=== PATIENT | male | born 1955 | race Hispanic/Latino ===

== ENCOUNTER 2017-01-26 18:57 | Observation (INO) | payer OTHER ==
[2017-01-26 18:57] VITALS: BMI 29.8
[2017-01-26] MEDS ORDERED: Sodium Chloride 0.9% 1,000 ML IV ONE (19:19)
--- NOTE | 2017-01-26 19:22 | C.PDOC ---
History Of Present Illness 61 year old patient, with a history of chest pain, coronary stent, hypertension , pancreatitis, CAD, CHF, diverticulitis, diabetes, and emphysema, presents to the ED complaining of chest pain that began today. Patient states he has been drinking alcohol for the past week. He also complains of epigastric pain and hard black stool. Patient is an alcohol abuser. Patient currently denies fever, chills, shortness of breath, palpitations, nausea, vomiting, numbness, weakness , headache, or light headedness. Time Seen by Provider: 01/26/17 19:34 Chief Complaint (Nursing): Chest Pain History Per: Patient History/Exam Limitations: no limitations Onset/Duration Of Symptoms: Hrs (today) Current Symptoms Are (Timing): Still Present Context: Other Severity: Moderate Pain Scale Rating Of: 4 Quality: "Pain" Exacerbating Factors: None Alleviating Factors: None Recent travel outside of the [place]: No Additional History Per: Prior Records Past Medical History Reviewed: Historical Data, Nursing Documentation, Vital Signs Vital Signs: Last Vital Signs Temp 98.5 F 01/26/17 18:59 Pulse 89 01/26/17 18:59 Resp 20 01/26/17 18:59 BP 150/71 01/26/17 18:59 Pulse Ox 99 01/26/17 19:41 - Medical History PMH: Anemia, Anxiety, Arthritis, Asthma, Benign Prostatic Hyperplasia, Bipolar Disorder, Bronchitis, CAD, CHF, COPD, Depression, Diabetes, Diverticulitis, Emphysema, Hepatitis (PATIENT STATED HE HAS HEPATITIS BUT COULD NOT RECALL WHICH ONE), HTN, Hypercholesterolemia, Migraine, Pancreatitis, Pneumonia, Seizures, Sleep Apnea Surgical History: CABG ((quadruple bypass)), Coronary Stent - [facility] Procedures ALCOHOL DETOXIFICATION (03/12/15) CORONAR ARTERIOGR-2 CATH (07/24/15) CORONARY ARTERY STENT INSERTION [id number] (07/24/15) DETOXIFICATION SERVICES FOR SUBSTANCE ABUSE TREATMENT (12/06/16) ESOPHAGOGASTRODUODENOSCOPY [EGD] W/CLOSED BIOPSY (05/21/13) GROUP PSYCHOTHERAPY (11/19/16) INDIVID PSYCHOTHERAP NEC (11/04/14) INDIVIDUAL PSYCHOTHERAPY, BEHAVIORAL (01/17/16) INDIVIDUAL PSYCHOTHERAPY, COGNITIVE-BEHAVIORAL (11/19/16) INDIVIDUAL PSYCHOTHERAPY, SUPPORTIVE (10/02/16) INSERTION OF ONE VASCULAR STENT (07/24/15) IRRIGATION OF EAR (05/23/15) LEFT HEART CARDIAC CATH (07/19/15) LT HEART ANGIOCARDIOGRAM (07/19/15) OTHER GROUP THERAPY (11/04/14) PACKED CELL TRANSFUSION (05/21/13) PERCUTANEOUS TRANSLUMINAL CORONARY ANGIOPLASTY [PTCA] (07/24/15) PROCEDURE ON SINGLE VESSEL (07/24/15) PSYCHIAT DRUG THERAP NEC (11/04/14) RT HEART ANGIOCARDIOGRAM (07/22/15) RT HEART CARDIAC CATH (07/22/15) VACCINATION NEC (09/28/14) Family History: States: Unknown Family Hx - Social History Hx Tobacco Use: Yes Hx Alcohol Use: Yes Hx Substance Use: Yes - Immunization History Hx Tetanus Toxoid Vaccination: Yes Hx Influenza Vaccination: Yes Hx Pneumococcal Vaccination: Yes Review Of Systems Except As Marked, All Systems Reviewed And Found Negative. Constitutional: Negative for: Fever, Chills Cardiovascular: Positive for: Chest Pain. Negative for: Palpitations, Light Headedness Respiratory: Negative for: Shortness of Breath Gastrointestinal: Positive for: Abdominal Pain. Negative for: Nausea, Vomiting Neurological: Negative for: Weakness, Numbness, Headache Physical Exam - Physical Exam Appears: Non-toxic, No Acute Distress, Other (EtOH on breath) Skin: Warm, Dry Head: Atraumatic, Normacephalic Oral Mucosa: Moist Neck: Normal ROM, Supple Chest: Symmetrical Cardiovascular: Rhythm Regular, No Murmur Respiratory: Normal Breath Sounds, No Rales, No Rhonchi, No Wheezing Gastrointestinal/Abdominal: Soft, Tenderness (epigastric), No Guarding, No Rebound, Other (mild non-specific abdominal pain) Rectal: Other (brown stool) Back: Normal Inspection, No CVA Tenderness Extremity: Normal ROM Neurological/Psych: Oriented x3, Normal Speech, Normal Cognition, Normal Motor, Normal Sensation ED Course And Treatment - Laboratory Results Result Diagrams: 01/26/17 19:29 01/26/17 19:29 ECG: Interpreted By Me, Viewed By Me ECG Rhythm: Sinus Rhythm, R BBB, Nonspecific Changes ECG Interpretation: No Acute Changes, No Changes From Prior (12/06/16), Abnormal Interpretation Of ECG: NSR, IRBBB, non-spc ST_T changes, non-significant change from old tracings of 12/06/2016 Rate From EC (bpm) O2 Sat by Pulse Oximetry: 99 (RA) Pulse Ox Interpretation: Normal Progress Note: Plan: -Labs. -EKG. -Chest x-ray. -Pepcid, IV fluids. -- Reassess and disposition Disposition Doctor Will See Patient In The: Hospital Counseled Patient/Family Regarding: Diagnosis - Disposition Referrals: Dennys Vasquez MD [Staff Provider] - Disposition: HOSPITALIZED Disposition Time: 20:57 Condition: STABLE - POA Core Measure Indicators: Chest Pain - Clinical Impression Clinical Impression: CAD (coronary artery disease) of artery bypass graft, Pancreatitis, Alcohol abuse with intoxication - Scribe Statement The provider has reviewed the documentation as recorded by the Scribe Mindy Dudley Provider Attestation: All medical record entries made by the Scribe were at my direction and personally dictated by me. I have reviewed the chart and agree that the record accurately reflects my personal performance of the history, physical exam, medical decision making, and the department course for this patient. I have also personally directed, reviewed, and agree with the discharge instructions and disposition.
[2017-01-26] MEDS ORDERED: Sodium Chloride 0.9% 1,000 ML ONE (19:31)
[2017-01-26 19:34] LABS: BASO # 0.1 K/uL (0.0-0.2); BASO % 1.3 % (0.0-2.0); EOS # 0.1 K/uL (0.0-0.7); EOS % 2.1 % (0.0-4.0); HEMATOCRIT 40.1 % (35.0-51.0); LYMPH # 2.4 K/uL (1.0-4.3); MEAN CELL VOLUME 75.4 fL (80.0-94.0); MEAN CORPUSCULAR HEMOGLOBIN 23.8 pg (27.0-31.0); MEAN CORPUSCULAR HGB CONC 31.6 g/dL (33.0-37.0); MEAN PLATELET VOLUME 7.9 fL (7.2-11.7); MONO # 0.8 K/uL (0.0-0.8); MONO % 11.1 % (0.0-10.0); NRBC % 0.1 % (0.0-2.0); RED CELL DISTRIBUTION WIDTH 23.5 % (11.5-14.5); WHITE BLOOD COUNT 6.9 K/uL (4.8-10.8)
[2017-01-26 19:43] LABS: CHLORIDE 102 mmol/L (98-107); POTASSIUM 3.3 mmol/L (3.6-5.2); SODIUM 143 mmol/L (132-148)
[2017-01-26 19:45] LABS: ALB/GLOB RATIO 1.1 (1.0-2.1); ALKALINE PHOSPHATASE 79 U/L (38-126); AST/SGOT 51 U/L (17-59); BILIRUBIN,TOTAL 0.2 mg/dL (0.2-1.3); CARBON DIOXIDE 23 mmol/L (22-30); GFR AFRICAN-AMERICAN > 60; TOTAL PROTEIN 7.4 g/dL (6.3-8.3)
[2017-01-26 19:46] LABS: ALCOHOL SERUM 265 mg/dl (0-10); ALT/SGPT 45 U/L (21-72); BLOOD UREA NITROGEN 10 mg/dL (9-20); CALCIUM 8.4 mg/dl (8.6-10.4); GLUCOSE,RANDOM 108 mg/dL (75-110)
[2017-01-26 19:47] LABS: PARTIAL THROMBOPLASTIN TIME 39 SECONDS (21-34)
[2017-01-26] MEDS: Metoprolol Succinate 25 mg XL Tab PO SCH (22:01)
[2017-01-26] MEDS ORDERED: Potassium Chloride 20 mEq/15 ml LIQ UD PO STA (22:21)
--- NOTE | 2017-01-27 08:42 | RAD ---
HISTORY: chest pain COMPARISON: No prior. TECHNIQUE: Chest PA and lateral FINDINGS: LUNGS: Mild patchy increased markings at the left lung base. Mild right hilar prominence. Nodular density at the left upper lung zone likely represents confluence of shadows with ribs and vessels. PLEURA: No significant pleural effusion identified. No pneumothorax apparent. CARDIOVASCULAR: Status post median sternotomy and CABG. OSSEOUS STRUCTURES: Degenerative changes in the spine. VISUALIZED UPPER ABDOMEN: Normal. OTHER FINDINGS: None. IMPRESSION: Mild patchy increased markings at the left lung base. Mild right hilar prominence. Nodular density at the left upper lung zone likely represents confluence of shadows with ribs and vessels.
[2017-01-27] MEDS: Pantoprazole 40 mg EC Tab PO SCH (09:03)
[2017-01-27] MEDS: Metoprolol Succinate 25 mg XL Tab PO SCH (09:03)
[2017-01-27] MEDS: Folic Acid 1 MG, Thiamine 100 MG, Multivitamin (MVI) 10 ML in Dextrose 5% In Water 1,00... IV SCH (12:01)
[2017-01-27 12:55] LABS: HEMATOCRIT 37.2 % (35.0-51.0); MEAN CELL VOLUME 76.6 fL (80.0-94.0); MEAN CORPUSCULAR HEMOGLOBIN 23.5 pg (27.0-31.0); MEAN CORPUSCULAR HGB CONC 30.7 g/dL (33.0-37.0); RED CELL DISTRIBUTION WIDTH 23.9 % (11.5-14.5)
[2017-01-27 12:57] LABS: CHLORIDE 101 mmol/L (98-107); SODIUM 139 mmol/L (132-148)
[2017-01-27 12:58] LABS: POTASSIUM 3.9 mmol/L (3.6-5.2)
[2017-01-27 13:00] LABS: GFR AFRICAN-AMERICAN > 60
[2017-01-27 13:01] LABS: BLOOD UREA NITROGEN 9 mg/dL (9-20); CALCIUM 8.4 mg/dl (8.6-10.4); CARBON DIOXIDE 23 mmol/L (22-30); GLUCOSE,RANDOM 101 mg/dL (75-110)
[2017-01-27] MEDS: Azithromycin 500 MG in Sodium Chloride 0.9% 250 ML IVPB SCH (20:00)
--- NOTE | 2017-01-27 23:36 | CP.PCM.HP ---
History of Present Illness - History of Present Illness History of Present Illness: Stormyif complain: chest pain x few hours HPI: 61 year old patient, with a history of chest pain, coronary stent, hypertension, pancreatitis, CAD, CHF, diverticulitis, diabetes, and emphysema, presents to the ED complaining of chest pain that began today. Patient states he has been drinking alcohol for the past week. He also complains of epigastric pain and hard black stool. Patient is an alcohol abuser. Patient currently denies fever, chills, shortness of breath, palpitations, nausea, vomiting, numbness, weakness, headache, or light headedness. Present on Admission - Present on Admission Any Indicators Present on Admission: No Review of Systems - Review of Systems Systems not reviewed;Unavailable: Acuity of Condition - Constitutional Constitutional: Fatigue, Lethargy, Malaise - EENT Eyes: absent: As Per HPI, Blind Spots, Blurred Vision, Change in Vision, Decreased Night Vision, Diplopia, Discharge, Dry Eye, Exophthalmos, Floaters, Irritation, Itchy Eyes, Loss of Peripheral Vision, Pain, Photophobia, Requires Corrective Lenses, Sees Flashes, Spots in Vision, Tunnel Vision, Other Visual Disturbances, Loss of Vision, Other Ears: absent: As Per HPI, Decreased Hearing, Ear Discharge, Ear Pain, Tinnitus, Abnormal Hearing, Disequilibrium, Dizziness, Other Nose/Mouth/Throat: absent: As Per HPI, Epistaxis, Nasal Congestion, Nasal Discharge, Nasal Obstruction, Nasal Trauma, Nose Pain, Post Nasal Drip, Sinus Pain, Sinus Pressure, Bleeding Gums, Change in Voice, Dental Pain, Dry Mouth, Dysphagia, Halitosis, Hoarsness, Lip Swelling, Mouth Lesions, Mouth Pain, Odynophagia, Sore Throat, Throat Swelling, Tongue Swelling, Facial Pain, Neck Pain, Neck Mass, Other - Cardiovascular Cardiovascular: Chest Pain, Dyspnea, Rapid Heart Rate. absent: As Per HPI, Acrocyanosis, Chest Pain at Rest, Chest Pain with Activity, Claudication, Diaphoresis, Dyspnea on Exertion, Edema, Irregular Heart Rhythm, Pain Radiating to Arm/Neck/Jaw, Leg Edema, Leg Ulcers, Lightheadedness, Orthopnea, Palpitations , Paroxysmal Nocturnal Dyspnea, Pedal Edema, Radiating Pain, Slow Heart Rate, Syncope, Other - Respiratory Respiratory: Dyspnea, Dyspnea on Exertion. absent: As Per HPI, Cough, Hemoptysis, Wheezing, Snoring, Stridor, Pain on Inspiration, Chest Congestion, Excessive Mucous Production, Change in Mucous Color, Pain with Coughing, Other - Gastrointestinal Gastrointestinal: absent: As Per HPI, Abdominal Pain, Belching, Bloating, Change in Bowel Habits, Change in Stool Character, Coffee Ground Emesis, Constipation, Cramping, Diarrhea, Dyspepsia, Dysphagia, Early Satiety, Excessive Flatus, Fecal Incontinence, Heartburn, Hematemesis, Hematochezia, Loose Stools, Melena, Nausea, Odynophagia, Temesmus, Vomiting, Other Past Patient History - Infectious Disease Hx of Infectious Diseases: None - Past Medical History & Family History Past Medical History?: Yes - Past Social History Smoking Status: Current Some Days Smoker - CARDIAC Hx Congestive Heart Failure: Yes Hx Hypercholesterolemia: Yes Hx Hypertension: Yes - PULMONARY Hx Asthma: Yes Hx Bronchitis: Yes Hx Chronic Obstructive Pulmonary Disease (COPD): Yes Hx Emphysema: Yes Hx Pneumonia: Yes Hx Sleep Apnea: Yes - NEUROLOGICAL Hx Migraine: Yes Hx Seizures: Yes - HEENT Hx HEENT Problems: No - RENAL Hx Chronic Kidney Disease: No - ENDOCRINE/METABOLIC Hx Endocrine Disorders: No - HEMATOLOGICAL/ONCOLOGICAL Hx Anemia: Yes - INTEGUMENTARY Hx Dermatological Problems: No - MUSCULOSKELETAL/RHEUMATOLOGICAL Hx Arthritis: Yes Hx Falls: Yes - GASTROINTESTINAL Hx Diverticulitis: Yes Hx Pancreatitis: Yes - GENITOURINARY/GYNECOLOGICAL Hx Genitourinary Disorders: Yes - PSYCHIATRIC Hx Anxiety: Yes Hx Bipolar Disorder: Yes Hx Depression: Yes Hx Substance Use: Yes - SURGICAL HISTORY Hx Coronary Artery Bypass Graft: Yes ((quadruple bypass)) Hx Coronary Stent: Yes - ANESTHESIA Hx Anesthesia: Yes Hx Anesthesia Reactions: No Hx Malignant Hyperthermia: No Meds Home Medications: Home Medication List Medication Instructions Recorded Confirmed Type Aspirin [Ecotrin] 81 mg PO DAILY #30 tabec 01/31/17 02/19/17 Rx Citalopram [celEXA] 40 mg PO DAILY #30 tab 01/31/17 Rx Gabapentin [Neurontin] 300 mg PO BID #60 cap 01/31/17 02/19/17 Rx Multivitamin [Daily Value] 1 each PO DAILY #30 tablet 01/31/17 02/19/17 Rx Pantoprazole [Protonix EC Tab] 40 mg PO DAILY #30 ect 01/31/17 02/19/17 Rx Pravastatin Sodium [Pravachol] 40 mg PO HS #30 tab 01/31/17 02/19/17 Rx Tamsulosin [Flomax] 0.4 mg PO HS #30 cap 01/31/17 02/19/17 Rx Topiramate [Topamax] 100 mg PO BID #60 tab 01/31/17 02/19/17 Rx Allergies/Adverse Reactions: Allergies Allergy/AdvReac Type Severity Reaction Status Date / Time No Known Allergies Allergy Verified 11/19/16 00:36 Physical Exam - Constitutional Appears: No Acute Distress - Eye Exam Eye Exam: EOMI, Normal appearance, PERRL Pupil Exam: NORMAL ACCOMODATION, PERRL - Respiratory Exam Respiratory Exam: Chest Wall Tenderness, Clear to Auscultation Bilateral, NORMAL BREATHING PATTERN - Cardiovascular Exam Cardiovascular Exam: REGULAR RHYTHM - GI/Abdominal Exam GI & Abdominal Exam: Normal Bowel Sounds, Tenderness. absent: Bruit, Diminished Bowel Sounds, Distended, Firm, Guarding, Hernia, Hyperactive Bowel Sounds, Hypoactive Bowel Sounds, Mass, Organomegaly, Pulsatile Mass, Rebound, Rigid, Soft - Rectal Exam Rectal Exam: Deferred Results - Vital Signs Recent Vital Signs: Last Vital Signs Temp 98.6 F 01/27/17 19:06 Pulse 88 01/27/17 19:06 Resp 20 01/27/17 19:06 BP 167/86 H 01/27/17 19:06 Pulse Ox 96 01/27/17 19:06 - Labs Result Diagrams: 01/29/17 07:22 01/30/17 06:40 Labs: Laboratory Results - last 24 hr 01/27/17 21:42 POC Glucose (mg/dL) 116 H Assessment & Plan (1) Pancreatitis Status: Acute Priority: High (2) Alcohol abuse Status: Acute (3) CAD (coronary artery disease) of artery bypass graft Status: Chronic Priority: High (4) ACS (acute coronary syndrome) Status: Ruled-out
[2017-01-28] MEDS: Metoprolol Succinate 25 mg XL Tab PO SCH ×2 (09:36→10:03)
[2017-01-28] MEDS: Pantoprazole 40 mg EC Tab PO SCH ×2 (09:36→10:01)
[2017-01-28] MEDS: Enoxaparin 40 mg Syringe SC SCH ×2 (09:37→10:01)
[2017-01-28] MEDS: Azithromycin 500 MG in Sodium Chloride 0.9% 250 ML IVPB SCH ×2 (09:39→10:21)
[2017-01-28] MEDS ORDERED: Sodium Chloride 0.9% 500 ML IV ONE (09:54)
--- NOTE | 2017-01-28 10:03 | CP.PCM.PN ---
<Wesley Bahen H - Last Filed: 01/28/17 10:17> Subjective - Date & Time of Evaluation Date of Evaluation: 01/28/17 Time of Evaluation: 09:50 - Subjective Subjective: PGY2 House Doctor Note - Rapid Response Note: Rapid called at 9:48 for hypotension. Patient says he sat up in bed and swung his legs to the side to start to get up. He felt very lightheaded. His BP was 85/51. Patient says this has happened to him before. He reports a history of CAD and CHF. Patient reports chronic mild chest pain. Patient reports difficulty breathing. Head of bed was increased to 45 degrees. He felt better. BP was 87/58 at this point. 500mL bolus to be given. 500ml to be given at 50cc/hr. Will check on patient's BP later. Orthostatics ordered for once patient is stable. Objective - Vital Signs/Intake and Output Vital Signs (last 24 hours): Temp Pulse Resp BP Pulse Ox 98.3 F 84 20 109/52 L 98 01/28/17 08:08 01/28/17 08:08 01/28/17 08:08 01/28/17 08:08 01/28/17 08:08 Intake and Output: 01/28/17 01/28/17 06:59 18:59 Intake Total 700 Output Total 1300 Balance -600 - Medications Medications: Current Medications Aspirin (Ecotrin) 81 mg PO DAILY [facility] Last Admin: 01/27/17 09:03 Dose: 81 mg Citalopram Hydrobromide (Celexa) 40 mg PO DAILY [facility] Last Admin: 01/27/17 09:05 Dose: 40 mg Doxazosin Mesylate (Cardura) 4 mg PO HS [facility] Last Admin: 01/27/17 21:06 Dose: 4 mg Enoxaparin Sodium (Lovenox) 40 mg SC DAILY [facility] Gabapentin (Neurontin) 300 mg PO BID [facility] Last Admin: 01/28/17 09:41 Dose: 300 mg Folic Acid 1 mg/ Thiamine HCl 100 mg/ Multivitamins/Vitamin C 10 ml/ Dextrose 1 ,011.2 mls @ 100 mls/hr IV 1200 [facility] Last Admin: 01/27/17 12:01 Dose: 100 mls/hr Azithromycin 500 mg/ Sodium (Chloride) 250 mls @ 250 mls/hr IVPB DAILY [facility] Last Admin: 01/28/17 09:39 Dose: 250 mls/hr Sodium Chloride (Sodium Chloride 0.9%) 500 mls @ 500 mls/hr IV .Q1H ONE Stop: 01/28/17 10:53 Sodium Chloride 500 ml/ IV (SUPPLIES) 500 mls @ 3,900.9 mls/hr IV ONCE ONE PRN Reason: 50 ML/KG/HR Stop: 01/28/17 09:55 Influenza Virus Vaccine (Afluria) 45 mcg IM .ONCE ONE Stop: 01/29/17 14:01 Lorazepam (Ativan) 1 mg IVP Q4H PRN PRN Reason: Seizure activity Last Admin: 01/27/17 15:43 Dose: 1 mg Losartan Potassium (Cozaar) 50 mg PO DAILY [facility] Last Admin: 01/27/17 19:04 Dose: 50 mg Metoprolol Succinate (Toprol Xl) 25 mg PO DAILY [facility] Last Admin: 01/27/17 09:03 Dose: 25 mg Nicotine (Nicoderm Cq) 1 patch TD DAILY [facility] Last Admin: 01/28/17 09:36 Dose: 1 patch Pantoprazole Sodium (Protonix Ec Tab) 40 mg PO DAILY [facility] Last Admin: 01/27/17 09:03 Dose: 40 mg Pneumococcal Polyvalent Vaccine (Pneumovax 23 Vaccine) 0.5 ml IM .ONCE ONE Stop: 01/29/17 14:01 Rosuvastatin Calcium (Crestor) 5 mg PO HS [facility] Last Admin: 01/27/17 21:06 Dose: 5 mg Topiramate (Topamax) 100 mg PO BID [facility] Last Admin: 01/27/17 19:04 Dose: 100 mg - Labs Labs: PT 11.5 SECONDS (9.7-12.2) 01/26/17 19:29 INR 1.0 01/26/17 19:29 APTT 39 SECONDS (21-34) H 01/26/17 19:29 <Janes Hopson - Last Filed: 02/26/17 15:13> Objective - Vital Signs/Intake and Output Vital Signs (last 24 hours): Temp Pulse Resp BP Pulse Ox 98.6 F 77 20 130/82 97 01/31/17 15:00 01/31/17 15:00 01/31/17 15:00 01/31/17 15:00 01/31/17 15:00 - Labs Labs: 01/29/17 07:22 01/30/17 06:40 PT 11.5 SECONDS (9.7-12.2) 01/26/17 19:29 INR 1.0 01/26/17 19:29 APTT 39 SECONDS (21-34) H 01/26/17 19:29 Attending/Attestation - Attestation I have personally seen and examined this patient.: Yes I have fully participated in the care of the patient.: Yes I have reviewed all pertinent clinical information, including history, physical exam and plan: Yes Notes (Text): Patient seen and examined with the resident. Agree with the residents evaluation, assessment and plan during rapid response.
[2017-01-28] MEDS: Folic Acid 1 MG, Thiamine 100 MG, Multivitamin (MVI) 10 ML in Dextrose 5% In Water 1,00... IV SCH (12:06)
--- NOTE | 2017-01-28 23:48 | CP.PCM.PN ---
Subjective - Date & Time of Evaluation Date of Evaluation: 01/28/17 Time of Evaluation: 12:59 - Subjective Subjective: Pt seen & evaluated, had rapid response today, dropped B.P on standing, is weak and dizzy Objective - Vital Signs/Intake and Output Vital Signs (last 24 hours): Temp Pulse Resp BP Pulse Ox 98.8 F 82 20 129/71 96 01/28/17 20:18 01/28/17 20:18 01/28/17 20:18 01/28/17 20:18 01/28/17 20:18 Intake and Output: 01/28/17 01/29/17 18:59 06:59 Output Total 450 Balance -450 - Medications Medications: Current Medications Aspirin (Ecotrin) 81 mg PO DAILY [facility] Last Admin: 01/28/17 10:03 Dose: 81 mg Citalopram Hydrobromide (Celexa) 40 mg PO DAILY [facility] Last Admin: 01/28/17 10:03 Dose: 40 mg Doxazosin Mesylate (Cardura) 4 mg PO HS [facility] Last Admin: 01/28/17 21:47 Dose: Not Given Enoxaparin Sodium (Lovenox) 40 mg SC DAILY [facility] Last Admin: 01/28/17 10:01 Dose: 40 mg Gabapentin (Neurontin) 300 mg PO BID [facility] Last Admin: 01/28/17 18:03 Dose: 300 mg Folic Acid 1 mg/ Thiamine HCl 100 mg/ Multivitamins/Vitamin C 10 ml/ Dextrose 1 ,011.2 mls @ 100 mls/hr IV 1200 [facility] Last Admin: 01/28/17 12:06 Dose: 100 mls/hr Azithromycin 500 mg/ Sodium (Chloride) 250 mls @ 250 mls/hr IVPB DAILY [facility] Last Admin: 01/28/17 10:21 Dose: 250 mls/hr Lorazepam (Ativan) 1 mg IVP Q4H PRN PRN Reason: Seizure activity Last Admin: 01/28/17 14:00 Dose: 1 mg Losartan Potassium (Cozaar) 50 mg PO DAILY [facility] Last Admin: 01/28/17 10:00 Dose: Not Given Metoprolol Succinate (Toprol Xl) 25 mg PO DAILY [facility] Last Admin: 01/28/17 10:03 Dose: Not Given Nicotine (Nicoderm Cq) 1 patch TD DAILY [facility] Last Admin: 03/15/17 09:36 Dose: 1 patch Pantoprazole Sodium (Protonix Ec Tab) 40 mg PO DAILY [facility] Last Admin: 01/28/17 10:01 Dose: 40 mg Rosuvastatin Calcium (Crestor) 5 mg PO HS [facility] Last Admin: 01/28/17 22:01 Dose: 5 mg Topiramate (Topamax) 100 mg PO BID [facility] Last Admin: 01/28/17 18:03 Dose: 100 mg - Labs Labs: PT 11.5 SECONDS (9.7-12.2) 01/26/17 19:29 INR 1.0 01/26/17 19:29 APTT 39 SECONDS (21-34) H 01/26/17 19:29 - Constitutional Appears: No Acute Distress - Head Exam Head Exam: ATRAUMATIC, NORMAL INSPECTION, NORMOCEPHALIC - Eye Exam Eye Exam: EOMI, Normal appearance, PERRL Pupil Exam: NORMAL ACCOMODATION, PERRL - Respiratory Exam Respiratory Exam: Clear to Ausculation Bilateral, NORMAL BREATHING PATTERN - Cardiovascular Exam Cardiovascular Exam: REGULAR RHYTHM, +S1, +S2. absent: Murmur Assessment and Plan (1) Pancreatitis Status: Acute (2) Alcohol abuse Status: Acute (3) CAD (coronary artery disease) of artery bypass graft Status: Chronic (4) ACS (acute coronary syndrome) Status: Ruled-out (5) Postural hypotension Assessment & Plan: give IV fluids Status: Acute
[2017-01-29 07:31] LABS: BASO % 0.8 % (0.0-2.0); EOS # 0.2 K/uL (0.0-0.7); EOS % 2.8 % (0.0-4.0); HEMATOCRIT 35.7 % (35.0-51.0); LYMPH # 1.3 K/uL (1.0-4.3); LYMPH % 23.1 % (20.0-40.0); MEAN CELL VOLUME 77.2 fL (80.0-94.0); MEAN CORPUSCULAR HGB CONC 32.4 g/dL (33.0-37.0); MEAN PLATELET VOLUME 8.4 fL (7.2-11.7); MONO # 0.6 K/uL (0.0-0.8); MONO % 10.9 % (0.0-10.0); NRBC % 0.1 % (0.0-2.0); RED CELL DISTRIBUTION WIDTH 22.7 % (11.5-14.5); WHITE BLOOD COUNT 5.8 K/uL (4.8-10.8)
[2017-01-29 07:51] LABS: CHLORIDE 105 mmol/L (98-107); POTASSIUM 3.2 mmol/L (3.6-5.2); SODIUM 140 mmol/L (132-148)
[2017-01-29 07:53] LABS: GFR AFRICAN-AMERICAN > 60
[2017-01-29 07:54] LABS: BLOOD UREA NITROGEN 10 mg/dL (9-20); CALCIUM 8.1 mg/dl (8.6-10.4); CARBON DIOXIDE 22 mmol/L (22-30); GLUCOSE,RANDOM 100 mg/dL (75-110)
[2017-01-29 07:55] LABS: MAGNESIUM 1.8 mg/dL (1.6-2.3)
[2017-01-29] MEDS ORDERED: Potassium Chloride 20 mEq ER Tab PO ONE ×2 (09:00→14:00)
[2017-01-29] MEDS: Pantoprazole 40 mg EC Tab PO SCH (09:51)
[2017-01-29] MEDS: Metoprolol Succinate 25 mg XL Tab PO SCH (09:53)
[2017-01-29] MEDS: Enoxaparin 40 mg Syringe SC SCH (09:53)
[2017-01-29] MEDS: Folic Acid 1 MG, Thiamine 100 MG, Multivitamin (MVI) 10 ML in Dextrose 5% In Water 1,00... IV SCH (12:09)
[2017-01-29] MEDS: Azithromycin 500 MG in Sodium Chloride 0.9% 250 ML IVPB SCH (12:31)
[2017-01-29] MEDS ORDERED: Pneumococcal 23-Valent Vaccine IM ONE (14:00)
[2017-01-29] MEDS ORDERED: Influenza Virus Vaccine 45 mcg/0.5 ml Syr IM ONE (14:00)
--- NOTE | 2017-01-29 14:25 | CON ---
DATE: 01/29/2017 REASON FOR CONSULTATION: Chest pain, dizziness, and postural hypotension. HISTORY OF PRESENT ILLNESS: The patient is a 61-year-old male who has a history of coronary artery d isease, status post coronary bypass surgery 6 years ago at [facility] and status post percutaneous coronary intervention to the posterior descending artery via saphenous vein graft in . The patient is an ETOH abuser and heavy smoker. He has multiple admissions for alcohol intox ication as well as exacerbation of chronic obstructive lung disease. He presented this time because of chest discomfort and melenotic stool. The patient did experience dizziness upon standing and post ural hypotension was documented The patient denies any recent fall or syncope. The patient denies a ny recent seizure activity. MEDICATIONS: Ativan 1 mg intravenously q. 4 hours p.r.n. for seizure activity, Zithromax 500 mg intr avenously daily, Cardura 4 mg once a day, Celexa 40 mg once a day, Cozaar 50 mg once a day, Crestor 5 mg once a day, aspirin 81 mg once a day, IV thiamine and folic acid, multivitamin infusion, K-Dur 20 mEq daily, Lovenox 40 mg subcutaneous once a day, Neurontin 300 mg twice a day, nicotine patch, Topa max 100 mg twice a day, Toprol-XL 25 mg once a day. PHYSICAL EXAMINATION: GENERAL: The patient is a middle-aged male who does not appear to be in acute distress. VITAL SIGNS: Blood pressure 137/76, heart rate 72, temperature 98.4, respirations 20. HEENT: Normocephalic. NECK: No JVD. CHEST: Bilateral rhonchi. HEART: S1, S2 regular. EXTREMITIES: No edema. LABORATORY DATA: SMA-7 is within normal limits except for potassium of 3.2. Calcium is below normal at 8.1. Magnesium is within normal limits at 1.8, PTT 39. INR is 1.0. D-dimer is within normal phillips its. Hemoglobin and hematocrit 11.5 and 77.2, white count and platelet count are within normal limit s. Alcohol level on admission was 265. Chest x-ray revealed COPD, prominent bronchovascular marking s. EKG could not be found in the [employer] database. Two sets of troponins were negative. Lipase 380 . ASSESSMENT: 1. Chest pain, myocardial infarction is ruled out. 2. Consider pancreatitis. 3. Hypokalemia. 4. Chronic heart disease, status post coronary artery bypass surgery as well as coronary stenting to the PDA. 5. Alcohol intoxication on admission. RECOMMENDATIONS: Continue current potassium replacement 20 mEq orally daily. Continue intravenous t hiamine, multivitamin, folic acid and vitamin C infusion. Continue Crestor at 5 mg once a day, Cozaa r at 50 mg once a day, Cardura 4 mg once a day, Toprol-XL 25 mg daily. I will obtain 12-lead EKG. T he patient was encouraged oral hydration. I will request a CT scan without contrast. Maxwell Moreno MD cc: [id number] TT: 01/29/2017 14:24:18 Confirmation # [id number] Dictation # [id number] sierra
--- NOTE | 2017-01-29 15:26 | CT ---
PROCEDURE: CT HEAD WITHOUT CONTRAST. HISTORY: dizzyness COMPARISON: 11/01/2015 TECHNIQUE: Axial computed tomography images were obtained through the head/brain without intravenous contrast. Radiation dose: Total exam DLP = 1111 mGy-cm. FINDINGS: HEMORRHAGE: No intracranial hemorrhage. BRAIN: No mass effect or edema. No atrophy or chronic microvascular ischemic changes. VENTRICLES: Unremarkable. No hydrocephalus. CALVARIUM: Unremarkable. PARANASAL SINUSES: Unremarkable as visualized. No significant inflammatory changes. MASTOID AIR CELLS: Unremarkable as visualized. No inflammatory changes. OTHER FINDINGS: None. IMPRESSION: No acute finding
[2017-01-30 06:56] LABS: CHLORIDE 102 mmol/L (98-107); POTASSIUM 3.6 mmol/L (3.6-5.2); SODIUM 136 mmol/L (132-148)
[2017-01-30 06:59] LABS: BLOOD UREA NITROGEN 12 mg/dL (9-20); CARBON DIOXIDE 25 mmol/L (22-30); GFR AFRICAN-AMERICAN > 60
[2017-01-30 07:00] LABS: CALCIUM 8.5 mg/dl (8.6-10.4); GLUCOSE,RANDOM 94 mg/dL (75-110)
[2017-01-30] MEDS: Pantoprazole 40 mg EC Tab PO SCH (10:08)
[2017-01-30] MEDS: Enoxaparin 40 mg Syringe SC SCH (10:09)
[2017-01-30] MEDS: Azithromycin 500 MG in Sodium Chloride 0.9% 250 ML IVPB SCH (10:11)
[2017-01-30] MEDS: Metoprolol Succinate 25 mg XL Tab PO SCH (10:11)
[2017-01-30] MEDS ORDERED: Metoprolol Succinate 25 mg XL Tab PO SCH (12:32)
[2017-01-30] MEDS ORDERED: Sodium Chloride 0.9% 500 ML IV SCH (12:45)
[2017-01-30] MEDS: Folic Acid 1 MG, Thiamine 100 MG, Multivitamin (MVI) 10 ML in Dextrose 5% In Water 1,00... IV SCH (12:57)
--- NOTE | 2017-01-30 18:01 | PN ---
DATE: 01/30/2017 The patient is still experiencing postural dizziness. There is documented postural hypotension. He denies any chest pain. The patient did experience diarrhea prior to his admission. PHYSICAL EXAMINATION: VITAL SIGNS: Blood pressure 129/78, heart rate 68, temperature 97.8, respiration 20. HEENT: Normocephalic. NECK: No JVD. CHEST: Bilateral rhonchi. HEART: S1, S2 regular. EXTREMITIES: Trace leg edema. LABORATORIES: Today's SMA-7 is within normal limits. Calcium is below normal at 8.5. Head CT scan done yesterday revealed no acute findings. ASSESSMENT: 1. Status post alcohol intoxication. 2. Coronary artery disease status post coronary artery bypass surgery as well as coronary stenting t o the posterior descending artery via saphenous vein graft. 3. Chronic obstructive lung disease. 4. Dehydration and postural hypotension. RECOMMENDATIONS: Continue current Crestor at 5 mg once a day, aspirin 81 mg once a day, subcutaneous Lovenox at 40 mg once a day. Hold Toprol-XL for now. I will review the echocardiographic study per formed today. Maxwell Moreno MD cc: [id number] TT: 01/30/2017 18:00:59 Confirmation # [id number] Dictation # [id number] [email or web address]
--- NOTE | 2017-01-31 00:17 | CP.PCM.PN ---
Subjective - Date & Time of Evaluation Date of Evaluation: 01/30/17 Time of Evaluation: 13:02 - Subjective Subjective: Pt seen & evalauted, is hypotensive, i d/c his B.P medication, francis Desai monitor pt Objective - Vital Signs/Intake and Output Vital Signs (last 24 hours): Temp Pulse Resp BP Pulse Ox 99.0 F 70 20 117/68 98 01/30/17 16:00 01/30/17 19:38 01/30/17 16:00 01/30/17 16:00 01/30/17 19:38 - Medications Medications: Current Medications Aspirin (Ecotrin) 81 mg PO DAILY [facility] Last Admin: 01/30/17 10:08 Dose: 81 mg Citalopram Hydrobromide (Celexa) 40 mg PO DAILY [facility] Last Admin: 01/30/17 10:08 Dose: 40 mg Enoxaparin Sodium (Lovenox) 40 mg SC DAILY [facility] Last Admin: 01/30/17 10:09 Dose: 40 mg Gabapentin (Neurontin) 300 mg PO BID [facility] Last Admin: 01/30/17 17:53 Dose: 300 mg Azithromycin 500 mg/ Sodium (Chloride) 250 mls @ 250 mls/hr IVPB DAILY [facility] Last Admin: 01/30/17 10:11 Dose: 250 mls/hr Lorazepam (Ativan) 1 mg IVP Q4H PRN PRN Reason: Seizure activity Last Admin: 01/29/17 01:18 Dose: 1 mg Nicotine (Nicoderm Cq) 1 patch TD DAILY [facility] Last Admin: 01/30/17 10:09 Dose: 1 patch Pantoprazole Sodium (Protonix Ec Tab) 40 mg PO DAILY [facility] Last Admin: 01/30/17 10:08 Dose: 40 mg Rosuvastatin Calcium (Crestor) 5 mg PO HS [facility] Last Admin: 01/30/17 21:51 Dose: 5 mg Topiramate (Topamax) 100 mg PO BID [facility] Last Admin: 01/30/17 17:53 Dose: 100 mg - Labs Labs: 01/29/17 07:22 01/30/17 06:40 PT 11.5 SECONDS (9.7-12.2) 01/26/17 19:29 INR 1.0 01/26/17 19:29 APTT 39 SECONDS (21-34) H 01/26/17 19:29 - Constitutional Appears: Well - Head Exam Head Exam: ATRAUMATIC, NORMAL INSPECTION, NORMOCEPHALIC - Respiratory Exam Respiratory Exam: Clear to Ausculation Bilateral, NORMAL BREATHING PATTERN - Cardiovascular Exam Cardiovascular Exam: REGULAR RHYTHM, +S1, +S2. absent: Murmur - GI/Abdominal Exam GI & Abdominal Exam: Soft, Normal Bowel Sounds. absent: Tenderness Assessment and Plan (1) Pancreatitis Status: Acute (2) Alcohol abuse Status: Acute (3) CAD (coronary artery disease) of artery bypass graft Status: Chronic (4) ACS (acute coronary syndrome) Status: Ruled-out (5) Postural hypotension Status: Acute
--- NOTE | 2017-01-31 00:19 | CP.PCM.PN ---
Subjective - Date & Time of Evaluation Date of Evaluation: 01/29/17 Time of Evaluation: 13:02 - Subjective Subjective: Patient seen and evalauted at bedside, remains hypotensive, reports chronic mild chest pain. Patient reports difficulty breathing. Head of bed was increased to 45 degrees. He felt better. BP was 87/58 at this point. 500mL bolus to be given. 500ml to be given at 50cc/hr. Will check on patient's BP later. Orthostatics ordered for once patient is stable. Objective - Vital Signs/Intake and Output Vital Signs (last 24 hours): Temp Pulse Resp BP Pulse Ox 99.0 F 70 20 117/68 98 01/30/17 16:00 01/30/17 19:38 01/30/17 16:00 01/30/17 16:00 01/30/17 19:38 - Medications Medications: Current Medications Aspirin (Ecotrin) 81 mg PO DAILY [facility] Last Admin: 01/30/17 10:08 Dose: 81 mg Citalopram Hydrobromide (Celexa) 40 mg PO DAILY [facility] Last Admin: 01/30/17 10:08 Dose: 40 mg Enoxaparin Sodium (Lovenox) 40 mg SC DAILY [facility] Last Admin: 01/30/17 10:09 Dose: 40 mg Gabapentin (Neurontin) 300 mg PO BID [facility] Last Admin: 01/30/17 17:53 Dose: 300 mg Azithromycin 500 mg/ Sodium (Chloride) 250 mls @ 250 mls/hr IVPB DAILY [facility] Last Admin: 01/30/17 10:11 Dose: 250 mls/hr Lorazepam (Ativan) 1 mg IVP Q4H PRN PRN Reason: Seizure activity Last Admin: 01/29/17 01:18 Dose: 1 mg Nicotine (Nicoderm Cq) 1 patch TD DAILY [facility] Last Admin: 01/30/17 10:09 Dose: 1 patch Pantoprazole Sodium (Protonix Ec Tab) 40 mg PO DAILY [facility] Last Admin: 01/30/17 10:08 Dose: 40 mg Rosuvastatin Calcium (Crestor) 5 mg PO HS [facility] Last Admin: 01/30/17 21:51 Dose: 5 mg Topiramate (Topamax) 100 mg PO BID [facility] Last Admin: 01/30/17 17:53 Dose: 100 mg - Labs Labs: 01/29/17 07:22 01/30/17 06:40 PT 11.5 SECONDS (9.7-12.2) 01/26/17 19:29 INR 1.0 01/26/17 19:29 APTT 39 SECONDS (21-34) H 01/26/17 19:29 - Constitutional Appears: No Acute Distress - Head Exam Head Exam: ATRAUMATIC, NORMAL INSPECTION, NORMOCEPHALIC - Eye Exam Eye Exam: EOMI, Normal appearance, PERRL Pupil Exam: NORMAL ACCOMODATION, PERRL - Respiratory Exam Respiratory Exam: Clear to Ausculation Bilateral, NORMAL BREATHING PATTERN - Cardiovascular Exam Cardiovascular Exam: Bradycardia, +S1, +S2. absent: Murmur Assessment and Plan (1) Pancreatitis Status: Acute (2) Alcohol abuse Status: Acute (3) CAD (coronary artery disease) of artery bypass graft Status: Chronic (4) ACS (acute coronary syndrome) Status: Ruled-out (5) Postural hypotension Assessment & Plan: monitor B.P D/C B.P meds Status: Acute
[2017-01-31] MEDS: Enoxaparin 40 mg Syringe SC SCH (10:07)
[2017-01-31] MEDS: Pantoprazole 40 mg EC Tab PO SCH (10:07)
[2017-01-31] MEDS: Azithromycin 500 MG in Sodium Chloride 0.9% 250 ML IVPB SCH (10:12)
--- NOTE | 2017-01-31 15:38 | CP.PCM.PN ---
Subjective - Date & Time of Evaluation Date of Evaluation: 01/31/17 Time of Evaluation: 10:25 - Subjective Subjective: Pt seen and examined today , dizziness improved , denies any chest pain, sob, head ache, blurred vision oob ambulates the hallway with cane , no c/o dizziness reported , bp remains stable after ambulation 120/72 Objective - Vital Signs/Intake and Output Vital Signs (last 24 hours): Temp Pulse Resp BP Pulse Ox 97.6 F 71 20 139/76 100 01/31/17 07:58 01/31/17 07:58 01/31/17 07:58 01/31/17 07:58 01/31/17 07:58 Intake and Output: 01/31/17 01/31/17 06:59 18:59 Output Total 800 Balance -800 - Medications Medications: Current Medications Aspirin (Ecotrin) 81 mg PO DAILY [facility] Last Admin: 01/31/17 10:07 Dose: 81 mg Citalopram Hydrobromide (Celexa) 40 mg PO DAILY [facility] Last Admin: 01/31/17 10:06 Dose: 40 mg Enoxaparin Sodium (Lovenox) 40 mg SC DAILY [facility] Last Admin: 01/31/17 10:07 Dose: 40 mg Gabapentin (Neurontin) 300 mg PO BID [facility] Last Admin: 01/31/17 10:06 Dose: 300 mg Azithromycin 500 mg/ Sodium (Chloride) 250 mls @ 250 mls/hr IVPB DAILY [facility] Last Admin: 01/31/17 10:12 Dose: 250 mls/hr Lorazepam (Ativan) 1 mg IVP Q4H PRN PRN Reason: Seizure activity Last Admin: 01/29/17 01:18 Dose: 1 mg Nicotine (Nicoderm Cq) 1 patch TD DAILY [facility] Last Admin: 01/31/17 10:07 Dose: 1 patch Pantoprazole Sodium (Protonix Ec Tab) 40 mg PO DAILY [facility] Last Admin: 01/31/17 10:07 Dose: 40 mg Rosuvastatin Calcium (Crestor) 5 mg PO HS [facility] Last Admin: 01/30/17 21:51 Dose: 5 mg Topiramate (Topamax) 100 mg PO BID [facility] Last Admin: 01/31/17 10:06 Dose: 100 mg - Labs Labs: 01/29/17 07:22 01/30/17 06:40 PT 11.5 SECONDS (9.7-12.2) 01/26/17 19:29 INR 1.0 01/26/17 19:29 APTT 39 SECONDS (21-34) H 01/26/17 19:29 Assessment and Plan - Assessment and Plan (Free Text) Assessment: A/P 61 yr old male admitted fro alcohol withdrawal postural hypotension ,x1 day , medication induced hypotension improved after d/c medication seen by Dr. Vasquez, stable for discharge home today and f/u with his office in 1 week discharge plan discussed with patient , who understands and agrees with plan Pt instructed to returns to ED if symptoms get worse or any concerning symptoms develops , who understands and agrees with plan All rx e prescribed to patient pharmacy, Pt instructed to pick medication from pharmacy
[2017-01-31 16:03] VITALS: BP 130/82; PULSE 77; TEMP 98.6; O2SAT 97
[2017-01-31 16:19] VITALS: RESP 20
--- NOTE | 2017-01-31 16:54 | CARD ---
APPROVED REPORT EXAM: Two-dimensional and M-mode echocardiogram with Doppler and color Doppler. Other Information Quality : GoodRhythm : NSR INDICATION Dyspnea CAD Chest Pain COPD smoker RISK FACTORS Hypertension Hyperlipidemia Diabetes 2D DIMENSIONS LVOT Diameter1.5 (1.8-2.4cm) M-Mode DIMENSIONS RVDd2.29 (2.1-3.2cm)Left Atrium (MM)4.35 (2.5-4.0cm) IVSd1.07 (0.7-1.1cm)Aortic Root3.25 (2.2-3.7cm) LVDd4.46 (4.0-5.6cm)Aortic Cusp Exc.1.03 (1.5-2.0cm) PWd1.14 (0.7-1.1cm)FS (%) 31 % LVDs3.06 (2.0-3.8cm)LVEF (%)59 (>50%) Aortic Valve AoV Peak Otqbfkid849.3cm/sAoV VTI47.9cmAO Peak GR.23mmHg LVOT Peak Akrkqmyv034.5cm/sLVOT VTI24.54cmAO Mean GR.13mmHg ENEDINA (VMAX)0.62bs3IDB (VTI)0.92cm2 Mitral Valve MV E Ofbtaiki69.9cm/sMV A Zwvgpsig354.9cm/sE/A ratio0.9 TDI E/Lateral E'0.0E/Medial E'0.0 Tricuspid Valve TR Peak Xsttxfui260hl/sTR Peak Gr.8yrCuJMJU10ugHe LEFT VENTRICLE The left ventricle is normal size. There is mild concentric left ventricular hypertrophy. The left ventricular function is normal. The left ventricular ejection fraction is within the normal range. No regional wall motion abnormalities noted. Transmitral Doppler flow pattern is Grade I-abnormal relaxation pattern. No left ventricle thrombus noted on this study. There is no ventricular septal defect visualized. There is no left ventricular aneurysm. There is no mass noted in the left ventricle. RIGHT VENTRICLE The right ventricle is normal size. There is normal right ventricular wall thickness. The right ventricular systolic function is normal. ATRIA The left atrium is mildly dilated. Chiari network is noted in the right atrium. The interatrial septum is intact with no evidence for an atrial septal defect. AORTIC VALVE The aortic valve is moderately calcified. No aortic regurgitation is present. There is mild to moderate valvular aortic stenosis. ENEDINA CALCULATED AT 1.1 HOWEVER THE LVOT IS UNDERMEASURED THUS LIKELY UNDERESTIMATED ENEDINA THE MEAN AV GRADIENT IS 24 MMHG. C/W MILD There is no aortic valvular vegetation. MITRAL VALVE Mitral annular calcification is moderate. The mitral valve leaflets are thickened and calcified. There is no evidence of mitral valve prolapse. There is no mitral valve stenosis. There is no mitral valve regurgitation noted. TRICUSPID VALVE The tricuspid valve is normal in structure and function. There is trace tricuspid regurgitation. There is no tricuspid valve prolapse or vegetation. There is no tricuspid valve stenosis. PULMONIC VALVE The pulmonary valve is normal in structure and function. There is trace to mild pulmonic valvular regurgitation. There is no pulmonic valvular stenosis. GREAT VESSELS The aortic root is normal in size. The ascending aorta is normal in size. The pulmonary artery is normal. The IVC is normal in size and collapses >50% with inspiration. PERICARDIAL EFFUSION The pericardium appears normal. There is no pleural effusion. <Conclusion> There is mild concentric left ventricular hypertrophy. Transmitral Doppler flow pattern is Grade I-abnormal relaxation pattern. The aortic valve is moderately calcified. There is mild to moderate valvular aortic stenosis. ENEDINA CALCULATED AT 1.1 HOWEVER THE LVOT IS UNDERMEASURED THUS LIKELY UNDERESTIMATED ENEDINA THE MEAN AV GRADIENT IS 24 MMHG. C/W MILD Mitral annular calcification is moderate. The mitral valve leaflets are thickened and calcified. There is trace tricuspid regurgitation. There is trace to mild pulmonic valvular regurgitation. The left ventricular ejection fraction is within the normal range.
--- NOTE | 2017-01-31 17:53 | PN ---
DATE: 01/31/2017 The patient denies chest pain or dizziness. He is ambulating. VITAL SIGNS: Blood pressure 130/82, heart rate 77, temperature 98.6, respirations 20. HENT: Normocephalic. NECK: No JVD. CHEST: Clear. HEART: S1, S2 regular. EXTREMITIES: No edema. LABORATORIES: Today's blood sugar are 96 and 84. ASSESSMENT: 1. Status post ethyl alcohol intoxication. 2. Improved postural hypertension and dehydration. 3. Coronary artery disease, status post coronary artery bypass surgery as well as coronary stenting. RECOMMENDATIONS: Case was discussed at length with the primary physician, Dr. Dennys Vasquez, and [facility] Any RAMOS. The patient can be discharged on Crestor, aspirin, Neurontin, Protonix, and Topamax. Cardura was discontinued. Maxwell Moreno MD cc: [id number] TT: 01/31/2017 17:53:09 Confirmation # [id number] Dictation # [id number]
--- NOTE | 2017-01-31 23:31 | CP.PCM.DIS ---
Provider - Provider Date of Admission: 01/27/17 17:39 Attending physician: Dennys Vasquez MD Time Spent in preparation of Discharge (in minutes): 30 Diagnosis - Discharge Diagnosis (1) Pancreatitis Status: Acute Priority: High (2) Alcohol abuse Status: Acute (3) CAD (coronary artery disease) of artery bypass graft Status: Chronic Priority: High (4) ACS (acute coronary syndrome) Status: Ruled-out (5) Postural hypotension Status: Acute Hospital Course - Lab Results Lab Results: Most Recent Lab Values WBC 5.8 K/uL (4.8-10.8) 01/29/17 07:22 RBC 4.62 Mil/uL (4.40-5.90) 01/29/17 07:22 Hgb 11.5 g/dL (12.0-18.0) L 01/29/17 07:22 Hct 35.7 % (35.0-51.0) 01/29/17 07:22 MCV 77.2 fL (80.0-94.0) L 01/29/17 07:22 MCH 25.0 pg (27.0-31.0) L 01/29/17 07:22 MCHC 32.4 g/dL (33.0-37.0) L 01/29/17 07:22 RDW 22.7 % (11.5-14.5) H 01/29/17 07:22 Plt Count 147 K/uL (130-400) 01/29/17 07:22 MPV 8.4 fL (7.2-11.7) 01/29/17 07:22 Neut % (Auto) 62.4 % (50.0-75.0) 01/29/17 07:22 Lymph % (Auto) 23.1 % (20.0-40.0) 01/29/17 07:22 [place] % (Auto) 10.9 % (0.0-10.0) H 01/29/17 07:22 Eos % (Auto) 2.8 % (0.0-4.0) 01/29/17 07:22 Baso % (Auto) 0.8 % (0.0-2.0) 01/29/17 07:22 Neut # 3.6 K/uL (1.8-7.0) 01/29/17 07:22 Lymph # 1.3 K/uL (1.0-4.3) 01/29/17 07:22 [place] # 0.6 K/uL (0.0-0.8) 01/29/17 07:22 Eos # 0.2 K/uL (0.0-0.7) 01/29/17 07:22 Baso # 0.0 K/uL (0.0-0.2) 01/29/17 07:22 PT 11.5 SECONDS (9.7-12.2) 01/26/17 19:29 INR 1.0 01/26/17 19:29 APTT 39 SECONDS (21-34) H 01/26/17 19:29 D-Dimer, Quantitative < 200 ng/mlDDU (0-243) 01/26/17 19:29 Sodium 136 mmol/L (132-148) 01/30/17 06:40 Potassium 3.6 mmol/L (3.6-5.2) 01/30/17 06:40 Chloride 102 mmol/L (98-107) 01/30/17 06:40 Carbon Dioxide 25 mmol/L (22-30) 01/30/17 06:40 Anion Gap 14 (10-20) 01/30/17 06:40 BUN 12 mg/dL (9-20) 01/30/17 06:40 Creatinine 0.9 MG/DL (0.8-1.5) 01/30/17 06:40 Est GFR ( Amer) > 60 01/30/17 06:40 Est GFR (Non-Af Amer) > 60 01/30/17 06:40 POC Glucose (mg/dL) 84 mg/dL (65-110) 01/31/17 11:49 Random Glucose 94 mg/dL (75-110) 01/30/17 06:40 Calcium 8.5 mg/dl (8.6-10.4) L 01/30/17 06:40 Magnesium 1.8 mg/dL (1.6-2.3) 01/29/17 07:22 Total Bilirubin 0.2 mg/dL (0.2-1.3) 01/26/17 19:29 AST 51 U/L (17-59) 01/26/17 19:29 ALT 45 U/L (21-72) 01/26/17 19:29 Alkaline Phosphatase 79 U/L (38-126) 01/26/17 19:29 Total Creatine Kinase 164 U/L (55-170) 01/27/17 11:00 CK-MB (Mass) 6.69 ng/mL (0.0-3.38) H 01/27/17 11:00 Troponin I 0.0180 ng/mL (0.00-0.120) 01/26/17 19:29 Troponin I, Quant < 0.0120 ng/mL (0.00-0.120) 01/27/17 11:00 Total Protein 7.4 g/dL (6.3-8.3) 01/26/17 19:29 Albumin 4.0 g/dL (3.5-5.0) 01/26/17 19:29 Globulin 3.5 gm/dL (2.2-3.9) 01/26/17 19:29 Albumin/Globulin Ratio 1.1 (1.0-2.1) 01/26/17 19:29 Lipase 380 U/L (23-300) H 01/26/17 19:29 Stool Occult Blood Negative (NEGATIVE) 01/26/17 19:31 Alcohol, Quantitative 265 mg/dl (0-10) H 01/26/17 19:29 Blood Type O POSITIVE 01/26/17 19:29 Antibody Screen Negative 01/26/17 19:29 - Hospital Course Hospital Course: Pt seen and examined today , dizziness improved , denies any chest pain, sob, head ache, blurred vision oob ambulates the hallway with cane , no c/o dizziness reported , bp remains stable after ambulation 120/72 chest psin resolved, b.p is stable dc her b.p medss pt is anxious but enies any complains is for d/c to home Discharge Exam - Head Exam Head Exam: ATRAUMATIC, NORMAL INSPECTION, NORMOCEPHALIC - Eye Exam Eye Exam: EOMI, Normal appearance, PERRL Pupil Exam: NORMAL ACCOMODATION, PERRL - ENT Exam ENT Exam: Normal Oropharynx - Respiratory Exam Respiratory Exam: Clear to PA & Lateral, NORMAL BREATHING PATTERN - Cardiovascular Exam Cardiovascular Exam: REGULAR RHYTHM, +S1, +S2 - GI/Abdominal Exam GI & Abdominal Exam: Normal Bowel Sounds Discharge Plan - Discharge Medications Prescriptions: Multivitamin [Daily Value] 1 each PO DAILY #30 tablet Aspirin [Ecotrin] 81 mg PO DAILY #30 tabec Tamsulosin [Flomax] 0.4 mg PO HS #30 cap Gabapentin [Neurontin] 300 mg PO BID #60 cap Pravastatin Sodium [Pravachol] 40 mg PO HS #30 tab Pantoprazole [Protonix EC Tab] 40 mg PO DAILY #30 ect Topiramate [Topamax] 100 mg PO BID #60 tab Citalopram [celEXA] 40 mg PO DAILY #30 tab - Follow Up Plan Condition: STABLE Disposition: HOME/ ROUTINE Instructions: Coronary Artery Disease (DC), How to Stop Smoking (DC), Pancreatitis (DC), Heart Healthy Diet (DC), Abuse of Alcohol (DC), Hypertension (DC) Additional Instructions: f/u with Dr. Vasquez office in 1 week continue medication as per Med. Rec. take Metoprolol only for BP Referrals: Dennys Vasquez MD [Staff Provider] -
--- NOTE | 2017-02-07 15:09 | CARD ---
APPROVED REPORT EKG Measurement Heart [id number] <Conclusion> Normal sinus rhythm Possible Left atrial enlargement Incomplete right bundle branch block Left ventricular hypertrophy Nonspecific T wave abnormality Abnormal ECG
--- NOTE | 2017-03-07 14:42 | CARD ---
APPROVED REPORT EKG Measurement Heart [id number] <Conclusion> Normal sinus rhythm Possible Left atrial enlargement Incomplete right bundle branch block Possible Inferior infarct, age undetermined Cannot rule out Anteroseptal infarct, age undetermined Abnormal ECG
== END 2017-01-31 17:20 | disposition home or self-care (01) ==
LOC: C.ER 18:57 → C.9E 20:59 → C.6T 21:37 → INTOOBSV 01-27 17:39 → OBSVTOIN 01-27 17:39
PROVIDERS: ADMIT Internal Medicine; ATTEND Internal Medicine
DX: K85.20 Alcohol induced acute pancreatitis without necrosis or infection (principal); I50.9 Heart failure, unspecified; K73.9 Chronic hepatitis, unspecified; I11.0 Hypertensive heart disease with heart failure; J43.9 Emphysema, unspecified; K86.0 Alcohol-induced chronic pancreatitis; F10.129 Alcohol abuse with intoxication, unspecified; R07.89 Other chest pain; I25.10 Atherosclerotic heart disease of native coronary artery without angina pectoris; Z95.1 Presence of aortocoronary bypass graft; Z95.5 Presence of coronary angioplasty implant and graft; E87.6 Hypokalemia; I95.1 Orthostatic hypotension; J45.909 Unspecified asthma, uncomplicated; E78.00 Pure hypercholesterolemia, unspecified; G43.909 Migraine, unspecified, not intractable, without status migrainosus; N40.0 Benign prostatic hyperplasia without lower urinary tract symptoms; M19.90 Unspecified osteoarthritis, unspecified site; D64.9 Anemia, unspecified
CPT/HCPCS: 36415; 70450; 71020; 80048; 80053; 82948; 83690; 83735; 84484; 85025; 85027; 85378; 85610; 85730; 86850; 86900; 93005; 93306; 96361; 96374; 97116; 97162; 97530; 99285; G0328; G0378; G0480; G8978; G8979; J0456; J1650; J2060; J3411; J7040; J7050; J7070

== ENCOUNTER 2017-02-19 20:03 | Observation (INO) | payer OTHER ==
[2017-02-19 20:04] VITALS: BMI 29.8
--- NOTE | 2017-02-19 20:16 | C.PDOC ---
History Of Present Illness Patient presents to the ED complaining of overdosing on pain medication. Patient reports he took some prescription pills prior to arrival for pain. He doesn't know what the medication is or how many he took. Patient admits to drinking alcohol today. Patient denies shortness of breath, chest pain, nausea, vomiting, abdominal pain, dizziness, headache, suicidal or homicidal ideation. Time Seen by Provider: 02/19/17 20:15 History Per: Patient History/Exam Limitations: intoxication Onset/Duration Of Symptoms: Hrs (prior to arrival) Current Symptoms Are (Timing): Still Present Suicide/Self Injury Attempted (Context): Ingestion (some pain pills) Modifying Factor(s): Alcohol, Other Severity: Moderate Pain Scale Rating Of: 4 Associated Symptoms: Depression Involuntary Hold By: None Recent travel outside of the [place]: No Additional History Per: EMS Past Medical History Reviewed: Historical Data, Nursing Documentation, Vital Signs Vital Signs: Last Vital Signs Temp 98 F 02/19/17 23:18 Pulse 66 02/19/17 23:54 Resp 16 02/19/17 23:54 BP 107/54 L 02/19/17 23:54 Pulse Ox 97 02/20/17 02:05 - Medical History PMH: Anemia, Anxiety, Arthritis, Asthma, Benign Prostatic Hyperplasia, Bipolar Disorder, Bronchitis, CAD, CHF, COPD, Depression, Diabetes, Diverticulitis, Emphysema, Hepatitis (PATIENT STATED HE HAS HEPATITIS BUT COULD NOT RECALL WHICH ONE), HTN, Hypercholesterolemia, Migraine, Pancreatitis, Pneumonia, Seizures, Sleep Apnea Surgical History: CABG ((quadruple bypass)), Coronary Stent - [facility] Procedures ALCOHOL DETOXIFICATION (03/12/15) CORONAR ARTERIOGR-2 CATH (07/24/15) CORONARY ARTERY STENT INSERTION [id number] (07/24/15) DETOXIFICATION SERVICES FOR SUBSTANCE ABUSE TREATMENT (12/06/16) ESOPHAGOGASTRODUODENOSCOPY [EGD] W/CLOSED BIOPSY (05/21/13) GROUP PSYCHOTHERAPY (11/19/16) INDIVID PSYCHOTHERAP NEC (11/04/14) INDIVIDUAL PSYCHOTHERAPY, BEHAVIORAL (01/17/16) INDIVIDUAL PSYCHOTHERAPY, COGNITIVE-BEHAVIORAL (11/19/16) INDIVIDUAL PSYCHOTHERAPY, SUPPORTIVE (10/02/16) INSERTION OF ONE VASCULAR STENT (07/24/15) IRRIGATION OF EAR (05/23/15) LEFT HEART CARDIAC CATH (07/19/15) LT HEART ANGIOCARDIOGRAM (07/19/15) OTHER GROUP THERAPY (11/04/14) PACKED CELL TRANSFUSION (05/21/13) PERCUTANEOUS TRANSLUMINAL CORONARY ANGIOPLASTY [PTCA] (07/24/15) PROCEDURE ON SINGLE VESSEL (07/24/15) PSYCHIAT DRUG THERAP NEC (11/04/14) RT HEART ANGIOCARDIOGRAM (07/22/15) RT HEART CARDIAC CATH (07/22/15) VACCINATION NEC (09/28/14) Family History: States: Unknown Family Hx - Social History Hx Tobacco Use: Yes Hx Alcohol Use: Yes Hx Substance Use: Yes - Immunization History Hx Tetanus Toxoid Vaccination: Yes Hx Influenza Vaccination: Yes Hx Pneumococcal Vaccination: Yes Review Of Systems Cardiovascular: Negative for: Chest Pain Respiratory: Negative for: Shortness of Breath Gastrointestinal: Negative for: Nausea, Vomiting, Abdominal Pain Neurological: Negative for: Headache, Dizziness Psych: Negative for: Suicidal ideation Physical Exam - Physical Exam Appears: Non-toxic, No Acute Distress, Other (EtOH on breath; depressed affect) Skin: Warm, Dry Head: Atraumatic, Normacephalic Eye(s): bilateral: EOMI Oral Mucosa: Moist Neck: Supple Chest: Symmetrical Cardiovascular: Rhythm Regular Respiratory: No Rales, No Rhonchi, No Wheezing Gastrointestinal/Abdominal: Soft, No Tenderness, No Guarding, No Rebound Back: No CVA Tenderness Extremity: Bilateral: Atraumatic Neurological/Psych: Oriented x3 (alert) ED Course And Treatment - Laboratory Results Result Diagrams: 02/19/17 20:49 02/19/17 20:49 ECG: Interpreted By Me, Viewed By Me ECG Rhythm: Sinus Rhythm (66), R BBB, Nonspecific Changes O2 Sat by Pulse Oximetry: 97 (RA) Pulse Ox Interpretation: Normal - Radiology CXR: Interpreted by Me, Viewed By Me CXR Interpretation: Yes: Other (unchnaged from 01/26/17, mild r hilar prominence) . No: Infiltrates, Fracture, Pnemothorax Progress Note: Plan: EKG, Labs, Chest x-ray, IV fluids. patient was cleared for discharge by dr gasca Reevaluation Time: 05:14 Reassessment Condition: Improved Disposition Counseled Patient/Family Regarding: Studies Performed, Diagnosis, Need For Followup - Disposition Disposition: HOME/ ROUTINE Disposition Time: 20:15 Condition: FAIR - Clinical Impression Clinical Impression: Alcohol abuse with intoxication - Scribe Statement The provider has reviewed the documentation as recorded by the Scribe Mindy Dudley Provider Attestation: All medical record entries made by the Scribe were at my direction and personally dictated by me. I have reviewed the chart and agree that the record accurately reflects my personal performance of the history, physical exam, medical decision making, and the department course for this patient. I have also personally directed, reviewed, and agree with the discharge instructions and disposition.
[2017-02-19] MEDS ORDERED: Sodium Chloride 0.9% 1,000 ML IV ONE (20:29)
[2017-02-19] MEDS ORDERED: Sodium Chloride 0.9% 1,000 ML ONE (20:33)
[2017-02-19 20:56] LABS: BASO # 0.1 K/uL (0.0-0.2); BASO % 1.2 % (0.0-2.0); EOS # 0.2 K/uL (0.0-0.7); EOS % 2.4 % (0.0-4.0); LYMPH # 2.8 K/uL (1.0-4.3); LYMPH % 28.6 % (20.0-40.0); MEAN CELL VOLUME 79.5 fL (80.0-94.0); MEAN CORPUSCULAR HEMOGLOBIN 25.6 pg (27.0-31.0); MEAN CORPUSCULAR HGB CONC 32.2 g/dL (33.0-37.0); MEAN PLATELET VOLUME 8.3 fL (7.2-11.7); MONO # 0.9 K/uL (0.0-0.8); RED CELL DISTRIBUTION WIDTH 19.8 % (11.5-14.5); WHITE BLOOD COUNT 9.8 K/uL (4.8-10.8)
[2017-02-19 21:05] LABS: CHLORIDE 99 mmol/L (98-107); POTASSIUM 4.2 mmol/L (3.6-5.2); SODIUM 137 mmol/L (132-148)
[2017-02-19 21:07] LABS: ALB/GLOB RATIO 1.1 (1.0-2.1); ALKALINE PHOSPHATASE 49 U/L (38-126); AST/SGOT 46 U/L (17-59); BILIRUBIN,TOTAL 0.4 mg/dL (0.2-1.3); BLOOD UREA NITROGEN 11 mg/dL (9-20); CARBON DIOXIDE 18 mmol/L (22-30); GFR AFRICAN-AMERICAN > 60; TOTAL PROTEIN 7.4 g/dL (6.3-8.3)
[2017-02-19 21:08] LABS: ALCOHOL SERUM 193 mg/dl (0-10); ALT/SGPT 29 U/L (21-72); CALCIUM 8.3 mg/dl (8.6-10.4); GLUCOSE,RANDOM 92 mg/dL (75-110)
[2017-02-19 22:11] LABS: URINE BILIRUBIN NEGATIVE (NEGATIVE); URINE BLOOD NEGATIVE (NEGATIVE); URINE COLOR Yellow (YELLOW); URINE GLUCOSE (UA) NORMAL (Normal); URINE KETONE NEGATIVE (NEGATIVE); URINE LEUKOCYTE ESTERASE NEG Leu/uL (Negative); URINE PROTEIN NEGATIVE (NEGATIVE); URINE UROBILINOGEN NORMAL mg/dL (0.2-1.0); WBC URINE < 1 /hpf (0-5)
[2017-02-19 23:54] VITALS: RESP 16
[2017-02-20 05:24] VITALS: BP 118/57; PULSE 64; TEMP 98.6; O2SAT 99
--- NOTE | 2017-02-20 11:26 | RAD ---
PROCEDURE: CHEST RADIOGRAPH, 1 VIEW HISTORY: Detox/Psy COMPARISON: 01/26/2017 FINDINGS: LUNGS: Clear. PLEURA: No pneumothorax or pleural fluid seen. CARDIOVASCULAR: Status post CABG. No congestive change. OSSEOUS STRUCTURES: No significant abnormalities. VISUALIZED UPPER ABDOMEN: Normal. OTHER FINDINGS: None. IMPRESSION: No active disease.
--- NOTE | 2017-02-23 12:23 | CARD ---
APPROVED REPORT EKG Measurement Heart [id number] <Conclusion> Normal sinus rhythm Possible Left atrial enlargement Incomplete right bundle branch block Nonspecific T wave abnormality Abnormal ECG
== END 2017-02-20 05:14 | disposition home or self-care (01) ==
LOC: C.ER 20:03 → C.9OBSV 02-20 02:03
PROVIDERS: ADMIT Emergency Medicine; ATTEND Emergency Medicine
DX: F10.229 Alcohol dependence with intoxication, unspecified (principal); Y90.6 Blood alcohol level of 120-199 mg/100 ml; N40.0 Benign prostatic hyperplasia without lower urinary tract symptoms; J45.909 Unspecified asthma, uncomplicated; I50.9 Heart failure, unspecified; I11.0 Hypertensive heart disease with heart failure; I25.10 Atherosclerotic heart disease of native coronary artery without angina pectoris; F31.9 Bipolar disorder, unspecified; E78.00 Pure hypercholesterolemia, unspecified; E11.9 Type 2 diabetes mellitus without complications; M19.90 Unspecified osteoarthritis, unspecified site; F32.9 Major depressive disorder, single episode, unspecified; F41.9 Anxiety disorder, unspecified; D64.9 Anemia, unspecified; Z95.5 Presence of coronary angioplasty implant and graft; Z95.1 Presence of aortocoronary bypass graft; G47.30 Sleep apnea, unspecified; Z87.891 Personal history of nicotine dependence; T50.902A Poisoning by unspecified drugs, medicaments and biological substances, intentional self-harm, initial encounter
CPT/HCPCS: 71010; 80053; 81001; 82948; 85025; 96360; 99285; G0378; G0480; J7040

== ENCOUNTER 2017-03-27 21:43 | Observation (INO) | payer OTHER ==
[2017-03-27 21:44] VITALS: BMI 29.8
--- NOTE | 2017-03-27 23:29 | C.PDOC ---
History Of Present Illness Patient presents to the ER with acute ETOH intoxication. Patient admits to consuming ETOH today. Denies any physical complaints. Time Seen by Provider: 03/27/17 23:28 Chief Complaint (Nursing): Substance Abuse History Per: Patient History/Exam Limitations: no limitations Onset/Duration Of Symptoms: Hrs Current Symptoms Are (Timing): Still Present Suicide/Self Injury Attempted (Context): None Modifying Factor(s): Alcohol Severity: None Pain Scale Rating Of: 0 Associated Symptoms: denies: Depression, Suicidal Thoughts, Suicidal Plan Involuntary Hold By: None Recent travel outside of the [place]: No Past Medical History Reviewed: Historical Data, Nursing Documentation, Vital Signs Vital Signs: Last Vital Signs Temp 97.8 F 03/28/17 05:28 Pulse 78 03/28/17 05:28 Resp 18 03/28/17 05:28 BP 137/68 03/28/17 05:28 Pulse Ox 97 03/28/17 05:28 - Medical History PMH: Anemia, Anxiety, Arthritis, Asthma, Benign Prostatic Hyperplasia, Bipolar Disorder, Bronchitis, CAD, CHF, COPD, Depression, Diabetes, Diverticulitis, Emphysema, Hepatitis (PATIENT STATED HE HAS HEPATITIS BUT COULD NOT RECALL WHICH ONE), HTN, Hypercholesterolemia, Migraine, Pancreatitis, Pneumonia, Seizures, Sleep Apnea Surgical History: CABG ((quadruple bypass)), Coronary Stent - [facility] Procedures ALCOHOL DETOXIFICATION (03/12/15) CORONAR ARTERIOGR-2 CATH (07/24/15) CORONARY ARTERY STENT INSERTION [id number] (07/24/15) DETOXIFICATION SERVICES FOR SUBSTANCE ABUSE TREATMENT (12/06/16) ESOPHAGOGASTRODUODENOSCOPY [EGD] W/CLOSED BIOPSY (05/21/13) GROUP PSYCHOTHERAPY (11/19/16) INDIVID PSYCHOTHERAP NEC (11/04/14) INDIVIDUAL PSYCHOTHERAPY, BEHAVIORAL (01/17/16) INDIVIDUAL PSYCHOTHERAPY, COGNITIVE-BEHAVIORAL (11/19/16) INDIVIDUAL PSYCHOTHERAPY, SUPPORTIVE (10/02/16) INSERTION OF ONE VASCULAR STENT (07/24/15) IRRIGATION OF EAR (05/23/15) LEFT HEART CARDIAC CATH (07/19/15) LT HEART ANGIOCARDIOGRAM (07/19/15) OTHER GROUP THERAPY (11/04/14) PACKED CELL TRANSFUSION (05/21/13) PERCUTANEOUS TRANSLUMINAL CORONARY ANGIOPLASTY [PTCA] (07/24/15) PROCEDURE ON SINGLE VESSEL (07/24/15) PSYCHIAT DRUG THERAP NEC (11/04/14) RT HEART ANGIOCARDIOGRAM (07/22/15) RT HEART CARDIAC CATH (07/22/15) VACCINATION NEC (09/28/14) Family History: States: No Known Family Hx - Social History Hx Tobacco Use: Yes Hx Alcohol Use: Yes Hx Substance Use: Yes - Immunization History Hx Tetanus Toxoid Vaccination: Yes Hx Influenza Vaccination: Yes Hx Pneumococcal Vaccination: Yes Review Of Systems Constitutional: Negative for: Fever, Chills Gastrointestinal: Negative for: Nausea, Vomiting, Diarrhea Neurological: Positive for: Other (ETOH intoxication) Physical Exam - Physical Exam Appears: Non-toxic, Other (ETOH on breath) Skin: Warm, Dry Oral Mucosa: Moist Chest: Symmetrical, No Tenderness Cardiovascular: Rhythm Regular, No Murmur Respiratory: No Rales, No Rhonchi, No Wheezing Gastrointestinal/Abdominal: Soft, No Tenderness Neurological/Psych: Oriented x3 ED Course And Treatment O2 Sat by Pulse Oximetry: 96 (Room air) Pulse Ox Interpretation: Normal ED OBSERVATION Discharge: Yes Date of observation admission: 03/27/17 Time of observation admission: 23:34 - Observation admission statement Patient is being placed in observation because:: acute alcohol intoxication - Goals of Observation Goals of observation are:: sobriety - Progress Note Progress Note: 03/27/17 23:35 vitals stable 03/28/17 01:37 no complaints 03/28/17 03:37 vitals stable Disposition Counseled Patient/Family Regarding: Studies Performed, Diagnosis, Need For Followup - Disposition Disposition: HOME/ ROUTINE Disposition Time: 23:34 Condition: FAIR - Clinical Impression Clinical Impression: Alcohol abuse, Alcohol intoxication - Scribe Statement The provider has reviewed the documentation as recorded by the Scribmiquel Garay All medical record entries made by the Scribe were at my direction and personally dictated by me. I have reviewed the chart and agree that the record accurately reflects my personal performance of the history, physical exam, medical decision making, and the department course for this patient. I have also personally directed, reviewed, and agree with the discharge instructions and disposition. Decision To Admit - . Patient Diagnosis: Alcohol abuse, Alcohol intoxication
[2017-03-28 05:29] VITALS: BP 137/68; PULSE 78; RESP 18; TEMP 97.8
[2017-03-28 05:46] VITALS: O2SAT 96
== END 2017-03-28 05:46 | disposition home or self-care (01) ==
LOC: C.ER 21:43 → C.9OBSV 23:33
PROVIDERS: ADMIT Emergency Medicine; ATTEND Emergency Medicine
DX: F10.129 Alcohol abuse with intoxication, unspecified (principal); D64.9 Anemia, unspecified; F41.8 Other specified anxiety disorders; I25.10 Atherosclerotic heart disease of native coronary artery without angina pectoris; N40.0 Benign prostatic hyperplasia without lower urinary tract symptoms; K75.9 Inflammatory liver disease, unspecified
CPT/HCPCS: 82948; 99284; G0378

== ENCOUNTER 2017-04-21 17:26 | Emergency (ER) | payer OTHER ==
[2017-04-21 17:27] VITALS: BMI 29.8
[2017-04-21] MEDS ORDERED: Albuterol-Ipratrop 3 mg / 0.5 (3 ml) UD IH STA (18:55)
[2017-04-21 19:08] LABS: BASO # 0.1 K/uL (0.0-0.2); BASO % 1.6 % (0.0-2.0); EOS # 0.2 K/uL (0.0-0.7); EOS % 2.1 % (0.0-4.0); LYMPH # 1.9 K/uL (1.0-4.3); LYMPH % 23.8 % (20.0-40.0); MEAN CELL VOLUME 75.6 fL (80.0-94.0); MEAN CORPUSCULAR HGB CONC 30.5 g/dL (33.0-37.0); MEAN PLATELET VOLUME 8.8 fL (7.2-11.7); MONO # 0.8 K/uL (0.0-0.8); MONO % 10.3 % (0.0-10.0); RED CELL DISTRIBUTION WIDTH 17.6 % (11.5-14.5); WHITE BLOOD COUNT 7.8 K/uL (4.8-10.8)
[2017-04-21 19:16] LABS: CHLORIDE 104 mmol/L (98-107); POTASSIUM 3.4 mmol/L (3.6-5.2); SODIUM 145 mmol/L (132-148)
[2017-04-21 19:18] LABS: ALB/GLOB RATIO 1.2 (1.0-2.1); AST/SGOT 36 U/L (17-59); BILIRUBIN,TOTAL 0.4 mg/dL (0.2-1.3); CARBON DIOXIDE 29 mmol/L (22-30); GFR AFRICAN-AMERICAN > 60
[2017-04-21 19:19] LABS: ALKALINE PHOSPHATASE 70 U/L (38-126); ALT/SGPT 24 U/L (21-72); BLOOD UREA NITROGEN 7 mg/dL (9-20); CALCIUM 8.2 mg/dl (8.6-10.4); GLUCOSE,RANDOM 112 mg/dL (75-110)
[2017-04-21 19:20] LABS: ALCOHOL SERUM 244 mg/dl (0-10)
[2017-04-21] MEDS ORDERED: Albuterol-Ipratrop 3 mg / 0.5 (3 ml) UD ONE (19:26)
[2017-04-21 20:06] LABS: RBC URINE 1 /hpf (0-3); URINE BACTERIA RARE (<OCC); URINE BILIRUBIN NEGATIVE (NEGATIVE); URINE BLOOD NEGATIVE (NEGATIVE); URINE COLOR Yellow (YELLOW); URINE GLUCOSE (UA) NORMAL (Normal); URINE KETONE NEGATIVE (NEGATIVE); URINE LEUKOCYTE ESTERASE NEG Leu/uL (Negative); URINE PROTEIN 1+ mg/dL (NEGATIVE); WBC URINE 1 /hpf (0-5)
[2017-04-21 20:45] VITALS: BP 127/58; PULSE 79; RESP 20; TEMP 98.5; O2SAT 100
--- NOTE | 2017-04-21 21:13 | C.PDOC ---
Time Seen by Provider: 04/21/17 18:24 Chief Complaint (Nursing): Chest Pain History Per: Patient, EMS History/Exam Limitations: intoxication Onset/Duration Of Symptoms: Days (1), Intermittent Episodes Current Symptoms Are (Timing): Still Present Severity: Moderate Quality: "Pain" Associated Symptoms: Dyspnea Modifying Factors: Other Indicated Below Additional History Per: Prior Records Past Medical History Reviewed: Historical Data, Nursing Documentation, Vital Signs Vital Signs: Last Vital Signs Temp 98.5 F 04/21/17 20:44 Pulse 79 04/21/17 20:44 Resp 20 04/21/17 20:44 BP 127/58 L 04/21/17 20:44 Pulse Ox 100 04/21/17 20:44 - Medical History PMH: Anemia (iron deficiency), Anxiety, Arthritis, Asthma, Benign Prostatic Hyperplasia, Bipolar Disorder, Bronchitis, CAD, CHF, COPD, Depression, Diabetes , Diverticulitis, Emphysema, Hepatitis (PATIENT STATED HE HAS HEPATITIS BUT COULD NOT RECALL WHICH ONE), HTN, Hypercholesterolemia, Hyperlipidemia, Hypothyroidism, Migraine, Pancreatitis, Pneumonia, Seizures, Sleep Apnea Surgical History: CABG ((quadruple bypass) 2010), Coronary Stent - [facility] Procedures ALCOHOL DETOXIFICATION (03/12/15) CORONAR ARTERIOGR-2 CATH (07/24/15) CORONARY ARTERY STENT INSERTION [id number] (07/24/15) DETOXIFICATION SERVICES FOR SUBSTANCE ABUSE TREATMENT (12/06/16) ESOPHAGOGASTRODUODENOSCOPY [EGD] W/CLOSED BIOPSY (05/21/13) GROUP PSYCHOTHERAPY (11/19/16) INDIVID PSYCHOTHERAP NEC (11/04/14) INDIVIDUAL PSYCHOTHERAPY, BEHAVIORAL (01/17/16) INDIVIDUAL PSYCHOTHERAPY, COGNITIVE-BEHAVIORAL (11/19/16) INDIVIDUAL PSYCHOTHERAPY, SUPPORTIVE (10/02/16) INSERTION OF ONE VASCULAR STENT (07/24/15) IRRIGATION OF EAR (05/23/15) LEFT HEART CARDIAC CATH (07/19/15) LT HEART ANGIOCARDIOGRAM (07/19/15) OTHER GROUP THERAPY (11/04/14) PACKED CELL TRANSFUSION (05/21/13) PERCUTANEOUS TRANSLUMINAL CORONARY ANGIOPLASTY [PTCA] (07/24/15) PROCEDURE ON SINGLE VESSEL (07/24/15) PSYCHIAT DRUG THERAP NEC (11/04/14) RT HEART ANGIOCARDIOGRAM (07/22/15) RT HEART CARDIAC CATH (07/22/15) VACCINATION NEC (09/28/14) Family History: States: Unknown Family Hx - Social History Hx Tobacco Use: Yes Hx Alcohol Use: Yes Hx Substance Use: No - Immunization History Hx Tetanus Toxoid Vaccination: Yes Hx Influenza Vaccination: Yes Hx Pneumococcal Vaccination: Yes Review Of Systems Constitutional: Negative for: Fever Cardiovascular: Positive for: Chest Pain Respiratory: Positive for: Shortness of Breath. Negative for: Hemoptysis Gastrointestinal: Negative for: Vomiting Musculoskeletal: Negative for: Neck Pain, Back Pain Skin: Negative for: Rash Neurological: Negative for: Weakness Physical Exam - Physical Exam Appears: No Acute Distress, Chronically Ill, Other (AOB, intoxicated) Skin: Warm, Dry Head: Atraumatic Eye(s): bilateral: PERRL Neck: Normal ROM, Supple Cardiovascular: Rhythm Regular Respiratory: Normal Breath Sounds, No Accessory Muscle Use Gastrointestinal/Abdominal: Soft Extremity: Normal ROM, No Calf Tenderness Neurological/Psych: Oriented x3, Normal Motor, Normal Sensation ED Course And Treatment - Laboratory Results Result Diagrams: 04/21/17 19:03 04/21/17 19:03 Lab Interpretation: No Changes Compared To Prior Results ECG: Interpreted By Me, Viewed By Me ECG Rhythm: Sinus Rhythm, Nonspecific Changes Rate From EC O2 Sat by Pulse Oximetry: 100 Pulse Ox Interpretation: Normal - Radiology CXR: Interpreted by Me, Viewed By Me CXR Interpretation: Yes: No Acute Disease Progress - Interventions Interventions:: Observation, Oxygen - Medications Administered Oral: Aspirin Inhaled nebulized: Anticholinergic, Beta-2 agonist Intravenous: Other (PPI) - Data Reviewed Data Reviewed: Lab, Diagnostic imaging, EKG, Old records - Patient Status Patient status: Partially improved - Continuity of Care Discussed patient case with:: Patient, ED Nurse, PMD Disposition Discussed With : Dennys Vasquez Comment: He accepted pt on his service. Doctor Will See Patient In The: Hospital Counseled Patient/Family Regarding: Studies Performed, Diagnosis, Smoking Cessation - Disposition Disposition: HOSPITALIZED Disposition Time: 21:14 Condition: FAIR - Clinical Impression Clinical Impression: Alcohol abuse, Chest pain
--- NOTE | 2017-04-22 08:26 | RAD ---
PROCEDURE: CHEST RADIOGRAPH, 1 VIEW HISTORY: chest pain COMPARISON: 02/19/2017 FINDINGS: LUNGS: Mild to moderate venous congestion with left basilar airspace opacity and small left pleural effusion. Right hilar prominence. PLEURA: As above. CARDIOVASCULAR: Cardiomegaly. Status post median sternotomy and CABG. OSSEOUS STRUCTURES: Degenerative changes in the spine and shoulders. VISUALIZED UPPER ABDOMEN: Normal. OTHER FINDINGS: None. IMPRESSION: Mild to moderate venous congestion with left basilar airspace opacity and small left pleural effusion. Right hilar prominence. Cardiomegaly. Status post median sternotomy and CABG.
--- NOTE | 2017-04-23 12:19 | CARD ---
APPROVED REPORT EKG Measurement Heart [id number] <Conclusion> Normal sinus rhythm T wave abnormality, consider inferolateral ischemia Abnormal ECG
== END 2017-04-21 21:29 | disposition short-term general hospital (02) ==
LOC: C.ER 17:26 → UNDOADMOB 21:15 → C.9E 21:15 → C.ER 21:29
DX: F10.120 Alcohol abuse with intoxication, uncomplicated (principal); Y90.8 Blood alcohol level of 240 mg/100 ml or more; R07.9 Chest pain, unspecified
CPT/HCPCS: 71010; 80053; 81001; 83690; 83880; 84484; 85025; 85610; 85730; 93005; 94640; 96374; 99285; C9113; G0480

== ENCOUNTER 2017-04-28 11:28 | Inpatient (IN) | payer OTHER, MEDICAID ==
[2017-04-28 11:29] VITALS: BMI 29.8
[2017-04-28] MEDS ORDERED: Sodium Chloride 0.9% 1,000 ML IV ONE (12:28)
[2017-04-28] MEDS ORDERED: Sodium Chloride 0.9% 1,000 ML ONE (12:37)
--- NOTE | 2017-04-28 12:41 | C.PDOC ---
History Of Present Illness 61 y/o male presents to ED with complaint of mid-sternal chest pain "for a while ", over last couple weeks. Patient reports past history of CABG (2010 as per prior records) and notes he has not been taking his regular medications. Patient admits to etoh abuse over last few weeks, noting last drink was yesterday. He reports currently feeling withdrawal symptoms of shaking and agitation. Denies vomiting but reports he has been dry heaving. Otherwise, denies fevers, chills, shortness of breath, new weakness or numbness, or other associated symptoms. Time Seen by Provider: 04/28/17 12:17 Chief Complaint (Nursing): Chest Pain History Per: Patient History/Exam Limitations: no limitations Onset/Duration Of Symptoms: Days Current Symptoms Are (Timing): Still Present Severity: Moderate Pain Scale Rating Of: 6 Quality: "Pain" Associated Symptoms: denies: Dyspnea, Syncope Exacerbating Factors: None Alleviating Factors: None Recent travel outside of the [place]: No Past Medical History Reviewed: Historical Data, Nursing Documentation, Vital Signs Vital Signs: Last Vital Signs Temp 98.9 F 04/28/17 16:10 Pulse 78 04/28/17 16:10 Resp 20 04/28/17 16:10 BP 140/55 L 04/28/17 16:10 Pulse Ox 98 04/28/17 16:10 - Medical History PMH: Anemia (iron deficiency), Anxiety, Arthritis, Asthma, Benign Prostatic Hyperplasia, Bipolar Disorder, Bronchitis, CAD, CHF, COPD, Depression, Diabetes , Diverticulitis, Emphysema, Hepatitis (PATIENT STATED HE HAS HEPATITIS BUT COULD NOT RECALL WHICH ONE), HTN, Hypercholesterolemia, Hyperlipidemia, Hypothyroidism, Migraine, Pancreatitis, Pneumonia, Seizures, Sleep Apnea Surgical History: CABG ((quadruple bypass) 2010), Coronary Stent - [facility] Procedures ALCOHOL DETOXIFICATION (03/12/15) CORONAR ARTERIOGR-2 CATH (07/24/15) CORONARY ARTERY STENT INSERTION [id number] (07/24/15) DETOXIFICATION SERVICES FOR SUBSTANCE ABUSE TREATMENT (12/06/16) ESOPHAGOGASTRODUODENOSCOPY [EGD] W/CLOSED BIOPSY (05/21/13) GROUP PSYCHOTHERAPY (11/19/16) INDIVID PSYCHOTHERAP NEC (11/04/14) INDIVIDUAL PSYCHOTHERAPY, BEHAVIORAL (01/17/16) INDIVIDUAL PSYCHOTHERAPY, COGNITIVE-BEHAVIORAL (11/19/16) INDIVIDUAL PSYCHOTHERAPY, SUPPORTIVE (10/02/16) INSERTION OF ONE VASCULAR STENT (07/24/15) IRRIGATION OF EAR (05/23/15) LEFT HEART CARDIAC CATH (07/19/15) LT HEART ANGIOCARDIOGRAM (07/19/15) OTHER GROUP THERAPY (11/04/14) PACKED CELL TRANSFUSION (05/21/13) PERCUTANEOUS TRANSLUMINAL CORONARY ANGIOPLASTY [PTCA] (07/24/15) PROCEDURE ON SINGLE VESSEL (07/24/15) PSYCHIAT DRUG THERAP NEC (11/04/14) RT HEART ANGIOCARDIOGRAM (07/22/15) RT HEART CARDIAC CATH (07/22/15) VACCINATION NEC (09/28/14) Family History: States: Unknown Family Hx - Social History Hx Tobacco Use: Yes Hx Alcohol Use: Yes Hx Substance Use: No - Immunization History Hx Tetanus Toxoid Vaccination: Yes Hx Influenza Vaccination: Yes Hx Pneumococcal Vaccination: Yes Review Of Systems Except As Marked, All Systems Reviewed And Found Negative. Constitutional: Negative for: Fever, Chills Cardiovascular: Positive for: Chest Pain. Negative for: Palpitations Respiratory: Negative for: Cough, Shortness of Breath, Wheezing Gastrointestinal: Negative for: Vomiting, Abdominal Pain Skin: Negative for: Rash Neurological: Negative for: Headache, Dizziness Physical Exam - Physical Exam Appears: Non-toxic, No Acute Distress, Other (tremulous) Skin: Normal Color, Warm, Dry Head: Atraumatic, Normacephalic Eye(s): bilateral: Normal Inspection, PERRL, EOMI Oral Mucosa: Moist Neck: Normal ROM, Supple Chest: Symmetrical Cardiovascular: Rhythm Regular, No Friction Rub, No Murmur Respiratory: Normal Breath Sounds, No Rales, No Rhonchi, No Wheezing Gastrointestinal/Abdominal: Soft, No Tenderness, No Guarding, No Rebound Back: Normal Inspection Extremity: Normal ROM, Capillary Refill Neurological/Psych: Oriented x3, Normal Speech, Normal Cognition ED Course And Treatment - Laboratory Results Result Diagrams: 04/28/17 12:45 04/28/17 12:45 ECG: Interpreted By Me ECG Rhythm: Sinus Rhythm ECG Interpretation: No Changes From Prior (compared with 04/23/17) Rate From EC (bpm) O2 Sat by Pulse Oximetry: 100 (RA) Pulse Ox Interpretation: Normal - Other Rad Chest X-Ray X-Ray: Viewed By Me, Read By Radiologist Interpretation: IMPRESSION: Cardiomegaly. Mild subsegmental basilar atelectasis. Progress Note: Treated with Ativan and IVFs. Cardiac workup ordered. Medical Decision Making Medical Decision Making: ativan given for withdrawals. PAtient reports that he still feel slightly shaky on re-eval so librium given. The case was discussed with Dr. Vasquez who agrees to admit the patient to telemetry. Disposition - Disposition Disposition: HOSPITALIZED Disposition Time: 13:00 Condition: GOOD - Clinical Impression Clinical Impression: Chest discomfort, Alcohol withdrawal - PA / BACK OFFICE MEDICAL ASSISTANT / Resident Statement MD/DO has reviewed & agrees with the documentation as recorded. - Scribe Statement The provider has reviewed the documentation as recorded by the Scribe Antonino Muller All medical record entries made by the Dora were at my direction and personally dictated by me. I have reviewed the chart and agree that the record accurately reflects my personal performance of the history, physical exam, medical decision making, and the department course for this patient. I have also personally directed, reviewed, and agree with the discharge instructions and disposition.
[2017-04-28 12:52] LABS: BASO # 0.1 K/uL (0.0-0.2); EOS % 0.1 % (0.0-4.0)
[2017-04-28 13:02] LABS: INR 1.1
[2017-04-28 13:06] LABS: BASO % 1.3 % (0.0-2.0); HEMATOCRIT 32.1 % (35.0-51.0); LYMPH # 0.7 K/uL (1.0-4.3); LYMPH % 7.2 % (20.0-40.0); MEAN CORPUSCULAR HEMOGLOBIN 22.4 pg (27.0-31.0); MEAN CORPUSCULAR HGB CONC 30.3 g/dL (33.0-37.0); MEAN PLATELET VOLUME 8.3 fL (7.2-11.7); MONO # 0.9 K/uL (0.0-0.8); MONO % 9.4 % (0.0-10.0); PLATELET COUNT 159 K/uL (130-400); RED CELL DISTRIBUTION WIDTH 17.6 % (11.5-14.5); WHITE BLOOD COUNT 9.4 K/uL (4.8-10.8)
--- NOTE | 2017-04-28 13:07 | RAD ---
HISTORY: abd pain COMPARISON: Chest x-ray performed 04/21/17 TECHNIQUE: Chest, one view. FINDINGS: Examination limited by habitus. LUNGS: Mild subsegmental basilar atelectasis. Please note that chest x-ray has limited sensitivity for the detection of pulmonary masses. PLEURA: No significant pleural effusion identified. No definite pneumothorax . CARDIOVASCULAR: Cardiomegaly. Median sternotomy wires with evidence of CABG. OSSEOUS STRUCTURES: Degenerative changes. VISUALIZED UPPER ABDOMEN: Unremarkable. OTHER FINDINGS: None. IMPRESSION: Cardiomegaly. Mild subsegmental basilar atelectasis.
[2017-04-28 13:09] LABS: CHLORIDE 97 mmol/L (98-107); SODIUM 136 mmol/L (132-148)
[2017-04-28 13:10] LABS: POTASSIUM 3.3 mmol/L (3.6-5.2)
[2017-04-28 13:11] LABS: GFR AFRICAN-AMERICAN > 60
[2017-04-28 13:12] LABS: ALB/GLOB RATIO 1.2 (1.0-2.1); ALKALINE PHOSPHATASE 78 U/L (38-126); ALT/SGPT 43 U/L (21-72); AST/SGOT 53 U/L (17-59); BLOOD UREA NITROGEN 6 mg/dL (9-20); CALCIUM 8.7 mg/dl (8.6-10.4); CARBON DIOXIDE 24 mmol/L (22-30); GLUCOSE,RANDOM 89 mg/dL (75-110); TOTAL PROTEIN 7.7 g/dL (6.3-8.3)
[2017-04-28 13:20] LABS: NEUTROPHIL 85 % (50-75); REACTIVE LYMPHOCYTES 1 % (0-0); TOTAL CELLS COUNTED 100
--- NOTE | 2017-04-28 15:29 | CP.PCM.HP ---
History of Present Illness - History of Present Illness History of Present Illness: Cheif complain: chest pain, shaking 61 y/o male who has CAD, chronic alcohoilc, depression h/o several previous hospitalizations presents to ED with complaint of mid-sternal chest pain "for a while", over last couple weeks. Patient reports past history of CABG (2010 as per prior records) and notes he has not been taking his regular medications. Patient admits to etoh abuse over last few weeks, noting last drink was yesterday. He reports currently feeling withdrawal symptoms of shaking and agitation. Denies vomiting but reports he has been dry heaving. he feels parasthesias all over the body, he is anxious and depressed .Otherwise, denies fevers, chills, shortness of breath, new weakness or numbness, or other associated symptoms. Present on Admission - Present on Admission Any Indicators Present on Admission: Yes Review of Systems - Review of Systems Systems not reviewed;Unavailable: Acuity of Condition, Intoxicated - Constitutional Constitutional: Fatigue, Lethargy, Malaise - EENT Eyes: absent: As Per HPI, Blind Spots, Blurred Vision, Change in Vision, Decreased Night Vision, Diplopia, Discharge, Dry Eye, Exophthalmos, Floaters, Irritation, Itchy Eyes, Loss of Peripheral Vision, Pain, Photophobia, Requires Corrective Lenses, Sees Flashes, Spots in Vision, Tunnel Vision, Other Visual Disturbances, Loss of Vision, Other Nose/Mouth/Throat: absent: As Per HPI, Epistaxis, Nasal Congestion, Nasal Discharge, Nasal Obstruction, Nasal Trauma, Nose Pain, Post Nasal Drip, Sinus Pain, Sinus Pressure, Bleeding Gums, Change in Voice, Dental Pain, Dry Mouth, Dysphagia, Halitosis, Hoarsness, Lip Swelling, Mouth Lesions, Mouth Pain, Odynophagia, Sore Throat, Throat Swelling, Tongue Swelling, Facial Pain, Neck Pain, Neck Mass, Other - Cardiovascular Cardiovascular: Chest Pain, Dyspnea - Gastrointestinal Gastrointestinal: Abdominal Pain, Dyspepsia - Musculoskeletal Musculoskeletal: Muscle Weakness, Numbness, Tingling - Integumentary Integumentary: Dry Skin - Neurological Neurological: Dizziness, Weakness - Psychiatric Psychiatric: Anxiety Additional comments: shaking and tremor all over Past Patient History - Infectious Disease Hx of Infectious Diseases: None - Past Medical History & Family History Past Medical History?: Yes - Past Social History Smoking Status: Heavy Smoker > 10 Cigarettes Daily - CARDIAC Hx Congestive Heart Failure: Yes Hx Hypercholesterolemia: Yes Hx Hypertension: Yes - PULMONARY Hx Asthma: Yes Hx Bronchitis: Yes Hx Chronic Obstructive Pulmonary Disease (COPD): Yes Hx Emphysema: Yes Hx Pneumonia: Yes Hx Sleep Apnea: Yes - NEUROLOGICAL Hx Migraine: Yes Hx Seizures: Yes - HEENT Hx HEENT Problems: No - RENAL Hx Chronic Kidney Disease: No - ENDOCRINE/METABOLIC Hx Hypothyroidism: Yes - HEMATOLOGICAL/ONCOLOGICAL Hx Anemia: Yes (iron deficiency) - INTEGUMENTARY Hx Dermatological Problems: No - MUSCULOSKELETAL/RHEUMATOLOGICAL Hx Arthritis: Yes - GASTROINTESTINAL Hx Diverticulitis: Yes Hx Pancreatitis: Yes - GENITOURINARY/GYNECOLOGICAL Hx Sexually Transmitted Disorders: No - PSYCHIATRIC Hx Anxiety: Yes Hx Bipolar Disorder: Yes Hx Depression: Yes Hx Substance Use: No - SURGICAL HISTORY Hx Coronary Artery Bypass Graft: Yes ((quadruple bypass) 2010) Hx Coronary Stent: Yes - ANESTHESIA Hx Anesthesia: Yes Hx Anesthesia Reactions: No Hx Malignant Hyperthermia: No Meds Allergies/Adverse Reactions: Allergies Allergy/AdvReac Type Severity Reaction Status Date / Time No Known Allergies Allergy Verified 04/28/17 11:42 Physical Exam - Constitutional Appears: Toxic - Head Exam Head Exam: ATRAUMATIC, NORMAL INSPECTION, NORMOCEPHALIC - Eye Exam Eye Exam: EOMI, Normal appearance, PERRL Pupil Exam: NORMAL ACCOMODATION, PERRL - ENT Exam ENT Exam: Mucous Membranes Moist - Respiratory Exam Respiratory Exam: Clear to Auscultation Bilateral - Cardiovascular Exam Cardiovascular Exam: REGULAR RHYTHM - GI/Abdominal Exam GI & Abdominal Exam: Normal Bowel Sounds, Soft, Tenderness Additional comments: epigastric - Neurological Exam Neurological exam: Alert, Oriented x3 - Psychiatric Exam Psychiatric exam: Anxious, Depressed - Skin Skin Exam: Dry, Intact, Normal Color, Warm Results - Vital Signs Recent Vital Signs: Last Vital Signs Temp 99.3 F 04/28/17 14:45 Pulse 84 04/28/17 14:45 Resp 18 04/28/17 14:45 BP 178/79 H 04/28/17 14:45 Pulse Ox 98 04/28/17 14:45 - Labs Result Diagrams: 04/28/17 12:45 04/28/17 12:45 Assessment & Plan (1) Alcohol withdrawal Status: Acute (2) Chest discomfort Status: Acute (3) Abdominal pain Status: Acute
[2017-04-28] MEDS ORDERED: Dexamethasone 4 mg/1 ml ONE (17:20)
[2017-04-28] MEDS ORDERED: Lidocaine 5% Patch TD ONE (17:20)
[2017-04-28] MEDS ORDERED: Metoprolol Succinate 50 mg XL Tab PO SCH (19:39)
[2017-04-28] MEDS ORDERED: Multivitamin (MVI) 10 ML, Thiamine 100 MG, Folic Acid 1 MG in Sodium Chloride 0.9% 1,00... IV ONE (19:57)
--- NOTE | 2017-04-28 20:07 | CP.PCM.CON ---
History of Present Illness - History of Present Illness History of Present Illness: 61 year old with DM, HTN, Mixed hyperlipidemia, complicated with CAD post CABG 2010, stent at [facility] 2014 on PDA, noncompliant, no meds, + etoh, smoking admitted with CP, no ekg changes, DT prevention, r/o KS, observe closely, had negative enzymes so far Review of Systems - Review of Systems Systems not reviewed;Unavailable: Altered Mental Status - Constitutional Constitutional: Anorexia, Weakness - EENT Eyes: absent: Discharge Ears: absent: Ear Discharge, Dizziness Nose/Mouth/Throat: absent: Epistaxis - Cardiovascular Cardiovascular: Chest Pain. absent: Acrocyanosis, Diaphoresis, Leg Edema, Palpitations, Syncope - Respiratory Respiratory: absent: Cough, Dyspnea, Hemoptysis - Gastrointestinal Gastrointestinal: absent: Abdominal Pain, Diarrhea, Vomiting - Genitourinary Genitourinary: absent: Change in Urinary Stream Past Patient History - Infectious Disease Hx of Infectious Diseases: None - Past Medical History & Family History Past Medical History?: Yes - Past Social History Smoking Status: Heavy Smoker > 10 Cigarettes Daily - CARDIAC Hx Congestive Heart Failure: Yes Hx Hypercholesterolemia: Yes Hx Hypertension: Yes - PULMONARY Hx Asthma: Yes Hx Bronchitis: Yes Hx Chronic Obstructive Pulmonary Disease (COPD): Yes Hx Emphysema: Yes Hx Pneumonia: Yes Hx Sleep Apnea: Yes - NEUROLOGICAL Hx Migraine: Yes Hx Seizures: Yes - HEENT Hx HEENT Problems: No - RENAL Hx Chronic Kidney Disease: No - ENDOCRINE/METABOLIC Hx Hypothyroidism: Yes - HEMATOLOGICAL/ONCOLOGICAL Hx Anemia: Yes (iron deficiency) - INTEGUMENTARY Hx Dermatological Problems: No - MUSCULOSKELETAL/RHEUMATOLOGICAL Hx Arthritis: Yes - GASTROINTESTINAL Hx Diverticulitis: Yes Hx Pancreatitis: Yes - GENITOURINARY/GYNECOLOGICAL Hx Sexually Transmitted Disorders: No - PSYCHIATRIC Hx Anxiety: Yes Hx Bipolar Disorder: Yes Hx Depression: Yes Hx Substance Use: No - SURGICAL HISTORY Hx Coronary Artery Bypass Graft: Yes ((quadruple bypass) 2010) Hx Coronary Stent: Yes - ANESTHESIA Hx Anesthesia: Yes Hx Anesthesia Reactions: No Hx Malignant Hyperthermia: No Meds Allergies/Adverse Reactions: Allergies Allergy/AdvReac Type Severity Reaction Status Date / Time No Known Allergies Allergy Verified 04/28/17 11:42 - Medications Medications: Current Medications Aspirin (Aspirin Chewable) 81 mg PO DAILY [facility] Enoxaparin Sodium (Lovenox) 40 mg SC DAILY [facility] Multivitamins/Vitamin C 10 ml/Thiamine HCl 100 mg/ Folic Acid 1 mg/ Sodium Chloride 1,011.2 mls @ 80 mls/hr IV .[id number] ONE Stop: 04/29/17 08:35 Metoprolol Succinate (Toprol Xl) 50 mg PO DAILY EM[facility] Rosuvastatin Calcium (Crestor) 10 mg PO HS EMILIE Physical Exam - Constitutional Appears: Non-toxic - Head Exam Head Exam: ATRAUMATIC - Eye Exam Eye Exam: EOMI - ENT Exam ENT Exam: Mucous Membranes Moist - Neck Exam Neck exam: Negative for: Lymphadenopathy, Thyromegaly - Respiratory Exam Respiratory Exam: Clear to Auscultation Bilateral. absent: Rales - Cardiovascular Exam Cardiovascular Exam: REGULAR RHYTHM, Systolic Murmur - GI/Abdominal Exam GI & Abdominal Exam: Normal Bowel Sounds. absent: Organomegaly - Rectal Exam Rectal Exam: Deferred - Extremities Exam Extremities exam: Positive for: normal capillary refill. Negative for: calf tenderness - Neurological Exam Neurological exam: Alert, Oriented x3 - Psychiatric Exam Psychiatric exam: Normal Mood - Skin Skin Exam: Dry Results - Vital Signs Recent Vital Signs: Last Vital Signs Temp 98.9 F 04/28/17 16:10 Pulse 78 04/28/17 16:10 Resp 20 04/28/17 16:10 BP 140/55 L 04/28/17 16:10 Pulse Ox 100 04/28/17 18:51 - Labs Result Diagrams: 04/28/17 12:45 04/28/17 12:45 Labs: Laboratory Results - last 24 hr 04/28/17 16:29 POC Glucose (mg/dL) 75 Assessment & Plan (1) Chest discomfort Status: Acute Comment: Rule out KS, unlikely PE or dissection clinically (2) CAD (coronary artery disease) of artery bypass graft Status: Chronic Priority: High (3) Diabetes Status: Chronic (4) Hypertension Status: Chronic
[2017-04-28] MEDS: Enoxaparin 40 mg Syringe SC SCH (21:03)
[2017-04-28] MEDS: Multivitamin (MVI) 10 ML, Thiamine 100 MG, Folic Acid 1 MG in Sodium Chloride 0.9% 1,00... IV SCH (21:19)
[2017-04-29] MEDS: Enoxaparin 40 mg Syringe SC SCH (09:28)
[2017-04-29] MEDS: Pantoprazole 40 mg EC Tab PO SCH (09:28)
[2017-04-29] MEDS: Ferric Sodium Gluconat Complex 62.5 mg/5 ml Vial IVPB SCH (09:29)
[2017-04-29] MEDS: Metoprolol Succinate 25 mg XL Tab PO SCH (09:31)
--- NOTE | 2017-04-29 12:58 | CP.PCM.PN ---
Subjective - Date & Time of Evaluation Date of Evaluation: 04/29/17 Time of Evaluation: 13:00 - Subjective Subjective: No further chest pain, observe for delirium tremens. No CT, with history of coronary artery disease needs an echo and stress test as outpatient. Objective - Vital Signs/Intake and Output Vital Signs (last 24 hours): Temp Pulse Resp BP Pulse Ox 98.3 F 74 18 172/93 H 99 04/29/17 07:20 04/29/17 07:20 04/29/17 07:20 04/29/17 07:20 04/29/17 07:20 Intake and Output: 04/29/17 04/29/17 06:59 18:59 Intake Total 880 Balance 880 - Medications Medications: Current Medications Aspirin (Aspirin Chewable) 81 mg PO DAILY [facility] Last Admin: 04/29/17 09:28 Dose: 81 mg Citalopram Hydrobromide (Celexa) 20 mg PO DAILY [facility] Last Admin: 04/29/17 09:29 Dose: 20 mg Enoxaparin Sodium (Lovenox) 40 mg SC DAILY [facility] Last Admin: 04/29/17 09:28 Dose: 40 mg Ferric Sodium Gluconate Complex (Ferrlecit) 125 mg IVPB DAILY [facility] Stop: 05/07/17 10:01 Last Admin: 04/29/17 09:29 Dose: 125 mg Gabapentin (Neurontin) 300 mg PO BID [facility] Last Admin: 04/29/17 09:29 Dose: 300 mg Multivitamins/Vitamin C 10 ml/Thiamine HCl 100 mg/ Folic Acid 1 mg/ Sodium Chloride 1,011.2 mls @ 80 mls/hr IV DAILY@2030 [facility] Last Admin: 04/28/17 21:19 Dose: 80 mls/hr Metoprolol Succinate (Toprol Xl) 25 mg PO DAILY [facility] Last Admin: 04/29/17 09:31 Dose: 25 mg Pantoprazole Sodium (Protonix Ec Tab) 40 mg PO DAILY [facility] Last Admin: 04/29/17 09:28 Dose: 40 mg Rosuvastatin Calcium (Crestor) 5 mg PO DAILY [facility] Last Admin: 04/29/17 09:29 Dose: 5 mg Tamsulosin HCl (Flomax) 0.4 mg PO DAILY [facility] Last Admin: 04/29/17 09:29 Dose: 0.4 mg Topiramate (Topamax) 100 mg PO BID [facility] Last Admin: 04/29/17 09:29 Dose: 100 mg Trazodone HCl (Desyrel) 50 mg PO DAILY [facility] Last Admin: 04/29/17 09:29 Dose: 50 mg - Labs Labs: PT 12.3 SECONDS (9.7-12.2) H 04/28/17 12:45 INR 1.1 04/28/17 12:45 APTT 37 SECONDS (21-34) H 04/28/17 12:45 - Constitutional Appears: Non-toxic - Head Exam Head Exam: ATRAUMATIC Additional comments: sleepy - Eye Exam Eye Exam: EOMI - ENT Exam ENT Exam: Mucous Membranes Moist - Neck Exam Neck Exam: absent: Lymphadenopathy, Thyromegaly - Respiratory Exam Respiratory Exam: Clear to Ausculation Bilateral. absent: Rales - Cardiovascular Exam Cardiovascular Exam: REGULAR RHYTHM, Murmur - GI/Abdominal Exam GI & Abdominal Exam: Normal Bowel Sounds. absent: Organomegaly - Rectal Exam Rectal Exam: Deferred - Extremities Exam Extremities Exam: Normal Capillary Refill. absent: Calf Tenderness - Neurological Exam Neurological Exam: Alert, Oriented x3 - Psychiatric Exam Psychiatric exam: Normal Mood - Skin Skin Exam: Dry Assessment and Plan (1) Chest discomfort Status: Acute (2) CAD (coronary artery disease) of artery bypass graft Status: Chronic (3) Diabetes Status: Chronic (4) Hypertension Status: Chronic
--- NOTE | 2017-04-29 18:41 | CON ---
DATE: 04/29/2017 CHIEF COMPLAINT AND REASON FOR CONSULTATION: The patient referred by Dr. Vasquez as patient has history of alcohol dependence and depression. HISTORY OF PRESENT ILLNESS: This is the case of a 61-year-old male who is well known to me from previous consult with history of chronic depression as well as alcohol dependence. The patient has been admitted numerous times in the past. The patient was admitted here complaining of midsternal chest pain. The patient has history of CABG in the past, but did admit that he has been feeling depressed and has been drinking regularly for the last few weeks. The patient states he drinks 1-2 bottles of vodka. The patient's blood alcohol level was not done in the ER, but states that he has been feeling sick and also he is interested to go for detox. The patient reports he has been stressed out over his family. He said he was supposed to come here earlier, but was brought to [facility] and he lost $210. The patient continues to be distressed with his chronic stress issues, family problems, unable to maintain sobriety. Today, patient is still awaiting medical clearance as patient was complaining of chest pain. The patient was seen by Dr. Muller. PAST PSYCHIATRIC HISTORY: History of multiple psych admissions at [facility]. He was recently admitted because of suicidal ideation where he threatened to jump off a bridge. The patient has been on psych medication. He was taking Celexa, trazodone. He has been detoxed numerous times in the past. MEDICAL HISTORY: As stated, history of depression, anxiety, asthma, BPH, history of CAD, CHF, diabetes, hypertension, hypercholesterolemia, thyroid problems, pancreatitis, seizures, history of stent placement in the past. DRUG AND ALCOHOL HISTORY: The patient is a smoker. He also is a chronic alcohol drinker. He drinks, according to him, 1-2 bottles of vodka daily. He has been admitted numerous times in the past. ALLERGIES: No known allergies. PSYCHOSOCIAL HISTORY: The patient is currently disabled. He is currently living with his family. LIST OF CURRENT MEDICATIONS: Includes Celexa 20 mg daily, aspirin, Crestor, Desyrel 50 mg daily, Flomax, Lovenox, thiamine. The patient is on Neurontin, Protonix, Topamax, Toprol. VITAL SIGNS: Temperature is 98.3, pulse rate is 74, blood pressure is 172/92, respirations 18, oxygen sat is 99%. REVIEW OF SYSTEMS: GENERAL: The patient is alert, verbal, feeling depressed, in his room eating. He said that he is getting anxious. The patient states he wants to go to the detox unit. He also claims he is depressed. When asked about suicidal ideation , he said he has transient suicidal thoughts. SKIN: No pruritus, no diaphoresis. HEENT: No headache, no dizziness. NECK: Supple. RESPIRATORY: No dyspnea. CARDIOVASCULAR: No chest pain, no palpitation. GASTROINTESTINAL: None. The patient was seen eating. no abdominal pain, no nausea, no vomiting. EXTREMITIES: Has mild tremors. The patient is moving extremities. NEUROLOGIC: Alert and oriented x 3. GENITOURINARY: No urinary problems. MENTAL STATUS EXAMINATION: Elderly male who looks stated age, about 5 feet 6 inches and weighs 180 pounds. The patient is chronically depressed, anxious, somatic. Affect is reactive. Speech spontaneous. Thought process coherent. Thought content: No active suicidal or homicidal ideation, but claims he is depressed and gets fleeting thoughts of suicidal ideation. The patient states he wants to go to [facility] for detox as well as for treatment of depression. Attention and memory seem to be fair. Insight and judgment limited. Impulse control is fair at this time. IMPRESSION: History of alcohol dependence as well as history of chronic depression. PLAN AND RECOMMENDATION: The patient seen, meds reviewed. Continue present management. The patient may benefit from being transferred to [facility] for detox and treatment of depression. The patient was seen by Dr. Muller and patient is awaiting medical clearance cardiac jones. Once patient is cleared cardiac jones, patient can be transferred to [facility] for treatment of depression as well as possible detox. Continue treatment plan as outlined. Thank you very much for the consult. Scott Acosta MD cc: [phone] TT: 04/29/2017 18:41:04 Confirmation # [id number] Dictation # [id number] MEDRANO
[2017-04-29] MEDS ORDERED: Enoxaparin 40 mg Syringe SC SCH (19:34)
[2017-04-29] MEDS: Multivitamin (MVI) 10 ML, Thiamine 100 MG, Folic Acid 1 MG in Sodium Chloride 0.9% 1,00... IV SCH (21:16)
--- NOTE | 2017-04-29 23:37 | CP.PCM.PN ---
Subjective - Date & Time of Evaluation Date of Evaluation: 04/29/17 Time of Evaluation: 09:55 - Subjective Subjective: Pt seen and evaluated, he is still anxious, shaking, No further chest pain, observe for delirium tremens. No [facility], with history of coronary artery disease needs an echo and stress test as outpatient.pt is for detox Objective - Vital Signs/Intake and Output Vital Signs (last 24 hours): Temp Pulse Resp BP Pulse Ox 98.2 F 68 20 129/68 98 04/29/17 15:48 04/29/17 15:48 04/29/17 15:48 04/29/17 15:48 04/29/17 15:48 Intake and Output: 04/29/17 04/30/17 18:59 06:59 Intake Total 1240 Balance 1240 - Medications Medications: Current Medications Aspirin (Aspirin Chewable) 81 mg PO DAILY [facility] Last Admin: 04/29/17 09:28 Dose: 81 mg Chlordiazepoxide (Librium) 25 mg PO Q4H PRN PRN Reason: Anxiety Last Admin: 04/29/17 19:25 Dose: 25 mg Citalopram Hydrobromide (Celexa) 20 mg PO DAILY [facility] Last Admin: 04/29/17 09:29 Dose: 20 mg Enoxaparin Sodium (Lovenox) 40 mg SC DAILY [facility] Last Admin: 04/29/17 09:28 Dose: 40 mg Ferric Sodium Gluconate Complex (Ferrlecit) 125 mg IVPB DAILY [facility] Stop: 05/07/17 10:01 Last Admin: 04/29/17 09:29 Dose: 125 mg Gabapentin (Neurontin) 300 mg PO BID [facility] Last Admin: 04/29/17 18:55 Dose: 300 mg Multivitamins/Vitamin C 10 ml/Thiamine HCl 100 mg/ Folic Acid 1 mg/ Sodium Chloride 1,011.2 mls @ 80 mls/hr IV DAILY@2030 [facility] Last Admin: 04/29/17 21:16 Dose: 80 mls/hr Metoprolol Succinate (Toprol Xl) 25 mg PO DAILY [facility] Last Admin: 04/29/17 09:31 Dose: 25 mg Pantoprazole Sodium (Protonix Ec Tab) 40 mg PO DAILY [facility] Last Admin: 04/29/17 09:28 Dose: 40 mg Rosuvastatin Calcium (Crestor) 5 mg PO DAILY [facility] Last Admin: 04/29/17 09:29 Dose: 5 mg Tamsulosin HCl (Flomax) 0.4 mg PO DAILY [facility] Last Admin: 04/29/17 09:29 Dose: 0.4 mg Topiramate (Topamax) 100 mg PO BID [facility] Last Admin: 04/29/17 18:55 Dose: 100 mg Trazodone HCl (Desyrel) 50 mg PO DAILY [facility] Last Admin: 04/29/17 09:29 Dose: 50 mg - Labs Labs: PT 12.3 SECONDS (9.7-12.2) H 04/28/17 12:45 INR 1.1 04/28/17 12:45 APTT 37 SECONDS (21-34) H 04/28/17 12:45 - Constitutional Appears: Toxic, No Acute Distress - Head Exam Head Exam: ATRAUMATIC, NORMAL INSPECTION, NORMOCEPHALIC - Eye Exam Eye Exam: Conjunctival injection - Respiratory Exam Respiratory Exam: Clear to Ausculation Bilateral, NORMAL BREATHING PATTERN - Cardiovascular Exam Cardiovascular Exam: Tachycardia, +S1, +S2 - GI/Abdominal Exam GI & Abdominal Exam: Soft, Normal Bowel Sounds. absent: Tenderness Assessment and Plan (1) Alcohol withdrawal Assessment & Plan: detox on Status: Acute (2) Chest discomfort Status: Acute (3) Abdominal pain Status: Acute
[2017-04-30] MEDS: Ferric Sodium Gluconat Complex 62.5 mg/5 ml Vial IVPB SCH (10:04)
[2017-04-30] MEDS: Enoxaparin 40 mg Syringe SC SCH (10:04)
[2017-04-30] MEDS: Pantoprazole 40 mg EC Tab PO SCH (10:04)
[2017-04-30] MEDS: Metoprolol Succinate 25 mg XL Tab PO SCH (10:05)
--- NOTE | 2017-04-30 10:22 | PN ---
DATE: 04/30/2017 SUBJECTIVE: The patient is seen in his room. He is resting, has very mild tremors, but still contin ues to complain of depression, has very mild chest pain. The patient is still willing to go to [address] [place] [address] for treatment of depression and anxiety. He is only taking Librium 25 q. 4 p.r.n., not exhibiting significant signs or symptoms of withdrawal when seen. MEDICATIONS: The patient is currently taking the following meds. The patient is on Celexa 20 mg yakov ly, as well as on Topamax 100 mg b.i.d. and trazodone 50 mg at bedtime. VITAL SIGNS: Temperature is 98.4. Pulse is 80, blood pressure 134/67, respirations 20, oxygen sats 96%. REVIEW OF SYSTEMS: GENERAL: The patient is alert, verbal, conversing well when seen in his bed, resting. He said he dumont s very mild chest pain. SKIN: No pruritus. HEENT: No headache or dizziness. NECK: Supple. RESPIRATORY: No dyspnea, no chest pain. CARDIOVASCULAR: No palpitation. GASTROINTESTINAL: The patient is eating. EXTREMITIES: Very mild tremors. NEUROLOGIC: Alert, oriented x 3. GENITOURINARY: No dysuria. MENTAL STATUS EXAMINATION: Elderly male who looks stated age, chronically depressed. Affect is reac tive. Speech is spontaneous. Thought process is coherent. Thought content: The patient states he wants to go up to [facility] for treatment of depression and anxiety, alcohol dependence. No paranoia. No suicidal or homicidal ideation. Attention and memory seem to be fair. Insight and judgment limit ed. Impulse control is fair at this time. IMPRESSION: History of recurrent depression, anxiety, alcohol dependence. PLAN AND RECOMMENDATIONS: The patient is seen, meds reviewed. The patient is awaiting evaluation of Dr. Lazo who is the attending on [facility] prior to acceptance for treatment of depression and anxiety to [facility]. Continue present psych meds. The patient also, according to the nurse, is medically carine ared at this time. He was admitted here for chest pain, but seems to be medically stable at this isai e cardiac jones. Scott Acosta MD cc: [phone] TT: 04/30/2017 10:21:25 Confirmation # [id number] Dictation # [id number] jn
[2017-04-30 11:43] LABS: BASO # 0.1 K/uL (0.0-0.2); BASO % 1.2 % (0.0-2.0); EOS # 0.1 K/uL (0.0-0.7); HEMATOCRIT 30.3 % (35.0-51.0); LYMPH # 0.9 K/uL (1.0-4.3); LYMPH % 14.4 % (20.0-40.0); MEAN CELL VOLUME 74.8 fL (80.0-94.0); MEAN CORPUSCULAR HEMOGLOBIN 22.7 pg (27.0-31.0); MEAN CORPUSCULAR HGB CONC 30.3 g/dL (33.0-37.0); MEAN PLATELET VOLUME 8.9 fL (7.2-11.7); MONO # 0.8 K/uL (0.0-0.8); NRBC % 0.1 % (0.0-2.0); WHITE BLOOD COUNT 6.6 K/uL (4.8-10.8)
[2017-04-30 12:03] LABS: CHLORIDE 104 mmol/L (98-107); SODIUM 136 mmol/L (132-148)
[2017-04-30 12:05] LABS: GFR AFRICAN-AMERICAN > 60
[2017-04-30 12:06] LABS: BLOOD UREA NITROGEN 7 mg/dL (9-20); CALCIUM 8.4 mg/dl (8.6-10.4); CARBON DIOXIDE 23 mmol/L (22-30); GLUCOSE,RANDOM 123 mg/dL (75-110)
--- NOTE | 2017-04-30 12:13 | PCM.PSYCH ---
Initial Psychiatric Evaluation - Initial Psychiatric Evaluation Type of Admission: Voluntary Legal Status: Capacity Chief Complaint (in patient's own words): "I feel okay." History of Present Illness and Precipitating Events: Patient was seen and evaluated, chart reviewed and discussed with the nurse. The patient is a 61yo male who was admitted for chest pain but complains of depression, suicidal ideation, and alcohol withdrawal. The patient states that he is and lives alone in an apartment in [place]. He states that he has 6 children: 39yo, 29yo, 27yo, 27yo, 17yo, 16yo. He states that he is disabled and receives disability checks. He says that he has been depressed for at least 10 years and that he has been hospitalized for psych twice in [place] and here but doesn't remember when. He states that he has been to detox twice in [place] and here but doesn't remember when. He complains of anxiety but denies H/I, S/I, or hallucinations. He says that he drinks 1 quart of rum a day and smokes a pack of cigarettes for the past 46 years. He states that his longest sobriety was 3 months. He is experiencing withdrawal symptoms of shaking and diarrhea and states he was given Ativan 2 days ago which helped his symptoms. He states that he hasn't been sleeping well. He denies having any allergies and has a past medical history of HTN and diabetes. The patient appears to have a depressed mood but appropriate affect. He is organized in his thoughts and speech and appears to be kempt. PMH: HTN, Asthma/COPD, Hypercholesterolemia, CAD, BPH Current Medications: Active Medications Generic Name Dose Route Start Last Admin Trade Name Yusufq PRN Reason Stop Dose Admin Aspirin 81 mg 04/29/17 10:00 04/30/17 10:04 Aspirin Chewable PO 81 mg DAILY [facility]IE Administration Chlordiazepoxide 25 mg 04/29/17 18:59 04/29/17 19:25 Librium PO 25 mg Q4H PRN Administration Anxiety Citalopram Hydrobromide 20 mg 04/29/17 10:00 04/30/17 10:04 Celexa PO 20 mg DAILY [facility] Administration Enoxaparin Sodium 40 mg 04/28/17 19:45 04/30/17 10:04 Lovenox SC 40 mg DAILY [facility] Administration Ferric Sodium Gluconate Complex 125 mg 04/29/17 10:00 04/30/17 10:04 Ferrlecit IVPB 05/07/17 10:01 125 mg DAILY [facility] Administration Gabapentin 300 mg 04/29/17 10:00 04/30/17 10:04 Neurontin PO 300 mg BID ME[facility] Administration Multivitamins/Vitamin C 10 ml/ 1,011.2 mls @ 80 mls/hr 04/28/17 20:30 21:16 Thiamine HCl 100 mg/ Folic IV 80 mls/hr Acid 1 mg/ Sodium Chloride DAILY@2030 [facility] Administration Metoprolol Succinate 25 mg 04/29/17 10:00 04/30/17 10:05 Toprol Xl PO 25 mg DAILY [facility] Administration Pantoprazole Sodium 40 mg 04/29/17 10:00 04/30/17 10:04 Protonix Ec Tab PO 40 mg DAILY [facility] Administration Rosuvastatin Calcium 5 mg 04/29/17 10:00 04/30/17 10:04 Crestor PO 5 mg DAILY [facility] Administration Tamsulosin HCl 0.4 mg 04/29/17 10:00 04/30/17 10:03 Flomax PO 0.4 mg DAILY [facility] Administration Topiramate 100 mg 04/29/17 10:00 04/30/17 10:03 Topamax PO 100 mg BID EM[facility]IE Administration Trazodone HCl 50 mg 04/29/17 10:00 04/30/17 10:04 Desyrel PO 50 mg DAILY [facility] Administration Past Psychiatric History - Past Psychiatric History Previous Treatment History: Inpatient Pertinent Medical Hx (Current Medical&Sleep Prob, Allergies): Allergies Allergy/AdvReac Type Severity Reaction Status Date / Time No Known Allergies Allergy Verified 04/28/17 11:42 Aspirin [Aspirin Chewable] 81 mg PO DAILY 04/28/17 Cilostazol [Pletal] 100 mg PO BID 04/28/17 Citalopram [celeXA] 20 mg PO DAILY 04/28/17 Gabapentin 300 mg PO BID 04/28/17 Metoprolol Succinate [Toprol XL] 25 mg PO DAILY 04/28/17 Pantoprazole Sodium [Protonix] 40 mg PO DAILY 04/28/17 Pravastatin Sodium 40 mg PO DAILY 04/28/17 Tamsulosin [Flomax] 0.4 mg PO DAILY 04/28/17 Topiramate [Topamax] 100 mg PO BID 04/28/17 traZODone [trazODONE HYDROCHLORIDE] 50 mg PO DAILY 04/28/17 Review of Systems - Review of Systems All systems: reviewed and no additional remarkable complaints except - Psychiatric Psychiatric: Anxiety, Depression, Hopelessness, Suicidal Ideation. absent: Hallucinations, Homicidal Ideation Mental Status Examination - Personal Presentation Personal Presentation: Looks stated age - Affect Affect: Constricted - Motor Activity Motor Activity: Calm - Reliability in Providing Information Reliability in Providing Information: Other (Poor memory) - Speech Speech: Organized - Mood Mood: Depressed - Formal Thought Process Formal Thought Process: No Impairment - Obsessions/Compulsions Obsessions: No Compulsions: No - Cognitive Functions Orientation: Person, Place, Situation, Time Sensorium: Alert Attention/Concentration: Attentive Abstract Thinking: [place] Estimate of Intelligence: Below average Judgement: Imparied, as evidence by: Poor judgement, Imparied, as evidence by: Lack of insight into illness Memory: Recent impaired, as evidence by: Inability to recall events of the day, Remote impaired as evidenced by: Inability to recall sig life events - Risk Risk: Suicidal, Diminished functioning - Strength & Assets Inventory Strength & Assets Inventory: Cooperative - Limitations Limitations: Living alone DSM 5 DX - DSM 5 DSM 5 Diagnosis: Major depressive disorder recurrent severe without psychotic features Alcohol use disorder severe Alcohol Withdrawal - Recommended/Plan of Treatment Treatment Recommendations and Plan of Treatment: Major depressive disorder recurrent severe without psychotic features CBT Psychoeducation Supportive therapy, group therapy, individual therapy Celexa 20 mg by mouth daily Neurontin 300 mg by mouth 3 times a day Trazodone 50 mg by mouth daily at bedtime Topamax 100 mg by mouth twice a day Alcohol use disorder severe CBT Psychoeducation Supportive therapy, individual therapy Use ND for abstinence Alcohol withdrawal uncomplicated CBT Psychoeducation Supportive therapy, individual therapy Librium when necessary - Smoking Cessation Smoking Cessation Initiated: No
[2017-04-30] MEDS ORDERED: Potassium Chloride 20 mEq ER Tab PO STA (13:43)
--- NOTE | 2017-04-30 15:23 | CP.PCM.PN ---
Subjective - Date & Time of Evaluation Date of Evaluation: 04/30/17 Time of Evaluation: 12:00 - Subjective Subjective: Was seen by psychiatry, major depression and suicidal ideations, on supportive care, uncomplicated delirium tremens, no MS and no further chest pain. For stress test as outpatient when stable. Objective - Vital Signs/Intake and Output Vital Signs (last 24 hours): Temp Pulse Resp BP Pulse Ox 98.4 F 80 20 134/67 96 04/30/17 07:00 04/30/17 07:00 04/30/17 07:00 04/30/17 07:00 04/30/17 07:00 Intake and Output: 04/30/17 04/30/17 06:59 18:59 Intake Total 1140 1100 Output Total 1550 Balance -410 1100 - Medications Medications: Current Medications Aspirin (Aspirin Chewable) 81 mg PO DAILY [facility] Last Admin: 04/30/17 10:04 Dose: 81 mg Chlordiazepoxide (Librium) 25 mg PO Q4H PRN PRN Reason: Anxiety Last Admin: 04/29/17 19:25 Dose: 25 mg Citalopram Hydrobromide (Celexa) 20 mg PO DAILY [facility] Last Admin: 04/30/17 10:04 Dose: 20 mg Enoxaparin Sodium (Lovenox) 40 mg SC DAILY [facility] Last Admin: 04/30/17 10:04 Dose: 40 mg Ferric Sodium Gluconate Complex (Ferrlecit) 125 mg IVPB DAILY [facility] Stop: 05/07/17 10:01 Last Admin: 04/30/17 10:04 Dose: 125 mg Gabapentin (Neurontin) 300 mg PO BID [facility] Last Admin: 04/30/17 10:04 Dose: 300 mg Multivitamins/Vitamin C 10 ml/Thiamine HCl 100 mg/ Folic Acid 1 mg/ Sodium Chloride 1,011.2 mls @ 80 mls/hr IV DAILY@2030 [facility] Last Admin: 04/29/17 21:16 Dose: 80 mls/hr Metoprolol Succinate (Toprol Xl) 25 mg PO DAILY [facility] Last Admin: 04/30/17 10:05 Dose: 25 mg Pantoprazole Sodium (Protonix Ec Tab) 40 mg PO DAILY [facility] Last Admin: 04/30/17 10:04 Dose: 40 mg Potassium Chloride (K-Dur 20 Meq Er Tab) 20 meq PO ONCE ONE Stop: 05/01/17 18:01 Rosuvastatin Calcium (Crestor) 5 mg PO DAILY [facility] Last Admin: 04/30/17 10:04 Dose: 5 mg Tamsulosin HCl (Flomax) 0.4 mg PO DAILY [facility] Last Admin: 04/30/17 10:03 Dose: 0.4 mg Topiramate (Topamax) 100 mg PO BID [facility] Last Admin: 04/30/17 10:03 Dose: 100 mg Trazodone HCl (Desyrel) 50 mg PO DAILY [facility] Last Admin: 04/30/17 10:04 Dose: 50 mg - Labs Labs: 04/30/17 11:27 04/30/17 11:27 PT 12.3 SECONDS (9.7-12.2) H 04/28/17 12:45 INR 1.1 04/28/17 12:45 APTT 37 SECONDS (21-34) H 04/28/17 12:45 - Constitutional Appears: Non-toxic - Head Exam Head Exam: ATRAUMATIC - Eye Exam Eye Exam: EOMI - ENT Exam ENT Exam: Mucous Membranes Moist - Neck Exam Neck Exam: absent: Lymphadenopathy, Thyromegaly - Respiratory Exam Respiratory Exam: Clear to Ausculation Bilateral. absent: Rales - Cardiovascular Exam Cardiovascular Exam: REGULAR RHYTHM. absent: Murmur - GI/Abdominal Exam GI & Abdominal Exam: Normal Bowel Sounds. absent: Organomegaly - Rectal Exam Rectal Exam: Deferred - Extremities Exam Extremities Exam: Normal Capillary Refill. absent: Calf Tenderness - Neurological Exam Neurological Exam: Alert, Oriented x3 - Psychiatric Exam Psychiatric exam: Depressed - Skin Skin Exam: Dry Assessment and Plan (1) Chest discomfort Status: Acute (2) CAD (coronary artery disease) of artery bypass graft Status: Chronic (3) Diabetes Status: Chronic (4) Hypertension Status: Chronic
--- NOTE | 2017-04-30 16:10 | CP.PCM.PN ---
Subjective - Date & Time of Evaluation Date of Evaluation: 04/30/17 Time of Evaluation: 12:00 - Subjective Subjective: pt seen today, denies any chest pain, sob, dizziness, palptations mild tremors noted no overnight events reported by RN Objective - Vital Signs/Intake and Output Vital Signs (last 24 hours): Temp Pulse Resp BP Pulse Ox 98.4 F 80 20 134/67 96 04/30/17 07:00 04/30/17 07:00 04/30/17 07:00 04/30/17 07:00 04/30/17 07:00 Intake and Output: 04/30/17 04/30/17 06:59 18:59 Intake Total 1140 1100 Output Total 1550 Balance -410 1100 - Medications Medications: Current Medications Aspirin (Aspirin Chewable) 81 mg PO DAILY [facility] Last Admin: 04/30/17 10:04 Dose: 81 mg Chlordiazepoxide (Librium) 25 mg PO Q4H PRN PRN Reason: Anxiety Last Admin: 04/29/17 19:25 Dose: 25 mg Citalopram Hydrobromide (Celexa) 20 mg PO DAILY [facility] Last Admin: 04/30/17 10:04 Dose: 20 mg Enoxaparin Sodium (Lovenox) 40 mg SC DAILY [facility] Last Admin: 04/30/17 10:04 Dose: 40 mg Ferric Sodium Gluconate Complex (Ferrlecit) 125 mg IVPB DAILY [facility] Stop: 05/07/17 10:01 Last Admin: 04/30/17 10:04 Dose: 125 mg Gabapentin (Neurontin) 300 mg PO BID [facility] Last Admin: 04/30/17 10:04 Dose: 300 mg Multivitamins/Vitamin C 10 ml/Thiamine HCl 100 mg/ Folic Acid 1 mg/ Sodium Chloride 1,011.2 mls @ 80 mls/hr IV DAILY@2030 [facility] Last Admin: 04/29/17 21:16 Dose: 80 mls/hr Metoprolol Succinate (Toprol Xl) 25 mg PO DAILY [facility] Last Admin: 04/30/17 10:05 Dose: 25 mg Pantoprazole Sodium (Protonix Ec Tab) 40 mg PO DAILY [facility] Last Admin: 04/30/17 10:04 Dose: 40 mg Potassium Chloride (K-Dur 20 Meq Er Tab) 20 meq PO ONCE ONE Stop: 05/01/17 18:01 Rosuvastatin Calcium (Crestor) 5 mg PO DAILY [facility] Last Admin: 04/30/17 10:04 Dose: 5 mg Tamsulosin HCl (Flomax) 0.4 mg PO DAILY [facility] Last Admin: 04/30/17 10:03 Dose: 0.4 mg Topiramate (Topamax) 100 mg PO BID [facility] Last Admin: 04/30/17 10:03 Dose: 100 mg Trazodone HCl (Desyrel) 50 mg PO DAILY [facility] Last Admin: 04/30/17 10:04 Dose: 50 mg - Labs Labs: 04/30/17 11:27 04/30/17 11:27 PT 12.3 SECONDS (9.7-12.2) H 04/28/17 12:45 INR 1.1 04/28/17 12:45 APTT 37 SECONDS (21-34) H 04/28/17 12:45 - Constitutional Appears: Non-toxic, No Acute Distress - Respiratory Exam Respiratory Exam: Clear to Ausculation Bilateral, NORMAL BREATHING PATTERN - Cardiovascular Exam Cardiovascular Exam: REGULAR RHYTHM - Neurological Exam Neurological Exam: Alert, Awake, Oriented x3 - Psychiatric Exam Psychiatric exam: Depressed Assessment and Plan - Assessment and Plan (Free Text) Assessment: 61 yr old male admitted for chest pain, alcohol withdrawal, depression troponin x [address] Muller, no plan stress test out patient seen by ryanne today recommends to transfer to psych seen by Dr. corona d/w with Dr. Corona pt can be transferred to psych, floor D/W Dr. Vasquez, cleared for transfer to psyche floor Plan discussed with patient
[2017-04-30] MEDS ORDERED: Potassium Chloride 20 mEq ER Tab PO ONE (18:00)
[2017-04-30] MEDS: Multivitamin (MVI) 10 ML, Thiamine 100 MG, Folic Acid 1 MG in Sodium Chloride 0.9% 1,00... IV SCH (21:30)
--- NOTE | 2017-04-30 23:35 | CP.PCM.PN ---
Subjective - Date & Time of Evaluation Date of Evaluation: 04/30/17 Time of Evaluation: 09:45 - Subjective Subjective: pt seen and examined, getting better, shaking improved Objective - Vital Signs/Intake and Output Vital Signs (last 24 hours): Temp Pulse Resp BP Pulse Ox 98.8 F 73 20 104/65 97 04/30/17 15:38 04/30/17 15:38 04/30/17 15:38 04/30/17 15:38 04/30/17 15:38 - Medications Medications: Current Medications Aspirin (Aspirin Chewable) 81 mg PO DAILY [facility] Last Admin: 04/30/17 10:04 Dose: 81 mg Chlordiazepoxide (Librium) 25 mg PO Q4H PRN PRN Reason: Anxiety Last Admin: 04/29/17 19:25 Dose: 25 mg Citalopram Hydrobromide (Celexa) 20 mg PO DAILY [facility] Last Admin: 04/30/17 10:04 Dose: 20 mg Enoxaparin Sodium (Lovenox) 40 mg SC DAILY [facility] Last Admin: 04/30/17 10:04 Dose: 40 mg Ferric Sodium Gluconate Complex (Ferrlecit) 125 mg IVPB DAILY [facility] Stop: 05/07/17 10:01 Last Admin: 04/30/17 10:04 Dose: 125 mg Gabapentin (Neurontin) 300 mg PO BID [facility] Last Admin: 04/30/17 17:20 Dose: 300 mg Multivitamins/Vitamin C 10 ml/Thiamine HCl 100 mg/ Folic Acid 1 mg/ Sodium Chloride 1,011.2 mls @ 80 mls/hr IV DAILY@2030 [facility] Last Admin: 04/30/17 21:30 Dose: Not Given Metoprolol Succinate (Toprol Xl) 25 mg PO DAILY [facility] Last Admin: 04/30/17 10:05 Dose: 25 mg Pantoprazole Sodium (Protonix Ec Tab) 40 mg PO DAILY [facility] Last Admin: 04/30/17 10:04 Dose: 40 mg Rosuvastatin Calcium (Crestor) 5 mg PO DAILY [facility] Last Admin: 04/30/17 10:04 Dose: 5 mg Tamsulosin HCl (Flomax) 0.4 mg PO DAILY [facility] Last Admin: 04/30/17 10:03 Dose: 0.4 mg Topiramate (Topamax) 100 mg PO BID [facility] Last Admin: 06/15/17 17:20 Dose: 100 mg Trazodone HCl (Desyrel) 50 mg PO DAILY [facility] Last Admin: 04/30/17 10:04 Dose: 50 mg - Labs Labs: PT 12.3 SECONDS (9.7-12.2) H 04/28/17 12:45 INR 1.1 04/28/17 12:45 APTT 37 SECONDS (21-34) H 04/28/17 12:45 Assessment and Plan (1) Alcohol withdrawal Status: Acute (2) Chest discomfort Status: Acute (3) Abdominal pain Status: Acute
[2017-05-01 07:25] VITALS: O2SAT 99
--- NOTE | 2017-05-01 09:50 | PCM.PYCHPN ---
Psychiatric Progress Note - Psychiatric Progress Note Patient seen today, length of contact: 15 min Patient Chief Complaint: "I feel depressed." Problems Identified/Issues Discussed: Patient seen and evaluated, chart reviewed and discussed with the nurse. Patient was just transferred from medical floor. As per the staff, patient still appears isolated, depressed and withdrawn. Patient still reports depressed mood and reports at times feelings of hopelessness or helplessness. He reports withdrawal symptoms including shakes, headache, anxiety and sweating. He denies any auditory or visual hallucinations or any psychotic symptoms. He is taking medication and denies any side effects. Supportive therapy and psychoeducation were given. Medication Change: No Medical Record Reviewed: Yes Mental Status Examination - Cognitive Function Orientation: Person, Place, Situation, Time Memory: Intact Attention: WNL Concentration: Poor Association: WNL Fund of Knowledge: Poor - Mood Mood: Depressed, Anxious - Affect Affect: Constricted - Formal Thought Process Formal Thought Process: No Impairment - Suicidal Ideation Suicidal Ideation: No - Homicidal Ideation Homicidal Ideation: No Goal/Treatment Plan - Goal/Treatment Plan Need for Continued Stay: Discharge may exacerbated symptoms, Severe functional impairment Progress Toward Problem(s) and Goals/Treatment Plan: Major depressive disorder recurrent severe without psychotic features CBT Psychoeducation Supportive therapy, group therapy, individual therapy Celexa 20 mg by mouth daily Neurontin 300 mg by mouth 3 times a day Trazodone 50 mg by mouth daily at bedtime Topamax 100 mg by mouth twice a day Alcohol use disorder severe CBT Psychoeducation Supportive therapy, individual therapy Use [place] for abstinence Alcohol withdrawal uncomplicated CBT Psychoeducation Supportive therapy, individual therapy Librium when necessary - Smoking Cessation Smoking Cessation Initiated: No
[2017-05-01] MEDS: Metoprolol Succinate 25 mg XL Tab PO SCH (11:16)
[2017-05-01] MEDS ORDERED: Potassium Chloride 20 mEq ER Tab PO ONE (18:00)
[2017-05-02] MEDS: Metoprolol Succinate 25 mg XL Tab PO SCH (09:27)
[2017-05-02] MEDS: Pantoprazole 40 mg EC Tab PO SCH (09:27)
--- NOTE | 2017-05-02 09:31 | PCM.PYCHPN ---
Psychiatric Progress Note - Psychiatric Progress Note Patient seen today, length of contact: 15 min Patient Chief Complaint: "I need a walker" Problems Identified/Issues Discussed: The pt is seen, chart reviewed, case discussed with staff. The pt is compliant with medications and reports no side-effects. Symptoms are improving but needs more time to stabilize. After care discussed, support and psychoeducation given. Medication Change: No Medical Record Reviewed: Yes Mental Status Examination - Cognitive Function Orientation: Person, Place, Situation, Time Memory: Intact Attention: WNL Concentration: Poor Association: WNL Fund of Knowledge: Poor - Mood Mood: Depressed, Anxious - Affect Affect: Constricted - Speech Speech: Appropriate - Formal Thought Process Formal Thought Process: No Impairment - Suicidal Ideation Suicidal Ideation: No - Homicidal Ideation Homicidal Ideation: No Goal/Treatment Plan - Goal/Treatment Plan Need for Continued Stay: Discharge may exacerbated symptoms, Severe functional impairment Progress Toward Problem(s) and Goals/Treatment Plan: Continue medications Support and psychoeducation daily Attend groups and activities daily After care planning by SW PT consult
[2017-05-03] MEDS: Pantoprazole 40 mg EC Tab PO SCH (09:06)
[2017-05-03] MEDS: Metoprolol Succinate 25 mg XL Tab PO SCH ×2 (09:06→09:07)
--- NOTE | 2017-05-03 23:44 | PCM.PYCHPN ---
Psychiatric Progress Note - Psychiatric Progress Note Patient seen today, length of contact: 16 min Patient Chief Complaint: "I am not well" Problems Identified/Issues Discussed: The pt is seen, chart reviewed, case discussed with staff. Support given, CBT and [place] used briefly No new symptoms reported, improving slowly and needs some more time He c/o his room mate. Looks odd and isolated No SEs from medications, risks discussed. After care discussed Medication Change: No Medical Record Reviewed: Yes Mental Status Examination - Cognitive Function Orientation: Person, Place, Situation, Time Memory: Intact Attention: WNL Concentration: Poor Association: WNL Fund of Knowledge: Poor - Mood Mood: Depressed, Anxious - Affect Affect: Constricted - Speech Speech: Appropriate - Formal Thought Process Formal Thought Process: No Impairment - Suicidal Ideation Suicidal Ideation: No - Homicidal Ideation Homicidal Ideation: No Goal/Treatment Plan - Goal/Treatment Plan Need for Continued Stay: Discharge may exacerbated symptoms, Severe functional impairment Progress Toward Problem(s) and Goals/Treatment Plan: Continue medications Support and psychoeducation daily Attend groups and activities daily After care planning by SW PT consult
[2017-05-04] MEDS: Pantoprazole 40 mg EC Tab PO SCH (09:52)
[2017-05-04] MEDS: Metoprolol Succinate 25 mg XL Tab PO SCH (09:52)
--- NOTE | 2017-05-04 12:24 | PCM.PYCHPN ---
Psychiatric Progress Note - Psychiatric Progress Note Patient seen today, length of contact: 16 min Patient Chief Complaint: "I m feeling depressed." Problems Identified/Issues Discussed: Patient seen and evaluated, chart reviewed and discussed with the nurse. Patient appears little better but still reports depressed mood and reports at times feelings of hopelessness or helplessness. He reports improvement in the withdrawal symptoms. He denies any auditory or visual hallucinations or any psychotic symptoms. He is taking medication and denies any side effects. Supportive therapy and psychoeducation were given. Medication Change: Yes (increase neurontin) Medical Record Reviewed: Yes Mental Status Examination - Cognitive Function Orientation: Person, Place, Situation, Time Memory: Intact Attention: WNL Concentration: Poor Association: WNL Fund of Knowledge: Poor - Mood Mood: Depressed, Anxious - Affect Affect: Constricted - Speech Speech: Appropriate - Formal Thought Process Formal Thought Process: No Impairment - Suicidal Ideation Suicidal Ideation: No - Homicidal Ideation Homicidal Ideation: No Goal/Treatment Plan - Goal/Treatment Plan Need for Continued Stay: Discharge may exacerbated symptoms, Severe functional impairment Progress Toward Problem(s) and Goals/Treatment Plan: Major depressive disorder recurrent severe without psychotic features CBT Psychoeducation Supportive therapy, group therapy, individual therapy Celexa 20 mg by mouth daily Neurontin 300 mg by mouth 3 times a day Trazodone 50 mg by mouth daily at bedtime Topamax 100 mg by mouth twice a day Alcohol use disorder severe CBT Psychoeducation Supportive therapy, individual therapy Use [place] for abstinence Alcohol withdrawal uncomplicated CBT Psychoeducation Supportive therapy, individual therapy Librium when necessary - Smoking Cessation Smoking Cessation Initiated: No
--- NOTE | 2017-05-05 07:59 | CARD ---
APPROVED REPORT EKG Measurement Heart [id number] <Conclusion> Normal sinus rhythm Possible Left atrial enlargement Nonspecific ST and T wave abnormality Prolonged QT Abnormal ECG
[2017-05-05] MEDS: Pantoprazole 40 mg EC Tab PO SCH (09:28)
[2017-05-05] MEDS: Metoprolol Succinate 25 mg XL Tab PO SCH (09:52)
--- NOTE | 2017-05-05 11:22 | PCM.PYCHPN ---
Psychiatric Progress Note - Psychiatric Progress Note Patient seen today, length of contact: 16 min Patient Chief Complaint: "I feel depressed." Problems Identified/Issues Discussed: Patient seen and evaluated, chart reviewed and discussed with the nurse. As per the staff, patient remained isolated and withdrawn. he still appears depressed and reports at times feelings of hopelessness or helplessness. He reports improvement in the withdrawal symptoms. He is taking medication and denies any side effects. He wants to go to inpatient rehabilitation. Spoke with the long term care social worker. Supportive therapy and psychoeducation were given. Medication Change: No Medical Record Reviewed: Yes Mental Status Examination - Cognitive Function Orientation: Person, Place, Situation, Time Memory: Intact Attention: WNL Concentration: Poor Association: WNL Fund of Knowledge: Poor - Mood Mood: Depressed, Anxious - Affect Affect: Constricted - Speech Speech: Appropriate - Formal Thought Process Formal Thought Process: No Impairment - Suicidal Ideation Suicidal Ideation: No - Homicidal Ideation Homicidal Ideation: No Goal/Treatment Plan - Goal/Treatment Plan Need for Continued Stay: Discharge may exacerbated symptoms, Severe functional impairment Progress Toward Problem(s) and Goals/Treatment Plan: Major depressive disorder recurrent severe without psychotic features CBT Psychoeducation Supportive therapy, group therapy, individual therapy Celexa 20 mg by mouth daily Neurontin 300 mg by mouth 3 times a day Trazodone 50 mg by mouth daily at bedtime Topamax 100 mg by mouth twice a day Alcohol use disorder severe CBT Psychoeducation Supportive therapy, individual therapy Use [place] for abstinence Alcohol withdrawal uncomplicated CBT Psychoeducation Supportive therapy, individual therapy Librium when necessary
--- NOTE | 2017-05-06 09:06 | CARD ---
APPROVED REPORT EKG Measurement Heart [id number] <Conclusion> Normal sinus rhythm Cannot rule out Anteroseptal infarct, age undetermined T wave abnormality, consider lateral ischemia Abnormal ECG
--- NOTE | 2017-05-06 09:07 | CARD ---
APPROVED REPORT EKG Measurement Heart [id number] <Conclusion> Normal sinus rhythm Possible Left atrial enlargement T wave abnormality, consider anterolateral ischemia Prolonged QT Abnormal ECG
[2017-05-06] MEDS: Metoprolol Succinate 25 mg XL Tab PO SCH (10:24)
[2017-05-06] MEDS: Pantoprazole 40 mg EC Tab PO SCH (10:25)
--- NOTE | 2017-05-06 14:35 | PCM.PYCHPN ---
Psychiatric Progress Note - Psychiatric Progress Note Patient seen today, length of contact: 16 min Patient Chief Complaint: "I m feeling depressed." Problems Identified/Issues Discussed: Patient seen and evaluated, chart reviewed and discussed with the nurse. Patient was seen by the activity therapist. Patient will start using walker now. He remained remained isolated and withdrawn. However he reports some improvement in his mood and feelings of hopelessness or helplessness. He is taking medication and denies any side effects. He is in the process of stabilization, no acute complaints. He wants to go to inpatient rehabilitation. Supportive therapy and psychoeducation were given. Medication Change: Yes (increase celexa) Medical Record Reviewed: Yes Mental Status Examination - Cognitive Function Orientation: Person, Place, Situation, Time Memory: Intact Attention: WNL Concentration: Poor Association: WNL Fund of Knowledge: Poor - Mood Mood: Depressed, Anxious - Affect Affect: Constricted - Speech Speech: Appropriate - Formal Thought Process Formal Thought Process: No Impairment - Suicidal Ideation Suicidal Ideation: No - Homicidal Ideation Homicidal Ideation: No Goal/Treatment Plan - Goal/Treatment Plan Need for Continued Stay: Discharge may exacerbated symptoms, Severe functional impairment Progress Toward Problem(s) and Goals/Treatment Plan: Major depressive disorder recurrent severe without psychotic features CBT Psychoeducation Supportive therapy, group therapy, individual therapy Celexa 40 mg by mouth daily Neurontin 300 mg by mouth 3 times a day Trazodone 50 mg by mouth daily at bedtime Topamax 100 mg by mouth twice a day Alcohol use disorder severe CBT Psychoeducation Supportive therapy, individual therapy Use [place] for abstinence Alcohol withdrawal uncomplicated CBT Psychoeducation Supportive therapy, individual therapy Librium when necessary - Smoking Cessation Smoking Cessation Initiated: No
[2017-05-06] MEDS ORDERED: Aluminum Hydroxide/Magnesium Hydroxide Susp (30 mL) PO ONE (16:46)
[2017-05-07] MEDS: Metoprolol Succinate 25 mg XL Tab PO SCH (09:35)
[2017-05-07] MEDS: Pantoprazole 40 mg EC Tab PO SCH (09:35)
--- NOTE | 2017-05-07 11:17 | PCM.PYCHPN ---
Psychiatric Progress Note - Psychiatric Progress Note Patient seen today, length of contact: 16 min Patient Chief Complaint: "I m feeling better." Problems Identified/Issues Discussed: Patient seen and evaluated, chart reviewed and discussed with the nurse. Patient reports improvement in his mood, however still reports poor sleep And remained isolated and withdrawn. Patient started using walker. He is in the process of stabilization. He wants to go to inpatient rehabilitation. He is taking medication and denies any side effects. He is rejected from [facility], now psych social worker is trying for [facility] Supportive therapy and psychoeducation were given. Medication Change: Yes (increase trazodone) Medical Record Reviewed: Yes Mental Status Examination - Cognitive Function Orientation: Person, Place, Situation, Time Memory: Intact Attention: WNL Concentration: Poor Association: WNL Fund of Knowledge: Poor - Mood Mood: Depressed, Anxious - Affect Affect: Constricted - Speech Speech: Appropriate - Formal Thought Process Formal Thought Process: No Impairment - Suicidal Ideation Suicidal Ideation: No - Homicidal Ideation Homicidal Ideation: No Goal/Treatment Plan - Goal/Treatment Plan Need for Continued Stay: Discharge may exacerbated symptoms, Severe functional impairment Progress Toward Problem(s) and Goals/Treatment Plan: Major depressive disorder recurrent severe without psychotic features CBT Psychoeducation Supportive therapy, group therapy, individual therapy Celexa 40 mg by mouth daily Neurontin 300 mg by mouth 3 times a day Trazodone 100 mg by mouth daily at bedtime Topamax 100 mg by mouth twice a day Alcohol use disorder severe CBT Psychoeducation Supportive therapy, individual therapy Use [place] for abstinence Alcohol withdrawal uncomplicated CBT Psychoeducation Supportive therapy, individual therapy Librium when necessary - Smoking Cessation Smoking Cessation Initiated: No
[2017-05-07 16:09] VITALS: PULSE 69
[2017-05-08 08:15] VITALS: BP 120/68; RESP 19; TEMP 98.1
[2017-05-08] MEDS: Pantoprazole 40 mg EC Tab PO SCH (09:33)
[2017-05-08] MEDS: Metoprolol Succinate 25 mg XL Tab PO SCH (09:33)
--- NOTE | 2017-05-08 09:48 | PCM.PYCHDC ---
Mental Status Examination - Mental Status Examination Orientation: Person, Place, Situation, Time Memory: Impaired Mood: Anxious Affect: Constricted Speech: Appropriate Attention: WNL Concentration: Poor Association: WNL Fund of Knowledge: WNL Formal Thought Process: No Impairment Suicidal Ideation: No Current Homicidal Ideation?: No Discharge Summary - Discharge Note Reason for Hospitalization: Transferred from medicine for depression, suicidal ideation, alcohol withdrawal Consultations:: List each consultation separately and include: 1. Reason for request. 2. Findings. 3. Follow-up Summary of Hospital Course include:: 1. Description of specific treatment plan utilized for patients during their course of treatmen. 2. Summarize the time- course for resolution of acute symptoms and/or regressed behaviors. 3. Describe issues identified and worked on during hospitalization. 4. Describe medication utilized. 5. Describe medical problems identified and treated. 6. Reassessment of suicide risk Summary of Hospital Course: He is seen today, case discussed, chart reviewed. Covering for Dr. Lazo The pt was admitted and started on treatment with psychotherapy, support, psychoeducation and medications. NV and CBT used. The pt attended groups and activities, as well as milieu therapy. All the risks and benefits of medications are discussed and the patient understood and agreed. After care discussed with the patient. He is referred to [facility] The patient improved with the treatment provided and discharged as planned. - Final Diagnosis (DSM 5) Condition upon Discharge: GOOD DSM 5: Major depressive disorder recurrent severe without psychotic features Alcohol use disorder severe Alcohol Withdrawal Disposition: HOME/ ROUTINE Follow-up Treatment Plan: Continue below medications after discharge. Follow after care plan as discussed above. Use relapse prevention skills. Return to ER or call 911 if suicidal, homicidal or symptoms relapse. Stay away from stress, alcohol and drugs. Use relaxation techniques. See primary doctor once a year and get labs. Prescriptions/Medication Reconciliation: Aspirin [Aspirin Chewable] 81 mg PO DAILY #30 Citalopram [celEXA] 40 mg PO DAILY #30 tab Gabapentin [Neurontin] 300 mg PO TID #90 cap Metoprolol Succinate [Toprol XL] 25 mg PO DAILY #30 tab Pantoprazole [Protonix EC Tab] 40 mg PO DAILY #30 ect Rosuvastatin Calcium [Crestor] 5 mg PO DAILY #30 tab Tamsulosin [Flomax] 0.4 mg PO DAILY #30 cap Topiramate [Topamax] 100 mg PO BID #60 tab traZODone [Desyrel] 100 mg PO HS PRN #30 tab PRN Reason: Insomnia - Smoking Cessation Smoking Cessation Medication prescribed: No - Antipsychotic Medications Pt discharged on 2 or more routine antipsychotic medications: No
== END 2017-05-08 15:00 | disposition home or self-care (01) | DRG 885 ==
LOC: C.ER 11:28 → C.9E 14:00 → C.6T 14:27 → C.5T 04-29 13:07 → C.6T 04-29 13:10 → C.5E 04-30 22:43 → OBSVTOIN 04-30 22:45
PROVIDERS: ADMIT Psychiatry & Neurology Psychiatry; ATTEND Psychiatry & Neurology Psychiatry
DX: F33.2 Major depressive disorder, recurrent severe without psychotic features (principal); F10.231 Alcohol dependence with withdrawal delirium; I11.0 Hypertensive heart disease with heart failure; I50.9 Heart failure, unspecified; E11.9 Type 2 diabetes mellitus without complications; E03.9 Hypothyroidism, unspecified; E78.2 Mixed hyperlipidemia; F17.210 Nicotine dependence, cigarettes, uncomplicated; F41.9 Anxiety disorder, unspecified; G47.30 Sleep apnea, unspecified; I25.10 Atherosclerotic heart disease of native coronary artery without angina pectoris; J44.9 Chronic obstructive pulmonary disease, unspecified; N40.0 Benign prostatic hyperplasia without lower urinary tract symptoms; Z87.01 Personal history of pneumonia (recurrent); Z91.19 Patient's noncompliance with other medical treatment and regimen; Z95.5 Presence of coronary angioplasty implant and graft; G47.00 Insomnia, unspecified

== ENCOUNTER 2017-05-20 11:33 | Emergency (ER) | payer OTHER ==
[2017-05-20 11:33] VITALS: BMI 29.8
--- NOTE | 2017-05-20 13:20 | C.PDOC ---
History Of Present Illness 61-year-old male, presents to the emergency department with complaints of alcohol intoxication. Patient states he is suicidal but has no plan. Patient with Hx of suicide attempt in past with overdose on medication. Denies nausea/ vomiting, fevers, chills, chest pain, shortness of breath or any other associated symptoms. No other complaints at this time. Time Seen by Provider: 05/20/17 12:59 Chief Complaint (Nursing): Psychiatric Evaluation History Per: Patient History/Exam Limitations: no limitations Onset/Duration Of Symptoms: Days Past Medical History Reviewed: Historical Data, Nursing Documentation, Vital Signs Vital Signs: Last Vital Signs Temp 98.8 F 05/20/17 18:38 Pulse 75 05/20/17 18:38 Resp 20 05/20/17 18:38 BP 131/66 05/20/17 18:38 Pulse Ox 97 05/20/17 18:38 - Medical History PMH: Anemia (iron deficiency), Anxiety, Arthritis, Asthma, Benign Prostatic Hyperplasia, Bipolar Disorder, Bronchitis, CAD, CHF, COPD, Depression, Diabetes , Diverticulitis, Emphysema, Hepatitis (PATIENT STATED HE HAS HEPATITIS BUT COULD NOT RECALL WHICH ONE), HTN, Hypercholesterolemia, Hyperlipidemia, Hypothyroidism, Migraine, Pancreatitis, Pneumonia, Seizures, Sleep Apnea Denies: HIV, Chronic Kidney Disease, Sexually Transmitted Disease Surgical History: CABG ((quadruple bypass) 2010), Coronary Stent - [facility] Procedures ALCOHOL DETOXIFICATION (03/12/15) CORONAR ARTERIOGR-2 CATH (07/24/15) CORONARY ARTERY STENT INSERTION [id number] (07/24/15) DETOXIFICATION SERVICES FOR SUBSTANCE ABUSE TREATMENT (12/06/16) ESOPHAGOGASTRODUODENOSCOPY [EGD] W/CLOSED BIOPSY (05/21/13) GROUP PSYCHOTHERAPY (11/19/16) INDIVID PSYCHOTHERAP NEC (11/04/14) INDIVIDUAL PSYCHOTHERAPY, BEHAVIORAL (01/17/16) INDIVIDUAL PSYCHOTHERAPY, COGNITIVE-BEHAVIORAL (11/19/16) INDIVIDUAL PSYCHOTHERAPY, SUPPORTIVE (10/02/16) INSERTION OF ONE VASCULAR STENT (07/24/15) IRRIGATION OF EAR (05/23/15) LEFT HEART CARDIAC CATH (07/19/15) LT HEART ANGIOCARDIOGRAM (07/19/15) OTHER GROUP THERAPY (11/04/14) PACKED CELL TRANSFUSION (05/21/13) PERCUTANEOUS TRANSLUMINAL CORONARY ANGIOPLASTY [PTCA] (07/24/15) PROCEDURE ON SINGLE VESSEL (07/24/15) PSYCHIAT DRUG THERAP NEC (11/04/14) RT HEART ANGIOCARDIOGRAM (07/22/15) RT HEART CARDIAC CATH (07/22/15) VACCINATION NEC (09/28/14) Family History: States: No Known Family Hx - Social History Hx Tobacco Use: Yes Hx Alcohol Use: Yes Hx Substance Use: Yes - Immunization History Hx Tetanus Toxoid Vaccination: Yes Hx Influenza Vaccination: Yes Hx Pneumococcal Vaccination: Yes Review Of Systems Except As Marked, All Systems Reviewed And Found Negative. Constitutional: Negative for: Fever Cardiovascular: Negative for: Chest Pain, Palpitations Respiratory: Negative for: Shortness of Breath Gastrointestinal: Negative for: Nausea, Vomiting Psych: Negative for: Suicidal ideation Physical Exam - Physical Exam Appears: Non-toxic, No Acute Distress Skin: Warm, Dry, No Rash Head: Atraumatic, Normacephalic Eye(s): bilateral: Normal Inspection, PERRL Nose: Normal Oral Mucosa: Moist Lips: Normal Appearing Neck: Normal ROM Respiratory: No Accessory Muscle Use Extremity: Normal ROM Neurological/Psych: Oriented x3, Normal Speech ED Course And Treatment - Laboratory Results Result Diagrams: 05/20/17 13:23 05/20/17 13:23 Lab Interpretation: No Acute Changes O2 Sat by Pulse Oximetry: 97 Pulse Ox Interpretation: Normal Progress Note: Patient was evaluated by crisis and is cleeared for discharge. He has an appointment at an outpatient substance abuse program tomorrow. He is not currently suicidal. Reevaluation Time: 19:31 Reassessment Condition: Improved Disposition Counseled Patient/Family Regarding: Studies Performed, Diagnosis, Need For Followup - Disposition Referrals: Dennys Vasquez MD [Staff Provider] - [facility] [Outside] Disposition: HOME/ ROUTINE Disposition Time: 19:32 Condition: IMPROVED Instructions: Abuse of Alcohol (ED), Depression (ED) - Clinical Impression Clinical Impression: Alcohol abuse, Depression - Scribe Statement The provider has reviewed the documentation as recorded by the Scribe (Iain Santizo) All medical record entries made by the Scribe were at my direction and personally dictated by me. I have reviewed the chart and agree that the record accurately reflects my personal performance of the history, physical exam, medical decision making, and the department course for this patient. I have also personally directed, reviewed, and agree with the discharge instructions and disposition.
[2017-05-20 13:30] LABS: BASO # 0.1 K/uL (0.0-0.2); BASO % 2.2 % (0.0-2.0); EOS # 0.2 K/uL (0.0-0.7); EOS % 3.2 % (0.0-4.0); HEMOGLOBIN 8.4 g/dL (12.0-18.0); LYMPH # 1.7 K/uL (1.0-4.3); LYMPH % 28.5 % (20.0-40.0); MEAN CELL VOLUME 74.3 fL (80.0-94.0); MEAN CORPUSCULAR HEMOGLOBIN 22.2 pg (27.0-31.0); MEAN CORPUSCULAR HGB CONC 29.8 g/dL (33.0-37.0); MEAN PLATELET VOLUME 8.3 fL (7.2-11.7); MONO # 0.7 K/uL (0.0-0.8); MONO % 10.7 % (0.0-10.0); NEUT # 3.4 K/uL (1.8-7.0); NEUT % 55.4 % (50.0-75.0); RBC 3.77 Mil/uL (4.40-5.90); RED CELL DISTRIBUTION WIDTH 18.4 % (11.5-14.5); WHITE BLOOD COUNT 6.1 K/uL (4.8-10.8)
[2017-05-20 13:34] LABS: URINE BILIRUBIN NEGATIVE (NEGATIVE); URINE BLOOD NEGATIVE (NEGATIVE); URINE CLARITY Clear (Clear); URINE COLOR Straw (YELLOW); URINE GLUCOSE (UA) NORMAL (Normal); URINE LEUKOCYTE ESTERASE NEG Leu/uL (Negative); URINE NITRATE NEGATIVE (NEGATIVE); URINE PROTEIN NEGATIVE (NEGATIVE); URINE UROBILINOGEN NORMAL mg/dL (0.2-1.0)
[2017-05-20 13:36] LABS: ALBUMIN 3.8 g/dL (3.5-5.0)
[2017-05-20 13:39] LABS: AST/SGOT 29 U/L (17-59); GFR AFRICAN-AMERICAN > 60; GFR NON-AFRICAN AMERICAN > 60
[2017-05-20 13:40] LABS: ALB/GLOB RATIO 1.2 (1.0-2.1); ALT/SGPT 35 U/L (21-72); BARBITURATES, UR NEGATIVE (NEGATIVE); BENZODIAZEPINES, UR NEGATIVE (NEGATIVE); BLOOD UREA NITROGEN 9 mg/dL (9-20); CALCIUM 8.2 mg/dl (8.6-10.4)
[2017-05-20 13:44] LABS: OPIATES, UR NEGATIVE (NEGATIVE); PHENCYCLIDINE, UR NEGATIVE (NEGATIVE)
[2017-05-20 13:46] LABS: SALICYLATE < 1.0 mg/dL 1
[2017-05-20 13:47] LABS: ACETAMINOPHEN < 10.0 ug/mL (10.0-30.0)
[2017-05-20 19:41] VITALS: BP 152/77; PULSE 81; RESP 18; TEMP 98.7; O2SAT 99
== END 2017-05-20 19:40 | disposition home or self-care (01) ==
LOC: C.ER 11:33
DX: F10.120 Alcohol abuse with intoxication, uncomplicated (principal); Y90.8 Blood alcohol level of 240 mg/100 ml or more; F32.89 Other specified depressive episodes
CPT/HCPCS: 80053; 81001; 82948; 85025; 99285; G0480

== ENCOUNTER 2017-06-01 19:20 | Inpatient (IN) | payer OTHER ==
[2017-06-01 19:41] VITALS: BMI 27.4
[2017-06-01] MEDS ORDERED: Sodium Chloride 0.9% 1,000 ML IV ONE ×3 (19:59→23:34)
--- NOTE | 2017-06-01 20:14 | C.PDOC ---
History Of Present Illness 61 y/o male, whose past medical history includes alcohol abuse, HTN, hyperlipidemia, presents to the emergency department for evaluation of rectal bleeding, and abdominal pain. Notes having 3 episodes of bright red blood per rectum. Pt states he was admitted at another hospital for GI bleed, but is unsure of the work up. Otherwise, denies any nausea, vomiting, hematemesis, lightheadedness, dizziness, or any other complaints at this time. Time Seen by Provider: 06/01/17 19:50 Chief Complaint (Nursing): Abdominal Pain History Per: Patient History/Exam Limitations: no limitations Onset/Duration Of Symptoms: Days Current Symptoms Are (Timing): Still Present Location Of Pain/Discomfort: Diffuse Radiation Of Pain To:: None Quality Of Discomfort: "Pain" Associated Symptoms: denies: Fever, Chills, Nausea, Vomiting, Loss Of Appetite, Back Pain, Chest Pain, Urinary Symptoms Exacerbating Factors: None Alleviating Factors: None Recent travel outside of the [place]: No Additional History Per: Patient Past Medical History Reviewed: Historical Data, Nursing Documentation, Vital Signs Vital Signs: Last Vital Signs Temp 97.9 F 06/01/17 19:43 Pulse 66 06/01/17 19:43 Resp 20 06/01/17 19:43 BP 116/39 L 06/01/17 19:43 Pulse Ox 98 06/01/17 23:09 - Medical History PMH: Anemia (iron deficiency), Anxiety, Arthritis, Asthma, Benign Prostatic Hyperplasia, Bipolar Disorder, Bronchitis, CAD, CHF, COPD, Depression, Diabetes , Diverticulitis, Emphysema, Hepatitis (PATIENT STATED HE HAS HEPATITIS BUT COULD NOT RECALL WHICH ONE), HTN, Hypercholesterolemia, Hyperlipidemia, Hypothyroidism, Migraine, Pancreatitis, Pneumonia, Seizures, Sleep Apnea Denies: HIV, Chronic Kidney Disease, Sexually Transmitted Disease Surgical History: CABG ((quadruple bypass) 2010), Coronary Stent - [facility] Procedures ALCOHOL DETOXIFICATION (03/12/15) CORONAR ARTERIOGR-2 CATH (07/24/15) CORONARY ARTERY STENT INSERTION [id number] (07/24/15) DETOXIFICATION SERVICES FOR SUBSTANCE ABUSE TREATMENT (12/06/16) ESOPHAGOGASTRODUODENOSCOPY [EGD] W/CLOSED BIOPSY (05/21/13) GROUP PSYCHOTHERAPY (11/19/16) INDIVID PSYCHOTHERAP NEC (11/04/14) INDIVIDUAL PSYCHOTHERAPY, BEHAVIORAL (01/17/16) INDIVIDUAL PSYCHOTHERAPY, COGNITIVE-BEHAVIORAL (11/19/16) INDIVIDUAL PSYCHOTHERAPY, SUPPORTIVE (10/02/16) INSERTION OF ONE VASCULAR STENT (07/24/15) IRRIGATION OF EAR (05/23/15) LEFT HEART CARDIAC CATH (07/19/15) LT HEART ANGIOCARDIOGRAM (07/19/15) OTHER GROUP THERAPY (11/04/14) PACKED CELL TRANSFUSION (05/21/13) PERCUTANEOUS TRANSLUMINAL CORONARY ANGIOPLASTY [PTCA] (07/24/15) PROCEDURE ON SINGLE VESSEL (07/24/15) PSYCHIAT DRUG THERAP NEC (11/04/14) RT HEART ANGIOCARDIOGRAM (07/22/15) RT HEART CARDIAC CATH (07/22/15) VACCINATION NEC (09/28/14) Family History: States: Unknown Family Hx - Social History Hx Tobacco Use: Yes Hx Alcohol Use: Yes Hx Substance Use: Yes - Immunization History Hx Tetanus Toxoid Vaccination: Yes Hx Influenza Vaccination: Yes Hx Pneumococcal Vaccination: Yes Review Of Systems Except As Marked, All Systems Reviewed And Found Negative. Constitutional: Negative for: Fever, Chills Cardiovascular: Negative for: Chest Pain, Palpitations Respiratory: Negative for: Shortness of Breath Gastrointestinal: Positive for: Abdominal Pain, Other (rectal bleeding). Negative for: Nausea, Vomiting, Hematemesis Genitourinary: Negative for: Dysuria, Frequency, Hematuria Musculoskeletal: Negative for: Back Pain Skin: Negative for: Rash Physical Exam - Physical Exam Appears: Non-toxic, No Acute Distress Skin: Normal Color, Warm, Dry Head: Atraumatic, Normacephalic Eye(s): bilateral: Normal Inspection Neck: Normal ROM, Supple Chest: Symmetrical Cardiovascular: Rhythm Regular, No Murmur Respiratory: Normal Breath Sounds, No Rales, No Rhonchi, No Wheezing Gastrointestinal/Abdominal: Soft, Tenderness (mild non-focal), No Guarding, No Rebound Rectal: No Hemorrhoids (no bleeding hemorrhoids), Other (brown stool) Extremity: Normal ROM Neurological/Psych: Oriented x3, Normal Speech, Normal Cognition ED Course And Treatment - Laboratory Results Result Diagrams: 06/01/17 20:14 06/01/17 20:14 O2 Sat by Pulse Oximetry: 98 Pulse Ox Interpretation: Normal - CT Scan/US Abdominal CT Other Rad Studies (CT/US): Read By Radiologist, Radiology Report Reviewed CT/US Interpretation: CT Scan. . . ABD PELVIS IV CONTRAST ONLY Exam Date: 06/01/17. . This imaging exam was performed at [facility]. EXAM: CT Abdomen and Pelvis With Intravenous Contrast. . CLINICAL HISTORY: 61 years old, male; Signs and symptoms; Other: Rectal bleed; Additional info: Abd pain gi bleed. . TECHNIQUE: Axial computed tomography images of the abdomen and pelvis with intravenous. contrast. This CT exam was performed using one or more of the following dose. reduction techniques: automated exposure control, adjustment of the mA and/or. kV according to patient size, and/or use of iterative reconstruction technique. Coronal and sagittal reformatted images were created and reviewed. . CONTRAST: 100 mL of visipaque 320 administered intravenously. . COMPARISON: No relevant prior studies available. . FINDINGS: Lower thorax: Mild cardiomegaly. Coronary artery calcifications. Mild. atelectasis/scarring. . ABDOMEN: Liver: Too small to characterize lesion. Gallbladder and bile ducts: No calcified stones. No ductal dilation. Pancreas: No ductal dilation. No mass. Spleen: No splenomegaly. Adrenals: No mass. Kidneys and ureters: Mild stranding about kidneys, nonspecific. Too small. to characterize lesion within LEFT kidney. 2.7 x 2.5 x 2.1cm lesion within. RIGHT kidney, indeterminate by CT criteria. No hydronephrosis. Stomach and bowel: Apparent mild mural thickening of jejunal loops. No. associated inflammatory stranding. Segmental areas of underdistention of. colon. No obstruction. Appendix: Normal caliber. No inflammation. Appendicolith. . PELVIS: Bladder: Unremarkable. Reproductive: Unremarkable as visualized. . ABDOMEN and PELVIS : Intraperitoneal space: No significant fluid collection. No free air. Bones /joints: Mild degenerative changes of spine. No acute fracture. Soft tissues : Unremarkable. Vasculature: Moderate to extensive atherosclerotic disease. No aneurysm. Lymph nodes: No pathologically enlarged lymph nodes. . IMPRESSION: 1. Possible mild enteritis. Clinical correlation is needed. 2. Mild perinephric stranding, nonspecific. Correlate with urinalysis. 3. Kidney lesion, indeterminate. Recommend nonemergent ultrasound or MRI. 4. Incidental/non-acute findings are described above. Progress Note: Blood work, urinalysis, EKG ordered and reviewed. Patient was given IV fluids. Medical Decision Making Medical Decision Making: r/o gi bleed. brown stool guiac pos- labs imaging pending ek g nsr 74 non specific t wave changes, normal intervals. 1100: pt reassessed: guiac pos, h/h baseline discussed with dr vasquez requests admission for gi bleed. Disposition - Disposition Disposition: HOSPITALIZED Disposition Time: 23:08 Condition: STABLE - Clinical Impression Clinical Impression: GI bleed - Scribe Statement The provider has reviewed the documentation as recorded by the Scribe Jose C Dudley All medical record entries made by the Scribe were at my direction and personally dictated by me. I have reviewed the chart and agree that the record accurately reflects my personal performance of the history, physical exam, medical decision making, and the department course for this patient. I have also personally directed, reviewed, and agree with the discharge instructions and disposition. Decision To Admit - Pt Status Changed To: Hospital Disposition Of: Inpatient - Admit Certification Admit to Inpatient:: After my assessment, the patient will require hospitalization for at least two midnights. This is because of the severity of symptoms shown, intensity of services needed, and/or the medical risk in this patient being treated as an outpatient. - InPatient: Physician Admission Certification:: pt with gi bleed - . Bed Request Type: Telemetry Admitting Physician: Dennys Vasquez Patient Diagnosis: GI bleed
[2017-06-01 20:24] LABS: BASO # 0.1 K/uL (0.0-0.2); EOS # 0.2 K/uL (0.0-0.7); MEAN PLATELET VOLUME 8.8 fL (7.2-11.7)
[2017-06-01 20:28] LABS: BASO % 1.8 % (0.0-2.0); EOS % 2.4 % (0.0-4.0); HEMATOCRIT 33.1 % (35.0-51.0); LYMPH % 27.1 % (20.0-40.0); MEAN CORPUSCULAR HEMOGLOBIN 22.7 pg (27.0-31.0); MEAN CORPUSCULAR HGB CONC 29.4 g/dL (33.0-37.0); MONO % 13.5 % (0.0-10.0); NRBC % 0.2 % (0.0-2.0); RED CELL DISTRIBUTION WIDTH 22.4 % (11.5-14.5); WHITE BLOOD COUNT 7.3 K/uL (4.8-10.8)
[2017-06-01 20:29] LABS: MEAN CELL VOLUME 77.4 fL (80.0-94.0)
[2017-06-01 20:30] LABS: CHLORIDE 99 mmol/L (98-107)
[2017-06-01 20:31] LABS: POTASSIUM 2.9 mmol/L (3.6-5.2); SODIUM 140 mmol/L (132-148)
[2017-06-01 20:33] LABS: ALB/GLOB RATIO 1.2 (1.0-2.1); AST/SGOT 23 U/L (17-59); BILIRUBIN,TOTAL 0.5 mg/dL (0.2-1.3); BLOOD UREA NITROGEN 10 mg/dL (9-20); CARBON DIOXIDE 19 mmol/L (22-30); GFR AFRICAN-AMERICAN > 60; TOTAL PROTEIN 7.6 g/dL (6.3-8.3)
[2017-06-01 20:34] LABS: ALKALINE PHOSPHATASE 67 U/L (38-126); ALT/SGPT 23 U/L (21-72); CALCIUM 8.5 mg/dl (8.6-10.4); GLUCOSE,RANDOM 96 mg/dL (75-110)
[2017-06-01] MEDS ORDERED: Potassium Chloride 20 mEq ER Tab PO STA (20:35)
[2017-06-01] MEDS ORDERED: Potassium Chloride 20 mEq ER Tab PO ONE (21:02)
[2017-06-01] MEDS ORDERED: Iodixanol 320 MG/ML 100 ML BOTTLE IV ONE (21:14)
[2017-06-01 22:11] LABS: RBC URINE < 1 /hpf (0-3); URINE BILIRUBIN NEGATIVE (NEGATIVE); URINE BLOOD NEGATIVE (NEGATIVE); URINE COLOR Yellow (YELLOW); URINE GLUCOSE (UA) NORMAL (Normal); URINE KETONE NEGATIVE (NEGATIVE); URINE LEUKOCYTE ESTERASE NEG Leu/uL (Negative); URINE PROTEIN NEGATIVE (NEGATIVE); URINE UROBILINOGEN NORMAL mg/dL (0.2-1.0); WBC URINE < 1 /hpf (0-5)
--- NOTE | 2017-06-01 23:04 | CT ---
EXAM: CT Abdomen and Pelvis With Intravenous Contrast CLINICAL HISTORY: 61 years old, male; Signs and symptoms; Other: Rectal bleed; Additional info: Abd pain gi bleed TECHNIQUE: Axial computed tomography images of the abdomen and pelvis with intravenous contrast. This CT exam was performed using one or more of the following dose reduction techniques: automated exposure control, adjustment of the mA and/or kV according to patient size, and/or use of iterative reconstruction technique. Coronal and sagittal reformatted images were created and reviewed. CONTRAST: 100 mL of visipaque 320 administered intravenously. COMPARISON: No relevant prior studies available. FINDINGS: Lower thorax: Mild cardiomegaly. Coronary artery calcifications. Mild atelectasis/scarring. ABDOMEN: Liver: Too small to characterize lesion. Gallbladder and bile ducts: No calcified stones. No ductal dilation. Pancreas: No ductal dilation. No mass. Spleen: No splenomegaly. Adrenals: No mass. Kidneys and ureters: Mild stranding about kidneys, nonspecific. Too small to characterize lesion within LEFT kidney. 2.7 x 2.5 x 2.1cm lesion within RIGHT kidney, indeterminate by CT criteria. No hydronephrosis. Stomach and bowel: Apparent mild mural thickening of jejunal loops. No associated inflammatory stranding. Segmental areas of underdistention of colon. No obstruction. Appendix: Normal caliber. No inflammation. Appendicolith. PELVIS: Bladder: Unremarkable. Reproductive: Unremarkable as visualized. ABDOMEN and PELVIS: Intraperitoneal space: No significant fluid collection. No free air. Bones/joints: Mild degenerative changes of spine. No acute fracture. Soft tissues: Unremarkable. Vasculature: Moderate to extensive atherosclerotic disease. No aneurysm. Lymph nodes: No pathologically enlarged lymph nodes. IMPRESSION: 1. Possible mild enteritis. Clinical correlation is needed. 2. Mild perinephric stranding, nonspecific. Correlate with urinalysis. 3. Kidney lesion, indeterminate. Recommend nonemergent ultrasound or MRI. 4. Incidental/non-acute findings are described above.
--- NOTE | 2017-06-02 00:12 | CP.PCM.HP ---
History of Present Illness - History of Present Illness History of Present Illness: 61 y/o male, whose past medical history includes alcohol abuse, HTN, hyperlipidemia, presents to the emergency department for evaluation of rectal bleeding, and abdominal pain. Notes having 3 episodes of bright red blood per rectum. Pt states he was admitted at another hospital for GI bleed, but is unsure of the work up. Otherwise, denies any nausea, vomiting, hematemesis, lightheadedness, dizziness, or any other complaints at this time. Present on Admission - Present on Admission Any Indicators Present on Admission: Yes Past Patient History - Infectious Disease Hx of Infectious Diseases: None - Past Medical History & Family History Past Medical History?: Yes - Past Social History Smoking Status: Heavy Smoker > 10 Cigarettes Daily - CARDIAC Hx Congestive Heart Failure: Yes Hx Hypercholesterolemia: Yes Hx Hypertension: Yes - PULMONARY Hx Asthma: Yes Hx Bronchitis: Yes Hx Chronic Obstructive Pulmonary Disease (COPD): Yes Hx Emphysema: Yes Hx Pneumonia: Yes Hx Sleep Apnea: Yes - NEUROLOGICAL Hx Migraine: Yes Hx Seizures: Yes - HEENT Hx HEENT Problems: No - RENAL Hx Chronic Kidney Disease: No - ENDOCRINE/METABOLIC Hx Hypothyroidism: Yes - HEMATOLOGICAL/ONCOLOGICAL Hx Anemia: Yes (iron deficiency) Hx Human Immunodeficiency Virus (HIV): No - INTEGUMENTARY Hx Dermatological Problems: No - MUSCULOSKELETAL/RHEUMATOLOGICAL Hx Arthritis: Yes - GASTROINTESTINAL Hx Diverticulitis: Yes Hx Pancreatitis: Yes - GENITOURINARY/GYNECOLOGICAL Hx Sexually Transmitted Disorders: No - PSYCHIATRIC Hx Anxiety: Yes Hx Bipolar Disorder: Yes Hx Depression: Yes Hx Substance Use: Yes - SURGICAL HISTORY Hx Coronary Artery Bypass Graft: Yes ((quadruple bypass) 2010) Hx Coronary Stent: Yes - ANESTHESIA Hx Anesthesia: Yes Hx Anesthesia Reactions: No Hx Malignant Hyperthermia: No Meds Allergies/Adverse Reactions: Allergies Allergy/AdvReac Type Severity Reaction Status Date / Time No Known Allergies Allergy Verified 05/20/17 11:45 Results - Vital Signs Recent Vital Signs: Last Vital Signs Temp 97.9 F 06/01/17 19:43 Pulse 72 06/02/17 00:05 Resp 18 06/02/17 00:05 BP 118/60 06/02/17 00:05 Pulse Ox 98 06/02/17 00:05 - Labs Result Diagrams: 06/01/17 20:14 06/01/17 20:14
[2017-06-02 06:31] LABS: HEMATOCRIT 28.5 % (35.0-51.0); MEAN CELL VOLUME 76.2 fL (80.0-94.0); MEAN CORPUSCULAR HEMOGLOBIN 22.5 pg (27.0-31.0); MEAN CORPUSCULAR HGB CONC 29.5 g/dL (33.0-37.0); MEAN PLATELET VOLUME 8.9 fL (7.2-11.7); RED CELL DISTRIBUTION WIDTH 22.1 % (11.5-14.5)
[2017-06-02] MEDS: Folic Acid 1 MG, Thiamine 100 MG, Multivitamin (MVI) 10 ML in Dextrose 5% In Water 1,00... IV SCH ×3 (08:03→23:37)
[2017-06-02] MEDS: Dextrose 5%/0.45% NS 1,000 ML IV SCH ×2 (09:30→19:30)
--- NOTE | 2017-06-02 10:31 | US ---
PROCEDURE: Ultrasound of the Kidneys HISTORY: r/o lesion / questionable on CT COMPARISON: CT abdomen and pelvis with contrast performed 06/01/17 TECHNIQUE: Sonogram of the kidneys. FINDINGS: RIGHT KIDNEY: Measures: 10.3 x 5.9 x 6.2 cm. 2.9 x 2.1 x 3.1 cm septated/complex right upper pole renal lesion without evidence of vascularity consistent with cyst. No hydronephrosis or obstructing calculus identified. LEFT KIDNEY: Measures: 11.9 x 6.0 x 6.5 cm. No hydronephrosis or obstructing calculus identified. OTHER FINDINGS: Limited visualization of the under distended urinary bladder appears grossly unremarkable. IMPRESSION: 2.9 x 2.1 x 3.1 cm septated/complex right upper pole renal cyst.
[2017-06-02] MEDS: Metoprolol Succinate 25 mg XL Tab PO SCH (11:28)
[2017-06-02] MEDS: Ferric Sodium Gluconat Complex 62.5 mg/5 ml Vial IVPB SCH (11:30)
[2017-06-02 12:02] LABS: BASO # 0.1 K/uL (0.0-0.2); BASO % 2.1 % (0.0-2.0); EOS # 0.1 K/uL (0.0-0.7); EOS % 2.4 % (0.0-4.0); HEMATOCRIT 31.5 % (35.0-51.0); LYMPH % 28.1 % (20.0-40.0); MEAN CELL VOLUME 76.3 fL (80.0-94.0); MEAN CORPUSCULAR HEMOGLOBIN 22.5 pg (27.0-31.0); MEAN CORPUSCULAR HGB CONC 29.5 g/dL (33.0-37.0); MEAN PLATELET VOLUME 9.2 fL (7.2-11.7); MONO # 0.6 K/uL (0.0-0.8); MONO % 17.5 % (0.0-10.0); NRBC % 0.1 % (0.0-2.0); RED CELL DISTRIBUTION WIDTH 22.6 % (11.5-14.5); WHITE BLOOD COUNT 3.6 K/uL (4.8-10.8)
[2017-06-02 12:13] LABS: CHLORIDE 106 mmol/L (98-107); POTASSIUM 3.7 mmol/L (3.6-5.2); SODIUM 141 mmol/L (132-148)
[2017-06-02 12:15] LABS: BILIRUBIN,TOTAL 0.4 mg/dL (0.2-1.3); GFR AFRICAN-AMERICAN > 60
[2017-06-02 12:16] LABS: ALB/GLOB RATIO 1.1 (1.0-2.1); ALKALINE PHOSPHATASE 68 U/L (38-126); ALT/SGPT 27 U/L (21-72); AST/SGOT 26 U/L (17-59); BLOOD UREA NITROGEN 7 mg/dL (9-20); CALCIUM 8.3 mg/dl (8.6-10.4); CARBON DIOXIDE 24 mmol/L (22-30); GLUCOSE,RANDOM 90 mg/dL (75-110); TOTAL PROTEIN 6.9 g/dL (6.3-8.3)
--- NOTE | 2017-06-02 13:07 | CARD ---
APPROVED REPORT EKG Measurement Heart [id number] <Conclusion> Sinus rhythm with 1st degree AV block Rightward axis Nonspecific T wave abnormality Prolonged QT Abnormal ECG
--- NOTE | 2017-06-02 22:46 | CP.PCM.PN ---
Subjective - Date & Time of Evaluation Date of Evaluation: 06/02/17 Time of Evaluation: 09:10 - Subjective Subjective: Pt seen and examined, is weak and lethargic, undergoing GI bleed and has drop in Hb, is for blood transfusion, GI eval requested Objective - Vital Signs/Intake and Output Vital Signs (last 24 hours): Temp Pulse Resp BP Pulse Ox 98.2 F 68 20 163/79 H 100 06/02/17 16:00 06/02/17 18:00 06/02/17 16:00 06/02/17 16:00 06/02/17 16:00 - Medications Medications: Current Medications Chlordiazepoxide (Librium) 25 mg PO Q8 PRN PRN Reason: Anxiety Last Admin: 06/02/17 11:53 Dose: 25 mg Citalopram Hydrobromide (Celexa) 40 mg PO DAILY [facility] Last Admin: 06/02/17 11:29 Dose: 40 mg Famotidine (Pepcid) 20 mg IVP Q12 [facility] Last Admin: 06/02/17 21:46 Dose: 20 mg Ferric Sodium Gluconate Complex (Ferrlecit) 125 mg IVPB DAILY [facility] Stop: 06/10/17 10:01 Last Admin: 06/02/17 11:30 Dose: 125 mg Gabapentin (Neurontin) 300 mg PO TID [facility] Last Admin: 06/02/17 17:24 Dose: 300 mg Dextrose/Sodium Chloride (Dextrose 5%/0.45% Ns 1000 Ml) 1,000 mls @ 100 mls/hr IV .Q10H [facility] Last Admin: 06/02/17 19:30 Dose: Not Given Folic Acid 1 mg/ Thiamine HCl 100 mg/ Multivitamins/Vitamin C 10 ml/ Dextrose 1 ,011.2 mls @ 100 mls/hr IV Q24H [facility] Last Admin: 06/02/17 08:04 Dose: 100 mls/hr Metoprolol Succinate (Toprol Xl) 25 mg PO DAILY [facility] Last Admin: 06/02/17 11:28 Dose: 25 mg Rosuvastatin Calcium (Crestor) 5 mg PO HS [facility] Last Admin: 06/02/17 21:45 Dose: 5 mg Sucralfate (Carafate Tab) 1 gm PO QID [facility] Last Admin: 06/02/17 21:45 Dose: 1 gm Tamsulosin HCl (Flomax) 0.4 mg PO DAILY [facility] Last Admin: 06/02/17 11:28 Dose: 0.4 mg Topiramate (Topamax) 100 mg PO BID [facility] Last Admin: 06/02/17 17:24 Dose: 100 mg Trazodone HCl (Desyrel) 100 mg PO HS PRN PRN Reason: Insomnia - Labs Labs: 06/02/17 11:55 06/02/17 11:55 PT 11.5 SECONDS (9.7-12.2) 06/01/17 20:14 INR 1.0 06/01/17 20:14 APTT 41 SECONDS (21-34) H 06/01/17 20:14 - Constitutional Appears: No Acute Distress - Eye Exam Eye Exam: EOMI, Normal appearance, PERRL Pupil Exam: NORMAL ACCOMODATION, PERRL - Cardiovascular Exam Cardiovascular Exam: +S1, +S2 - GI/Abdominal Exam GI & Abdominal Exam: Soft, Normal Bowel Sounds. absent: Tenderness - Rectal Exam Rectal Exam: Deferred Assessment and Plan (1) GI bleed Status: Acute (2) Abdominal pain Status: Acute
[2017-06-03 08:02] LABS: BASO # 0.1 K/uL (0.0-0.2); BASO % 2.5 % (0.0-2.0); CHLORIDE 104 mmol/L (98-107); EOS # 0.2 K/uL (0.0-0.7); EOS % 3.8 % (0.0-4.0); HEMATOCRIT 30.9 % (35.0-51.0); LYMPH % 21.3 % (20.0-40.0); MEAN CELL VOLUME 76.1 fL (80.0-94.0); MEAN CORPUSCULAR HEMOGLOBIN 22.9 pg (27.0-31.0); MEAN CORPUSCULAR HGB CONC 30.1 g/dL (33.0-37.0); MEAN PLATELET VOLUME 8.8 fL (7.2-11.7); MONO # 0.9 K/uL (0.0-0.8); NRBC % 0.1 % (0.0-2.0); POTASSIUM 3.6 mmol/L (3.6-5.2); RED CELL DISTRIBUTION WIDTH 22.5 % (11.5-14.5); SODIUM 140 mmol/L (132-148); WHITE BLOOD COUNT 4.7 K/uL (4.8-10.8)
[2017-06-03 08:04] LABS: GFR AFRICAN-AMERICAN > 60
[2017-06-03 08:05] LABS: ALB/GLOB RATIO 1.1 (1.0-2.1); ALKALINE PHOSPHATASE 56 U/L (38-126); ALT/SGPT 26 U/L (21-72); AST/SGOT 22 U/L (17-59); BILIRUBIN,TOTAL 0.4 mg/dL (0.2-1.3); BLOOD UREA NITROGEN 6 mg/dL (9-20); CALCIUM 8.3 mg/dl (8.6-10.4); CARBON DIOXIDE 25 mmol/L (22-30); GLUCOSE,RANDOM 99 mg/dL (75-110); TOTAL PROTEIN 6.2 g/dL (6.3-8.3)
[2017-06-03] MEDS: Dextrose 5%/0.45% NS 1,000 ML IV SCH (10:03)
[2017-06-03] MEDS: Ferric Sodium Gluconat Complex 62.5 mg/5 ml Vial IVPB SCH (10:07)
[2017-06-03] MEDS: Metoprolol Succinate 25 mg XL Tab PO SCH (10:08)
[2017-06-03] MEDS ORDERED: Propofol 10 mg/ml Inj (20 ML) ONE (12:34)
[2017-06-03] MEDS ORDERED: Midazolam 2 MG/2 ML VIAL ONE (12:45)
[2017-06-03] MEDS ORDERED: Lidocaine Hydrochloride 5 ML INJ ONE (12:47)
[2017-06-03] MEDS ORDERED: Peg-Electrolyte Oral Soln 4L (Golytely) PO ONE (13:45)
--- NOTE | 2017-06-03 14:12 | CP.PCM.PN ---
Subjective - Date & Time of Evaluation Date of Evaluation: 06/03/17 Time of Evaluation: 20:00 - Subjective Subjective: Pt seen and examined, decresae bleeding, he is s/p endoscopy for colonscopy, pt is feeling better Objective - Vital Signs/Intake and Output Vital Signs (last 24 hours): Temp Pulse Resp BP Pulse Ox 97 F L 57 L 16 131/60 99 06/03/17 13:35 06/03/17 13:35 06/03/17 13:35 06/03/17 13:35 06/03/17 13:35 Intake and Output: 06/03/17 06/03/17 06:59 18:59 Intake Total 800 200 Output Total 700 Balance 100 200 - Medications Medications: Current Medications Bisacodyl (Dulcolax) 10 mg PO ONCE ONE Stop: 06/03/17 17:01 Chlordiazepoxide (Librium) 25 mg PO Q8 PRN PRN Reason: Anxiety Last Admin: 06/02/17 11:53 Dose: 25 mg Citalopram Hydrobromide (Celexa) 40 mg PO DAILY [facility] Last Admin: 06/03/17 10:08 Dose: 40 mg Famotidine (Pepcid) 20 mg IVP Q12 [facility] Last Admin: 06/03/17 10:13 Dose: 20 mg Ferric Sodium Gluconate Complex (Ferrlecit) 125 mg IVPB DAILY [facility] Stop: 06/10/17 10:01 Last Admin: 06/03/17 10:07 Dose: 125 mg Gabapentin (Neurontin) 300 mg PO TID [facility] Last Admin: 06/03/17 13:51 Dose: 300 mg Dextrose/Sodium Chloride (Dextrose 5%/0.45% Ns 1000 Ml) 1,000 mls @ 100 mls/hr IV .Q10H [facility] Last Admin: 06/03/17 10:03 Dose: 100 mls/hr Folic Acid 1 mg/ Thiamine HCl 100 mg/ Multivitamins/Vitamin C 10 ml/ Dextrose 1 ,011.2 mls @ 100 mls/hr IV Q24H [facility] Last Admin: 06/02/17 23:37 Dose: Not Given Metoprolol Succinate (Toprol Xl) 25 mg PO DAILY [facility] Last Admin: 06/03/17 10:08 Dose: 25 mg Rosuvastatin Calcium (Crestor) 5 mg PO HS [facility] Last Admin: 06/02/17 21:45 Dose: 5 mg Sucralfate (Carafate Tab) 1 gm PO QID [facility] Last Admin: 06/03/17 13:51 Dose: 1 gm Sucralfate (Carafate Oral Susp) 1 gm PO ACBD [facility] Tamsulosin HCl (Flomax) 0.4 mg PO DAILY [facility] Last Admin: 06/03/17 10:07 Dose: 0.4 mg Topiramate (Topamax) 100 mg PO BID [facility] Last Admin: 06/03/17 10:09 Dose: 100 mg Trazodone HCl (Desyrel) 100 mg PO HS PRN PRN Reason: Insomnia - Labs Labs: 06/03/17 07:39 06/03/17 07:39 PT 11.5 SECONDS (9.7-12.2) 06/01/17 20:14 INR 1.0 06/01/17 20:14 APTT 41 SECONDS (21-34) H 06/01/17 20:14 - Constitutional Appears: No Acute Distress - Head Exam Head Exam: ATRAUMATIC, NORMAL INSPECTION, NORMOCEPHALIC - Eye Exam Eye Exam: EOMI, Normal appearance, PERRL Pupil Exam: NORMAL ACCOMODATION, PERRL - Cardiovascular Exam Cardiovascular Exam: REGULAR RHYTHM, +S1, +S2 - GI/Abdominal Exam GI & Abdominal Exam: Soft, Normal Bowel Sounds. absent: Tenderness - Neurological Exam Neurological Exam: Alert, Awake, CN II-XII Intact, Normal Gait, Oriented x3 - Psychiatric Exam Psychiatric exam: Normal Affect, Normal Mood Assessment and Plan (1) GI bleed Status: Acute (2) Alcohol abuse Status: Acute
[2017-06-03] MEDS ORDERED: Sucralfate 1 gm/10 ml Oral Susp UD PO SCH (16:30)
[2017-06-03] MEDS ORDERED: Bisacodyl 5mg EC Tab PO ONE (17:00)
[2017-06-03] MEDS: Folic Acid 1 MG, Thiamine 100 MG, Multivitamin (MVI) 10 ML in Dextrose 5% In Water 1,00... IV SCH ×3 (17:35→22:35)
[2017-06-03 18:31] LABS: CARCINOEMBRYONIC ANTIGEN 1.2 ng/mL (0-3.0)
[2017-06-03 18:35] LABS: CA 19-9 3.3 U/mL (0-37)
[2017-06-04] MEDS ORDERED: Propofol 10 mg/ml Inj (20 ML) ONE ×2 (09:56)
[2017-06-04] MEDS ORDERED: Midazolam 2 MG/2 ML VIAL ONE (09:58)
[2017-06-04] MEDS: Ferric Sodium Gluconat Complex 62.5 mg/5 ml Vial IVPB SCH (11:21)
[2017-06-04] MEDS: Metoprolol Succinate 25 mg XL Tab PO SCH (11:22)
[2017-06-04 11:26] VITALS: RESP 20
--- NOTE | 2017-06-04 11:35 | CON ---
DATE: 06/02/[address] Dennys Vasquez: I was called for GI consultation by the admitting medical team. The patient is seen and fully examined for GI consultation on 06/02/2017, as requested by the medical staff, the entire chart is reviewed including, but not limited to the most recent lab and radiologist's results, current and previous medication list, current and previous medical events, correction to medication list as well as all the available current and previous medical records. Case discussed with the staff at length. HISTORY OF PRESENT ILLNESS: This 61-year-old male with a known history of heavy alcohol intake, was admitted to the hospital through the emergency room with recurrent episodes of abdominal pain, rectal bleeding, nausea and vomiting on and off. No reported chest pain, palpitations or reported significant shortness of breath. No chills or fever. PAST MEDICAL HISTORY: Including mainly, but not limited to, 1. Alcoholism. 2. Hypertension. 3. Peptic ulcer disease. 4. Hyperlipidemia. 5. Anxiety syndrome. 6. Bronchial asthma. 7. Reported history of diabetes mellitus with reported coronary artery disease and congestive heart failure before, as per patient and records. 8. Also it was reported that the patient might have hypothyroidism with pneumonia before. FAMILY HISTORY: Unknown. SOCIAL HISTORY: Positive for alcohol, cigarette smoking as well as substance abuse before. After being admitted to the hospital, the patient was found to have low hemoglobin of 9.71 with low hematocrit 33.1, with low potassium of 2.9 and low CO2 content of 19 with excessive increase of blood glucose level in the blood. Abdomen and pelvic CAT scan showed possible mild enteritis *------* seen. PHYSICAL EXAMINATION: GENERAL: A 61-year-old male, who appears to be fully awake, alert and oriented. VITAL SIGNS: Afebrile with pulse of 72, respiratory rate 20 to 22, blood pressure 108/42. HEENT: Showed very dry mucous membranes, slightly icteric sclerae. LYMPH NODES: No lymphadenopathy. LUNGS: Few scattered crepitation with mild decrease of air entry bilaterally. HEART: Positive S1 and S2. ABDOMEN: Soft with generalized tenderness and mild distention. No mass or organomegaly. No rebound tenderness or guarding. RECTAL: Positive tone, trace of fresh and old blood, black tarry stool, guaiac positive. EXTREMITIES: No significant edema, clubbing or cyanosis. NEUROLOGIC: No reported significant new neurological deficits, sensory or motor. IMPRESSION: 1. Alcoholism. 2. To rule out alcoholic pancreatitis. 3. Exacerbation of peptic ulcer disease. 4. Gastrointestinal bleeding upper versus lower, to rule out possible bleeding, gastric ulcer versus bleeding esophageal varices versus lower gastrointestinal blood loss. 4. Rule out occult gastrointestinal malignancy. 5. Anemia secondary to above. 6. Multiple past medical history including, but not limited to alcohol abuse, bronchial asthma, hypertension, hyperlipidemia, reported diabetes mellitus, as well as reported hypothyroidism with coronary artery disease and congestive heart failure before as well as diverticulosis with episodes of diverticulitis. PLAN: 1. I agree with your plan. 2. Blood transfusion as needed to keep hemoglobin around 10 g%. 3. Cancer markers. 4. Upper endoscopy to rule out upper GI tract source of blood loss, if negative for bleeding, then colonoscopy is to be scheduled after adequate preparation. 5. Abdominal ultrasound. 6. Serum lipase and amylase level. Thank you for letting me participate in your patient's case management. Further evaluation and recommendations to follow. Becca Sanchez MD
[2017-06-04 15:21] VITALS: BP 100/60; TEMP 98.3; O2SAT 98
--- NOTE | 2017-06-04 16:02 | CP.PCM.PN ---
Subjective - Date & Time of Evaluation Date of Evaluation: 06/04/17 Time of Evaluation: 16:02 - Subjective Subjective: PT SEEN BY DR. VASQUES TODAY AND CLEARED FOR D/C HOME. HAD COLONOSCOPY DONE AND CLEARED BY DR. BUENROSTRO FOR D/C. TO CONTINUE PEPCID AND CARAFATE; BOTH SENT E- RX TO PHARMACY. PT TO STOP ASA, NSAIDS, AND BETA TOMMIE; UPON DISCUSSING THIS HE "SMIRKED" AND LOOKED THOUGH HE LOST INTEREST IN CONVERSATION---TO ME THERE IS A CONCERN TO WHETHER OR NOT HE WILL BE COMPLIANT AND FOLLOW THESE INSTRUCTIONS. TO F/U WITH DR. VASQUES AND DR. BUENROSTRO. NO FURTHER ORDERS. Objective - Vital Signs/Intake and Output Vital Signs (last 24 hours): Temp Pulse Resp BP Pulse Ox 98.3 F 57 L 20 100/60 98 06/04/17 15:17 06/04/17 15:17 06/04/17 15:17 06/04/17 15:17 06/04/17 15:17 Intake and Output: 06/04/17 06/04/17 06:59 18:59 Intake Total 850 Balance 850 - Medications Medications: Current Medications Chlordiazepoxide (Librium) 25 mg PO Q8 PRN PRN Reason: Anxiety Last Admin: 06/02/17 11:53 Dose: 25 mg Citalopram Hydrobromide (Celexa) 40 mg PO DAILY [facility] Last Admin: 06/04/17 11:22 Dose: 40 mg Famotidine (Pepcid) 20 mg IVP Q12 [facility] Last Admin: 06/04/17 11:24 Dose: 20 mg Ferric Sodium Gluconate Complex (Ferrlecit) 125 mg IVPB DAILY [facility] Stop: 06/10/17 10:01 Last Admin: 06/04/17 11:21 Dose: 125 mg Gabapentin (Neurontin) 300 mg PO TID [facility] Last Admin: 06/04/17 11:22 Dose: 300 mg Folic Acid 1 mg/ Thiamine HCl 100 mg/ Multivitamins/Vitamin C 10 ml/ Dextrose 1 ,011.2 mls @ 100 mls/hr IV Q24H [facility] Last Admin: 06/03/17 22:35 Dose: 100 mls/hr Rosuvastatin Calcium (Crestor) 5 mg PO HS [facility] Last Admin: 06/03/17 22:35 Dose: 5 mg Sucralfate (Carafate Tab) 1 gm PO QID [facility] Last Admin: 06/04/17 11:24 Dose: 1 gm Tamsulosin HCl (Flomax) 0.4 mg PO DAILY [facility] Last Admin: 06/04/17 11:22 Dose: 0.4 mg Topiramate (Topamax) 100 mg PO BID [facility] Last Admin: 06/04/17 11:25 Dose: 100 mg Trazodone HCl (Desyrel) 100 mg PO HS PRN PRN Reason: Insomnia - Labs Labs: 06/03/17 07:39 06/03/17 07:39 PT 11.5 SECONDS (9.7-12.2) 06/01/17 20:14 INR 1.0 06/01/17 20:14 APTT 41 SECONDS (21-34) H 06/01/17 20:14
[2017-06-04 17:41] VITALS: PULSE 58
--- NOTE | 2017-06-04 21:19 | CP.PCM.DIS ---
Provider - Provider Date of Admission: 06/01/17 23:06 Attending physician: Dennys Vasquez MD Time Spent in preparation of Discharge (in minutes): 45 Diagnosis - Discharge Diagnosis (1) GI bleed Status: Acute (2) Alcohol abuse Status: Acute Hospital Course - Lab Results Lab Results: Most Recent Lab Values WBC 4.7 K/uL (4.8-10.8) L 06/03/17 07:39 RBC 4.06 Mil/uL (4.40-5.90) L 06/03/17 07:39 Hgb 9.3 g/dL (12.0-18.0) L 06/03/17 07:39 Hct 30.9 % (35.0-51.0) L 06/03/17 07:39 MCV 76.1 fL (80.0-94.0) L 06/03/17 07:39 MCH 22.9 pg (27.0-31.0) L 06/03/17 07:39 MCHC 30.1 g/dL (33.0-37.0) L 06/03/17 07:39 RDW 22.5 % (11.5-14.5) H 06/03/17 07:39 Plt Count 137 K/uL (130-400) 06/03/17 07:39 MPV 8.8 fL (7.2-11.7) 06/03/17 07:39 Neut % (Auto) 53.4 % (50.0-75.0) 06/03/17 07:39 Lymph % (Auto) 21.3 % (20.0-40.0) 06/03/17 07:39 Cobb % (Auto) 19.0 % (0.0-10.0) H 06/03/17 07:39 Eos % (Auto) 3.8 % (0.0-4.0) 06/03/17 07:39 Baso % (Auto) 2.5 % (0.0-2.0) H 06/03/17 07:39 Neut # 2.5 K/uL (1.8-7.0) 06/03/17 07:39 Lymph # 1.0 K/uL (1.0-4.3) 06/03/17 07:39 Cobb # 0.9 K/uL (0.0-0.8) H 06/03/17 07:39 Eos # 0.2 K/uL (0.0-0.7) 06/03/17 07:39 Baso # 0.1 K/uL (0.0-0.2) 06/03/17 07:39 PT 11.5 SECONDS (9.7-12.2) 06/01/17 20:14 INR 1.0 06/01/17 20:14 APTT 41 SECONDS (21-34) H 06/01/17 20:14 Sodium 140 mmol/L (132-148) 06/03/17 07:39 Potassium 3.6 mmol/L (3.6-5.2) 06/03/17 07:39 Chloride 104 mmol/L (98-107) 06/03/17 07:39 Carbon Dioxide 25 mmol/L (22-30) 06/03/17 07:39 Anion Gap 15 (10-20) 06/03/17 07:39 BUN 6 mg/dL (9-20) L 06/03/17 07:39 Creatinine 0.9 MG/DL (0.8-1.5) 06/03/17 07:39 Est GFR ( Amer) > 60 06/03/17 07:39 Est GFR (Non-Af Amer) > 60 06/03/17 07:39 POC Glucose (mg/dL) 121 mg/dL (65-110) H 06/04/17 16:31 Random Glucose 99 mg/dL (75-110) 06/03/17 07:39 Calcium 8.3 mg/dl (8.6-10.4) L 06/03/17 07:39 Total Bilirubin 0.4 mg/dL (0.2-1.3) 06/03/17 07:39 AST 22 U/L (17-59) 06/03/17 07:39 ALT 26 U/L (21-72) 06/03/17 07:39 Alkaline Phosphatase 56 U/L (38-126) 06/03/17 07:39 Troponin I < 0.0120 ng/mL (0.00-0.120) 06/01/17 20:14 Total Protein 6.2 g/dL (6.3-8.3) L 06/03/17 07:39 Albumin 3.3 g/dL (3.5-5.0) L 06/03/17 07:39 Globulin 3.0 gm/dL (2.2-3.9) 06/03/17 07:39 Albumin/Globulin Ratio 1.1 (1.0-2.1) 06/03/17 07:39 Lipase 223 U/L (23-300) 06/01/17 20:14 Alpha Fetoprotein 1.7 ng/mL (0.0-7.5) 06/03/17 17:38 Carcinoembryonic Ag 1.2 ng/mL (0-3.0) 06/03/17 17:38 CA 19-9 Antigen 3.3 U/mL (0-37) 06/03/17 17:38 Urine Color Yellow (YELLOW) 06/01/17 21:53 Urine Clarity Clear (Clear) 06/01/17 21:53 Urine pH 6.0 (5.0-8.0) 06/01/17 21:53 Ur Specific [place] 1.004 (1.003-1.030) 06/01/17 21:53 Urine Protein Negative mg/dL (NEGATIVE) 06/01/17 21:53 Urine Glucose (UA) Normal mg/dL (Normal) 06/01/17 21:53 Urine Ketones Negative mg/dL (NEGATIVE) 06/01/17 21:53 Urine Blood Negative (NEGATIVE) 06/01/17 21:53 Urine Nitrate Negative (NEGATIVE) 06/01/17 21:53 Urine Bilirubin Negative (NEGATIVE) 06/01/17 21:53 Urine Urobilinogen Normal mg/dL (0.2-1.0) 06/01/17 21:53 Ur Leukocyte Esterase Neg Ellie/uL (Negative) 06/01/17 21:53 Urine WBC (Auto) < 1 /hpf (0-5) 06/01/17 21:53 Urine RBC (Auto) < 1 /hpf (0-3) 06/01/17 21:53 Stool Occult Blood Positive (NEGATIVE) H 06/01/17 20:02 Alcohol, Quantitative 224 mg/dl (0-10) H 06/01/17 21:07 Blood Type O POSITIVE 06/02/17 11:55 Antibody Screen Negative 06/02/17 11:55 Crossmatch See Detail 06/02/17 11:55 - Hospital Course Hospital Course: Pt seen and examined today, s/p EGD, colononscopy, findings were noted gastritis , collitis pt is stable given protonix, carafate. Bardycardia was due to Beta blockers whichh were Discontinued Pt is stable for discharge home Discharge Exam - Head Exam Head Exam: ATRAUMATIC, NORMAL INSPECTION, NORMOCEPHALIC - Eye Exam Eye Exam: EOMI, Normal appearance, PERRL Pupil Exam: NORMAL ACCOMODATION, PERRL - ENT Exam ENT Exam: Mucous Membranes Moist - Respiratory Exam Respiratory Exam: Clear to PA & Lateral, NORMAL BREATHING PATTERN - Cardiovascular Exam Cardiovascular Exam: REGULAR RHYTHM, +S1, +S2 - GI/Abdominal Exam GI & Abdominal Exam: Normal Bowel Sounds - Neurological Exam Neurological exam: Alert, CN II-XII Intact, Normal Gait, Oriented x3, Reflexes Normal - Psychiatric Exam Psychiatric exam: Normal Affect, Normal Mood Discharge Plan - Discharge Medications Prescriptions: Sucralfate [Carafate Tab] 1 gm PO QID #120 tab Famotidine [Pepcid] 20 mg PO Q12 #60 tab - Follow Up Plan Condition: STABLE Disposition: HOME/ ROUTINE Instructions: Gastrointestinal Bleeding (DC), Diabetes Mellitus Type 2 in Adults (DC), Meal Planning with the Plate Method (DC), Pneumonia (DC), Alcohol Dependence (GEN) Additional Instructions: FOLLOW UP WITH DR. VASQUEZ IN THE OFFICE WITHIN 1-2 WEEKS---CALL TO MAKE AN APPOINTMENT. FOLLOW UP WITH DR. BO IN THE OFFICE WITHIN 2-3 WEEKS---CALL TO MAKE AN APPOINTMENT. CONTINUE MEDICATIONS PER YOUR DOCTOR AND PER YOUR DISCHARGE PAPERS. YOUR TWO NEW PRESCRIPTIONS HAVE BEEN SENT TO YOUR PHARMACY ALREADY. PER DR. VASQUEZ: STOP TAKING ASPIRIN, NAPROXEN/NAPROSYN, ADVIL/MOTRIN/IBUPROFEN , AND METOPROLOL (TOPROL XL). FOR FURTHER QUESTIONS, CONTACT DR. VASQUEZ'S OFFICE. Referrals: Becca Bo [Staff Provider] - Dennys Vasquez MD [Staff Provider] -
--- NOTE | 2017-07-01 18:09 | CARD ---
APPROVED REPORT EKG Measurement Heart [id number] <Conclusion> Normal sinus rhythm Possible Inferior infarct, age undetermined Cannot rule out Anterior infarct, age undetermined Abnormal ECG
== END 2017-06-04 18:40 | disposition home or self-care (01) | DRG 379 ==
LOC: C.ER 19:20 → C.9E 23:06 → C.6T 23:45 → C.5T 06-04 09:13
PROVIDERS: ADMIT Internal Medicine; ATTEND Internal Medicine
PROC: 0DB68ZX Excision of Stomach, Via Natural or Artificial Opening Endoscopic, Diagnostic (ICD-10-PCS; principal; 2017-06-03 12:30)
PROC: 0DBM8ZX Excision of Descending Colon, Via Natural or Artificial Opening Endoscopic, Diagnostic (ICD-10-PCS; 2017-06-04)
DX: K92.2 Gastrointestinal hemorrhage, unspecified (principal); K29.00 Acute gastritis without bleeding; K52.9 Noninfective gastroenteritis and colitis, unspecified; K21.0 Gastro-esophageal reflux disease with esophagitis; K57.30 Diverticulosis of large intestine without perforation or abscess without bleeding; K64.8 Other hemorrhoids; D50.0 Iron deficiency anemia secondary to blood loss (chronic); I11.0 Hypertensive heart disease with heart failure; I50.9 Heart failure, unspecified; K27.9 Peptic ulcer, site unspecified, unspecified as acute or chronic, without hemorrhage or perforation; E11.9 Type 2 diabetes mellitus without complications; J44.9 Chronic obstructive pulmonary disease, unspecified; E03.9 Hypothyroidism, unspecified; I25.10 Atherosclerotic heart disease of native coronary artery without angina pectoris; E78.5 Hyperlipidemia, unspecified; F10.20 Alcohol dependence, uncomplicated; N40.0 Benign prostatic hyperplasia without lower urinary tract symptoms; F31.9 Bipolar disorder, unspecified; G47.30 Sleep apnea, unspecified; E78.00 Pure hypercholesterolemia, unspecified; F17.210 Nicotine dependence, cigarettes, uncomplicated; Z95.1 Presence of aortocoronary bypass graft; Z87.11 Personal history of peptic ulcer disease; Z95.5 Presence of coronary angioplasty implant and graft

== ENCOUNTER 2017-06-25 15:00 | Observation (INO) | payer OTHER ==
[2017-06-25 15:01] VITALS: BMI 29.8
--- NOTE | 2017-06-25 15:16 | C.PDOC ---
History Of Present Illness Patient is a 61 y/o M with hx of DM, HTN, CAD s/p quadruple bypass, COPD on home O2, and gastritis presenting with burning epigastric pain and chest pain. Patient reports that he has had multiple episodes of vomiting today. He reports that [facility] was at [employer] [facility] trying to get something for his vomiting and epigastric pain (similar to when he developed L sided chest pain and called 911. Patient reports multiple episodes of NB/NB vomitus. Reports passing hardened stool and passing flatus. Recent egd on 06/04/17 shows esophagitis and gastriits. colonoscopy shows hemorrhoids and diverticulosis. PMD: Behzad Vasquez Time Seen by Provider: 06/25/17 15:03 Chief Complaint (Nursing): GI Problem Past Medical History Vital Signs: Last Vital Signs Temp 98.3 F 06/25/17 15:12 Pulse 86 06/25/17 15:12 Resp 18 06/25/17 15:12 BP 153/66 H 06/25/17 15:12 Pulse Ox 98 06/25/17 17:12 - Medical History PMH: Anemia (iron deficiency), Anxiety, Arthritis, Asthma, Benign Prostatic Hyperplasia, Bipolar Disorder, Bronchitis, CAD, CHF, COPD, Depression, Diabetes , Diverticulitis, Emphysema, Hepatitis (PATIENT STATED HE HAS HEPATITIS BUT COULD NOT RECALL WHICH ONE), HTN, Hypercholesterolemia, Hyperlipidemia, Hypothyroidism, Migraine, Pancreatitis, Pneumonia, Seizures, Sleep Apnea Denies: HIV, Chronic Kidney Disease, Sexually Transmitted Disease Surgical History: CABG ((quadruple bypass) 2010), Coronary Stent - [facility] Procedures ALCOHOL DETOXIFICATION (03/12/15) CORONAR ARTERIOGR-2 CATH (07/24/15) CORONARY ARTERY STENT INSERTION [id number] (07/24/15) DETOXIFICATION SERVICES FOR SUBSTANCE ABUSE TREATMENT (12/06/16) ESOPHAGOGASTRODUODENOSCOPY [EGD] W/CLOSED BIOPSY (05/21/13) EXCISION OF DESCENDING COLON, ENDO, DIAGN (06/01/17) EXCISION OF STOMACH, ENDO, DIAGN (06/01/17) GROUP PSYCHOTHERAPY (11/19/16) INDIVID PSYCHOTHERAP NEC (11/04/14) INDIVIDUAL PSYCHOTHERAPY, BEHAVIORAL (01/17/16) INDIVIDUAL PSYCHOTHERAPY, COGNITIVE-BEHAVIORAL (11/19/16) INDIVIDUAL PSYCHOTHERAPY, SUPPORTIVE (10/02/16) INSERTION OF ONE VASCULAR STENT (07/24/15) IRRIGATION OF EAR (05/23/15) LEFT HEART CARDIAC CATH (07/19/15) LT HEART ANGIOCARDIOGRAM (07/19/15) OTHER GROUP THERAPY (11/04/14) PACKED CELL TRANSFUSION (05/21/13) PERCUTANEOUS TRANSLUMINAL CORONARY ANGIOPLASTY [PTCA] (07/24/15) PROCEDURE ON SINGLE VESSEL (07/24/15) PSYCHIAT DRUG THERAP NEC (11/04/14) RT HEART ANGIOCARDIOGRAM (07/22/15) RT HEART CARDIAC CATH (07/22/15) VACCINATION NEC (09/28/14) Family History: States: Unknown Family Hx - Social History Hx Tobacco Use: Yes Hx Alcohol Use: Yes Hx Substance Use: Yes - Immunization History Hx Tetanus Toxoid Vaccination: Yes Hx Influenza Vaccination: Yes Hx Pneumococcal Vaccination: Yes Review Of Systems Constitutional: Negative for: Fever, Chills Cardiovascular: Positive for: Chest Pain. Negative for: Palpitations, Orthopnea , Edema, Light Headedness Respiratory: Positive for: Shortness of Breath (baseline, on home o2), Wheezing. Negative for: Cough Gastrointestinal: Positive for: Nausea, Vomiting, Abdominal Pain (epigastric). Negative for: Diarrhea, Constipation Genitourinary: Negative for: Dysuria Neurological: Negative for: Weakness, Numbness Physical Exam - Physical Exam Appears: Well, Non-toxic, No Acute Distress Skin: Normal Color, Warm, Dry Head: Atraumatic, Normacephalic Eye(s): bilateral: Normal Inspection, PERRL, EOMI Neck: Supple Chest: Symmetrical, No Deformity, No Tenderness, No Subcutaneous Emphysema Cardiovascular: Rhythm Regular, Other (midline scar) Respiratory: Wheezing Gastrointestinal/Abdominal: Soft, No Tenderness Back: Normal Inspection, No CVA Tenderness Extremity: Normal ROM, No Pedal Edema Neurological/Psych: Oriented x3 ED Course And Treatment - Laboratory Results Result Diagrams: 06/25/17 15:39 06/25/17 16:15 O2 Sat by Pulse Oximetry: 98 (ra) Pulse Ox Interpretation: Normal - Other Rad Chest X-Ray: Interpreted by Me, Viewed By Me, Read By Radiologist Interpretation: FINDINGS: Examination limited by habitus and hypoinflation. LUNGS: Mild pulmonary venous congestion. Right hilar prominence. Please note that chest x-ray has limited sensitivity for the detection of pulmonary masses. PLEURA: No significant pleural effusion identified. No definite pneumothorax . CARDIOVASCULAR: Median sternotomy wires with evidence of CABG. Cardiomegaly. OSSEOUS STRUCTURES: Degenerative changes of the spine. VISUALIZED UPPER ABDOMEN: Unremarkable. OTHER FINDINGS: None. IMPRESSION: Mild pulmonary venous congestion. Right hilar prominence. Cardiomegaly. Status post median sternotomy wires and CABG. Medical Decision Making Medical Decision Making: Patient given zofran, pepcid and IVF for epigastric pain. Refusing aspirin for cardiac protection EKG shows NSR at 81bpm with t wavce inversions in lateral leads, unchanged from prior ekg on 04/21/17 5:06PM CMP grossly normal. Trop x 1 negative. Abdomen is soft NT/ND. Pain is similar to prior gastritis and patient had recent CT and EGD. He has known cardiac disease. Spoke to Dr. Vasquez and will transfer to tele observation. Disposition - Disposition Disposition: HOSPITALIZED Disposition Time: 17:10 Condition: FAIR - Clinical Impression Clinical Impression: Gastritis, Chest pain
[2017-06-25] MEDS ORDERED: Sodium Chloride 0.9% 500 ML IV ONE (15:18)
[2017-06-25] MEDS ORDERED: Sodium Chloride 0.9% 1,000 ML ONE (15:39)
[2017-06-25 15:47] LABS: BASO # 0.1 K/uL (0.0-0.2); BASO % 0.9 % (0.0-2.0); EOS # 0.1 K/uL (0.0-0.7); EOS % 2.1 % (0.0-4.0); HEMATOCRIT 36.1 % (35.0-51.0); LYMPH # 1.4 K/uL (1.0-4.3); MEAN CELL VOLUME 76.4 fL (80.0-94.0); MEAN CORPUSCULAR HEMOGLOBIN 23.9 pg (27.0-31.0); MEAN CORPUSCULAR HGB CONC 31.2 g/dL (33.0-37.0); MEAN PLATELET VOLUME 8.2 fL (7.2-11.7); MONO # 0.5 K/uL (0.0-0.8); MONO % 8.4 % (0.0-10.0); NRBC % 0.1 % (0.0-2.0); RED CELL DISTRIBUTION WIDTH 22.9 % (11.5-14.5)
--- NOTE | 2017-06-25 16:00 | RAD ---
HISTORY: chest pain COMPARISON: Chest x-ray performed 04/28/17 TECHNIQUE: Chest, one view. FINDINGS: Examination limited by habitus and hypoinflation. LUNGS: Mild pulmonary venous congestion. Right hilar prominence. Please note that chest x-ray has limited sensitivity for the detection of pulmonary masses. PLEURA: No significant pleural effusion identified. No definite pneumothorax . CARDIOVASCULAR: Median sternotomy wires with evidence of CABG. Cardiomegaly. OSSEOUS STRUCTURES: Degenerative changes of the spine. VISUALIZED UPPER ABDOMEN: Unremarkable. OTHER FINDINGS: None. IMPRESSION: Mild pulmonary venous congestion. Right hilar prominence. Cardiomegaly. Status post median sternotomy wires and CABG.
[2017-06-25 16:34] LABS: ALB/GLOB RATIO 1.1 (1.0-2.1); ALKALINE PHOSPHATASE 75 U/L (38-126); ALT/SGPT 33 U/L (21-72); AST/SGOT 33 U/L (17-59); BILIRUBIN,TOTAL 0.3 mg/dL (0.2-1.3); BLOOD UREA NITROGEN 9 mg/dL (9-20); CALCIUM 8.1 mg/dl (8.6-10.4); CARBON DIOXIDE 23 mmol/L (22-30); CHLORIDE 105 mmol/L (98-107); GFR AFRICAN-AMERICAN > 60; GLUCOSE,RANDOM 109 mg/dL (75-110); SODIUM 145 mmol/L (132-148); TOTAL PROTEIN 6.8 g/dL (6.3-8.3)
[2017-06-25] MEDS ORDERED: Potassium Chloride 20 mEq ER Tab PO STA (17:05)
[2017-06-25] MEDS ORDERED: Potassium Chloride 20 mEq/15 ml LIQ UD ONE (17:13)
[2017-06-25] MEDS ORDERED: Nitroglycerin 2% Ointment Foilpak UD TOP STA (20:06)
[2017-06-25] MEDS ORDERED: Nitroglycerin 2% Ointment Foilpak UD TOP ONE (20:10)
[2017-06-25] MEDS: Albuterol-Ipratrop 3 mg / 0.5 (3 ml) UD INH SCH (22:31)
[2017-06-25] MEDS: Nitroglycerin 2% Ointment Foilpak UD TOP SCH (23:51)
[2017-06-26] MEDS: Albuterol-Ipratrop 3 mg / 0.5 (3 ml) UD INH SCH ×4 (01:01→19:17)
--- NOTE | 2017-06-26 02:02 | CP.PCM.HP ---
History of Present Illness - History of Present Illness History of Present Illness: 61 Y/O S/P CABG GASTRRITIS, HTN ALCOHOLISM CAME WITH EPIGASTRIC AND LOWER CHEST PAIN, NO COUGH NO FEVER Present on Admission - Present on Admission Any Indicators Present on Admission: No History of DVT/PE: No History of Uncontrolled Diabetes: No Urinary Catheter: No Decubitus Ulcer Present: No Review of Systems - Review of Systems Systems not reviewed;Unavailable: Unstable Vital Signs, Intoxicated, Uncooperative, Psychotic - Constitutional Constitutional: Anorexia, Chills - EENT Eyes: Dry Eye - Cardiovascular Cardiovascular: Chest Pain at Rest, Leg Edema, Palpitations, Rapid Heart Rate - Respiratory Respiratory: Cough - Musculoskeletal Musculoskeletal: Abnormal Gait, Arthralgias - Integumentary Integumentary: Dry Skin - Neurological Neurological: Abnormal Movements, Tremor, Weakness - Psychiatric Psychiatric: Abnormal Sleep Pattern, Anhedonia, Anxiety, Behavioral Changes, Change in Appetite, Difficulty Concentrating Past Patient History - Infectious Disease Hx of Infectious Diseases: None - Past Medical History & Family History Past Medical History?: Yes - Past Social History Smoking Status: Heavy Smoker > 10 Cigarettes Daily - CARDIAC Hx Congestive Heart Failure: Yes Hx Hypercholesterolemia: Yes Hx Hypertension: Yes - PULMONARY Hx Asthma: Yes Hx Bronchitis: Yes Hx Chronic Obstructive Pulmonary Disease (COPD): Yes Hx Emphysema: Yes Hx Pneumonia: Yes Hx Sleep Apnea: Yes - NEUROLOGICAL Hx Migraine: Yes Hx Seizures: Yes - HEENT Hx HEENT Problems: No - RENAL Hx Chronic Kidney Disease: No - ENDOCRINE/METABOLIC Hx Hypothyroidism: Yes - HEMATOLOGICAL/ONCOLOGICAL Hx Anemia: Yes (iron deficiency) Hx Human Immunodeficiency Virus (HIV): No - INTEGUMENTARY Hx Dermatological Problems: No - MUSCULOSKELETAL/RHEUMATOLOGICAL Hx Arthritis: Yes Hx Falls: Yes - GASTROINTESTINAL Hx Diverticulitis: Yes Hx Pancreatitis: Yes - GENITOURINARY/GYNECOLOGICAL Hx Sexually Transmitted Disorders: No - PSYCHIATRIC Hx Anxiety: Yes Hx Bipolar Disorder: Yes Hx Depression: Yes Hx Substance Use: Yes - SURGICAL HISTORY Hx Coronary Artery Bypass Graft: Yes ((quadruple bypass) 2010) Hx Coronary Stent: Yes - ANESTHESIA Hx Anesthesia: Yes Hx Anesthesia Reactions: No Hx Malignant Hyperthermia: No Meds Allergies/Adverse Reactions: Allergies Allergy/AdvReac Type Severity Reaction Status Date / Time No Known Allergies Allergy Verified 06/25/17 15:16 Physical Exam - Constitutional Appears: In Acute Distress, Agitated, Confused, Chronically Ill - Head Exam Head Exam: ATRAUMATIC, NORMAL INSPECTION, NORMOCEPHALIC - ENT Exam ENT Exam: Mucous Membranes Moist, Normal Exam, Normal Oropharynx, TM's Normal Bilaterally - Neck Exam Neck exam: Positive for: Normal Inspection - Respiratory Exam Respiratory Exam: Clear to Auscultation Bilateral, Rhonchi, NORMAL BREATHING PATTERN - Cardiovascular Exam Cardiovascular Exam: Tachycardia, REGULAR RHYTHM, +S1, +S2 - GI/Abdominal Exam GI & Abdominal Exam: Normal Bowel Sounds - Extremities Exam Extremities exam: Positive for: normal capillary refill, pedal pulses present - Back Exam Back exam: NORMAL INSPECTION - Psychiatric Exam Psychiatric exam: Anxious, Depressed, Flat Affect - Skin Skin Exam: Dry, Intact Results - Vital Signs Recent Vital Signs: Last Vital Signs Temp 98.2 F 06/26/17 01:10 Pulse 82 06/26/17 01:10 Resp 20 06/26/17 01:10 BP 170/82 H 06/26/17 01:10 Pulse Ox 96 06/26/17 01:10 - Labs Result Diagrams: 06/25/17 15:39 06/25/17 16:15 Labs: Laboratory Results - last 24 hr 06/25/17 21:35 POC Glucose (mg/dL) 77 Assessment & Plan (1) Chest pain Status: Acute Priority: High (2) Abdominal pain Status: Acute Priority: Medium (3) Alcohol abuse Status: Acute Priority: High (4) Hypertension Status: Chronic Priority: Low
[2017-06-26] MEDS: Nitroglycerin 2% Ointment Foilpak UD TOP SCH (06:00)
[2017-06-26 08:18] LABS: BASO # 0.1 K/uL (0.0-0.2); BASO % 1.6 % (0.0-2.0); EOS # 0.1 K/uL (0.0-0.7); EOS % 1.3 % (0.0-4.0); HEMATOCRIT 35.4 % (35.0-51.0); LYMPH % 15.8 % (20.0-40.0); MEAN CELL VOLUME 76.4 fL (80.0-94.0); MEAN CORPUSCULAR HEMOGLOBIN 23.6 pg (27.0-31.0); MEAN CORPUSCULAR HGB CONC 30.8 g/dL (33.0-37.0); MEAN PLATELET VOLUME 8.5 fL (7.2-11.7); MONO # 0.6 K/uL (0.0-0.8); MONO % 9.1 % (0.0-10.0); RED CELL DISTRIBUTION WIDTH 22.2 % (11.5-14.5); WHITE BLOOD COUNT 6.2 K/uL (4.8-10.8)
[2017-06-26 08:26] LABS: CHLORIDE 102 mmol/L (98-107); POTASSIUM 3.4 mmol/L (3.6-5.2); SODIUM 139 mmol/L (132-148)
[2017-06-26 08:28] LABS: BILIRUBIN,TOTAL 0.8 mg/dL (0.2-1.3); GFR AFRICAN-AMERICAN > 60
[2017-06-26 08:29] LABS: ALB/GLOB RATIO 1.1 (1.0-2.1); ALKALINE PHOSPHATASE 64 U/L (38-126); ALT/SGPT 36 U/L (21-72); AST/SGOT 32 U/L (17-59); BLOOD UREA NITROGEN 5 mg/dL (9-20); CALCIUM 8.4 mg/dl (8.6-10.4); CARBON DIOXIDE 28 mmol/L (22-30); GLUCOSE,RANDOM 95 mg/dL (75-110); TOTAL PROTEIN 6.7 g/dL (6.3-8.3)
[2017-06-26] MEDS: Enoxaparin 40 mg Syringe SC SCH (09:10)
[2017-06-26] MEDS ORDERED: Potassium Chloride 20 mEq ER Tab PO ONE (13:05)
[2017-06-27] MEDS: Albuterol-Ipratrop 3 mg / 0.5 (3 ml) UD INH SCH ×3 (01:26→13:19)
--- NOTE | 2017-06-27 01:40 | CP.PCM.PN ---
Subjective - Date & Time of Evaluation Date of Evaluation: 06/26/17 Time of Evaluation: 20:37 - Subjective Subjective: FEELS BETTER, NO CHEST PAIN, [DYSPEPSIA, NO FEVER Objective - Vital Signs/Intake and Output Vital Signs (last 24 hours): Temp Pulse Resp BP Pulse Ox 98.2 F 76 20 172/78 H 95 06/26/17 23:30 06/26/17 23:30 06/26/17 23:30 06/26/17 23:30 06/26/17 23:30 Intake and Output: 06/26/17 06/27/17 18:59 06:59 Intake Total 480 480 Balance 480 480 - Medications Medications: Current Medications Albuterol/Ipratropium (Duoneb 3 Mg/0.5 Mg (3 Ml) Ud) 3 ml INH RQ6 [facility] Last Admin: 06/27/17 01:26 Dose: Not Given Citalopram Hydrobromide (Celexa) 40 mg PO DAILY [facility] Last Admin: 06/26/17 09:10 Dose: 40 mg Enoxaparin Sodium (Lovenox) 40 mg SC DAILY [facility] Last Admin: 06/26/17 09:10 Dose: 40 mg Famotidine (Pepcid) 20 mg PO Q12 [facility] Last Admin: 06/26/17 21:22 Dose: 20 mg Gabapentin (Neurontin) 300 mg PO TID [facility] Last Admin: 06/26/17 17:37 Dose: 300 mg Losartan Potassium (Cozaar) 100 mg PO DAILY [facility] Last Admin: 06/26/17 09:10 Dose: 100 mg Ondansetron HCl (Zofran Inj) 4 mg IVP Q6H PRN PRN Reason: Nausea/Vomiting Last Admin: 06/25/17 22:39 Dose: 4 mg Rosuvastatin Calcium (Crestor) 5 mg PO DAILY [facility] Last Admin: 06/26/17 09:10 Dose: 5 mg Sucralfate (Carafate Tab) 1 gm PO QID [facility] Last Admin: 06/26/17 21:22 Dose: 1 gm Tamsulosin HCl (Flomax) 0.4 mg PO DAILY [facility] Last Admin: 06/26/17 09:10 Dose: 0.4 mg Topiramate (Topamax) 100 mg PO BID [facility] Last Admin: 06/26/17 17:37 Dose: 100 mg Trazodone HCl (Desyrel) 100 mg PO HS PRN PRN Reason: Insomnia - Labs Labs: 06/26/17 08:04 06/26/17 08:04 PT 11.6 SECONDS (9.7-12.2) 06/25/17 15:39 INR 1.0 06/25/17 15:39 APTT 40 SECONDS (21-34) H 06/25/17 15:39 - Constitutional Appears: Non-toxic, No Acute Distress - Head Exam Head Exam: ATRAUMATIC, NORMAL INSPECTION, NORMOCEPHALIC - Eye Exam Eye Exam: EOMI, Normal appearance, PERRL Pupil Exam: NORMAL ACCOMODATION - ENT Exam ENT Exam: Mucous Membranes Moist, Normal Exam, Normal Oropharynx, TM's Normal Bilaterally - Neck Exam Neck Exam: Normal Inspection - Respiratory Exam Respiratory Exam: Clear to Ausculation Bilateral, NORMAL BREATHING PATTERN - Cardiovascular Exam Cardiovascular Exam: REGULAR RHYTHM, +S1, +S2 - GI/Abdominal Exam GI & Abdominal Exam: Soft, Normal Bowel Sounds - Rectal Exam Rectal Exam: NORMAL INSPECTION - Extremities Exam Extremities Exam: Normal Capillary Refill - Back Exam Back Exam: NORMAL INSPECTION - Neurological Exam Neurological Exam: Alert, Awake, CN II-XII Intact, Normal Gait, Oriented x3 Neuro motor strength exam: Left Upper Extremity: 5, Right Upper Extremity: 5, Left Lower Extremity: 5, Right Lower Extremity: 5 - Psychiatric Exam Psychiatric exam: Normal Affect, Normal Mood - Skin Skin Exam: Intact Assessment and Plan (1) Chest pain Assessment & Plan: RULED OUT AMI Status: Acute (2) Abdominal pain Assessment & Plan: ALCOHOL GASTRITIS Status: Acute (3) Alcohol abuse Status: Acute (4) Hypertension Status: Chronic
[2017-06-27] MEDS: Enoxaparin 40 mg Syringe SC SCH (09:51)
[2017-06-27 16:07] VITALS: BP 151/76; PULSE 64; RESP 18; TEMP 98.6; O2SAT 95
--- NOTE | 2017-06-27 23:20 | CP.PCM.DIS ---
Provider - Provider Date of Admission: 06/25/17 17:09 Attending physician: Dennys Vasquez MD Time Spent in preparation of Discharge (in minutes): 30 Diagnosis - Discharge Diagnosis (1) Chest pain Status: Acute Priority: High (2) Abdominal pain Status: Acute Priority: Medium (3) Alcohol abuse Status: Acute Priority: High (4) Hypertension Status: Chronic Priority: Low Hospital Course - Lab Results Lab Results: Most Recent Lab Values WBC 6.2 K/uL (4.8-10.8) 06/26/17 08:04 RBC 4.63 Mil/uL (4.40-5.90) 06/26/17 08:04 Hgb 10.9 g/dL (12.0-18.0) L 06/26/17 08:04 Hct 35.4 % (35.0-51.0) 06/26/17 08:04 MCV 76.4 fL (80.0-94.0) L 06/26/17 08:04 MCH 23.6 pg (27.0-31.0) L 06/26/17 08:04 MCHC 30.8 g/dL (33.0-37.0) L 06/26/17 08:04 RDW 22.2 % (11.5-14.5) H 06/26/17 08:04 Plt Count 191 K/uL (130-400) 06/26/17 08:04 MPV 8.5 fL (7.2-11.7) 06/26/17 08:04 Neut % (Auto) 72.2 % (50.0-75.0) 06/26/17 08:04 Lymph % (Auto) 15.8 % (20.0-40.0) L 06/26/17 08:04 Harmon % (Auto) 9.1 % (0.0-10.0) 06/26/17 08:04 Eos % (Auto) 1.3 % (0.0-4.0) 06/26/17 08:04 Baso % (Auto) 1.6 % (0.0-2.0) 06/26/17 08:04 Neut # 4.5 K/uL (1.8-7.0) 06/26/17 08:04 Lymph # 1.0 K/uL (1.0-4.3) 06/26/17 08:04 Harmon # 0.6 K/uL (0.0-0.8) 06/26/17 08:04 Eos # 0.1 K/uL (0.0-0.7) 06/26/17 08:04 Baso # 0.1 K/uL (0.0-0.2) 06/26/17 08:04 PT 11.6 SECONDS (9.7-12.2) 06/25/17 15:39 INR 1.0 06/25/17 15:39 APTT 40 SECONDS (21-34) H 06/25/17 15:39 Sodium 139 mmol/L (132-148) 06/26/17 08:04 Potassium 3.4 mmol/L (3.6-5.2) L 06/26/17 08:04 Chloride 102 mmol/L (98-107) 06/26/17 08:04 Carbon Dioxide 28 mmol/L (22-30) 06/26/17 08:04 Anion Gap 12 (10-20) 06/26/17 08:04 BUN 5 mg/dL (9-20) L 06/26/17 08:04 Creatinine 0.7 MG/DL (0.8-1.5) L 06/26/17 08:04 Est GFR ( Amer) > 60 06/26/17 08:04 Est GFR (Non-Af Amer) > 60 06/26/17 08:04 POC Glucose (mg/dL) 139 mg/dL (65-110) H 06/27/17 11:55 Random Glucose 95 mg/dL (75-110) 06/26/17 08:04 Calcium 8.4 mg/dl (8.6-10.4) L 06/26/17 08:04 Total Bilirubin 0.8 mg/dL (0.2-1.3) 06/26/17 08:04 AST 32 U/L (17-59) 06/26/17 08:04 ALT 36 U/L (21-72) 06/26/17 08:04 Alkaline Phosphatase 64 U/L (38-126) 06/26/17 08:04 Total Creatine Kinase 91 U/L (55-170) 06/27/17 00:15 CK-MB (Mass) 3.06 ng/mL (0.0-3.38) 06/27/17 00:15 Troponin I 0.0120 ng/mL (0.00-0.120) 06/25/17 16:15 Troponin I, Quant 0.0170 ng/mL (0.00-0.120) 06/27/17 00:15 Total Protein 6.7 g/dL (6.3-8.3) 06/26/17 08:04 Albumin 3.6 g/dL (3.5-5.0) 06/26/17 08:04 Globulin 3.1 gm/dL (2.2-3.9) 06/26/17 08:04 Albumin/Globulin Ratio 1.1 (1.0-2.1) 06/26/17 08:04 Lipase 176 U/L (23-300) 06/25/17 16:15 - Hospital Course Hospital Course: ADMITTED WITH ETOH INTOXICATION AND DT'S WITH CHEST AND EPIGASTRIC PAIN, NO SOB Discharge Exam - Head Exam Head Exam: ATRAUMATIC, NORMAL INSPECTION, NORMOCEPHALIC - Eye Exam Eye Exam: EOMI, Normal appearance, PERRL Pupil Exam: NORMAL ACCOMODATION - ENT Exam ENT Exam: Mucous Membranes Moist, Normal Exam, Normal Oropharynx, TM's Normal Bilaterally - Neck Exam Neck exam: Normal Inspection - Respiratory Exam Respiratory Exam: NORMAL BREATHING PATTERN - Cardiovascular Exam Cardiovascular Exam: REGULAR RHYTHM, +S1, +S2 - GI/Abdominal Exam GI & Abdominal Exam: Normal Bowel Sounds, Unremarkable - Rectal Exam Rectal Exam: NORMAL INSPECTION - Neurological Exam Neurological exam: Alert, CN II-XII Intact, Normal Gait, Oriented x3, Reflexes Normal - Psychiatric Exam Psychiatric exam: Normal Affect, Normal Mood - Skin Skin Exam: Intact Discharge Plan - Follow Up Plan Condition: FAIR Disposition: HOME/ ROUTINE Instructions: Gastritis (DC), Heart Healthy Diet (DC), COPD (Chronic Obstructive Pulmonary Disease) (DC), Acute Abdominal Pain (DC) Additional Instructions: Please make an appointment to see Dr. Vasquez in 1 week. Referrals: Dennys Vasquez MD [Staff Provider] -
--- NOTE | 2017-07-07 20:11 | CARD ---
APPROVED REPORT EKG Measurement Heart [id number] <Conclusion> Normal sinus rhythm Inferior infarct, age undetermined T wave abnormality, consider lateral ischemia Abnormal ECG
== END 2017-06-27 16:49 | disposition home or self-care (01) ==
LOC: C.ER 15:00 → C.9E 17:09 → C.5T 19:13
PROVIDERS: ADMIT Internal Medicine; ATTEND Internal Medicine
DX: K29.70 Gastritis, unspecified, without bleeding (principal); R07.89 Other chest pain; G47.30 Sleep apnea, unspecified; J44.9 Chronic obstructive pulmonary disease, unspecified; F17.210 Nicotine dependence, cigarettes, uncomplicated; E78.5 Hyperlipidemia, unspecified; Z99.81 Dependence on supplemental oxygen; Z95.5 Presence of coronary angioplasty implant and graft; I25.10 Atherosclerotic heart disease of native coronary artery without angina pectoris; E03.9 Hypothyroidism, unspecified
CPT/HCPCS: 36415; 71010; 80053; 82550; 82553; 82948; 83690; 84484; 85025; 85610; 85730; 94640; 96374; 99284; G0378; J1650; J2405; J7040

== ENCOUNTER 2017-10-30 15:48 | Emergency (ER) | payer OTHER, MEDICAID ==
[2017-10-30 15:51] VITALS: BMI 29.8
--- NOTE | 2017-10-30 16:35 | C.PDOC ---
History Of Present Illness Patient is a 61 y/o M brought in by EMS for public intoxication. Patient reports that he has been drinking today. Denies trauma. Has no somatic complaints. Time Seen by Provider: 10/30/17 15:54 Chief Complaint (Nursing): Substance Abuse Past Medical History Vital Signs: Last Vital Signs Temp 98.4 F 10/30/17 18:37 Pulse 86 10/30/17 18:37 Resp 18 10/30/17 18:37 BP 134/74 10/30/17 18:37 Pulse Ox 99 10/30/17 18:37 - Medical History PMH: Anemia (iron deficiency), Anxiety, Arthritis, Asthma, Benign Prostatic Hyperplasia, Bipolar Disorder, Bronchitis, CAD, CHF, COPD, Depression, Diabetes , Diverticulitis, Emphysema, Hepatitis (PATIENT STATED HE HAS HEPATITIS BUT COULD NOT RECALL WHICH ONE), HTN, Hypercholesterolemia, Hyperlipidemia, Hypothyroidism, Migraine, Pancreatitis, Pneumonia, Seizures, Sleep Apnea Denies: HIV, Chronic Kidney Disease, Sexually Transmitted Disease Surgical History: CABG ((quadruple bypass) 2010), Coronary Stent - [facility] Procedures ALCOHOL DETOXIFICATION (03/12/15) CORONAR ARTERIOGR-2 CATH (07/24/15) CORONARY ARTERY STENT INSERTION [id number] (07/24/15) DETOXIFICATION SERVICES FOR SUBSTANCE ABUSE TREATMENT (12/06/16) ESOPHAGOGASTRODUODENOSCOPY [EGD] W/CLOSED BIOPSY (05/21/13) EXCISION OF DESCENDING COLON, ENDO, DIAGN (06/01/17) EXCISION OF STOMACH, ENDO, DIAGN (06/01/17) GROUP PSYCHOTHERAPY (11/19/16) INDIVID PSYCHOTHERAP NEC (11/04/14) INDIVIDUAL PSYCHOTHERAPY, BEHAVIORAL (01/17/16) INDIVIDUAL PSYCHOTHERAPY, COGNITIVE-BEHAVIORAL (11/19/16) INDIVIDUAL PSYCHOTHERAPY, SUPPORTIVE (10/02/16) INSERTION OF ONE VASCULAR STENT (07/24/15) IRRIGATION OF EAR (05/23/15) LEFT HEART CARDIAC CATH (07/19/15) LT HEART ANGIOCARDIOGRAM (07/19/15) OTHER GROUP THERAPY (11/04/14) PACKED CELL TRANSFUSION (05/21/13) PERCUTANEOUS TRANSLUMINAL CORONARY ANGIOPLASTY [PTCA] (07/24/15) PROCEDURE ON SINGLE VESSEL (07/24/15) PSYCHIAT DRUG THERAP NEC (11/04/14) RT HEART ANGIOCARDIOGRAM (07/22/15) RT HEART CARDIAC CATH (07/22/15) VACCINATION NEC (09/28/14) Family History: States: Unknown Family Hx - Social History Hx Tobacco Use: Yes Hx Alcohol Use: Yes Hx Substance Use: Yes - Immunization History Hx Tetanus Toxoid Vaccination: Yes Hx Influenza Vaccination: Yes Hx Pneumococcal Vaccination: Yes Review Of Systems Constitutional: Negative for: Fever, Chills Cardiovascular: Negative for: Chest Pain Respiratory: Negative for: Cough, Shortness of Breath, SOB with Excertion, Wheezing Gastrointestinal: Negative for: Nausea, Vomiting, Abdominal Pain, Diarrhea, Constipation Musculoskeletal: Negative for: Neck Pain Neurological: Negative for: Headache Psych: Negative for: Depression, Suicidal ideation Physical Exam - Physical Exam Appears: Well, Non-toxic, No Acute Distress, Other (smells of alcohol) Skin: Normal Color, Warm, Dry Head: Atraumatic, Normacephalic Eye(s): bilateral: Normal Inspection, PERRL, EOMI Cardiovascular: Rhythm Regular Respiratory: Normal Breath Sounds Gastrointestinal/Abdominal: Soft, No Tenderness Back: Normal Inspection Extremity: Normal ROM (x4) Neurological/Psych: Oriented x3, Normal Cranial Nerves Medical Decision Making Medical Decision Making: [id number]. Will monitor for sobriety Patient is now AAox3 and ambulating around the ED without issue. He is requesting dc. Disposition - Disposition Disposition: HOME/ ROUTINE Disposition Time: 18:36 Condition: GOOD Additional Instructions: Decrease your alcohol use. Follow-up with PMD within 2 days Forms: [facility] ([place]ian) - Clinical Impression Clinical Impression: Alcohol abuse
[2017-10-30 18:48] VITALS: BP 134/74; PULSE 86; RESP 18; TEMP 98.4; O2SAT 99
== END 2017-10-30 18:38 | disposition home or self-care (01) ==
LOC: C.ER 15:48
DX: F10.10 Alcohol abuse, uncomplicated (principal); Y90.9 Presence of alcohol in blood, level not specified

== ENCOUNTER 2017-11-08 20:45 | Inpatient (IN) | payer MEDICARE, MEDICAID ==
[2017-11-08 20:46] VITALS: BMI 29.8
--- NOTE | 2017-11-08 21:16 | C.PDOC ---
History Of Present Illness Sherif Lombardi is a 61 year old male, with a past medical history of HTN, asthma and diabetes, who was brought to the emergency department by EMS for alcohol intoxication. Per EMS, patient was found on the street inebriated. Patient states he has been drinking a lot. He denies any fever, chills, nausea or vomit. No further medical complaints. PMD: Dennys Vasquez Time Seen by Provider: 11/08/17 21:09 Chief Complaint (Nursing): Psychiatric Evaluation History Per: Patient, EMS History/Exam Limitations: no limitations Onset/Duration Of Symptoms: Days (X1) Current Symptoms Are (Timing): Still Present Suicide/Self Injury Attempted (Context): None Modifying Factor(s): Alcohol Severity: Mild Pain Scale Rating Of: 0 Involuntary Hold By: None Recent travel outside of the [place]: No Additional History Per: Patient Past Medical History Reviewed: Historical Data, Nursing Documentation, Vital Signs Vital Signs: Last Vital Signs Temp 97.9 F 11/08/17 21:01 Pulse 83 11/09/17 01:04 Resp 16 11/09/17 01:04 BP 85/54 L 11/09/17 01:04 Pulse Ox 95 11/09/17 01:04 - Medical History PMH: Anemia (iron deficiency), Anxiety, Arthritis, Asthma, Benign Prostatic Hyperplasia, Bipolar Disorder, Bronchitis, CAD, COPD, Depression, Diabetes, Diverticulitis, Emphysema, Hepatitis (PATIENT STATED HE HAS HEPATITIS BUT COULD NOT RECALL WHICH ONE), HTN, Hypercholesterolemia, Hyperlipidemia, Hypothyroidism , Migraine, Pancreatitis, Pneumonia, Seizures, Sleep Apnea Denies: CHF, HIV, Chronic Kidney Disease, Sexually Transmitted Disease Surgical History: CABG ((quadruple bypass) 2010), Coronary Stent - [facility] Procedures ALCOHOL DETOXIFICATION (03/12/15) CORONAR ARTERIOGR-2 CATH (07/24/15) CORONARY ARTERY STENT INSERTION [id number] (07/24/15) DETOXIFICATION SERVICES FOR SUBSTANCE ABUSE TREATMENT (12/06/16) ESOPHAGOGASTRODUODENOSCOPY [EGD] W/CLOSED BIOPSY (05/21/13) EXCISION OF DESCENDING COLON, ENDO, DIAGN (06/01/17) EXCISION OF STOMACH, ENDO, DIAGN (06/01/17) GROUP PSYCHOTHERAPY (11/19/16) INDIVID PSYCHOTHERAP NEC (11/04/14) INDIVIDUAL PSYCHOTHERAPY, BEHAVIORAL (01/17/16) INDIVIDUAL PSYCHOTHERAPY, COGNITIVE-BEHAVIORAL (11/19/16) INDIVIDUAL PSYCHOTHERAPY, SUPPORTIVE (10/02/16) INSERTION OF ONE VASCULAR STENT (07/24/15) IRRIGATION OF EAR (05/23/15) LEFT HEART CARDIAC CATH (07/19/15) LT HEART ANGIOCARDIOGRAM (07/19/15) OTHER GROUP THERAPY (11/04/14) PACKED CELL TRANSFUSION (05/21/13) PERCUTANEOUS TRANSLUMINAL CORONARY ANGIOPLASTY [PTCA] (07/24/15) PROCEDURE ON SINGLE VESSEL (07/24/15) PSYCHIAT DRUG THERAP NEC (11/04/14) RT HEART ANGIOCARDIOGRAM (07/22/15) RT HEART CARDIAC CATH (07/22/15) VACCINATION NEC (09/28/14) Family History: States: Unknown Family Hx - Social History Hx Tobacco Use: Yes Hx Alcohol Use: Yes Hx Substance Use: No (DENIES) - Immunization History Hx Tetanus Toxoid Vaccination: Yes Hx Influenza Vaccination: Yes Hx Pneumococcal Vaccination: Yes Review Of Systems Constitutional: Negative for: Fever, Chills ENT: Negative for: Throat Pain Cardiovascular: Negative for: Chest Pain Respiratory: Negative for: Shortness of Breath Gastrointestinal: Negative for: Nausea, Vomiting Musculoskeletal: Negative for: Back Pain Skin: Negative for: Rash Neurological: Negative for: Weakness Psych: Positive for: Depression, Other (ETOH intoxicated) Physical Exam - Physical Exam Appears: No Acute Distress Skin: Warm, Dry Head: Normacephalic Eye(s): bilateral: Normal Inspection Oral Mucosa: Moist Neck: Normal ROM, Supple Chest: Symmetrical Cardiovascular: Rhythm Regular Respiratory: No Rales, No Rhonchi, No Wheezing Gastrointestinal/Abdominal: Soft, No Tenderness, No Distention Back: Normal Inspection Extremity: Normal ROM, No Deformity Extremity: Bilateral: Atraumatic Pulses: Left Dorsalis Pedis: Normal, Right Dorsalis Pedis: Normal Neurological/Psych: Oriented x3 (awake and alert), Normal Speech, Normal Cognition Gait: Steady ED Course And Treatment - Laboratory Results Result Diagrams: 11/08/17 21:24 11/08/17 21:24 ECG: Interpreted By Me, Viewed By Me ECG Rhythm: Sinus Rhythm (76), Nonspecific Changes O2 Sat by Pulse Oximetry: 100 (RA) Pulse Ox Interpretation: Normal Progress Note: Initial Impression: ETOH abuse. Initial Plan: --Acetaminophen. --Alcohol serum. --Comp metabolic Panel. --Drug screen, urine. -- Salicylate. --CBC w/ differential. --Lactated Ringers 1,000 ml IV 1,000 mls/ hr. --1:1 Obs. --AES crisis evaluation. --Urinalysis. will need to recheck potassium level Disposition Discussed With : Anton Avlia Comment: accepted the pt on his service and took over the care at 1:49 AM Doctor Will See Patient In The: Hospital Counseled Patient/Family Regarding: Studies Performed, Diagnosis - Disposition Referrals: Dennys Vasquez MD [Primary Care Provider] - Disposition: HOSPITALIZED Disposition Time: 21:16 Condition: FAIR Forms: [facility] (Kyrgyz) - Clinical Impression Clinical Impression: Alcohol abuse, Alcohol intoxication, Depression - Scribe Statement Rene Olivares Provider Attestation: All medical record entries made by the Scribe were at my direction and personally dictated by me. I have reviewed the chart and agree that the record accurately reflects my personal performance of the history, physical exam, medical decision making, and the department course for this patient. I have also personally directed, reviewed, and agree with the discharge instructions and disposition. Decision To Admit - Pt Status Changed To: Hospital Disposition Of: Inpatient - Admit Certification Admit to Inpatient:: After my assessment, the patient will require hospitalization for at least two midnights. This is because of the severity of symptoms shown, intensity of services needed, and/or the medical risk in this patient being treated as an outpatient. - InPatient: Physician Admission Certification: I certify that this patient requires 2 or more midnights of care for the following reason:: After my assessment, the patient will require hospitalization for at least two midnights. This is because of the severity of symptoms shown, intensity of services needed, and/or the medical risk in this patient being treated as an outpatient. - . Bed Request Type: Psychiatry Admitting Physician: Anton Avila Patient Diagnosis: Alcohol abuse, Alcohol intoxication, Depression
[2017-11-08] MEDS ORDERED: Lactated Ringer's 1,000 ML IV ONE (21:17)
--- NOTE | 2017-11-08 21:19 | C.PDOC ---
History Of Present Illness Sherif Lombardi is a 61 year old male, with no past medical history, who was brought to the emergency department complaining by EMS for alcohol intoxication. Per EMS, patient was found intoxicated on the street. Patient states he has been drinking a lot. He denies any other medical complaints. PMD: Dennys Vasquez Time Seen by Provider: 11/08/17 21:09 Chief Complaint (Nursing): Psychiatric Evaluation History Per: Patient History/Exam Limitations: no limitations Onset/Duration Of Symptoms: Days (x1) Current Symptoms Are (Timing): Still Present Suicide/Self Injury Attempted (Context): None Severity: Mild Pain Scale Rating Of: 0 Past Medical History Vital Signs: Last Vital Signs Temp 97.9 F 11/08/17 21:01 Pulse 82 11/08/17 21:01 Resp 18 11/08/17 21:01 BP 99/53 L 11/08/17 21:01 Pulse Ox 100 11/08/17 21:01 - Medical History PMH: Anemia (iron deficiency), Anxiety, Arthritis, Asthma, Benign Prostatic Hyperplasia, Bipolar Disorder, Bronchitis, CAD, COPD, Depression, Diabetes, Diverticulitis, Emphysema, Hepatitis (PATIENT STATED HE HAS HEPATITIS BUT COULD NOT RECALL WHICH ONE), HTN, Hypercholesterolemia, Hyperlipidemia, Hypothyroidism , Migraine, Pancreatitis, Pneumonia, Seizures, Sleep Apnea Denies: CHF, HIV, Chronic Kidney Disease, Sexually Transmitted Disease Surgical History: CABG ((quadruple bypass) 2010), Coronary Stent - [facility] Procedures ALCOHOL DETOXIFICATION (03/12/15) CORONAR ARTERIOGR-2 CATH (07/24/15) CORONARY ARTERY STENT INSERTION [id number] (07/24/15) DETOXIFICATION SERVICES FOR SUBSTANCE ABUSE TREATMENT (12/06/16) ESOPHAGOGASTRODUODENOSCOPY [EGD] W/CLOSED BIOPSY (05/21/13) EXCISION OF DESCENDING COLON, ENDO, DIAGN (06/01/17) EXCISION OF STOMACH, ENDO, DIAGN (06/01/17) GROUP PSYCHOTHERAPY (11/19/16) INDIVID PSYCHOTHERAP NEC (11/04/14) INDIVIDUAL PSYCHOTHERAPY, BEHAVIORAL (01/17/16) INDIVIDUAL PSYCHOTHERAPY, COGNITIVE-BEHAVIORAL (11/19/16) INDIVIDUAL PSYCHOTHERAPY, SUPPORTIVE (10/02/16) INSERTION OF ONE VASCULAR STENT (07/24/15) IRRIGATION OF EAR (05/23/15) LEFT HEART CARDIAC CATH (07/19/15) LT HEART ANGIOCARDIOGRAM (07/19/15) OTHER GROUP THERAPY (11/04/14) PACKED CELL TRANSFUSION (05/21/13) PERCUTANEOUS TRANSLUMINAL CORONARY ANGIOPLASTY [PTCA] (07/24/15) PROCEDURE ON SINGLE VESSEL (07/24/15) PSYCHIAT DRUG THERAP NEC (11/04/14) RT HEART ANGIOCARDIOGRAM (07/22/15) RT HEART CARDIAC CATH (07/22/15) VACCINATION NEC (09/28/14) Family History: States: Unknown Family Hx - Social History Hx Tobacco Use: Yes Hx Alcohol Use: Yes Hx Substance Use: No (DENIES) - Immunization History Hx Tetanus Toxoid Vaccination: Yes Hx Influenza Vaccination: Yes Hx Pneumococcal Vaccination: Yes ED Course And Treatment O2 Sat by Pulse Oximetry: 100 Disposition - Disposition Referrals: Dennys Vasquez MD [Primary Care Provider] -
[2017-11-08] MEDS ORDERED: Sodium Chloride 0.9% 1,000 ML IV ONE (21:20)
[2017-11-08] MEDS ORDERED: Sodium Chloride 0.9% 1,000 ML ONE (21:24)
[2017-11-08 21:29] LABS: BASO # 0.1 K/uL (0.0-0.2); BASO % 0.9 % (0.0-2.0); EOS # 0.2 K/uL (0.0-0.7); EOS % 2.9 % (0.0-4.0); HEMOGLOBIN 10.8 g/dL (12.0-18.0); LYMPH % 25.1 % (20.0-40.0); MEAN CELL VOLUME 81.7 fL (80.0-94.0); MEAN CORPUSCULAR HEMOGLOBIN 25.9 pg (27.0-31.0); MEAN CORPUSCULAR HGB CONC 31.7 g/dL (33.0-37.0); MEAN PLATELET VOLUME 8.5 fL (7.2-11.7); MONO # 1.4 K/uL (0.0-0.8); MONO % 17.4 % (0.0-10.0); NEUT # 4.2 K/uL (1.8-7.0); NEUT % 53.7 % (50.0-75.0); RBC 4.17 Mil/uL (4.40-5.90); RED CELL DISTRIBUTION WIDTH 18.4 % (11.5-14.5); WHITE BLOOD COUNT 7.8 K/uL (4.8-10.8)
[2017-11-08 21:49] LABS: ACETAMINOPHEN < 10.0 ug/mL (10.0-30.0); ALBUMIN 3.8 g/dL (3.5-5.0); ALT/SGPT 26 U/L (21-72); AST/SGOT 29 U/L (17-59); BLOOD UREA NITROGEN 10 mg/dL (9-20); CALCIUM 8.5 mg/dl (8.6-10.4); GFR AFRICAN-AMERICAN > 60; GFR NON-AFRICAN AMERICAN 52; SALICYLATE < 1.0 mg/dL 1
[2017-11-09 00:23] LABS: SQUAMOUS EPITHIAL < 1 /hpf (0-5); URINE BILIRUBIN NEGATIVE (NEGATIVE); URINE BLOOD NEGATIVE (NEGATIVE); URINE CLARITY Clear (Clear); URINE COLOR Yellow (YELLOW); URINE GLUCOSE (UA) NORMAL (Normal); URINE LEUKOCYTE ESTERASE NEG Leu/uL (Negative); URINE NITRATE NEGATIVE (NEGATIVE); URINE PROTEIN 1+ mg/dL (NEGATIVE); URINE UROBILINOGEN NORMAL mg/dL (0.2-1.0)
[2017-11-09 00:35] LABS: BARBITURATES, UR NEGATIVE (NEGATIVE); OPIATES, UR NEGATIVE (NEGATIVE); PHENCYCLIDINE, UR NEGATIVE (NEGATIVE)
[2017-11-09 00:40] LABS: BENZODIAZEPINES, UR POSITIVE (NEGATIVE)
[2017-11-09] MEDS ORDERED: Potassium Chloride 20 mEq ER Tab PO STA (01:08)
[2017-11-09] MEDS ORDERED: Potassium Chloride 20 mEq ER Tab PO ONE (01:22)
--- NOTE | 2017-11-09 04:40 | PCM.BM ---
<Blaire Garvey - Last Filed: 11/09/17 04:39> Treatment Plan Problems - Problems identified on initial assessmt Suicidal Ideation Date Initiated: 11/09/17 Time Initiated: 04:30 Assessment reference: NA Status: Active Depression Date Initiated: 11/09/17 Time Initiated: 04:30 Assessment reference: NA Status: Active Alcohol Abuse Date Initiated: 11/09/17 Time Initiated: 04:30 Assessment reference: NA Status: Active Treatment assets and liabiliti Patient Assests: cooperative, ADL independent, negotiates basic needs, cognitively intact Patient Liabilities: physical pain, poor support system, substance abuse, medical problems - Milieu Protocol Maintain good personal hygiene: daily Encourage regular showers, daily Remind patient to perform daily oral care, daily Assist patient to perform ADL's Conduct patient checks and document Observation sheet: Q15 minutes Maintain personal safety: every shift Educate patient to report safety concerns to staff, every shift Monitor environment for contraband/sharps Medication safety: Monitor for expected outcome, potential side effects: every shift, Assess barriers to learning: every shift, Assess readiness for medication education: every shift <Amna Jansen - Last Filed: 11/11/17 10:52> Family Contact Family involvement: Famliy/SO not involved - Goals for Treatment Patient goals for treatment: "I need an outpatient program." Discharge/Continuing Care - Education Needs Education Needs: Patient Medication, Patient Coping Skills, Patient Placement options, Patient Community resources - Discharge Discharge Criteria: Tolerates medication w/o severe side effects, Free of Suicidal thoughts, No longer exhibiting s/s of withdrawal, Reduction of target symptoms Discharge to:: Home - Treatment Team Participation Discussed with Family/SO: No Was Patient/Family/SO present at Treatment Team Meeting: Yes <Venkata Lazo - Last Filed: 11/11/17 10:54> - Diagnosis (1) Depression Status: Acute Interventions: 11/11/17 10:53 * Assess/adjust medications daily and /or as needed * See patient on an individual basis 7x/week to assess symptoms of depression * Monitor for side effects & effectiveness of medications * (2) Alcohol abuse Status: Acute Interventions: 11/11/17 10:54 * Assess 7x/week regarding severity of withdrawal * Educate regarding risks, benefits, side effects and alternatives of medications * Use Motivational Interviewing for abstinence * Use CBT for relapse prevention * Medication management for withdrawal symptoms * Encourage medication assisted treatment *
[2017-11-09 05:40] VITALS: O2SAT 97
[2017-11-09] MEDS: Pantoprazole 20 mg EC Tab PO SCH (09:28)
[2017-11-09] MEDS: Multiple Vitamins Tab PO SCH (09:28)
[2017-11-09] MEDS: Metoprolol Succinate 25 mg XL Tab PO SCH (09:28)
[2017-11-09 11:46] LABS: MAGNESIUM 1.7 mg/dL (1.6-2.3)
[2017-11-09 11:58] LABS: ALB/GLOB RATIO 1.1 (1.0-2.1); ALBUMIN 3.6 g/dL (3.5-5.0); ALT/SGPT 25 U/L (21-72); AST/SGOT 22 U/L (17-59); BLOOD UREA NITROGEN 14 mg/dL (9-20); CALCIUM 7.9 mg/dl (8.6-10.4); GFR AFRICAN-AMERICAN > 60; GFR NON-AFRICAN AMERICAN > 60
--- NOTE | 2017-11-09 14:42 | PCM.PSYCH ---
Initial Psychiatric Evaluation - Initial Psychiatric Evaluation Type of Admission: Voluntary Legal Status: Capacity Chief Complaint (in patient's own words): "I have a depression and alcohol use problem" History of Present Illness and Precipitating Events: Patient was seen and evaluated, chart reviewed and discussed with the nurse. The patient is a 61yo male who was admitted for chest pain but complains of depression, suicidal ideation, and alcohol withdrawal. he is not compliant with his treatment and follow-up plan after discharge from the hospital. The patient states that he is and lives alone in an apartment in [place]. he stated yesterday he was feeling very depressed and started drinking rum. He stated that he wants to end his life because his family members are not in his life and he had had relational issues with the children's. He stated he took a handful off Topamax and gabapentin better on to end his life. He stated that he did not have any particular itself for the suicide attempt. He stated that he is feeling worthless hopeless hopeless and suicidal ideations. Currently he denied any suicidal intent or plan. He reported he had a difficulty in sleep at the nighttime. His self-esteem is low and had guilty thoughts about his behavior. He states that he has 6 children: 39yo, 29yo, 27yo, 27yo, 17yo, 16yo. He states that he is disabled and receives disability checks. He says that he has been depressed for at least 10 years and that he has been hospitalized for psych twice in [place] and [facility] but doesn't remember when. He states that he has been to detox twice in [place] and [facility] but doesn't remember when. he stated that his last admission at the [facility] was in April 2017. He reported he smokes smokes a pack of cigarettes for the past 46 years. He states that his longest sobriety was 3 months. he reported that the medication is helping him and I'll call withdrawal symptoms. CAGE questionnaire was positive. He denies having any allergies and has a past medical history of HTN and diabetes. The patient appears to have a depressed mood but appropriate affect. He is organized in his thoughts and speech and appears to be kempt. PMH: HTN, Asthma/COPD, Hypercholesterolemia, CAD, BPH Current Medications: Active Medications Generic Name Dose Route Start Last Admin Trade Name Freq PRN Reason Stop Dose Admin Aspirin 81 mg 11/09/17 10:00 11/09/17 09:28 Aspirin Chewable PO 81 mg DAILY EMILIE Administration Chlordiazepoxide 25 mg 11/09/17 08:59 Librium PO 11/13/17 09:00 Q4H PRN Alcohol Withdrawal Clonidine HCl 0.1 mg 11/09/17 08:59 Catapres PO Q4H PRN Symptoms of alcohol withdrawl Escitalopram Oxalate 5 mg 11/09/17 10:00 11/09/17 09:28 Lexapro PO 5 mg DAILY EMILIE Administration Folic Acid 1 mg 11/09/17 10:00 11/09/17 09:28 Folic Acid PO 1 mg DAILY EMILIE Administration Gabapentin 100 mg 11/09/17 10:00 11/09/17 13:02 Neurontin PO 100 mg TID EMILIE Administration Hydroxyzine HCl 25 mg 11/09/17 08:07 Atarax PO Q4H PRN Anxiety Ibuprofen 400 mg 11/09/17 08:07 Motrin Tab PO Q4H PRN Pain, Mild (1-3) Metoprolol Succinate 25 mg 11/09/17 10:00 11/09/17 09:28 Toprol Xl PO 25 mg DAILY EMILIE Administration Multivitamins 1 tab 11/09/17 10:00 11/09/17 09:28 Hexavitamin PO 1 tab DAILY EMILIE Administration Pantoprazole Sodium 20 mg 11/09/17 10:00 11/09/17 09:28 Protonix Ec Tab PO 20 mg DAILY EMILIE Administration Rosuvastatin Calcium 5 mg 11/09/17 22:00 Crestor PO HS [facility] Thiamine HCl 100 mg 11/09/17 10:00 11/09/17 09:28 Vitamin B1 Tab PO 100 mg DAILY EMILIE Administration Trazodone HCl 50 mg 11/09/17 22:00 Desyrel PO HS [facility] Past Psychiatric History - Past Psychiatric History Previous Treatment History: Inpatient Prior Professional Help: multiple hospitalization in [facility]: [facility] Duration: multiple days Explanation of prior treatment: noncompliant with the treatment after the discharge from the hospital History of Abuse: denied History of ETOH/Drug Use: please see HPI History of Family Illness: denied Pertinent Medical Hx (Current Medical&Sleep Prob, Allergies): Allergies Allergy/AdvReac Type Severity Reaction Status Date / Time No Known Allergies Allergy Verified 11/08/17 21:05 Gabapentin [Neurontin] 300 mg PO TID #90 cap 05/08/17 Topiramate [Topamax] 100 mg PO BID #60 tab 05/08/17 Aspirin [Lo-Dose Aspirin EC] 81 mg PO DAILY 11/02/17 Losartan [Cozaar] 50 mg PO DAILY 11/02/17 Folic Acid 1 mg PO DAILY #30 tab 11/03/17 Thiamine [Vitamin B1 Tab] 100 mg PO DAILY tab 11/03/17 Review of Systems - Review of Systems All systems: reviewed and no additional remarkable complaints except (please see HPI) Mental Status Examination - Personal Presentation Personal Presentation: Looks stated age, Dressed appropriate to season - Affect Affect: Constricted - Motor Activity Motor Activity: Calm - Reliability in Providing Information Reliability in Providing Information: Good - Speech Speech: Organized - Mood Mood: Depressed, Anxious - Formal Thought Process Formal Thought Process: No Impairment - Hallucinations/Delusions Hallucinations: Other (denied) Delusions: Other (denied) - Obsessions/Compulsions Obsessions: No Compulsions: No - Cognitive Functions Orientation: Person, Place, Situation, Time Sensorium: Alert Attention/Concentration: Attentive Abstract Thinking: [place] Judgement: Intact, as evidence by: Good judgement, Intact, as evidence by: Insight regarding need for hospitalization Memory: Recent intact, as evidence by: Ability to recall events of the day, Remote intact, as evidenced by: Abilit to recall sig. life events - Risk Risk: Other (he had passive suicidal ideation but no intent or plan, he denied homicidal ideation intent and plan, no access to the firearms) - Strength & Assets Inventory Strength & Assets Inventory: Intelligence, Skills, Cooperative - Limitations Limitations: Other (chronic mental illness and alcohol use problems) DSM 5 DX - DSM 5 DSM 5 Diagnosis: Major depressive disorder recurrent severe ALCOHOL USE DISORDER, SEVERE, DEPENDENCE, WITHDRAWL SYMPTOMS - Recommended/Plan of Treatment Treatment Recommendations and Plan of Treatment: Librium detox Gabapentin for augmentation Lexapro for the depression Medication benefits side effects were discussed in detail with the patient. Patient verbalized understanding. And agreed with the treatment plan. As needed meds and vitamins Attend groups and activities [place] for abstinence and CBT for relapse prevention Support and psychoeducation Consider and encourage MAT~ Refer to after care 33 min Prognosis: FAIR WITH COMPLIANCE WITH THE MEDICATION - Smoking Cessation Smoking Cessation Initiated: Yes
--- NOTE | 2017-11-10 | CP.PCM.HP ---
History of Present Illness - History of Present Illness History of Present Illness: 61 y/o with cad,htn depression and alcoholism , and he is depressed, and is admitted with depression Present on Admission - Present on Admission Any Indicators Present on Admission: No History of DVT/PE: No History of Uncontrolled Diabetes: No Urinary Catheter: No Decubitus Ulcer Present: No Review of Systems - Review of Systems Systems not reviewed;Unavailable: Psychotic - Constitutional Constitutional: Headache, Snoring - EENT Nose/Mouth/Throat: Nasal Congestion - Cardiovascular Cardiovascular: Leg Edema. absent: Acrocyanosis, Claudication - Respiratory Respiratory: Dyspnea on Exertion. absent: Dyspnea, Hemoptysis, Excessive Mucous Production, Pain with Coughing - Gastrointestinal Gastrointestinal: Belching, Bloating. absent: Diarrhea, Temesmus - Genitourinary Genitourinary: absent: Dysuria, Urinary Incontinence - Musculoskeletal Musculoskeletal: Back Pain - Integumentary Integumentary: Dry Skin - Neurological Neurological: Tremor - Psychiatric Psychiatric: Abnormal Sleep Pattern, Anhedonia, Anxiety, Behavioral Changes, Change in Appetite, Depression, Difficulty Concentrating, Mood Swings - Endocrine Endocrine: Fatigue - Hematologic/Lymphatic Hematologic: absent: Easy Bruising, Lymphadenopathy Past Patient History - Infectious Disease Hx of Infectious Diseases: None - Past Medical History & Family History Past Medical History?: Yes - Past Social History Smoking Status: Heavy Smoker > 10 Cigarettes Daily - CARDIAC Hx Circulatory Problems: Yes (PVD) Hx Congestive Heart Failure: No Hx Heart Murmur: Yes (x2) Hx Hypercholesterolemia: Yes Hx Hypertension: Yes - PULMONARY Hx Asthma: Yes Hx Bronchitis: Yes Hx Chronic Obstructive Pulmonary Disease (COPD): Yes Hx Emphysema: Yes Hx Pneumonia: Yes Hx Sleep Apnea: Yes Hx Tuberculosis: No - NEUROLOGICAL Hx Migraine: Yes Hx Seizures: Yes (ETOH related) - HEENT Hx HEENT Problems: No - RENAL Hx Chronic Kidney Disease: Yes (States recent diagnosis) - ENDOCRINE/METABOLIC Hx Diabetes Mellitus Type 2: Yes (States, "I have it but I am not on anything.") Hx Hypothyroidism: Yes - HEMATOLOGICAL/ONCOLOGICAL Hx Anemia: Yes (iron deficiency) Hx Blood Transfusions: Yes Hx Blood Transfusion Reaction: No Hx Human Immunodeficiency Virus (HIV): No Other/Comment: States, "I was recently diagnosed with "liver disease." Abdomen protuberant - INTEGUMENTARY Hx Dermatological Problems: No - MUSCULOSKELETAL/RHEUMATOLOGICAL Hx Arthritis: Yes Hx Back Pain: Yes Hx Osteoarthritis: Yes - GASTROINTESTINAL Hx Diverticulitis: Yes Hx Liver Failure: (States recently diagnosed with "liver disease" abdomen is protuberant) Hx Pancreatitis: Yes - GENITOURINARY/GYNECOLOGICAL Hx Prostate Problems: Yes (Frequency) Hx Sexually Transmitted Disorders: No - PSYCHIATRIC Hx Substance Use: Yes - SURGICAL HISTORY Hx Coronary Artery Bypass Graft: Yes ((quadruple bypass) 2010) Hx Coronary Stent: Yes - ANESTHESIA Hx Anesthesia: Yes Hx Anesthesia Reactions: No Hx Malignant Hyperthermia: No Meds Allergies/Adverse Reactions: Allergies Allergy/AdvReac Type Severity Reaction Status Date / Time No Known Allergies Allergy Verified 11/08/17 21:05 Physical Exam - Constitutional Appears: Non-toxic, No Acute Distress - Head Exam Head Exam: ATRAUMATIC, NORMAL INSPECTION, NORMOCEPHALIC - Eye Exam Eye Exam: EOMI, Normal appearance, PERRL Pupil Exam: NORMAL ACCOMODATION - ENT Exam ENT Exam: Normal Exam - Neck Exam Neck exam: Positive for: Normal Inspection - Respiratory Exam Respiratory Exam: Clear to Auscultation Bilateral, NORMAL BREATHING PATTERN - Cardiovascular Exam Cardiovascular Exam: REGULAR RHYTHM, +S1, +S2 - GI/Abdominal Exam GI & Abdominal Exam: Normal Bowel Sounds, Soft - Rectal Exam Rectal Exam: NORMAL INSPECTION - Exam Exam: NORMAL INSPECTION Bimanual exam: NORMAL BIMANUAL EXAM - Neurological Exam Neurological exam: Alert, CN II-XII Intact, Normal Gait, Oriented x3, Reflexes Normal - Psychiatric Exam Psychiatric exam: Anxious, Depressed, Flat Affect - Skin Skin Exam: Dry, Intact Results - Vital Signs Recent Vital Signs: Last Vital Signs Temp 98.1 F 11/09/17 05:00 Pulse 80 11/09/17 16:22 Resp 18 11/09/17 05:00 BP 150/80 11/09/17 16:22 Pulse Ox 97 11/09/17 05:00 - Labs Result Diagrams: 11/08/17 21:24 11/09/17 11:20 Labs: Laboratory Results - last 24 hr 11/09/17 11/09/17 11/09/17 00:15 00:15 11:20 Sodium 135 Potassium 4.3 Chloride 107 Carbon Dioxide 23 Anion Gap 10 BUN 14 Creatinine 1.1 Est GFR ( Amer) > 60 Est GFR (Non-Af Amer) > 60 Random Glucose 104 Calcium 7.9 L Magnesium Total Bilirubin 0.2 AST 22 ALT 25 Alkaline Phosphatase 52 Total Protein 6.8 Albumin 3.6 Globulin 3.2 Albumin/Globulin Ratio 1.1 Triglycerides Cholesterol LDL Cholesterol Direct HDL Cholesterol 25-OH Vitamin D Total TSH 3rd Generation Urine Color Yellow Urine Clarity Clear Urine pH 5.0 Ur Specific [place] 1.004 Urine Protein 1+ H Urine Glucose (UA) Normal Urine Ketones Negative Urine Blood Negative Urine Nitrate Negative Urine Bilirubin Negative Urine Urobilinogen Normal Ur Leukocyte Esterase Neg Urine WBC (Auto) 3 Urine RBC (Auto) 1 Ur Squamous Epith Cells < 1 Hyaline Casts 3-5 H Urine Opiates Screen Negative Urine Methadone Screen Negative Ur Barbiturates Screen Negative Ur Phencyclidine Scrn Negative Ur Amphetamines Screen Negative U Benzodiazepines Scrn Positive H U Oth Cocaine Metabols Negative U Cannabinoids Screen Negative 11/09/17 11/09/17 11:20 11:20 Sodium Potassium Chloride Carbon Dioxide Anion Gap BUN Creatinine Est GFR ( Amer) Est GFR (Non-Af Amer) Random Glucose Calcium Magnesium 1.7 Total Bilirubin AST ALT Alkaline Phosphatase Total Protein Albumin Globulin Albumin/Globulin Ratio Triglycerides 76 D Cholesterol 155 LDL Cholesterol Direct 115 HDL Cholesterol 35 25-OH Vitamin D Total 23.5 L TSH 3rd Generation 1.58 Urine Color Urine Clarity Urine pH Ur Specific [place] Urine Protein Urine Glucose (UA) Urine Ketones Urine Blood Urine Nitrate Urine Bilirubin Urine Urobilinogen Ur Leukocyte Esterase Urine WBC (Auto) Urine RBC (Auto) Ur Squamous Epith Cells Hyaline Casts Urine Opiates Screen Urine Methadone Screen Ur Barbiturates Screen Ur Phencyclidine Scrn Ur Amphetamines Screen U Benzodiazepines Scrn U Oth Cocaine Metabols U Cannabinoids Screen Assessment & Plan (1) Alcohol abuse Status: Chronic Priority: High (2) Depression Status: Acute Priority: High (3) Intractable back pain Status: Chronic (4) Hypertension Status: Chronic Priority: Low
[2017-11-10] MEDS: Metoprolol Succinate 25 mg XL Tab PO SCH (10:20)
[2017-11-10] MEDS: Multiple Vitamins Tab PO SCH (10:20)
[2017-11-10] MEDS: Pantoprazole 20 mg EC Tab PO SCH (10:20)
--- NOTE | 2017-11-10 14:57 | PCM.PYCHPN ---
Psychiatric Progress Note - Psychiatric Progress Note Patient seen today, length of contact: 15 minutes Patient Chief Complaint: I'm feeling little better. Problems Identified/Issues Discussed: Patient seen, chart reviewed, case discussed with the staff. Issues related to illness and treatment were discussed with the patient. Reported compliant with treatment with no adverse affects. Reported feeling better, still depressed and suicidal without any plan. Feels safe in the hospital. Patient was awake alert oriented 3. Medical Problems: HTN, Asthma/COPD, Hypercholesterolemia, CAD, BPH Diagnostic Results: Reviewed DSM 5 Symptoms Update: Some improvement in treatment Medication Change: No Medical Record Reviewed: Yes Mental Status Examination - Cognitive Function Orientation: Person, Place, Situation, Time Memory: Intact Attention: WNL Concentration: WNL Association: [facility] Fund of Knowledge: [facility] Decription of patient's judgement and insights: Fair - Mood Mood: Depressed - Affect Affect: Depressed - Speech Speech: Appropriate - Formal Thought Process Formal Thought Process: No Impairment - Suicidal Ideation Suicidal Ideation: Yes Plan: No plan, feels safe in the hospital. - Homicidal Ideation Homicidal Ideation: No Goal/Treatment Plan - Goal/Treatment Plan Need for Continued Stay: Remain at risks for inpatient hospitalization, Discharge may exacerbated symptoms, Severe functional impairment Progress Toward Problem(s) and Goals/Treatment Plan: Patient education. Supportive therapy. CBT for relapse prevention Motivational intervention for abstinence Continue rest of the treatment as before Estimated Date of D/C: 11/20/18 - Smoking Cessation Smoking Cessation Initiated: No
--- NOTE | 2017-11-10 23:06 | CP.PCM.PN ---
Subjective - Date & Time of Evaluation Date of Evaluation: 11/10/17 Time of Evaluation: 20:00 - Subjective Subjective: Pt seen and examined, is depressed and anxious Objective - Vital Signs/Intake and Output Vital Signs (last 24 hours): Temp Pulse Resp BP Pulse Ox 98.1 F 73 18 150/71 97 11/09/17 05:00 11/10/17 15:54 11/09/17 05:00 11/10/17 15:54 11/09/17 05:00 - Medications Medications: Current Medications Aspirin (Aspirin Chewable) 81 mg PO DAILY [facility] Last Admin: 11/10/17 10:20 Dose: 81 mg Chlordiazepoxide (Librium) 25 mg PO Q4H PRN PRN Reason: Alcohol Withdrawal Stop: 11/13/17 09:00 Clonidine HCl (Catapres) 0.1 mg PO Q4H PRN PRN Reason: Symptoms of alcohol withdrawl Escitalopram Oxalate (Lexapro) 5 mg PO DAILY [facility] Last Admin: 11/10/17 10:21 Dose: 5 mg Folic Acid (Folic Acid) 1 mg PO DAILY [facility] Last Admin: 11/10/17 10:20 Dose: 1 mg Gabapentin (Neurontin) 100 mg PO TID [facility] Last Admin: 11/10/17 17:26 Dose: 100 mg Hydroxyzine HCl (Atarax) 25 mg PO Q4H PRN PRN Reason: Anxiety Last Admin: 11/09/17 22:01 Dose: 25 mg Ibuprofen (Motrin Tab) 400 mg PO Q4H PRN PRN Reason: Pain, Mild (1-3) Metoprolol Succinate (Toprol Xl) 25 mg PO DAILY [facility] Last Admin: 11/10/17 10:20 Dose: 25 mg Multivitamins (Hexavitamin) 1 tab PO DAILY [facility] Last Admin: 11/10/17 10:20 Dose: 1 tab Pantoprazole Sodium (Protonix Ec Tab) 20 mg PO DAILY [facility] Last Admin: 11/10/17 10:20 Dose: 20 mg Rosuvastatin Calcium (Crestor) 5 mg PO HS [facility] Last Admin: 11/10/17 21:07 Dose: 5 mg Thiamine HCl (Vitamin B1 Tab) 100 mg PO DAILY [facility] Last Admin: 11/10/17 10:23 Dose: 100 mg Trazodone HCl (Desyrel) 50 mg PO HS [facility] Last Admin: 11/10/17 21:07 Dose: 50 mg - Labs Labs: 11/08/17 21:24 11/09/17 11:20 - Constitutional Appears: No Acute Distress - Head Exam Head Exam: ATRAUMATIC, NORMAL INSPECTION, NORMOCEPHALIC - Eye Exam Eye Exam: EOMI, Normal appearance, PERRL Pupil Exam: NORMAL ACCOMODATION, PERRL - Respiratory Exam Respiratory Exam: Clear to Ausculation Bilateral, NORMAL BREATHING PATTERN - Cardiovascular Exam Cardiovascular Exam: REGULAR RHYTHM, +S1, +S2. absent: Murmur - GI/Abdominal Exam GI & Abdominal Exam: Soft, Normal Bowel Sounds. absent: Tenderness Assessment and Plan (1) Alcohol abuse Status: Chronic (2) Depression Status: Acute (3) Intractable back pain Status: Chronic (4) Hypertension Status: Chronic
--- NOTE | 2017-11-11 09:19 | CARD ---
APPROVED REPORT EKG Measurement Heart [id number] <Conclusion> Normal sinus rhythm Possible Left atrial enlargement Septal infarct, age undetermined Abnormal ECG
[2017-11-11] MEDS: Pantoprazole 20 mg EC Tab PO SCH (09:50)
[2017-11-11] MEDS: Metoprolol Succinate 25 mg XL Tab PO SCH (09:50)
[2017-11-11] MEDS: Multiple Vitamins Tab PO SCH (09:50)
--- NOTE | 2017-11-11 10:43 | PCM.PYCHPN ---
Psychiatric Progress Note - Psychiatric Progress Note Patient seen today, length of contact: 15 minutes Patient Chief Complaint: i am feeling depressed. Problems Identified/Issues Discussed: Patient seen and evaluated, chart reviewed and discussed with the nurse. He reports depressed mood and feelings of hopelessness and helplessness. He still reports suicidal ideation without any plan. Patient remained isolated, confined and withdrawn. Patient is compliant with medications and denies any side effects. Symptoms are improving but need more time to stabilize. Support and psychoeducation given. Medication Change: No Medical Record Reviewed: Yes Mental Status Examination - Cognitive Function Orientation: Person, Place, Situation, Time Memory: Intact Attention: WNL Concentration: Poor Association: WNL Fund of Knowledge: Poor - Mood Mood: Depressed, Anxious - Affect Affect: Depressed - Speech Speech: Appropriate, Soft - Formal Thought Process Formal Thought Process: No Impairment - Suicidal Ideation Suicidal Ideation: No - Homicidal Ideation Homicidal Ideation: No Goal/Treatment Plan - Goal/Treatment Plan Need for Continued Stay: Remain at risks for inpatient hospitalization, Discharge may exacerbated symptoms, Severe functional impairment Progress Toward Problem(s) and Goals/Treatment Plan: Bipolar disorder mixed severe Alcohol use severe Alcohol withdrawal Librium detox Gabapentin for augmentation Lexapro for the depression Start Topamax Medication benefits side effects were discussed in detail with the patient. Patient verbalized understanding. And agreed with the treatment plan. As needed meds and vitamins Attend groups and activities [place] for abstinence and CBT for relapse prevention Support and psychoeducation Consider and encourage MAT~ Refer to after care Estimated Date of D/C: 11/20/18
--- NOTE | 2017-11-11 23:20 | CP.PCM.PN ---
Subjective - Date & Time of Evaluation Date of Evaluation: 11/11/17 Time of Evaluation: 19:00 - Subjective Subjective: Pt seen and examined, afebrile, no clinincal changes, is feeling better Objective - Vital Signs/Intake and Output Vital Signs (last 24 hours): Temp Pulse Resp BP Pulse Ox 97.9 F 62 19 147/70 97 11/11/17 06:32 11/11/17 15:54 11/11/17 06:32 11/11/17 15:54 11/09/17 05:00 - Medications Medications: Current Medications Aspirin (Aspirin Chewable) 81 mg PO DAILY [facility] Last Admin: 11/11/17 10:09 Dose: 81 mg Chlordiazepoxide (Librium) 25 mg PO Q4H PRN PRN Reason: Alcohol Withdrawal Stop: 11/13/17 09:00 Clonidine HCl (Catapres) 0.1 mg PO Q4H PRN PRN Reason: Symptoms of alcohol withdrawl Escitalopram Oxalate (Lexapro) 5 mg PO DAILY [facility] Last Admin: 11/11/17 09:50 Dose: 5 mg Folic Acid (Folic Acid) 1 mg PO DAILY [facility] Last Admin: 11/11/17 09:50 Dose: 1 mg Gabapentin (Neurontin) 100 mg PO TID [facility] Last Admin: 11/11/17 17:08 Dose: 100 mg Hydroxyzine HCl (Atarax) 25 mg PO Q4H PRN PRN Reason: Anxiety Last Admin: 11/09/17 22:01 Dose: 25 mg Ibuprofen (Motrin Tab) 400 mg PO Q4H PRN PRN Reason: Pain, Mild (1-3) Metoprolol Succinate (Toprol Xl) 25 mg PO DAILY [facility] Last Admin: 11/11/17 09:50 Dose: 25 mg Multivitamins (Hexavitamin) 1 tab PO DAILY [facility] Last Admin: 11/11/17 09:50 Dose: 1 tab Pantoprazole Sodium (Protonix Ec Tab) 20 mg PO DAILY [facility] Last Admin: 11/11/17 09:50 Dose: 20 mg Rosuvastatin Calcium (Crestor) 5 mg PO HS [facility] Last Admin: 11/11/17 21:10 Dose: 5 mg Thiamine HCl (Vitamin B1 Tab) 100 mg PO DAILY [facility] Last Admin: 11/11/17 09:51 Dose: 100 mg Trazodone HCl (Desyrel) 50 mg PO HS [facility] Last Admin: 11/11/17 21:10 Dose: 50 mg - Labs Labs: 11/08/17 21:24 11/09/17 11:20 - Constitutional Appears: Well - Head Exam Head Exam: ATRAUMATIC, NORMAL INSPECTION, NORMOCEPHALIC - Eye Exam Eye Exam: EOMI, Normal appearance, PERRL Pupil Exam: NORMAL ACCOMODATION, PERRL - Respiratory Exam Respiratory Exam: Clear to Ausculation Bilateral, NORMAL BREATHING PATTERN - Cardiovascular Exam Cardiovascular Exam: REGULAR RHYTHM, +S1, +S2. absent: Murmur - GI/Abdominal Exam GI & Abdominal Exam: Soft, Normal Bowel Sounds. absent: Tenderness Assessment and Plan (1) Alcohol abuse Status: Chronic (2) Depression Status: Acute (3) Intractable back pain Status: Chronic (4) Hypertension Status: Chronic
[2017-11-12] MEDS: Multiple Vitamins Tab PO SCH (09:05)
[2017-11-12] MEDS: Pantoprazole 20 mg EC Tab PO SCH (09:09)
[2017-11-12] MEDS: Metoprolol Succinate 25 mg XL Tab PO SCH (09:09)
--- NOTE | 2017-11-12 09:46 | PCM.PYCHPN ---
Psychiatric Progress Note - Psychiatric Progress Note Patient seen today, length of contact: 15 minutes Patient Chief Complaint: I am feeling irritable Problems Identified/Issues Discussed: Patient seen and evaluated, chart reviewed and discussed with the nurse. Patient reports racing of thoughts and flight of ideas. He remained isolated, confined and withdrawn. Patient reports irritability and agitation. He also reports depressed mood and poor sleep. Patient is compliant with medications and denies any side effects. Symptoms are improving but need more time to stabilize. Support and psychoeducation given. Medication Change: Yes (increase lexapro, increase trazodone) Medical Record Reviewed: Yes Mental Status Examination - Cognitive Function Orientation: Person, Place, Situation, Time Memory: Intact Attention: WNL Concentration: WNL Association: WNL Fund of Knowledge: WNL - Mood Mood: Depressed - Affect Affect: Depressed - Speech Speech: Appropriate - Formal Thought Process Formal Thought Process: No Impairment - Suicidal Ideation Suicidal Ideation: Yes - Homicidal Ideation Homicidal Ideation: No Goal/Treatment Plan - Goal/Treatment Plan Need for Continued Stay: Remain at risks for inpatient hospitalization, Discharge may exacerbated symptoms, Severe functional impairment Progress Toward Problem(s) and Goals/Treatment Plan: Bipolar disorder mixed severe Alcohol use severe Alcohol withdrawal Librium detox Gabapentin for augmentation Lexapro for the depression Start Topamax Medication benefits side effects were discussed in detail with the patient. Patient verbalized understanding. And agreed with the treatment plan. As needed meds and vitamins Attend groups and activities [place] for abstinence and CBT for relapse prevention Support and psychoeducation Consider and encourage MAT~ Refer to after care Estimated Date of D/C: 11/20/18
--- NOTE | 2017-11-12 19:35 | CP.PCM.PN ---
Subjective - Date & Time of Evaluation Date of Evaluation: 11/12/17 Time of Evaluation: 18:00 - Subjective Subjective: Pt seen and evaluated at bedside, Objective - Vital Signs/Intake and Output Vital Signs (last 24 hours): Temp Pulse Resp BP Pulse Ox 98.3 F 65 20 116/61 97 11/12/17 06:19 11/12/17 15:47 11/12/17 06:19 11/12/17 15:47 11/09/17 05:00 - Medications Medications: Current Medications Aspirin (Aspirin Chewable) 81 mg PO DAILY [facility] Last Admin: 11/12/17 09:09 Dose: 81 mg Chlordiazepoxide (Librium) 25 mg PO Q4H PRN PRN Reason: Alcohol Withdrawal Stop: 11/13/17 09:00 Clonidine HCl (Catapres) 0.1 mg PO Q4H PRN PRN Reason: Symptoms of alcohol withdrawl Escitalopram Oxalate (Lexapro) 10 mg PO DAILY [facility] Folic Acid (Folic Acid) 1 mg PO DAILY [facility] Last Admin: 11/12/17 09:05 Dose: 1 mg Gabapentin (Neurontin) 300 mg PO TID [facility] Last Admin: 11/12/17 17:18 Dose: 300 mg Hydroxyzine HCl (Atarax) 25 mg PO Q4H PRN PRN Reason: Anxiety Last Admin: 11/09/17 22:01 Dose: 25 mg Ibuprofen (Motrin Tab) 400 mg PO Q4H PRN PRN Reason: Pain, Mild (1-3) Metoprolol Succinate (Toprol Xl) 25 mg PO DAILY [facility] Last Admin: 11/12/17 09:09 Dose: 25 mg Multivitamins (Hexavitamin) 1 tab PO DAILY [facility] Last Admin: 11/12/17 09:05 Dose: 1 tab Pantoprazole Sodium (Protonix Ec Tab) 20 mg PO DAILY [facility] Last Admin: 11/12/17 09:09 Dose: 20 mg Rosuvastatin Calcium (Crestor) 5 mg PO HS [facility] Last Admin: 11/11/17 21:10 Dose: 5 mg Thiamine HCl (Vitamin B1 Tab) 100 mg PO DAILY [facility] Last Admin: 11/12/17 09:05 Dose: 100 mg Trazodone HCl (Desyrel) 100 mg PO HS [facility] - Labs Labs: 11/08/17 21:24 11/09/17 11:20 Assessment and Plan (1) Alcohol abuse Status: Chronic (2) Depression Status: Acute (3) Intractable back pain Status: Chronic (4) Hypertension Status: Chronic
[2017-11-13] MEDS: Metoprolol Succinate 25 mg XL Tab PO SCH (09:09)
[2017-11-13] MEDS: Multiple Vitamins Tab PO SCH (09:09)
[2017-11-13] MEDS: Pantoprazole 20 mg EC Tab PO SCH (09:09)
--- NOTE | 2017-11-13 12:51 | PCM.PYCHPN ---
Psychiatric Progress Note - Psychiatric Progress Note Patient seen today, length of contact: 15 minutes Patient Chief Complaint: I am feeling very irritable.' Problems Identified/Issues Discussed: Patient seen and evaluated, chart reviewed and discussed with the nurse. Patient remained irritable and agitated. He still reports racing of thoughts and flight of ideas. He remained isolated, confined and withdrawn. Patient reports withdrawal symptoms including headaches, anxiety and sweating. He reports depressed mood and remained isolated and withdrawn. Patient is compliant with medications and denies any side effects. Symptoms are improving but need more time to stabilize. Support and psychoeducation given. Medication Change: Yes (Start Topamax) Medical Record Reviewed: Yes Mental Status Examination - Cognitive Function Orientation: Person, Place, Situation, Time Memory: Intact Attention: WNL Concentration: Poor Association: WNL Fund of Knowledge: Poor - Mood Mood: Depressed, Anxious - Affect Affect: Constricted, Depressed - Speech Speech: Appropriate - Formal Thought Process Formal Thought Process: Circumstantial - Suicidal Ideation Suicidal Ideation: No - Homicidal Ideation Homicidal Ideation: No Goal/Treatment Plan - Goal/Treatment Plan Need for Continued Stay: Remain at risks for inpatient hospitalization, Discharge may exacerbated symptoms, Severe functional impairment Progress Toward Problem(s) and Goals/Treatment Plan: Bipolar disorder mixed severe Alcohol use severe Alcohol withdrawal Librium detox Gabapentin for augmentation Lexapro for the depression Start Topamax Medication benefits side effects were discussed in detail with the patient. Patient verbalized understanding. And agreed with the treatment plan. As needed meds and vitamins Attend groups and activities [place] for abstinence and CBT for relapse prevention Support and psychoeducation Consider and encourage MAT~ Refer to after care Estimated Date of D/C: 11/20/18 - Smoking Cessation Smoking Cessation Initiated: No
--- NOTE | 2017-11-13 23:05 | CP.PCM.PN ---
Subjective - Date & Time of Evaluation Date of Evaluation: 11/13/17 Time of Evaluation: 20:10 - Subjective Subjective: Pt seen & evaluated at bedside, afebrile, no new clinincal changes remains on medical management Objective - Vital Signs/Intake and Output Vital Signs (last 24 hours): Temp Pulse Resp BP Pulse Ox 98.3 F 65 20 133/68 97 11/13/17 06:28 11/13/17 16:17 11/13/17 06:28 11/13/17 16:17 11/09/17 05:00 - Medications Medications: Current Medications Aspirin (Aspirin Chewable) 81 mg PO DAILY [facility] Last Admin: 11/13/17 09:09 Dose: 81 mg Clonidine HCl (Catapres) 0.1 mg PO Q4H PRN PRN Reason: Symptoms of alcohol withdrawl Escitalopram Oxalate (Lexapro) 10 mg PO DAILY [facility] Last Admin: 11/13/17 09:36 Dose: 10 mg Folic Acid (Folic Acid) 1 mg PO DAILY [facility] Last Admin: 11/13/17 09:09 Dose: 1 mg Gabapentin (Neurontin) 300 mg PO TID [facility] Last Admin: 11/13/17 17:18 Dose: 300 mg Hydroxyzine HCl (Atarax) 25 mg PO Q4H PRN PRN Reason: Anxiety Last Admin: 11/09/17 22:01 Dose: 25 mg Ibuprofen (Motrin Tab) 400 mg PO Q4H PRN PRN Reason: Pain, Mild (1-3) Losartan Potassium (Cozaar) 50 mg PO DAILY [facility] Metoprolol Succinate (Toprol Xl) 25 mg PO DAILY [facility] Last Admin: 11/13/17 09:09 Dose: 25 mg Multivitamins (Hexavitamin) 1 tab PO DAILY [facility] Last Admin: 11/13/17 09:09 Dose: 1 tab Pantoprazole Sodium (Protonix Ec Tab) 20 mg PO DAILY [facility] Last Admin: 11/13/17 09:09 Dose: 20 mg Rosuvastatin Calcium (Crestor) 5 mg PO HS [facility] Last Admin: 11/13/17 21:10 Dose: 5 mg Thiamine HCl (Vitamin B1 Tab) 100 mg PO DAILY [facility] Last Admin: 11/13/17 09:09 Dose: 100 mg Topiramate (Topamax) 25 mg PO BID [facility] Trazodone HCl (Desyrel) 100 mg PO HS [facility] Last Admin: 12/29/17 21:10 Dose: 100 mg - Labs Labs: 11/08/17 21:24 11/09/17 11:20 - Constitutional Appears: No Acute Distress - Head Exam Head Exam: ATRAUMATIC, NORMAL INSPECTION, NORMOCEPHALIC - Eye Exam Eye Exam: EOMI, Normal appearance, PERRL Pupil Exam: NORMAL ACCOMODATION, PERRL - Respiratory Exam Respiratory Exam: Clear to Ausculation Bilateral, NORMAL BREATHING PATTERN - Cardiovascular Exam Cardiovascular Exam: REGULAR RHYTHM, +S1, +S2. absent: Murmur - GI/Abdominal Exam GI & Abdominal Exam: Soft, Normal Bowel Sounds. absent: Tenderness - Neurological Exam Neurological Exam: Alert, Awake, CN II-XII Intact, Normal Gait, Oriented x3 - Psychiatric Exam Psychiatric exam: Normal Affect, Normal Mood Assessment and Plan (1) Alcohol abuse Status: Chronic (2) Depression Status: Acute (3) Intractable back pain Status: Chronic (4) Hypertension Status: Chronic
[2017-11-14] MEDS: Multiple Vitamins Tab PO SCH (09:46)
[2017-11-14] MEDS: Pantoprazole 20 mg EC Tab PO SCH (09:47)
[2017-11-14] MEDS: Metoprolol Succinate 25 mg XL Tab PO SCH (09:52)
--- NOTE | 2017-11-14 14:01 | CP.PCM.PN ---
Subjective - Date & Time of Evaluation Date of Evaluation: 11/14/17 Time of Evaluation: 14:30 - Subjective Subjective: Pt seen and evaluated at bedside Objective - Vital Signs/Intake and Output Vital Signs (last 24 hours): Temp Pulse Resp BP Pulse Ox 98.4 F 62 20 103/62 97 11/14/17 06:48 11/14/17 06:48 11/14/17 06:48 11/14/17 06:48 11/09/17 05:00 - Medications Medications: Current Medications Aspirin (Aspirin Chewable) 81 mg PO DAILY [facility] Last Admin: 11/14/17 09:45 Dose: 81 mg Clonidine HCl (Catapres) 0.1 mg PO Q4H PRN PRN Reason: Symptoms of alcohol withdrawl Escitalopram Oxalate (Lexapro) 10 mg PO DAILY [facility] Last Admin: 11/14/17 09:47 Dose: 10 mg Folic Acid (Folic Acid) 1 mg PO DAILY [facility] Last Admin: 11/14/17 09:46 Dose: 1 mg Gabapentin (Neurontin) 300 mg PO TID [facility] Last Admin: 11/14/17 09:45 Dose: 300 mg Hydroxyzine HCl (Atarax) 25 mg PO Q4H PRN PRN Reason: Anxiety Last Admin: 11/09/17 22:01 Dose: 25 mg Ibuprofen (Motrin Tab) 400 mg PO Q4H PRN PRN Reason: Pain, Mild (1-3) Losartan Potassium (Cozaar) 50 mg PO DAILY [facility] Last Admin: 11/14/17 09:52 Dose: 50 mg Metoprolol Succinate (Toprol Xl) 25 mg PO DAILY [facility] Last Admin: 11/14/17 09:52 Dose: 25 mg Multivitamins (Hexavitamin) 1 tab PO DAILY [facility] Last Admin: 11/14/17 09:46 Dose: 1 tab Pantoprazole Sodium (Protonix Ec Tab) 20 mg PO DAILY [facility] Last Admin: 11/14/17 09:47 Dose: 20 mg Rosuvastatin Calcium (Crestor) 5 mg PO HS [facility] Last Admin: 11/13/17 21:10 Dose: 5 mg Thiamine HCl (Vitamin B1 Tab) 100 mg PO DAILY [facility] Last Admin: 11/14/17 09:46 Dose: 100 mg Topiramate (Topamax) 25 mg PO BID [facility] Last Admin: 11/14/17 09:50 Dose: 25 mg Trazodone HCl (Desyrel) 100 mg PO HS [facility] Last Admin: 11/13/17 21:10 Dose: 100 mg - Labs Labs: 11/08/17 21:24 11/09/17 11:20 Assessment and Plan (1) Alcohol abuse Status: Chronic (2) Depression Status: Acute (3) Intractable back pain Status: Chronic (4) Hypertension Status: Chronic
[2017-11-15] MEDS: Multiple Vitamins Tab PO SCH (10:00)
[2017-11-15] MEDS: Pantoprazole 20 mg EC Tab PO SCH (10:00)
[2017-11-15] MEDS: Metoprolol Succinate 25 mg XL Tab PO SCH (10:01)
--- NOTE | 2017-11-15 21:43 | CP.PCM.PN ---
Subjective - Date & Time of Evaluation Date of Evaluation: 11/15/17 Time of Evaluation: 10:25 - Subjective Subjective: Pt seen and evalauted, B.P is stable, cut down Coozaar dose Objective - Vital Signs/Intake and Output Vital Signs (last 24 hours): Temp Pulse Resp BP Pulse Ox 98.3 F 61 20 127/65 97 11/15/17 06:47 11/15/17 16:36 11/15/17 06:47 11/15/17 16:36 11/09/17 05:00 - Medications Medications: Current Medications Aspirin (Aspirin Chewable) 81 mg PO DAILY [facility] Last Admin: 11/15/17 10:01 Dose: 81 mg Clonidine HCl (Catapres) 0.1 mg PO Q4H PRN PRN Reason: Symptoms of alcohol withdrawl Escitalopram Oxalate (Lexapro) 10 mg PO DAILY [facility] Last Admin: 11/15/17 10:00 Dose: 10 mg Folic Acid (Folic Acid) 1 mg PO DAILY [facility] Last Admin: 11/15/17 10:00 Dose: 1 mg Gabapentin (Neurontin) 400 mg PO TID [facility] Last Admin: 11/15/17 17:55 Dose: 400 mg Hydroxyzine HCl (Atarax) 25 mg PO Q4H PRN PRN Reason: Anxiety Last Admin: 11/15/17 17:56 Dose: 25 mg Ibuprofen (Motrin Tab) 400 mg PO Q4H PRN PRN Reason: Pain, Mild (1-3) Losartan Potassium (Cozaar) 25 mg PO DAILY [facility] Last Admin: 11/15/17 10:05 Dose: 25 mg Metoprolol Succinate (Toprol Xl) 25 mg PO DAILY [facility] Last Admin: 11/15/17 10:01 Dose: 25 mg Multivitamins (Hexavitamin) 1 tab PO DAILY [facility] Last Admin: 11/15/17 10:00 Dose: 1 tab Pantoprazole Sodium (Protonix Ec Tab) 20 mg PO DAILY [facility] Last Admin: 11/15/17 10:00 Dose: 20 mg Rosuvastatin Calcium (Crestor) 5 mg PO HS [facility] Last Admin: 11/14/17 21:28 Dose: 5 mg Thiamine HCl (Vitamin B1 Tab) 100 mg PO DAILY [facility] Last Admin: 11/15/17 10:00 Dose: 100 mg Topiramate (Topamax) 25 mg PO BID [facility] Last Admin: 11/15/17 17:55 Dose: 25 mg Trazodone HCl (Desyrel) 100 mg PO HS [facility] Last Admin: 11/14/17 21:28 Dose: 100 mg - Labs Labs: 11/08/17 21:24 11/09/17 11:20 - Constitutional Appears: No Acute Distress - Head Exam Head Exam: ATRAUMATIC, NORMAL INSPECTION, NORMOCEPHALIC - Eye Exam Eye Exam: EOMI, Normal appearance, PERRL Pupil Exam: NORMAL ACCOMODATION, PERRL - ENT Exam ENT Exam: Mucous Membranes Moist, Normal Exam - Neck Exam Neck Exam: Full ROM, Normal Inspection. absent: Lymphadenopathy - Respiratory Exam Respiratory Exam: Clear to Ausculation Bilateral - Cardiovascular Exam Cardiovascular Exam: REGULAR RHYTHM, +S1, +S2 - GI/Abdominal Exam GI & Abdominal Exam: Soft, Normal Bowel Sounds. absent: Tenderness - Rectal Exam Rectal Exam: Deferred Assessment and Plan (1) Alcohol abuse Status: Chronic (2) Depression Status: Acute (3) Intractable back pain Status: Chronic (4) Hypertension Status: Chronic
[2017-11-16 08:47] LABS: HEMOGLOBIN 12.3 g/dL (12.0-18.0); MEAN CELL VOLUME 81.7 fL (80.0-94.0); MEAN CORPUSCULAR HEMOGLOBIN 26.2 pg (27.0-31.0); MEAN CORPUSCULAR HGB CONC 32.1 g/dL (33.0-37.0); MEAN PLATELET VOLUME 8.6 fL (7.2-11.7); RBC 4.7 Mil/uL (4.40-5.90); RED CELL DISTRIBUTION WIDTH 17.9 % (11.5-14.5)
[2017-11-16 09:05] LABS: BLOOD UREA NITROGEN 17 mg/dL (9-20); CALCIUM 8.3 mg/dl (8.6-10.4); GFR AFRICAN-AMERICAN > 60; GFR NON-AFRICAN AMERICAN > 60
[2017-11-16] MEDS: Metoprolol Succinate 25 mg XL Tab PO SCH (10:01)
[2017-11-16] MEDS: Pantoprazole 20 mg EC Tab PO SCH (10:01)
[2017-11-16] MEDS: Multiple Vitamins Tab PO SCH (10:01)
--- NOTE | 2017-11-16 20:08 | PCM.PYCHPN ---
Psychiatric Progress Note - Psychiatric Progress Note Patient seen today, length of contact: 15 minutes Patient Chief Complaint: I am feeling very irritable.' Problems Identified/Issues Discussed: Patient seen and evaluated, chart reviewed and discussed with the nurse. Patient reports some improvement in his mood. However, he reports of stomach flu and reports multiple episodes of vomiting and diarrhea. He reports irritability and agitation. He remained isolated, confined and withdrawn. Patient is compliant with medications and denies any side effects. Symptoms are improving but need more time to stabilize. Support and psychoeducation given. Medication Change: Yes (start emodium and zofran) Medical Record Reviewed: Yes Mental Status Examination - Cognitive Function Orientation: Person, Place, Situation, Time Memory: Intact Attention: WNL Concentration: Poor Association: WNL Fund of Knowledge: Poor - Mood Mood: Depressed, Anxious - Affect Affect: Constricted, Depressed - Speech Speech: Appropriate - Formal Thought Process Formal Thought Process: Circumstantial - Suicidal Ideation Suicidal Ideation: No - Homicidal Ideation Homicidal Ideation: No Goal/Treatment Plan - Goal/Treatment Plan Need for Continued Stay: Remain at risks for inpatient hospitalization, Discharge may exacerbated symptoms, Severe functional impairment Progress Toward Problem(s) and Goals/Treatment Plan: Bipolar disorder mixed severe Alcohol use severe Alcohol withdrawal Librium detox Gabapentin for augmentation Lexapro for the depression Start Topamax Medication benefits side effects were discussed in detail with the patient. Patient verbalized understanding. And agreed with the treatment plan. As needed meds and vitamins Attend groups and activities [place] for abstinence and CBT for relapse prevention Support and psychoeducation Consider and encourage MAT~ Refer to after care Estimated Date of D/C: 11/20/18 - Smoking Cessation Smoking Cessation Initiated: No
--- NOTE | 2017-11-16 21:50 | CP.PCM.PN ---
Subjective - Date & Time of Evaluation Date of Evaluation: 11/16/17 Time of Evaluation: 18:45 - Subjective Subjective: Patient remained irritable and agitated. He still reports racing of thoughts and flight of ideas. He remained isolated, confined and withdrawn. Patient reports withdrawal symptoms including headaches, anxiety and sweating. He reports depressed mood and remained isolated and withdrawn. Objective - Vital Signs/Intake and Output Vital Signs (last 24 hours): Temp Pulse Resp BP Pulse Ox 98.0 F 65 20 149/71 97 11/16/17 10:24 11/16/17 17:02 11/16/17 10:24 11/16/17 17:02 11/09/17 05:00 - Medications Medications: Current Medications Aspirin (Aspirin Chewable) 81 mg PO DAILY [facility] Last Admin: 11/16/17 10:01 Dose: 81 mg Clonidine HCl (Catapres) 0.1 mg PO Q4H PRN PRN Reason: Symptoms of alcohol withdrawl Escitalopram Oxalate (Lexapro) 10 mg PO DAILY [facility] Last Admin: 11/16/17 10:01 Dose: 10 mg Folic Acid (Folic Acid) 1 mg PO DAILY [facility] Last Admin: 11/16/17 10:01 Dose: 1 mg Gabapentin (Neurontin) 400 mg PO TID [facility] Last Admin: 11/16/17 17:30 Dose: 400 mg Hydroxyzine HCl (Atarax) 25 mg PO Q4H PRN PRN Reason: Anxiety Last Admin: 11/16/17 21:19 Dose: 25 mg Ibuprofen (Motrin Tab) 400 mg PO Q4H PRN PRN Reason: Pain, Mild (1-3) Losartan Potassium (Cozaar) 25 mg PO DAILY [facility] Last Admin: 11/16/17 10:01 Dose: 25 mg Metoprolol Succinate (Toprol Xl) 25 mg PO DAILY [facility] Last Admin: 11/16/17 10:01 Dose: 25 mg Multivitamins (Hexavitamin) 1 tab PO DAILY [facility] Last Admin: 11/16/17 10:01 Dose: 1 tab Pantoprazole Sodium (Protonix Ec Tab) 20 mg PO DAILY [facility] Last Admin: 11/16/17 10:01 Dose: 20 mg Rosuvastatin Calcium (Crestor) 5 mg PO HS [facility] Last Admin: 11/16/17 21:19 Dose: 5 mg Thiamine HCl (Vitamin B1 Tab) 100 mg PO DAILY [facility] Last Admin: 01/01/18 10:01 Dose: 100 mg Topiramate (Topamax) 25 mg PO BID [facility] Last Admin: 11/16/17 17:30 Dose: 25 mg Trazodone HCl (Desyrel) 100 mg PO HS [facility] Last Admin: 11/16/17 21:19 Dose: 100 mg - Labs Labs: 11/16/17 08:44 11/16/17 08:44 - Constitutional Appears: No Acute Distress - Head Exam Head Exam: ATRAUMATIC, NORMAL INSPECTION, NORMOCEPHALIC - Eye Exam Eye Exam: EOMI, Normal appearance, PERRL Pupil Exam: NORMAL ACCOMODATION, PERRL - Respiratory Exam Respiratory Exam: Clear to Ausculation Bilateral, NORMAL BREATHING PATTERN - Cardiovascular Exam Cardiovascular Exam: REGULAR RHYTHM, +S1, +S2. absent: Murmur - GI/Abdominal Exam GI & Abdominal Exam: Soft, Normal Bowel Sounds. absent: Tenderness - Psychiatric Exam Psychiatric exam: Normal Affect, Normal Mood - Skin Skin Exam: Dry, Intact, Normal Color, Warm Assessment and Plan (1) Alcohol abuse Status: Chronic (2) Depression Status: Acute (3) Intractable back pain Status: Chronic (4) Hypertension Status: Chronic
--- NOTE | 2017-11-17 07:16 | PCM.PYCHPN ---
Psychiatric Progress Note - Psychiatric Progress Note Patient seen today, length of contact: 15 minutes Patient Chief Complaint: I HAVE NO FRIENDS, ALCOHOL IS THE ENEMY Problems Identified/Issues Discussed: [facility] Medical Problems: NOTHING ACUTE Diagnostic Results: REVIEWED DSM 5 Symptoms Update: ANHEDONIA ANERGY AVOLITION Medical Record Reviewed: Yes Mental Status Examination - Cognitive Function Orientation: Person, Place, Situation, Time Attention: WNL Concentration: Poor Association: WNL Fund of Knowledge: Poor - Mood Mood: Depressed, Anxious - Affect Affect: Constricted, Depressed - Speech Speech: Appropriate - Formal Thought Process Formal Thought Process: Circumstantial - Suicidal Ideation Suicidal Ideation: No - Homicidal Ideation Homicidal Ideation: No Goal/Treatment Plan - Goal/Treatment Plan Need for Continued Stay: Discharge may exacerbated symptoms, Severe functional impairment Progress Toward Problem(s) and Goals/Treatment Plan: MAJOR DEPRESSIVE DISORDER LEXAPRO NEURONTIN ALCOHOLUSE DISORDER [place] CBT Estimated Date of D/C: 11/20/18 - Smoking Cessation Smoking Cessation Initiated: Yes
--- NOTE | 2017-11-17 07:23 | PCM.PYCHPN ---
Psychiatric Progress Note - Psychiatric Progress Note Patient seen today, length of contact: 15 minutes Patient Chief Complaint: I PICK IF SOME THING GOES WRONG I WELLNESS RN IF SOME THING GOES RIGHT Problems Identified/Issues Discussed: [facility] MANAGEMENT OF DEPRESSIVE SYMPTOMS Medical Problems: NOTHING ACUTE Diagnostic Results: REVIEWED Medication Change: No (Start Topamax) Medical Record Reviewed: Yes Mental Status Examination - Cognitive Function Orientation: Person, Place, Situation, Time Memory: Intact Attention: WNL Concentration: Poor Association: WNL Fund of Knowledge: WNL - Mood Mood: Depressed - Affect Affect: Constricted, Depressed - Speech Speech: Appropriate - Formal Thought Process Formal Thought Process: No Impairment, Circumstantial - Suicidal Ideation Suicidal Ideation: No - Homicidal Ideation Homicidal Ideation: No Goal/Treatment Plan - Goal/Treatment Plan Need for Continued Stay: Discharge may exacerbated symptoms, Severe functional impairment Progress Toward Problem(s) and Goals/Treatment Plan: MAJOR DEPRESSIVE DISORDER LEXAPRO NEURONTIN ALCOHOL USE DISORDER [place] CBT [facility] PSYCHOTHERAPY Estimated Date of D/C: 11/20/18 - Smoking Cessation Smoking Cessation Initiated: Yes
[2017-11-17] MEDS: Multiple Vitamins Tab PO SCH (10:00)
[2017-11-17] MEDS: Pantoprazole 20 mg EC Tab PO SCH (10:00)
[2017-11-17] MEDS: Metoprolol Succinate 25 mg XL Tab PO SCH (10:01)
--- NOTE | 2017-11-17 14:41 | PCM.PYCHPN ---
Psychiatric Progress Note - Psychiatric Progress Note Patient seen today, length of contact: 15 minutes Patient Chief Complaint: I am vomiting.' Problems Identified/Issues Discussed: Patient seen and evaluated, chart reviewed and discussed with the nurse. Patient reports that he has developed some food poisoning, as he is vomiting and has episodes of diarrhoea since last night. He remained irritable and agitated due to this discomfort. He reports some improvement in the racing of thoughts and flight of ideas. Patient reports some improvement in the withdrawal symptoms. Patient is compliant with medications and denies any side effects. Symptoms are improving but need more time to stabilize. Support and psychoeducation given. Medication Change: Yes (Start emodium and zofran) Medical Record Reviewed: Yes Mental Status Examination - Cognitive Function Orientation: Person, Place, Situation, Time Memory: Intact Attention: WNL Concentration: Poor Association: WNL Fund of Knowledge: WNL - Mood Mood: Depressed - Affect Affect: Constricted, Depressed - Speech Speech: Appropriate - Formal Thought Process Formal Thought Process: No Impairment, Circumstantial - Suicidal Ideation Suicidal Ideation: No - Homicidal Ideation Homicidal Ideation: No Goal/Treatment Plan - Goal/Treatment Plan Need for Continued Stay: Discharge may exacerbated symptoms, Severe functional impairment Progress Toward Problem(s) and Goals/Treatment Plan: Bipolar disorder mixed severe Alcohol use severe Alcohol withdrawal Librium detox Gabapentin for augmentation Lexapro for the depression Start Topamax Medication benefits side effects were discussed in detail with the patient. Patient verbalized understanding. And agreed with the treatment plan. As needed meds and vitamins Attend groups and activities [place] for abstinence and CBT for relapse prevention Support and psychoeducation Consider and encourage MAT~ Refer to after care Emodium prn Zofran prn Estimated Date of D/C: 11/20/18 - Smoking Cessation Smoking Cessation Initiated: No
--- NOTE | 2017-11-17 21:34 | CP.PCM.PN ---
Subjective - Date & Time of Evaluation Date of Evaluation: 11/17/17 Time of Evaluation: 20:00 - Subjective Subjective: Pt seen and examined at bedside, is afebrile, no shortness of breath, feeling better, B.P controlled, seems depressed Objective - Vital Signs/Intake and Output Vital Signs (last 24 hours): Temp Pulse Resp BP Pulse Ox 100.1 F H 98 H 18 96/56 L 97 11/17/17 20:10 11/17/17 16:32 11/17/17 06:18 11/17/17 16:32 11/09/17 05:00 - Medications Medications: Current Medications Acetaminophen (Tylenol 325mg Tab) 650 mg PO Q6 PRN PRN Reason: Temperature >100F Last Admin: 11/17/17 20:10 Dose: 650 mg Aspirin (Aspirin Chewable) 81 mg PO DAILY [facility] Last Admin: 11/17/17 10:00 Dose: Not Given Clonidine HCl (Catapres) 0.1 mg PO Q4H PRN PRN Reason: Symptoms of alcohol withdrawl Escitalopram Oxalate (Lexapro) 10 mg PO DAILY [facility] Last Admin: 11/17/17 10:00 Dose: Not Given Folic Acid (Folic Acid) 1 mg PO DAILY [facility] Last Admin: 11/17/17 10:00 Dose: Not Given Gabapentin (Neurontin) 400 mg PO TID [facility] Last Admin: 11/17/17 17:37 Dose: Not Given Hydroxyzine HCl (Atarax) 25 mg PO Q4H PRN PRN Reason: Anxiety Last Admin: 11/16/17 21:19 Dose: 25 mg Ibuprofen (Motrin Tab) 400 mg PO Q4H PRN PRN Reason: Pain, Mild (1-3) Losartan Potassium (Cozaar) 25 mg PO DAILY [facility] Last Admin: 11/17/17 10:00 Dose: Not Given Metoprolol Succinate (Toprol Xl) 25 mg PO DAILY [facility] Last Admin: 11/17/17 10:01 Dose: Not Given Multivitamins (Hexavitamin) 1 tab PO DAILY [facility] Last Admin: 11/17/17 10:00 Dose: Not Given Ondansetron HCl (Zofran Tab) 4 mg PO Q8H PRN PRN Reason: Nausea/Vomiting Last Admin: 11/17/17 16:28 Dose: 4 mg Ondansetron HCl (Zofran Inj) 4 mg IM Q8H PRN PRN Reason: Nausea/Vomiting Pantoprazole Sodium (Protonix Ec Tab) 20 mg PO DAILY [facility] Last Admin: 11/17/17 10:00 Dose: Not Given Rosuvastatin Calcium (Crestor) 5 mg PO [facility] Last Admin: 11/16/17 21:19 Dose: 5 mg Thiamine HCl (Vitamin B1 Tab) 100 mg PO DAILY [facility] Last Admin: 11/17/17 10:01 Dose: Not Given Topiramate (Topamax) 25 mg PO BID [facility] Last Admin: 11/17/17 17:37 Dose: Not Given Trazodone HCl (Desyrel) 100 mg PO [facility] Last Admin: 11/16/17 21:19 Dose: 100 mg - Labs Labs: 11/16/17 08:44 11/16/17 08:44 - Constitutional Appears: No Acute Distress - Head Exam Head Exam: ATRAUMATIC, NORMAL INSPECTION, NORMOCEPHALIC - Eye Exam Eye Exam: EOMI, Normal appearance, PERRL - Cardiovascular Exam Cardiovascular Exam: REGULAR RHYTHM, +S1, +S2. absent: Murmur - GI/Abdominal Exam GI & Abdominal Exam: Soft, Normal Bowel Sounds. absent: Tenderness - Rectal Exam Rectal Exam: Deferred Assessment and Plan (1) Alcohol abuse Status: Chronic (2) Depression Status: Acute (3) Intractable back pain Status: Chronic (4) Hypertension Status: Chronic
[2017-11-18] MEDS: Pantoprazole 20 mg EC Tab PO SCH (09:56)
[2017-11-18] MEDS: Multiple Vitamins Tab PO SCH (09:56)
[2017-11-18] MEDS: Metoprolol Succinate 25 mg XL Tab PO SCH (09:56)
--- NOTE | 2017-11-18 14:26 | PCM.PYCHPN ---
Psychiatric Progress Note - Psychiatric Progress Note Patient seen today, length of contact: 15 minutes Patient Chief Complaint: I am feeling very irritable.' Problems Identified/Issues Discussed: Patient seen and evaluated, chart reviewed and discussed with the nurse. Patient was seen by the medical doctor because of vomiting and diarrhoea. He remained irritable and agitated due to this discomfort. He reports some improvement in the racing of thoughts and flight of ideas. Patient reports improvement in the withdrawal symptoms. He denies any SI/HI. He is planned to be discharged tomorrow if the weather conditions permit. Patient is compliant with medications and denies any side effects. Symptoms are improving but need more time to stabilize. Support and psychoeducation given. Medication Change: No Medical Record Reviewed: Yes Mental Status Examination - Cognitive Function Orientation: Person, Place, Situation, Time Memory: Intact Attention: WNL Concentration: Poor Association: WNL Fund of Knowledge: WNL - Mood Mood: Depressed - Affect Affect: Constricted, Depressed - Speech Speech: Appropriate - Formal Thought Process Formal Thought Process: No Impairment - Suicidal Ideation Suicidal Ideation: No - Homicidal Ideation Homicidal Ideation: No Goal/Treatment Plan - Goal/Treatment Plan Need for Continued Stay: Discharge may exacerbated symptoms, Severe functional impairment Progress Toward Problem(s) and Goals/Treatment Plan: Librium detox Gabapentin for augmentation Lexapro for the depression Start Topamax Medication benefits side effects were discussed in detail with the patient. Patient verbalized understanding. And agreed with the treatment plan. As needed meds and vitamins Attend groups and activities [place] for abstinence and CBT for relapse prevention Support and psychoeducation Consider and encourage MAT~ Refer to after care Emodikevin rocha Estimated Date of D/C: 11/20/18
--- NOTE | 2017-11-18 23:55 | CP.PCM.PN ---
Subjective - Date & Time of Evaluation Date of Evaluation: 11/18/17 Time of Evaluation: 19:00 - Subjective Subjective: Pt seen and evaluated, pt c/o weakness, nausea, vomiting, loose watery stools which all started yesterday around 11 am Objective - Vital Signs/Intake and Output Vital Signs (last 24 hours): Temp Pulse Resp BP Pulse Ox 98.3 F 64 16 104/65 97 11/18/17 06:23 11/18/17 16:03 11/18/17 06:23 11/18/17 16:03 11/09/17 05:00 - Medications Medications: Current Medications Acetaminophen (Tylenol 325mg Tab) 650 mg PO Q6 PRN PRN Reason: Temperature >100F Last Admin: 11/17/17 20:10 Dose: 650 mg Aspirin (Aspirin Chewable) 81 mg PO DAILY [facility] Last Admin: 11/18/17 09:56 Dose: 81 mg Clonidine HCl (Catapres) 0.1 mg PO Q4H PRN PRN Reason: Symptoms of alcohol withdrawl Escitalopram Oxalate (Lexapro) 10 mg PO DAILY [facility] Last Admin: 11/18/17 09:56 Dose: 10 mg Folic Acid (Folic Acid) 1 mg PO DAILY [facility] Last Admin: 11/18/17 09:56 Dose: 1 mg Gabapentin (Neurontin) 400 mg PO TID [facility] Last Admin: 11/18/17 18:41 Dose: 400 mg Hydroxyzine HCl (Atarax) 25 mg PO Q4H PRN PRN Reason: Anxiety Last Admin: 11/16/17 21:19 Dose: 25 mg Ibuprofen (Motrin Tab) 400 mg PO Q4H PRN PRN Reason: Pain, Mild (1-3) Metoprolol Succinate (Toprol Xl) 25 mg PO DAILY [facility] Last Admin: 11/18/17 09:56 Dose: 25 mg Multivitamins (Hexavitamin) 1 tab PO DAILY [facility] Last Admin: 11/18/17 09:56 Dose: 1 tab Ondansetron HCl (Zofran Tab) 4 mg PO Q8H PRN PRN Reason: Nausea/Vomiting Last Admin: 11/17/17 16:28 Dose: 4 mg Ondansetron HCl (Zofran Inj) 4 mg IM Q8H PRN PRN Reason: Nausea/Vomiting Last Admin: 01/03/18 19:02 Dose: 4 mg Pantoprazole Sodium (Protonix Ec Tab) 20 mg PO DAILY [facility] Last Admin: 11/18/17 09:56 Dose: 20 mg Rosuvastatin Calcium (Crestor) 5 mg PO [facility] Last Admin: 11/18/17 22:35 Dose: 5 mg Thiamine HCl (Vitamin B1 Tab) 100 mg PO DAILY [facility] Last Admin: 11/18/17 09:56 Dose: 100 mg Topiramate (Topamax) 25 mg PO BID [facility] Last Admin: 11/18/17 18:41 Dose: 25 mg Trazodone HCl (Desyrel) 100 mg PO [facility] Last Admin: 11/18/17 22:18 Dose: Not Given - Labs Labs: 11/16/17 08:44 11/16/17 08:44 - Constitutional Appears: No Acute Distress - Head Exam Head Exam: ATRAUMATIC, NORMAL INSPECTION, NORMOCEPHALIC - Eye Exam Eye Exam: EOMI, Normal appearance, PERRL Pupil Exam: NORMAL ACCOMODATION, PERRL - Respiratory Exam Respiratory Exam: Clear to Ausculation Bilateral, NORMAL BREATHING PATTERN - Cardiovascular Exam Cardiovascular Exam: REGULAR RHYTHM, +S1, +S2. absent: Murmur - GI/Abdominal Exam GI & Abdominal Exam: Hyperactive Bowel Sounds Assessment and Plan (1) Alcohol abuse Status: Chronic (2) Depression Status: Acute (3) Intractable back pain Status: Chronic (4) Hypertension Status: Chronic (5) Diarrhea Status: Acute
[2017-11-19] MEDS: Multiple Vitamins Tab PO SCH (10:26)
[2017-11-19] MEDS: Pantoprazole 20 mg EC Tab PO SCH (10:27)
[2017-11-19] MEDS: Metoprolol Succinate 25 mg XL Tab PO SCH (10:27)
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
--- NOTE | 2017-11-19 23:12 | CP.PCM.PN ---
Subjective - Date & Time of Evaluation Date of Evaluation: 11/19/17 Time of Evaluation: 19:00 - Subjective Subjective: Pt seen and examined, has less diarrhea, less abdominal pain Objective - Vital Signs/Intake and Output Vital Signs (last 24 hours): Temp Pulse Resp BP Pulse Ox 98.4 F 97 H 17 123/79 97 11/19/17 06:32 11/19/17 15:42 11/19/17 06:32 11/19/17 15:42 11/09/17 05:00 - Medications Medications: Current Medications Acetaminophen (Tylenol 325mg Tab) 650 mg PO Q6 PRN PRN Reason: Temperature >100F Last Admin: 11/17/17 20:10 Dose: 650 mg Aspirin (Aspirin Chewable) 81 mg PO DAILY [facility] Last Admin: 11/19/17 10:27 Dose: 81 mg Clonidine HCl (Catapres) 0.1 mg PO Q4H PRN PRN Reason: Symptoms of alcohol withdrawl Escitalopram Oxalate (Lexapro) 10 mg PO DAILY [facility] Last Admin: 11/19/17 10:26 Dose: 10 mg Folic Acid (Folic Acid) 1 mg PO DAILY [facility] Last Admin: 11/19/17 10:26 Dose: 1 mg Gabapentin (Neurontin) 400 mg PO TID [facility] Last Admin: 11/19/17 17:27 Dose: 400 mg Hydroxyzine HCl (Atarax) 25 mg PO Q4H PRN PRN Reason: Anxiety Last Admin: 11/16/17 21:19 Dose: 25 mg Ibuprofen (Motrin Tab) 400 mg PO Q4H PRN PRN Reason: Pain, Mild (1-3) Metoprolol Succinate (Toprol Xl) 25 mg PO DAILY [facility] Last Admin: 11/19/17 10:27 Dose: 25 mg Multivitamins (Hexavitamin) 1 tab PO DAILY [facility] Last Admin: 11/19/17 10:26 Dose: 1 tab Ondansetron HCl (Zofran Tab) 4 mg PO Q8H PRN PRN Reason: Nausea/Vomiting Last Admin: 11/17/17 16:28 Dose: 4 mg Ondansetron HCl (Zofran Inj) 4 mg IM Q8H PRN PRN Reason: Nausea/Vomiting Last Admin: 11/18/17 19:02 Dose: 4 mg Pantoprazole Sodium (Protonix Ec Tab) 20 mg PO DAILY [facility] Last Admin: 11/19/17 10:27 Dose: 20 mg Rosuvastatin Calcium (Crestor) 5 mg PO [facility] Last Admin: 11/19/17 21:42 Dose: 5 mg Thiamine HCl (Vitamin B1 Tab) 100 mg PO DAILY [facility] Last Admin: 11/19/17 10:26 Dose: 100 mg Topiramate (Topamax) 25 mg PO BID [facility] Last Admin: 11/19/17 17:27 Dose: 25 mg Trazodone HCl (Desyrel) 100 mg PO [facility] Last Admin: 11/19/17 21:42 Dose: 100 mg - Labs Labs: 11/16/17 08:44 11/16/17 08:44 - Constitutional Appears: No Acute Distress - Head Exam Head Exam: ATRAUMATIC, NORMAL INSPECTION, NORMOCEPHALIC - Eye Exam Eye Exam: EOMI, Normal appearance, PERRL Pupil Exam: NORMAL ACCOMODATION, PERRL - Respiratory Exam Respiratory Exam: Clear to Ausculation Bilateral, NORMAL BREATHING PATTERN - Cardiovascular Exam Cardiovascular Exam: REGULAR RHYTHM, +S1, +S2. absent: Murmur - GI/Abdominal Exam GI & Abdominal Exam: Soft, Normal Bowel Sounds. absent: Tenderness Assessment and Plan (1) Alcohol abuse Status: Chronic (2) Depression Status: Acute (3) Intractable back pain Status: Chronic (4) Hypertension Status: Chronic (5) Diarrhea Status: Acute
[2017-11-20 06:25] VITALS: BP 93/64; PULSE 57; RESP 19; TEMP 97.4
[2017-11-20] MEDS: Pantoprazole 20 mg EC Tab PO SCH (09:40)
[2017-11-20] MEDS: Multiple Vitamins Tab PO SCH (09:40)
[2017-11-20] MEDS: Metoprolol Succinate 25 mg XL Tab PO SCH (09:40)
--- NOTE | 2017-11-20 10:23 | PCM.PYCHDC ---
Mental Status Examination - Mental Status Examination Orientation: Person, Place, Situation, Time Memory: Intact Mood: Neutral Affect: Constricted Speech: Soft Attention: WNL Concentration: WNL Association: WNL Fund of Knowledge: WNL Formal Thought Process: No Impairment Description of patient's judgement and insight: good, fair Psychotic Thoughts and Behaviors: denies any AVH Suicidal Ideation: No Current Homicidal Ideation?: No Discharge Summary - Discharge Note Reason for Hospitalization: The patient is a 61yo male who was admitted for chest pain but complains of depression, suicidal ideation, and alcohol withdrawal. he is not compliant with his treatment and follow-up plan after discharge from the hospital. The patient states that he is and lives alone in an apartment in [place]. he stated yesterday he was feeling very depressed and started drinking rum. He stated that he wants to end his life because his family members are not in his life and he had had relational issues with the children's. He stated he took a handful off Topamax and gabapentin better on to end his life. He stated that he did not have any particular itself for the suicide attempt. He stated that he is feeling worthless hopeless hopeless and suicidal ideations. Currently he denied any suicidal intent or plan. He reported he had a difficulty in sleep at the nighttime. His self-esteem is low and had guilty thoughts about his behavior. He states that he has 6 children: 39yo, 29yo, 27yo, 27yo, 17yo, 16yo. He states that he is disabled and receives disability checks. He says that he has been depressed for at least 10 years and that he has been hospitalized for psych twice in [place] and [facility] but doesn't remember when. He states that he has been to detox twice in [facility] but doesn't remember when. he stated that his last admission at the [facility] was in April 2017. He reported he smokes smokes a pack of cigarettes for the past 46 years. He states that his longest sobriety was 3 months. he reported that the medication is helping him and I'll call withdrawal symptoms. CAGE questionnaire was positive. He denies having any allergies and has a past medical history of HTN and diabetes. The patient appears to have a depressed mood but appropriate affect. He is organized in his thoughts and speech and appears to be kempt. Consultations:: List each consultation separately and include: 1. Reason for request. 2. Findings. 3. Follow-up Summary of Hospital Course include:: 1. Description of specific treatment plan utilized for patients during their course of treatmen. 2. Summarize the time- course for resolution of acute symptoms and/or regressed behaviors. 3. Describe issues identified and worked on during hospitalization. 4. Describe medication utilized. 5. Describe medical problems identified and treated. 6. Reassessment of suicide risk Summary of Hospital Course: During the course of his stay, patient (pt) started progressively improving and he no longer remained irritable, depressed, and suicidal. His mood and anxiety symptoms were improved and he started attending groups and meetings and started socializing. Patient denied any feelings of hopelessness, helplessness, and worthlessness, denied any problem with the sleep or appetite, denied suicidal ideation or homicidal ideation. Pt denied any auditory or visual hallucinations. Some changes were made in his current medications and patient was discharged on following medications. He tolerated these medications very well and denied any side effects. He was discharged to the [facility]. - Diagnosis (1) Depression Status: Acute Priority: High (2) Alcohol abuse Status: Acute - Final Diagnosis (DSM 5) Condition upon Discharge: FAIR DSM 5: Bipolar disorder mixed severe Alcohol use severe Alcohol withdrawal Disposition: HOME/ ROUTINE Follow-up Treatment Plan: Education: Pt was educated and counseled about the risks and benefits of taking and not taking medications. Pt was educated and counseled about the risks of drinking and abusing drugs. Pt was educated and counseled to go to the ER or call 911 if pt develop suicidal ideation or homicidal ideation, worsening of symptoms or severe side effects of the meds. Prescriptions/Medication Reconciliation: Escitalopram [Lexapro] 10 mg PO DAILY #30 tab Gabapentin [Neurontin] 400 mg PO BID #60 cap Topiramate [Topamax] 50 mg PO BID #60 tab traZODone [Desyrel] 100 mg PO HS #30 tab - Smoking Cessation Smoking Cessation Medication prescribed: No - Antipsychotic Medications Pt discharged on 2 or more routine antipsychotic medications: No
--- NOTE | 2017-11-20 23:07 | CP.PCM.DIS ---
Provider - Provider Date of Admission: 11/09/17 01:48 Attending physician: Anton Avila MD Primary care physician: Dennys Vasquez MD Time Spent in preparation of Discharge (in minutes): 23 Diagnosis - Discharge Diagnosis (1) Alcohol abuse Status: Chronic Priority: High (2) Depression Status: Acute Priority: High (3) Intractable back pain Status: Chronic (4) Hypertension Status: Chronic Priority: Low (5) Diarrhea Status: Acute Hospital Course - Lab Results Lab Results: Most Recent Lab Values WBC 8.0 K/uL (4.8-10.8) 11/16/17 08:44 RBC 4.70 Mil/uL (4.40-5.90) 11/16/17 08:44 Hgb 12.3 g/dL (12.0-18.0) 11/16/17 08:44 Hct 38.4 % (35.0-51.0) 11/16/17 08:44 MCV 81.7 fL (80.0-94.0) 11/16/17 08:44 MCH 26.2 pg (27.0-31.0) L 11/16/17 08:44 MCHC 32.1 g/dL (33.0-37.0) L 11/16/17 08:44 RDW 17.9 % (11.5-14.5) H 11/16/17 08:44 Plt Count 319 K/uL (130-400) D 11/16/17 08:44 MPV 8.6 fL (7.2-11.7) 11/16/17 08:44 Neut % (Auto) 53.7 % (50.0-75.0) 11/08/17 21:24 Lymph % (Auto) 25.1 % (20.0-40.0) 11/08/17 21:24 Burnet % (Auto) 17.4 % (0.0-10.0) H 11/08/17 21:24 Eos % (Auto) 2.9 % (0.0-4.0) 11/08/17 21:24 Baso % (Auto) 0.9 % (0.0-2.0) 11/08/17 21:24 Neut # 4.2 K/uL (1.8-7.0) 11/08/17 21:24 Lymph # 2.0 K/uL (1.0-4.3) 11/08/17 21:24 Burnet # 1.4 K/uL (0.0-0.8) H 11/08/17 21:24 Eos # 0.2 K/uL (0.0-0.7) 11/08/17 21:24 Baso # 0.1 K/uL (0.0-0.2) 11/08/17 21:24 Sodium 135 mmol/L (132-148) 11/16/17 08:44 Potassium 4.7 mmol/L (3.6-5.2) 11/16/17 08:44 Chloride 102 mmol/L (98-107) 11/16/17 08:44 Carbon Dioxide 27 mmol/L (22-30) 11/16/17 08:44 Anion Gap 11 (10-20) 11/16/17 08:44 BUN 17 mg/dL (9-20) 11/16/17 08:44 Creatinine 1.0 mg/dL (0.8-1.5) 11/16/17 08:44 Est GFR ( Amer) > 60 11/16/17 08:44 Est GFR (Non-Af Amer) > 60 11/16/17 08:44 Random Glucose 104 mg/dL (75-110) 11/16/17 08:44 Calcium 8.3 mg/dl (8.6-10.4) L 11/16/17 08:44 Magnesium 1.7 mg/dL (1.6-2.3) 11/09/17 11:20 Total Bilirubin 0.2 mg/dL (0.2-1.3) 11/09/17 11:20 AST 22 U/L (17-59) 11/09/17 11:20 ALT 25 U/L (21-72) 11/09/17 11:20 Alkaline Phosphatase 52 U/L (38-126) 11/09/17 11:20 Total Protein 6.8 g/dL (6.3-8.3) 11/09/17 11:20 Albumin 3.6 g/dL (3.5-5.0) 11/09/17 11:20 Globulin 3.2 gm/dL (2.2-3.9) 11/09/17 11:20 Albumin/Globulin Ratio 1.1 (1.0-2.1) 11/09/17 11:20 Triglycerides 76 mg/dL (0-149) D 11/09/17 11:20 Cholesterol 155 mg/dL (0-199) 11/09/17 11:20 LDL Cholesterol Direct 115 mg/dL (0-129) 11/09/17 11:20 HDL Cholesterol 35 mg/dL (30-70) 11/09/17 11:20 25-OH Vitamin D Total 23.5 NG/ML (30.0-100.0) L 11/09/17 11:20 TSH 3rd Generation 1.58 mIU/L (0.46-4.68) 11/09/17 11:20 Urine Color Yellow (YELLOW) 11/09/17 00:15 Urine Clarity Clear (Clear) 11/09/17 00:15 Urine pH 5.0 (5.0-8.0) 11/09/17 00:15 Ur Specific [place] 1.004 (1.003-1.030) 11/09/17 00:15 Urine Protein 1+ mg/dL (NEGATIVE) H 11/09/17 00:15 Urine Glucose (UA) Normal mg/dL (Normal) 11/09/17 00:15 Urine Ketones Negative mg/dL (NEGATIVE) 11/09/17 00:15 Urine Blood Negative (NEGATIVE) 11/09/17 00:15 Urine Nitrate Negative (NEGATIVE) 11/09/17 00:15 Urine Bilirubin Negative (NEGATIVE) 11/09/17 00:15 Urine Urobilinogen Normal mg/dL (0.2-1.0) 11/09/17 00:15 Ur Leukocyte Esterase Neg Ellie/uL (Negative) 11/09/17 00:15 Urine WBC (Auto) 3 /hpf (0-5) 11/09/17 00:15 Urine RBC (Auto) 1 /hpf (0-3) 11/09/17 00:15 Ur Squamous Epith Cells < 1 /hpf (0-5) 11/09/17 00:15 Hyaline Casts 3-5 /lpf (0-2) H 11/09/17 00:15 Salicylates < 1.0 mg/dL 1 11/08/17 21:24 Urine Opiates Screen Negative (NEGATIVE) 11/09/17 00:15 Urine Methadone Screen Negative (NEGATIVE) 11/09/17 00:15 Acetaminophen < 10.0 ug/mL (10.0-30.0) L 11/08/17 21:24 Ur Barbiturates Screen Negative (NEGATIVE) 11/09/17 00:15 Ur Phencyclidine Scrn Negative (NEGATIVE) 11/09/17 00:15 Ur Amphetamines Screen Negative (NEGATIVE) 11/09/17 00:15 U Benzodiazepines Scrn Positive (NEGATIVE) H 11/09/17 00:15 U Oth Cocaine Metabols Negative (NEGATIVE) 11/09/17 00:15 U Cannabinoids Screen Negative (NEGATIVE) 11/09/17 00:15 Alcohol, Quantitative 228 mg/dl (0-10) H 11/08/17 21:24 - Hospital Course Hospital Course: Pt is for discharge today, pt is feeling better, no nausea, vomitting diarrhea, not depressed, rest of exam is normal, discharge pt home Discharge Exam - Head Exam Head Exam: ATRAUMATIC, NORMAL INSPECTION, NORMOCEPHALIC - Eye Exam Eye Exam: EOMI, Normal appearance, PERRL Pupil Exam: NORMAL ACCOMODATION, PERRL - ENT Exam ENT Exam: Mucous Membranes Moist - Respiratory Exam Respiratory Exam: Clear to PA & Lateral, NORMAL BREATHING PATTERN - Cardiovascular Exam Cardiovascular Exam: REGULAR RHYTHM - GI/Abdominal Exam GI & Abdominal Exam: Normal Bowel Sounds Discharge Plan - Discharge Medications Prescriptions: traZODone [Desyrel] 100 mg PO HS #30 tab Escitalopram [Lexapro] 10 mg PO DAILY #30 tab Gabapentin [Neurontin] 400 mg PO BID #60 cap Topiramate [Topamax] 50 mg PO BID #60 tab - Follow Up Plan Condition: FAIR Disposition: HOME/ ROUTINE Referrals: Dennys Vasquez MD [Primary Care Provider] -
== END 2017-11-20 13:47 | disposition home or self-care (01) | DRG 885 ==
LOC: C.ER 20:45 → SUPCPDRO 20:45 → C.5E 11-09 01:48
PROVIDERS: ADMIT Psychiatry & Neurology Psychiatry; ATTEND Psychiatry & Neurology Psychiatry
PROC: HZ2ZZZZ Detoxification Services for Substance Abuse Treatment (ICD-10-PCS; principal; 2017-11-10)
PROC: HZ52ZZZ Individual Psychotherapy for Substance Abuse Treatment, Cognitive-Behavioral (ICD-10-PCS; 2017-11-10)
PROC: HZ59ZZZ Individual Psychotherapy for Substance Abuse Treatment, Supportive (ICD-10-PCS; 2017-11-10)
PROC: HZ56ZZZ Individual Psychotherapy for Substance Abuse Treatment, Psychoeducation (ICD-10-PCS; 2017-11-10)
PROC: HZ57ZZZ Individual Psychotherapy for Substance Abuse Treatment, Motivational Enhancement (ICD-10-PCS; 2017-11-10)
DX: F31.63 Bipolar disorder, current episode mixed, severe, without psychotic features (principal); E11.51 Type 2 diabetes mellitus with diabetic peripheral angiopathy without gangrene; E11.22 Type 2 diabetes mellitus with diabetic chronic kidney disease; J43.9 Emphysema, unspecified; F17.210 Nicotine dependence, cigarettes, uncomplicated; D50.9 Iron deficiency anemia, unspecified; F10.230 Alcohol dependence with withdrawal, uncomplicated; R45.851 Suicidal ideations; E03.9 Hypothyroidism, unspecified; Z91.19 Patient's noncompliance with other medical treatment and regimen; E78.00 Pure hypercholesterolemia, unspecified; F41.9 Anxiety disorder, unspecified; G47.30 Sleep apnea, unspecified; I12.9 Hypertensive chronic kidney disease with stage 1 through stage 4 chronic kidney disease, or unspecified chronic kidney disease; I25.10 Atherosclerotic heart disease of native coronary artery without angina pectoris; N18.9 Chronic kidney disease, unspecified; R07.9 Chest pain, unspecified; N40.0 Benign prostatic hyperplasia without lower urinary tract symptoms; Z87.01 Personal history of pneumonia (recurrent); Z95.1 Presence of aortocoronary bypass graft; Z95.5 Presence of coronary angioplasty implant and graft

== ENCOUNTER 2017-11-28 16:43 | Emergency (ER) | payer MEDICARE, MEDICAID ==
[2017-11-28 16:43] VITALS: BMI 29.8
--- NOTE | 2017-11-28 18:14 | C.PDOC ---
History Of Present Illness <Lc Pnea - Last Filed: 11/28/17 18:11> <Chantal Schaefer - Last Filed: 11/29/17 10:26> <Lilo Gallo - Last Filed: 11/29/17 19:11> 61M c/o feeling depressed and suicidal without plan. he says he has many life stressors contributing to his depression. he drinks daily and also takes "pain pills." the chest pain he reported in triage he did not mention to me until I asked, then stated it has been going on for "months" and is unchanged today. ( Lc Pena) <Lc Pena - Last Filed: 11/28/17 18:11> <Chantal Schaefer - Last Filed: 11/29/17 10:26> <Lilo Gallo - Last Filed: 11/29/17 19:11> Time Seen by Provider: 11/28/17 17:46 Chief Complaint (Nursing): Substance Abuse Past Medical History - Medical History PMH: Anemia (iron deficiency), Anxiety, Arthritis, Asthma, Benign Prostatic Hyperplasia, Bipolar Disorder, Bronchitis, CAD, COPD, Depression, Diabetes, Diverticulitis, Emphysema, Hepatitis (PATIENT STATED HE HAS HEPATITIS BUT COULD NOT RECALL WHICH ONE), HTN, Hypercholesterolemia, Hyperlipidemia, Hypothyroidism , Migraine, Pancreatitis, Pneumonia, Chronic Kidney Disease (States recent diagnosis), Seizures (ETOH related), Sleep Apnea Denies: CHF, HIV, Sexually Transmitted Disease Surgical History: CABG ((quadruple bypass) 2010), Coronary Stent Family History: States: Other Other Family History: nc - Social History Hx Tobacco Use: Yes Hx Alcohol Use: Yes Hx Substance Use: No - Immunization History Hx Tetanus Toxoid Vaccination: Yes Hx Influenza Vaccination: Yes Hx Pneumococcal Vaccination: Yes <Lc Pena - Last Filed: 11/28/17 18:11> Vital Signs: Last Vital Signs Temp 98.8 F 11/29/17 15:07 Pulse 67 11/29/17 15:07 Resp 18 11/29/17 15:07 BP 148/77 11/29/17 15:07 Pulse Ox 98 11/29/17 15:07 - [facility] Procedures ALCOHOL DETOXIFICATION (03/12/15) CORONAR ARTERIOGR-2 CATH (07/24/15) CORONARY ARTERY STENT INSERTION [id number] (07/24/15) DETOXIFICATION SERVICES FOR SUBSTANCE ABUSE TREATMENT (11/09/17) ESOPHAGOGASTRODUODENOSCOPY [EGD] W/CLOSED BIOPSY (05/21/13) EXCISION OF DESCENDING COLON, ENDO, DIAGN (06/01/17) EXCISION OF STOMACH, ENDO, DIAGN (06/01/17) GROUP PSYCHOTHERAPY (11/19/16) INDIV PSYCHOTHERAPY FOR SUBSTANCE ABUSE TREATMENT, SUPPORT (11/09/17) INDIV PSYCHOTHERAPY FOR SUBSTANCE ABUSE, COGNITIV BEHAVIORAL (11/09/17) INDIV PSYCHOTHERAPY FOR SUBSTANCE ABUSE, MOTIVATION ENHANCE (11/09/17) INDIV PSYCHOTHERAPY FOR SUBSTANCE ABUSE, PSYCHOEDUCATION (11/09/17) INDIVID PSYCHOTHERAP NEC (11/04/14) INDIVIDUAL PSYCHOTHERAPY, BEHAVIORAL (01/17/16) INDIVIDUAL PSYCHOTHERAPY, COGNITIVE-BEHAVIORAL (11/19/16) INDIVIDUAL PSYCHOTHERAPY, SUPPORTIVE (10/02/16) INSERTION OF ONE VASCULAR STENT (07/24/15) IRRIGATION OF EAR (05/23/15) LEFT HEART CARDIAC CATH (07/19/15) LT HEART ANGIOCARDIOGRAM (07/19/15) OTHER GROUP THERAPY (11/04/14) PACKED CELL TRANSFUSION (05/21/13) PERCUTANEOUS TRANSLUMINAL CORONARY ANGIOPLASTY [PTCA] (07/24/15) PROCEDURE ON SINGLE VESSEL (07/24/15) PSYCHIAT DRUG THERAP NEC (11/04/14) RT HEART ANGIOCARDIOGRAM (07/22/15) RT HEART CARDIAC CATH (07/22/15) VACCINATION NEC (09/28/14) Review Of Systems Except As Marked, All Systems Reviewed And Found Negative. Constitutional: Negative for: Fever, Chills Cardiovascular: Positive for: Chest Pain (chronic). Negative for: Palpitations , Edema Respiratory: Negative for: Cough, Shortness of Breath Gastrointestinal: Negative for: Vomiting, Abdominal Pain Neurological: Negative for: Weakness, Numbness, Headache Psych: Positive for: Depression, Suicidal ideation <Lc Pena - Last Filed: 11/28/17 18:11> Physical Exam - Physical Exam Appears: Non-toxic, Other (tearful. intoxicated.) Head: Atraumatic Eye(s): bilateral: PERRL Oral Mucosa: Moist Lips: No Swelling Neck: Normal ROM Cardiovascular: Rhythm Regular Respiratory: No Accessory Muscle Use Gastrointestinal/Abdominal: Soft, No Tenderness Extremity: No Swelling Neurological/Psych: Oriented x3, Other (no focal deficits) <Lc Pena - Last Filed: 11/28/17 18:11> ED Course And Treatment O2 Sat by Pulse Oximetry: 96 <Lc Pena - Last Filed: 11/28/17 18:11> - Laboratory Results Result Diagrams: 11/28/17 18:15 11/28/17 18:15 <Chantal Schaefer - Last Filed: 11/29/17 10:26> - Laboratory Results Result Diagrams: 11/28/17 18:15 11/28/17 18:15 <Lilo Gallo - Last Filed: 11/29/17 19:11> Progress <Lc Pena - Last Filed: 11/28/17 18:11> <Chantal Schaefer - Last Filed: 11/29/17 10:26> <Lilo Gallo - Last Filed: 11/29/17 19:11> - Re-Evaluation Re-evaluation Note: 11/29/17 07:00 s/o from dr gallo PENDING PSYCH EVAL FOR SI. MEDICALLY CLEARED BY DR GALLO. 11/29/17 10:28 D/W CRISIS, PT TO BE TRANSFERRED TO [facility] DR WALKER (Chantal Schaefer) Medical Decision Making <Lc Pena - Last Filed: 11/28/17 18:11> <Chantal Schaefer - Last Filed: 11/29/17 10:26> <Lilo Gallo - Last Filed: 11/29/17 19:11> Medical Decision Making: Pt with suicidal ideation.Now that he is clinically sober,he is medically cleared for psych evaluation (Lilo Gallo) Disposition <Lc Pena - Last Filed: 11/28/17 18:11> Counseled Patient/Family Regarding: Diagnosis - Disposition Disposition Time: 10:28 <Chantal Schaefer - Last Filed: 11/29/17 10:26> <Lilo Gallo - Last Filed: 11/29/17 19:11> - Disposition Disposition: Trans to Other Acute Care Hosp Condition: STABLE Forms: [facility] (Bengali) - Clinical Impression Clinical Impression: Depression
[2017-11-28 18:23] LABS: BASO # 0.1 K/uL (0.0-0.2); EOS # 0.1 K/uL (0.0-0.7); EOS % 1.1 % (0.0-4.0); HEMOGLOBIN 11.3 g/dL (12.0-18.0); LYMPH # 2.4 K/uL (1.0-4.3); LYMPH % 20.1 % (20.0-40.0); MEAN CELL VOLUME 77.4 fL (80.0-94.0); MEAN CORPUSCULAR HGB CONC 32.3 g/dL (33.0-37.0); MEAN PLATELET VOLUME 8.1 fL (7.2-11.7); MONO # 0.8 K/uL (0.0-0.8); MONO % 6.9 % (0.0-10.0); NEUT # 8.3 K/uL (1.8-7.0); NEUT % 70.9 % (50.0-75.0); NRBC % 0.1 % (0.0-2.0); RBC 4.54 Mil/uL (4.40-5.90); RED CELL DISTRIBUTION WIDTH 17.6 % (11.5-14.5); WHITE BLOOD COUNT 11.7 K/uL (4.8-10.8)
[2017-11-28 18:56] LABS: ALBUMIN 3.8 g/dL (3.5-5.0); ALT/SGPT 27 U/L (21-72); AST/SGOT 35 U/L (17-59); BLOOD UREA NITROGEN 7 mg/dL (9-20); GFR AFRICAN-AMERICAN > 60; GFR NON-AFRICAN AMERICAN > 60
[2017-11-28 19:13] LABS: ACETAMINOPHEN < 10.0 ug/mL (10.0-30.0); SALICYLATE < 1.0 mg/dL 1
[2017-11-28 20:00] LABS: URINE CLARITY Clear (Clear); URINE COLOR YELLOW (YELLOW)
[2017-11-28 20:01] LABS: URINE BILIRUBIN MODERATE (NEGATIVE); URINE BLOOD NEGATIVE (NEGATIVE); URINE GLUCOSE (UA) NEGATIVE (Normal); URINE NITRATE NEGATIVE (NEGATIVE); URINE PROTEIN > 300 mg/dL (NEGATIVE)
[2017-11-28 20:02] LABS: URINE LEUKOCYTE ESTERASE NEGATIVE Leu/uL (Negative)
[2017-11-28 20:04] LABS: BARBITURATES, UR NEGATIVE (NEGATIVE); BENZODIAZEPINES, UR NEGATIVE (NEGATIVE); OPIATES, UR NEGATIVE (NEGATIVE); PHENCYCLIDINE, UR NEGATIVE (NEGATIVE)
[2017-11-28 20:16] LABS: SQUAMOUS EPITHIAL 5 /hpf (0-5)
[2017-11-29] MEDS ORDERED: Potassium Chloride 20 mEq/15 ml LIQ UD PO STA (06:13)
[2017-11-29] MEDS ORDERED: Potassium Chloride 20 mEq ER Tab PO ONE (06:14)
[2017-11-29] MEDS ORDERED: Potassium Chloride 20 mEq ER Tab PO STA (06:14)
[2017-11-29] MEDS ORDERED: Aluminum Hydroxide/Magnesium Hydroxide Susp (30 mL) PO ONE (07:33)
[2017-11-29] MEDS ORDERED: Aluminum Hydroxide/Magnesium Hydroxide Susp (30 mL) ONE ×2 (07:37→12:00)
[2017-11-29] MEDS ORDERED: Aluminum Hydroxide/Magnesium Hydroxide Susp (30 mL) PO STA (11:36)
[2017-11-29] MEDS ORDERED: DiphenhydrAMINE 12.5 mg/5 ml LIQ UD (5 ml) PO STA (11:36)
[2017-11-29 12:48] VITALS: TEMP 98.8
[2017-11-29 15:08] VITALS: BP 148/77; PULSE 67; RESP 18; O2SAT 98
--- NOTE | 2017-11-30 14:52 | CARD ---
APPROVED REPORT EKG Measurement Heart [id number] <Conclusion> Sinus rhythm with occasional premature ventricular complexes Possible Left atrial enlargement Incomplete right bundle branch block Nonspecific T wave abnormality Abnormal ECG
== END 2017-11-29 15:28 | disposition short-term general hospital (02) ==
LOC: C.ER 16:43
DX: F32.9 Major depressive disorder, single episode, unspecified (principal)
CPT/HCPCS: 80053; 81001; 84484; 85025; 93005; 96374; 99285; G0480; J2405

== ENCOUNTER 2017-12-10 14:09 | Emergency (ER) | payer MEDICARE, MEDICAID ==
[2017-12-10 14:19] VITALS: BMI 29.2
--- NOTE | 2017-12-10 14:23 | C.PDOC ---
History Of Present Illness 62 yr old male with history of alcohol abuse and depression, presents to the ER for suicidal ideation. Patient states he has been drinking all day in attempt to hurt himself. Patient denies auditory or visual hallucinations, HI, chest pain, SOB, nausea, vomiting or headache. Time Seen by Provider: 12/10/17 14:12 Chief Complaint (Nursing): Substance Abuse History Per: Patient History/Exam Limitations: no limitations Onset/Duration Of Symptoms: Days Current Symptoms Are (Timing): Still Present Modifying Factor(s): Alcohol Associated Symptoms: Depression, Suicidal Thoughts Past Medical History Reviewed: Historical Data, Nursing Documentation, Vital Signs Vital Signs: Last Vital Signs Temp 99.3 F 12/10/17 23:20 Pulse 76 12/10/17 23:20 Resp 18 12/10/17 23:20 BP 173/70 H 12/10/17 23:20 Pulse Ox 97 12/10/17 23:20 - Medical History PMH: Anemia (iron deficiency), Anxiety, Arthritis, Asthma, Benign Prostatic Hyperplasia, Bipolar Disorder, Bronchitis, CAD, Cardia Arrhythmia, COPD, Depression, Diabetes, Diverticulitis, Emphysema, Gastritis, Hepatitis (PATIENT STATED HE HAS HEPATITIS BUT COULD NOT RECALL WHICH ONE), HTN, Hypercholesterolemia, Hyperlipidemia, Migraine, Pancreatitis, Pneumonia, Chronic Kidney Disease (States recent diagnosis), Seizures (ETOH related), Sexually Transmitted Disease, Sleep Apnea Surgical History: CABG ((quadruple bypass) 2010), Coronary Stent - [facility] Procedures ALCOHOL DETOXIFICATION (03/12/15) CORONAR ARTERIOGR-2 CATH (07/24/15) CORONARY ARTERY STENT INSERTION [id number] (07/24/15) DETOXIFICATION SERVICES FOR SUBSTANCE ABUSE TREATMENT (11/09/17) ESOPHAGOGASTRODUODENOSCOPY [EGD] W/CLOSED BIOPSY (05/21/13) EXCISION OF DESCENDING COLON, ENDO, DIAGN (06/01/17) EXCISION OF STOMACH, ENDO, DIAGN (06/01/17) GROUP PSYCHOTHERAPY (11/29/17) INDIV PSYCHOTHERAPY FOR SUBSTANCE ABUSE TREATMENT, SUPPORT (11/09/17) INDIV PSYCHOTHERAPY FOR SUBSTANCE ABUSE, COGNITIV BEHAVIORAL (11/09/17) INDIV PSYCHOTHERAPY FOR SUBSTANCE ABUSE, MOTIVATION ENHANCE (11/29/17) INDIV PSYCHOTHERAPY FOR SUBSTANCE ABUSE, PSYCHOEDUCATION (11/29/17) INDIVID PSYCHOTHERAP NEC (11/04/14) INDIVIDUAL PSYCHOTHERAPY, BEHAVIORAL (01/17/16) INDIVIDUAL PSYCHOTHERAPY, COGNITIVE-BEHAVIORAL (11/19/16) INDIVIDUAL PSYCHOTHERAPY, SUPPORTIVE (10/02/16) INSERTION OF ONE VASCULAR STENT (07/24/15) IRRIGATION OF EAR (05/23/15) LEFT HEART CARDIAC CATH (07/19/15) LT HEART ANGIOCARDIOGRAM (07/19/15) OTHER GROUP THERAPY (11/04/14) PACKED CELL TRANSFUSION (05/21/13) PERCUTANEOUS TRANSLUMINAL CORONARY ANGIOPLASTY [PTCA] (07/24/15) PROCEDURE ON SINGLE VESSEL (07/24/15) PSYCHIAT DRUG THERAP NEC (11/04/14) RT HEART ANGIOCARDIOGRAM (07/22/15) RT HEART CARDIAC CATH (07/22/15) VACCINATION NEC (09/28/14) Family History: States: No Known Family Hx - Social History Hx Tobacco Use: Yes Hx Alcohol Use: Yes Hx Substance Use: No - Immunization History Hx Tetanus Toxoid Vaccination: Yes Hx Influenza Vaccination: Yes Hx Pneumococcal Vaccination: Yes Review Of Systems Except As Marked, All Systems Reviewed And Found Negative. Cardiovascular: Negative for: Chest Pain Respiratory: Negative for: Shortness of Breath Gastrointestinal: Negative for: Nausea, Vomiting Neurological: Negative for: Headache Psych: Positive for: Depression, Suicidal ideation Physical Exam - Physical Exam Appears: Non-toxic, No Acute Distress, Unkempt, Other (Etoh on breath) Skin: Warm, Dry, No Rash Head: Atraumatic, Normacephalic Eye(s): bilateral: Normal Inspection, PERRL, EOMI Oral Mucosa: Moist Lips: Normal Appearing Chest: Symmetrical, No Tenderness Cardiovascular: Rhythm Regular, No Murmur Respiratory: Normal Breath Sounds, No Rales, No Rhonchi, No Stridor, No Wheezing Gastrointestinal/Abdominal: Normal Exam, Soft, No Tenderness, No Guarding, No Rebound Extremity: Normal ROM, No Swelling Neurological/Psych: Oriented x3, Normal Speech, Normal Motor Gait: Steady ED Course And Treatment - Laboratory Results Result Diagrams: 12/10/17 15:02 12/10/17 15:02 Medical Decision Making Medical Decision Making: PLAN: * CXR * EKG * Alcohol Serum * Drug Screen * CBC * CMP * Urinalysis EKG shows NSR at 73bpm with LVH. Qtc:464. Denies chest pain or shortness of breath. Cxray negative. Labs show alcohol abuse. Will sign out to Dr. Keisha Chance to reevaluate when sober and follow-up psych recommendations. Disposition - Disposition Disposition Time: 01:00 Condition: UNKNOWN Forms: [facility] (Croatian) - Clinical Impression Clinical Impression: Alcohol dependence - Scribe Statement The provider has reviewed the documentation as recorded by the Hilarioibe Ledy Mixon Provider Attestation: All medical record entries made by the Hilarioibmiquel were at my direction and personally dictated by me. I have reviewed the chart and agree that the record accurately reflects my personal performance of the history, physical exam, medical decision making, and the department course for this patient. I have also personally directed, reviewed, and agree with the discharge instructions and disposition.
[2017-12-10 14:39] VITALS: RESP 18
[2017-12-10 15:08] LABS: BASO # 0.1 K/uL (0.0-0.2); BASO % 1.4 % (0.0-2.0); EOS # 0.1 K/uL (0.0-0.7); EOS % 1.4 % (0.0-4.0); HEMOGLOBIN 11.2 g/dL (12.0-18.0); LYMPH # 1.8 K/uL (1.0-4.3); LYMPH % 27.8 % (20.0-40.0); MEAN CELL VOLUME 77.1 fL (80.0-94.0); MEAN CORPUSCULAR HEMOGLOBIN 25.8 pg (27.0-31.0); MEAN CORPUSCULAR HGB CONC 33.4 g/dL (33.0-37.0); MEAN PLATELET VOLUME 7.6 fL (7.2-11.7); MONO # 0.7 K/uL (0.0-0.8); MONO % 11.1 % (0.0-10.0); NEUT # 3.7 K/uL (1.8-7.0); NEUT % 58.3 % (50.0-75.0); RBC 4.33 Mil/uL (4.40-5.90); RED CELL DISTRIBUTION WIDTH 17.3 % (11.5-14.5); WHITE BLOOD COUNT 6.4 K/uL (4.8-10.8)
[2017-12-10 15:25] LABS: ALT/SGPT 26 U/L (21-72); AST/SGOT 33 U/L (17-59); BLOOD UREA NITROGEN 6 mg/dL (9-20); CALCIUM 8.5 mg/dl (8.6-10.4); GFR AFRICAN-AMERICAN > 60; GFR NON-AFRICAN AMERICAN > 60
[2017-12-10 15:27] LABS: ACETAMINOPHEN < 10.0 ug/mL (10.0-30.0); SALICYLATE < 1.0 mg/dL 1
--- NOTE | 2017-12-10 15:43 | RAD ---
PROCEDURE: CHEST RADIOGRAPH, 1 VIEW HISTORY: Overdosed COMPARISON: 06/25/2017 FINDINGS: LUNGS: Shallow lung volumes The relative prominence to the right infrahilar bronchovascular marking are similar -enlarge prior these are bleed due to crowding and/or stable findings. No interval consolidation noted PLEURA: No pneumothorax or pleural fluid seen. CARDIOVASCULAR: Cardiomegaly. . Coronary artery bypass surgery OSSEOUS STRUCTURES: Midline sternotomy thoracic spondylosis VISUALIZED UPPER ABDOMEN: Normal. OTHER FINDINGS: None. IMPRESSION: No interval pathology noted
[2017-12-10 17:06] LABS: URINE BILIRUBIN NEGATIVE (NEGATIVE); URINE BLOOD NEGATIVE (NEGATIVE); URINE CLARITY Clear (Clear); URINE COLOR Colorless (YELLOW); URINE GLUCOSE (UA) NORMAL (Normal); URINE LEUKOCYTE ESTERASE NEG Leu/uL (Negative); URINE NITRATE NEGATIVE (NEGATIVE); URINE PROTEIN 1+ mg/dL (NEGATIVE); URINE UROBILINOGEN NORMAL mg/dL (0.2-1.0)
[2017-12-10 17:20] LABS: BARBITURATES, UR NEGATIVE (NEGATIVE); BENZODIAZEPINES, UR NEGATIVE (NEGATIVE); OPIATES, UR NEGATIVE (NEGATIVE); PHENCYCLIDINE, UR NEGATIVE (NEGATIVE)
--- NOTE | 2017-12-10 20:49 | CARD ---
APPROVED REPORT EKG Measurement Heart [id number] <Conclusion> Normal sinus rhythm Possible Left atrial enlargement Left ventricular hypertrophy Abnormal ECG
[2017-12-11] MEDS ORDERED: Albuterol 0.083% Inhal Sol (2.5 mg/3 mL) UD ONE (06:20)
[2017-12-11 07:36] VITALS: TEMP 98; O2SAT 98
--- NOTE | 2017-12-11 08:22 | PCM.PSYCH ---
Initial Psychiatric Evaluation - Initial Psychiatric Evaluation Type of Admission: Voluntary Legal Status: Capacity Chief Complaint (in patient's own words): "I am tired" History of Present Illness and Precipitating Events: The pt is seen in ED, chart reviewed and case discussed with multiple staff. He is a 62 y/o WM, living alone, single but has children, unemployed. He is well-known to the headline writer from previous admissions. Consult was requested bc of his psych sxs. He was kept overnight as he was intoxicated and suicidal. Now, he denies feeling suicidal, has no lans and is future oriented. He denied attempting suicide to this headline writer, not sure if he took his meds or overused them, but he is medically cleared and doesn't appear to be OD'ed on any psych meds. He has been drinking for 5-6 days and has no withdrawal sxs. He was recently d/c 'ed from [facility] and they assigned him a ICMS, who he spoke and will meet. He has meds, follow up at [facility] but he agreed to add [facility] in [place] and Adult day care, per headline writer's suggestion. No manic or psychotic sxs No drug use Past psych hx: Multiple admissions Medical hx: Obesity, see chart for more Family psych hx: no answer Past Psychiatric History - Past Psychiatric History Previous Treatment History: Inpatient Pertinent Medical Hx (Current Medical&Sleep Prob, Allergies): Allergies Allergy/AdvReac Type Severity Reaction Status Date / Time No Known Allergies Allergy Verified 12/10/17 14:20 Aspirin [Lo-Dose Aspirin EC] 81 mg PO DAILY 11/02/17 Topiramate [Topamax] 50 mg PO BID #60 tab 11/20/17 Pantoprazole Sodium [Protonix] 40 mg PO DAILY 11/29/17 Escitalopram [Lexapro] 10 mg PO DAILY #30 tab 12/03/17 Folic Acid 1 mg PO DAILY tab 12/03/17 Gabapentin [Neurontin] 100 mg PO TID #90 cap 12/03/17 Losartan [Cozaar] 50 mg PO DAILY #30 tab 12/03/17 Multimineral/Multivitamin [Therapeutic-M Tab] 1 tab PO DAILY tab 12/03/17 Tamsulosin HCl [Flomax] 0.4 mg PO HS #30 cap.er.24h 12/03/17 Thiamine [Vitamin B1 Tab] 100 mg PO DAILY tab 12/03/17 traZODone [Desyrel] 100 mg PO HS #30 tab 12/03/17 Review of Systems - Neurological Neurological: UNREMARKABLE - Psychiatric Psychiatric: Abnormal Sleep Pattern, Anhedonia, Anxiety, Difficulty Concentrating. absent: Depression, Hallucinations, Hopelessness, Suicidal Ideation Mental Status Examination - Personal Presentation Personal Presentation: Looks older than stated age - Affect Affect: Constricted - Motor Activity Motor Activity: Calm - Reliability in Providing Information Reliability in Providing Information: Good - Speech Speech: Organized - Mood Mood: Depressed, Anxious - Formal Thought Process Formal Thought Process: No Impairment - Cognitive Functions Orientation: Person, Place, Situation, Time Sensorium: Alert Attention/Concentration: Attentive Estimate of Intelligence: Average Judgement: Intact, as evidence by: Insight regarding need for hospitalization Memory: Recent impaired, as evidence by: Inability to recall events of the day, Remote impaired as evidenced by: Inability to recall sig life events - Risk Risk: Diminished functioning - Strength & Assets Inventory Strength & Assets Inventory: Cooperative - Limitations Limitations: Living alone DSM 5 DX - DSM 5 DSM 5 Diagnosis: Alcohol use d/o - severe Major depressive d/o - recurrent, last episode severe w/o psychosis r/o alcohol induced depression on top of MDD ALHAJI r/o pers. d/o (dependent?) - Recommended/Plan of Treatment Treatment Recommendations and Plan of Treatment: Cleared for d/c The pt is future-oriented He has an ICMS, referred to [facility] which is a day program ([facility] was out of network, he claimed) and he is also referred to AA, [facility] and Adult Daycare ( if [facility] does not accept him to [facility]) Continue meds Support and psychoed 38 min
[2017-12-11 09:11] VITALS: BP 195/85; PULSE 72
== END 2017-12-11 09:55 | disposition home or self-care (01) ==
LOC: C.ER 14:09
DX: F10.20 Alcohol dependence, uncomplicated (principal); E78.00 Pure hypercholesterolemia, unspecified; I12.9 Hypertensive chronic kidney disease with stage 1 through stage 4 chronic kidney disease, or unspecified chronic kidney disease; N18.9 Chronic kidney disease, unspecified; I25.10 Atherosclerotic heart disease of native coronary artery without angina pectoris; N40.0 Benign prostatic hyperplasia without lower urinary tract symptoms
CPT/HCPCS: 71045; 80053; 81001; 82948; 85025; 93005; 99285; G0480

== ENCOUNTER 2017-12-16 11:46 | Observation (INO) | payer MEDICARE, MEDICAID ==
[2017-12-16 11:46] VITALS: BMI 29.2
[2017-12-16] MEDS ORDERED: Sodium Chloride 0.9% 1,000 ML IV ONE (12:44)
[2017-12-16] MEDS ORDERED: Sodium Chloride 0.9% 1,000 ML ONE (12:59)
--- NOTE | 2017-12-16 13:14 | C.PDOC ---
History Of Present Illness 62-year-old male with PMHx includes Seizures, COPD, CAD (s/p quadruple bypass), presents to the emergency department for evaluation of alcohol withdrawal. Patient's last drink was last night, states he had two pints of rum. Patient currently c/o nausea associated with mild chest pain. He denies fever/chills, chest pain, shortness of breath, headache, loss of consciousness, dysuria, tremors. Time Seen by Provider: 12/16/17 12:33 Chief Complaint (Nursing): Substance Abuse History Per: Patient History/Exam Limitations: no limitations Current Symptoms Are (Timing): Still Present Modifying Factor(s): Alcohol Past Medical History Reviewed: Historical Data, Nursing Documentation, Vital Signs Vital Signs: Last Vital Signs Temp 97.5 F L 12/19/17 07:56 Pulse 72 12/19/17 07:56 Resp 20 12/19/17 07:56 BP 148/77 12/19/17 07:56 Pulse Ox 97 12/19/17 07:56 - Medical History PMH: Anemia (iron deficiency), Anxiety, Arthritis, Asthma, Benign Prostatic Hyperplasia, Bipolar Disorder, Bronchitis, CAD, Cardia Arrhythmia, COPD, Depression, Diabetes, Diverticulitis, Emphysema, Gastritis, Hepatitis (PATIENT STATED HE HAS HEPATITIS BUT COULD NOT RECALL WHICH ONE), HTN, Hypercholesterolemia, Hyperlipidemia, Migraine, Pancreatitis, Pneumonia, Chronic Kidney Disease (States recent diagnosis), Seizures (ETOH related), Sexually Transmitted Disease, Sleep Apnea Surgical History: CABG ((quadruple bypass) 2010), Coronary Stent - [facility] Procedures ALCOHOL DETOXIFICATION (03/12/15) CORONAR ARTERIOGR-2 CATH (07/24/15) CORONARY ARTERY STENT INSERTION [id number] (07/24/15) DETOXIFICATION SERVICES FOR SUBSTANCE ABUSE TREATMENT (12/18/17) ESOPHAGOGASTRODUODENOSCOPY [EGD] W/CLOSED BIOPSY (05/21/13) EXCISION OF DESCENDING COLON, ENDO, DIAGN (06/01/17) EXCISION OF STOMACH, ENDO, DIAGN (06/01/17) GROUP PSYCHOTHERAPY (11/29/17) INDIV PSYCHOTHERAPY FOR SUBSTANCE ABUSE TREATMENT, SUPPORT (11/09/17) INDIV PSYCHOTHERAPY FOR SUBSTANCE ABUSE, COGNITIV BEHAVIORAL (11/09/17) INDIV PSYCHOTHERAPY FOR SUBSTANCE ABUSE, MOTIVATION ENHANCE (11/29/17) INDIV PSYCHOTHERAPY FOR SUBSTANCE ABUSE, PSYCHOEDUCATION (11/29/17) INDIVID PSYCHOTHERAP NEC (11/04/14) INDIVIDUAL PSYCHOTHERAPY, BEHAVIORAL (01/17/16) INDIVIDUAL PSYCHOTHERAPY, COGNITIVE-BEHAVIORAL (11/19/16) INDIVIDUAL PSYCHOTHERAPY, SUPPORTIVE (10/02/16) INSERTION OF ONE VASCULAR STENT (07/24/15) IRRIGATION OF EAR (05/23/15) LEFT HEART CARDIAC CATH (07/19/15) LT HEART ANGIOCARDIOGRAM (07/19/15) OTHER GROUP THERAPY (11/04/14) PACKED CELL TRANSFUSION (05/21/13) PERCUTANEOUS TRANSLUMINAL CORONARY ANGIOPLASTY [PTCA] (07/24/15) PROCEDURE ON SINGLE VESSEL (07/24/15) PSYCHIAT DRUG THERAP NEC (11/04/14) RT HEART ANGIOCARDIOGRAM (07/22/15) RT HEART CARDIAC CATH (07/22/15) VACCINATION NEC (09/28/14) Family History: States: No Known Family Hx - Social History Hx Tobacco Use: Yes Hx Alcohol Use: Yes ("binge drinker") Hx Substance Use: No - Immunization History Hx Tetanus Toxoid Vaccination: Yes Hx Influenza Vaccination: Yes Hx Pneumococcal Vaccination: Yes Review Of Systems Except As Marked, All Systems Reviewed And Found Negative. Constitutional: Negative for: Fever, Chills Cardiovascular: Negative for: Chest Pain Respiratory: Negative for: Shortness of Breath Gastrointestinal: Positive for: Abdominal Pain. Negative for: Nausea, Vomiting , Diarrhea Genitourinary: Negative for: Dysuria, Hematuria Musculoskeletal: Negative for: Back Pain Neurological: Positive for: Seizures Physical Exam - Physical Exam Appears: Well, Non-toxic, No Acute Distress Skin: Warm, Dry, No Rash Head: Normacephalic Eye(s): bilateral: Other (nystagmus, horizontal) Oral Mucosa: Moist Neck: Normal, Normal ROM Chest: Symmetrical Cardiovascular: Rhythm Regular Respiratory: Normal Breath Sounds, No Rales, No Rhonchi, No Wheezing Gastrointestinal/Abdominal: Bowel Sounds, Soft, Tenderness (epigastric, mild TTP ), No Distention, No Guarding, No Rebound, Other ((-) Lam's, (-) McBurney's) Back: No CVA Tenderness Extremity: Normal ROM Neurological/Psych: Oriented x3, Other (no tremors) ED Course And Treatment - Laboratory Results Result Diagrams: 12/18/17 06:23 12/18/17 06:23 ECG: Interpreted By Me, Viewed By Me (NSR 74 bpm, normal axis, T wave inversions I, II< aVL, V5-V6, no acute ST changes) ECG Interpretation: Abnormal O2 Sat by Pulse Oximetry: 100 (RA) Pulse Ox Interpretation: Normal Progress Note: EKG, Bloodwork, and UA ordered and reviewed. Patient given IV NS bolus, IV ativan + PO Libiurm (after developed mild tremors), and PO Cozaar. - Physician Consult Information Physician Contacted: Dennys Vasquez Outcome Of Conversation: Discussed patient with PMD, agrees with admission for alcohol dependence/withdrawal, chest pain. Disposition - Disposition Disposition: HOSPITALIZED Disposition Time: 14:28 Condition: STABLE - Clinical Impression Clinical Impression: Chest pain, Alcohol dependence, Alcohol withdrawal - Scribe Statement The provider has reviewed the documentation as recorded by the Scribe (Iain Santizo) All medical record entries made by the Scribe were at my direction and personally dictated by me. I have reviewed the chart and agree that the record accurately reflects my personal performance of the history, physical exam, medical decision making, and the department course for this patient. I have also personally directed, reviewed, and agree with the discharge instructions and disposition. Decision To Admit - Pt Status Changed To: Hospital Disposition Of: Observation - . Bed Request Type: Telemetry Admitting Physician: Dennys Vasquez Patient Diagnosis: Chest pain, Alcohol abuse, Alcohol withdrawal
[2017-12-16 13:22] LABS: BASO # 0.1 K/uL (0.0-0.2); BASO % 0.6 % (0.0-2.0); EOS # 0.1 K/uL (0.0-0.7); EOS % 0.8 % (0.0-4.0); LYMPH # 1.4 K/uL (1.0-4.3); LYMPH % 15.8 % (20.0-40.0); MEAN CELL VOLUME 76.4 fL (80.0-94.0); MEAN CORPUSCULAR HEMOGLOBIN 24.7 pg (27.0-31.0); MEAN CORPUSCULAR HGB CONC 32.3 g/dL (33.0-37.0); MEAN PLATELET VOLUME 8.2 fL (7.2-11.7); MONO # 0.7 K/uL (0.0-0.8); MONO % 7.9 % (0.0-10.0); NEUT # 6.6 K/uL (1.8-7.0); NEUT % 74.9 % (50.0-75.0); RBC 4.46 Mil/uL (4.40-5.90); RED CELL DISTRIBUTION WIDTH 17.1 % (11.5-14.5); WHITE BLOOD COUNT 8.8 K/uL (4.8-10.8)
[2017-12-16 13:32] LABS: ALBUMIN 3.8 g/dL (3.5-5.0); ALT/SGPT 25 U/L (21-72); AST/SGOT 27 U/L (17-59); BLOOD UREA NITROGEN 10 mg/dL (9-20); CALCIUM 8.7 mg/dl (8.6-10.4); GFR AFRICAN-AMERICAN > 60; GFR NON-AFRICAN AMERICAN > 60
[2017-12-16 13:43] LABS: CK-MB 4.26 ng/mL (0.0-3.38)
[2017-12-16 15:58] LABS: URINE BILIRUBIN NEGATIVE (NEGATIVE); URINE CLARITY Clear (Clear); URINE COLOR YELLOW (YELLOW); URINE GLUCOSE (UA) NEGATIVE (Normal)
[2017-12-16 15:59] LABS: PH,URINE 1.025 (5.0-8.0); URINE BLOOD NEGATIVE (NEGATIVE); URINE LEUKOCYTE ESTERASE NEGATIVE Leu/uL (Negative); URINE NITRATE NEGATIVE (NEGATIVE); URINE PROTEIN NEGATIVE (NEGATIVE); URINE UROBILINOGEN 0.2 mg/dL (0.2-1.0)
[2017-12-16 16:14] LABS: BARBITURATES, UR NEGATIVE (NEGATIVE); OPIATES, UR NEGATIVE (NEGATIVE); PHENCYCLIDINE, UR NEGATIVE (NEGATIVE)
[2017-12-16] MEDS: Folic Acid 1 MG, Thiamine 100 MG, Multivitamin (MVI) 10 ML in Dextrose 5% In Water 1,00... IV SCH (16:30)
[2017-12-16 16:39] LABS: BENZODIAZEPINES, UR POSITIVE (NEGATIVE)
--- NOTE | 2017-12-16 23:55 | CP.PCM.HP ---
History of Present Illness - History of Present Illness History of Present Illness: CC: shaking, nervousness 62-year-old male, PMHx includes chronic depression, chronic heavy alcoholic, Seizures, COPD, CAD (s/p quadruple bypass), presents to the emergency department sent by me for evaluationof alcohol withdrawal. Patients last drink was last night, states he had two pints of rum. Patient notes nausea that is associated with mild chest pain. Denies fever, chills, chest pain, shortness of breath, headache, loss of consciousness, or any other associated symptoms. No other complaints at this time. Present on Admission - Present on Admission Any Indicators Present on Admission: Yes Review of Systems - Review of Systems Systems not reviewed;Unavailable: Acuity of Condition, Intoxicated - Constitutional Constitutional: Anorexia, Fatigue, Lethargy, Malaise - Cardiovascular Cardiovascular: Diaphoresis, Dyspnea - Respiratory Respiratory: Chest Congestion - Gastrointestinal Gastrointestinal: absent: As Per HPI, Abdominal Pain, Belching, Bloating, Change in Bowel Habits, Change in Stool Character, Coffee Ground Emesis, Constipation, Cramping, Diarrhea, Dyspepsia, Dysphagia, Early Satiety, Excessive Flatus, Fecal Incontinence, Heartburn, Hematemesis, Hematochezia, Loose Stools, Melena, Nausea, Odynophagia, Temesmus, Vomiting, Other - Genitourinary Genitourinary: absent: As Per HPI, Change in Urinary Stream, Difficulty Urinating, Dysuria, Flank Pain, Hematuria, Pyuria, Nocturia, Urinary Incontinence, Urinary Frequency, Urinary Hesitance, Urinary Urgency, Voiding Freq/Small Amts, Freq UTI, Hx Renal/Bladder Calculi, Hx /Renal Surgery, Bladder Distension, Other - Musculoskeletal Musculoskeletal: Abnormal Gait, Limited Range of Motion, Muscle Weakness, Myalgias, Stiffness - Integumentary Integumentary: absent: As Per HPI, Acne, Alopecia, Bleeding Lesions, Change in Hair, Change in Nails, Change in Pigmentation, Changing Lesions, Dry Skin, Erythema, Furuncle, Hirsutism, Lesions, New Lesions, Non-Healing Lesions, Photosensitivity, Pruritus, Rash, Skin Pain, Skin Ulcer, Sores, Striae, Swelling , Unusual Bruising, Wounds, Jaundice, Other - Neurological Neurological: Abnormal Gait, Lack of Coordination - Psychiatric Psychiatric: Anxiety, Confusion, Depression - Endocrine Endocrine: absent: As Per HPI, Change in Body Appearance, Change in Libido, Cold Intolorance, Deepening of Voice, Excessive Sweating, Fatigue, Flushing, Heat Intolorance, Increase in Ring/Shoe/Hat Size, Palpitations, Polydipsia, Polyphagia, Polyuria, Other Past Patient History - Infectious Disease Hx of Infectious Diseases: None - Past Medical History & Family History Past Medical History?: Yes - Past Social History Smoking Status: Heavy Smoker > 10 Cigarettes Daily - CARDIAC Hx Cardia Arrhythmia: Yes Hx Hypercholesterolemia: Yes Hx Hypertension: Yes - PULMONARY Hx Asthma: Yes Hx Bronchitis: Yes Hx Chronic Obstructive Pulmonary Disease (COPD): Yes Hx Emphysema: Yes Hx Pneumonia: Yes Hx Sleep Apnea: Yes - NEUROLOGICAL Hx Migraine: Yes Hx Seizures: Yes (ETOH related) - HEENT Hx HEENT Problems: No - RENAL Hx Chronic Kidney Disease: Yes (States recent diagnosis) - ENDOCRINE/METABOLIC Hx Endocrine Disorders: Yes Hx Diabetes Mellitus Type 2: Yes - HEMATOLOGICAL/ONCOLOGICAL Hx Anemia: Yes (iron deficiency) - INTEGUMENTARY Hx Dermatological Problems: No - MUSCULOSKELETAL/RHEUMATOLOGICAL Hx Arthritis: Yes - GASTROINTESTINAL Hx Diverticulitis: Yes Hx Gastritis: Yes Hx Pancreatitis: Yes - GENITOURINARY/GYNECOLOGICAL Hx Sexually Transmitted Disorders: Yes - PSYCHIATRIC Hx Anxiety: Yes Hx Bipolar Disorder: Yes Hx Depression: Yes Hx Substance Use: No - SURGICAL HISTORY Hx Coronary Artery Bypass Graft: Yes ((quadruple bypass) 2010) Hx Coronary Stent: Yes - ANESTHESIA Hx Anesthesia: Yes Hx Anesthesia Reactions: No Hx Malignant Hyperthermia: No Meds Allergies/Adverse Reactions: Allergies Allergy/AdvReac Type Severity Reaction Status Date / Time No Known Allergies Allergy Verified 12/10/17 14:20 Physical Exam - Constitutional Appears: Toxic, No Acute Distress - Head Exam Head Exam: ATRAUMATIC, NORMAL INSPECTION, NORMOCEPHALIC - Eye Exam Eye Exam: EOMI, Normal appearance, PERRL Pupil Exam: NORMAL ACCOMODATION, PERRL - Respiratory Exam Respiratory Exam: Clear to Auscultation Bilateral, NORMAL BREATHING PATTERN - Cardiovascular Exam Cardiovascular Exam: REGULAR RHYTHM - GI/Abdominal Exam GI & Abdominal Exam: Normal Bowel Sounds, Soft. absent: Tenderness - Rectal Exam Rectal Exam: Deferred - Neurological Exam Neurological exam: Alert, CN II-XII Intact, Normal Gait, Oriented x3, Reflexes Normal - Psychiatric Exam Psychiatric exam: Anxious, Depressed - Skin Skin Exam: Dry, Intact, Normal Color, Warm Results - Vital Signs Recent Vital Signs: Last Vital Signs Temp 98.4 F 12/16/17 23:31 Pulse 78 12/16/17 23:31 Resp 17 12/16/17 23:31 BP 170/75 H 12/16/17 23:31 Pulse Ox 98 12/16/17 23:31 - Labs Result Diagrams: 12/16/17 13:15 12/16/17 13:15 Labs: Laboratory Results - last 24 hr 12/16/17 12/16/17 12/16/17 13:15 13:15 15:48 WBC 8.8 RBC 4.46 Hgb 11.0 L Hct 34.1 L MCV 76.4 L MCH 24.7 L MCHC 32.3 L RDW 17.1 H Plt Count 225 MPV 8.2 Neut % (Auto) 74.9 Lymph % (Auto) 15.8 L Rob[place] % (Auto) 7.9 Eos % (Auto) 0.8 Baso % (Auto) 0.6 Neut # (Auto) 6.6 Lymph # (Auto) 1.4 [place] # (Auto) 0.7 Eos # (Auto) 0.1 Baso # (Auto) 0.1 Sodium 135 Potassium 3.8 Chloride 99 Carbon Dioxide 30 Anion Gap 10 BUN 10 Creatinine 0.8 Est GFR ( Amer) > 60 Est GFR (Non-Af Amer) > 60 Random Glucose 101 Calcium 8.7 Total Bilirubin 0.6 AST 27 ALT 25 Alkaline Phosphatase 64 Total Creatine Kinase 106 CK-MB (Mass) 4.26 H Troponin I 0.0200 Total Protein 7.6 Albumin 3.8 Globulin 3.7 Albumin/Globulin Ratio 1.0 Urine Color Yellow Urine Clarity Clear Urine pH 1.025 Ur Specific [place] 1.025 Urine Protein Negative Urine Glucose (UA) Negative Urine Ketones Negative Urine Blood Negative Urine Nitrate Negative Urine Bilirubin Negative Urine Urobilinogen 0.2 Ur Leukocyte Esterase Negative Urine WBC (Auto) < 1 Urine RBC (Auto) 1 Urine Opiates Screen Urine Methadone Screen Ur Barbiturates Screen Ur Phencyclidine Scrn Ur Amphetamines Screen U Benzodiazepines Scrn U Oth Cocaine Metabols U Cannabinoids Screen Alcohol, Quantitative < 10 12/16/17 15:48 WBC RBC Hgb Hct MCV MCH MCHC RDW Plt Count MPV Neut % (Auto) Lymph % (Auto) Rob[place] % (Auto) Eos % (Auto) Baso % (Auto) Neut # (Auto) Lymph # (Auto) [place] # (Auto) Eos # (Auto) Baso # (Auto) Sodium Potassium Chloride Carbon Dioxide Anion Gap BUN Creatinine Est GFR ( Amer) Est GFR (Non-Af Amer) Random Glucose Calcium Total Bilirubin AST ALT Alkaline Phosphatase Total Creatine Kinase CK-MB (Mass) Troponin I Total Protein Albumin Globulin Albumin/Globulin Ratio Urine Color Urine Clarity Urine pH Ur Specific [place] Urine Protein Urine Glucose (UA) Urine Ketones Urine Blood Urine Nitrate Urine Bilirubin Urine Urobilinogen Ur Leukocyte Esterase Urine WBC (Auto) Urine RBC (Auto) Urine Opiates Screen Negative Urine Methadone Screen Negative Ur Barbiturates Screen Negative Ur Phencyclidine Scrn Negative Ur Amphetamines Screen Negative U Benzodiazepines Scrn Positive U Oth Cocaine Metabols Negative U Cannabinoids Screen Negative Alcohol, Quantitative Assessment & Plan (1) Alcohol abuse with alcohol-induced disorder Status: Acute (2) Diarrhea Status: Acute (3) Drug abuse Status: Acute (4) Seizure disorder Status: Acute (5) COPD (chronic obstructive pulmonary disease) Status: Chronic
--- NOTE | 2017-12-17 05:48 | CON ---
DATE: 12/16/2017 CHIEF COMPLAINT AND REASON FOR CONSULTATION: The patient is referred by Dr. Vasquez for co-management of alcohol dependence, alcohol withdrawal, and depression. HISTORY OF PRESENT ILLNESS: This is the case of 62-year-old male who is well known to me for numerous consults in the past. The patient is recovering depression, alcohol dependence as well as seizures. The patient was admitted here after sent by his doctor for the patient being complaining of alcohol withdrawal, although, his blood alcohol level on admission was trending at 24. The patient states that he has been drinking two pints of rum. The patient well known to me. He has also history of multiple psych admissions secondary to depression and suicidal attempts. The patient has multiple suicidal attempts. He was recently admitted to [place] and treated by Dr. Puentes. He took an overdose of gabapentin, and the patient was admitted for few days. He was just recently released and also has had multiple ER visits. He was seen lately by Dr. Avila. The patient is unable to maintain long periods of sobriety and keeps on drinking alcohol with his medication. The patient states that he is feeling depressed. He is not sleeping. He was prescribed on his last admission at [place] trazodone 100 mg at bedtime and also was given Lexapro 10 mg daily and was given also Topamax 50 mg b.i.d and Neurontin 100 mg t.i.d. The patient is unable to maintain long periods of sobriety. PAST PSYCHIATRIC HISTORY: History of depression and alcohol dependence, history of multiple psych admissions, history of multiple drug overdoses. ALLERGIES: NO KNOWN ALLERGIES. PAST MEDICAL HISTORY: The patient has multiple medical problems, history of pancreatitis, history of GERD, history of gastritis, history of CAD. The patient has history of CABG four vessel, history of diabetes, seizure, history of hypertension, history of multiple suicidal attempts. PSYCHOSOCIAL HISTORY: The patient is disabled. Lives with his family. The patient has chronic issues with his family especially his daughter, his as well as the other children. PHYSICAL EXAMINATION: VITAL SIGNS: Temperature is 98.8, pulse rate is 71, blood pressure early was 185/87, respirations 18, and oxygen saturation is 98%. MEDICATIONS: List of current medications the patient taking is Ativan, losartan, trazodone 100 mg at bedtime, aspirin, Flomax, folic acid, Lexapro 10 mg daily, and Librium 25 q. 4 hours p.r.n., Neurontin 100 mg three times a day, Topamax 50 mg daily, thiamine. LABORATORY DATA: Review of his labs, the patient's H and H is 11 and 34.1. His hemoglobin A1c is 5.4, ammonia is 34. The patient's amylase is 68, B12 is 295, folate is greater than 20. Free T4 is 0.93, thyroxine is 6.20. UA is +1 for protein and then toxicology is negative. Blood alcohol level is 324. REVIEW OF SYSTEMS: GENERAL: The patient is alert, verbal, feeling anxious, he said he is feeling shaky, he is asking for some medication. SKIN: No diaphoresis. HEENT: No headache or dizziness. NECK: Supple. RESPIRATORY: No dyspnea. CARDIOVASCULAR: Chest pain. GASTROINTESTINAL: The patient complaining of abdominal abscess. No nausea, no vomiting. EXTREMITIES: Complaining of feeling shaky. MUSCULOSKELETAL: Feels weak. NEUROLOGIC: Alert and oriented x3. GENITOURINARY: No dysuria. MENTAL STATUS EXAMINATION: Elderly male who looks stated age. The patient is alert, oriented x3. His mood is chronically depressed, anxious, dysphoric. Affect is reactive. Speech spontaneous. Thought process coherent. Thought content, no overt psychosis, although the patient has history of multiple suicidal attempts in the past. No paranoia. No suicidal or homicidal ideation. Attention and memory seem to be limited. Insight and judgment limited. Impulse control is fair at this time. IMPRESSION: History of recurrent depression as well as history of alcohol dependence, alcohol withdrawal. PLAN AND RECOMMENDATIONS: The patient is seen, meds reviewed. The patient admitted. We will continue his trazodone 100 mg at bedtime and Lexapro 10 mg daily, as well as the Neurontin 100 mg two times a day, multivitamins, Topamax 50 mg b.i.d. We will give him Librium 50 mg q. 6 for now and Librium 50 mg q. 4 hours p.r.n. as the patient has history of severe withdrawal in the past and then Ativan 2 mg IV q. 4 p.r.n. for severe alcohol withdrawal. Continue other medications as outlined. The patient's medications needs to be monitored, especially the patient has history of multiple suicide attempts. He should not have any medication in his possession. This patient is a SAAD patient and may benefit really if he will need to go to an inpatient alcohol rehabilitation to stabilize his alcohol problem as well as the depression. The patient has been bouncing back and forth in the emergency room, unable to keep the sobriety. I do suggest especially with his history, the patient may benefit from going to an inpatient alcohol rehabilitation if the patient is motivated and once he is medically cleared. We will discuss with the patient as well as with Dr. Vasquez once the patient is more medically stable. For now, we will detox the patient as needed. Thank you for the consult. Scott Acosta MD MTDD
[2017-12-17] MEDS: Enoxaparin 40 mg Syringe SC SCH (11:02)
[2017-12-17] MEDS: Multivitamin With Minerals Tab PO SCH (11:04)
[2017-12-17] MEDS: Pantoprazole 40 mg EC Tab PO SCH (11:04)
[2017-12-17] MEDS: Folic Acid 1 MG, Thiamine 100 MG, Multivitamin (MVI) 10 ML in Dextrose 5% In Water 1,00... IV SCH (11:05)
--- NOTE | 2017-12-17 14:27 | PN ---
DATE: 12/17/2017 SUBJECTIVE: The patient is seen in the emergency room. He is still pending telemetry admission, but he is doing well. The patient is much calmer. No chest pain. He is eating. He has been compliant with meds. He is tremulous. MEDICATIONS: The patient is taking Librium 50 mg q. 6h. as well as Librium 50 mg q. 4h. p.r.n. and then on trazodone 100 mg at bedtime, Ativan 2 mg p.o. q. 4h. p.r.n. He seems to be doing well. REVIEW OF SYSTEMS: GENERAL: He is alert and oriented x3, eating his meals. SKIN: No diaphoresis. HEENT: No headache. No dizziness. NECK: Supple. RESPIRATORY: No dyspnea. CARDIOVASCULAR: No chest pain. GASTROINTESTINAL: Intact. He is now eating well. EXTREMITIES: The patient is moving extremities. NEUROLOGIC: Alert and oriented x3. GENITOURINARY: No urinary problems. PHYSICAL EXAMINATION: VITAL SIGNS: Temperature is 97.6, pulse rate 70, blood pressure 134/65, respirations 18, oxygen saturation is 98%. MENTAL STATUS EXAMINATION: Elderly male, who looks stated age, oriented x3. Mood is clinically depressed. Affect is reactive. Speech is spontaneous. Thought process, coherent. Thought content, the patient is not sure what he is going to do after this admission. No psychosis. No suicidal or homicidal ideation. Attention and memory seems to be fair. Insight and judgment, fair. Impulse control is fair. IMPRESSION: Alcohol dependence and alcohol withdrawal, history of recurrent depression. PLAN AND RECOMMENDATIONS: Patient is seen, meds reviewed. Continue present management. Continue present psych meds as ordered. The patient also is on Lexapro 10 mg daily. Continue treatment plan as outlined. The patient is awaiting admission to the telemetry floor. Scott Acosta MD
--- NOTE | 2017-12-17 22:18 | CARD ---
APPROVED REPORT EKG Measurement Heart [id number] <Conclusion> Normal sinus rhythm Possible Left atrial enlargement Nonspecific ST and T wave abnormality Abnormal ECG
--- NOTE | 2017-12-17 22:47 | CP.PCM.PN ---
Subjective - Date & Time of Evaluation Date of Evaluation: 12/17/17 Time of Evaluation: 18:00 - Subjective Subjective: Pt seen & evaluated Objective - Vital Signs/Intake and Output Vital Signs (last 24 hours): Temp Pulse Resp BP Pulse Ox 98.4 F 64 18 121/75 97 12/17/17 15:31 12/17/17 15:31 12/17/17 15:31 12/17/17 15:31 12/17/17 15:31 Intake and Output: 12/17/17 12/18/17 18:59 06:59 Intake Total 960 Balance 960 - Medications Medications: Current Medications Aspirin (Ecotrin) 81 mg PO DAILY [facility] Last Admin: 12/17/17 11:05 Dose: 81 mg Chlordiazepoxide (Librium) 50 mg PO Q4H PRN PRN Reason: alcohol withdrawal Last Admin: 12/17/17 03:03 Dose: 50 mg Chlordiazepoxide (Librium) 50 mg PO Q6H [facility] Last Admin: 12/17/17 17:21 Dose: 50 mg Enoxaparin Sodium (Lovenox) 40 mg SC DAILY [facility] Last Admin: 12/17/17 11:02 Dose: 40 mg Escitalopram Oxalate (Lexapro) 10 mg PO DAILY [facility] Last Admin: 12/17/17 11:18 Dose: 10 mg Folic Acid (Folic Acid) 1 mg PO DAILY [facility] Last Admin: 12/17/17 11:05 Dose: 1 mg Gabapentin (Neurontin) 100 mg PO TID [facility] Last Admin: 12/17/17 17:21 Dose: 100 mg Folic Acid 1 mg/ Thiamine HCl 100 mg/ Multivitamins/Vitamin C 10 ml/ Dextrose 1 ,011.2 mls @ 80 mls/hr IV DAILY [facility] Last Admin: 12/17/17 11:05 Dose: 80 mls/hr Lorazepam (Ativan) 2 mg IVP Q4H PRN PRN Reason: Anxiety Losartan Potassium (Cozaar) 50 mg PO DAILY [facility] Last Admin: 12/17/17 11:03 Dose: 50 mg Multivitamins/Minerals (Therapeutic-M Tab) 1 tab PO DAILY [facility] Last Admin: 12/17/17 11:04 Dose: 1 tab Pantoprazole Sodium (Protonix Ec Tab) 40 mg PO DAILY [facility] Last Admin: 12/17/17 11:04 Dose: 40 mg Tamsulosin HCl (Flomax) 0.4 mg PO [facility] Last Admin: 12/17/17 21:58 Dose: 0.4 mg Thiamine HCl (Vitamin B1 Tab) 100 mg PO DAILY [facility] Last Admin: 12/17/17 11:02 Dose: 100 mg Topiramate (Topamax) 50 mg PO BID [facility] Last Admin: 12/17/17 17:21 Dose: 50 mg Trazodone HCl (Desyrel) 100 mg PO [facility] Last Admin: 12/17/17 21:58 Dose: 100 mg - Labs Labs: 12/16/17 13:15 12/16/17 13:15 Assessment and Plan (1) Alcohol abuse with alcohol-induced disorder Status: Acute (2) Diarrhea Status: Acute (3) Drug abuse Status: Acute (4) Seizure disorder Status: Acute (5) COPD (chronic obstructive pulmonary disease) Status: Chronic
[2017-12-18 00:43] VITALS: RESP 20
[2017-12-18 06:31] LABS: HEMOGLOBIN 10.5 g/dL (12.0-18.0); MEAN CELL VOLUME 77.5 fL (80.0-94.0); MEAN CORPUSCULAR HEMOGLOBIN 24.3 pg (27.0-31.0); MEAN CORPUSCULAR HGB CONC 31.3 g/dL (33.0-37.0); MEAN PLATELET VOLUME 8.6 fL (7.2-11.7); RBC 4.34 Mil/uL (4.40-5.90); RED CELL DISTRIBUTION WIDTH 16.8 % (11.5-14.5); WHITE BLOOD COUNT 5.8 K/uL (4.8-10.8)
[2017-12-18 06:44] LABS: ALBUMIN 3.3 g/dL (3.5-5.0); ALT/SGPT 21 U/L (21-72); AST/SGOT 22 U/L (17-59); BLOOD UREA NITROGEN 10 mg/dL (9-20); CALCIUM 8.7 mg/dl (8.6-10.4); GFR AFRICAN-AMERICAN > 60; GFR NON-AFRICAN AMERICAN > 60
[2017-12-18] MEDS: Multivitamin With Minerals Tab PO SCH (09:29)
[2017-12-18] MEDS: Pantoprazole 40 mg EC Tab PO SCH (09:29)
[2017-12-18] MEDS: Folic Acid 1 MG, Thiamine 100 MG, Multivitamin (MVI) 10 ML in Dextrose 5% In Water 1,00... IV SCH (09:30)
[2017-12-18] MEDS: Enoxaparin 40 mg Syringe SC SCH (09:30)
[2017-12-18] MEDS ORDERED: Ferric Sodium Gluconat Complex 62.5 mg/5 ml Vial IVPB SCH (14:30)
[2017-12-18] MEDS ORDERED: Ferric Sodium Gluconat Complex 125 MG in Sodium Chloride 0.9% 100 ML IVPB SCH (15:00)
--- NOTE | 2017-12-18 15:14 | CP.PCM.PN ---
Subjective - Date & Time of Evaluation Date of Evaluation: 12/18/17 Time of Evaluation: 11:00 - Subjective Subjective: patient seen today , denies any chest pain, c/o very weak Objective - Vital Signs/Intake and Output Vital Signs (last 24 hours): Temp Pulse Resp BP Pulse Ox 98.4 F 73 20 109/58 L 95 12/18/17 08:00 12/18/17 08:00 12/18/17 08:00 12/18/17 08:00 12/18/17 08:00 Intake and Output: 12/18/17 12/18/17 06:59 18:59 Intake Total 1200 Balance 1200 - Medications Medications: Current Medications Aspirin (Ecotrin) 81 mg PO DAILY [facility] Last Admin: 12/18/17 09:30 Dose: 81 mg Chlordiazepoxide (Librium) 50 mg PO Q4H PRN PRN Reason: alcohol withdrawal Last Admin: 12/17/17 03:03 Dose: 50 mg Chlordiazepoxide (Librium) 50 mg PO Q6H [facility] Last Admin: 12/18/17 10:05 Dose: 50 mg Enoxaparin Sodium (Lovenox) 40 mg SC DAILY [facility] Last Admin: 12/18/17 09:30 Dose: 40 mg Escitalopram Oxalate (Lexapro) 10 mg PO DAILY [facility] Last Admin: 12/18/17 09:30 Dose: 10 mg Folic Acid (Folic Acid) 1 mg PO DAILY [facility] Last Admin: 12/18/17 09:29 Dose: 1 mg Gabapentin (Neurontin) 100 mg PO TID [facility] Last Admin: 12/18/17 14:49 Dose: 100 mg Folic Acid 1 mg/ Thiamine HCl 100 mg/ Multivitamins/Vitamin C 10 ml/ Dextrose 1 ,011.2 mls @ 80 mls/hr IV DAILY [facility] Last Admin: 12/18/17 09:30 Dose: 80 mls/hr Ferric Sodium Gluconate Complex 125 mg/ Sodium Chloride 110 mls @ 110 mls/hr IVPB Q24H [facility] Stop: 12/26/17 15:01 Lorazepam (Ativan) 2 mg IVP Q4H PRN PRN Reason: Anxiety Losartan Potassium (Cozaar) 50 mg PO DAILY [facility] Last Admin: 12/18/17 09:29 Dose: 50 mg Multivitamins/Minerals (Therapeutic-M Tab) 1 tab PO DAILY [facility] Last Admin: 12/18/17 09:29 Dose: 1 tab Pantoprazole Sodium (Protonix Ec Tab) 40 mg PO DAILY [facility] Last Admin: 12/18/17 09:29 Dose: 40 mg Tamsulosin HCl (Flomax) 0.4 mg PO HS [facility] Last Admin: 12/17/17 21:58 Dose: 0.4 mg Thiamine HCl (Vitamin B1 Tab) 100 mg PO DAILY [facility] Last Admin: 12/18/17 09:30 Dose: 100 mg Topiramate (Topamax) 50 mg PO BID [facility] Last Admin: 12/18/17 09:30 Dose: 50 mg Trazodone HCl (Desyrel) 100 mg PO HS [facility] Last Admin: 12/17/17 21:58 Dose: 100 mg - Labs Labs: 12/18/17 06:23 12/18/17 06:23 Assessment and Plan - Assessment and Plan (Free Text) Assessment: A/P 62-year-old male, PMHx includes Seizures, COPD, CAD (s/p quadruple bypass), admitted with alcohol withdrawal Dr. Jaime on consult for alcohol withdrawal and depression seen by Dr. Jaime , D/W Dr. Jaime , patient not stable for discharge , will change observation to inpatient status for further management The above plan discussed with Dr. Vasquez
--- NOTE | 2017-12-18 20:46 | PN ---
SUBJECTIVE: The patient is resting comfortably in his room. Offers no complaints. He said he is feeling better. The patient is undergoing Librium detox. He has been compliant with medications. No reports of chest pain. VITAL SIGNS: Temperature is 98.4, pulse rate is 73, blood pressure is 109/58, respirations 20, and oxygen saturation is 95%. MEDICATIONS: The patient is currently on Librium 50 mg q.6 and Ativan p.r.n., as well as trazodone and Lexapro. The patient seems to be doing better. We will try to lower the dose of his Librium in the morning. REVIEW OF SYSTEMS: GENERAL: He is sleepy but arousable, seen in his room, in no acute respiratory distress. No behavioral problems noted. SKIN: No diaphoresis. HEENT: No headache. No dizziness. NECK: Supple. RESPIRATORY: No dyspnea. CARDIOVASCULAR: No chest pain. GASTROINTESTINAL: No nausea. No vomiting. EXTREMITIES: Tremors improving. MUSCULOSKELETAL: has generalized debility. NEUROLOGIC: Sleepy but arousable, oriented x3. LABORATORY DATA: His last blood sugar was 100. UA is negative. MENTAL STATUS EXAMINATION: Elderly male who looks stated age, sleepy but arousable, oriented x3. Mood is dysphoric. Affect is reactive. Speech is spontaneous. Thought process, coherent. Thought content, no suicidal or homicidal ideation. No psychosis. Attention and memory seem to be fair. Insight and judgment fair. Impulse control is fair at this time. I did discuss with him, the patient may go to [facility] as the patient has history of depression and alcohol dependence, unable to maintain long periods of sobriety or in the community, but the patient is still reluctant at this time. He is also not medically cleared. We will try to follow it up once the patient is almost completed his detox. For now, we will keep with same medication. IMPRESSION: History of recurrent depression, as well as history of alcohol dependence and alcohol withdrawal. PLAN AND RECOMMENDATIONS: The patient is seen, medications reviewed. Continue treatment plan as outlined. Continue present medications. We will try to refer him to [facility] inpatient unit once he is more medically stable. Also, he may need clearance from cardio. Scott Acosta, MD [facility] # [id number] MTDCathy
--- NOTE | 2017-12-18 22:37 | CP.PCM.PN ---
Subjective - Date & Time of Evaluation Date of Evaluation: 12/18/17 Time of Evaluation: 18:00 - Subjective Subjective: Pt is feeling better, he is shaky, nervous, recievd Iv ativan and is feeling better Objective - Vital Signs/Intake and Output Vital Signs (last 24 hours): Temp Pulse Resp BP Pulse Ox 98.0 F 62 20 102/62 100 12/18/17 15:00 12/18/17 16:00 12/18/17 15:00 12/18/17 15:00 12/18/17 15:00 - Medications Medications: Current Medications Aspirin (Ecotrin) 81 mg PO DAILY [facility] Last Admin: 12/18/17 09:30 Dose: 81 mg Chlordiazepoxide (Librium) 50 mg PO Q4H PRN PRN Reason: alcohol withdrawal Last Admin: 12/17/17 03:03 Dose: 50 mg Chlordiazepoxide (Librium) 50 mg PO Q6H [facility] Last Admin: 12/18/17 17:29 Dose: 50 mg Enoxaparin Sodium (Lovenox) 40 mg SC DAILY [facility] Last Admin: 12/18/17 09:30 Dose: 40 mg Escitalopram Oxalate (Lexapro) 10 mg PO DAILY [facility] Last Admin: 12/18/17 09:30 Dose: 10 mg Folic Acid (Folic Acid) 1 mg PO DAILY [facility] Last Admin: 12/18/17 09:29 Dose: 1 mg Gabapentin (Neurontin) 100 mg PO TID [facility] Last Admin: 12/18/17 17:29 Dose: 100 mg Folic Acid 1 mg/ Thiamine HCl 100 mg/ Multivitamins/Vitamin C 10 ml/ Dextrose 1 ,011.2 mls @ 80 mls/hr IV DAILY [facility] Last Admin: 12/18/17 09:30 Dose: 80 mls/hr Ferric Sodium Gluconate Complex 125 mg/ Sodium Chloride 110 mls @ 110 mls/hr IVPB Q24H [facility] Stop: 12/26/17 15:01 Last Admin: 12/18/17 19:33 Dose: 110 mls/hr Lorazepam (Ativan) 2 mg IVP Q4H PRN PRN Reason: Anxiety Losartan Potassium (Cozaar) 50 mg PO DAILY [facility] Last Admin: 12/18/17 09:29 Dose: 50 mg Multivitamins/Minerals (Therapeutic-M Tab) 1 tab PO DAILY [facility] Last Admin: 12/18/17 09:29 Dose: 1 tab Pantoprazole Sodium (Protonix Ec Tab) 40 mg PO DAILY [facility] Last Admin: 12/18/17 09:29 Dose: 40 mg Tamsulosin HCl (Flomax) 0.4 mg PO HS [facility] Last Admin: 12/18/17 21:24 Dose: 0.4 mg Thiamine HCl (Vitamin B1 Tab) 100 mg PO DAILY [facility] Last Admin: 12/18/17 09:30 Dose: 100 mg Topiramate (Topamax) 50 mg PO BID [facility] Last Admin: 12/18/17 17:29 Dose: 50 mg Trazodone HCl (Desyrel) 100 mg PO HS [facility] Last Admin: 12/18/17 21:24 Dose: 100 mg - Labs Labs: 12/18/17 06:23 12/18/17 06:23 - Constitutional Appears: No Acute Distress, Agitated - Head Exam Head Exam: ATRAUMATIC, NORMAL INSPECTION, NORMOCEPHALIC - Eye Exam Eye Exam: EOMI, Normal appearance, PERRL Pupil Exam: NORMAL ACCOMODATION, PERRL - Respiratory Exam Respiratory Exam: Clear to Ausculation Bilateral, NORMAL BREATHING PATTERN - Cardiovascular Exam Cardiovascular Exam: REGULAR RHYTHM, +S1, +S2. absent: Murmur - Neurological Exam Neurological Exam: Abnormal Gait, Alert, Awake - Psychiatric Exam Psychiatric exam: Anxious Assessment and Plan (1) Alcohol abuse with alcohol-induced disorder Status: Acute (2) Diarrhea Status: Acute (3) Drug abuse Status: Acute (4) Seizure disorder Status: Acute (5) COPD (chronic obstructive pulmonary disease) Status: Chronic
--- NOTE | 2017-12-19 04:23 | CON ---
DATE: HISTORY OF PRESENT ILLNESS: The patient is a 62-year-old male, who has history of coronary artery disease, status post coronary artery bypass graft surgery three years ago at [facility]; history of seizure disorder; chronic obstructive lung disease; EtOH abuse; as well as history of depression, who was initially admitted because of tremulousness and alcohol withdrawal. The patient denies any recent fall or syncope. He denies any chest pain or shortness of breath at this time. SOCIAL HISTORY: The patient is a smoker, EtOH abuser. MEDICATIONS: Ativan 2 mg intravenous q.4 hours p.r.n., Cozaar 50 mg once a day, Desyrel 100 mg at bedtime, aspirin 81 mg once a day, Ferrlecit infusion, Flomax 0.4 mg once a day, folic acid 5 mg, multivitamin intravenous infusion, Librium 50 mg p.o. q.4 hours p.r.n., Lexapro 10 mg daily, [place] 50 mg q.6 hours, Lovenox 100 mg subcutaneous once a day, gabapentin 100 mg b.i.d., multivitamin one tablet daily, Topamax 50 mg twice a day, and thiamin 100 mg orally once a day. PHYSICAL EXAMINATION: GENERAL: The patient is a middle-aged male, who does not appear to be in any acute distress. VITAL SIGNS: Blood pressure 102/62, heart rate 63, temperature 98, and respirations 20. HEENT: Normocephalic. CHEST: Bilateral rhonchi. HEART: S1 and S2 regular. ABDOMEN: Soft. EXTREMITIES: No edema. EKG reveals sinus rhythm, heart rate is 74, left atrial enlargement, nonspecific ST-T wave changes. LABORATORY DATA: Urine drug screen is positive for benzodiazepines, but the patient is on benzodiazepines at home. Alcohol level is below 10. Today's SMA-7 is entirely within normal limits. Hemoglobin and hematocrit are 10.5 and 33.6, white count and platelet counts are within normal limits. ASSESSMENT: 1. Coronary artery disease, status post coronary artery bypass surgery, the most recent echocardiography study performed in 10/2017, revealed ejection fraction in the range of 55% to 60% with mild sclerotic aortic valve. 2. Chronic obstructive lung disease. 3. Ethanol abuse. 4. Mild anemia. CONDITIONS: Continue current IV p.r.n. Ativan, continue Cozaar, aspirin, Flomax, Lexapro, Librium, subcutaneous Lovenox, Neurontin, Topamax, and oral thiamine. Maxwell Moreno MD
[2017-12-19 07:57] VITALS: BP 148/77; PULSE 72; TEMP 97.5
[2017-12-19] MEDS: Pantoprazole 40 mg EC Tab PO SCH (10:33)
[2017-12-19] MEDS: Enoxaparin 40 mg Syringe SC SCH (10:33)
[2017-12-19] MEDS: Multivitamin With Minerals Tab PO SCH (10:33)
--- NOTE | 2017-12-19 11:56 | CP.PCM.PN ---
Subjective - Date & Time of Evaluation Date of Evaluation: 12/19/17 Time of Evaluation: 11:55 - Subjective Subjective: PER PRIMARY RN DILIP PT IS REQUESTING D/C HOME TODAY OR HE WILL SIGN AMA. DISCUSSED WITH DR. VASQUES AND OK TO D/C HOME NOW. NO NEW RX. PT TO F/U WITH DR. VASQUES IN THE OFFICE THIS WEEK [facility]. OUTPATIENT MENTAL HEALTH OFFICE INFORMATION PROVIDED TO PT FOR ETOH REHAB. NO FURTHER ORDERS. Objective - Vital Signs/Intake and Output Vital Signs (last 24 hours): Temp Pulse Resp BP Pulse Ox 97.5 F L 72 20 148/77 97 12/19/17 07:56 12/19/17 07:56 12/19/17 07:56 12/19/17 07:56 12/19/17 07:56 Intake and Output: 12/19/17 12/19/17 06:59 18:59 Intake Total 1080 350 Balance 1080 350 - Medications Medications: Current Medications Aspirin (Ecotrin) 81 mg PO DAILY [facility] Last Admin: 12/19/17 10:33 Dose: 81 mg Chlordiazepoxide (Librium) 50 mg PO Q4H PRN PRN Reason: alcohol withdrawal Last Admin: 12/17/17 03:03 Dose: 50 mg Chlordiazepoxide (Librium) 50 mg PO Q6H [facility] Last Admin: 12/19/17 05:15 Dose: 50 mg Enoxaparin Sodium (Lovenox) 40 mg SC DAILY [facility] Last Admin: 12/19/17 10:33 Dose: 40 mg Escitalopram Oxalate (Lexapro) 10 mg PO DAILY [facility] Last Admin: 12/19/17 10:33 Dose: 10 mg Folic Acid (Folic Acid) 1 mg PO DAILY [facility] Last Admin: 12/19/17 10:33 Dose: 1 mg Gabapentin (Neurontin) 100 mg PO TID [facility] Last Admin: 12/19/17 10:33 Dose: 100 mg Folic Acid 1 mg/ Thiamine HCl 100 mg/ Multivitamins/Vitamin C 10 ml/ Dextrose 1 ,011.2 mls @ 80 mls/hr IV DAILY [facility] Last Admin: 12/18/17 09:30 Dose: 80 mls/hr Ferric Sodium Gluconate Complex 125 mg/ Sodium Chloride 110 mls @ 110 mls/hr IVPB Q24H [facility] Stop: 02/10/18 15:01 Last Admin: 12/18/17 19:33 Dose: 110 mls/hr Lorazepam (Ativan) 2 mg IVP Q4H PRN PRN Reason: Anxiety Losartan Potassium (Cozaar) 50 mg PO DAILY [facility] Last Admin: 12/19/17 10:33 Dose: 50 mg Multivitamins/Minerals (Therapeutic-M Tab) 1 tab PO DAILY [facility] Last Admin: 12/19/17 10:33 Dose: 1 tab Pantoprazole Sodium (Protonix Ec Tab) 40 mg PO DAILY [facility] Last Admin: 12/19/17 10:33 Dose: 40 mg Tamsulosin HCl (Flomax) 0.4 mg PO HS [facility] Last Admin: 12/18/17 21:24 Dose: 0.4 mg Thiamine HCl (Vitamin B1 Tab) 100 mg PO DAILY [facility] Last Admin: 12/19/17 10:35 Dose: 100 mg Topiramate (Topamax) 50 mg PO BID [facility] Last Admin: 12/19/17 10:33 Dose: 50 mg Trazodone HCl (Desyrel) 100 mg PO HS [facility] Last Admin: 12/18/17 21:24 Dose: 100 mg - Labs Labs: 12/18/17 06:23 12/18/17 06:23
--- NOTE | 2017-12-20 00:18 | CP.PCM.DIS ---
Provider - Provider Date of Admission: 12/18/17 14:57 Attending physician: Dennys Vasquez MD Time Spent in preparation of Discharge (in minutes): 41 Diagnosis - Discharge Diagnosis (1) Alcohol abuse with alcohol-induced disorder Status: Acute (2) Diarrhea Status: Acute (3) Drug abuse Status: Acute (4) Seizure disorder Status: Acute (5) COPD (chronic obstructive pulmonary disease) Status: Chronic Hospital Course - Lab Results Lab Results: Most Recent Lab Values WBC 5.8 K/uL (4.8-10.8) 12/18/17 06:23 RBC 4.34 Mil/uL (4.40-5.90) L 12/18/17 06:23 Hgb 10.5 g/dL (12.0-18.0) L 12/18/17 06:23 Hct 33.6 % (35.0-51.0) L 12/18/17 06:23 MCV 77.5 fL (80.0-94.0) L 12/18/17 06:23 MCH 24.3 pg (27.0-31.0) L 12/18/17 06:23 MCHC 31.3 g/dL (33.0-37.0) L 12/18/17 06:23 RDW 16.8 % (11.5-14.5) H 12/18/17 06:23 Plt Count 182 K/uL (130-400) 12/18/17 06:23 MPV 8.6 fL (7.2-11.7) 12/18/17 06:23 Neut % (Auto) 74.9 % (50.0-75.0) 12/16/17 13:15 Lymph % (Auto) 15.8 % (20.0-40.0) L 12/16/17 13:15 [place] % (Auto) 7.9 % (0.0-10.0) 12/16/17 13:15 Eos % (Auto) 0.8 % (0.0-4.0) 12/16/17 13:15 Baso % (Auto) 0.6 % (0.0-2.0) 12/16/17 13:15 Neut # (Auto) 6.6 K/uL (1.8-7.0) 12/16/17 13:15 Lymph # (Auto) 1.4 K/uL (1.0-4.3) 12/16/17 13:15 [place] # (Auto) 0.7 K/uL (0.0-0.8) 12/16/17 13:15 Eos # (Auto) 0.1 K/uL (0.0-0.7) 12/16/17 13:15 Baso # (Auto) 0.1 K/uL (0.0-0.2) 12/16/17 13:15 Sodium 138 mmol/L (132-148) 12/18/17 06:23 Potassium 3.6 mmol/L (3.6-5.2) 12/18/17 06:23 Chloride 104 mmol/L (98-107) 12/18/17 06:23 Carbon Dioxide 26 mmol/L (22-30) 12/18/17 06:23 Anion Gap 12 (10-20) 12/18/17 06:23 BUN 10 mg/dL (9-20) 12/18/17 06:23 Creatinine 0.9 mg/dL (0.8-1.5) 12/18/17 06:23 Est GFR ( Amer) > 60 12/18/17 06:23 Est GFR (Non-Af Amer) > 60 12/18/17 06:23 Random Glucose 100 mg/dL (75-110) 12/18/17 06:23 Calcium 8.7 mg/dl (8.6-10.4) 12/18/17 06:23 Total Bilirubin 0.4 mg/dL (0.2-1.3) 12/18/17 06:23 AST 22 U/L (17-59) 12/18/17 06:23 ALT 21 U/L (21-72) 12/18/17 06:23 Alkaline Phosphatase 55 U/L (38-126) 12/18/17 06:23 Total Creatine Kinase 106 U/L (55-170) 12/16/17 13:15 CK-MB (Mass) 4.26 ng/mL (0.0-3.38) H 12/16/17 13:15 Troponin I 0.0200 ng/mL (0.00-0.120) 12/16/17 13:15 Total Protein 6.8 g/dL (6.3-8.3) 12/18/17 06:23 Albumin 3.3 g/dL (3.5-5.0) L 12/18/17 06:23 Globulin 3.5 gm/dL (2.2-3.9) 12/18/17 06:23 Albumin/Globulin Ratio 1.0 (1.0-2.1) 12/18/17 06:23 Urine Color Yellow (YELLOW) 12/16/17 15:48 Urine Clarity Clear (Clear) 12/16/17 15:48 Urine pH 1.025 (5.0-8.0) 12/16/17 15:48 Ur Specific [place] 1.025 (1.003-1.030) 12/16/17 15:48 Urine Protein Negative mg/dL (NEGATIVE) 12/16/17 15:48 Urine Glucose (UA) Negative mg/dL (Normal) 12/16/17 15:48 Urine Ketones Negative mg/dL (NEGATIVE) 12/16/17 15:48 Urine Blood Negative (NEGATIVE) 12/16/17 15:48 Urine Nitrate Negative (NEGATIVE) 12/16/17 15:48 Urine Bilirubin Negative (NEGATIVE) 12/16/17 15:48 Urine Urobilinogen 0.2 mg/dL (0.2-1.0) 12/16/17 15:48 Ur Leukocyte Esterase Negative Ellie/uL (Negative) 12/16/17 15:48 Urine WBC (Auto) < 1 /hpf (0-5) 12/16/17 15:48 Urine RBC (Auto) 1 /hpf (0-3) 12/16/17 15:48 Urine Opiates Screen Negative (NEGATIVE) 12/16/17 15:48 Urine Methadone Screen Negative (NEGATIVE) 12/16/17 15:48 Ur Barbiturates Screen Negative (NEGATIVE) 12/16/17 15:48 Ur Phencyclidine Scrn Negative (NEGATIVE) 12/16/17 15:48 Ur Amphetamines Screen Negative (NEGATIVE) 12/16/17 15:48 U Benzodiazepines Scrn Positive (NEGATIVE) 12/16/17 15:48 U Oth Cocaine Metabols Negative (NEGATIVE) 12/16/17 15:48 U Cannabinoids Screen Negative (NEGATIVE) 12/16/17 15:48 Alcohol, Quantitative < 10 mg/dl (0-10) 12/16/17 13:15 - Hospital Course Hospital Course: \ PT IS REQUESTING D/C HOME TODAY OR HE WILL SIGN AMA. PT IS FEELING BETTER, DTS HAS BEEN RESOLVED SO STABLE TO D/C HOME NOW. NO NEW RX. PT ADVISED TO F/U WITH ME IN THE OFFICE THIS WEEK [facility]. OUTPATIENT MENTAL HEALTH OFFICE INFORMATION PROVIDED TO PT FOR ETOH REHAB. NO FURTHER ORDERS. Discharge Exam - Head Exam Head Exam: ATRAUMATIC, NORMAL INSPECTION, NORMOCEPHALIC - Eye Exam Eye Exam: EOMI, Normal appearance, PERRL Pupil Exam: NORMAL ACCOMODATION, PERRL - ENT Exam ENT Exam: Mucous Membranes Moist - Cardiovascular Exam Cardiovascular Exam: REGULAR RHYTHM, +S2 - GI/Abdominal Exam GI & Abdominal Exam: Normal Bowel Sounds - Rectal Exam Rectal Exam: Deferred Discharge Plan - Follow Up Plan Condition: GOOD Disposition: HOME/ ROUTINE Instructions: Alcohol Intoxication (DC), Abuse of Alcohol (DC), Alcohol Withdrawal (DC) Additional Instructions: -FOLLOW UP WITH DR. VASQUEZ IN THE OFFICE WITHIN 5-7 DAYS---CALL FOR APPT TIME. -FOLLOW UP WITH YOUR [employer] [employer] ATTENDANT OR DR. MORENO IN THE OFFICE WITHIN 7-10 DAYS---CALL FOR APPT TIME. -CONTINUE MEDICATIONS AT HOME USUAL. -PLEASE TRY TO DECREASE YOUR ALCOHOL INTAKE; OUTPATIENT REHAB RECOMMENDED, YOU MAY CONTACT THE OUTPATIENT MENTAL HEALTH AND SUBSTANCE ABUSE OFFICE AT [address] [place] [address]; THEIR PHONE NUMBER IS [phone]. -FOR FURTHER CONCERNS OR QUESTIONS, CONTACT DR. VASQUEZ'S OFFICE. Referrals: Scott Howell MD [Staff Provider] - Maxwell Moreno MD [Staff Provider] - Dennys Vasquez MD [Staff Provider] -
[2017-12-29 12:24] VITALS: O2SAT 100
== END 2017-12-19 14:18 | disposition home or self-care (01) ==
LOC: C.ER 11:46 → C.9E 14:28 → C.6T 12-17 12:36 → OBSVTOIN 12-18 14:57 → INTOOBSV 12-18 14:57
PROVIDERS: ADMIT Internal Medicine; ATTEND Internal Medicine
PROC: HZ2ZZZZ Detoxification Services for Substance Abuse Treatment (ICD-10-PCS; principal; 2017-12-18)
DX: F10.231 Alcohol dependence with withdrawal delirium (principal); E11.22 Type 2 diabetes mellitus with diabetic chronic kidney disease; F33.9 Major depressive disorder, recurrent, unspecified; F17.200 Nicotine dependence, unspecified, uncomplicated; D64.9 Anemia, unspecified; E78.00 Pure hypercholesterolemia, unspecified; G40.909 Epilepsy, unspecified, not intractable, without status epilepticus; G47.30 Sleep apnea, unspecified; I12.9 Hypertensive chronic kidney disease with stage 1 through stage 4 chronic kidney disease, or unspecified chronic kidney disease; I25.10 Atherosclerotic heart disease of native coronary artery without angina pectoris; J43.9 Emphysema, unspecified; K21.9 Gastro-esophageal reflux disease without esophagitis; N18.9 Chronic kidney disease, unspecified; Y90.8 Blood alcohol level of 240 mg/100 ml or more; Z87.01 Personal history of pneumonia (recurrent); Z95.1 Presence of aortocoronary bypass graft; Z95.5 Presence of coronary angioplasty implant and graft; R19.7 Diarrhea, unspecified
CPT/HCPCS: 36415; 80053; 81001; 82550; 82553; 84484; 85025; 85027; 93005; 96361; 96365; 96366; 96372; 96375; 96376; 97116; 97161; 99285; G0378; G0480; G8978; G8979; J1650; J2060; J2916; J3411; J7040; J7070

== ENCOUNTER 2018-01-08 21:38 | Emergency (ER) | payer MEDICARE, MEDICAID ==
[2018-01-08 21:38] VITALS: BMI 29.2
--- NOTE | 2018-01-08 23:16 | C.PDOC ---
History Of Present Illness Patient is a 62 y/o male who presents to the ED with a complaint of acute EtOH intoxication. Patient admits to drinking alcohol tonight. Denies any physical complaints at this time. Time Seen by Provider: 01/08/18 23:15 Chief Complaint (Nursing): Substance Abuse History Per: Patient History/Exam Limitations: no limitations Onset/Duration Of Symptoms: Hrs Current Symptoms Are (Timing): Still Present Modifying Factor(s): Alcohol Recent travel outside of the [place]: No Past Medical History Reviewed: Historical Data, Nursing Documentation, Vital Signs Vital Signs: Last Vital Signs Temp 97.3 F L 01/09/18 05:00 Pulse 60 01/09/18 05:00 Resp 18 01/09/18 05:00 BP 90/60 L 01/09/18 05:00 Pulse Ox 98 01/09/18 05:00 - Medical History PMH: Anemia (iron deficiency), Anxiety, Arthritis, Asthma, Benign Prostatic Hyperplasia, Bipolar Disorder, Bronchitis, CAD, Cardia Arrhythmia, COPD, Depression, Diabetes, Diverticulitis, Emphysema, Gastritis, Hepatitis (PATIENT STATED HE HAS HEPATITIS BUT COULD NOT RECALL WHICH ONE), HTN, Hypercholesterolemia, Hyperlipidemia, Migraine, Pancreatitis, Pneumonia, Chronic Kidney Disease (States recent diagnosis), Seizures (ETOH related), Sexually Transmitted Disease, Sleep Apnea Surgical History: CABG ((quadruple bypass) 2010), Coronary Stent - [facility] ALCOHOL DETOXIFICATION (03/12/15) CORONAR ARTERIOGR-2 CATH (07/24/15) CORONARY ARTERY STENT INSERTION [id number] (07/24/15) DETOXIFICATION SERVICES FOR SUBSTANCE ABUSE TREATMENT (12/18/17) ESOPHAGOGASTRODUODENOSCOPY [EGD] W/CLOSED BIOPSY (05/21/13) EXCISION OF DESCENDING COLON, ENDO, DIAGN (06/01/17) EXCISION OF STOMACH, ENDO, DIAGN (06/01/17) GROUP PSYCHOTHERAPY (11/29/17) INDIV PSYCHOTHERAPY FOR SUBSTANCE ABUSE TREATMENT, SUPPORT (11/09/17) INDIV PSYCHOTHERAPY FOR SUBSTANCE ABUSE, COGNITIV BEHAVIORAL (11/09/17) INDIV PSYCHOTHERAPY FOR SUBSTANCE ABUSE, MOTIVATION ENHANCE (11/29/17) INDIV PSYCHOTHERAPY FOR SUBSTANCE ABUSE, PSYCHOEDUCATION (11/29/17) INDIVID PSYCHOTHERAP NEC (11/04/14) INDIVIDUAL PSYCHOTHERAPY, BEHAVIORAL (01/17/16) INDIVIDUAL PSYCHOTHERAPY, COGNITIVE-BEHAVIORAL (11/19/16) INDIVIDUAL PSYCHOTHERAPY, SUPPORTIVE (10/02/16) INSERTION OF ONE VASCULAR STENT (07/24/15) IRRIGATION OF EAR (05/23/15) LEFT HEART CARDIAC CATH (07/19/15) LT HEART ANGIOCARDIOGRAM (07/19/15) OTHER GROUP THERAPY (11/04/14) PACKED CELL TRANSFUSION (05/21/13) PERCUTANEOUS TRANSLUMINAL CORONARY ANGIOPLASTY [PTCA] (07/24/15) PROCEDURE ON SINGLE VESSEL (07/24/15) PSYCHIAT DRUG THERAP NEC (11/04/14) RT HEART ANGIOCARDIOGRAM (07/22/15) RT HEART CARDIAC CATH (07/22/15) VACCINATION NEC (09/28/14) Family History: States: No Known Family Hx - Social History Hx Tobacco Use: Yes Hx Alcohol Use: Yes ("binge drinker") Hx Substance Use: No - Immunization History Hx Tetanus Toxoid Vaccination: Yes Hx Influenza Vaccination: Yes Hx Pneumococcal Vaccination: Yes Review Of Systems Constitutional: Negative for: Fever, Chills Neurological: Positive for: Other (EtOH intoxication) Physical Exam - Physical Exam Appears: No Acute Distress, Other (EtOH on breath) Skin: Warm, Dry Head: Normacephalic Oral Mucosa: Moist Chest: Symmetrical Cardiovascular: Rhythm Regular, No Murmur Respiratory: No Rales, No Rhonchi, No Wheezing Gastrointestinal/Abdominal: Soft, No Tenderness ED Course And Treatment O2 Sat by Pulse Oximetry: 96 Pulse Ox Interpretation: Normal Progress Note: Patient to be discharged upon reaching sobriety in the AM. Reevaluation Time: 05:32 Reassessment Condition: Improved Disposition Counseled Patient/Family Regarding: Studies Performed, Diagnosis, Need For Followup - Disposition Referrals: Dennys Vasquez MD [Staff Provider] - Disposition: HOME/ ROUTINE Disposition Time: 23:16 Condition: FAIR Instructions: Alcohol Abuse and Alcoholism (DC) Forms: [facility] (Lebanese) - Clinical Impression Clinical Impression: Alcohol intoxication - Scribe Statement The provider has reviewed the documentation as recorded by the Scribe Adenike Lazo All medical record entries made by the Scribe were at my direction and personally dictated by me. I have reviewed the chart and agree that the record accurately reflects my personal performance of the history, physical exam, medical decision making, and the department course for this patient. I have also personally directed, reviewed, and agree with the discharge instructions and disposition.
[2018-01-09 05:14] VITALS: RESP 18
[2018-01-09 07:05] VITALS: BP 101/57; PULSE 67; TEMP 98.8; O2SAT 98
== END 2018-01-09 06:59 | disposition home or self-care (01) ==
LOC: C.ER 21:38
DX: F10.129 Alcohol abuse with intoxication, unspecified (principal); Y90.9 Presence of alcohol in blood, level not specified

== ENCOUNTER 2018-01-19 17:01 | Emergency (ER) | payer MEDICARE, MEDICAID ==
[2018-01-19 17:01] VITALS: BMI 29.2
[2018-01-19 17:22] VITALS: BP 131/81; PULSE 67; RESP 18; TEMP 98; O2SAT 100
--- NOTE | 2018-01-20 20:15 | C.PDOC ---
History Of Present Illness pt sts he was sent to ED for detox and that there is a note in his chart. I left bedside to find note, and when I returned to bedside, pt no longer there, was told by [employer] security consultant that pt walked out. pt was not examined. Time Seen by Provider: 01/19/18 17:34 Chief Complaint (Nursing): Substance Abuse Past Medical History Vital Signs: Last Vital Signs Temp 98 F 01/19/18 17:20 Pulse 67 01/19/18 17:20 Resp 18 01/19/18 17:20 BP 131/81 01/19/18 17:20 Pulse Ox 100 01/20/18 22:41 - Medical History PMH: Anemia (iron deficiency), Anxiety, Arthritis, Asthma, Benign Prostatic Hyperplasia, Bipolar Disorder, Bronchitis, CAD, Cardia Arrhythmia, COPD, Depression, Diabetes, Diverticulitis, Emphysema, Gastritis, Hepatitis (PATIENT STATED HE HAS HEPATITIS BUT COULD NOT RECALL WHICH ONE), HTN, Hypercholesterolemia, Hyperlipidemia, Migraine, Pancreatitis, Pneumonia, Chronic Kidney Disease (States recent diagnosis), Seizures (ETOH related), Sexually Transmitted Disease, Sleep Apnea Surgical History: CABG ((quadruple bypass) 2010), Coronary Stent - [facility] Procedures ALCOHOL DETOXIFICATION (03/12/15) CORONAR ARTERIOGR-2 CATH (07/24/15) CORONARY ARTERY STENT INSERTION [id number] (07/24/15) DETOXIFICATION SERVICES FOR SUBSTANCE ABUSE TREATMENT (12/18/17) ESOPHAGOGASTRODUODENOSCOPY [EGD] W/CLOSED BIOPSY (05/21/13) EXCISION OF DESCENDING COLON, ENDO, DIAGN (06/01/17) EXCISION OF STOMACH, ENDO, DIAGN (06/01/17) GROUP PSYCHOTHERAPY (11/29/17) INDIV PSYCHOTHERAPY FOR SUBSTANCE ABUSE TREATMENT, SUPPORT (11/09/17) INDIV PSYCHOTHERAPY FOR SUBSTANCE ABUSE, COGNITIV BEHAVIORAL (11/09/17) INDIV PSYCHOTHERAPY FOR SUBSTANCE ABUSE, MOTIVATION ENHANCE (11/29/17) INDIV PSYCHOTHERAPY FOR SUBSTANCE ABUSE, PSYCHOEDUCATION (11/29/17) INDIVID PSYCHOTHERAP NEC (11/04/14) INDIVIDUAL PSYCHOTHERAPY, BEHAVIORAL (01/17/16) INDIVIDUAL PSYCHOTHERAPY, COGNITIVE-BEHAVIORAL (11/19/16) INDIVIDUAL PSYCHOTHERAPY, SUPPORTIVE (10/02/16) INSERTION OF ONE VASCULAR STENT (07/24/15) IRRIGATION OF EAR (05/23/15) LEFT HEART CARDIAC CATH (07/19/15) LT HEART ANGIOCARDIOGRAM (07/19/15) OTHER GROUP THERAPY (11/04/14) PACKED CELL TRANSFUSION (05/21/13) PERCUTANEOUS TRANSLUMINAL CORONARY ANGIOPLASTY [PTCA] (07/24/15) PROCEDURE ON SINGLE VESSEL (07/24/15) PSYCHIAT DRUG THERAP NEC (11/04/14) RT HEART ANGIOCARDIOGRAM (07/22/15) RT HEART CARDIAC CATH (07/22/15) VACCINATION NEC (09/28/14) Family History: States: Unknown Family Hx - Social History Hx Tobacco Use: Yes Hx Alcohol Use: Yes ("binge drinker") Hx Substance Use: No - Immunization History Hx Tetanus Toxoid Vaccination: Yes Hx Influenza Vaccination: Yes Hx Pneumococcal Vaccination: Yes ED Course And Treatment O2 Sat by Pulse Oximetry: 100 Medical Decision Making Medical Decision Making: pt not examined, left with steady gate per security Disposition - Disposition Disposition: ELOPEMENT - ER ONLY Disposition Time: 18:15 Condition: STABLE Forms: [facility] (Turkmen) - Clinical Impression Clinical Impression: Alcohol dependence
== END 2018-01-19 18:15 | disposition left against medical advice (07) ==
LOC: C.ER 17:01
DX: F10.20 Alcohol dependence, uncomplicated (principal); E78.00 Pure hypercholesterolemia, unspecified; I25.10 Atherosclerotic heart disease of native coronary artery without angina pectoris; J44.9 Chronic obstructive pulmonary disease, unspecified; Z72.0 Tobacco use

== ENCOUNTER 2018-01-20 13:28 | Inpatient (IN) | payer MEDICARE, MEDICAID ==
[2018-01-20 13:29] VITALS: BMI 29.2
[2018-01-20] MEDS ORDERED: Albuterol-Ipratrop 3 mg / 0.5 (3 ml) UD IH STA (14:09)
[2018-01-20] MEDS ORDERED: Albuterol 0.083% Inhal Sol (2.5 mg/3 mL) UD IH STA (14:09)
[2018-01-20] MEDS ORDERED: Aspirin 325 mg EC Tablets PO STA (14:09)
--- NOTE | 2018-01-20 14:30 | RAD ---
PROCEDURE: CHEST RADIOGRAPH, 1 VIEW HISTORY: chest pain COMPARISON: Chest radiograph dated 12/10/2017 FINDINGS: LUNGS: Clear. PLEURA: No pneumothorax or pleural fluid seen. CARDIOVASCULAR: Prior sternotomy with sternal wires and surgical clips redemonstrated. Atherosclerotic aortic calcifications. Cardiomediastinal silhouette stably enlarged. OSSEOUS STRUCTURES: Unchanged. VISUALIZED UPPER ABDOMEN: Normal. OTHER FINDINGS: None. IMPRESSION: No active disease.
[2018-01-20 14:37] LABS: BASO # 0.1 K/uL (0.0-0.2); BASO % 1.2 % (0.0-2.0); EOS # 0.1 K/uL (0.0-0.7); EOS % 1.3 % (0.0-4.0); HEMOGLOBIN 10.3 g/dL (12.0-18.0); LYMPH # 1.5 K/uL (1.0-4.3); LYMPH % 25.4 % (20.0-40.0); MEAN CORPUSCULAR HEMOGLOBIN 23.2 pg (27.0-31.0); MEAN CORPUSCULAR HGB CONC 31.5 g/dL (33.0-37.0); MEAN PLATELET VOLUME 7.9 fL (7.2-11.7); MONO # 0.7 K/uL (0.0-0.8); MONO % 12.3 % (0.0-10.0); NEUT # 3.6 K/uL (1.8-7.0); NEUT % 59.8 % (50.0-75.0); NRBC % 0.1 % (0.0-2.0); RBC 4.43 Mil/uL (4.40-5.90); RED CELL DISTRIBUTION WIDTH 19.3 % (11.5-14.5); WHITE BLOOD COUNT 6.1 K/uL (4.8-10.8)
[2018-01-20 14:39] LABS: MEAN CELL VOLUME 73.8 fL (80.0-94.0)
[2018-01-20] MEDS ORDERED: Albuterol-Ipratrop 3 mg / 0.5 (3 ml) UD ONE (14:39)
[2018-01-20] MEDS ORDERED: Albuterol 0.083% Inhal Sol (2.5 mg/3 mL) UD ONE (14:40)
[2018-01-20] MEDS ORDERED: Aspirin 325 mg EC Tablets PO ONE (14:40)
--- NOTE | 2018-01-20 14:40 | C.PDOC ---
History Of Present Illness Sherif Lombardi is a 62 year old male, with a past medical history of ETOH abuse, CAD, COPD s/p CABG x4, who was brought to the emergency department via EMS complaining of chest pain and shortness of breath. Patient was sent to the ER yesterday by his PMD but walked out before he was seen. He denies any other medical complaints. He is obviously intoxicated but able to speak and give a full history. PMD: None provided. Time Seen by Provider: 01/20/18 14:02 Chief Complaint (Nursing): Substance Abuse History Per: Patient History/Exam Limitations: no limitations Onset/Duration Of Symptoms: Hrs (today) Past Medical History Reviewed: Historical Data, Nursing Documentation, Vital Signs Vital Signs: Last Vital Signs Temp 97.9 F 01/20/18 13:33 Pulse 71 01/20/18 14:55 Resp 22 01/20/18 14:55 BP 112/52 L 01/20/18 14:55 Pulse Ox 100 01/20/18 14:55 - Medical History PMH: Anemia (iron deficiency), Anxiety, Arthritis, Asthma, Benign Prostatic Hyperplasia, Bipolar Disorder, Bronchitis, CAD, Cardia Arrhythmia, COPD, Depression, Diabetes, Diverticulitis, Emphysema, Gastritis, Hepatitis (PATIENT STATED HE HAS HEPATITIS BUT COULD NOT RECALL WHICH ONE), HTN, Hypercholesterolemia, Hyperlipidemia, Migraine, Pancreatitis, Pneumonia, Chronic Kidney Disease (States recent diagnosis), Seizures (ETOH related), Sexually Transmitted Disease, Sleep Apnea Surgical History: CABG ((quadruple bypass) 2010), Coronary Stent - [facility] Procedures ALCOHOL DETOXIFICATION (03/12/15) CORONAR ARTERIOGR-2 CATH (07/24/15) CORONARY ARTERY STENT INSERTION [id number] (07/24/15) DETOXIFICATION SERVICES FOR SUBSTANCE ABUSE TREATMENT (12/18/17) ESOPHAGOGASTRODUODENOSCOPY [EGD] W/CLOSED BIOPSY (05/21/13) EXCISION OF DESCENDING COLON, ENDO, DIAGN (06/01/17) EXCISION OF STOMACH, ENDO, DIAGN (06/01/17) GROUP PSYCHOTHERAPY (11/29/17) INDIV PSYCHOTHERAPY FOR SUBSTANCE ABUSE TREATMENT, SUPPORT (11/09/17) INDIV PSYCHOTHERAPY FOR SUBSTANCE ABUSE, COGNITIV BEHAVIORAL (11/09/17) INDIV PSYCHOTHERAPY FOR SUBSTANCE ABUSE, MOTIVATION ENHANCE (11/29/17) INDIV PSYCHOTHERAPY FOR SUBSTANCE ABUSE, PSYCHOEDUCATION (11/29/17) INDIVID PSYCHOTHERAP NEC (11/04/14) INDIVIDUAL PSYCHOTHERAPY, BEHAVIORAL (01/17/16) INDIVIDUAL PSYCHOTHERAPY, COGNITIVE-BEHAVIORAL (11/19/16) INDIVIDUAL PSYCHOTHERAPY, SUPPORTIVE (10/02/16) INSERTION OF ONE VASCULAR STENT (07/24/15) IRRIGATION OF EAR (05/23/15) LEFT HEART CARDIAC CATH (07/19/15) LT HEART ANGIOCARDIOGRAM (07/19/15) OTHER GROUP THERAPY (11/04/14) PACKED CELL TRANSFUSION (05/21/13) PERCUTANEOUS TRANSLUMINAL CORONARY ANGIOPLASTY [PTCA] (07/24/15) PROCEDURE ON SINGLE VESSEL (07/24/15) PSYCHIAT DRUG THERAP NEC (11/04/14) RT HEART ANGIOCARDIOGRAM (07/22/15) RT HEART CARDIAC CATH (07/22/15) VACCINATION NEC (09/28/14) Family History: States: Unknown Family Hx - Social History Hx Tobacco Use: Yes Hx Alcohol Use: Yes ("binge drinker") Hx Substance Use: No - Immunization History Hx Tetanus Toxoid Vaccination: Yes Hx Influenza Vaccination: Yes Hx Pneumococcal Vaccination: Yes Review Of Systems Cardiovascular: Positive for: Chest Pain Respiratory: Positive for: Shortness of Breath Physical Exam - Physical Exam Appears: Other (intoxicated with slurred speech.) Skin: Normal Color, Warm, Dry Head: Atraumatic, Normacephalic Eye(s): bilateral: Normal Inspection, PERRL, EOMI Neck: Normal ROM Chest: Symmetrical Cardiovascular: Rhythm Regular, Murmur (audible over the apex.) Respiratory: Wheezing (diffused expiratory and inspiratory) Gastrointestinal/Abdominal: Normal Exam, Soft, No Tenderness Extremity: Normal ROM, No Deformity, No Swelling Neurological/Psych: Other (alert) ED Course And Treatment - Laboratory Results Result Diagrams: 01/20/18 14:32 01/20/18 14:32 Lab Interpretation: No Acute Changes (ETOH 313) ECG: Interpreted By Mo ECG Rhythm: Sinus Rhythm, Nonspecific Changes ECG Interpretation: No Acute Changes O2 Sat by Pulse Oximetry: 97 (RA) Pulse Ox Interpretation: Normal - Radiology CXR: Interpreted by Mo CXR Interpretation: Yes: No Acute Disease, Cardiomegaly Reevaluation Time: 15:48 Reassessment Condition: Improved (No further wheezing. Patient alert and responsive.) - Physician Consult Information Time Consulting Physician Contacted: 15:54 Physician Contacted: Dennys Vasquez Outcome Of Conversation: He knows the patient well. Will admit for exacerbation COPD, chest pain and ETOH abuse. Medical Decision Making Medical Decision Making: Initial Impression: Initial Plan: --EKG --Alcohol serum --CMP --Troponin I --Alubterol 2.5 mg IH --Combivent Respimat 3 ml IH --Ecotrin 325 mg PO --Nitrostat SL tab 0.4 mg SL --Nebulizer treatment --Peak flow pre/post Tx --Reevaluation Disposition - Disposition Disposition: HOSPITALIZED Disposition Time: 15:57 Condition: STABLE - POA Present On Arrival: None - Clinical Impression Clinical Impression: CAD (coronary artery disease), Alcohol abuse with intoxication, Chest pain, COPD exacerbation - Scribe Statement Rene Olivares
[2018-01-20 14:50] LABS: ALBUMIN 3.9 g/dL (3.5-5.0); ALT/SGPT 36 U/L (21-72); AST/SGOT 40 U/L (17-59); BLOOD UREA NITROGEN 7 mg/dL (9-20); CALCIUM 8.2 mg/dl (8.6-10.4); GFR AFRICAN-AMERICAN > 60; GFR NON-AFRICAN AMERICAN > 60
[2018-01-20] MEDS ORDERED: Potassium Chloride 20 mEq/15 ml LIQ UD PO STA (17:38)
[2018-01-20] MEDS ORDERED: Folic Acid 1 MG, Thiamine 100 MG, Multivitamin (MVI) 10 ML in Dextrose 5% In Water 1,00... IV SCH (17:45)
--- NOTE | 2018-01-20 22:51 | CP.PCM.HP ---
History of Present Illness - History of Present Illness History of Present Illness: Chief Complaint : ALCOHOL intoxication Substance Abuse History Of Present Illness Sherif Lombardi is a 62 year old white male, with a past medical history of ETOH abuse, CAD, COPD s/p CABG x4, who was brought to the emergency department via EMS complaining of chest pain and shortness of breath. Patient was sent to the ER yesterday by his PMD but walked out before he was seen. He denies any other medical complaints. He is obviously intoxicated but able to speak and give a full history.his alcohol elevl is high, c/o chest pain left precrdial, pt is shaking Present on Admission - Present on Admission Any Indicators Present on Admission: Yes Review of Systems - Review of Systems Systems not reviewed;Unavailable: Intoxicated - Constitutional Constitutional: Fatigue, Lethargy Past Patient History - Infectious Disease Hx of Infectious Diseases: None - Past Medical History & Family History Past Medical History?: Yes - Past Social History Smoking Status: Heavy Smoker > 10 Cigarettes Daily - CARDIAC Hx Cardia Arrhythmia: Yes Hx Hypercholesterolemia: Yes Hx Hypertension: Yes - PULMONARY Hx Asthma: Yes Hx Bronchitis: Yes Hx Chronic Obstructive Pulmonary Disease (COPD): Yes Hx Emphysema: Yes Hx Pneumonia: Yes Hx Sleep Apnea: Yes - NEUROLOGICAL Hx Migraine: Yes Hx Seizures: Yes (ETOH related) - HEENT Hx HEENT Problems: No - RENAL Hx Chronic Kidney Disease: Yes (States recent diagnosis) - ENDOCRINE/METABOLIC Hx Diabetes Mellitus Type 2: Yes - HEMATOLOGICAL/ONCOLOGICAL Hx Anemia: Yes (iron deficiency) - INTEGUMENTARY Hx Dermatological Problems: No - MUSCULOSKELETAL/RHEUMATOLOGICAL Hx Arthritis: Yes - GASTROINTESTINAL Hx Diverticulitis: Yes Hx Gastritis: Yes Hx Pancreatitis: Yes - GENITOURINARY/GYNECOLOGICAL Hx Sexually Transmitted Disorders: Yes - PSYCHIATRIC Hx Anxiety: Yes Hx Bipolar Disorder: Yes Hx Depression: Yes Hx Substance Use: No - SURGICAL HISTORY Hx Coronary Artery Bypass Graft: Yes ((quadruple bypass) 2010) Hx Coronary Stent: Yes - ANESTHESIA Hx Anesthesia: Yes Hx Anesthesia Reactions: No Hx Malignant Hyperthermia: No Meds Allergies/Adverse Reactions: Allergies Allergy/AdvReac Type Severity Reaction Status Date / Time No Known Allergies Allergy Verified 01/20/18 13:39 Physical Exam - Constitutional Appears: Toxic - Head Exam Head Exam: ATRAUMATIC, NORMAL INSPECTION, NORMOCEPHALIC - Eye Exam Eye Exam: EOMI, Normal appearance, PERRL Pupil Exam: NORMAL ACCOMODATION, PERRL - Cardiovascular Exam Cardiovascular Exam: REGULAR RHYTHM - GI/Abdominal Exam GI & Abdominal Exam: Normal Bowel Sounds, Soft. absent: Tenderness Results - Vital Signs Recent Vital Signs: Last Vital Signs Temp 97.7 F 01/20/18 17:15 Pulse 75 01/20/18 17:15 Resp 20 01/20/18 17:15 BP 150/75 01/20/18 17:15 Pulse Ox 100 01/20/18 17:15 - Labs Result Diagrams: 01/21/18 06:47 01/22/18 06:21 Labs: Laboratory Results - last 24 hr 01/20/18 01/20/18 14:32 14:32 WBC 6.1 RBC 4.43 Hgb 10.3 L Hct 32.7 L MCV 73.8 L D MCH 23.2 L MCHC 31.5 L RDW 19.3 H Plt Count 203 MPV 7.9 Neut % (Auto) 59.8 Lymph % (Auto) 25.4 [place] % (Auto) 12.3 H Eos % (Auto) 1.3 Baso % (Auto) 1.2 Neut # (Auto) 3.6 Lymph # (Auto) 1.5 [place] # (Auto) 0.7 Eos # (Auto) 0.1 Baso # (Auto) 0.1 Sodium 147 Potassium 3.2 L Chloride 105 Carbon Dioxide 24 Anion Gap 21 H BUN 7 L Creatinine 0.8 Est GFR ( Amer) > 60 Est GFR (Non-Af Amer) > 60 Random Glucose 98 Calcium 8.2 L Total Bilirubin 0.5 AST 40 ALT 36 Alkaline Phosphatase 67 Troponin I 0.0230 Total Protein 7.9 Albumin 3.9 Globulin 4.1 H Albumin/Globulin Ratio 1.0 Alcohol, Quantitative 313 H Assessment & Plan (1) Chest pain Status: Acute Priority: High (2) Alcohol abuse with intoxication Status: Chronic Priority: Low (3) Alcohol intoxication Status: Acute (4) Alcohol withdrawal Status: Acute
[2018-01-21 07:00] LABS: HEMOGLOBIN 9.9 g/dL (12.0-18.0); MEAN CELL VOLUME 72.6 fL (80.0-94.0); MEAN CORPUSCULAR HEMOGLOBIN 22.7 pg (27.0-31.0); MEAN CORPUSCULAR HGB CONC 31.2 g/dL (33.0-37.0); MEAN PLATELET VOLUME 8.3 fL (7.2-11.7); RBC 4.36 Mil/uL (4.40-5.90); RED CELL DISTRIBUTION WIDTH 19.2 % (11.5-14.5); WHITE BLOOD COUNT 6.5 K/uL (4.8-10.8)
[2018-01-21 07:27] LABS: ALB/GLOB RATIO 0.9 (1.0-2.1); ALBUMIN 3.7 g/dL (3.5-5.0); ALT/SGPT 28 U/L (21-72); AST/SGOT 41 U/L (17-59); BLOOD UREA NITROGEN 7 mg/dL (9-20); CALCIUM 8.4 mg/dl (8.6-10.4); GFR AFRICAN-AMERICAN > 60; GFR NON-AFRICAN AMERICAN > 60
[2018-01-21] MEDS ORDERED: Potassium Chloride 20 mEq ER Tab PO ONE (10:39)
[2018-01-21] MEDS: Pantoprazole 40 mg EC Tab PO SCH (10:41)
[2018-01-21] MEDS: Multivitamin With Minerals Tab PO SCH (10:41)
[2018-01-21] MEDS: Enoxaparin 40 mg Syringe SC SCH (10:48)
--- NOTE | 2018-01-21 13:09 | PCM.PSYCH ---
Initial Psychiatric Evaluation - Initial Psychiatric Evaluation Type of Admission: Voluntary Legal Status: Capacity Chief Complaint (in patient's own words): I am withdrawing.' History of Present Illness and Precipitating Events: Patient is a 62-year-old male with a long history of drinking and bipolar disorder and medical history of CAD, COPD s/p CABG x4, who was brought to the emergency department via EMS complaining of chest pain and shortness of breath. Psychiatry was consult did due to possible alcohol withdrawal symptoms. Today patient was consulted. Patient reports shakes, tremors, anxiety and sweating. He reports anxiety due to chest pain, however he denies any depressed mood or any feelings of hopelessness or helplessness. He denies any suicidal ideation or homicidal ideation. He denies any auditory or visual hallucinations, or any paranoia. Current Medications: Active Medications Generic Name Dose Route Start Last Admin Trade Name Freq PRN Reason Stop Dose Admin Aspirin 81 mg 01/21/18 10:00 01/21/18 10:41 Ecotrin PO 81 mg DAILY EMILIE Administration Enoxaparin Sodium 40 mg 01/21/18 10:00 01/21/18 10:48 Lovenox SC 40 mg DAILY EMILIE Administration Escitalopram Oxalate 10 mg 01/21/18 10:00 01/21/18 10:41 Lexapro PO 10 mg DAILY EMILIE Administration Folic Acid 1 mg 01/21/18 10:00 01/21/18 10:40 Folic Acid PO 1 mg DAILY EMILIE Administration Gabapentin 100 mg 01/20/18 18:00 01/21/18 10:40 Neurontin PO 100 mg TID EMILIE Administration Losartan Potassium 50 mg 01/21/18 10:00 01/21/18 10:40 Cozaar PO 50 mg DAILY EMILIE Administration Multivitamins/Minerals 1 tab 01/21/18 10:00 01/21/18 10:41 Therapeutic-M Tab PO 1 tab DAILY EMILIE Administration Pantoprazole Sodium 40 mg 01/21/18 10:00 01/21/18 10:41 Protonix Ec Tab PO 40 mg DAILY EMILIE Administration Tamsulosin HCl 0.4 mg 01/20/18 22:00 01/20/18 22:01 Flomax PO 0.4 mg HS EMILIE Administration Thiamine HCl 100 mg 01/21/18 10:00 01/21/18 10:40 Vitamin B1 Tab PO 100 mg DAILY EMILIE Administration Topiramate 50 mg 01/20/18 18:00 01/21/18 10:40 Topamax PO 50 mg BID EMILIE Administration Past Psychiatric History - Past Psychiatric History Previous Treatment History: Inpatient Pertinent Medical Hx (Current Medical&Sleep Prob, Allergies): Allergies Allergy/AdvReac Type Severity Reaction Status Date / Time No Known Allergies Allergy Verified 01/20/18 13:39 Aspirin [Lo-Dose Aspirin EC] 81 mg PO DAILY 11/02/17 Topiramate [Topamax] 50 mg PO BID #60 tab 11/20/17 Pantoprazole Sodium [Protonix] 40 mg PO DAILY 11/29/17 Escitalopram [Lexapro] 10 mg PO DAILY #30 tab 12/03/17 Folic Acid 1 mg PO DAILY tab 12/03/17 Gabapentin [Neurontin] 100 mg PO TID #90 cap 12/03/17 Losartan [Cozaar] 50 mg PO DAILY #30 tab 12/03/17 Multimineral/Multivitamin [Therapeutic-M Tab] 1 tab PO DAILY tab 12/03/17 Tamsulosin HCl [Flomax] 0.4 mg PO HS #30 cap.er.24h 12/03/17 Thiamine [Vitamin B1 Tab] 100 mg PO DAILY tab 12/03/17 traZODone [Desyrel] 100 mg PO HS #30 tab 12/03/17 Review of Systems - Review of Systems All systems: reviewed and no additional remarkable complaints except - Psychiatric Psychiatric: Anxiety, Irritability. absent: Suicidal Ideation Mental Status Examination - Personal Presentation Personal Presentation: Looks stated age - Affect Affect: Constricted, Depressed - Motor Activity Motor Activity: Calm - Reliability in Providing Information Reliability in Providing Information: Fair - Speech Speech: Organized - Mood Mood: Depressed, Anxious - Formal Thought Process Formal Thought Process: No Impairment - Obsessions/Compulsions Obsessions: No Compulsions: No - Cognitive Functions Orientation: Person, Place, Situation, Time Sensorium: Alert Attention/Concentration: Attentive Abstract Thinking: [place] Estimate of Intelligence: Below average Judgement: Imparied, as evidence by: Poor judgement, Imparied, as evidence by: Lack of insight into illness - Risk Risk: Diminished functioning - Limitations Limitations: Living alone DSM 5 DX - DSM 5 DSM 5 Diagnosis: Alcohol use disorder severe Alcohol withdrawal Bipolar disorder depressed moderate - Recommended/Plan of Treatment Treatment Recommendations and Plan of Treatment: Alcohol use disorder severe CBT Psychoeducation Supportive therapy, individual therapy Use IN for abstinence Alcohol withdrawal CBT Psychoeducation Supportive therapy, individual therapy Librium taper when scoring Librium PRN Bipolar disorder depressed moderate CBT Psychoeducation Supportive therapy, group therapy, individual therapy Neurontin 100 mg by mouth 3 times a day Topiramate 50 mg PO BID - Smoking Cessation Smoking Cessation Initiated: No
[2018-01-21] MEDS: Albuterol-Ipratrop 3 mg / 0.5 (3 ml) UD INH SCH ×2 (14:28→20:39)
[2018-01-21] MEDS ORDERED: Potassium Chloride 20 mEq/15 ml LIQ UD PO STA (15:49)
[2018-01-21] MEDS: Metoprolol Succinate 25 mg XL Tab PO SCH (17:30)
[2018-01-21] MEDS: Ferric Sodium Gluconat Complex 62.5 mg/5 ml Vial IVPB SCH (17:31)
[2018-01-21 18:57] LABS: BARBITURATES, UR NEGATIVE (NEGATIVE); OPIATES, UR NEGATIVE (NEGATIVE); PHENCYCLIDINE, UR NEGATIVE (NEGATIVE)
[2018-01-21 19:01] LABS: BENZODIAZEPINES, UR POSITIVE (NEGATIVE)
--- NOTE | 2018-01-21 23:39 | CP.PCM.PN ---
Subjective - Date & Time of Evaluation Date of Evaluation: 01/21/18 Time of Evaluation: 18:00 - Subjective Subjective: PT SEEN AND EXAMINED, SHE IS DEPRESSED, ANXIOUS, NO SHORTNESS OF BREATH, NO FEVER Objective - Vital Signs/Intake and Output Vital Signs (last 24 hours): Temp Pulse Resp BP Pulse Ox 97.9 F 83 22 177/78 H 98 01/21/18 15:00 01/21/18 16:20 01/21/18 15:00 01/21/18 15:00 01/21/18 15:00 - Medications Medications: Current Medications Albuterol/Ipratropium (Duoneb 3 Mg/0.5 Mg (3 Ml) Ud) 3 ml INH RQ6 [facility] Last Admin: 01/21/18 20:39 Dose: 3 ml Aspirin (Ecotrin) 81 mg PO DAILY [facility] Last Admin: 01/21/18 10:41 Dose: 81 mg Chlordiazepoxide (Librium) 25 mg PO Q8 PRN PRN Reason: Anxiety Stop: 01/23/18 17:15 Last Admin: 01/21/18 17:30 Dose: 25 mg Chlordiazepoxide (Librium) 0 mg PO Q6 [facility] PRN Reason: Taper Stop: 01/25/18 23:59 Enoxaparin Sodium (Lovenox) 40 mg SC DAILY [facility] Last Admin: 01/21/18 10:48 Dose: 40 mg Escitalopram Oxalate (Lexapro) 10 mg PO DAILY [facility] Last Admin: 01/21/18 10:41 Dose: 10 mg Ferric Sodium Gluconate Complex (Ferrlecit) 125 mg IVPB DAILY [facility] Stop: 01/29/18 16:01 Last Admin: 01/21/18 17:31 Dose: 125 mg Folic Acid (Folic Acid) 1 mg PO DAILY [facility] Last Admin: 01/21/18 10:40 Dose: 1 mg Gabapentin (Neurontin) 100 mg PO TID [facility] Last Admin: 01/21/18 17:30 Dose: 100 mg Losartan Potassium (Cozaar) 50 mg PO DAILY [facility] Last Admin: 01/21/18 10:40 Dose: 50 mg Metoprolol Succinate (Toprol Xl) 25 mg PO DAILY [facility] Last Admin: 01/21/18 17:30 Dose: 25 mg Multivitamins/Minerals (Therapeutic-M Tab) 1 tab PO DAILY [facility] Last Admin: 01/21/18 10:41 Dose: 1 tab Pantoprazole Sodium (Protonix Ec Tab) 40 mg PO DAILY [facility] Last Admin: 01/21/18 10:41 Dose: 40 mg Tamsulosin HCl (Flomax) 0.4 mg PO HS [facility] Last Admin: 01/21/18 21:48 Dose: 0.4 mg Thiamine HCl (Vitamin B1 Tab) 100 mg PO DAILY [facility] Last Admin: 01/21/18 10:40 Dose: 100 mg Topiramate (Topamax) 50 mg PO BID [facility] Last Admin: 01/21/18 17:30 Dose: 50 mg - Labs Labs: 01/21/18 06:47 01/21/18 06:47 - Constitutional Appears: No Acute Distress - Head Exam Head Exam: ATRAUMATIC, NORMAL INSPECTION, NORMOCEPHALIC - Eye Exam Eye Exam: EOMI, Normal appearance, PERRL Pupil Exam: NORMAL ACCOMODATION, PERRL - Respiratory Exam Respiratory Exam: Clear to Ausculation Bilateral, NORMAL BREATHING PATTERN - Cardiovascular Exam Cardiovascular Exam: REGULAR RHYTHM, +S1, +S2. absent: Murmur - GI/Abdominal Exam GI & Abdominal Exam: Soft, Normal Bowel Sounds. absent: Tenderness Assessment and Plan (1) COPD exacerbation Status: Acute (2) Chest pain Status: Acute (3) Alcohol abuse with intoxication Status: Chronic (4) CAD (coronary artery disease) Status: Chronic
[2018-01-22] MEDS: Albuterol-Ipratrop 3 mg / 0.5 (3 ml) UD INH SCH ×4 (01:21→19:44)
--- NOTE | 2018-01-22 04:05 | CON ---
DATE: 01/21/2018 CARDIOLOGY CONSULTATION REASON FOR CONSULTATION: Shortness of breath. HISTORY OF PRESENT ILLNESS: The patient is 62 years old male, who has history of coronary artery disease, status post coronary artery bypass surgery three years ago at [facility], history of EtOH abuse, and history of smoking. The patient uses nasal O2 at home. He was admitted because of worsening shortness of breath and orthopnea. The patient denies any retrosternal chest pain. SOCIAL HISTORY: The patient is a smoker, and he is an EtOH abuser. MEDICATIONS: Cozaar 50 mg once a day, aspirin 81 mg once a day, Ferrlecit infusion, Flomax 0.4 mg once a day, Lexapro 2 mg once a day, Lovenox 40 mg subcutaneously once a day, Topamax 50 mg twice a day, multivitamin/minerals one tablet once a day, thiamine 100 mg once a day. REVIEW OF SYSTEMS: No nausea or vomiting. No dizziness or syncope. PHYSICAL EXAMINATION: GENERAL: The patient is a middle aged male, who does not appear to be in acute distress. VITAL SIGNS: Blood pressure 180/84, heart rate 86, temperature 98.4, respirations 18. HEENT: Pale conjunctivae. CHEST: Bilateral rhonchi. HEART: S1 and S2 are regular and distant. ABDOMEN: Soft. EXTREMITIES: Trace leg edema. LABORATORY DATA: EKG revealed sinus rhythm at rate of 65, left atrial enlargement, nonspecific ST-T wave changes. Chest x-ray revealed cardiomegaly and permanent bronchovascular markings. The most recent echocardiogram study performed in 10/2017 at [facility] revealed normal left ventricular systolic function, aortic sclerosis. Cardiac catheterization performed in 07/2015, the patient underwent PCI to the right posterior descending artery by a saphenous vein graft with a bare-metal stent. ASSESSMENT: 1. Consider diastolic heart failure. 2. Chronic obstructive lung disease. 3. EtOH abuse. 4. Coronary artery disease, status post coronary artery bypass surgery and bare-metal stenting to the posterior descending artery in 07/2015. 5. Anemia. 6. Alcohol intoxication, the patient's alcohol level on admission was 315. RECOMMENDATIONS: Continue current Cozaar 60 mg once a day, aspirin 81 mg once a day, and Ferrlecit infusion. Continue folic acid, thiamine, subcutaneous Lovenox 40 mg once a day. Obtain serum D-dimer and urine for drug screen. Maxwell Moreno MD
[2018-01-22 06:46] LABS: BLOOD UREA NITROGEN 7 mg/dL (9-20); CALCIUM 8.4 mg/dl (8.6-10.4); GFR AFRICAN-AMERICAN > 60; GFR NON-AFRICAN AMERICAN > 60
[2018-01-22] MEDS: Pantoprazole 40 mg EC Tab PO SCH (10:44)
[2018-01-22] MEDS: Metoprolol Succinate 25 mg XL Tab PO SCH (10:44)
[2018-01-22] MEDS: Enoxaparin 40 mg Syringe SC SCH (10:44)
[2018-01-22] MEDS: Multivitamin With Minerals Tab PO SCH (10:44)
--- NOTE | 2018-01-22 11:00 | CARD ---
APPROVED REPORT EKG Measurement Heart [id number] <Conclusion> Normal sinus rhythm Possible Left atrial enlargement Nonspecific T wave abnormality Abnormal ECG
[2018-01-22] MEDS: Ferric Sodium Gluconat Complex 62.5 mg/5 ml Vial IVPB SCH (11:11)
--- NOTE | 2018-01-22 15:11 | VASCLAB ---
PROCEDURE: Lower Extremity Venous Duplex Exam. HISTORY: Elevated D-dimer PRIORS: None. TECHNIQUE: Bilateral common femoral, femoral, popliteal and posterior tibial, peroneal and great saphenous veins were evaluated. Flow was assessed with color Doppler, compressibility, assessment of phasic flow and augmentation response. Report prepared by Galo Robbins, MARILYN, RVT FINDINGS: RIGHT: 1. Common Femoral Vein: 1.1. Compressibility - Fully compressible: Thrombus - None : Flow - Phasic: Augmentation -Normal: Reflux - None. 2. Femoral Vein: 2.1. Compressibility - Fully compressible: Thrombus - None : Flow - Phasic: Augmentation -Normal: Reflux - None. 3. Popliteal Vein: 3.1. Compressibility - Fully compressible: Thrombus - None : Flow - Phasic: Augmentation -Normal: Reflux - None. 4. Posterior Tibial Vein: 4.1. Compressibility - Fully compressible: Thrombus - None: Flow - Phasic: Augmentation -Normal: Reflux - None. 5. Peroneal Vein: 5.1. Compressibility - Fully compressible: Thrombus - None: Flow - Phasic: Augmentation -Normal: Reflux - None. 6. Great Saphenous Vein: 6.1. Compressibility - : Thrombus - : Flow - : Augmentation - : Reflux - . LEFT: 1. Common Femoral Vein: 1.1. Compressibility - Fully compressible: Thrombus - None: Flow - Phasic: Augmentation -Normal: Reflux - None. 2. Femoral Vein: 2.1. Compressibility - Fully compressible: Thrombus - None: Flow - Phasic: Augmentation -Normal: Reflux - None. 3. Popliteal Vein: 3.1. Compressibility - Fully compressible: Thrombus - None : Flow - Phasic: Augmentation -Normal: Reflux - None. 4. Posterior Tibial Vein: 4.1. Compressibility - Fully compressible: Thrombus - None: Flow - Phasic: Augmentation -Normal: Reflux - None. 5. Peroneal Vein: 5.1. Compressibility - Fully compressible: Thrombus - None: Flow - Phasic: Augmentation -Normal: Reflux - None. 6. Great Saphenous Vein: 6.1. Compressibility - : Thrombus - : Flow - : Augmentation - : Reflux - . OTHER FINDINGS: Bilateral greater saphenous vein has been previously removed. IMPRESSION: Right: No evidence of deep or superficial vein thrombosis of the right lower extremity. Normal valve function noted of the right side. Left: No evidence of deep or superficial vein thrombosis of the left lower extremity. Normal valve function noted of the left side.
[2018-01-22] MEDS: guaiFENesin 100 mg/5 ml Syrup UD PO PRN (15:14)
[2018-01-22] MEDS: Magnesium Sulfate 1 gm in D5W 1 GM/100 ML BAG IVPB SCH ×2 (16:35→17:15)
--- NOTE | 2018-01-22 21:33 | PN ---
DATE: SUBJECTIVE: Today, the patient is experiencing productive cough and shortness of breath. No retrosternal chest pain. PHYSICAL EXAMINATION VITAL SIGNS: Blood pressure 121/59, heart rate 77, temperature 98.9, respirations 20. HEENT: Pale conjunctivae. CHEST: Bibasilar rhonchi. HEART: Heart sounds regular. ABDOMEN: Soft. EXTREMITIES: No edema. LABORATORY DATA: SMA-7: Sodium 139, potassium 3.7, chloride 104, CO2 25, glucose 92, BUN 7, creatinine 0.9. Venous Doppler of the lower extremities, no evidence of DVT. D-dimer was mildly elevated to 256. ASSESSMENT: 1. Exacerbation for chronic obstructive lung disease. 2. Coronary artery disease, status post coronary artery bypass surgery. 3. Anemia. 4. Status post alcohol intoxication. 5. Hypertension. 6. Depression. CONDITION: Continue Cozaar 50 mg once a day, aspirin 81 mg twice a day, Ferrlecit infusion, folic acid 1 mg once a day, Lexapro 10 mg once daily, Librium 25 mg every 8 hours p.r.n. orally, gabapentin 100 mg t.i.d., Protonix 40 mg twice a day, Topamax 25 mg once a day, thiamine 100 mg once a day. Today's magnesium level was 1.4, and the patient is currently receiving IV magnesium replacement. A followup magnesium level in a.m. as well as . Maxwell Moreno MD
--- NOTE | 2018-01-22 23:15 | CP.PCM.PN ---
Subjective - Date & Time of Evaluation Date of Evaluation: 01/22/18 Time of Evaluation: 17:00 - Subjective Subjective: pt seen and examined at bedside, pt is anxious, depressed, coughing and wheezing on nebulizer treatment Objective - Vital Signs/Intake and Output Vital Signs (last 24 hours): Temp Pulse Resp BP Pulse Ox 98.9 F 77 20 121/59 L 96 01/22/18 15:51 01/22/18 15:51 01/22/18 15:51 01/22/18 15:51 01/22/18 15:51 - Medications Medications: Current Medications Albuterol/Ipratropium (Duoneb 3 Mg/0.5 Mg (3 Ml) Ud) 3 ml INH RQ6 [facility] Last Admin: 01/22/18 19:44 Dose: 3 ml Aspirin (Ecotrin) 81 mg PO DAILY [facility] Last Admin: 01/22/18 10:44 Dose: 81 mg Chlordiazepoxide (Librium) 25 mg PO Q8 PRN PRN Reason: Anxiety Stop: 01/23/18 17:15 Last Admin: 01/22/18 02:08 Dose: 25 mg Chlordiazepoxide (Librium) 25 mg PO Q6 [facility] PRN Reason: Taper Stop: 01/25/18 23:59 Last Admin: 01/22/18 18:21 Dose: 25 mg Enoxaparin Sodium (Lovenox) 40 mg SC DAILY [facility] Last Admin: 01/22/18 10:44 Dose: 40 mg Escitalopram Oxalate (Lexapro) 10 mg PO DAILY [facility] Last Admin: 01/22/18 10:46 Dose: 10 mg Ferric Sodium Gluconate Complex (Ferrlecit) 125 mg IVPB DAILY [facility] Stop: 01/29/18 16:01 Last Admin: 01/22/18 11:11 Dose: 125 mg Folic Acid (Folic Acid) 1 mg PO DAILY [facility] Last Admin: 01/22/18 10:44 Dose: 1 mg Gabapentin (Neurontin) 100 mg PO TID [facility] Last Admin: 01/22/18 18:20 Dose: 100 mg Guaifenesin (Robitussin) 100 mg PO Q4H PRN PRN Reason: Cough Last Admin: 01/22/18 15:14 Dose: 100 mg Losartan Potassium (Cozaar) 50 mg PO DAILY [facility] Last Admin: 01/22/18 10:44 Dose: 50 mg Metoprolol Succinate (Toprol Xl) 25 mg PO DAILY [facility] Last Admin: 01/22/18 10:44 Dose: 25 mg Multivitamins/Minerals (Therapeutic-M Tab) 1 tab PO DAILY [facility] Last Admin: 01/22/18 10:44 Dose: 1 tab Pantoprazole Sodium (Protonix Ec Tab) 40 mg PO DAILY [facility] Last Admin: 01/22/18 10:44 Dose: 40 mg Tamsulosin HCl (Flomax) 0.4 mg PO HS [facility] Last Admin: 01/22/18 23:12 Dose: 0.4 mg Thiamine HCl (Vitamin B1 Tab) 100 mg PO DAILY [facility] Last Admin: 01/22/18 10:44 Dose: 100 mg Topiramate (Topamax) 50 mg PO BID [facility] Last Admin: 01/22/18 18:21 Dose: 50 mg - Labs Labs: 01/21/18 06:47 01/22/18 06:21 - Constitutional Appears: No Acute Distress - Head Exam Head Exam: ATRAUMATIC, NORMAL INSPECTION, NORMOCEPHALIC - Respiratory Exam Respiratory Exam: Decreased Breath Sounds, Rales, Rhonchi, NORMAL BREATHING PATTERN - Cardiovascular Exam Cardiovascular Exam: REGULAR RHYTHM, +S1, +S2. absent: Murmur - GI/Abdominal Exam GI & Abdominal Exam: Soft, Normal Bowel Sounds. absent: Tenderness Assessment and Plan (1) Chest pain Status: Acute (2) Alcohol abuse with intoxication Status: Chronic (3) Alcohol intoxication Status: Acute (4) Alcohol withdrawal Status: Acute
[2018-01-23] MEDS: Albuterol-Ipratrop 3 mg / 0.5 (3 ml) UD INH SCH ×3 (02:03→13:38)
[2018-01-23 06:23] LABS: BASO # 0.1 K/uL (0.0-0.2); BASO % 1.5 % (0.0-2.0); EOS # 0.2 K/uL (0.0-0.7); EOS % 3.3 % (0.0-4.0); HEMOGLOBIN 9.7 g/dL (12.0-18.0); LYMPH % 14.1 % (20.0-40.0); MEAN CELL VOLUME 73.6 fL (80.0-94.0); MEAN CORPUSCULAR HEMOGLOBIN 22.5 pg (27.0-31.0); MEAN CORPUSCULAR HGB CONC 30.6 g/dL (33.0-37.0); MEAN PLATELET VOLUME 8.6 fL (7.2-11.7); MONO % 13.4 % (0.0-10.0); NEUT % 67.7 % (50.0-75.0); RBC 4.29 Mil/uL (4.40-5.90); WHITE BLOOD COUNT 7.4 K/uL (4.8-10.8)
[2018-01-23 06:42] LABS: ALBUMIN 3.4 g/dL (3.5-5.0); ALT/SGPT 22 U/L (21-72); AST/SGOT 22 U/L (17-59); BLOOD UREA NITROGEN 8 mg/dL (9-20); CALCIUM 8.5 mg/dl (8.6-10.4); GFR AFRICAN-AMERICAN > 60; GFR NON-AFRICAN AMERICAN > 60
[2018-01-23] MEDS: Multivitamin With Minerals Tab PO SCH (09:06)
[2018-01-23] MEDS: Pantoprazole 40 mg EC Tab PO SCH (09:06)
[2018-01-23] MEDS: guaiFENesin 100 mg/5 ml Syrup UD PO PRN (09:07)
[2018-01-23] MEDS: Metoprolol Succinate 25 mg XL Tab PO SCH (09:07)
[2018-01-23] MEDS: Enoxaparin 40 mg Syringe SC SCH (10:00)
[2018-01-23] MEDS: Ferric Sodium Gluconat Complex 62.5 mg/5 ml Vial IVPB SCH (10:00)
--- NOTE | 2018-01-23 20:51 | PN ---
DATE: SUBJECTIVE: The patient is still experiencing shortness of breath and productive cough. No retrosternal chest pain. PHYSICAL EXAMINATION: VITAL SIGNS: Blood pressure 146/72, heart rate 69, temperature 97.8, respirations 20. HEENT: Pale conjunctivae. CHEST: Bilateral rhonchi. HEART: Heart sounds regular. EXTREMITIES: No edema. LABORATORY DATA: Hemoglobin and hematocrit are 9.7 and 31.6, white count and platelet counts are within normal limits. Today's SMA-7 is within normal limits except for BUN of 8, calcium is below normal at 8.5. ASSESSMENT: 1. Exacerbation of chronic obstructive lung disease. 2. Coronary artery disease, status post coronary artery bypass surgery. 3. EtOH abuse. 4. Hypomagnesemia. 5. Hypertension. RECOMMENDATIONS: Continue current thiamine 100 mg once a day, Toprol-XL at 25 mg once a day, Robitussin 100 mg p.o. q.4 hours p.r.n., Protonix 40 mg p.o. once a day, Neurontin 100 mg t.i.d., Lovenox 40 mg subcutaneously once a day, Librium 25 mg t.i.d., Lexapro 10 mg once a day, folic acid 1 mg once a day, Ferrlecit infusion, Cozaar 50 mg once a day, albuterol inhaler q.6 hours p.r.n., aspirin 81 mg once a day. Start Slow-Mag at 1 tablet p.o. twice a day. Maxwell Moreno MD
[2018-01-23] MEDS: Magnesium Chloride 64 mg ER Tab PO SCH (22:04)
--- NOTE | 2018-01-24 00:11 | PN ---
DATE: SUBJECTIVE: The patient is still anxious. He is withdrawing from alcohol, and he is having some cough and wheezing. PHYSICAL EXAMINATION: VITAL SIGNS: Blood pressure is 113/66, pulse 63, respiratory rate 18, temperature 98.6. LUNGS: Bilateral rhonchi. Decreased air entry. CVS: S1, S2 regular. ABDOMEN: Soft. ASSESSMENT: 1. Delirium tremens. 2. Status post alcohol intoxication/alcoholism. 3. Depression. 4. Anemia of chronic disease. 5. Hypertension. PLAN: Medical management. Monitor the patient. Dennys Vasquez MD
[2018-01-24] MEDS: Albuterol-Ipratrop 3 mg / 0.5 (3 ml) UD INH SCH ×4 (01:09→19:14)
[2018-01-24] MEDS: Multivitamin With Minerals Tab PO SCH (09:57)
[2018-01-24] MEDS: Pantoprazole 40 mg EC Tab PO SCH (09:57)
[2018-01-24] MEDS: Metoprolol Succinate 25 mg XL Tab PO SCH (09:57)
[2018-01-24] MEDS: Magnesium Chloride 64 mg ER Tab PO SCH ×2 (09:58→17:50)
[2018-01-24] MEDS: Enoxaparin 40 mg Syringe SC SCH (09:59)
[2018-01-24] MEDS: Ferric Sodium Gluconat Complex 62.5 mg/5 ml Vial IVPB SCH (10:00)
[2018-01-24] MEDS: guaiFENesin 100 mg/5 ml Syrup UD PO PRN (13:42)
--- NOTE | 2018-01-24 21:46 | PN ---
DATE: 01/24/2018 SUBJECTIVE: The patient denies chest pain. He is comfortable on nasal O2. Minimal productive cough. PHYSICAL EXAMINATION: VITAL SIGNS: Blood pressure 112/66, heart rate 65, temperature 98.4, respirations 20. HEENT: Pale conjunctiva. CHEST: Bilateral rhonchi. HEART: S1 and S2, regular. EXTREMITIES: Show no edema. LABORATORY DATA: Today's blood sugars are 95 and 132 respectively. ASSESSMENT: 1. Exacerbation of chronic obstructive lung disease. 2. Coronary artery disease, status post coronary artery bypass surgery. 3. Status post alcohol intoxication. 4. Hypertension. 5. Diastolic heart failure. RECOMMENDATIONS: Continue Cozaar at 50 mg once a day, albuterol inhaler, aspirin 81 mg once a day, Ferrlecit infusion, Librium 25 mg twice a day p.r.n., Neurontin 100 mg t.i.d., Slow-Mag 64 mg twice a day, Toprol-XL 25 mg twice a day. The patient can be discharged from the cardiac point. Maxwell Moreno MD
--- NOTE | 2018-01-24 22:34 | CP.PCM.PN ---
Subjective - Date & Time of Evaluation Date of Evaluation: 01/24/18 Time of Evaluation: 17:00 - Subjective Subjective: Pt is seen and evaluated during routine follow up rounds today Objective - Vital Signs/Intake and Output Vital Signs (last 24 hours): Temp Pulse Resp BP Pulse Ox 98.5 F 69 20 116/69 99 01/24/18 15:00 01/24/18 15:00 01/24/18 15:00 01/24/18 15:00 01/24/18 15:00 - Medications Medications: Current Medications Albuterol/Ipratropium (Duoneb 3 Mg/0.5 Mg (3 Ml) Ud) 3 ml INH RQ6 [facility] Last Admin: 01/24/18 19:14 Dose: 3 ml Aspirin (Ecotrin) 81 mg PO DAILY [facility] Last Admin: 01/24/18 09:57 Dose: 81 mg Chlordiazepoxide (Librium) 25 mg PO BID [facility] PRN Reason: Taper Stop: 01/25/18 23:59 Last Admin: 01/24/18 17:50 Dose: 25 mg Enoxaparin Sodium (Lovenox) 40 mg SC DAILY [facility] Last Admin: 01/24/18 09:59 Dose: 40 mg Escitalopram Oxalate (Lexapro) 10 mg PO DAILY [facility] Last Admin: 01/24/18 09:58 Dose: 10 mg Ferric Sodium Gluconate Complex (Ferrlecit) 125 mg IVPB DAILY [facility] Stop: 01/29/18 16:01 Last Admin: 01/24/18 10:00 Dose: 125 mg Folic Acid (Folic Acid) 1 mg PO DAILY [facility] Last Admin: 01/24/18 09:58 Dose: 1 mg Gabapentin (Neurontin) 100 mg PO TID [facility] Last Admin: 01/24/18 17:50 Dose: 100 mg Guaifenesin (Robitussin) 100 mg PO Q4H PRN PRN Reason: Cough Last Admin: 01/24/18 13:42 Dose: 100 mg Losartan Potassium (Cozaar) 50 mg PO DAILY [facility] Last Admin: 01/24/18 09:57 Dose: 50 mg Magnesium Chloride (Slow-Mag) 64 mg PO BID [facility] Last Admin: 01/24/18 17:50 Dose: 64 mg Metoprolol Succinate (Toprol Xl) 25 mg PO DAILY [facility] Last Admin: 01/24/18 09:57 Dose: 25 mg Multivitamins/Minerals (Therapeutic-M Tab) 1 tab PO DAILY [facility] Last Admin: 01/24/18 09:57 Dose: 1 tab Pantoprazole Sodium (Protonix Ec Tab) 40 mg PO DAILY [facility] Last Admin: 01/24/18 09:57 Dose: 40 mg Tamsulosin HCl (Flomax) 0.4 mg PO HS [facility] Last Admin: 01/24/18 21:34 Dose: 0.4 mg Thiamine HCl (Vitamin B1 Tab) 100 mg PO DAILY [facility] Last Admin: 01/24/18 09:57 Dose: 100 mg Topiramate (Topamax) 50 mg PO BID [facility] Last Admin: 01/24/18 17:54 Dose: 50 mg - Labs Labs: 01/23/18 06:15 01/23/18 06:15 Assessment and Plan (1) Chest pain Status: Acute (2) Alcohol abuse with intoxication Status: Chronic (3) Alcohol intoxication Status: Acute (4) Alcohol withdrawal Status: Acute
[2018-01-25] MEDS: Albuterol-Ipratrop 3 mg / 0.5 (3 ml) UD INH SCH ×3 (01:14→13:07)
[2018-01-25] MEDS: Metoprolol Succinate 25 mg XL Tab PO SCH (10:08)
[2018-01-25] MEDS: Ferric Sodium Gluconat Complex 62.5 mg/5 ml Vial IVPB SCH (10:08)
[2018-01-25] MEDS: Pantoprazole 40 mg EC Tab PO SCH (10:08)
[2018-01-25] MEDS: Magnesium Chloride 64 mg ER Tab PO SCH ×2 (10:08→17:37)
[2018-01-25] MEDS: Enoxaparin 40 mg Syringe SC SCH (10:08)
[2018-01-25] MEDS: Multivitamin With Minerals Tab PO SCH (10:08)
[2018-01-25 15:45] VITALS: BP 106/68; PULSE 61; RESP 20; TEMP 98.2; O2SAT 100
--- NOTE | 2018-01-25 19:30 | PN ---
DATE: 01/25/2018 SUBJECTIVE: The patient denies chest pain. He is experiencing shortness of breath and mild cough. PHYSICAL EXAMINATION: VITAL SIGNS: Blood pressure 111/66, heart rate 68, temperature 98, respirations 18. HEENT: Pale conjunctiva. CHEST: Bibasilar rhonchi HEART: S1 and S2, regular. ABDOMEN: Soft. EXTREMITIES: No pedal edema. LABORATORY DATA: Today's blood sugar is 117. ASSESSMENT: 1. Exacerbation of chronic obstructive lung disease. 2. Coronary artery disease, status post coronary artery bypass surgery. 3. EtOH abuse. 4. Anemia. RECOMMENDATIONS: Continue current thiamine 100 mg once a day, Toprol-XL 25 mg once a day, Slow-Mag 64 mg twice a day, Robitussin 10 mg p.o. q.4 hours p.r.n., Protonix 40 mg once a day, Neurontin 100 mg t.i.d., Lovenox 40 mg subcutaneously daily, Librium 25 mg daily orally, Lexapro 10 mg once a day, folic acid 1 mg once a day, Flomax 0.4 mg once a day, aspirin 81 mg once a day, and Ferrlecit infusion. Maxwell Moreno MD
--- NOTE | 2018-01-25 22:40 | CP.PCM.DIS ---
Provider - Provider Date of Admission: 01/22/18 16:00 Attending physician: Dennys Vasquez MD Time Spent in preparation of Discharge (in minutes): 52 Diagnosis - Discharge Diagnosis (1) Chest pain Status: Acute Priority: High (2) Alcohol abuse with intoxication Status: Chronic Priority: Medium (3) Alcohol intoxication Status: Acute (4) Alcohol withdrawal Status: Acute Hospital Course - Lab Results Lab Results: Most Recent Lab Values WBC 7.4 K/uL (4.8-10.8) 01/23/18 06:15 RBC 4.29 Mil/uL (4.40-5.90) L 01/23/18 06:15 Hgb 9.7 g/dL (12.0-18.0) L 01/23/18 06:15 Hct 31.6 % (35.0-51.0) L 01/23/18 06:15 MCV 73.6 fL (80.0-94.0) L 01/23/18 06:15 MCH 22.5 pg (27.0-31.0) L 01/23/18 06:15 MCHC 30.6 g/dL (33.0-37.0) L 01/23/18 06:15 RDW 19.0 % (11.5-14.5) H 01/23/18 06:15 Plt Count 197 K/uL (130-400) 01/23/18 06:15 MPV 8.6 fL (7.2-11.7) 01/23/18 06:15 Neut % (Auto) 67.7 % (50.0-75.0) 01/23/18 06:15 Lymph % (Auto) 14.1 % (20.0-40.0) L 01/23/18 06:15 Maverick % (Auto) 13.4 % (0.0-10.0) H 01/23/18 06:15 Eos % (Auto) 3.3 % (0.0-4.0) 01/23/18 06:15 Baso % (Auto) 1.5 % (0.0-2.0) 01/23/18 06:15 Neut # (Auto) 5.0 K/uL (1.8-7.0) 01/23/18 06:15 Lymph # (Auto) 1.0 K/uL (1.0-4.3) 01/23/18 06:15 Maverick # (Auto) 1.0 K/uL (0.0-0.8) H 01/23/18 06:15 Eos # (Auto) 0.2 K/uL (0.0-0.7) 01/23/18 06:15 Baso # (Auto) 0.1 K/uL (0.0-0.2) 01/23/18 06:15 D-Dimer, Quantitative 256 ng/mlDDU (0-243) H 01/21/18 16:44 Sodium 141 mmol/L (132-148) 01/23/18 06:15 Potassium 3.8 mmol/L (3.6-5.2) 01/23/18 06:15 Chloride 105 mmol/L (98-107) 01/23/18 06:15 Carbon Dioxide 23 mmol/L (22-30) 01/23/18 06:15 Anion Gap 17 (10-20) 01/23/18 06:15 BUN 8 mg/dL (9-20) L 01/23/18 06:15 Creatinine 0.9 mg/dL (0.8-1.5) 01/23/18 06:15 Est GFR ( Amer) > 60 01/23/18 06:15 Est GFR (Non-Af Amer) > 60 01/23/18 06:15 POC Glucose (mg/dL) 96 mg/dL (65-110) 01/25/18 16:23 Random Glucose 87 mg/dL (75-110) 01/23/18 06:15 Calcium 8.5 mg/dl (8.6-10.4) L 01/23/18 06:15 Magnesium 1.9 mg/dL (1.6-2.3) 01/23/18 06:15 Total Bilirubin 0.4 mg/dL (0.2-1.3) 01/23/18 06:15 AST 22 U/L (17-59) 01/23/18 06:15 ALT 22 U/L (21-72) 01/23/18 06:15 Alkaline Phosphatase 56 U/L (38-126) 01/23/18 06:15 Troponin I 0.0250 ng/mL (0.00-0.120) 01/21/18 14:43 Total Protein 6.8 g/dL (6.3-8.3) 01/23/18 06:15 Albumin 3.4 g/dL (3.5-5.0) L 01/23/18 06:15 Globulin 3.4 gm/dL (2.2-3.9) 01/23/18 06:15 Albumin/Globulin Ratio 1.0 (1.0-2.1) 01/23/18 06:15 Urine Opiates Screen Negative (NEGATIVE) 01/21/18 16:29 Urine Methadone Screen Negative (NEGATIVE) 01/21/18 16:29 Ur Barbiturates Screen Negative (NEGATIVE) 01/21/18 16:29 Ur Phencyclidine Scrn Negative (NEGATIVE) 01/21/18 16:29 Ur Amphetamines Screen Negative (NEGATIVE) 01/21/18 16:29 U Benzodiazepines Scrn Positive (NEGATIVE) 01/21/18 16:29 U Oth Cocaine Metabols Negative (NEGATIVE) 01/21/18 16:29 U Cannabinoids Screen Negative (NEGATIVE) 01/21/18 16:29 Alcohol, Quantitative 313 mg/dl (0-10) H 01/20/18 14:32 - Hospital Course Hospital Course: Pt is for discharge today, seen and examined is doing well Discharge Exam - Head Exam Head Exam: ATRAUMATIC, NORMAL INSPECTION, NORMOCEPHALIC - Eye Exam Eye Exam: EOMI, Normal appearance, PERRL Pupil Exam: NORMAL ACCOMODATION, PERRL - ENT Exam ENT Exam: Mucous Membranes Moist - Respiratory Exam Respiratory Exam: Clear to PA & Lateral, NORMAL BREATHING PATTERN - Cardiovascular Exam Cardiovascular Exam: REGULAR RHYTHM, +S1, +S2 - GI/Abdominal Exam GI & Abdominal Exam: Normal Bowel Sounds - Rectal Exam Rectal Exam: Deferred - Exam Exam: NORMAL INSPECTION - Extremities Exam Extremities exam: pedal edema - Back Exam Back exam: absent: CVA tenderness (L), CVA tenderness (R), FULL ROM, muscle spasm, NORMAL INSPECTION, paraspinal tenderness, rash noted, tenderness, vertebral tenderness Discharge Plan - Follow Up Plan Condition: STABLE Disposition: HOME/ ROUTINE Instructions: Heart Healthy Diet, Chest Pain (DC), Exacerbation of COPD (DC), Alcohol Abuse and Alcoholism (DC), Effects of Alcohol on Your Health Additional Instructions: continue home medications as per med rec, follow up with Dr. marisa in the office in 1-2 days, return to ER for worsening symptoms. Referrals: Maxwell Moreno MD [Staff Provider] - Venkata Lazo MD [Staff Provider] - Dennys Vasquez MD [Staff Provider] -
--- NOTE | 2018-02-25 15:01 | DS ---
ADMISSION DIAGNOSIS: Chest pain. HISTORY OF PRESENT ILLNESS: This is a 62-year-old white male with history of depression, anxiety, hypertension, history of prior heart problems, status post CABG many years ago, who came in because of chest pain. [place] was ruled out by three sets of negative cardiac enzymes. He was intoxicated, he was treated with DT precautions, seizure precaution, IV fluid, banana bag, Librium as needed as well. DISCHARGE DIAGNOSES: 1. Noncoronary chest pain. 2. Alcohol abuse with intoxication. 3. Dehydration. 4. Hypertension. PLAN: Discharge patient. CONDITION UPON DISCHARGE: Stable. Dennys Vasquez MD
== END 2018-01-25 18:18 | disposition home or self-care (01) | DRG 191 ==
LOC: C.ER 13:28 → C.6T 16:03 → OBSVTOIN 01-22 16:00
PROVIDERS: ADMIT Internal Medicine; ATTEND Internal Medicine
DX: J44.1 Chronic obstructive pulmonary disease with (acute) exacerbation (principal); F10.231 Alcohol dependence with withdrawal delirium; I13.0 Hypertensive heart and chronic kidney disease with heart failure and stage 1 through stage 4 chronic kidney disease, or unspecified chronic kidney disease; I50.30 Unspecified diastolic (congestive) heart failure; E11.22 Type 2 diabetes mellitus with diabetic chronic kidney disease; E83.42 Hypomagnesemia; D63.8 Anemia in other chronic diseases classified elsewhere; E78.00 Pure hypercholesterolemia, unspecified; E78.5 Hyperlipidemia, unspecified; F06.4 Anxiety disorder due to known physiological condition; F17.200 Nicotine dependence, unspecified, uncomplicated; G47.30 Sleep apnea, unspecified; F31.9 Bipolar disorder, unspecified; I25.10 Atherosclerotic heart disease of native coronary artery without angina pectoris; N18.9 Chronic kidney disease, unspecified; K21.9 Gastro-esophageal reflux disease without esophagitis; N40.0 Benign prostatic hyperplasia without lower urinary tract symptoms; E86.0 Dehydration; R79.1 Abnormal coagulation profile; Y90.8 Blood alcohol level of 240 mg/100 ml or more; Z87.01 Personal history of pneumonia (recurrent); Z95.1 Presence of aortocoronary bypass graft; Z95.5 Presence of coronary angioplasty implant and graft; Z99.81 Dependence on supplemental oxygen

== ENCOUNTER 2018-03-29 19:27 | Emergency (ER) | payer MEDICAID, MEDICARE, OTHER ==
[2018-03-29 19:27] VITALS: BMI 29.2
[2018-03-29 19:34] VITALS: BP 133/74; PULSE 66; RESP 18; TEMP 98.6; O2SAT 99
--- NOTE | 2018-03-29 19:51 | C.PDOC ---
History Of Present Illness 62 year old male with PMHx of CAD and alcohol dependance, chronic pain presents to the ED for evaluation of left shoulder pain. Patient states yesterday while drinking his usual rum he fell landing on his left shoulder. Patient currently c /o left shoulder pain patient thinks " my shoulder is dislocated". Patient admits to heavy alcohol consumption last rink was 1 hour [employer]. Patient also is taking opioids for chronic back pain and is also requesting detox. Patient denies LOC, headache, head injury, weakness, numbness. Chief Complaint (Nursing): Upper Extremity Problem/Injury History Per: Patient History/Exam Limitations: no limitations Onset/Duration Of Symptoms: Days Quality: "Pain" Recent travel outside of the [place]: No Additional History Per: Patient Past Medical History Reviewed: Historical Data, Nursing Documentation, Vital Signs Vital Signs: Last Vital Signs Temp 98.6 F 03/29/18 19:31 Pulse 66 03/29/18 19:31 Resp 18 03/29/18 19:31 BP 133/74 03/29/18 19:31 Pulse Ox 99 03/29/18 21:35 - Medical History PMH: Anxiety, Arthritis, Asthma, Benign Prostatic Hyperplasia, Bipolar Disorder , Bronchitis, CAD, Cardia Arrhythmia, COPD, Depression, Diabetes, Emphysema, Gastritis, Hepatitis (PATIENT STATED HE HAS HEPATITIS BUT COULD NOT RECALL WHICH ONE), HTN, Hypercholesterolemia, Hyperlipidemia, Migraine, Pancreatitis, Pneumonia, Seizures (ETOH related), Sleep Apnea Denies: Anemia, Diverticulitis, Fractures, HIV, Hyperthyroidism, Hypothyroidism, Pulmonary Embolism, Chronic Kidney Disease, Sickle Cell Disease , Sexually Transmitted Disease Surgical History: CABG ((quadruple bypass) 2010), Coronary Stent - [facility] ALCOHOL DETOXIFICATION (03/12/15) CORONAR ARTERIOGR-2 CATH (07/24/15) CORONARY ARTERY STENT INSERTION [id number] (07/24/15) DETOXIFICATION SERVICES FOR SUBSTANCE ABUSE TREATMENT (12/18/17) ESOPHAGOGASTRODUODENOSCOPY [EGD] W/CLOSED BIOPSY (05/21/13) EXCISION OF DESCENDING COLON, ENDO, DIAGN (06/01/17) EXCISION OF STOMACH, ENDO, DIAGN (06/01/17) GROUP PSYCHOTHERAPY (02/23/18) INDIV PSYCHOTHERAPY FOR SUBSTANCE ABUSE TREATMENT, SUPPORT (11/09/17) INDIV PSYCHOTHERAPY FOR SUBSTANCE ABUSE, COGNITIV BEHAVIORAL (11/09/17) INDIV PSYCHOTHERAPY FOR SUBSTANCE ABUSE, MOTIVATION ENHANCE (11/29/17) INDIV PSYCHOTHERAPY FOR SUBSTANCE ABUSE, PSYCHOEDUCATION (11/29/17) INDIVID PSYCHOTHERAP NEC (11/04/14) INDIVIDUAL PSYCHOTHERAPY, BEHAVIORAL (02/23/18) INDIVIDUAL PSYCHOTHERAPY, COGNITIVE-BEHAVIORAL (11/19/16) INDIVIDUAL PSYCHOTHERAPY, SUPPORTIVE (10/02/16) INSERTION OF ONE VASCULAR STENT (07/24/15) INTRODUCE OF OTH THERAP SUBST INTO RESP TRACT, VIA OPENING (02/05/18) IRRIGATION OF EAR (05/23/15) LEFT HEART CARDIAC CATH (07/19/15) LT HEART ANGIOCARDIOGRAM (07/19/15) OTHER GROUP THERAPY (11/04/14) PACKED CELL TRANSFUSION (05/21/13) PERCUTANEOUS TRANSLUMINAL CORONARY ANGIOPLASTY [PTCA] (07/24/15) PROCEDURE ON SINGLE VESSEL (07/24/15) PSYCHIAT DRUG THERAP NEC (11/04/14) RT HEART ANGIOCARDIOGRAM (07/22/15) RT HEART CARDIAC CATH (07/22/15) VACCINATION NEC (09/28/14) Family History: States: Unknown Family Hx - Social History Hx Tobacco Use: Yes Hx Alcohol Use: Yes (HAD HALF A PINT TODAY) Hx Substance Use: No - Immunization History Hx Tetanus Toxoid Vaccination: Yes Hx Influenza Vaccination: Yes Hx Pneumococcal Vaccination: Yes Review Of Systems Constitutional: Negative for: Fever, Chills Cardiovascular: Negative for: Palpitations Respiratory: Negative for: Shortness of Breath Gastrointestinal: Negative for: Nausea, Vomiting Musculoskeletal: Positive for: Shoulder Pain Skin: Negative for: Rash Neurological: Negative for: Weakness, Numbness, Headache Physical Exam - Physical Exam Appears: Non-toxic, No Acute Distress, Other (AOB, slurred speech) Skin: Normal Color, Warm, Dry Head: Atraumatic, Normacephalic Eye(s): bilateral: Normal Inspection, PERRL, EOMI Nose: No Discharge Oral Mucosa: Moist Neck: Normal ROM, Supple Chest: Symmetrical Cardiovascular: Rhythm Regular, No Murmur Respiratory: Normal Breath Sounds, No Rales, No Rhonchi, No Wheezing Gastrointestinal/Abdominal: Soft, No Tenderness, No Guarding, No Rebound Extremity: Normal ROM, Tenderness (left humeral head ), Capillary Refill (< 2 seconds), No Swelling Pulses: Left Radial: Normal, Right Radial: Normal Neurological/Psych: Oriented x3, Normal Speech, Normal Cranial Nerves, Normal Motor, Normal Sensation Gait: Steady ED Course And Treatment - Laboratory Results Result Diagrams: 03/29/18 20:08 03/29/18 20:08 Lab Interpretation: Normal O2 Sat by Pulse Oximetry: 99 (ON RA) Pulse Ox Interpretation: Normal - Other Rad Left shouldr X-Ray X-Ray: Interpreted by Me, Viewed By Me Interpretation: No dislocation, no bony abnormalities, normal X-Ray Medical Decision Making Medical Decision Making: Impression: alcohol abuse, opioid dependency s/p fall Plan: * Labs * Shoulder X-Ray Pt informed of his results,informed that no detox beds were available.Shortly thereafter it was noted that the pt had eloped from the ED without receiving discharge instructions Disposition - Disposition Disposition: ELOPEMENT - ER ONLY Disposition Time: 22:28 Condition: FAIR Forms: [facility] (Italian) - Clinical Impression Clinical Impression: Contusion, Alcohol ingestion, Alcohol abuse with alcohol-induced disorder - Scribe Statement The provider has reviewed the documentation as recorded by the Scribe Ap Garcia All medical record entries made by the Scribe were at my direction and personally dictated by me. I have reviewed the chart and agree that the record accurately reflects my personal performance of the history, physical exam, medical decision making, and the department course for this patient. I have also personally directed, reviewed, and agree with the discharge instructions and disposition.
[2018-03-29 20:13] LABS: BASO # 0.1 K/uL (0.0-0.2); BASO % 1.7 % (0.0-2.0); EOS # 0.1 K/uL (0.0-0.7); EOS % 1.9 % (0.0-4.0); HEMOGLOBIN 11.3 g/dL (12.0-18.0); LYMPH # 2.2 K/uL (1.0-4.3); LYMPH % 36.3 % (20.0-40.0); MEAN CELL VOLUME 77.5 fL (80.0-94.0); MEAN CORPUSCULAR HEMOGLOBIN 25.3 pg (27.0-31.0); MEAN CORPUSCULAR HGB CONC 32.6 g/dL (33.0-37.0); MEAN PLATELET VOLUME 7.5 fL (7.2-11.7); MONO # 0.4 K/uL (0.0-0.8); MONO % 6.9 % (0.0-10.0); NEUT # 3.2 K/uL (1.8-7.0); NEUT % 53.2 % (50.0-75.0); NRBC % 0.1 % (0.0-2.0); RBC 4.47 Mil/uL (4.40-5.90); RED CELL DISTRIBUTION WIDTH 18.7 % (11.5-14.5)
[2018-03-29 20:32] LABS: ALBUMIN 3.8 g/dL (3.5-5.0); BLOOD UREA NITROGEN 9 mg/dL (9-20); CALCIUM 8.5 mg/dl (8.6-10.4); GFR AFRICAN-AMERICAN > 60; GFR NON-AFRICAN AMERICAN > 60
[2018-03-29 20:33] LABS: ALT/SGPT 38 U/L (21-72); AST/SGOT 53 U/L (17-59)
[2018-03-29 21:22] LABS: URINE BILIRUBIN NEGATIVE (NEGATIVE); URINE BLOOD 1+ (NEGATIVE); URINE CLARITY Clear (Clear); URINE COLOR Yellow (YELLOW); URINE GLUCOSE (UA) NORMAL (Normal); URINE LEUKOCYTE ESTERASE NEG Leu/uL (Negative); URINE PROTEIN 2+ mg/dL (NEGATIVE); URINE UROBILINOGEN NORMAL mg/dL (0.2-1.0)
[2018-03-29 21:35] LABS: BARBITURATES, UR NEGATIVE (NEGATIVE); BENZODIAZEPINES, UR NEGATIVE (NEGATIVE); OPIATES, UR NEGATIVE (NEGATIVE); PHENCYCLIDINE, UR NEGATIVE (NEGATIVE)
--- NOTE | 2018-03-30 11:43 | RAD ---
PROCEDURE: Radiographs of the Left Shoulder HISTORY: trauma COMPARISON: Left shoulder 07/12/2015. FINDINGS: BONES: No acute fracture or destructive bony lesion identified. JOINTS: Limited degenerative cortical sclerosis and osteophyte development are seen at the acromioclavicular joint, minimally at the glenohumeral joint. No subluxation or dislocation. SOFT TISSUES: Normal. OTHER FINDINGS: Prior post CABG changes again noted in the chest. IMPRESSION: Limited degenerative changes seen the acromioclavicular and glenohumeral joints without fracture or dislocation of the left shoulder once again.
== END 2018-03-29 20:00 | disposition left against medical advice (07) ==
LOC: C.ER 19:27
DX: T14.8XXA Other injury of unspecified body region, initial encounter (principal); W18.30XA Fall on same level, unspecified, initial encounter; Y92.9 Unspecified place or not applicable; F10.19 Alcohol abuse with unspecified alcohol-induced disorder; Y90.8 Blood alcohol level of 240 mg/100 ml or more; E11.9 Type 2 diabetes mellitus without complications; I10 Essential (primary) hypertension; F17.210 Nicotine dependence, cigarettes, uncomplicated; F11.20 Opioid dependence, uncomplicated
CPT/HCPCS: 73030; 80053; 81001; 82948; 85025; 99284; G0480

== ENCOUNTER 2018-04-20 21:38 | Emergency (ER) | payer OTHER ==
[2018-04-20 21:39] VITALS: BMI 29.2
[2018-04-20 21:57] VITALS: BP 98/58; PULSE 75; RESP 18; TEMP 98.7; O2SAT 95
== END 2018-04-20 21:54 | disposition left against medical advice (07) ==
LOC: SUPCPDRO 21:38 → C.ER 21:38
DX: Z02.89 Encounter for other administrative examinations (principal); R10.9 Unspecified abdominal pain

== ENCOUNTER 2018-04-21 16:05 | Inpatient (IN) | payer OTHER ==
[2018-04-21 16:06] VITALS: BMI 29.2
--- NOTE | 2018-04-21 16:48 | C.PDOC ---
History Of Present Illness 62-year-old male with a PMHx of COPD, hypertension, and peripheral vascular disease, sent in by Dr. Dennys Vasquez for complaints of chest pain and alcohol withdrawal. PMHx is significant for CABG and stent placement performed by Dr. Erwin. Patient states he has had chest pain for a long time. He admits to drinking and smoking daily. Patient states that Dr. Erwin sent him to the ED for admission. Otherwise he denies any SOB, palpitations, diaphoresis, nausea, vomiting, dizziness, or other complaints. Time Seen by Provider: 04/21/18 16:27 Chief Complaint (Nursing): Chest Pain History Per: Patient History/Exam Limitations: no limitations Onset/Duration Of Symptoms: Days Current Symptoms Are (Timing): Still Present Past Medical History Reviewed: Historical Data, Nursing Documentation, Vital Signs Vital Signs: Last Vital Signs Temp 98.6 F 04/21/18 16:41 Pulse 77 04/21/18 16:41 Resp 20 04/21/18 16:41 BP 122/70 04/21/18 16:41 Pulse Ox 98 04/21/18 18:21 - Medical History PMH: Anxiety, Arthritis, Asthma, Benign Prostatic Hyperplasia, Bipolar Disorder , Bronchitis, CAD, Cardia Arrhythmia, COPD, Depression, Diabetes, Emphysema, Gastritis, Hepatitis (PATIENT STATED HE HAS HEPATITIS BUT COULD NOT RECALL WHICH ONE), HTN, Hypercholesterolemia, Hyperlipidemia, Migraine, Pancreatitis, Pneumonia, Seizures (ETOH related), Sleep Apnea Denies: Anemia, Diverticulitis, Fractures, HIV, Hyperthyroidism, Hypothyroidism, Pulmonary Embolism, Chronic Kidney Disease, Sickle Cell Disease , Sexually Transmitted Disease Surgical History: CABG ((quadruple bypass) 2010), Coronary Stent - [facility] Procedures ALCOHOL DETOXIFICATION (03/12/15) CORONAR ARTERIOGR-2 CATH (07/24/15) CORONARY ARTERY STENT INSERTION [id number] (07/24/15) DETOXIFICATION SERVICES FOR SUBSTANCE ABUSE TREATMENT (12/18/17) ESOPHAGOGASTRODUODENOSCOPY [EGD] W/CLOSED BIOPSY (05/21/13) EXCISION OF DESCENDING COLON, ENDO, DIAGN (06/01/17) EXCISION OF STOMACH, ENDO, DIAGN (06/01/17) GROUP PSYCHOTHERAPY (02/23/18) INDIV PSYCHOTHERAPY FOR SUBSTANCE ABUSE TREATMENT, SUPPORT (11/09/17) INDIV PSYCHOTHERAPY FOR SUBSTANCE ABUSE, COGNITIV BEHAVIORAL (11/09/17) INDIV PSYCHOTHERAPY FOR SUBSTANCE ABUSE, MOTIVATION ENHANCE (11/29/17) INDIV PSYCHOTHERAPY FOR SUBSTANCE ABUSE, PSYCHOEDUCATION (11/29/17) INDIVID PSYCHOTHERAP NEC (11/04/14) INDIVIDUAL PSYCHOTHERAPY, BEHAVIORAL (02/23/18) INDIVIDUAL PSYCHOTHERAPY, COGNITIVE-BEHAVIORAL (11/19/16) INDIVIDUAL PSYCHOTHERAPY, SUPPORTIVE (10/02/16) INSERTION OF ONE VASCULAR STENT (07/24/15) INTRODUCE OF OTH THERAP SUBST INTO RESP TRACT, VIA OPENING (02/05/18) IRRIGATION OF EAR (05/23/15) LEFT HEART CARDIAC CATH (07/19/15) LT HEART ANGIOCARDIOGRAM (07/19/15) OTHER GROUP THERAPY (11/04/14) PACKED CELL TRANSFUSION (05/21/13) PERCUTANEOUS TRANSLUMINAL CORONARY ANGIOPLASTY [PTCA] (07/24/15) PROCEDURE ON SINGLE VESSEL (07/24/15) PSYCHIAT DRUG THERAP NEC (11/04/14) RT HEART ANGIOCARDIOGRAM (07/22/15) RT HEART CARDIAC CATH (07/22/15) VACCINATION NEC (09/28/14) Family History: States: Unknown Family Hx - Social History Hx Tobacco Use: Yes Hx Alcohol Use: Yes (HAD HALF A PINT TODAY) Hx Substance Use: No - Immunization History Hx Tetanus Toxoid Vaccination: Yes Hx Influenza Vaccination: Yes Hx Pneumococcal Vaccination: Yes Review Of Systems Except As Marked, All Systems Reviewed And Found Negative. Constitutional: Negative for: Fever, Chills Cardiovascular: Positive for: Chest Pain Respiratory: Negative for: Shortness of Breath Gastrointestinal: Negative for: Nausea, Vomiting Neurological: Negative for: Weakness, Numbness, Headache, Dizziness Physical Exam - Physical Exam Appears: Non-toxic, No Acute Distress Skin: Normal Color, Warm, Dry, No Diaphoretic Head: Atraumatic, Normacephalic Eye(s): bilateral: Normal Inspection, PERRL, EOMI Oral Mucosa: Moist Neck: Normal ROM, Supple Chest: Symmetrical, No Deformity, No Tenderness Cardiovascular: Rhythm Regular, No Murmur Respiratory: Normal Breath Sounds, No Accessory Muscle Use, No Rales, No Rhonchi , No Wheezing Gastrointestinal/Abdominal: Soft, No Tenderness, No Distention Extremity: Bilateral: Atraumatic, Normal Color And Temperature, Normal ROM Pulses: Left Radial: Normal, Right Radial: Normal Neurological/Psych: Oriented x3, Normal Speech Gait: Steady ED Course And Treatment - Laboratory Results Result Diagrams: 04/21/18 16:51 04/21/18 16:51 Lab Interpretation: Abnormal ECG: Interpreted By Me ECG Rhythm: Sinus Rhythm, ST/T Changes ECG Interpretation: No Acute Changes, No Changes From Prior Rate From EC O2 Sat by Pulse Oximetry: 98 (RA) Pulse Ox Interpretation: Normal - Radiology CXR: Interpreted by Me CXR Interpretation: Yes: No Acute Disease Reassessment Condition: Unchanged - Physician Consult Information Physician Contacted: Dennys Vasquez Outcome Of Conversation: admit Medical Decision Making Medical Decision Making: Initial Impression: 62 y/o M with intermittent chest pain Initial Plan: cardiac work-up --EKG --Troponin I --Lipase --CK-MB --Alcohol serum --CMP --CBC --Urinalysis --Chest x-ray Disposition Discussed With : Dennys Vasquez Doctor Will See Patient In The: Hospital - Disposition Disposition: HOSPITALIZED Disposition Time: 18:00 Condition: STABLE - POA Present On Arrival: None - Clinical Impression Clinical Impression: Chest pain, Alcohol dependence - PA / YAM CURER / Resident Statement MD/DO has reviewed & agrees with the documentation as recorded. - Scribe Statement The provider has reviewed the documentation as recorded by the Scribe (Heather Ashford) All medical record entries made by the Scribe were at my direction and personally dictated by me. I have reviewed the chart and agree that the record accurately reflects my personal performance of the history, physical exam, medical decision making, and the department course for this patient. I have also personally directed, reviewed, and agree with the discharge instructions and disposition. Decision To Admit - Pt Status Changed To: Hospital Disposition Of: Inpatient - Admit Certification Admit to Inpatient:: After my assessment, the patient will require hospitalization for at least two midnights. This is because of the severity of symptoms shown, intensity of services needed, and/or the medical risk in this patient being treated as an outpatient. - InPatient: Physician Admission Certification: I certify that this patient requires 2 or more midnights of care for the following reason:: Chest Pain. Alcohol Abuse - . Bed Request Type: Telemetry Admitting Physician: Dennys Vasquez Patient Diagnosis: Chest pain, Alcohol dependence
[2018-04-21 16:56] LABS: BASO # 0.1 K/uL (0.0-0.2); BASO % 1.2 % (0.0-2.0); EOS # 0.1 K/uL (0.0-0.7); EOS % 1.2 % (0.0-4.0); HEMOGLOBIN 9.1 g/dL (12.0-18.0); LYMPH # 1.8 K/uL (1.0-4.3); LYMPH % 23.7 % (20.0-40.0); MEAN CELL VOLUME 76.8 fL (80.0-94.0); MEAN CORPUSCULAR HGB CONC 31.3 g/dL (33.0-37.0); MEAN PLATELET VOLUME 7.9 fL (7.2-11.7); MONO # 0.6 K/uL (0.0-0.8); NEUT # 5.1 K/uL (1.8-7.0); NEUT % 65.9 % (50.0-75.0); RBC 3.78 Mil/uL (4.40-5.90); RED CELL DISTRIBUTION WIDTH 16.7 % (11.5-14.5); WHITE BLOOD COUNT 7.8 K/uL (4.8-10.8)
[2018-04-21 17:16] LABS: ALBUMIN 3.4 g/dL (3.5-5.0); ALT/SGPT 24 U/L (21-72); AST/SGOT 49 U/L (17-59); BLOOD UREA NITROGEN 6 mg/dL (9-20); GFR AFRICAN-AMERICAN > 60; GFR NON-AFRICAN AMERICAN > 60; LIPASE 333 U/L (23-300)
[2018-04-21 17:24] LABS: CK-MB 3.78 ng/mL (0.0-3.38)
[2018-04-21 17:31] LABS: URINE BILIRUBIN NEGATIVE (NEGATIVE); URINE BLOOD NEGATIVE (NEGATIVE); URINE CLARITY Clear (Clear); URINE COLOR Straw (YELLOW); URINE GLUCOSE (UA) NORMAL (Normal); URINE LEUKOCYTE ESTERASE NEG Leu/uL (Negative); URINE PROTEIN NEGATIVE (NEGATIVE); URINE UROBILINOGEN NORMAL mg/dL (0.2-1.0)
--- NOTE | 2018-04-22 08:35 | CP.PCM.HP ---
History of Present Illness - History of Present Illness History of Present Illness: History Of Present Illness 62-year-old male with a PMHx of COPD, hypertension, and peripheral vascular disease, sent in by Dr. Dennys Vasquez for complaints of chest pain and alcohol withdrawal. PMHx is significant for CABG and stent placement performed by Dr. Erwin. Patient states he has had chest pain for a long time. He admits to drinking and smoking daily. Patient states that Dr. Erwin sent him to the ED for admission. Otherwise he denies any SOB, palpitations, diaphoresis, nausea, vomiting, dizziness, or other complaints. Present on Admission - Present on Admission Any Indicators Present on Admission: No Past Patient History - Infectious Disease Hx of Infectious Diseases: None - Past Medical History & Family History Past Medical History?: Yes - Past Social History Smoking Status: Heavy Smoker > 10 Cigarettes Daily - CARDIAC Hx Cardiac Disorders: Yes Hx Cardia Arrhythmia: Yes Hx Hypercholesterolemia: Yes Hx Hypertension: Yes - PULMONARY Hx Respiratory Disorders: Yes Hx Asthma: Yes Hx Bronchitis: Yes Hx Chronic Obstructive Pulmonary Disease (COPD): Yes Hx Emphysema: Yes Hx Pneumonia: Yes Hx Pulmonary Embolism: No Hx Sleep Apnea: Yes - NEUROLOGICAL Hx Neurological Disorder: Yes Hx Migraine: Yes Hx Seizures: Yes (ETOH related) - HEENT Hx HEENT Problems: No - RENAL Hx Chronic Kidney Disease: No - ENDOCRINE/METABOLIC Hx Hyperthyroidism: No Hx Hypothyroidism: No - HEMATOLOGICAL/ONCOLOGICAL Hx Anemia: No Hx Human Immunodeficiency Virus (HIV): No Hx Sickle Cell Disease: No - INTEGUMENTARY Hx Dermatological Problems: No - MUSCULOSKELETAL/RHEUMATOLOGICAL Hx Musculoskeletal Disorders: Yes Hx Arthritis: Yes Hx Falls: Yes Hx Fractures: No - GASTROINTESTINAL Hx Gastrointestinal Disorders: Yes Hx Diverticulitis: No Hx Gastritis: Yes Hx Pancreatitis: Yes - GENITOURINARY/GYNECOLOGICAL Hx Genitourinary Disorders: No Hx Sexually Transmitted Disorders: No - PSYCHIATRIC Hx Psychophysiologic Disorder: Yes Hx Anxiety: Yes Hx Bipolar Disorder: Yes Hx Depression: Yes Hx Substance Use: No - SURGICAL HISTORY Hx Surgeries: Yes Hx Coronary Artery Bypass Graft: Yes ((quadruple bypass) 2010) Hx Coronary Stent: Yes - ANESTHESIA Hx Anesthesia: Yes Hx Anesthesia Reactions: No Hx Malignant Hyperthermia: No Has any member of the family had a problem w/ anesthesia?: No Meds Allergies/Adverse Reactions: Allergies Allergy/AdvReac Type Severity Reaction Status Date / Time No Known Allergies Allergy Verified 04/21/18 16:35 Results - Vital Signs Recent Vital Signs: Last Vital Signs Temp 98 F 04/22/18 06:00 Pulse 77 04/22/18 04:00 Resp 17 04/22/18 04:00 BP 156/72 H 04/22/18 03:49 Pulse Ox 100 04/22/18 04:00 - Labs Result Diagrams: 04/25/18 06:10 04/25/18 06:12 Labs: Laboratory Results - last 24 hr 04/21/18 04/21/18 04/21/18 16:51 16:51 17:19 WBC 7.8 RBC 3.78 L Hgb 9.1 L D Hct 29.0 L MCV 76.8 L MCH 24.0 L MCHC 31.3 L RDW 16.7 H Plt Count 338 D MPV 7.9 Neut % (Auto) 65.9 Lymph % (Auto) 23.7 [place] % (Auto) 8.0 Eos % (Auto) 1.2 Baso % (Auto) 1.2 Neut # (Auto) 5.1 Lymph # (Auto) 1.8 Nash # (Auto) 0.6 Eos # (Auto) 0.1 Baso # (Auto) 0.1 Sodium 143 Potassium 3.8 Chloride 106 Carbon Dioxide 26 Anion Gap 16 BUN 6 L Creatinine 0.9 Est GFR ( Amer) > 60 Est GFR (Non-Af Amer) > 60 Random Glucose 88 Calcium 8.0 L Total Bilirubin 0.5 AST 49 ALT 24 Alkaline Phosphatase 72 CK-MB (Mass) 3.78 H Troponin I 0.0180 Total Protein 6.9 Albumin 3.4 L Globulin 3.5 Albumin/Globulin Ratio 1.0 Lipase 333 H Urine Color Straw Urine Clarity Clear Urine pH 7.0 Ur Specific [place] 1.002 L Urine Protein Negative Urine Glucose (UA) Normal Urine Ketones Negative Urine Blood Negative Urine Nitrate Negative Urine Bilirubin Negative Urine Urobilinogen Normal Ur Leukocyte Esterase Neg Alcohol, Quantitative 235 H 04/21/18 23:52 WBC RBC Hgb Hct MCV MCH MCHC RDW Plt Count MPV Neut % (Auto) Lymph % (Auto) Nash % (Auto) Eos % (Auto) Baso % (Auto) Neut # (Auto) Lymph # (Auto) Nash # (Auto) Eos # (Auto) Baso # (Auto) Sodium Potassium Chloride Carbon Dioxide Anion Gap BUN Creatinine Est GFR ( Amer) Est GFR (Non-Af Amer) Random Glucose Calcium Total Bilirubin AST ALT Alkaline Phosphatase CK-MB (Mass) Troponin I 0.0170 Total Protein Albumin Globulin Albumin/Globulin Ratio Lipase Urine Color Urine Clarity Urine pH Ur Specific [place] Urine Protein Urine Glucose (UA) Urine Ketones Urine Blood Urine Nitrate Urine Bilirubin Urine Urobilinogen Ur Leukocyte Esterase Alcohol, Quantitative
[2018-04-22] MEDS: Multivitamin With Minerals Tab PO SCH (12:04)
[2018-04-22] MEDS: Pantoprazole 40 mg EC Tab PO SCH (12:04)
[2018-04-22] MEDS: Enoxaparin 40 mg Syringe SC SCH (12:05)
[2018-04-22] MEDS: Metoprolol Succinate 25 mg XL Tab PO SCH (12:05)
--- NOTE | 2018-04-22 12:34 | RAD ---
HISTORY: SOB COMPARISON: 01/20/2018 TECHNIQUE: Chest PA and lateral FINDINGS: LUNGS: Thread-like left basal discoid atelectasis/ fibrosis slightly more conspicuous currently No interval consolidation PLEURA: No significant pleural effusion identified. No pneumothorax apparent. CARDIOVASCULAR: Cardiomegaly. Central pulmonary vasculature - within normal limits. Midline sternotomy. Coronary artery bypass clips. OSSEOUS STRUCTURES: Midline sternotomy. Mild thoracic spondylosis VISUALIZED UPPER ABDOMEN: Normal. OTHER FINDINGS: None. IMPRESSION: No active disease.
[2018-04-22 14:18] LABS: IRON 124 ug/dL (49-181)
[2018-04-22 14:28] LABS: % IRON SATURATION 27 (20-55); TOTAL IRON BINDING CAPACITY 455 ug/dL (250-450)
[2018-04-23 06:24] LABS: MEAN CELL VOLUME 77.2 fL (80.0-94.0); MEAN CORPUSCULAR HEMOGLOBIN 24.1 pg (27.0-31.0); MEAN CORPUSCULAR HGB CONC 31.3 g/dL (33.0-37.0); MEAN PLATELET VOLUME 8.5 fL (7.2-11.7); RBC 3.74 Mil/uL (4.40-5.90); RED CELL DISTRIBUTION WIDTH 16.2 % (11.5-14.5)
[2018-04-23 06:56] LABS: ALB/GLOB RATIO 0.9 (1.0-2.1); ALBUMIN 2.8 g/dL (3.5-5.0); ALT/SGPT 15 U/L (21-72); AST/SGOT 24 U/L (17-59); BLOOD UREA NITROGEN 9 mg/dL (9-20); CALCIUM 8.1 mg/dl (8.6-10.4); GFR AFRICAN-AMERICAN > 60; GFR NON-AFRICAN AMERICAN > 60
[2018-04-23] MEDS: Multivitamin With Minerals Tab PO SCH (09:18)
[2018-04-23] MEDS: Enoxaparin 40 mg Syringe SC SCH (09:18)
[2018-04-23] MEDS: Metoprolol Succinate 25 mg XL Tab PO SCH (09:18)
[2018-04-23] MEDS: Pantoprazole 40 mg EC Tab PO SCH (09:18)
--- NOTE | 2018-04-23 09:36 | CP.PCM.PN ---
Subjective - Date & Time of Evaluation Date of Evaluation: 04/22/18 Time of Evaluation: 19:00 - Subjective Subjective: pt is seen and evaluated at bedside, is on medical management Objective - Vital Signs/Intake and Output Vital Signs (last 24 hours): Temp Pulse Resp BP Pulse Ox 98.2 F 71 21 152/80 H 100 04/23/18 08:00 04/23/18 08:00 04/23/18 08:00 04/23/18 06:50 04/23/18 08:00 Intake and Output: 04/23/18 04/23/18 06:59 18:59 Intake Total 100 Output Total 550 Balance -450 - Medications Medications: Current Medications Aspirin (Ecotrin) 81 mg PO DAILY [facility] Last Admin: 04/23/18 09:19 Dose: 81 mg Chlordiazepoxide (Librium) 50 mg PO Q4 [facility] Last Admin: 04/23/18 08:23 Dose: 50 mg Enoxaparin Sodium (Lovenox) 40 mg SC DAILY [facility] Last Admin: 04/23/18 09:18 Dose: 40 mg Ferrous Sulfate (Feosol) 325 mg PO TID [facility] Last Admin: 04/23/18 09:19 Dose: 325 mg Folic Acid (Folic Acid) 1 mg PO DAILY [facility] Last Admin: 04/23/18 09:19 Dose: 1 mg Gabapentin (Neurontin) 100 mg PO TID [facility] Last Admin: 04/23/18 09:19 Dose: 100 mg Losartan Potassium (Cozaar) 50 mg PO DAILY [facility] Last Admin: 04/22/18 12:05 Dose: 50 mg Metoprolol Succinate (Toprol Xl) 25 mg PO DAILY [facility] Last Admin: 04/23/18 09:18 Dose: 25 mg Multivitamins/Minerals (Therapeutic-M Tab) 1 tab PO DAILY [facility] Last Admin: 04/23/18 09:18 Dose: 1 tab Nicotine (Nicoderm Cq) 1 patch TD DAILY [facility] Last Admin: 04/23/18 09:18 Dose: 1 patch Pantoprazole Sodium (Protonix Ec Tab) 40 mg PO DAILY [facility] Last Admin: 04/23/18 09:18 Dose: 40 mg Tamsulosin HCl (Flomax) 0.4 mg PO HS [facility] Last Admin: 04/22/18 21:00 Dose: 0.4 mg Thiamine HCl (Vitamin B1 Tab) 100 mg PO DAILY [facility] Last Admin: 04/23/18 09:18 Dose: 100 mg - Labs Labs: 04/23/18 06:12 04/23/18 06:14
[2018-04-23] MEDS ORDERED: Potassium Chloride 20 mEq ER Tab PO ONE (11:00)
[2018-04-23] MEDS: Mupirocin 2% Ointment (NASAL) NAS SCH ×2 (11:47→17:00)
--- NOTE | 2018-04-23 12:46 | PCM.PSYCH ---
Initial Psychiatric Evaluation - Initial Psychiatric Evaluation Type of Admission: Voluntary Legal Status: Capacity History of Present Illness and Precipitating Events: 62-year-old male with a PMHx of COPD, hypertension, and peripheral vascular disease, sent in by Dr. Dennys Vasquez for complaints of chest pain and alcohol withdrawal. PMHx is significant for CABG and stent placement performed by Dr. Erwin. Patient states he has had chest pain for a long time. He admits to drinking and smoking daily. Patient states that Dr. Erwin sent him to the ED for admission. Otherwise he denies any SOB, palpitations, diaphoresis, nausea, vomiting, dizziness, or other complaints. Current Medications: Active Medications Generic Name Dose Route Start Last Admin Trade Name Freq PRN Reason Stop Dose Admin Aspirin 81 mg 04/22/18 11:30 04/23/18 09:19 Ecotrin PO 81 mg DAILY [facility] Administration Chlordiazepoxide 50 mg 04/22/18 00:28 04/23/18 11:47 Librium PO 50 mg Q4 [facility] Administration Enoxaparin Sodium 40 mg 04/22/18 11:30 04/23/18 09:18 Lovenox SC 40 mg DAILY [facility] Administration Ferrous Sulfate 325 mg 04/22/18 14:00 04/23/18 09:19 Feosol PO 325 mg TID [facility] Administration Folic Acid 1 mg 04/22/18 11:30 04/23/18 09:19 Folic Acid PO 1 mg DAILY [facility] Administration Gabapentin 100 mg 04/22/18 14:00 04/23/18 09:19 Neurontin PO 100 mg TID [facility] Administration Losartan Potassium 50 mg 04/22/18 11:30 04/22/18 12:05 Cozaar PO 50 mg DAILY [facility] Administration Metoprolol Succinate 25 mg 04/22/18 11:30 04/23/18 09:18 Toprol Xl PO 25 mg DAILY [facility] Administration Multivitamins/Minerals 1 tab 04/22/18 11:30 04/23/18 09:18 Therapeutic-M Tab PO 1 tab DAILY [facility] Administration Mupirocin 0.25 gm 04/23/18 11:30 04/23/18 11:47 Bactroban 2% Nasal NINA 04/29/18 11:31 0.25 gm BID [facility] Administration Nicotine 1 patch 04/22/18 10:00 04/23/18 09:18 Nicoderm Cq TD 1 patch DAILY [facility] Administration Pantoprazole Sodium 40 mg 04/22/18 11:30 04/23/18 09:18 Protonix Ec Tab PO 40 mg DAILY [facility] Administration Tamsulosin HCl 0.4 mg 04/22/18 22:00 04/22/18 21:00 Flomax PO 0.4 mg HS [facility] Administration Thiamine HCl 100 mg 04/22/18 11:30 04/23/18 09:18 Vitamin B1 Tab PO 100 mg DAILY [facility] Administration Past Psychiatric History - Past Psychiatric History Previous Treatment History: Inpatient Pertinent Medical Hx (Current Medical&Sleep Prob, Allergies): Allergies Allergy/AdvReac Type Severity Reaction Status Date / Time No Known Allergies Allergy Verified 04/21/18 16:35 Topiramate [Topamax] 50 mg PO BID #60 tab 11/20/17 Pantoprazole Sodium [Protonix] 40 mg PO DAILY 11/29/17 Folic Acid 1 mg PO DAILY tab 12/03/17 Gabapentin [Neurontin] 100 mg PO TID #90 cap 12/03/17 Losartan [Cozaar] 50 mg PO DAILY #30 tab 12/03/17 Tamsulosin HCl [Flomax] 0.4 mg PO HS #30 cap.er.24h 12/03/17 Thiamine [Vitamin B1 Tab] 100 mg PO DAILY tab 12/03/17 Aspirin [Ecotrin] 81 mg PO DAILY tabec 01/25/18 Metoprolol Succinate [Toprol XL] 25 mg PO DAILY tab 01/25/18 Multimineral/Multivitamin [Therapeutic-M Tab] 1 tab PO DAILY tab 02/09/18 Albuterol/Ipratropium [Duoneb 3 mg/0.5 mg (3 ml) UD] 3 ml INH RQ6 PRN 02/13/18 Escitalopram [Lexapro] 10 mg PO DAILY #30 tab 02/25/18 Review of Systems - Review of Systems All systems: reviewed and no additional remarkable complaints except - Psychiatric Psychiatric: Anxiety, Irritability Mental Status Examination - Personal Presentation Personal Presentation: Looks stated age - Affect Affect: Constricted, Depressed - Motor Activity Motor Activity: Calm - Reliability in Providing Information Reliability in Providing Information: Fair - Speech Speech: Organized - Mood Mood: Depressed, Anxious - Formal Thought Process Formal Thought Process: No Impairment - Obsessions/Compulsions Obsessions: No Compulsions: No - Cognitive Functions Orientation: Person, Place, Situation, Time Sensorium: Alert Attention/Concentration: Attentive Abstract Thinking: [place] Estimate of Intelligence: Below average Judgement: Imparied, as evidence by: Poor judgement, Imparied, as evidence by: Lack of insight into illness - Risk Risk: Diminished functioning
--- NOTE | 2018-04-24 00:30 | CP.PCM.PN ---
Subjective - Date & Time of Evaluation Date of Evaluation: 04/23/18 Time of Evaluation: 20:00 - Subjective Subjective: Pt seen and examined at bedside Objective - Vital Signs/Intake and Output Vital Signs (last 24 hours): Temp Pulse Resp BP Pulse Ox 99.7 F H 73 23 129/53 L 98 04/23/18 20:00 04/23/18 22:00 04/23/18 22:00 04/23/18 22:50 04/23/18 22:00 Intake and Output: 04/23/18 04/24/18 18:59 06:59 Intake Total 1280 Output Total 1100 Balance 180 - Medications Medications: Current Medications Aspirin (Ecotrin) 81 mg PO DAILY [facility] Last Admin: 04/23/18 09:19 Dose: 81 mg Chlordiazepoxide (Librium) 50 mg PO Q4 [facility] Last Admin: 04/23/18 20:22 Dose: 50 mg Enoxaparin Sodium (Lovenox) 40 mg SC DAILY [facility] Last Admin: 04/23/18 09:18 Dose: 40 mg Ferrous Sulfate (Feosol) 325 mg PO TID [facility] Last Admin: 04/23/18 17:00 Dose: 325 mg Folic Acid (Folic Acid) 1 mg PO DAILY [facility] Last Admin: 04/23/18 09:19 Dose: 1 mg Gabapentin (Neurontin) 100 mg PO TID [facility] Last Admin: 04/23/18 17:00 Dose: 100 mg Losartan Potassium (Cozaar) 50 mg PO DAILY [facility] Last Admin: 04/23/18 10:50 Dose: Not Given Metoprolol Succinate (Toprol Xl) 25 mg PO DAILY [facility] Last Admin: 04/23/18 09:18 Dose: 25 mg Multivitamins/Minerals (Therapeutic-M Tab) 1 tab PO DAILY [facility] Last Admin: 04/23/18 09:18 Dose: 1 tab Mupirocin (Bactroban 2% Nasal) 0.25 gm NINA BID [facility] Stop: 04/29/18 11:31 Last Admin: 04/23/18 17:00 Dose: 0.25 gm Nicotine (Nicoderm Cq) 1 patch TD DAILY [facility] Last Admin: 04/23/18 09:18 Dose: 1 patch Pantoprazole Sodium (Protonix Ec Tab) 40 mg PO DAILY [facility] Last Admin: 04/23/18 09:18 Dose: 40 mg Tamsulosin HCl (Flomax) 0.4 mg PO HS [facility] Last Admin: 04/23/18 22:10 Dose: 0.4 mg Thiamine HCl (Vitamin B1 Tab) 100 mg PO DAILY [facility] Last Admin: 04/23/18 09:18 Dose: 100 mg - Labs Labs: 04/23/18 06:12 04/23/18 06:14
[2018-04-24] MEDS: Pantoprazole 40 mg EC Tab PO SCH (09:38)
[2018-04-24] MEDS: Metoprolol Succinate 25 mg XL Tab PO SCH (09:40)
[2018-04-24] MEDS: Enoxaparin 40 mg Syringe SC SCH (09:41)
[2018-04-24] MEDS: Mupirocin 2% Ointment (NASAL) NAS SCH ×2 (09:41→17:27)
[2018-04-24] MEDS: Multivitamin With Minerals Tab PO SCH (10:03)
[2018-04-25 06:18] LABS: MEAN CELL VOLUME 78.5 fL (80.0-94.0); MEAN CORPUSCULAR HEMOGLOBIN 24.9 pg (27.0-31.0); MEAN CORPUSCULAR HGB CONC 31.8 g/dL (33.0-37.0); MEAN PLATELET VOLUME 8.7 fL (7.2-11.7); RBC 3.6 Mil/uL (4.40-5.90); RED CELL DISTRIBUTION WIDTH 16.4 % (11.5-14.5); WHITE BLOOD COUNT 8.1 K/uL (4.8-10.8)
[2018-04-25 06:39] LABS: ALB/GLOB RATIO 0.9 (1.0-2.1); ALT/SGPT 21 U/L (21-72); AST/SGOT 23 U/L (17-59); BLOOD UREA NITROGEN 6 mg/dL (9-20); CALCIUM 8.6 mg/dl (8.6-10.4); GFR AFRICAN-AMERICAN > 60; GFR NON-AFRICAN AMERICAN > 60
[2018-04-25] MEDS: Multivitamin With Minerals Tab PO SCH (09:44)
[2018-04-25] MEDS: Mupirocin 2% Ointment (NASAL) NAS SCH ×2 (09:44→17:36)
[2018-04-25] MEDS: Enoxaparin 40 mg Syringe SC SCH (09:44)
[2018-04-25] MEDS: Pantoprazole 40 mg EC Tab PO SCH (09:44)
[2018-04-25] MEDS: Metoprolol Succinate 25 mg XL Tab PO SCH (09:45)
[2018-04-25] MEDS ORDERED: Potassium Chloride 20 mEq/15 ml LIQ UD PO ONE (13:00)
[2018-04-25] MEDS: Ferric Sodium Gluconat Complex 62.5 mg/5 ml Vial IVPB SCH (13:04)
--- NOTE | 2018-04-25 17:35 | CP.PCM.PN ---
Subjective - Date & Time of Evaluation Date of Evaluation: 04/24/18 Time of Evaluation: 19:00 - Subjective Subjective: Pt seen and examined Objective - Vital Signs/Intake and Output Vital Signs (last 24 hours): Temp Pulse Resp BP Pulse Ox 99 F 76 20 144/75 96 04/25/18 17:00 04/25/18 17:00 04/25/18 17:00 04/25/18 17:00 04/25/18 17:00 Intake and Output: 04/25/18 04/25/18 06:59 18:59 Intake Total 1100 Output Total 1500 Balance -400 - Medications Medications: Current Medications Aspirin (Ecotrin) 81 mg PO DAILY [facility] Last Admin: 04/25/18 09:43 Dose: 81 mg Chlordiazepoxide (Librium) 25 mg PO Q6H [facility] Last Admin: 04/25/18 11:30 Dose: Not Given Enoxaparin Sodium (Lovenox) 40 mg SC DAILY [facility] Last Admin: 04/25/18 09:44 Dose: 40 mg Ferric Sodium Gluconate Complex (Ferrlecit) 125 mg IVPB Q24H [facility] Stop: 05/03/18 13:01 Last Admin: 04/25/18 13:04 Dose: 125 mg Folic Acid (Folic Acid) 1 mg PO DAILY [facility] Last Admin: 04/25/18 09:44 Dose: 1 mg Gabapentin (Neurontin) 100 mg PO TID [facility] Last Admin: 04/25/18 13:03 Dose: 100 mg Metoprolol Succinate (Toprol Xl) 25 mg PO DAILY [facility] Last Admin: 04/25/18 09:45 Dose: 25 mg Multivitamins/Minerals (Therapeutic-M Tab) 1 tab PO DAILY [facility] Last Admin: 04/25/18 09:44 Dose: 1 tab Mupirocin (Bactroban 2% Nasal) 0.25 gm NINA BID [facility] Stop: 04/29/18 11:31 Last Admin: 04/25/18 09:44 Dose: 0.25 gm Nicotine (Nicoderm Cq) 1 patch TD DAILY [facility] Last Admin: 04/25/18 09:45 Dose: 1 patch Pantoprazole Sodium (Protonix Ec Tab) 40 mg PO DAILY [facility] Last Admin: 04/25/18 09:44 Dose: 40 mg Tamsulosin HCl (Flomax) 0.4 mg PO HS [facility] Last Admin: 04/24/18 22:43 Dose: 0.4 mg Thiamine HCl (Vitamin B1 Tab) 100 mg PO DAILY [facility] Last Admin: 04/25/18 09:44 Dose: 100 mg - Labs Labs: 04/25/18 06:10 04/25/18 06:12
--- NOTE | 2018-04-25 17:35 | CP.PCM.PN ---
Subjective - Date & Time of Evaluation Date of Evaluation: 04/25/18 Time of Evaluation: 19:45 - Subjective Subjective: Pt seen and examined Objective - Vital Signs/Intake and Output Vital Signs (last 24 hours): Temp Pulse Resp BP Pulse Ox 99 F 76 20 144/75 96 04/25/18 17:00 04/25/18 17:00 04/25/18 17:00 04/25/18 17:00 04/25/18 17:00 Intake and Output: 04/25/18 04/25/18 06:59 18:59 Intake Total 1100 Output Total 1500 Balance -400 - Medications Medications: Current Medications Aspirin (Ecotrin) 81 mg PO DAILY [facility] Last Admin: 04/25/18 09:43 Dose: 81 mg Chlordiazepoxide (Librium) 25 mg PO Q6H [facility] Last Admin: 04/25/18 11:30 Dose: Not Given Enoxaparin Sodium (Lovenox) 40 mg SC DAILY [facility] Last Admin: 04/25/18 09:44 Dose: 40 mg Ferric Sodium Gluconate Complex (Ferrlecit) 125 mg IVPB Q24H [facility] Stop: 05/03/18 13:01 Last Admin: 04/25/18 13:04 Dose: 125 mg Folic Acid (Folic Acid) 1 mg PO DAILY [facility] Last Admin: 04/25/18 09:44 Dose: 1 mg Gabapentin (Neurontin) 100 mg PO TID [facility] Last Admin: 04/25/18 13:03 Dose: 100 mg Metoprolol Succinate (Toprol Xl) 25 mg PO DAILY [facility] Last Admin: 04/25/18 09:45 Dose: 25 mg Multivitamins/Minerals (Therapeutic-M Tab) 1 tab PO DAILY [facility] Last Admin: 04/25/18 09:44 Dose: 1 tab Mupirocin (Bactroban 2% Nasal) 0.25 gm NINA BID [facility] Stop: 04/29/18 11:31 Last Admin: 04/25/18 09:44 Dose: 0.25 gm Nicotine (Nicoderm Cq) 1 patch TD DAILY [facility] Last Admin: 04/25/18 09:45 Dose: 1 patch Pantoprazole Sodium (Protonix Ec Tab) 40 mg PO DAILY [facility] Last Admin: 04/25/18 09:44 Dose: 40 mg Tamsulosin HCl (Flomax) 0.4 mg PO HS [facility] Last Admin: 04/24/18 22:43 Dose: 0.4 mg Thiamine HCl (Vitamin B1 Tab) 100 mg PO DAILY [facility] Last Admin: 04/25/18 09:44 Dose: 100 mg - Labs Labs: 04/25/18 06:10 04/25/18 06:12
[2018-04-26] MEDS: Multivitamin With Minerals Tab PO SCH (09:17)
[2018-04-26] MEDS: Mupirocin 2% Ointment (NASAL) NAS SCH ×2 (09:17→17:03)
[2018-04-26] MEDS: Metoprolol Succinate 25 mg XL Tab PO SCH (09:18)
[2018-04-26] MEDS: Enoxaparin 40 mg Syringe SC SCH (09:18)
[2018-04-26] MEDS: Pantoprazole 40 mg EC Tab PO SCH (09:18)
[2018-04-26] MEDS: Ferric Sodium Gluconat Complex 62.5 mg/5 ml Vial IVPB SCH (13:15)
--- NOTE | 2018-04-26 16:10 | CARD ---
APPROVED REPORT EKG Measurement Heart [id number] <Conclusion> Normal sinus rhythm ST & T wave abnormality, consider inferolateral ischemia Abnormal ECG
[2018-04-26] MEDS ORDERED: Potassium Chloride 20 mEq/15 ml LIQ UD PO STA (18:12)
[2018-04-26 18:31] VITALS: RESP 20
--- NOTE | 2018-04-26 23:44 | CP.PCM.PN ---
Subjective - Date & Time of Evaluation Date of Evaluation: 04/26/18 Time of Evaluation: 19:00 - Subjective Subjective: Pt seen and examined, is out of ICU, on librium, less shaking, c/o back pain, no urinary complains Objective - Vital Signs/Intake and Output Vital Signs (last 24 hours): Temp Pulse Resp BP Pulse Ox 98.0 F 67 20 123/56 L 99 04/26/18 17:00 04/26/18 17:00 04/26/18 17:00 04/26/18 17:00 04/26/18 17:00 Intake and Output: 04/26/18 04/27/18 18:59 06:59 Intake Total 1200 500 Output Total 900 Balance 300 500 - Medications Medications: Current Medications Acetaminophen (Tylenol 325mg Tab) 650 mg PO Q6 PRN PRN Reason: Headache Last Admin: 04/26/18 09:20 Dose: 650 mg Acetaminophen (Tylenol 325mg Tab) 650 mg PO Q6 PRN PRN Reason: Pain, moderate (4-7) Last Admin: 04/26/18 18:35 Dose: 650 mg Aspirin (Ecotrin) 81 mg PO DAILY [facility] Last Admin: 04/26/18 09:17 Dose: 81 mg Chlordiazepoxide (Librium) 25 mg PO Q6H [facility] Last Admin: 04/26/18 17:04 Dose: 25 mg Enoxaparin Sodium (Lovenox) 40 mg SC DAILY [facility] Last Admin: 04/26/18 09:18 Dose: 40 mg Ferric Sodium Gluconate Complex (Ferrlecit) 125 mg IVPB Q24H [facility] Stop: 05/03/18 13:01 Last Admin: 04/26/18 13:15 Dose: 125 mg Folic Acid (Folic Acid) 1 mg PO DAILY [facility] Last Admin: 04/26/18 09:17 Dose: 1 mg Gabapentin (Neurontin) 100 mg PO TID [facility] Last Admin: 04/26/18 17:04 Dose: 100 mg Metoprolol Succinate (Toprol Xl) 25 mg PO DAILY [facility] Last Admin: 04/26/18 09:18 Dose: 25 mg Multivitamins/Minerals (Therapeutic-M Tab) 1 tab PO DAILY [facility] Last Admin: 04/26/18 09:17 Dose: 1 tab Mupirocin (Bactroban 2% Nasal) 0.25 gm NINA BID [facility] Stop: 04/29/18 11:31 Last Admin: 04/26/18 17:03 Dose: 0.25 gm Nicotine (Nicoderm Cq) 1 patch TD DAILY [facility] Last Admin: 04/26/18 09:18 Dose: 1 patch Pantoprazole Sodium (Protonix Ec Tab) 40 mg PO DAILY [facility] Last Admin: 04/26/18 09:18 Dose: 40 mg Tamsulosin HCl (Flomax) 0.4 mg PO HS [facility] Last Admin: 04/26/18 22:05 Dose: 0.4 mg Thiamine HCl (Vitamin B1 Tab) 100 mg PO DAILY [facility] Last Admin: 04/26/18 09:17 Dose: 100 mg - Labs Labs: 04/25/18 06:10 04/25/18 06:12 - Constitutional Appears: No Acute Distress - Head Exam Head Exam: ATRAUMATIC, NORMAL INSPECTION, NORMOCEPHALIC - Eye Exam Eye Exam: EOMI, Normal appearance, PERRL Pupil Exam: NORMAL ACCOMODATION, PERRL - Respiratory Exam Respiratory Exam: Clear to Ausculation Bilateral, NORMAL BREATHING PATTERN - Cardiovascular Exam Cardiovascular Exam: REGULAR RHYTHM, +S1, +S2. absent: Murmur - GI/Abdominal Exam GI & Abdominal Exam: Soft, Normal Bowel Sounds. absent: Tenderness - Rectal Exam Rectal Exam: Deferred Assessment and Plan (1) Alcohol dependence Status: Chronic (2) Alcohol abuse with uncomplicated intoxication Status: Acute (3) Alcohol withdrawal Status: Acute (4) Hypotension Status: Acute (5) Diabetes Status: Chronic (6) Hypertension Status: Chronic
[2018-04-27] MEDS: Pantoprazole 40 mg EC Tab PO SCH (09:32)
[2018-04-27] MEDS: Enoxaparin 40 mg Syringe SC SCH (09:32)
[2018-04-27] MEDS: Metoprolol Succinate 25 mg XL Tab PO SCH (09:32)
[2018-04-27] MEDS: Multivitamin With Minerals Tab PO SCH (09:32)
[2018-04-27] MEDS: Mupirocin 2% Ointment (NASAL) NAS SCH ×2 (09:33→17:32)
[2018-04-27] MEDS: Ferric Sodium Gluconat Complex 62.5 mg/5 ml Vial IVPB SCH (13:15)
--- NOTE | 2018-04-28 09:07 | CP.PCM.PN ---
Subjective - Date & Time of Evaluation Date of Evaluation: 04/27/18 Time of Evaluation: 20:00 - Subjective Subjective: Pt seen and examined at bedside, is improving Objective - Vital Signs/Intake and Output Vital Signs (last 24 hours): Temp Pulse Resp BP Pulse Ox 98.6 F 72 20 125/75 96 04/28/18 07:52 04/28/18 07:52 04/28/18 07:52 04/28/18 07:52 04/28/18 07:52 Intake and Output: 04/28/18 04/28/18 06:59 18:59 Intake Total 750 Balance 750 - Medications Medications: Current Medications Acetaminophen (Tylenol 325mg Tab) 650 mg PO Q6 PRN PRN Reason: Headache Last Admin: 04/26/18 09:20 Dose: 650 mg Acetaminophen (Tylenol 325mg Tab) 650 mg PO Q6 PRN PRN Reason: Pain, moderate (4-7) Last Admin: 04/26/18 18:35 Dose: 650 mg Aspirin (Ecotrin) 81 mg PO DAILY [facility] Last Admin: 04/27/18 09:32 Dose: 81 mg Chlordiazepoxide (Librium) 25 mg PO Q6H [facility] Last Admin: 04/28/18 05:29 Dose: 25 mg Enoxaparin Sodium (Lovenox) 40 mg SC DAILY [facility] Last Admin: 04/27/18 09:32 Dose: 40 mg Ferric Sodium Gluconate Complex (Ferrlecit) 125 mg IVPB Q24H [facility] Stop: 05/03/18 13:01 Last Admin: 04/27/18 13:15 Dose: 125 mg Folic Acid (Folic Acid) 1 mg PO DAILY [facility] Last Admin: 04/27/18 09:32 Dose: 1 mg Gabapentin (Neurontin) 100 mg PO TID [facility] Last Admin: 04/27/18 17:31 Dose: 100 mg Metoprolol Succinate (Toprol Xl) 25 mg PO DAILY [facility] Last Admin: 04/27/18 09:32 Dose: 25 mg Multivitamins/Minerals (Therapeutic-M Tab) 1 tab PO DAILY [facility] Last Admin: 04/27/18 09:32 Dose: 1 tab Mupirocin (Bactroban 2% Nasal) 0.25 gm NINA BID [facility] Stop: 04/29/18 11:31 Last Admin: 04/27/18 17:32 Dose: 0.25 gm Nicotine (Nicoderm Cq) 1 patch TD DAILY [facility] Last Admin: 04/27/18 09:33 Dose: 1 patch Pantoprazole Sodium (Protonix Ec Tab) 40 mg PO DAILY [facility] Last Admin: 04/27/18 09:32 Dose: 40 mg Tamsulosin HCl (Flomax) 0.4 mg PO HS [facility] Last Admin: 04/27/18 21:17 Dose: 0.4 mg Thiamine HCl (Vitamin B1 Tab) 100 mg PO DAILY [facility] Last Admin: 04/27/18 09:32 Dose: 100 mg - Labs Labs: 04/25/18 06:10 04/25/18 06:12 - Constitutional Appears: No Acute Distress - Head Exam Head Exam: ATRAUMATIC, NORMAL INSPECTION, NORMOCEPHALIC - Eye Exam Eye Exam: EOMI, Normal appearance, PERRL Pupil Exam: NORMAL ACCOMODATION, PERRL - Respiratory Exam Respiratory Exam: Clear to Ausculation Bilateral, NORMAL BREATHING PATTERN - Cardiovascular Exam Cardiovascular Exam: REGULAR RHYTHM, +S1, +S2. absent: Murmur - GI/Abdominal Exam GI & Abdominal Exam: Soft, Normal Bowel Sounds. absent: Tenderness - Rectal Exam Rectal Exam: Deferred Assessment and Plan (1) Alcohol dependence Status: Chronic (2) Alcohol abuse with uncomplicated intoxication Status: Acute (3) Alcohol withdrawal Status: Acute (4) Hypotension Status: Acute (5) Diabetes Status: Chronic (6) Hypertension Status: Chronic
--- NOTE | 2018-04-28 09:08 | CP.PCM.PN ---
Subjective - Date & Time of Evaluation Date of Evaluation: 04/28/18 Time of Evaluation: 19:00 - Subjective Subjective: Patient seen and examined at bedside, Denies F/C/N/V/CP/SOB Objective - Vital Signs/Intake and Output Vital Signs (last 24 hours): Temp Pulse Resp BP Pulse Ox 98.6 F 72 20 125/75 96 04/28/18 07:52 04/28/18 07:52 04/28/18 07:52 04/28/18 07:52 04/28/18 07:52 Intake and Output: 04/28/18 04/28/18 06:59 18:59 Intake Total 750 Balance 750 - Medications Medications: Current Medications Acetaminophen (Tylenol 325mg Tab) 650 mg PO Q6 PRN PRN Reason: Headache Last Admin: 04/26/18 09:20 Dose: 650 mg Acetaminophen (Tylenol 325mg Tab) 650 mg PO Q6 PRN PRN Reason: Pain, moderate (4-7) Last Admin: 04/26/18 18:35 Dose: 650 mg Aspirin (Ecotrin) 81 mg PO DAILY [facility] Last Admin: 04/27/18 09:32 Dose: 81 mg Chlordiazepoxide (Librium) 25 mg PO Q6H [facility] Last Admin: 04/28/18 05:29 Dose: 25 mg Enoxaparin Sodium (Lovenox) 40 mg SC DAILY [facility] Last Admin: 04/27/18 09:32 Dose: 40 mg Ferric Sodium Gluconate Complex (Ferrlecit) 125 mg IVPB Q24H [facility] Stop: 05/03/18 13:01 Last Admin: 04/27/18 13:15 Dose: 125 mg Folic Acid (Folic Acid) 1 mg PO DAILY [facility] Last Admin: 04/27/18 09:32 Dose: 1 mg Gabapentin (Neurontin) 100 mg PO TID [facility] Last Admin: 04/27/18 17:31 Dose: 100 mg Metoprolol Succinate (Toprol Xl) 25 mg PO DAILY [facility] Last Admin: 04/27/18 09:32 Dose: 25 mg Multivitamins/Minerals (Therapeutic-M Tab) 1 tab PO DAILY [facility] Last Admin: 04/27/18 09:32 Dose: 1 tab Mupirocin (Bactroban 2% Nasal) 0.25 gm NINA BID [facility] Stop: 04/29/18 11:31 Last Admin: 04/27/18 17:32 Dose: 0.25 gm Nicotine (Nicoderm Cq) 1 patch TD DAILY [facility] Last Admin: 04/27/18 09:33 Dose: 1 patch Pantoprazole Sodium (Protonix Ec Tab) 40 mg PO DAILY [facility] Last Admin: 04/27/18 09:32 Dose: 40 mg Tamsulosin HCl (Flomax) 0.4 mg PO HS [facility] Last Admin: 04/27/18 21:17 Dose: 0.4 mg Thiamine HCl (Vitamin B1 Tab) 100 mg PO DAILY [facility] Last Admin: 04/27/18 09:32 Dose: 100 mg - Labs Labs: 04/25/18 06:10 04/25/18 06:12 Assessment and Plan (1) Alcohol dependence Status: Chronic (2) Alcohol abuse with uncomplicated intoxication Status: Acute (3) Alcohol withdrawal Status: Acute (4) Hypotension Status: Acute (5) Diabetes Status: Chronic (6) Hypertension Status: Chronic
[2018-04-28] MEDS: Metoprolol Succinate 25 mg XL Tab PO SCH (09:47)
[2018-04-28] MEDS: Pantoprazole 40 mg EC Tab PO SCH (09:47)
[2018-04-28] MEDS: Mupirocin 2% Ointment (NASAL) NAS SCH ×2 (09:47→17:47)
[2018-04-28] MEDS: Multivitamin With Minerals Tab PO SCH (09:47)
[2018-04-28] MEDS: Enoxaparin 40 mg Syringe SC SCH (09:47)
[2018-04-28 11:39] LABS: HEMOGLOBIN 9.4 g/dL (12.0-18.0); MEAN CELL VOLUME 81.6 fL (80.0-94.0); MEAN CORPUSCULAR HEMOGLOBIN 25.6 pg (27.0-31.0); MEAN CORPUSCULAR HGB CONC 31.4 g/dL (33.0-37.0); MEAN PLATELET VOLUME 8.9 fL (7.2-11.7); RBC 3.68 Mil/uL (4.40-5.90); RED CELL DISTRIBUTION WIDTH 17.1 % (11.5-14.5); WHITE BLOOD COUNT 8.1 K/uL (4.8-10.8)
[2018-04-28] MEDS: Ferric Sodium Gluconat Complex 62.5 mg/5 ml Vial IVPB SCH (12:12)
[2018-04-28 12:18] LABS: ALB/GLOB RATIO 1.1 (1.0-2.1); ALBUMIN 3.6 g/dL (3.5-5.0); ALT/SGPT 26 U/L (21-72); AST/SGOT 36 U/L (17-59); BLOOD UREA NITROGEN 11 mg/dL (9-20); CALCIUM 8.7 mg/dl (8.6-10.4); GFR AFRICAN-AMERICAN > 60; GFR NON-AFRICAN AMERICAN > 60
[2018-04-29 09:08] VITALS: BP 127/65; PULSE 66; TEMP 98.4; O2SAT 96
[2018-04-29] MEDS: Enoxaparin 40 mg Syringe SC SCH (10:12)
[2018-04-29] MEDS: Metoprolol Succinate 25 mg XL Tab PO SCH (10:13)
[2018-04-29] MEDS: Mupirocin 2% Ointment (NASAL) NAS SCH (10:13)
[2018-04-29] MEDS: Pantoprazole 40 mg EC Tab PO SCH (10:14)
[2018-04-29] MEDS: Multivitamin With Minerals Tab PO SCH (10:14)
[2018-04-29] MEDS: Ferric Sodium Gluconat Complex 62.5 mg/5 ml Vial IVPB SCH (12:22)
--- NOTE | 2018-04-29 12:39 | CP.PCM.PN ---
Subjective - Date & Time of Evaluation Date of Evaluation: 04/29/18 Time of Evaluation: 12:39 - Subjective Subjective: PER DR. VASQUES, PT IS CLEARED FOR D/C HOME TODAY. I DISCUSSED D/C PLAN, F/U APPTS, AND MEDS WITH THE PT AND HE IS IN AGREEMENT WITH PLAN. PER PT HE HAS ALL HOME MEDS AND NEEDS NO REFILLS. TO F/U WITH DR. VASQUES IN 1 WEEK. NO FURTHER ORDERS. -FOLLOW UP WITH DR. VASQUES IN THE OFFICE WITHIN 1-2 WEEKS---CALL THE OFFICE TO MAKE YOUR APPOINTMENT. -CONTINUE HOME MEDICATIONS USUAL. -REFRAIN FROM ALCOHOL USE. -FEEL FREE TO FOLLOW UP WITH THE OUTPATIENT MENTAL HEALTH OFFICE: [address] [place] [address]; [phone]. -IF YOU HAVE ANY FURTHER QUESTIONS OR CONCERNS, CONTACT DR. VASQUES'S OFFICE. Objective - Vital Signs/Intake and Output Vital Signs (last 24 hours): Temp Pulse Resp BP Pulse Ox 98.4 F 66 20 127/65 96 04/29/18 08:00 04/29/18 08:00 04/29/18 08:00 04/29/18 08:00 04/29/18 08:00 Intake and Output: 04/29/18 04/29/18 06:59 18:59 Intake Total 325 Balance 325 - Medications Medications: Current Medications Acetaminophen (Tylenol 325mg Tab) 650 mg PO Q6 PRN PRN Reason: Headache Last Admin: 04/26/18 09:20 Dose: 650 mg Acetaminophen (Tylenol 325mg Tab) 650 mg PO Q6 PRN PRN Reason: Pain, moderate (4-7) Last Admin: 04/26/18 18:35 Dose: 650 mg Aspirin (Ecotrin) 81 mg PO DAILY [facility] Last Admin: 04/29/18 10:14 Dose: 81 mg Chlordiazepoxide (Librium) 25 mg PO Q6H [facility] Last Admin: 04/29/18 12:22 Dose: 25 mg Enoxaparin Sodium (Lovenox) 40 mg SC DAILY [facility] Last Admin: 04/29/18 10:12 Dose: 40 mg Ferric Sodium Gluconate Complex (Ferrlecit) 125 mg IVPB Q24H [facility] Stop: 05/03/18 13:01 Last Admin: 04/29/18 12:22 Dose: 125 mg Folic Acid (Folic Acid) 1 mg PO DAILY [facility] Last Admin: 04/29/18 10:13 Dose: 1 mg Gabapentin (Neurontin) 100 mg PO TID [facility] Last Admin: 04/29/18 10:14 Dose: 100 mg Metoprolol Succinate (Toprol Xl) 25 mg PO DAILY [facility] Last Admin: 04/29/18 10:13 Dose: 25 mg Multivitamins/Minerals (Therapeutic-M Tab) 1 tab PO DAILY [facility] Last Admin: 04/29/18 10:14 Dose: 1 tab Nicotine (Nicoderm Cq) 1 patch TD DAILY [facility] Last Admin: 04/29/18 10:13 Dose: 1 patch Pantoprazole Sodium (Protonix Ec Tab) 40 mg PO DAILY [facility] Last Admin: 04/29/18 10:14 Dose: 40 mg Tamsulosin HCl (Flomax) 0.4 mg PO HS [facility] Last Admin: 04/28/18 21:47 Dose: 0.4 mg Thiamine HCl (Vitamin B1 Tab) 100 mg PO DAILY [facility] Last Admin: 04/29/18 10:14 Dose: 100 mg - Labs Labs: 04/28/18 11:34 04/28/18 11:34
--- NOTE | 2018-04-29 22:49 | CP.PCM.DIS ---
Provider - Provider Date of Admission: 04/21/18 17:45 Attending physician: Dennys Vasquez MD Time Spent in preparation of Discharge (in minutes): 45 Diagnosis - Discharge Diagnosis (1) Alcohol dependence Status: Chronic (2) Alcohol abuse with uncomplicated intoxication Status: Acute (3) Alcohol withdrawal Status: Acute (4) Hypotension Status: Acute (5) Diabetes Status: Chronic (6) Hypertension Status: Chronic Priority: Low Hospital Course - Lab Results Lab Results: Micro Results 04/26/18 17:05 Naris MRSA Culture - Final MRSA NOT DETECTED 04/22/18 04:16 [facility] MRSA Culture (Admit) - Final Most Recent Lab Values WBC 8.1 K/uL (4.8-10.8) 04/28/18 11:34 RBC 3.68 Mil/uL (4.40-5.90) L 04/28/18 11:34 Hgb 9.4 g/dL (12.0-18.0) L 04/28/18 11:34 Hct 30.0 % (35.0-51.0) L 04/28/18 11:34 MCV 81.6 fL (80.0-94.0) D 04/28/18 11:34 MCH 25.6 pg (27.0-31.0) L 04/28/18 11:34 MCHC 31.4 g/dL (33.0-37.0) L 04/28/18 11:34 RDW 17.1 % (11.5-14.5) H 04/28/18 11:34 Plt Count 209 K/uL (130-400) 04/28/18 11:34 MPV 8.9 fL (7.2-11.7) 04/28/18 11:34 Neut % (Auto) 65.9 % (50.0-75.0) 04/21/18 16:51 Lymph % (Auto) 23.7 % (20.0-40.0) 04/21/18 16:51 [place] % (Auto) 8.0 % (0.0-10.0) 04/21/18 16:51 Eos % (Auto) 1.2 % (0.0-4.0) 04/21/18 16:51 Baso % (Auto) 1.2 % (0.0-2.0) 04/21/18 16:51 Neut # (Auto) 5.1 K/uL (1.8-7.0) 04/21/18 16:51 Lymph # (Auto) 1.8 K/uL (1.0-4.3) 04/21/18 16:51 [place] # (Auto) 0.6 K/uL (0.0-0.8) 04/21/18 16:51 Eos # (Auto) 0.1 K/uL (0.0-0.7) 04/21/18 16:51 Baso # (Auto) 0.1 K/uL (0.0-0.2) 04/21/18 16:51 Sodium 139 mmol/L (132-148) 04/28/18 11:34 Potassium 4.2 mmol/L (3.6-5.2) 04/28/18 11:34 Chloride 102 mmol/L (98-107) 04/28/18 11:34 Carbon Dioxide 30 mmol/L (22-30) 04/28/18 11:34 Anion Gap 11 (10-20) 04/28/18 11:34 BUN 11 mg/dL (9-20) 04/28/18 11:34 Creatinine 0.9 mg/dL (0.8-1.5) 04/28/18 11:34 Est GFR ( Amer) > 60 04/28/18 11:34 Est GFR (Non-Af Amer) > 60 04/28/18 11:34 Random Glucose 125 mg/dL (75-110) H 04/28/18 11:34 Calcium 8.7 mg/dl (8.6-10.4) 04/28/18 11:34 Iron 124 ug/dL (49-181) 04/22/18 13:48 TIBC 455 ug/dL (250-450) H 04/22/18 13:48 % Saturation 27 (20-55) 04/22/18 13:48 Total Bilirubin 0.3 mg/dL (0.2-1.3) 04/28/18 11:34 AST 36 U/L (17-59) 04/28/18 11:34 ALT 26 U/L (21-72) 04/28/18 11:34 Alkaline Phosphatase 66 U/L (38-126) 04/28/18 11:34 CK-MB (Mass) 3.78 ng/mL (0.0-3.38) H 04/21/18 16:51 Troponin I 0.0170 ng/mL (0.00-0.120) 04/21/18 23:52 Total Protein 6.9 g/dL (6.3-8.3) 04/28/18 11:34 Albumin 3.6 g/dL (3.5-5.0) 04/28/18 11:34 Globulin 3.3 gm/dL (2.2-3.9) 04/28/18 11:34 Albumin/Globulin Ratio 1.1 (1.0-2.1) 04/28/18 11:34 Lipase 333 U/L (23-300) H 04/21/18 16:51 Urine Color Straw (YELLOW) 04/21/18 17:19 Urine Clarity Clear (Clear) 04/21/18 17:19 Urine pH 7.0 (5.0-8.0) 04/21/18 17:19 Ur Specific [place] 1.002 (1.003-1.030) L 04/21/18 17:19 Urine Protein Negative mg/dL (NEGATIVE) 04/21/18 17:19 Urine Glucose (UA) Normal mg/dL (Normal) 04/21/18 17:19 Urine Ketones Negative mg/dL (NEGATIVE) 04/21/18 17:19 Urine Blood Negative (NEGATIVE) 04/21/18 17:19 Urine Nitrate Negative (NEGATIVE) 04/21/18 17:19 Urine Bilirubin Negative (NEGATIVE) 04/21/18 17:19 Urine Urobilinogen Normal mg/dL (0.2-1.0) 04/21/18 17:19 Ur Leukocyte Esterase Neg Ellie/uL (Negative) 04/21/18 17:19 Alcohol, Quantitative 235 mg/dl (0-10) H 04/21/18 16:51 - Hospital Course Hospital Course: PT IS CLEARED FOR D/C HOME TODAY. I DISCUSSED D/C PLAN, F/U APPTS, AND MEDS WITH THE PT AND HE IS IN AGREEMENT WITH PLAN. PER PT HE HAS ALL HOME MEDS AND NEEDS NO REFILLS. TO F/U WITH DR. VASQUEZ IN 1 WEEK. NO FURTHER ORDERS. -FOLLOW UP WITH ME IN THE OFFICE WITHIN 1-2 WEEKS---CALL THE OFFICE TO MAKE YOUR APPOINTMENT. -CONTINUE HOME MEDICATIONS USUAL. -REFRAIN FROM ALCOHOL USE. -FEEL FREE TO FOLLOW UP WITH THE OUTPATIENT MENTAL HEALTH OFFICE: [address] [place] [address]; [phone]. -IF YOU HAVE ANY FURTHER QUESTIONS OR CONCERNS, CONTACT DR. VASQUEZ'S OFFICE. Discharge Exam - Head Exam Head Exam: ATRAUMATIC, NORMAL INSPECTION, NORMOCEPHALIC Discharge Plan - Follow Up Plan Condition: STABLE Disposition: HOME/ ROUTINE Instructions: Alcohol Withdrawal (DC), Alcohol Abuse and Alcoholism (DC) Additional Instructions: -FOLLOW UP WITH DR. VASQUEZ IN THE OFFICE WITHIN 1-2 WEEKS---CALL THE OFFICE TO MAKE YOUR APPOINTMENT. -CONTINUE HOME MEDICATIONS USUAL. -REFRAIN FROM ALCOHOL USE. -FEEL FREE TO FOLLOW UP WITH THE OUTPATIENT MENTAL HEALTH OFFICE: [address] [place] [address]; [phone]. -IF YOU HAVE ANY FURTHER QUESTIONS OR CONCERNS, CONTACT DR. VASQUEZ'S OFFICE. Referrals: Venkata Lazo MD [Staff Provider] - Dennys Vasquez MD [Staff Provider] -
== END 2018-04-29 14:30 | disposition home or self-care (01) | DRG 897 ==
LOC: C.ER 16:05 → C.9E 17:45 → C.9I 22:50 → C.3T 04-26 17:25
PROVIDERS: ADMIT Internal Medicine; ATTEND Internal Medicine
PROC: HZ2ZZZZ Detoxification Services for Substance Abuse Treatment (ICD-10-PCS; principal; 2018-04-21)
DX: F10.230 Alcohol dependence with withdrawal, uncomplicated (principal); F10.220 Alcohol dependence with intoxication, uncomplicated; Y90.7 Blood alcohol level of 200-239 mg/100 ml; E78.5 Hyperlipidemia, unspecified; I10 Essential (primary) hypertension; G47.30 Sleep apnea, unspecified; E11.51 Type 2 diabetes mellitus with diabetic peripheral angiopathy without gangrene; N40.0 Benign prostatic hyperplasia without lower urinary tract symptoms; F17.210 Nicotine dependence, cigarettes, uncomplicated; Z95.5 Presence of coronary angioplasty implant and graft; I25.10 Atherosclerotic heart disease of native coronary artery without angina pectoris; F31.9 Bipolar disorder, unspecified

== ENCOUNTER 2018-05-10 13:32 | Emergency (ER) | payer OTHER ==
[2018-05-10 13:38] VITALS: BMI 28.2
[2018-05-10 13:41] VITALS: BP 147/83; PULSE 76; RESP 18; TEMP 99.1; O2SAT 98
--- NOTE | 2018-05-10 13:46 | C.PDOC ---
History Of Present Illness 62 y/o male brought to ED by EMS for chronic pain issues. Patient si well known to EMS and ED for similar complaints and has history of ETOH abuse. At ED patient c/o left shoulder pain and denies injury, numbness or any other complaints at this time. Time Seen by Provider: 05/10/18 13:42 Chief Complaint (Nursing): Upper Extremity Problem/Injury History Per: Patient History/Exam Limitations: no limitations Onset/Duration Of Symptoms: Days Current Symptoms Are (Timing): Still Present Quality: "Pain" Past Medical History Reviewed: Historical Data, Nursing Documentation, Vital Signs Vital Signs: Last Vital Signs Temp 99.1 F 05/10/18 13:38 Pulse 76 05/10/18 13:38 Resp 18 05/10/18 13:38 BP 147/83 05/10/18 13:38 Pulse Ox 98 05/10/18 14:14 - Medical History PMH: Anxiety, Arthritis, Asthma, Benign Prostatic Hyperplasia, Bipolar Disorder , Bronchitis, CAD, Cardia Arrhythmia, COPD, Depression, Diabetes, Emphysema, Gastritis, Hepatitis (PATIENT STATED HE HAS HEPATITIS BUT COULD NOT RECALL WHICH ONE), HTN, Hypercholesterolemia, Hyperlipidemia, Migraine, Pancreatitis, Pneumonia, Seizures (ETOH related), Sleep Apnea Surgical History: CABG ((quadruple bypass) 2010), Coronary Stent - [facility] Procedures ALCOHOL DETOXIFICATION (03/12/15) CORONAR ARTERIOGR-2 CATH (07/24/15) CORONARY ARTERY STENT INSERTION [id number] (07/24/15) DETOXIFICATION SERVICES FOR SUBSTANCE ABUSE TREATMENT (04/21/18) ESOPHAGOGASTRODUODENOSCOPY [EGD] W/CLOSED BIOPSY (05/21/13) EXCISION OF DESCENDING COLON, ENDO, DIAGN (06/01/17) EXCISION OF STOMACH, ENDO, DIAGN (06/01/17) GROUP PSYCHOTHERAPY (02/23/18) INDIV PSYCHOTHERAPY FOR SUBSTANCE ABUSE TREATMENT, SUPPORT (11/09/17) INDIV PSYCHOTHERAPY FOR SUBSTANCE ABUSE, COGNITIV BEHAVIORAL (11/09/17) INDIV PSYCHOTHERAPY FOR SUBSTANCE ABUSE, MOTIVATION ENHANCE (11/29/17) INDIV PSYCHOTHERAPY FOR SUBSTANCE ABUSE, PSYCHOEDUCATION (11/29/17) INDIVID PSYCHOTHERAP NEC (11/04/14) INDIVIDUAL PSYCHOTHERAPY, BEHAVIORAL (02/23/18) INDIVIDUAL PSYCHOTHERAPY, COGNITIVE-BEHAVIORAL (11/19/16) INDIVIDUAL PSYCHOTHERAPY, SUPPORTIVE (10/02/16) INSERTION OF ONE VASCULAR STENT (07/24/15) INTRODUCE OF OTH THERAP SUBST INTO RESP TRACT, VIA OPENING (02/05/18) IRRIGATION OF EAR (05/23/15) LEFT HEART CARDIAC CATH (07/19/15) LT HEART ANGIOCARDIOGRAM (07/19/15) OTHER GROUP THERAPY (11/04/14) PACKED CELL TRANSFUSION (05/21/13) PERCUTANEOUS TRANSLUMINAL CORONARY ANGIOPLASTY [PTCA] (07/24/15) PROCEDURE ON SINGLE VESSEL (07/24/15) PSYCHIAT DRUG THERAP NEC (11/04/14) RT HEART ANGIOCARDIOGRAM (07/22/15) RT HEART CARDIAC CATH (07/22/15) VACCINATION NEC (09/28/14) Family History: States: No Known Family Hx - Social History Hx Tobacco Use: Yes Hx Alcohol Use: Yes (2 pints rum/day) Hx Substance Use: No - Immunization History Hx Tetanus Toxoid Vaccination: Yes Hx Influenza Vaccination: Yes Hx Pneumococcal Vaccination: Yes Review Of Systems Constitutional: Negative for: Fever, Chills Cardiovascular: Negative for: Chest Pain Gastrointestinal: Negative for: Nausea, Vomiting Musculoskeletal: Positive for: Shoulder Pain Skin: Negative for: Rash Neurological: Negative for: Weakness, Numbness Physical Exam - Physical Exam Appears: Non-toxic, Other (anxious appearing) Skin: Warm, Dry, No Rash Head: Atraumatic, Normacephalic Eye(s): bilateral: Normal Inspection Oral Mucosa: Moist Neck: Normal ROM, Supple Extremity: Normal ROM, Capillary Refill (<2 seconds), No Deformity Pulses: Left Radial: Normal Neurological/Psych: Oriented x3, Normal Motor, Normal Sensation ED Course And Treatment ECG: Interpreted By Me ECG Rhythm: Sinus Rhythm ECG Interpretation: Normal, Abnormal (t^ inversions in lateral leads unchanged from prior 04/21/18) Rate From EC O2 Sat by Pulse Oximetry: 98 (RA) Pulse Ox Interpretation: Normal Medical Decision Making Medical Decision Making: chronic pains MANY prior evals for psych/pain/etoh underlying bipolar/anxiety/alcohol abuse. ? alcohol abuse per EMS seems to be out of his "Pain" meds, but [place] shows no recent Rx's for controlled substances. no acute issues. opt f/u w PMD Disposition Doctor Will See Patient In The: Office Counseled Patient/Family Regarding: Studies Performed, Diagnosis - Disposition Referrals: Dennys Vasquez MD [Staff Provider] - Disposition: HOME/ ROUTINE Disposition Time: 13:46 Condition: GOOD Additional Instructions: continue ice packs and motrin as needed Follow-up with Dr. Vasquez as needed. Instructions: Chronic Pain (DC) Forms: [employer] (Lithuanian) - Clinical Impression Clinical Impression: Chronic pain - Scribe Statement The provider has reviewed the documentation as recorded by the Scribmiquel Hooker All medical record entries made by the Hilarioibmiquel were at my direction and personally dictated by me. I have reviewed the chart and agree that the record accurately reflects my personal performance of the history, physical exam, medical decision making, and the department course for this patient. I have also personally directed, reviewed, and agree with the discharge instructions and disposition.
--- NOTE | 2018-05-11 19:39 | CARD ---
APPROVED REPORT EKG Measurement Heart [id number] <Conclusion> Normal sinus rhythm Possible Left atrial enlargement Anterior infarct, age undetermined ST & T wave abnormality, consider lateral ischemia Abnormal ECG
== END 2018-05-10 14:23 | disposition home or self-care (01) ==
LOC: C.ER 13:32
DX: G89.29 Other chronic pain (principal); I10 Essential (primary) hypertension; F17.210 Nicotine dependence, cigarettes, uncomplicated

== ENCOUNTER 2018-05-24 13:58 | Emergency (ER) | payer OTHER ==
[2018-05-24 13:59] VITALS: BMI 28.2
== END 2018-05-24 15:31 | disposition left against medical advice (07) ==
LOC: C.ER 13:58
DX: Z02.89 Encounter for other administrative examinations (principal); F19.10 Other psychoactive substance abuse, uncomplicated

== ENCOUNTER 2018-05-27 16:20 | Emergency (ER) | payer OTHER ==
[2018-05-27 16:35] VITALS: BMI 27.2
[2018-05-27 16:39] VITALS: BP 154/78; PULSE 74; RESP 18; TEMP 98.7; O2SAT 97
--- NOTE | 2018-05-27 16:57 | C.PDOC ---
History Of Present Illness 62 y/o male with history of substance and ETOH abuse brought to ED for acute ETOH intoxication and with complaints of chronic pain. Patient admits he has been drinking today. at bedside pt denies cp sob shoulder pain. Patient denies fever, chills, SI/HI or any other complaints at this time. Time Seen by Provider: 05/27/18 16:46 Chief Complaint (Nursing): Substance Abuse History Per: Patient History/Exam Limitations: no limitations Onset/Duration Of Symptoms: Days Current Symptoms Are (Timing): Still Present Suicide/Self Injury Attempted (Context): None Modifying Factor(s): Alcohol Past Medical History Reviewed: Historical Data, Nursing Documentation, Vital Signs Vital Signs: Last Vital Signs Temp 98.7 F 05/27/18 16:25 Pulse 74 05/27/18 16:25 Resp 18 05/27/18 16:25 BP 154/78 H 05/27/18 16:25 Pulse Ox 97 05/27/18 17:54 - Medical History PMH: Anxiety, Arthritis, Asthma, Benign Prostatic Hyperplasia, Bipolar Disorder , Bronchitis, CAD, Cardia Arrhythmia, COPD, Depression, Diabetes, Emphysema, Gastritis, Hepatitis (PATIENT STATED HE HAS HEPATITIS BUT COULD NOT RECALL WHICH ONE), HTN, Hypercholesterolemia, Hyperlipidemia, Migraine, Pancreatitis, Pneumonia, Seizures (ETOH related), Sleep Apnea Surgical History: CABG ((quadruple bypass) 2010), Coronary Stent - [facility] Procedures ALCOHOL DETOXIFICATION (03/12/15) CORONAR ARTERIOGR-2 CATH (07/24/15) CORONARY ARTERY STENT INSERTION [id number] (07/24/15) DETOXIFICATION SERVICES FOR SUBSTANCE ABUSE TREATMENT (04/21/18) ESOPHAGOGASTRODUODENOSCOPY [EGD] W/CLOSED BIOPSY (05/21/13) EXCISION OF DESCENDING COLON, ENDO, DIAGN (06/01/17) EXCISION OF STOMACH, ENDO, DIAGN (06/01/17) GROUP PSYCHOTHERAPY (02/23/18) INDIV PSYCHOTHERAPY FOR SUBSTANCE ABUSE TREATMENT, SUPPORT (11/09/17) INDIV PSYCHOTHERAPY FOR SUBSTANCE ABUSE, COGNITIV BEHAVIORAL (11/09/17) INDIV PSYCHOTHERAPY FOR SUBSTANCE ABUSE, MOTIVATION ENHANCE (11/29/17) INDIV PSYCHOTHERAPY FOR SUBSTANCE ABUSE, PSYCHOEDUCATION (11/29/17) INDIVID PSYCHOTHERAP NEC (11/04/14) INDIVIDUAL PSYCHOTHERAPY, BEHAVIORAL (02/23/18) INDIVIDUAL PSYCHOTHERAPY, COGNITIVE-BEHAVIORAL (11/19/16) INDIVIDUAL PSYCHOTHERAPY, SUPPORTIVE (10/02/16) INSERTION OF ONE VASCULAR STENT (07/24/15) INTRODUCE OF OTH THERAP SUBST INTO RESP TRACT, VIA OPENING (02/05/18) IRRIGATION OF EAR (05/23/15) LEFT HEART CARDIAC CATH (07/19/15) LT HEART ANGIOCARDIOGRAM (07/19/15) OTHER GROUP THERAPY (11/04/14) PACKED CELL TRANSFUSION (05/21/13) PERCUTANEOUS TRANSLUMINAL CORONARY ANGIOPLASTY [PTCA] (07/24/15) PROCEDURE ON SINGLE VESSEL (07/24/15) PSYCHIAT DRUG THERAP NEC (11/04/14) RT HEART ANGIOCARDIOGRAM (07/22/15) RT HEART CARDIAC CATH (07/22/15) VACCINATION NEC (09/28/14) Family History: States: No Known Family Hx - Social History Hx Tobacco Use: Yes Hx Alcohol Use: Yes (2 pints rum/day) Hx Substance Use: No - Immunization History Hx Tetanus Toxoid Vaccination: Yes Hx Influenza Vaccination: Yes Hx Pneumococcal Vaccination: Yes Review Of Systems Except As Marked, All Systems Reviewed And Found Negative. Psych: Positive for: Other (ETOH intoxication). Negative for: Suicidal ideation Physical Exam - Physical Exam Appears: Non-toxic, No Acute Distress, Other (ETOH on breath) Skin: Warm, Dry, No Rash Head: Atraumatic, Normacephalic Eye(s): bilateral: Normal Inspection Oral Mucosa: Moist Neck: Supple Cardiovascular: Rhythm Regular Respiratory: Normal Breath Sounds, No Rales, No Rhonchi, No Wheezing Gastrointestinal/Abdominal: Soft, No Tenderness, No Guarding, No Rebound Neurological/Psych: Oriented x3, Normal Speech, Normal Cognition ED Course And Treatment ECG: Interpreted By Me, Viewed By Me ECG Rhythm: Sinus Rhythm, Nonspecific Changes ECG Interpretation: No Changes From Prior Rate From EC (BPM) O2 Sat by Pulse Oximetry: 97 (RA) Pulse Ox Interpretation: Normal Medical Decision Making Medical Decision Making: Patient eloped from ED , seen walking out of ED with steady gait in NAD. Disposition - Disposition Disposition: ELOPEMENT - ER ONLY Disposition Time: 06:00 Condition: UNKNOWN Forms: [facility] (French) - Clinical Impression Clinical Impression: Alcohol abuse - Scribe Statement The provider has reviewed the documentation as recorded by the Scribe Betsy Hooker All medical record entries made by the Hilarioibmiquel were at my direction and personally dictated by me. I have reviewed the chart and agree that the record accurately reflects my personal performance of the history, physical exam, medical decision making, and the department course for this patient. I have also personally directed, reviewed, and agree with the discharge instructions and disposition.
== END 2018-05-27 18:20 | disposition left against medical advice (07) ==
LOC: C.ER 16:20
DX: F10.129 Alcohol abuse with intoxication, unspecified (principal); Y90.9 Presence of alcohol in blood, level not specified

== ENCOUNTER 2018-05-28 17:43 | Emergency (ER) | payer OTHER ==
[2018-05-28 17:43] VITALS: BMI 27.2
[2018-05-28 17:48] VITALS: BP 177/75; PULSE 84; RESP 18; TEMP 98.6; O2SAT 100
--- NOTE | 2018-05-28 19:49 | C.PDOC ---
History Of Present Illness 62 year old male presents to the ER via EMS for ETOH intoxication. Patient admits to drinking 2 pints of rum today. He denies physical complaints at this time. Time Seen by Provider: 05/28/18 19:01 Chief Complaint (Nursing): Substance Abuse History Per: Patient History/Exam Limitations: no limitations Onset/Duration Of Symptoms: Hrs Current Symptoms Are (Timing): Still Present Suicide/Self Injury Attempted (Context): None Modifying Factor(s): Alcohol Severity: Moderate Involuntary Hold By: None Recent travel outside of the [place]: No Past Medical History Reviewed: Historical Data, Nursing Documentation, Vital Signs Vital Signs: Last Vital Signs Temp 98.6 F 05/28/18 17:46 Pulse 84 05/28/18 17:46 Resp 18 05/28/18 17:46 BP 177/75 H 05/28/18 17:46 Pulse Ox 100 05/28/18 19:53 - Medical History PMH: Anxiety, Arthritis, Asthma, Benign Prostatic Hyperplasia, Bipolar Disorder , Bronchitis, CAD, Cardia Arrhythmia, COPD, Depression, Diabetes, Emphysema, Gastritis, Hepatitis (PATIENT STATED HE HAS HEPATITIS BUT COULD NOT RECALL WHICH ONE), HTN, Hypercholesterolemia, Hyperlipidemia, Migraine, Pancreatitis, Pneumonia, Seizures (ETOH related), Sleep Apnea Surgical History: CABG ((quadruple bypass) 2010), Coronary Stent - [facility] Procedures ALCOHOL DETOXIFICATION (03/12/15) CORONAR ARTERIOGR-2 CATH (07/24/15) CORONARY ARTERY STENT INSERTION [id number] (07/24/15) DETOXIFICATION SERVICES FOR SUBSTANCE ABUSE TREATMENT (04/21/18) ESOPHAGOGASTRODUODENOSCOPY [EGD] W/CLOSED BIOPSY (05/21/13) EXCISION OF DESCENDING COLON, ENDO, DIAGN (06/01/17) EXCISION OF STOMACH, ENDO, DIAGN (06/01/17) GROUP PSYCHOTHERAPY (02/23/18) INDIV PSYCHOTHERAPY FOR SUBSTANCE ABUSE TREATMENT, SUPPORT (11/09/17) INDIV PSYCHOTHERAPY FOR SUBSTANCE ABUSE, COGNITIV BEHAVIORAL (11/09/17) INDIV PSYCHOTHERAPY FOR SUBSTANCE ABUSE, MOTIVATION ENHANCE (11/29/17) INDIV PSYCHOTHERAPY FOR SUBSTANCE ABUSE, PSYCHOEDUCATION (11/29/17) INDIVID PSYCHOTHERAP NEC (11/04/14) INDIVIDUAL PSYCHOTHERAPY, BEHAVIORAL (02/23/18) INDIVIDUAL PSYCHOTHERAPY, COGNITIVE-BEHAVIORAL (11/19/16) INDIVIDUAL PSYCHOTHERAPY, SUPPORTIVE (10/02/16) INSERTION OF ONE VASCULAR STENT (07/24/15) INTRODUCE OF OTH THERAP SUBST INTO RESP TRACT, VIA OPENING (02/05/18) IRRIGATION OF EAR (05/23/15) LEFT HEART CARDIAC CATH (07/19/15) LT HEART ANGIOCARDIOGRAM (07/19/15) OTHER GROUP THERAPY (11/04/14) PACKED CELL TRANSFUSION (05/21/13) PERCUTANEOUS TRANSLUMINAL CORONARY ANGIOPLASTY [PTCA] (07/24/15) PROCEDURE ON SINGLE VESSEL (07/24/15) PSYCHIAT DRUG THERAP NEC (11/04/14) RT HEART ANGIOCARDIOGRAM (07/22/15) RT HEART CARDIAC CATH (07/22/15) VACCINATION NEC (09/28/14) Family History: States: No Known Family Hx - Social History Hx Tobacco Use: Yes Hx Alcohol Use: Yes (2 pints rum/day) Hx Substance Use: No - Immunization History Hx Tetanus Toxoid Vaccination: Yes Hx Influenza Vaccination: Yes Hx Pneumococcal Vaccination: Yes Review Of Systems Constitutional: Positive for: Other (Intoxicated) Cardiovascular: Negative for: Chest Pain Respiratory: Negative for: Shortness of Breath Gastrointestinal: Negative for: Nausea, Vomiting, Abdominal Pain Genitourinary: Negative for: Dysuria, Hematuria Skin: Negative for: Rash Physical Exam - Physical Exam Appears: Well, Non-toxic, No Acute Distress, Other (Intoxicated) Skin: Normal Color, Warm, Dry Head: Atraumatic, Normacephalic Eye(s): bilateral: Normal Inspection Oral Mucosa: Moist Neck: Normal, No Midline Cervical Tenderness, No Paracervical Tenderness, No Step Off Deformity, Supple Cardiovascular: Rhythm Regular Respiratory: Normal Breath Sounds, No Rales, No Rhonchi, No Wheezing Gastrointestinal/Abdominal: Normal Exam, Bowel Sounds, Soft, No Tenderness Back: No CVA Tenderness Extremity: Normal ROM Neurological/Psych: Other (awake, alert, intoxicated, moving all 4 extremities spontaneously ) Gait: Steady (w/ cane) ED Course And Treatment O2 Sat by Pulse Oximetry: 100 (Room air) Pulse Ox Interpretation: Normal Progress Note: Patient pending sobriety. At 1945 patient witnessed eloping with cane. Disposition - Disposition Disposition: ELOPEMENT - ER ONLY Disposition Time: 19:45 Condition: STABLE Forms: [facility] (Swedish) - Clinical Impression Clinical Impression: Alcohol intoxication - Scribe Statement The provider has reviewed the documentation as recorded by the Scribe Galo Garay All medical record entries made by the Scribe were at my direction and personally dictated by me. I have reviewed the chart and agree that the record accurately reflects my personal performance of the history, physical exam, medical decision making, and the department course for this patient. I have also personally directed, reviewed, and agree with the discharge instructions and disposition.
== END 2018-05-28 19:50 | disposition left against medical advice (07) ==
LOC: C.ER 17:43
DX: F10.129 Alcohol abuse with intoxication, unspecified (principal); Y90.9 Presence of alcohol in blood, level not specified

== ENCOUNTER 2018-05-30 11:19 | Inpatient (IN) | payer OTHER ==
[2018-05-30 11:19] VITALS: BMI 27.2
[2018-05-30 12:13] LABS: BASO # 0.1 K/uL (0.0-0.2); BASO % 1.3 % (0.0-2.0); EOS % 1.1 % (0.0-4.0); HEMOGLOBIN 12.3 g/dL (12.0-18.0); LYMPH # 0.9 K/uL (1.0-4.3); LYMPH % 20.8 % (20.0-40.0); MEAN CELL VOLUME 80.2 fL (80.0-94.0); MEAN CORPUSCULAR HEMOGLOBIN 25.8 pg (27.0-31.0); MEAN CORPUSCULAR HGB CONC 32.2 g/dL (33.0-37.0); MEAN PLATELET VOLUME 8.4 fL (7.2-11.7); MONO # 0.5 K/uL (0.0-0.8); MONO % 12.1 % (0.0-10.0); NEUT # 2.8 K/uL (1.8-7.0); NEUT % 64.7 % (50.0-75.0); RBC 4.77 Mil/uL (4.40-5.90); RED CELL DISTRIBUTION WIDTH 20.3 % (11.5-14.5); WHITE BLOOD COUNT 4.4 K/uL (4.8-10.8)
[2018-05-30] MEDS: Sodium Chloride 0.9% 1,000 ML IV SCH ×2 (12:20→22:40)
[2018-05-30 12:26] LABS: ALB/GLOB RATIO 1.1 (1.0-2.1); ALBUMIN 3.7 g/dL (3.5-5.0); ALT/SGPT 40 U/L (21-72); AST/SGOT 53 U/L (17-59); BLOOD UREA NITROGEN 6 mg/dL (9-20); CALCIUM 8.9 mg/dl (8.6-10.4); GFR AFRICAN-AMERICAN > 60; GFR NON-AFRICAN AMERICAN > 60; LIPASE 265 U/L (23-300)
[2018-05-30] MEDS ORDERED: Iodixanol 320 MG/ML 100 ML BOTTLE IV ONE (13:09)
--- NOTE | 2018-05-30 14:19 | CT ---
Date of service: 05/30/2018 PROCEDURE: CT Abdomen and Pelvis with intravenous contrast HISTORY: diffuse abdominal pain COMPARISON: None. TECHNIQUE: Multiple contiguous axial images were performed through the abdomen and pelvis with the use intravenous contrast. Subsequently, sagittal and coronal reformatted images were obtained. Radiation dose: Total exam DLP = 578 mGy-cm. This CT exam was performed using one or more of the following dose reduction techniques: Automated exposure control, adjustment of the mA and/or kV according to patient size, and/or use of iterative reconstruction technique. FINDINGS: LOWER THORAX: Scattered atelectasis. Coronary calcifications. LIVER: Fatty infiltration of the liver. GALLBLADDER AND BILE DUCTS: 4 millimeter rounded foci of increased attenuation seen within the dependent portion of the gallbladder which may represent calculi and or possible polyp. Clinical correlation. Correlation with right upper quadrant ultrasound may be helpful if clinically indicated. PANCREAS: Unremarkable. No gross lesion or ductal dilatation. SPLEEN: Unremarkable. ADRENALS: Nodular thickening of the adrenal glands. KIDNEYS AND URETERS: At the upper pole of the right kidney there is a 2.1 centimeter upper pole low-attenuation lesion measuring a Hounsfield unit attenuation of 19 containing multiple internal cysts and or loculations suggestive for a complex cyst/complex cystic lesion. Correlation with multiphasic CT or MR is recommended to exclude underlying cystic neoplasm. Clinical correlation. 9 millimeter low-attenuation lesion in the upper pole of the left kidney, too small to adequately characterize. Mild perinephric fat stranding. VASCULATURE: Calcification and plaque within the aorta and visualized vasculature. BOWEL: Scattered focal areas of colonic thickening seen at the level of the ascending colon, proximal descending colon, and proximal sigmoid. The focal thickening at the level of the proximal sigmoid colon is the most prominent. These changes may represent a mild multi focal colitis. Clinical correlation. APPENDIX: Unremarkable. Normal appendix. PERITONEUM: Unremarkable. No free fluid. No free air. LYMPH NODES: Shotty para-aortic and mesenteric lymph nodes. BLADDER: Mildly thick walled. REPRODUCTIVE: Heterogeneous and prominent prostate with associated calcifications. Prominent seminal vesicles. BONES: Degenerative changes in the spine. Mild loss height of the superior endplate of the T12 vertebral body. Multilevel anterior and paravertebral osteophytes throughout the thoracic spine. Curvilinear sclerosis seen at the level of the left femoral head at the articular surface concerning for possible avascular necrosis. Clinical correlation. Correlation with MRI may be helpful if clinically indicated. OTHER FINDINGS: None. IMPRESSION: 1. Scattered focal areas of colonic thickening seen at the level of the ascending colon, proximal descending colon, and proximal sigmoid. The focal thickening at the level of the proximal sigmoid colon is the most prominent. These changes may represent a mild multifocal colitis. Clinical correlation. 2. At the upper pole of the right kidney, there is a 2.1 centimeter upper pole low-attenuation lesion measuring a Hounsfield unit attenuation of 19 containing multiple internal cysts and or loculations suggestive for a complex cyst/complex cystic lesion. Correlation with multiphasic CT or MR is recommended to exclude underlying cystic neoplasm. Clinical correlation. 3. urvilinear sclerosis seen at the level of the left femoral head at the articular surface concerning for possible avascular necrosis. Clinical correlation. Correlation with MRI may be helpful if clinically indicated. 4. 4 millimeter rounded foci of increased attenuation seen within the dependent portion of the gallbladder which may represent calculi and or possible polyp. Clinical correlation. Correlation with right upper quadrant ultrasound may be helpful if clinically indicated. 5. Nodular thickening of the adrenal glands. 6. Fatty infiltration of the liver. Additional findings as above.
[2018-05-30] MEDS ORDERED: metroNIDAZOLE IV 500 mg/100 ml 500 MG/100 ML BAG ONE (14:20)
[2018-05-30] MEDS: metroNIDAZOLE IV 500 mg/100 ml 500 MG/100 ML BAG IVPB SCH ×2 (14:20→22:56)
--- NOTE | 2018-05-30 14:27 | C.PDOC ---
History Of Present Illness 62 y/o male presents to ED c/o chest pain and abdominal pain for the last 2 days. (+) dark stool. Pt is a chronic drinker and admits to drinking daily. Last drink was yesterday. (+)mild nausea, (+)hand tremor. Denies vomiting, or fever. Chief Complaint (Nursing): Chest Pain History Per: Patient History/Exam Limitations: no limitations Past Medical History Reviewed: Historical Data, Nursing Documentation, Vital Signs Vital Signs: Last Vital Signs Temp 98.4 F 05/30/18 11:30 Pulse 76 05/30/18 16:41 Resp 16 05/30/18 16:41 BP 165/67 H 05/30/18 16:41 Pulse Ox 99 05/30/18 16:41 - Medical History PMH: Anxiety, Arthritis, Asthma, Benign Prostatic Hyperplasia, Bipolar Disorder , Bronchitis, CAD, Cardia Arrhythmia, COPD, Depression, Diabetes, Emphysema, Gastritis, Hepatitis (PATIENT STATED HE HAS HEPATITIS BUT COULD NOT RECALL WHICH ONE), HTN, Hypercholesterolemia, Hyperlipidemia, Migraine, Pancreatitis, Pneumonia, Seizures (ETOH related), Sleep Apnea Denies: Anemia, Diverticulitis, Fractures, HIV, Hyperthyroidism, Hypothyroidism, Pulmonary Embolism, Chronic Kidney Disease, Sickle Cell Disease , Sexually Transmitted Disease Surgical History: CABG ((quadruple bypass) 2010), Coronary Stent - [facility] Procedures ALCOHOL DETOXIFICATION (03/12/15) CORONAR ARTERIOGR-2 CATH (07/24/15) CORONARY ARTERY STENT INSERTION [id number] (07/24/15) DETOXIFICATION SERVICES FOR SUBSTANCE ABUSE TREATMENT (04/21/18) ESOPHAGOGASTRODUODENOSCOPY [EGD] W/CLOSED BIOPSY (05/21/13) EXCISION OF DESCENDING COLON, ENDO, DIAGN (06/01/17) EXCISION OF STOMACH, ENDO, DIAGN (06/01/17) GROUP PSYCHOTHERAPY (02/23/18) INDIV PSYCHOTHERAPY FOR SUBSTANCE ABUSE TREATMENT, SUPPORT (11/09/17) INDIV PSYCHOTHERAPY FOR SUBSTANCE ABUSE, COGNITIV BEHAVIORAL (11/09/17) INDIV PSYCHOTHERAPY FOR SUBSTANCE ABUSE, MOTIVATION ENHANCE (11/29/17) INDIV PSYCHOTHERAPY FOR SUBSTANCE ABUSE, PSYCHOEDUCATION (11/29/17) INDIVID PSYCHOTHERAP NEC (11/04/14) INDIVIDUAL PSYCHOTHERAPY, BEHAVIORAL (02/23/18) INDIVIDUAL PSYCHOTHERAPY, COGNITIVE-BEHAVIORAL (11/19/16) INDIVIDUAL PSYCHOTHERAPY, SUPPORTIVE (10/02/16) INSERTION OF ONE VASCULAR STENT (07/24/15) INTRODUCE OF OTH THERAP SUBST INTO RESP TRACT, VIA OPENING (02/05/18) IRRIGATION OF EAR (05/23/15) LEFT HEART CARDIAC CATH (07/19/15) LT HEART ANGIOCARDIOGRAM (07/19/15) OTHER GROUP THERAPY (11/04/14) PACKED CELL TRANSFUSION (05/21/13) PERCUTANEOUS TRANSLUMINAL CORONARY ANGIOPLASTY [PTCA] (07/24/15) PROCEDURE ON SINGLE VESSEL (07/24/15) PSYCHIAT DRUG THERAP NEC (11/04/14) RT HEART ANGIOCARDIOGRAM (07/22/15) RT HEART CARDIAC CATH (07/22/15) VACCINATION NEC (09/28/14) Family History: States: Unknown Family Hx - Social History Hx Tobacco Use: Yes Hx Alcohol Use: Yes (2 pints rum/day) Hx Substance Use: No - Immunization History Hx Tetanus Toxoid Vaccination: Yes Hx Influenza Vaccination: No Hx Pneumococcal Vaccination: Yes Review Of Systems Except As Marked, All Systems Reviewed And Found Negative. Constitutional: Negative for: Fever, Chills Cardiovascular: Positive for: Chest Pain. Negative for: Palpitations Respiratory: Negative for: Cough, Shortness of Breath Gastrointestinal: Positive for: Nausea, Abdominal Pain. Negative for: Vomiting , Diarrhea Genitourinary: Negative for: Dysuria, Frequency, Hematuria Physical Exam - Physical Exam Appears: Non-toxic, No Acute Distress Skin: Normal Color, Warm, Dry Head: Atraumatic, Normacephalic Eye(s): bilateral: Normal Inspection Oral Mucosa: Moist Tongue: Other (tongue fasciculation) Neck: Supple Cardiovascular: Rhythm Regular Respiratory: Normal Breath Sounds, No Rales, No Rhonchi, No Wheezing Gastrointestinal/Abdominal: Soft, Tenderness (mild diffuse), No Guarding, No Rebound Rectal: Heme Positive (weakly) Extremity: Other ((+) hand tremor) Neurological/Psych: Oriented x3, Normal Speech ED Course And Treatment - Laboratory Results Result Diagrams: 05/30/18 12:04 05/30/18 12:04 ECG: Interpreted By Me, Viewed By Me ECG Rhythm: Sinus Rhythm ECG Interpretation: Normal Interpretation Of ECG: Normal intervals, and axis Rate From EC (bpm) O2 Sat by Pulse Oximetry: 99 (RA) Pulse Ox Interpretation: Normal Medical Decision Making Medical Decision Making: Plan: Blood work Abd & Pelvis CT CXR EKG Aspirin, Librium, IV fluids Spoke with Dr. Vasquez who agrees upon admission to med floor. Disposition - Disposition Disposition Time: 13:00 Condition: FAIR - Clinical Impression Clinical Impression: Alcohol dependence, Lower GI bleed - Scribe Statement The provider has reviewed the documentation as recorded by the Scribe KP All medical record entries made by the Scribe were at my direction and personally dictated by me. I have reviewed the chart and agree that the record accurately reflects my personal performance of the history, physical exam, medical decision making, and the department course for this patient. I have also personally directed, reviewed, and agree with the discharge instructions and disposition.
--- NOTE | 2018-05-30 15:14 | RAD ---
Chest x-ray single frontal view History: Chest pain. Comparison: 04/21/2018 Findings: Mild to moderate venous congestion. Patchy increased markings at the left lung base. Status post median sternotomy. Tortuous aorta. Cardiomegaly. Degenerative changes in the spine. Impression: Mild to moderate venous congestion. Patchy increased markings at the left lung base. Status post median sternotomy. Tortuous aorta. Cardiomegaly.
[2018-05-30] MEDS ORDERED: Nitroglycerin 2% Ointment Foilpak UD TOP ONE ×2 (19:09→19:14)
[2018-05-31] MEDS: metroNIDAZOLE IV 500 mg/100 ml 500 MG/100 ML BAG IVPB SCH ×3 (06:30→21:20)
[2018-05-31] MEDS: Pantoprazole 40 mg EC Tab PO SCH (09:24)
[2018-05-31] MEDS: Enoxaparin 30 mg Syringe SC SCH (09:25)
[2018-05-31] MEDS: Multivitamin With Minerals Tab PO SCH (09:25)
--- NOTE | 2018-05-31 10:31 | CP.PCM.HP ---
History of Present Illness - History of Present Illness History of Present Illness: History Of Present Illness 62 y/o male presents to ED c/o chest pain and abdominal pain for the last 2 days. (+) dark stool. Pt is a chronic drinker and admits to drinking daily. Last drink was yesterday. (+)mild nausea, (+)hand tremor. Denies vomiting, or fever. Past Patient History - Infectious Disease Hx of Infectious Diseases: None - Past Medical History & Family History Past Medical History?: Yes - Past Social History Smoking Status: Heavy Smoker > 10 Cigarettes Daily - CARDIAC Hx Cardia Arrhythmia: Yes Hx Hypercholesterolemia: Yes Hx Hypertension: Yes - PULMONARY Hx Asthma: Yes Hx Bronchitis: Yes Hx Chronic Obstructive Pulmonary Disease (COPD): Yes Hx Emphysema: Yes Hx Pneumonia: Yes Hx Pulmonary Embolism: No Hx Sleep Apnea: Yes - NEUROLOGICAL Hx Migraine: Yes Hx Seizures: Yes (ETOH related) - HEENT Hx HEENT Problems: No - RENAL Hx Chronic Kidney Disease: No - ENDOCRINE/METABOLIC Hx Hyperthyroidism: No Hx Hypothyroidism: No - HEMATOLOGICAL/ONCOLOGICAL Hx Anemia: No Hx Human Immunodeficiency Virus (HIV): No Hx Sickle Cell Disease: No - INTEGUMENTARY Hx Dermatological Problems: No - MUSCULOSKELETAL/RHEUMATOLOGICAL Hx Arthritis: Yes Hx Falls: Yes Hx Fractures: No - GASTROINTESTINAL Hx Diverticulitis: No Hx Gastritis: Yes Hx Pancreatitis: Yes - GENITOURINARY/GYNECOLOGICAL Hx Sexually Transmitted Disorders: No - PSYCHIATRIC Hx Anxiety: Yes Hx Bipolar Disorder: Yes Hx Depression: Yes Hx Substance Use: No - SURGICAL HISTORY Hx Coronary Artery Bypass Graft: Yes ((quadruple bypass) 2010) Hx Coronary Stent: Yes - ANESTHESIA Hx Anesthesia: Yes Hx Anesthesia Reactions: No Hx Malignant Hyperthermia: No Meds Allergies/Adverse Reactions: Allergies Allergy/AdvReac Type Severity Reaction Status Date / Time No Known Allergies Allergy Verified 05/28/18 17:45 Results - Vital Signs Recent Vital Signs: Last Vital Signs Temp 98.3 F 05/31/18 08:05 Pulse 73 05/31/18 08:05 Resp 18 05/31/18 08:05 BP 144/79 05/31/18 08:05 Pulse Ox 99 05/31/18 08:05 - Labs Result Diagrams: 05/30/18 12:04 05/30/18 12:04 Labs: Laboratory Results - last 24 hr 05/30/18 05/30/18 05/31/18 12:04 12:04 06:25 WBC 4.4 L RBC 4.77 Hgb 12.3 D Hct 38.2 MCV 80.2 MCH 25.8 L MCHC 32.2 L RDW 20.3 H Plt Count 187 MPV 8.4 Neut % (Auto) 64.7 Lymph % (Auto) 20.8 [place] % (Auto) 12.1 H Eos % (Auto) 1.1 Baso % (Auto) 1.3 Neut # (Auto) 2.8 Lymph # (Auto) 0.9 L [place] # (Auto) 0.5 Eos # (Auto) 0.0 Baso # (Auto) 0.1 Sodium 143 Potassium 3.6 Chloride 104 Carbon Dioxide 25 Anion Gap 18 BUN 6 L Creatinine 0.8 Est GFR ( Amer) > 60 Est GFR (Non-Af Amer) > 60 POC Glucose (mg/dL) 94 Random Glucose 109 Calcium 8.9 Total Bilirubin 0.5 AST 53 ALT 40 Alkaline Phosphatase 92 Troponin I 0.0210 Total Protein 7.1 Albumin 3.7 Globulin 3.4 Albumin/Globulin Ratio 1.1 Lipase 265 Alcohol, Quantitative 65 H
[2018-05-31] MEDS: Sodium Chloride 0.9% 1,000 ML IV SCH ×3 (11:18→21:19)
[2018-05-31 15:45] VITALS: RESP 20
[2018-06-01] MEDS: Sodium Chloride 0.9% 1,000 ML IV SCH (04:59)
[2018-06-01] MEDS: metroNIDAZOLE IV 500 mg/100 ml 500 MG/100 ML BAG IVPB SCH ×2 (05:06→13:40)
[2018-06-01] MEDS: Pantoprazole 40 mg EC Tab PO SCH (09:53)
[2018-06-01] MEDS: Enoxaparin 30 mg Syringe SC SCH (09:53)
[2018-06-01] MEDS: Multivitamin With Minerals Tab PO SCH (09:53)
--- NOTE | 2018-06-01 18:43 | RAD ---
Date of service: 06/01/2018 PROCEDURE: Radiographs of both shoulders HISTORY: Chest and shoulder Pain. No history of recent/ related trauma provided COMPARISON: No prior. FINDINGS: BONES: Right shoulder: Normal. No fracture. Left shoulder: Normal. No fracture. JOINTS: Right shoulder: Normal. No significant osteoarthritic changes. Left shoulder: Normal. No significant osteoarthritic changes. SOFT TISSUES: Right shoulder: Grossly unremarkable. Right shoulder: Grossly unremarkable. OTHER FINDINGS: None. IMPRESSION: No significant or acute findings to account for/ related to the clinical presentation.
--- NOTE | 2018-06-01 22:46 | CP.PCM.PN ---
Subjective - Date & Time of Evaluation Date of Evaluation: 06/01/18 Time of Evaluation: 17:00 - Subjective Subjective: pt is seen and examined, Objective - Vital Signs/Intake and Output Vital Signs (last 24 hours): Temp Pulse Resp BP Pulse Ox 98.1 F 64 20 153/75 H 98 06/01/18 15:45 06/01/18 16:00 06/01/18 15:45 06/01/18 15:45 06/01/18 15:45 Intake and Output: 06/01/18 06/02/18 18:59 06:59 Intake Total 450 Output Total 150 100 Balance 300 -100 - Medications Medications: Current Medications Albuterol/Ipratropium (Duoneb 3 Mg/0.5 Mg (3 Ml) Ud) 3 ml INH RQ6 PRN PRN Reason: Shortness of Breath Aspirin (Ecotrin) 81 mg PO DAILY [facility] Last Admin: 06/01/18 09:52 Dose: 81 mg Chlordiazepoxide (Librium) 25 mg PO Q4H PRN PRN Reason: Agitation Last Admin: 05/31/18 00:09 Dose: 25 mg Enoxaparin Sodium (Lovenox) 30 mg SC DAILY [facility] Last Admin: 06/01/18 09:53 Dose: 30 mg Escitalopram Oxalate (Lexapro) 10 mg PO DAILY [facility] Last Admin: 06/01/18 09:53 Dose: 10 mg Folic Acid (Folic Acid) 1 mg PO DAILY [facility] Last Admin: 06/01/18 09:53 Dose: 1 mg Gabapentin (Neurontin) 100 mg PO TID [facility] Last Admin: 06/01/18 17:46 Dose: 100 mg Sodium Chloride (Sodium Chloride 0.9%) 1,000 mls @ 100 mls/hr IV .Q10H [facility] Last Admin: 06/01/18 04:59 Dose: Not Given Losartan Potassium (Cozaar) 50 mg PO DAILY [facility] Last Admin: 06/01/18 09:52 Dose: 50 mg Metronidazole (Flagyl) 500 mg PO Q8 [facility] Last Admin: 06/01/18 21:27 Dose: 500 mg Multivitamins/Minerals (Therapeutic-M Tab) 1 tab PO DAILY [facility] Last Admin: 06/01/18 09:53 Dose: 1 tab Pantoprazole Sodium (Protonix Ec Tab) 40 mg PO DAILY [facility] Last Admin: 06/01/18 09:53 Dose: 40 mg Tamsulosin HCl (Flomax) 0.4 mg PO HS [facility] Last Admin: 06/01/18 21:27 Dose: 0.4 mg Thiamine HCl (Vitamin B1 Tab) 100 mg PO DAILY [facility] Last Admin: 06/01/18 09:52 Dose: 100 mg Topiramate (Topamax) 50 mg PO BID [facility] Last Admin: 06/01/18 17:46 Dose: 50 mg - Labs Labs: 05/30/18 12:04 05/30/18 12:04
[2018-06-02] MEDS: Sodium Chloride 0.9% 1,000 ML IV SCH (00:17)
[2018-06-02] MEDS: Albuterol-Ipratrop 3 mg / 0.5 (3 ml) UD INH PRN (07:50)
[2018-06-02] MEDS: Multivitamin With Minerals Tab PO SCH (10:22)
[2018-06-02] MEDS: Enoxaparin 30 mg Syringe SC SCH (10:22)
[2018-06-02] MEDS: Pantoprazole 40 mg EC Tab PO SCH (10:22)
--- NOTE | 2018-06-02 12:47 | CP.PCM.CON ---
History of Present Illness - History of Present Illness History of Present Illness: Orthopedic consultation Dr. Simms 62M complains of right shoulder pain after fall prior to admission onto right side. He denies any pain in his right shoulder prior to this fall, and he says he was able to move right shoulder "all the way" prior. He uses cane to walk, and can no longer use in right hand after the fall due to shoulder pain and weakness. He can not sleep due to the pain in his right shoulder. He admits to chronic left shoulder pain, but milder, and he is able to move left shoulder. He admits to being an alcoholic. He is admitted for CP/Abd pain. Last drink was day of admission. No prior injections or PT for shoulders. Denies numbness/ tingling/neck pain, elbow/hand pain. Denies SOB/CP/dizziness/fever/chills at this time. Review of Systems - Review of Systems All systems: reviewed and no additional remarkable complaints except - Cardiovascular Cardiovascular: As Per HPI - Respiratory Respiratory: As Per HPI - Musculoskeletal Musculoskeletal: As Per HPI - Integumentary Additional comments: no sores - Neurological Neurological: As Per HPI - Hematologic/Lymphatic Hematologic: absent: As Per HPI, Easy Bleeding, Easy Bruising, Lymphadenopathy, Other Past Patient History - Infectious Disease Hx of Infectious Diseases: None - Past Medical History & Family History Past Medical History?: Yes Past Family History: Reviewed and not pertinent - Past Social History Smoking Status: Heavy Smoker > 10 Cigarettes Daily - CARDIAC Hx Cardia Arrhythmia: Yes Hx Hypercholesterolemia: Yes Hx Hypertension: Yes - PULMONARY Hx Asthma: Yes Hx Bronchitis: Yes Hx Chronic Obstructive Pulmonary Disease (COPD): Yes Hx Emphysema: Yes Hx Pneumonia: Yes Hx Pulmonary Embolism: No Hx Sleep Apnea: Yes - NEUROLOGICAL Hx Migraine: Yes Hx Seizures: Yes (ETOH related) - HEENT Hx HEENT Problems: No - RENAL Hx Chronic Kidney Disease: No - ENDOCRINE/METABOLIC Hx Hyperthyroidism: No Hx Hypothyroidism: No - HEMATOLOGICAL/ONCOLOGICAL Hx Anemia: No Hx Human Immunodeficiency Virus (HIV): No Hx Sickle Cell Disease: No - INTEGUMENTARY Hx Dermatological Problems: No - MUSCULOSKELETAL/RHEUMATOLOGICAL Hx Arthritis: Yes Hx Falls: Yes Hx Fractures: No - GASTROINTESTINAL Hx Diverticulitis: No Hx Gastritis: Yes Hx Pancreatitis: Yes - GENITOURINARY/GYNECOLOGICAL Hx Sexually Transmitted Disorders: No - PSYCHIATRIC Hx Anxiety: Yes Hx Bipolar Disorder: Yes Hx Depression: Yes Hx Substance Use: No - SURGICAL HISTORY Hx Coronary Artery Bypass Graft: Yes ((quadruple bypass) 2010) Hx Coronary Stent: Yes - ANESTHESIA Hx Anesthesia: Yes Hx Anesthesia Reactions: No Hx Malignant Hyperthermia: No Meds Allergies/Adverse Reactions: Allergies Allergy/AdvReac Type Severity Reaction Status Date / Time No Known Allergies Allergy Verified 05/28/18 17:45 - Medications Medications: Current Medications Albuterol/Ipratropium (Duoneb 3 Mg/0.5 Mg (3 Ml) Ud) 3 ml INH RQ6 PRN PRN Reason: Shortness of Breath Last Admin: 06/02/18 07:50 Dose: 3 ml Aspirin (Ecotrin) 81 mg PO DAILY [facility] Last Admin: 06/02/18 10:22 Dose: 81 mg Chlordiazepoxide (Librium) 25 mg PO Q4H PRN PRN Reason: Agitation Last Admin: 05/31/18 00:09 Dose: 25 mg Enoxaparin Sodium (Lovenox) 30 mg SC DAILY [facility] Last Admin: 06/02/18 10:22 Dose: 30 mg Escitalopram Oxalate (Lexapro) 10 mg PO DAILY [facility] Last Admin: 06/02/18 10:22 Dose: 10 mg Folic Acid (Folic Acid) 1 mg PO DAILY [facility] Last Admin: 06/02/18 10:22 Dose: 1 mg Gabapentin (Neurontin) 100 mg PO TID [facility] Last Admin: 06/02/18 10:22 Dose: 100 mg Sodium Chloride (Sodium Chloride 0.9%) 1,000 mls @ 100 mls/hr IV .Q10H [facility] Last Admin: 06/02/18 00:17 Dose: Not Given Losartan Potassium (Cozaar) 50 mg PO DAILY [facility] Last Admin: 06/02/18 10:22 Dose: 50 mg Metronidazole (Flagyl) 500 mg PO Q8 [facility] Last Admin: 06/02/18 06:40 Dose: 500 mg Multivitamins/Minerals (Therapeutic-M Tab) 1 tab PO DAILY [facility] Last Admin: 06/02/18 10:22 Dose: 1 tab Pantoprazole Sodium (Protonix Ec Tab) 40 mg PO DAILY [facility] Last Admin: 06/02/18 10:22 Dose: 40 mg Tamsulosin HCl (Flomax) 0.4 mg PO HS [facility] Last Admin: 06/01/18 21:27 Dose: 0.4 mg Thiamine HCl (Vitamin B1 Tab) 100 mg PO DAILY [facility] Last Admin: 06/02/18 10:22 Dose: 100 mg Topiramate (Topamax) 50 mg PO BID [facility] Last Admin: 06/02/18 10:22 Dose: 50 mg Physical Exam - Constitutional Appears: Well, No Acute Distress - Head Exam Head Exam: ATRAUMATIC - Respiratory Exam Respiratory Exam: NORMAL BREATHING PATTERN - Cardiovascular Exam Additional comments: +radial pulse - Expanded Upper Extremities Exam Right Shoulder exam: tenderness (posteriorly, minimal AC joint tenderness, no ant/lat/ trap tenderness), normal inspection (no active fflex/abd, passive ROM to 30 degrees tolerated) Elbow exam: full ROM, normal inspection (non tender) Forearm Wrist exam: full ROM Neuro motor exam: finger 2-5 abduction intact, thumb abduction, thumb IP flexion intact, thumb opposition intact, wrist extension intact Neurosensory exam: median nerve intact, radial nerve intact, ulnar nerve intact Vascular exam: radial pulse - Neurological Exam Neurological exam: Alert, Oriented x3 - Psychiatric Exam Psychiatric exam: Normal Affect, Normal Mood - Skin Skin Exam: Dry, Intact, Normal Color, Warm Results - Vital Signs Recent Vital Signs: Last Vital Signs Temp 98.6 F 06/02/18 07:00 Pulse 88 06/02/18 07:50 Resp 20 06/02/18 07:00 BP 169/73 H 06/02/18 07:00 Pulse Ox 98 06/02/18 07:00 - Labs Result Diagrams: 05/30/18 12:04 05/30/18 12:04 - Impressions Impression: atient Name / ID : TONY GRIGSBY / [id number] Exam Date : 06/01/2018 18:28:17 ( Approved ) Study Comment : Sex / Age : M / 62Y Creator : Lorenzo Zhu MD Dictator : Lorenzo Zhu MD Clothes Ironer : 911 Telecommunicator : Lorenzo Zhu MD Approver2 : Report Date : 06/01/2018 18:42:08 My Comment : Date of service: 06/01/2018 PROCEDURE: Radiographs of both shoulders HISTORY: Chest and shoulder Pain. No history of recent/ related trauma provided COMPARISON: No prior. FINDINGS: BONES: Right shoulder: Normal. No fracture. Left shoulder: Normal. No fracture. JOINTS: Right shoulder: Normal. No significant osteoarthritic changes. Left shoulder: Normal. No significant osteoarthritic changes. SOFT TISSUES: Right shoulder: Grossly unremarkable. Right shoulder: Grossly unremarkable. OTHER FINDINGS: None. IMPRESSION: No significant or acute findings to account for/ related to the clinical presentation. Assessment & Plan (1) Unspecified rotator cuff tear or rupture of right shoulder, not specified as traumatic Assessment and Plan: suspected MRI PT pain medication PT/OT, dennis guerin d/w Dr. Simms, agrees with above Status: Acute (2) Arthritis of right acromioclavicular joint Status: Chronic
[2018-06-03 01:26] VITALS: O2SAT 98
[2018-06-03] MEDS: Albuterol-Ipratrop 3 mg / 0.5 (3 ml) UD INH PRN ×2 (07:20→12:30)
[2018-06-03 08:35] VITALS: BP 137/77; PULSE 73; TEMP 97.7
--- NOTE | 2018-06-03 09:14 | CP.PCM.PN ---
Subjective - Date & Time of Evaluation Date of Evaluation: 06/02/18 Time of Evaluation: 18:00 - Subjective Subjective: Patient seen and evaluated Objective - Vital Signs/Intake and Output Vital Signs (last 24 hours): Temp Pulse Resp BP Pulse Ox 97.7 F 73 20 137/77 98 06/03/18 07:55 06/03/18 07:55 06/03/18 07:55 06/03/18 07:55 06/03/18 07:55 Intake and Output: 06/03/18 06/03/18 06:59 18:59 Intake Total 240 Balance 240 - Medications Medications: Current Medications Albuterol/Ipratropium (Duoneb 3 Mg/0.5 Mg (3 Ml) Ud) 3 ml INH RQ6 PRN PRN Reason: Shortness of Breath Last Admin: 06/03/18 07:20 Dose: 3 ml Aspirin (Ecotrin) 81 mg PO DAILY [facility] Last Admin: 06/02/18 10:22 Dose: 81 mg Chlordiazepoxide (Librium) 25 mg PO Q4H PRN PRN Reason: Agitation Last Admin: 05/31/18 00:09 Dose: 25 mg Enoxaparin Sodium (Lovenox) 30 mg SC DAILY [facility] Last Admin: 06/02/18 10:22 Dose: 30 mg Escitalopram Oxalate (Lexapro) 10 mg PO DAILY [facility] Last Admin: 06/02/18 10:22 Dose: 10 mg Folic Acid (Folic Acid) 1 mg PO DAILY [facility] Last Admin: 06/02/18 10:22 Dose: 1 mg Losartan Potassium (Cozaar) 50 mg PO DAILY [facility] Last Admin: 06/02/18 10:22 Dose: 50 mg Metronidazole (Flagyl) 500 mg PO Q8 [facility] Last Admin: 06/03/18 05:43 Dose: 500 mg Multivitamins/Minerals (Therapeutic-M Tab) 1 tab PO DAILY [facility] Last Admin: 06/02/18 10:22 Dose: 1 tab Pantoprazole Sodium (Protonix Ec Tab) 40 mg PO DAILY [facility] Last Admin: 06/02/18 10:22 Dose: 40 mg Tamsulosin HCl (Flomax) 0.4 mg PO HS [facility] Last Admin: 06/02/18 21:22 Dose: 0.4 mg Thiamine HCl (Vitamin B1 Tab) 100 mg PO DAILY [facility] Last Admin: 07/18/18 10:22 Dose: 100 mg Topiramate (Topamax) 50 mg PO BID [facility] Last Admin: 06/02/18 17:22 Dose: 50 mg - Labs Labs: 05/30/18 12:04 05/30/18 12:04
--- NOTE | 2018-06-03 09:16 | CP.PCM.PN ---
Subjective - Date & Time of Evaluation Date of Evaluation: 06/02/18 Time of Evaluation: 17:00 - Subjective Subjective: Patient seen and evaluated Objective - Vital Signs/Intake and Output Vital Signs (last 24 hours): Temp Pulse Resp BP Pulse Ox 97.7 F 73 20 137/77 98 06/03/18 07:55 06/03/18 07:55 06/03/18 07:55 06/03/18 07:55 06/03/18 07:55 Intake and Output: 06/03/18 06/03/18 06:59 18:59 Intake Total 240 Balance 240 - Medications Medications: Current Medications Albuterol/Ipratropium (Duoneb 3 Mg/0.5 Mg (3 Ml) Ud) 3 ml INH RQ6 PRN PRN Reason: Shortness of Breath Last Admin: 06/03/18 07:20 Dose: 3 ml Aspirin (Ecotrin) 81 mg PO DAILY [facility] Last Admin: 06/02/18 10:22 Dose: 81 mg Chlordiazepoxide (Librium) 25 mg PO Q4H PRN PRN Reason: Agitation Last Admin: 05/31/18 00:09 Dose: 25 mg Enoxaparin Sodium (Lovenox) 30 mg SC DAILY [facility] Last Admin: 06/02/18 10:22 Dose: 30 mg Escitalopram Oxalate (Lexapro) 10 mg PO DAILY [facility] Last Admin: 06/02/18 10:22 Dose: 10 mg Folic Acid (Folic Acid) 1 mg PO DAILY [facility] Last Admin: 06/02/18 10:22 Dose: 1 mg Losartan Potassium (Cozaar) 50 mg PO DAILY [facility] Last Admin: 06/02/18 10:22 Dose: 50 mg Metronidazole (Flagyl) 500 mg PO Q8 [facility] Last Admin: 06/03/18 05:43 Dose: 500 mg Multivitamins/Minerals (Therapeutic-M Tab) 1 tab PO DAILY [facility] Last Admin: 06/02/18 10:22 Dose: 1 tab Pantoprazole Sodium (Protonix Ec Tab) 40 mg PO DAILY [facility] Last Admin: 06/02/18 10:22 Dose: 40 mg Tamsulosin HCl (Flomax) 0.4 mg PO HS [facility] Last Admin: 06/02/18 21:22 Dose: 0.4 mg Thiamine HCl (Vitamin B1 Tab) 100 mg PO DAILY [facility] Last Admin: 07/18/18 10:22 Dose: 100 mg Topiramate (Topamax) 50 mg PO BID [facility] Last Admin: 06/02/18 17:22 Dose: 50 mg - Labs Labs: 05/30/18 12:04 05/30/18 12:04
[2018-06-03] MEDS: Enoxaparin 30 mg Syringe SC SCH (09:39)
[2018-06-03] MEDS: Pantoprazole 40 mg EC Tab PO SCH (09:43)
[2018-06-03] MEDS: Multivitamin With Minerals Tab PO SCH (11:40)
--- NOTE | 2018-06-03 13:00 | CP.PCM.PN ---
Subjective - Date & Time of Evaluation Date of Evaluation: 06/03/18 Time of Evaluation: 12:57 - Subjective Subjective: PATIENT WAS ADMITTED FOR ABD PAIN AND ETOH AAOX3 / DENIES CHEST PAIN/ SOB / NAUSEA / OR VOMITING NO SIGN OF DISTRESS NOTED Objective - Vital Signs/Intake and Output Vital Signs (last 24 hours): Temp Pulse Resp BP Pulse Ox 97.7 F 73 20 137/77 98 06/03/18 07:55 06/03/18 07:55 06/03/18 07:55 06/03/18 07:55 06/03/18 07:55 Intake and Output: 06/03/18 06/03/18 06:59 18:59 Intake Total 240 Balance 240 - Medications Medications: Current Medications Albuterol/Ipratropium (Duoneb 3 Mg/0.5 Mg (3 Ml) Ud) 3 ml INH RQ6 PRN PRN Reason: Shortness of Breath Last Admin: 06/03/18 07:20 Dose: 3 ml Aspirin (Ecotrin) 81 mg PO DAILY [facility] Last Admin: 06/03/18 09:37 Dose: 81 mg Chlordiazepoxide (Librium) 25 mg PO Q4H PRN PRN Reason: Agitation Last Admin: 06/03/18 11:39 Dose: 25 mg Enoxaparin Sodium (Lovenox) 30 mg SC DAILY [facility] Last Admin: 06/03/18 09:39 Dose: 30 mg Escitalopram Oxalate (Lexapro) 10 mg PO DAILY [facility] Last Admin: 06/03/18 09:39 Dose: 10 mg Folic Acid (Folic Acid) 1 mg PO DAILY [facility] Last Admin: 06/03/18 09:38 Dose: 1 mg Losartan Potassium (Cozaar) 50 mg PO DAILY [facility] Last Admin: 06/03/18 09:37 Dose: 50 mg Metronidazole (Flagyl) 500 mg PO Q8 [facility] Last Admin: 06/03/18 05:43 Dose: 500 mg Multivitamins/Minerals (Therapeutic-M Tab) 1 tab PO DAILY [facility] Last Admin: 06/03/18 11:40 Dose: 1 tab Pantoprazole Sodium (Protonix Ec Tab) 40 mg PO DAILY [facility] Last Admin: 06/03/18 09:43 Dose: 40 mg Tamsulosin HCl (Flomax) 0.4 mg PO HS [facility] Last Admin: 06/02/18 21:22 Dose: 0.4 mg Thiamine HCl (Vitamin B1 Tab) 100 mg PO DAILY [facility] Last Admin: 06/03/18 09:43 Dose: 100 mg Topiramate (Topamax) 50 mg PO BID [facility] Last Admin: 06/03/18 09:40 Dose: 50 mg - Labs Labs: 05/30/18 12:04 05/30/18 12:04 Assessment and Plan - Assessment and Plan (Free Text) Assessment: PATIENT SEEN AND EXAMINED AT THE BEDSIDE LUNG SOUND CLEAR NAM AFEBRILE/ VITAL SIGN STABLE/ NO TREMOR NOTED DISCUSS WITH DR VASQUES WHO CLEAR FOR DC FOLLOW UP WITH DR VASQUES IN 1 WEEK AT HIS OFFICE ---CALL FOR APPOINTMENT FOLLOW UP WITH ORTHO DR CORTEZ AT HIS OFFICE ---CALL FOR APPOINTMENT CONTINUE ALL YOUR HOME MEDICATION ORDER ACTIVITY TOLERATED CALL DR VASQUES OR GO TO THE EMERGENCY ROOM IF SYMPTOM RETURN OR WORSENING DISCUSS WITH PATIENT WHO AGREE AND VERBALIZED UNDERSTANDING
--- NOTE | 2018-06-04 13:18 | CP.PCM.DIS ---
Provider - Provider Date of Admission: 05/30/18 14:22 Attending physician: Dennys Vasquez MD Time Spent in preparation of Discharge (in minutes): 45 Hospital Course - Lab Results Lab Results: Most Recent Lab Values WBC 4.4 K/uL (4.8-10.8) L 05/30/18 12:04 RBC 4.77 Mil/uL (4.40-5.90) 05/30/18 12:04 Hgb 12.3 g/dL (12.0-18.0) D 05/30/18 12:04 Hct 38.2 % (35.0-51.0) 05/30/18 12:04 MCV 80.2 fL (80.0-94.0) 05/30/18 12:04 MCH 25.8 pg (27.0-31.0) L 05/30/18 12:04 MCHC 32.2 g/dL (33.0-37.0) L 05/30/18 12:04 RDW 20.3 % (11.5-14.5) H 05/30/18 12:04 Plt Count 187 K/uL (130-400) 05/30/18 12:04 MPV 8.4 fL (7.2-11.7) 05/30/18 12:04 Neut % (Auto) 64.7 % (50.0-75.0) 05/30/18 12:04 Lymph % (Auto) 20.8 % (20.0-40.0) 05/30/18 12:04 Pierce % (Auto) 12.1 % (0.0-10.0) H 05/30/18 12:04 Eos % (Auto) 1.1 % (0.0-4.0) 05/30/18 12:04 Baso % (Auto) 1.3 % (0.0-2.0) 05/30/18 12:04 Neut # (Auto) 2.8 K/uL (1.8-7.0) 05/30/18 12:04 Lymph # (Auto) 0.9 K/uL (1.0-4.3) L 05/30/18 12:04 Pierce # (Auto) 0.5 K/uL (0.0-0.8) 05/30/18 12:04 Eos # (Auto) 0.0 K/uL (0.0-0.7) 05/30/18 12:04 Baso # (Auto) 0.1 K/uL (0.0-0.2) 05/30/18 12:04 Sodium 143 mmol/L (132-148) 05/30/18 12:04 Potassium 3.6 mmol/L (3.6-5.2) 05/30/18 12:04 Chloride 104 mmol/L (98-107) 05/30/18 12:04 Carbon Dioxide 25 mmol/L (22-30) 05/30/18 12:04 Anion Gap 18 (10-20) 05/30/18 12:04 BUN 6 mg/dL (9-20) L 05/30/18 12:04 Creatinine 0.8 mg/dL (0.8-1.5) 05/30/18 12:04 Est GFR ( Amer) > 60 05/30/18 12:04 Est GFR (Non-Af Amer) > 60 05/30/18 12:04 POC Glucose (mg/dL) 133 mg/dL (65-110) H 05/31/18 11:15 Random Glucose 109 mg/dL (75-110) 05/30/18 12:04 Calcium 8.9 mg/dl (8.6-10.4) 05/30/18 12:04 Total Bilirubin 0.5 mg/dL (0.2-1.3) 05/30/18 12:04 AST 53 U/L (17-59) 05/30/18 12:04 ALT 40 U/L (21-72) 05/30/18 12:04 Alkaline Phosphatase 92 U/L (38-126) 05/30/18 12:04 Troponin I 0.0210 ng/mL (0.00-0.120) 05/30/18 12:04 Total Protein 7.1 g/dL (6.3-8.3) 05/30/18 12:04 Albumin 3.7 g/dL (3.5-5.0) 05/30/18 12:04 Globulin 3.4 gm/dL (2.2-3.9) 05/30/18 12:04 Albumin/Globulin Ratio 1.1 (1.0-2.1) 05/30/18 12:04 Lipase 265 U/L (23-300) 05/30/18 12:04 Alcohol, Quantitative 65 mg/dl (0-10) H 05/30/18 12:04 - Hospital Course Hospital Course: Pt is for discharge today, out of delirium tremens, feeling better, no shaking, pt advised to avoid alcohol and follow up out patient Discharge Exam - Head Exam Head Exam: ATRAUMATIC - Eye Exam Eye Exam: EOMI, Normal appearance, PERRL Pupil Exam: NORMAL ACCOMODATION, PERRL - Respiratory Exam Respiratory Exam: Clear to PA & Lateral, NORMAL BREATHING PATTERN - Cardiovascular Exam Cardiovascular Exam: REGULAR RHYTHM, +S1, +S2 - GI/Abdominal Exam GI & Abdominal Exam: Normal Bowel Sounds - Rectal Exam Rectal Exam: Deferred Discharge Plan - Follow Up Plan Condition: FAIR Disposition: HOME/ ROUTINE Instructions: Gastrointestinal Bleeding (DC), Rotator Cuff Injury (DC), Effects of Alcohol on Your Health Additional Instructions: FOLLOW UP WITH DR VASQUEZ IN 1 WEEK AT HIS OFFICE ---CALL FOR APPOINTMENT FOLLOW UP WITH ORTHO DR CORTEZ AT HIS OFFICE ---CALL FOR APPOINTMENT CONTINUE ALL YOUR HOME MEDICATION ORDER ACTIVITY TOLERATED CALL DR VASQUEZ OR GO TO THE EMERGENCY ROOM IF SYMPTOM RETURN OR WORSENING Referrals: Bill Cortez MD [Staff Provider] - Dennys Vasquez MD [Staff Provider] -
--- NOTE | 2018-06-05 11:32 | CARD ---
APPROVED REPORT Date of service: 05/30/2018 EKG Measurement Heart [id number] <Conclusion> Normal sinus rhythm Cannot rule out Anteroseptal infarct, age undetermined ST & T wave abnormality, consider lateral ischemia Abnormal ECG
== END 2018-06-03 13:59 | disposition home or self-care (01) | DRG 392 ==
LOC: C.ER 11:19 → C.9E 14:22 → C.3T 18:37 → C.9E 19:08 → C.6T 23:19
PROVIDERS: ADMIT Internal Medicine; ATTEND Internal Medicine
DX: R10.9 Unspecified abdominal pain (principal); K92.2 Gastrointestinal hemorrhage, unspecified; F10.20 Alcohol dependence, uncomplicated; R07.89 Other chest pain; M75.101 Unspecified rotator cuff tear or rupture of right shoulder, not specified as traumatic; E11.9 Type 2 diabetes mellitus without complications; G89.29 Other chronic pain; I10 Essential (primary) hypertension; I25.10 Atherosclerotic heart disease of native coronary artery without angina pectoris; J43.9 Emphysema, unspecified; M19.011 Primary osteoarthritis, right shoulder; J45.909 Unspecified asthma, uncomplicated; F31.9 Bipolar disorder, unspecified; G47.30 Sleep apnea, unspecified; N40.0 Benign prostatic hyperplasia without lower urinary tract symptoms; R29.6 Repeated falls; F17.210 Nicotine dependence, cigarettes, uncomplicated; Y90.3 Blood alcohol level of 60-79 mg/100 ml; E78.5 Hyperlipidemia, unspecified; E78.00 Pure hypercholesterolemia, unspecified; Z87.01 Personal history of pneumonia (recurrent); Z95.1 Presence of aortocoronary bypass graft; Z95.5 Presence of coronary angioplasty implant and graft

== ENCOUNTER 2018-07-02 17:45 | Emergency (ER) | payer OTHER, MEDICAID ==
[2018-07-02 17:45] VITALS: BMI 27.2
--- NOTE | 2018-07-02 18:26 | C.PDOC ---
History Of Present Illness 62 year old male brought in by ambulance from home due to alcohol intoxication. Patient admits to drinking alcohol today and denies any acute complaints at this time. Chief Complaint (Nursing): Substance Abuse History Per: Patient History/Exam Limitations: no limitations Onset/Duration Of Symptoms: Hrs Current Symptoms Are (Timing): Still Present Additional History Per: EMS Past Medical History Reviewed: Historical Data, Nursing Documentation, Vital Signs Vital Signs: Last Vital Signs Temp 98 F 07/02/18 19:49 Pulse 68 07/02/18 19:49 Resp 18 07/02/18 19:49 BP 136/72 07/02/18 19:49 Pulse Ox 96 07/02/18 21:34 - Medical History PMH: Anxiety, Arthritis, Asthma, Benign Prostatic Hyperplasia, Bipolar Disorder , Bronchitis, CAD, Cardia Arrhythmia, COPD, Depression, Diabetes, Emphysema, Gastritis, Hepatitis (PATIENT STATED HE HAS HEPATITIS BUT COULD NOT RECALL WHICH ONE), HTN, Hypercholesterolemia, Hyperlipidemia, Migraine, Pancreatitis, Pneumonia, Seizures (ETOH related), Sleep Apnea Denies: Anemia, Diverticulitis, Fractures, HIV, Hyperthyroidism, Hypothyroidism, Pulmonary Embolism, Chronic Kidney Disease, Sickle Cell Disease , Sexually Transmitted Disease Surgical History: CABG ((quadruple bypass) 2010), Coronary Stent - [facility] Procedures ALCOHOL DETOXIFICATION (03/12/15) CORONAR ARTERIOGR-2 CATH (07/24/15) CORONARY ARTERY STENT INSERTION [id number] (07/24/15) DETOXIFICATION SERVICES FOR SUBSTANCE ABUSE TREATMENT (04/21/18) ESOPHAGOGASTRODUODENOSCOPY [EGD] W/CLOSED BIOPSY (05/21/13) EXCISION OF DESCENDING COLON, ENDO, DIAGN (06/01/17) EXCISION OF STOMACH, ENDO, DIAGN (06/01/17) GROUP PSYCHOTHERAPY (02/23/18) INDIV PSYCHOTHERAPY FOR SUBSTANCE ABUSE TREATMENT, SUPPORT (11/09/17) INDIV PSYCHOTHERAPY FOR SUBSTANCE ABUSE, COGNITIV BEHAVIORAL (11/09/17) INDIV PSYCHOTHERAPY FOR SUBSTANCE ABUSE, MOTIVATION ENHANCE (11/29/17) INDIV PSYCHOTHERAPY FOR SUBSTANCE ABUSE, PSYCHOEDUCATION (11/29/17) INDIVID PSYCHOTHERAP NEC (11/04/14) INDIVIDUAL PSYCHOTHERAPY, BEHAVIORAL (02/23/18) INDIVIDUAL PSYCHOTHERAPY, COGNITIVE-BEHAVIORAL (11/19/16) INDIVIDUAL PSYCHOTHERAPY, SUPPORTIVE (10/02/16) INSERTION OF ONE VASCULAR STENT (07/24/15) INTRODUCE OF OTH THERAP SUBST INTO RESP TRACT, VIA OPENING (02/05/18) IRRIGATION OF EAR (05/23/15) LEFT HEART CARDIAC CATH (07/19/15) LT HEART ANGIOCARDIOGRAM (07/19/15) OTHER GROUP THERAPY (11/04/14) PACKED CELL TRANSFUSION (05/21/13) PERCUTANEOUS TRANSLUMINAL CORONARY ANGIOPLASTY [PTCA] (07/24/15) PROCEDURE ON SINGLE VESSEL (07/24/15) PSYCHIAT DRUG THERAP NEC (11/04/14) RT HEART ANGIOCARDIOGRAM (07/22/15) RT HEART CARDIAC CATH (07/22/15) VACCINATION NEC (09/28/14) Family History: States: No Known Family Hx - Social History Hx Tobacco Use: Yes Hx Alcohol Use: Yes Hx Substance Use: No - Immunization History Hx Tetanus Toxoid Vaccination: Yes Hx Influenza Vaccination: No Hx Pneumococcal Vaccination: Yes Review Of Systems Except As Marked, All Systems Reviewed And Found Negative. Constitutional: Negative for: Fever, Chills Eyes: Negative for: Vision Change Cardiovascular: Negative for: Chest Pain Respiratory: Negative for: Shortness of Breath Gastrointestinal: Negative for: Nausea, Vomiting Neurological: Negative for: Weakness, Numbness Physical Exam - Physical Exam Appears: Well, Non-toxic, No Acute Distress, Other (intoxicated; alcohol on breath) Skin: Warm, Dry, No Rash Head: Atraumatic, Normacephalic Eye(s): bilateral: Normal Inspection Oral Mucosa: Moist Neck: Normal ROM, Supple Chest: Symmetrical Cardiovascular: Rhythm Regular, No Murmur Respiratory: Normal Breath Sounds, No Rales, No Rhonchi, No Wheezing Gastrointestinal/Abdominal: Soft, No Tenderness Extremity: Bilateral: Atraumatic, Normal Color And Temperature, Normal ROM Neurological/Psych: Oriented x3, Other (slurred speech) ED Course And Treatment O2 Sat by Pulse Oximetry: 96 (RA) Pulse Ox Interpretation: Normal Reevaluation Time: 19:50 (argumentative, verbally abusive w staff and other patients. Pt eloped from ED with walking device without assistance.) Medical Decision Making Medical Decision Making: Plan: -Glucose POC lab -Pending sobriety alcoholism, persistent. Disposition Doctor Will See Patient In The: Office Counseled Patient/Family Regarding: Studies Performed, Diagnosis - Disposition Disposition: ELOPEMENT - ER ONLY Disposition Time: 19:49 Condition: GOOD Instructions: Alcohol Use - When Is Drinking a Problem? Forms: [facility] (Portuguese) - Clinical Impression Clinical Impression: Alcohol intoxication - Scribe Statement The provider has reviewed the documentation as recorded by the Hilarioibmiquel Zarate Provider Attestation: All medical record entries made by the Hilarioibmiquel were at my direction and personally dictated by me. I have reviewed the chart and agree that the record accurately reflects my personal performance of the history, physical exam, medical decision making, and the department course for this patient. I have also personally directed, reviewed, and agree with the discharge instructions and disposition.
[2018-07-02 19:50] VITALS: BP 136/72; PULSE 68; RESP 18; TEMP 98
[2018-07-02 21:35] VITALS: O2SAT 96
== END 2018-07-02 19:50 | disposition left against medical advice (07) ==
LOC: C.ER 17:45
DX: F10.129 Alcohol abuse with intoxication, unspecified (principal); F17.210 Nicotine dependence, cigarettes, uncomplicated; E11.9 Type 2 diabetes mellitus without complications

== ENCOUNTER 2018-07-03 16:38 | Emergency (ER) | payer OTHER, MEDICAID ==
[2018-07-03 16:39] VITALS: BMI 27.2
--- NOTE | 2018-07-03 18:17 | C.PDOC ---
History Of Present Illness 62 y/o male presents to ED with alcohol intoxication. Pt is well known to ED for multiple past visits for similar. Denies any active physical complaints at this time. Chief Complaint (Nursing): Abdominal Pain History Per: Patient History/Exam Limitations: no limitations Past Medical History Reviewed: Historical Data, Nursing Documentation, Vital Signs Vital Signs: Last Vital Signs Temp 98 F 07/03/18 18:46 Pulse 77 07/03/18 18:46 Resp 18 07/03/18 18:46 BP 126/75 07/03/18 18:46 Pulse Ox 96 07/03/18 18:46 - Medical History PMH: Anxiety, Arthritis, Asthma, Benign Prostatic Hyperplasia, Bipolar Disorder , Bronchitis, CAD, Cardia Arrhythmia, COPD, Depression, Diabetes, Emphysema, Gastritis, Hepatitis (PATIENT STATED HE HAS HEPATITIS BUT COULD NOT RECALL WHICH ONE), HTN, Hypercholesterolemia, Hyperlipidemia, Migraine, Pancreatitis, Pneumonia, Seizures (ETOH related), Sleep Apnea Denies: Anemia, Diverticulitis, Fractures, HIV, Hyperthyroidism, Hypothyroidism, Pulmonary Embolism, Chronic Kidney Disease, Sickle Cell Disease , Sexually Transmitted Disease Surgical History: CABG ((quadruple bypass) 2010), Coronary Stent - [facility] Procedures ALCOHOL DETOXIFICATION (03/12/15) CORONAR ARTERIOGR-2 CATH (07/24/15) CORONARY ARTERY STENT INSERTION [id number] (07/24/15) DETOXIFICATION SERVICES FOR SUBSTANCE ABUSE TREATMENT (04/21/18) ESOPHAGOGASTRODUODENOSCOPY [EGD] W/CLOSED BIOPSY (05/21/13) EXCISION OF DESCENDING COLON, ENDO, DIAGN (06/01/17) EXCISION OF STOMACH, ENDO, DIAGN (06/01/17) GROUP PSYCHOTHERAPY (02/23/18) INDIV PSYCHOTHERAPY FOR SUBSTANCE ABUSE TREATMENT, SUPPORT (11/09/17) INDIV PSYCHOTHERAPY FOR SUBSTANCE ABUSE, COGNITIV BEHAVIORAL (11/09/17) INDIV PSYCHOTHERAPY FOR SUBSTANCE ABUSE, MOTIVATION ENHANCE (11/29/17) INDIV PSYCHOTHERAPY FOR SUBSTANCE ABUSE, PSYCHOEDUCATION (11/29/17) INDIVID PSYCHOTHERAP NEC (11/04/14) INDIVIDUAL PSYCHOTHERAPY, BEHAVIORAL (02/23/18) INDIVIDUAL PSYCHOTHERAPY, COGNITIVE-BEHAVIORAL (11/19/16) INDIVIDUAL PSYCHOTHERAPY, SUPPORTIVE (10/02/16) INSERTION OF ONE VASCULAR STENT (07/24/15) INTRODUCE OF OTH THERAP SUBST INTO RESP TRACT, VIA OPENING (02/05/18) IRRIGATION OF EAR (05/23/15) LEFT HEART CARDIAC CATH (07/19/15) LT HEART ANGIOCARDIOGRAM (07/19/15) OTHER GROUP THERAPY (11/04/14) PACKED CELL TRANSFUSION (05/21/13) PERCUTANEOUS TRANSLUMINAL CORONARY ANGIOPLASTY [PTCA] (07/24/15) PROCEDURE ON SINGLE VESSEL (07/24/15) PSYCHIAT DRUG THERAP NEC (11/04/14) RT HEART ANGIOCARDIOGRAM (07/22/15) RT HEART CARDIAC CATH (07/22/15) VACCINATION NEC (09/28/14) Family History: States: Unknown Family Hx - Social History Hx Tobacco Use: Yes Hx Alcohol Use: Yes Hx Substance Use: No - Immunization History Hx Tetanus Toxoid Vaccination: Yes Hx Influenza Vaccination: No Hx Pneumococcal Vaccination: Yes Review Of Systems Except As Marked, All Systems Reviewed And Found Negative. Constitutional: Negative for: Fever, Chills Cardiovascular: Negative for: Chest Pain Respiratory: Negative for: Shortness of Breath Gastrointestinal: Negative for: Nausea, Vomiting, Abdominal Pain Neurological: Negative for: Headache, Dizziness Physical Exam - Physical Exam Appears: Non-toxic, No Acute Distress Skin: Normal Color, Warm, Dry Head: Atraumatic, Normacephalic Eye(s): bilateral: Normal Inspection Oral Mucosa: Moist, Other (EtOH on breath) Neck: Supple Cardiovascular: Rhythm Regular Respiratory: Normal Breath Sounds, No Rales, No Rhonchi, No Wheezing Gastrointestinal/Abdominal: Soft, No Tenderness Extremity: Normal ROM Neurological/Psych: Oriented x3, Normal Speech ED Course And Treatment O2 Sat by Pulse Oximetry: 98 (RA) Pulse Ox Interpretation: Normal Medical Decision Making Medical Decision Making: On re-eval, pt is awake, alert, and oriented x 3. Patient is ambulatory with steady gait, and is clinically sober. Disposition - Disposition Referrals: [facility] [Outside] [facility] [Outside] Disposition: HOME/ ROUTINE Disposition Time: 17:00 Condition: IMPROVED Additional Instructions: CALISTA JIMENEZ, thank you for letting us take care of you today. The emergency medical care you received today was directed at your acute symptoms. If you were prescribed any medication, please fill it and take as directed. It may take several days for your symptoms to resolve. Return to the Emergency Department if your symptoms worsen, do not improve, or if you have any other problems. Please contact your doctor or call one of the physicians/clinics you have been referred to that are listed on the Patient Visit Information form that is included in your discharge packet. Bring any paperwork you were given at discharge with you along with any medications you are taking to your follow up visit. Our treatment cannot replace ongoing medical care by a primary care provider outside of the emergency department. Thank you for allowing the [facility] team to be part of your care today. Do not drink too much alcohol at one time. Follow up with your doctor or our clinic in 3-5 days for outpatient care. Instructions: Alcohol Abuse and Alcoholism (DC) Forms: [facility] (Maltese) - Clinical Impression Clinical Impression: Alcohol dependence - Scribe Statement The provider has reviewed the documentation as recorded by the Scribe KP All medical record entries made by the Scribe were at my direction and personally dictated by me. I have reviewed the chart and agree that the record accurately reflects my personal performance of the history, physical exam, medical decision making, and the department course for this patient. I have also personally directed, reviewed, and agree with the discharge instructions and disposition.
[2018-07-03 18:48] VITALS: BP 126/75; PULSE 77; RESP 18; TEMP 98
[2018-07-03 21:19] VITALS: O2SAT 98
== END 2018-07-03 18:47 | disposition home or self-care (01) ==
LOC: C.ER 16:38
DX: F10.229 Alcohol dependence with intoxication, unspecified (principal); Y90.9 Presence of alcohol in blood, level not specified

== ENCOUNTER 2018-07-05 17:31 | Inpatient (IN) | payer OTHER ==
[2018-07-05 17:32] VITALS: BMI 27.2
--- NOTE | 2018-07-05 19:04 | RAD ---
HISTORY: Detox/Psy COMPARISON: Chest x-ray performed 05/30/18 TECHNIQUE: Chest, one view. FINDINGS: LUNGS: Mild pulmonary venous congestion. No focal consolidation. Please note that chest x-ray has limited sensitivity for the detection of pulmonary masses. PLEURA: No significant pleural effusion identified. No definite pneumothorax . CARDIOVASCULAR: Cardiomegaly. Median sternotomy wires with evidence of CABG. Atherosclerotic calcifications of the aorta. OSSEOUS STRUCTURES: Degenerative changes. VISUALIZED UPPER ABDOMEN: Unremarkable. OTHER FINDINGS: None. IMPRESSION: Mild pulmonary venous congestion. Cardiomegaly.
--- NOTE | 2018-07-05 19:11 | C.PDOC ---
History Of Present Illness 62 year old male present to the emergency department requesting detox. Patient states the last time he drank was last night. As of today, patient reports tremors, chest pain, and SOB. He states he had similar symptoms before with past alcohol withdrawal. Time Seen by Provider: 07/05/18 18:06 Chief Complaint (Nursing): Substance Abuse History Per: Patient History/Exam Limitations: no limitations Past Medical History Reviewed: Historical Data, Nursing Documentation, Vital Signs Vital Signs: Last Vital Signs Temp 99.2 F 07/05/18 18:14 Pulse 82 07/05/18 23:34 Resp 18 07/05/18 23:34 BP 183/95 H 07/05/18 23:34 Pulse Ox 96 07/05/18 23:34 - Medical History PMH: Anxiety, Arthritis, Asthma, Benign Prostatic Hyperplasia, Bipolar Disorder , Bronchitis, CAD, Cardia Arrhythmia, COPD, Depression, Diabetes, Emphysema, Gastritis, Hepatitis (PATIENT STATED HE HAS HEPATITIS BUT COULD NOT RECALL WHICH ONE), HTN, Hypercholesterolemia, Hyperlipidemia, Migraine, Pancreatitis, Pneumonia, Seizures (ETOH related), Sleep Apnea Denies: Anemia, Diverticulitis, Fractures, HIV, Hyperthyroidism, Hypothyroidism, Pulmonary Embolism, Chronic Kidney Disease, Sickle Cell Disease , Sexually Transmitted Disease Surgical History: CABG ((quadruple bypass) 2010), Coronary Stent - [facility] Procedures ALCOHOL DETOXIFICATION (03/12/15) CORONAR ARTERIOGR-2 CATH (07/24/15) CORONARY ARTERY STENT INSERTION [id number] (07/24/15) DETOXIFICATION SERVICES FOR SUBSTANCE ABUSE TREATMENT (04/21/18) ESOPHAGOGASTRODUODENOSCOPY [EGD] W/CLOSED BIOPSY (05/21/13) EXCISION OF DESCENDING COLON, ENDO, DIAGN (06/01/17) EXCISION OF STOMACH, ENDO, DIAGN (06/01/17) GROUP PSYCHOTHERAPY (02/23/18) INDIV PSYCHOTHERAPY FOR SUBSTANCE ABUSE TREATMENT, SUPPORT (11/09/17) INDIV PSYCHOTHERAPY FOR SUBSTANCE ABUSE, COGNITIV BEHAVIORAL (11/09/17) INDIV PSYCHOTHERAPY FOR SUBSTANCE ABUSE, MOTIVATION ENHANCE (11/29/17) INDIV PSYCHOTHERAPY FOR SUBSTANCE ABUSE, PSYCHOEDUCATION (11/29/17) INDIVID PSYCHOTHERAP NEC (11/04/14) INDIVIDUAL PSYCHOTHERAPY, BEHAVIORAL (02/23/18) INDIVIDUAL PSYCHOTHERAPY, COGNITIVE-BEHAVIORAL (11/19/16) INDIVIDUAL PSYCHOTHERAPY, SUPPORTIVE (10/02/16) INSERTION OF ONE VASCULAR STENT (07/24/15) INTRODUCE OF OTH THERAP SUBST INTO RESP TRACT, VIA OPENING (02/05/18) IRRIGATION OF EAR (05/23/15) LEFT HEART CARDIAC CATH (07/19/15) LT HEART ANGIOCARDIOGRAM (07/19/15) OTHER GROUP THERAPY (11/04/14) PACKED CELL TRANSFUSION (05/21/13) PERCUTANEOUS TRANSLUMINAL CORONARY ANGIOPLASTY [PTCA] (07/24/15) PROCEDURE ON SINGLE VESSEL (07/24/15) PSYCHIAT DRUG THERAP NEC (11/04/14) RT HEART ANGIOCARDIOGRAM (07/22/15) RT HEART CARDIAC CATH (07/22/15) VACCINATION NEC (09/28/14) Family History: States: No Known Family Hx - Social History Hx Tobacco Use: Yes Hx Alcohol Use: Yes Hx Substance Use: No - Immunization History Hx Tetanus Toxoid Vaccination: Yes Hx Influenza Vaccination: No Hx Pneumococcal Vaccination: Yes Review Of Systems Constitutional: Negative for: Fever, Chills Cardiovascular: Positive for: Chest Pain Respiratory: Positive for: Shortness of Breath Gastrointestinal: Negative for: Nausea, Vomiting Musculoskeletal: Positive for: Other (Hand tremors) Neurological: Negative for: Weakness, Numbness Physical Exam - Physical Exam Appears: Non-toxic, No Acute Distress Skin: Normal Color, Warm, Diaphoretic Head: Atraumatic, Normacephalic Eye(s): bilateral: Normal Inspection Oral Mucosa: Moist Tongue: Other (Tongue fasciculation) Neck: Supple Chest: Symmetrical Cardiovascular: Rhythm Regular, Other (Tachycardic) Respiratory: Normal Breath Sounds, No Rales, No Rhonchi, No Wheezing Gastrointestinal/Abdominal: Soft, No Tenderness Extremity: Bilateral: Atraumatic Neurological/Psych: Oriented x3, Normal Speech ED Course And Treatment - Laboratory Results Result Diagrams: 07/05/18 19:26 07/05/18 19:26 O2 Sat by Pulse Oximetry: 98 (RA) Pulse Ox Interpretation: Normal - Other Rad Chest X-Ray X-Ray: Read By Radiologist Interpretation: FINDINGS: LUNGS: Mild pulmonary venous congestion. No focal consolidation. Please note that chest x-ray has limited sensitivity for the detection of pulmonary masses. PLEURA: No significant pleural effusion identified. No definite pneumothorax . CARDIOVASCULAR: Cardiomegaly. Median sternotomy wires with evidence of CABG. Atherosclerotic calcifications of the aorta. OSSEOUS STRUCTURES: Degenerative changes. VISUALIZED UPPER ABDOMEN: Unremarkable. OTHER FINDINGS: None. IMPRESSION: Mild pulmonary venous congestion. Cardiomegaly. Medical Decision Making Medical Decision Making: Impression: Alcohol abuse Plan: -EKG -Labs -Chest X-Ray -Urinalysis -Ativan Patient given 2mg ativan ivp for EtOH withdrawal symptoms. On re-eval patient still hypertensive to the 200's systolic, but less tremulous. Additional 2mg ativan IVP given. Librium 100mg given. Patient also given home dose of 50mg cozaar for HTN. BP improved to 183/95. Case discussed with patient's PMD Dr. Vasquez who accepts admission for EtOH withdrawal. Disposition - Disposition Disposition Time: 00:03 Condition: FAIR Forms: [facility] (Slovak) - Clinical Impression Clinical Impression: Alcohol withdrawal - Scribe Statement The provider has reviewed the documentation as recorded by the Dora Zarate Provider Attestation: All medical record entries made by the Dora were at my direction and personally dictated by me. I have reviewed the chart and agree that the record accurately reflects my personal performance of the history, physical exam, medical decision making, and the department course for this patient. I have also personally directed, reviewed, and agree with the discharge instructions and disposition.
[2018-07-05 19:30] LABS: BASO # 0.1 K/uL (0.0-0.2); BASO % 0.6 % (0.0-2.0); EOS % 0.2 % (0.0-4.0); HEMOGLOBIN 12.6 g/dL (12.0-18.0); LYMPH # 1.3 K/uL (1.0-4.3); LYMPH % 13.7 % (20.0-40.0); MEAN CELL VOLUME 79.2 fL (80.0-94.0); MEAN CORPUSCULAR HGB CONC 32.7 g/dL (33.0-37.0); MONO # 0.9 K/uL (0.0-0.8); MONO % 9.9 % (0.0-10.0); NEUT # 7.1 K/uL (1.8-7.0); NEUT % 75.6 % (50.0-75.0); RBC 4.87 Mil/uL (4.40-5.90); RED CELL DISTRIBUTION WIDTH 18.1 % (11.5-14.5)
[2018-07-05 19:47] LABS: ALB/GLOB RATIO 1.2 (1.0-2.1); ALBUMIN 4.4 g/dL (3.5-5.0); ALT/SGPT 32 U/L (21-72); AST/SGOT 43 U/L (17-59); BLOOD UREA NITROGEN 8 mg/dL (9-20); CALCIUM 9.3 mg/dl (8.6-10.4); GFR NON-AFRICAN AMERICAN > 60
[2018-07-05 19:49] LABS: WHITE BLOOD COUNT 9.3 K/uL (4.8-10.8)
[2018-07-05 19:52] LABS: SQUAMOUS EPITHIAL < 1 /hpf (0-5); URINE BILIRUBIN NEGATIVE (NEGATIVE); URINE BLOOD 1+ (NEGATIVE); URINE CLARITY Clear (Clear); URINE COLOR Yellow (YELLOW); URINE GLUCOSE (UA) NORMAL (Normal); URINE LEUKOCYTE ESTERASE NEG Leu/uL (Negative); URINE PROTEIN 2+ mg/dL (NEGATIVE); URINE UROBILINOGEN NORMAL mg/dL (0.2-1.0)
[2018-07-05 20:05] LABS: BARBITURATES, UR NEGATIVE (NEGATIVE); BENZODIAZEPINES, UR NEGATIVE (NEGATIVE); OPIATES, UR NEGATIVE (NEGATIVE); PHENCYCLIDINE, UR NEGATIVE (NEGATIVE)
[2018-07-06] MEDS ORDERED: Albuterol-Ipratrop 3 mg / 0.5 (3 ml) UD INH PRN (00:03)
[2018-07-06] MEDS ORDERED: guaiFENesin 200 mg/10 ml Syrup UD PO PRN (00:07)
[2018-07-06] MEDS: Amoxicillin-Clav 875-125 mg Tab PO SCH ×2 (00:20→10:36)
[2018-07-06] MEDS ORDERED: Amoxicillin-Clav 875-125 mg Tab PO ONE ×2 (00:21→10:31)
[2018-07-06] MEDS ORDERED: Enoxaparin 40 mg Syringe ONE (10:30)
[2018-07-06] MEDS ORDERED: Multivitamin With Minerals Tab PO ONE (10:30)
[2018-07-06] MEDS ORDERED: Pantoprazole 40 mg EC Tab PO ONE (10:31)
[2018-07-06] MEDS: Enoxaparin 40 mg Syringe SC SCH (10:36)
[2018-07-06] MEDS: Multivitamin With Minerals Tab PO SCH (10:37)
[2018-07-06] MEDS: Pantoprazole 40 mg EC Tab PO SCH (10:37)
[2018-07-06] MEDS: Cilostazol 100 mg Tab UD PO SCH ×2 (11:05→17:32)
--- NOTE | 2018-07-06 12:36 | HP ---
Copied To: Dennys Vasquez MD Attending MD: Dennys Vasquez MD CHIEF COMPLAINT: Chest pain times few hours. HISTORY OF PRESENT ILLNESS: This is a 62-year-old white male, well-known to me with history of coronary artery disease, status post CABG, hypertension, hyperlipidemia, chronic heavy smoker with noncompliant with diet, medications, followup and he has prior history of extensive alcohol abuse and he has multiple hospitalizations and states that apparently he is homebound and he drinks, he lives alone, and he is stable depressed. According to the patient, he stopped drinking and as soon as he stopped drinking, he started having palpitations, shaking, weakness, dizziness, and he started having chest pain. He is able to give most of the history and physical. According to the patient, chest pain is dull, substernal, non-radiating, not associated with diaphoresis. He is dizzy. He is weak. He is tremulous. He has cough. He has thick sputum production. He denies any nausea, vomiting or diarrhea. He denies any history of polyuria, polydipsia, polyphagia. He denies any history of dysuria, hematuria or pyuria. He denies drinking anything other than alcohol. He denies any substance abuse. He smokes. He denies any fever, chills, rigors. He denies any history of trauma, fall, or head injury. He denies any history of joint pain and leg pain. He has tingling and numbness in the feet. There is no history of skin rash, itchy eyes. His blood pressure in the emergency room had been high. He denies any skin rash. He denies any sneezing, itchy eyes, or itchy nose. PAST MEDICAL HISTORY: Coronary artery disease, CABG, hypertension, hyperlipidemia, COPD, alcoholism, hospitalization for alcohol detox. CURRENT MEDICATIONS: He is on Topamax, Pletal, Pravachol, , Flomax, Protonix, multivitamin, losartan, Neurontin, folic acid, Lexapro, aspirin, DuoNeb. SOCIAL HISTORY: He smokes and he is alcoholic. PHYSICAL EXAMINATION: GENERAL: An elderly male, he is anxious, he is tremulous . VITAL SIGNS: Blood pressure 226/104, pulse 83, respiratory rate , temperature 99.2. SKIN: Dry, poor turgor. HEENT: Atraumatic and normocephalic. Negative pallor. No acute jaundice. Extraocular movements are intact. NECK: Supple. No JVD. No lymph node. No thyromegaly. No carotid bruits. CHEST WALL: Bilateral symmetrical expansion. A midline scar of old sternotomy, clean and healed. No deformity. CARDIOVASCULAR: S1 and S2 regular. PMI at fifth intercostal space. No heave. No thrill. LUNGS: Bilaterally scattered rhonchi. Clear with normal air entry. ABDOMEN: Soft and nontender. Bowel sounds are positive. RECTAL: Enlarged prostate. EXTREMITIES: No clubbing, cyanosis or edema. CENTRAL NERVOUS SYSTEM: Awake, alert and oriented x3. He is anxious. He is tremulous all the extremities. Power 5/5 x4. Plantars are downgoing. ASSESSMENT: 1. Delirium tremens with alcohol withdrawal. 2. Alcohol withdrawal and major depression. 3. Chest pain, rule out myocardial infarction. 4. Hypertension. PLAN: Admit. Detailed orders written. Seen and examined. We will supplement potassium. Urine tox. Dennys Vasquez MD
[2018-07-06 13:55] VITALS: RESP 20
[2018-07-06] MEDS ORDERED: Potassium Chloride 20 mEq ER Tab PO ONE (14:00)
--- NOTE | 2018-07-06 17:30 | CARD ---
APPROVED REPORT Date of service: 07/05/2018 EKG Measurement Heart [id number] [place] [id number] <Conclusion> Normal sinus rhythm Possible Inferior infarct, age undetermined Non-specifc ST changes Abnormal ECG
--- NOTE | 2018-07-06 22:16 | CP.PCM.PN ---
Objective - Vital Signs/Intake and Output Vital Signs (last 24 hours): Temp Pulse Resp BP Pulse Ox 98.8 F 77 20 148/81 98 07/06/18 15:55 07/06/18 21:13 07/06/18 15:55 07/06/18 15:55 07/06/18 15:55 - Medications Medications: Current Medications Albuterol/Ipratropium (Duoneb 3 Mg/0.5 Mg (3 Ml) Ud) 3 ml INH RQ6 PRN PRN Reason: Shortness of Breath Amoxicillin/Clavulanate Potassium (Augmentin 875 Mg-125 Mg Tab) 1 tab PO Q12 [facility] PRN Reason: Protocol Last Admin: 07/06/18 10:36 Dose: 1 tab Aspirin (Ecotrin) 81 mg PO DAILY [facility] Last Admin: 07/06/18 11:05 Dose: 81 mg Chlordiazepoxide (Librium) 50 mg PO Q4 PRN PRN Reason: Anxiety Cilostazol (Pletal) 100 mg PO BID [facility] Last Admin: 07/06/18 17:32 Dose: 100 mg Enoxaparin Sodium (Lovenox) 40 mg SC DAILY [facility] Last Admin: 07/06/18 10:36 Dose: 40 mg Escitalopram Oxalate (Lexapro) 10 mg PO DAILY [facility] Last Admin: 07/06/18 11:06 Dose: 10 mg Folic Acid (Folic Acid) 1 mg PO DAILY [facility] Last Admin: 07/06/18 10:36 Dose: 1 mg Gabapentin (Neurontin) 100 mg PO TID [facility] Last Admin: 07/06/18 17:32 Dose: 100 mg Guaifenesin (Robitussin) 200 mg PO Q4H PRN PRN Reason: Cough and congestion Losartan Potassium (Cozaar) 50 mg PO DAILY [facility] Last Admin: 07/06/18 10:36 Dose: 50 mg Multivitamins/Minerals (Therapeutic-M Tab) 1 tab PO DAILY [facility] Last Admin: 07/06/18 10:37 Dose: 1 tab Pantoprazole Sodium (Protonix Ec Tab) 40 mg PO DAILY [facility] Last Admin: 07/06/18 10:37 Dose: 40 mg Rosuvastatin Calcium (Crestor) 5 mg PO HS [facility] Last Admin: 07/06/18 21:51 Dose: 5 mg Tamsulosin HCl (Flomax) 0.4 mg PO HS [facility] Last Admin: 07/06/18 21:51 Dose: 0.4 mg Thiamine HCl (Vitamin B1 Tab) 100 mg PO DAILY [facility] Last Admin: 07/06/18 10:38 Dose: 100 mg Topiramate (Topamax) 50 mg PO BID [facility] Last Admin: 07/06/18 17:32 Dose: 50 mg - Labs Labs: 07/05/18 19:26 07/05/18 19:26
--- NOTE | 2018-07-07 04:30 | PN ---
Copied To: Dennys Vasquez MD Attending MD: Dennys Vasquez MD DATE: 07/06/2018 SUBJECTIVE: The patient is still depressed. He is anxious, but his shaking . PHYSICAL EXAMINATION: VITAL SIGNS: His blood pressure has gone down substantially. He is afebrile. BP 148/81, pulse 96, respiratory rate 20, temperature 98.8. LUNGS: Bilaterally clear. CVS: S1, S2 regular. ABDOMEN: Soft. ASSESSMENT: 1. Chest pain, rule out myocardial infarction. 2. Alcohol withdrawal with delirium tremens. 3. Hypertension. 4. Alcoholism and depression. PLAN: Medical management. Monitor the patient. Dennys Vasquez MD
[2018-07-07 08:31] LABS: BLOOD UREA NITROGEN 10 mg/dL (9-20); CALCIUM 9.2 mg/dl (8.6-10.4); GFR NON-AFRICAN AMERICAN > 60
[2018-07-07] MEDS: Multivitamin With Minerals Tab PO SCH (10:46)
[2018-07-07] MEDS: Pantoprazole 40 mg EC Tab PO SCH (10:47)
[2018-07-07] MEDS: Enoxaparin 40 mg Syringe SC SCH (10:48)
[2018-07-07] MEDS: Amoxicillin-Clav 875-125 mg Tab PO SCH ×2 (10:48→21:41)
[2018-07-07] MEDS: Cilostazol 100 mg Tab UD PO SCH ×2 (10:49→21:41)
[2018-07-07] MEDS ORDERED: Potassium Chloride 20 mEq ER Tab PO ONE (12:02)
[2018-07-07] MEDS ORDERED: Potassium Chloride 20 mEq/15 ml LIQ UD PO STA (17:21)
[2018-07-07] MEDS: Sodium Chloride 0.9% 1,000 ML IV SCH (17:22)
--- NOTE | 2018-07-07 23:13 | CP.PCM.PN ---
Objective - Vital Signs/Intake and Output Vital Signs (last 24 hours): Temp Pulse Resp BP Pulse Ox 98.2 F 92 H 20 95/59 L 97 07/07/18 16:55 07/07/18 21:00 07/07/18 21:00 07/07/18 21:00 07/07/18 16:55 - Medications Medications: Current Medications Albuterol/Ipratropium (Duoneb 3 Mg/0.5 Mg (3 Ml) Ud) 3 ml INH RQ6 PRN PRN Reason: Shortness of Breath Amoxicillin/Clavulanate Potassium (Augmentin 875 Mg-125 Mg Tab) 1 tab PO Q12 [facility] PRN Reason: Protocol Last Admin: 07/07/18 21:41 Dose: 1 tab Aspirin (Ecotrin) 81 mg PO DAILY [facility] Last Admin: 07/07/18 10:47 Dose: 81 mg Chlordiazepoxide (Librium) 25 mg PO Q6 PRN PRN Reason: Anxiety Cilostazol (Pletal) 100 mg PO BID [facility] Last Admin: 07/07/18 21:41 Dose: 100 mg Enoxaparin Sodium (Lovenox) 40 mg SC DAILY [facility] Last Admin: 07/07/18 10:48 Dose: 40 mg Escitalopram Oxalate (Lexapro) 10 mg PO DAILY [facility] Last Admin: 07/07/18 10:48 Dose: 10 mg Folic Acid (Folic Acid) 1 mg PO DAILY [facility] Last Admin: 07/07/18 10:50 Dose: 1 mg Gabapentin (Neurontin) 100 mg PO TID [facility] Last Admin: 07/07/18 18:13 Dose: 100 mg Guaifenesin (Robitussin) 200 mg PO Q4H PRN PRN Reason: Cough and congestion Sodium Chloride (Sodium Chloride 0.9%) 1,000 mls @ 100 mls/hr IV .Q10H [facility] Stop: 07/08/18 03:15 Last Admin: 07/07/18 17:22 Dose: 100 mls/hr Multivitamins/Minerals (Therapeutic-M Tab) 1 tab PO DAILY [facility] Last Admin: 07/07/18 10:46 Dose: 1 tab Pantoprazole Sodium (Protonix Ec Tab) 40 mg PO DAILY [facility] Last Admin: 07/07/18 10:47 Dose: 40 mg Potassium Chloride (K-Dur 20 Meq Er Tab) 20 meq PO DAILY [facility] Stop: 07/11/18 10:01 Rosuvastatin Calcium (Crestor) 5 mg PO HS [facility] Last Admin: 07/07/18 21:41 Dose: 5 mg Tamsulosin HCl (Flomax) 0.4 mg PO HS [facility] Last Admin: 07/07/18 21:41 Dose: 0.4 mg Thiamine HCl (Vitamin B1 Tab) 100 mg PO DAILY [facility] Last Admin: 07/07/18 10:47 Dose: 100 mg Topiramate (Topamax) 50 mg PO BID [facility] Last Admin: 07/07/18 18:16 Dose: 50 mg - Labs Labs: 07/05/18 19:26 07/07/18 07:44
[2018-07-08] MEDS: Sodium Chloride 0.9% 1,000 ML IV SCH (03:15)
--- NOTE | 2018-07-08 08:25 | PN ---
Copied To: Dennys Vasquez MD Attending MD: Dennys Vasquez MD DATE: 07/07/2018 SUBJECTIVE: The patient has low blood pressure now. The patient is on IV normal saline, and discontinued his losartan. PHYSICAL EXAMINATION: VITAL SIGNS: Blood pressure 95/59, pulse 92, respiratory rate 20, temperature 98.2. LUNGS: Clear. CVS: S1 and S2 regular. ABDOMEN: Soft. ASSESSMENT: 1. Hypotension which is iatrogenic. Discontinue losartan. 2. Delirium tremens. 3. Hypertension. 4. Depression. PLAN: Continue current medication. Monitor the patient. Dennys Vasquez MD
[2018-07-08] MEDS: Enoxaparin 40 mg Syringe SC SCH (09:52)
[2018-07-08] MEDS: Pantoprazole 40 mg EC Tab PO SCH (09:52)
[2018-07-08] MEDS: Potassium Chloride 20 mEq ER Tab PO SCH (09:52)
[2018-07-08] MEDS: Cilostazol 100 mg Tab UD PO SCH ×2 (09:53→18:01)
[2018-07-08] MEDS: Multivitamin With Minerals Tab PO SCH (09:53)
[2018-07-08] MEDS: Amoxicillin-Clav 875-125 mg Tab PO SCH ×2 (09:54→21:59)
[2018-07-08 14:31] LABS: BLOOD UREA NITROGEN 11 mg/dL (9-20); GFR NON-AFRICAN AMERICAN > 60
--- NOTE | 2018-07-08 22:46 | CP.PCM.PN ---
Objective - Vital Signs/Intake and Output Vital Signs (last 24 hours): Temp Pulse Resp BP Pulse Ox 98 F 76 20 135/77 99 07/08/18 16:00 07/08/18 16:00 07/08/18 16:00 07/08/18 16:00 07/08/18 16:00 Intake and Output: 07/08/18 07/09/18 18:59 06:59 Intake Total 300 Balance 300 - Medications Medications: Current Medications Albuterol/Ipratropium (Duoneb 3 Mg/0.5 Mg (3 Ml) Ud) 3 ml INH RQ6 PRN PRN Reason: Shortness of Breath Amoxicillin/Clavulanate Potassium (Augmentin 875 Mg-125 Mg Tab) 1 tab PO Q12 [facility] PRN Reason: Protocol Last Admin: 07/08/18 21:59 Dose: 1 tab Aspirin (Ecotrin) 81 mg PO DAILY [facility] Last Admin: 07/08/18 09:53 Dose: 81 mg Chlordiazepoxide (Librium) 25 mg PO Q6 PRN PRN Reason: Anxiety Cilostazol (Pletal) 100 mg PO BID [facility] Last Admin: 07/08/18 18:01 Dose: 100 mg Enoxaparin Sodium (Lovenox) 40 mg SC DAILY [facility] Last Admin: 07/08/18 09:52 Dose: 40 mg Escitalopram Oxalate (Lexapro) 10 mg PO DAILY [facility] Last Admin: 07/08/18 09:54 Dose: 10 mg Folic Acid (Folic Acid) 1 mg PO DAILY [facility] Last Admin: 07/08/18 09:53 Dose: 1 mg Gabapentin (Neurontin) 100 mg PO TID [facility] Last Admin: 07/08/18 18:01 Dose: 100 mg Guaifenesin (Robitussin) 200 mg PO Q4H PRN PRN Reason: Cough and congestion Multivitamins/Minerals (Therapeutic-M Tab) 1 tab PO DAILY [facility] Last Admin: 07/08/18 09:53 Dose: 1 tab Pantoprazole Sodium (Protonix Ec Tab) 40 mg PO DAILY [facility] Last Admin: 07/08/18 09:52 Dose: 40 mg Potassium Chloride (K-Dur 20 Meq Er Tab) 20 meq PO DAILY [facility] Stop: 07/11/18 10:01 Last Admin: 07/08/18 09:52 Dose: 20 meq Rosuvastatin Calcium (Crestor) 5 mg PO HS [facility] Last Admin: 07/08/18 21:59 Dose: 5 mg Tamsulosin HCl (Flomax) 0.4 mg PO HS [facility] Last Admin: 07/08/18 21:59 Dose: 0.4 mg Thiamine HCl (Vitamin B1 Tab) 100 mg PO DAILY [facility] Last Admin: 07/08/18 09:52 Dose: 100 mg Topiramate (Topamax) 50 mg PO BID [facility] Last Admin: 07/08/18 18:01 Dose: 50 mg - Labs Labs: 07/05/18 19:26 07/08/18 14:07
--- NOTE | 2018-07-09 04:46 | PN ---
Copied To: Dennys Vasquez MD Attending MD: Dennys Vasquez MD DATE: 07/08/2018 SUBJECTIVE: The patient feels better. His blood pressure is up. His dizziness and weakness have improved. PHYSICAL EXAMINATION: VITAL SIGNS: BP 135/77, pulse 76, respiratory rate 20, temperature 98. LUNGS: Clear. CARDIOVASCULAR SYSTEM: S1 and S2 are regular. ABDOMEN: Soft. ASSESSMENT: 1. Delirium tremens due to alcohol withdrawal. 2. Dehydration. 3. Hypertension. 4. Anxiety, depression and alcoholism. PLAN: Continue current medications. IV hydration. Monitor the patient. Dennys Vasquez MD
[2018-07-09 08:02] VITALS: BP 97/59; PULSE 75; TEMP 98.1; O2SAT 100
[2018-07-09] MEDS: Cilostazol 100 mg Tab UD PO SCH (09:49)
[2018-07-09] MEDS: Enoxaparin 40 mg Syringe SC SCH (09:50)
[2018-07-09] MEDS: Potassium Chloride 20 mEq ER Tab PO SCH (09:50)
[2018-07-09] MEDS: Multivitamin With Minerals Tab PO SCH (09:51)
[2018-07-09] MEDS: Pantoprazole 40 mg EC Tab PO SCH (09:51)
--- NOTE | 2018-07-09 14:55 | CP.PCM.PN ---
Subjective - Date & Time of Evaluation Date of Evaluation: 07/09/18 Time of Evaluation: 14:54 - Subjective Subjective: PT CLEARED FOR D/C HOME TODAY PER DR. VASQUES. NO NEW RX GIVEN. PT TO F/U WITH DR. VASQUES IN THE OFFICE NEXT WEEK. Objective - Vital Signs/Intake and Output Vital Signs (last 24 hours): Temp Pulse Resp BP Pulse Ox 98.1 F 75 20 97/59 L 100 07/09/18 07:00 07/09/18 07:00 07/09/18 07:00 07/09/18 07:00 07/09/18 07:00 - Labs Labs: 07/05/18 19:26 07/08/18 14:07
--- NOTE | 2018-07-09 23:41 | CP.PCM.DIS ---
Provider - Provider Date of Admission: 07/06/18 00:03 Attending physician: Dennys Vasquez MD Hospital Course - Lab Results Lab Results: Most Recent Lab Values WBC 9.3 K/uL (4.8-10.8) D 07/05/18 19: RBC 4.87 Mil/uL (4.40-5.90) 07/05/18 19: Hgb 12.6 g/dL (12.0-18.0) 07/05/18: Hct 38.6 % (35.0-51.0) 07/05/18 19: MCV 79.2 fL (80.0-94.0) L 07/05/18: MCH 26.0 pg (27.0-31.0) L 07/05/18: MCHC 32.7 g/dL (33.0-37.0) L 07/05/18: RDW 18.1 % (11.5-14.5) H 07/05/18: Plt Count 129 K/uL (130-400) L D 07/05/18 19: MPV 8.0 fL (7.2-11.7) 07/05/18 19: Neut % (Auto) 75.6 % (50.0-75.0) H 07/05/18: Lymph % (Auto) 13.7 % (20.0-40.0) L 07/05/18: [place] % (Auto) 9.9 % (0.0-10.0) 07/05/18: Eos % (Auto) 0.2 % (0.0-4.0) 07/05/18 19: Baso % (Auto) 0.6 % (0.0-2.0) 07/05/18: Neut # (Auto) 7.1 K/uL (1.8-7.0) H 07/05/18: Lymph # (Auto) 1.3 K/uL (1.0-4.3) 07/05/18 19: [place] # (Auto) 0.9 K/uL (0.0-0.8) H 07/05/18 19: Eos # (Auto) 0.0 K/uL (0.0-0.7) 07/05/18 19:26 Baso # (Auto) 0.1 K/uL (0.0-0.2) 07/05/18 19:26 Differential Comment 07/05/18 19:26 Sodium 140 mmol/L (132-148) 07/08/18 14:07 Potassium 4.1 mmol/L (3.6-5.2) 07/08/18 14:07 Chloride 108 mmol/L (98-107) H 07/08/18 14:07 Carbon Dioxide 22 mmol/L (22-30) 07/08/18 14:07 Anion Gap 15 (10-20) 07/08/18 14:07 BUN 11 mg/dL (9-20) 07/08/18 14:07 Creatinine 0.8 mg/dL (0.8-1.5) 07/08/18 14:07 Est GFR ( Amer) > 60 07/08/18 14:07 Est GFR (Non-Af Amer) > 60 07/08/18 14:07 POC Glucose (mg/dL) 90 mg/dL (65-110) 07/08/18 21:11 Random Glucose 153 mg/dL (75-110) H 07/08/18 14:07 Calcium 9.0 mg/dl (8.6-10.4) 07/08/18 14:07 Total Bilirubin 1.2 mg/dL (0.2-1.3) 07/05/18 19:26 AST 43 U/L (17-59) 07/05/18 19:26 ALT 32 U/L (21-72) 07/05/18 19:26 Alkaline Phosphatase 95 U/L (38-126) 07/05/18 19:26 Total Protein 7.9 g/dL (6.3-8.3) 07/05/18 19:26 Albumin 4.4 g/dL (3.5-5.0) 07/05/18 19:26 Globulin 3.5 gm/dL (2.2-3.9) 07/05/18 19:26 Albumin/Globulin Ratio 1.2 (1.0-2.1) 07/05/18 19:26 Urine Color Yellow (YELLOW) 07/05/18 19:46 Urine Clarity Clear (Clear) 07/05/18 19:46 Urine pH 6.0 (5.0-8.0) 07/05/18 19:46 Ur Specific [place] 1.006 (1.003-1.030) 07/05/18 19:46 Urine Protein 2+ mg/dL (NEGATIVE) H 07/05/18 19:46 Urine Glucose (UA) Normal mg/dL (Normal) 07/05/18 19:46 Urine Ketones 1+ mg/dL (NEGATIVE) H 07/05/18 19:46 Urine Blood 1+ (NEGATIVE) H 07/05/18 19:46 Urine Nitrate Negative (NEGATIVE) 07/05/18 19:46 Urine Bilirubin Negative (NEGATIVE) 07/05/18 19:46 Urine Urobilinogen Normal mg/dL (0.2-1.0) 07/05/18 19:46 Ur Leukocyte Esterase Neg Ellie/uL (Negative) 07/05/18 19:46 Urine WBC (Auto) < 1 /hpf (0-5) 07/05/18 19:46 Urine RBC (Auto) < 1 /hpf (0-3) 07/05/18 19:46 Ur Squamous Epith Cells < 1 /hpf (0-5) 07/05/18 19:46 Urine Opiates Screen Negative (NEGATIVE) 07/05/18 19:46 Urine Methadone Screen Negative (NEGATIVE) 07/05/18 19:46 Ur Barbiturates Screen Negative (NEGATIVE) 07/05/18 19:46 Ur Phencyclidine Scrn Negative (NEGATIVE) 07/05/18 19:46 Ur Amphetamines Screen Negative (NEGATIVE) 07/05/18 19:46 U Benzodiazepines Scrn Negative (NEGATIVE) 07/05/18 19:46 U Oth Cocaine Metabols Negative (NEGATIVE) 07/05/18 19:46 U Cannabinoids Screen Negative (NEGATIVE) 07/05/18 19:46 Alcohol, Quantitative < 10 mg/dl (0-10) 07/05/18 19:26 Discharge Plan - Follow Up Plan Condition: FAIR Disposition: HOME/ ROUTINE Instructions: Heart Healthy Diet, Alcohol Withdrawal, Coronary Heart Disease ( [place]), Alcohol Abuse and Alcoholism ([place]) Additional Instructions: -FOLLOW UP WITH DR. VASQUEZ IN THE OFFICE WITHIN 5-7 DAYS---CALL THE OFFICE FOR APPOINTMENT. -CONTINUE HOME MEDICATIONS USUAL. -NO NEW PRESCRIPTIONS GIVEN. -IF YOU HAVE ANY FURTHER QUESTIONS OR CONCERNS. Referrals: Dennys Vasquez MD [Staff Provider] -
--- NOTE | 2018-07-10 21:54 | DS ---
Copied To: Dennys Vasquez MD Attending MD: Dennys Vasquez MD ADMISSION DIAGNOSIS: Delirium tremens. DISCHARGE DIAGNOSES: Delirium tremens, hypertension, depression, and alcoholism. HISTORY OF PRESENT ILLNESS: This is a 62-year-old white male with history of hypertension, coronary artery disease status post CABG, he is a smoker, he is an alcoholic. He has multiple hospitalizations for alcoholism and alcohol-related complications. He is noncompliant with his diet, medication, and followup. He came in and he was withdrawn from alcohol, having chest pain, weakness, tiredness, and dizziness. He was admitted to the floor, and he was given Librium, IV fluid, thiamine, multivitamin. His losartan was discontinued because of blood pressure. Upon admission, his BP was high. The patient is stable. He is being discharged, he has improved. His hydration has improved. His blood pressure has been stabilized; and he is doing well. PHYSICAL EXAMINATION: VITAL SIGNS: Blood pressure 97/59, pulse 75, respiratory rate 20, and temperature 98.1. LABORATORY DATA: Sodium 140, potassium 4.1, chloride , bicarb 22, BUN 11, and creatinine 0.8. The patient's Hematology, WBC 9.3, hemoglobin 12.8, hematocrit 38.6, and platelets 129. The patient is afebrile. He is being discharged condition. He will be followed up as an outpatient. Dennys Vasquez MD
== END 2018-07-09 14:37 | disposition home or self-care (01) | DRG 897 ==
LOC: C.ER 17:31 → C.9E 07-06 00:03 → C.6T 07-06 12:50
PROVIDERS: ADMIT Internal Medicine; ATTEND Internal Medicine
DX: F10.231 Alcohol dependence with withdrawal delirium (principal); F17.200 Nicotine dependence, unspecified, uncomplicated; E11.9 Type 2 diabetes mellitus without complications; E78.00 Pure hypercholesterolemia, unspecified; F31.9 Bipolar disorder, unspecified; F41.9 Anxiety disorder, unspecified; E86.0 Dehydration; I10 Essential (primary) hypertension; I25.10 Atherosclerotic heart disease of native coronary artery without angina pectoris; J43.9 Emphysema, unspecified; Z91.11 Patient's noncompliance with dietary regimen; Z95.1 Presence of aortocoronary bypass graft; Z95.5 Presence of coronary angioplasty implant and graft; R07.9 Chest pain, unspecified; I95.89 Other hypotension

== ENCOUNTER 2018-10-23 08:48 | Inpatient (IN) | payer OTHER ==
[2018-10-23 08:48] VITALS: BMI 27.2
[2018-10-23] MEDS ORDERED: Sodium Chloride 0.9% 1,000 ML IV STA (09:34)
[2018-10-23] MEDS ORDERED: Sodium Chloride 0.9% 1,000 ML ONE (09:50)
[2018-10-23 10:18] LABS: EOS # 0.1 K/uL (0.0-0.7); HEMOGLOBIN 10.9 g/dL (12.0-18.0); LYMPH % 23.1 % (20.0-40.0); MEAN CORPUSCULAR HEMOGLOBIN 23.1 pg (27.0-31.0); MEAN CORPUSCULAR HGB CONC 31.2 g/dL (33.0-37.0); MEAN PLATELET VOLUME 8.4 fL (7.2-11.7); MONO # 0.5 K/uL (0.0-0.8); MONO % 11.2 % (0.0-10.0); NEUT # 2.8 K/uL (1.8-7.0); NEUT % 62.7 % (50.0-75.0); RBC 4.74 Mil/uL (4.40-5.90); RED CELL DISTRIBUTION WIDTH 17.1 % (11.5-14.5)
[2018-10-23 10:20] LABS: MEAN CELL VOLUME 73.8 fL (80.0-94.0); WHITE BLOOD COUNT 4.5 K/uL (4.8-10.8)
[2018-10-23 10:28] LABS: SQUAMOUS EPITHIAL < 1 /hpf (0-5); URINE BILIRUBIN NEGATIVE (NEGATIVE); URINE BLOOD NEGATIVE (NEGATIVE); URINE CLARITY Clear (Clear); URINE COLOR Yellow (YELLOW); URINE GLUCOSE (UA) NORMAL (Normal); URINE LEUKOCYTE ESTERASE NEG Leu/uL (Negative); URINE PROTEIN 2+ mg/dL (NEGATIVE); URINE UROBILINOGEN NORMAL mg/dL (0.2-1.0)
--- NOTE | 2018-10-23 10:45 | CT ---
Date of service: 10/23/2018 PROCEDURE: CT Abdomen and Pelvis without intravenous contrast HISTORY: Abdominal pain COMPARISON: 05/30/2018 TECHNIQUE: CT scan of the abdomen and pelvis was performed without administration of intravenous contrast. Oral contrast was not administered. Coronal and sagittal reformatted images were obtained. . Radiation dose: Total exam DLP = 434.75 mGy-cm. This CT exam was performed using one or more of the following dose reduction techniques: Automated exposure control, adjustment of the mA and/or kV according to patient size, and/or use of iterative reconstruction technique. FINDINGS: LOWER THORAX: The visualized lungs are clear. LIVER: Normal in size. No intrahepatic ductal dilatation. GALLBLADDER AND BILE DUCTS: No calcified gallstones. No biliary dilatation PANCREAS: Normal in size. No ductal dilatation. SPLEEN: Normal in size. ADRENALS: Mild thickening without discrete nodule. KIDNEYS AND URETERS: Normal in size without nephrolithiasis. No hydronephrosis. Redemonstration of 2.0 cm complicated cyst in the upper pole of the right kidney. VASCULATURE: No aortic aneurysm. There are advanced aortic atherosclerotic calcifications present. BOWEL: Evaluation of the bowel is limited in the absence of oral contrast. Allowing for this, there is fecalization of small bowel contents. There is moderate amount of stool in the ascending colon. The left hemicolon is decompressed. There is apparent mild circumferential mural thickening in the sigmoid colon. APPENDIX: Normal appendix. PERITONEUM: No free fluid. No free air. LYMPH NODES: No enlarged lymph nodes. BLADDER: Well distended and grossly normal in appearance. REPRODUCTIVE: There is mild enlargement of the prostate gland with central coarse calcifications. Please correlate with PSA levels. BONES: No acute fracture. Redemonstration of subarticular sclerosis and curvilinear areas of increased sclerosis concerning for avascular necrosis in the left femoral head. OTHER FINDINGS: There is a small sliding hiatal hernia. IMPRESSION: Apparent mild circumferential mural thickening in the sigmoid colon is nonspecific and could be related to underdistention however could also represent acute/chronic nonspecific segmental colitis in the appropriate clinical setting. Fecalization of small bowel contents likely related to chronic stasis. Moderate amount of stool in the ascending colon.
[2018-10-23 11:18] LABS: ALB/GLOB RATIO 1.2 (1.0-2.1); ALBUMIN 4.3 g/dL (3.5-5.0); ALT/SGPT 26 U/L (21-72); AST/SGOT 29 U/L (17-59); BLOOD UREA NITROGEN 8 mg/dL (9-20); CALCIUM 8.7 mg/dl (8.6-10.4); GFR NON-AFRICAN AMERICAN > 60; LIPASE 271 U/L (23-300)
[2018-10-23 11:18] LABS: BARBITURATES, UR NEGATIVE (NEGATIVE); BENZODIAZEPINES, UR NEGATIVE (NEGATIVE); OPIATES, UR NEGATIVE (NEGATIVE); PHENCYCLIDINE, UR NEGATIVE (NEGATIVE)
--- NOTE | 2018-10-23 12:38 | C.PDOC ---
History Of Present Illness 62 y/o male, with Hx of alcohol abuse, presents to ED c/o right flank pain radiating across the abdomen. Pt reports history of kidney stones. Last drinks was yesterday, states he suffers from alcohol withdrawal. Denies urinary sympto ms, fever, or other complaints. Time Seen by Provider: 10/23/18 09:01 Chief Complaint (Nursing): Male Genitourinary History Per: Patient History/Exam Limitations: no limitations Onset/Duration Of Symptoms: Days Current Symptoms Are (Timing): Still Present Quality Of Discomfort: "Pain" Associated Symptoms: denies: Diarrhea, Loss Of Appetite, Constipation, Urinary Symptoms Alleviating Factors: None Recent travel outside of the [place]: No Additional History Per: Patient Past Medical History Reviewed: Historical Data, Nursing Documentation, Vital Signs Vital Signs: Last Vital Signs Temp 98.3 F 10/23/18 08:57 Pulse 85 10/23/18 12:25 Resp 17 10/23/18 12:25 BP 151/71 H 10/23/18 12:25 Pulse Ox 98 10/23/18 12:25 - Medical History PMH: Anxiety, Arthritis, Asthma, Benign Prostatic Hyperplasia, Bipolar Disorder, Bronchitis, CAD, Cardia Arrhythmia, COPD, Depression, Diabetes, Emphysema, Gastritis, Hepatitis (PATIENT STATED HE HAS HEPATITIS BUT COULD NOT RECALL WHICH ONE), HTN, Hypercholesterolemia, Hyperlipidemia, Migraine, Pancreatitis, Pneumonia, Seizures (ETOH related), Sleep Apnea Denies: Anemia, Diverticulitis, Fractures, HIV, Hyperthyroidism, H ypothyroidism, Pulmonary Embolism, Chronic Kidney Disease, Sickle Cell Disease, Sexually Transmitted Disease Surgical History: CABG ((quadruple bypass) 2010), Coronary Stent - [facility] ALCOHOL DETOXIFICATION (03/12/15) CORONAR ARTERIOGR-2 CATH (07/24/15) CORONARY ARTERY STENT INSERTION [id number]-[id number] (07/24/15) DETOXIFICATION SERVICES FOR SUBSTANCE ABUSE TREATMENT (04/21/18) ESOPHAGOGASTRODUODENOSCOPY [EGD] W/CLOSED BIOPSY (05/21/13) EXCISION OF DESCENDING COLON, ENDO, DIAGN (06/01/17) EXCISION OF STOMACH, ENDO, DIAGN (06/01/17) GROUP PSYCHOTHERAPY (02/23/18) INDIV PSYCHOTHERAPY FOR SUBSTANCE ABUSE TREATMENT, SUPPORT (11/09/17) INDIV PSYCHOTHERAPY FOR SUBSTANCE ABUSE, COGNITIV BEHAVIORAL (11/09/17) INDIV PSYCHOTHERAPY FOR SUBSTANCE ABUSE, MOTIVATION ENHANCE (11/29/17) INDIV PSYCHOTHERAPY FOR SUBSTANCE ABUSE, PSYCHOEDUCATION (11/29/17) INDIVID PSYCHOTHERAP NEC (11/04/14) INDIVIDUAL PSYCHOTHERAPY, BEHAVIORAL (02/23/18) INDIVIDUAL PSYCHOTHERAPY, COGNITIVE-BEHAVIORAL (11/19/16) INDIVIDUAL PSYCHOTHERAPY, SUPPORTIVE (10/02/16) INSERTION OF ONE VASCULAR STENT (07/24/15) INTRODUCE OF OTH THERAP SUBST INTO RESP TRACT, VIA OPENING (02/05/18) IRRIGATION OF EAR (05/23/15) LEFT HEART CARDIAC CATH (07/19/15) LT HEART ANGIOCARDIOGRAM (07/19/15) OTHER GROUP THERAPY (11/04/14) PACKED CELL TRANSFUSION (05/21/13) PERCUTANEOUS TRANSLUMINAL CORONARY ANGIOPLASTY [PTCA] (07/24/15) PROCEDURE ON SINGLE VESSEL (07/24/15) PSYCHIAT DRUG THERAP NEC (11/04/14) RT HEART ANGIOCARDIOGRAM (07/22/15) RT HEART CARDIAC CATH (07/22/15) VACCINATION NEC (09/28/14) Family History: States: Unknown Family Hx - Social History Hx Tobacco Use: Yes Hx Alcohol Use: Yes Hx Substance Use: No - Immunization History Hx Tetanus Toxoid Vaccination: Yes Hx Influenza Vaccination: No Hx Pneumococcal Vaccination: Yes Review Of Systems Except As Marked, All Systems Reviewed And Found Negative. Constitutional: Negative for: Fever, Chills Cardiovascular: Negative for: Chest Pain, Palpitations Gastrointestinal: Positive for: Abdominal Pain. Negative for: Nausea, Vomiting Genitourinary: Negative for: Dysuria, Frequency, Hematuria, Penile Discharge Musculoskeletal: Positive for: Back Pain (right flank) Neurological: Negative for: Weakness, Numbness Physical Exam - Physical Exam Appears: Non-toxic, No Acute Distress Skin: Warm, Dry, Pale Head: Atraumatic, Normacephalic Eye(s): bilateral: Normal Inspection Oral Mucosa: Moist Neck: Normal ROM, Supple Cardiovascular: Rhythm Regular, No Murmur Respiratory: Normal Breath Sounds, No Rales, No Rhonchi, No Wheezing, Other (hyperventilating) Gastrointestinal/Abdominal: Soft, No Tenderness Back: CVA Tenderness (mild right) Extremity: No Pedal Edema, No Swelling, Other (tremulous) Neurological/Psych: Oriented x3, Normal Speech ED Course And Treatment - Laboratory Results Result Diagrams: 10/23/18 10:00 10/23/18 09:34 ECG: Interpreted By Me, Viewed By Me ECG Rhythm: Sinus Rhythm Interpretation Of ECG: flipped T's in inferior leads Rate From EC O2 Sat by Pulse Oximetry: 98 Pulse Ox Interpretation: Normal - CT Scan/US Abd/pelvis Other Rad Studies (CT/US): Read By Radiologist, Radiology Report Reviewed CT/US Interpretation: Accession No. : [id number]. Patient Name / ID : TONY GRIGSBY / [id number]. Exam Date : 10/23/2018 09:54:02 ( Approved ). Study Comment : Sex / Age : M / 62Y. Creator : Mary Diaz MD. Dictator : Mary Diaz MD. Drawstring Knotter : Warehouse Examiner : Mary Diaz MD. Approver2 : Report Date : 10/23/2018 10:41:52. My Comment : . Date of service: 10/23/2018. PROCEDURE: CT Abdomen and Pelvis without intravenous contrast. HISTORY: Abdominal pain. COMPARISON: 05/30/2018. TECHNIQUE: CT scan of the abdomen and pelvis was performed without administration of intravenous contrast. Oral contrast was not administered. Coronal and sagittal reformatted images were obtained. . Radiation dose: Total exam DLP = 434.75 mGy-cm. This CT exam was performed using one or more of the following dose reduction techniques: Automated exposure control, adjustment of the mA and/or kV according to patient size, and/or use of iterative reconstruc tion technique. FINDINGS: LOWER THORAX: The visualized lungs are clear. LIVER: Normal in size. No intrahepatic ductal dilatation. GALLBLADDER AND BILE DUCTS: No calcified gallstones. No biliary dilatation. PANCREAS: Normal in size. No ductal dilatation. SPLEEN: Normal in size. ADRENALS: Mild thickening without discrete nodule. KIDNEYS AND URETERS: Normal in size without nephrolithiasis. No hydronephrosis. Redemonstration of 2.0 cm complicated cyst in the upper pole of the right kidney. VASCULATURE: No aortic aneurysm. There are advanced aortic atherosclerotic calcifications present. BOWEL: Evaluation of the bowel is limited in the absence of oral contrast. Allowing for this, there is fecalization of small bowel contents. There is moderate amount of stool in the ascending colon. The left hemicolon is decompressed. There is apparent mild circumferential mural thickening in the sigmoid colon. APPENDIX: Normal appendix. PERITONEUM: No free fluid. No free air. LYMPH NODES: No enlarged lymph nodes. BLADDER: Well distended and grossly normal in appearance. REPRODUCTIVE: There is mild enlargement of the prostate gland with central coarse calcifications. Please correlate with PSA levels. BONES: No acute fracture. Redemonstration of subarticular sclerosis and curvilinear areas of increased sclerosis concerning for avascular necrosis in the left femoral head. OTHER FINDINGS: There is a small sliding hiatal hernia. IMPRESSION: Apparent mild circumferential mural thickening in the sigmoid colon is nonspecific and could be related to underdistention however could also represent acute/chronic nonspecific segmental colitis in the appropriate clinical setting. Fecalization of small bowel contents likely related to chronic stasis. Moderate amount of stool in the ascending colon. Medical Decision Making Medical Decision Making: Plan: Blood work Urinalysis Abd & Pelvis CT ECG Tylenol Ativan Morphine IV fluids On re-eval, pt reports feeling better. Pt is requesting detox at this time. He was evaluated by crisis and is accepted by detox unit. Disposition - Disposition Disposition: HOME/ ROUTINE Disposition Time: 13:33 Condition: GUARDED Forms: [facility] ([place]) - Clinical Impression Clinical Impression: Alcohol dependence, Alcohol abuse, Constipation, Alcohol withdrawal - Scribe Statement The provider has reviewed the documentation as recorded by the Scribe KP All medical record entries made by the Scribe were at my direction and personally dictated by me. I have reviewed the chart and agree that the record accurately reflects my personal performance of the history, physical exam, medical decision making, and the department course for this patient. I have also personally directed, reviewed, and agree with the discharge instructions and disposition. Decision To Admit - Pt Status Changed To: Hospital Disposition Of: Inpatient - Admit Certification Admit to Inpatient:: After my assessment, the patient will require hospitalization for at least two midnights. This is because of the severity of symptoms shown, intensity of services needed, and/or the medical risk in this patient being treated as an outpatient. - InPatient: Physician Admission Certification: I certify that this patient requires 2 or mor e midnights of care for the following reason:: alcohol dependance - . Bed Request Type: Detox Patient Diagnosis: Alcohol dependence, Alcohol abuse, Constipation, Alcohol withdrawal
--- NOTE | 2018-10-23 14:27 | PCM.BM ---
Treatment Plan Problems - Problems identified on initial assessmt Potential for alcohol withdrawal Date Initiated: 10/23/18 Time Initiated: 14:26 Assessment reference: NA Status: Active Treatment assets and liabiliti Patient Assests: adapts well, cooperative, ADL independent, negotiates basic needs, good past tx response, cognitively intact Patient Liabilities: physical pain, relationship conflicts, medical problems - Milieu Protocol Maintain good personal hygiene: daily Encourage regular showers, daily Remind patient to perform daily oral care, daily Assist patient to perform ADL's, every shift Encourage regular showers, every shift Remind patient to perform daily oral care, every shift Assist patient to perform ADL's Maintain personal safety: daily Educate patient to report safety concerns to staff, daily Monitor environment for contraband/sharps, every shift Educate patient to report safety concerns to staff, every shift Monitor environment for contraband/sharps Medication safety: Monitor for expected outcome, potential side effects: daily, every shift, Assess barriers to learning: daily, every shift, Assess readiness for medication education: daily, every shift
[2018-10-23] MEDS: Pantoprazole 40 mg EC Tab PO SCH (17:03)
[2018-10-23] MEDS: Multiple Vitamins Tab PO SCH (17:04)
[2018-10-23] MEDS: Cilostazol 100 mg Tab UD PO SCH (17:12)
[2018-10-23] MEDS: Albuterol-Ipratrop 3 mg / 0.5 (3 ml) UD INH SCH (19:16)
[2018-10-24] MEDS: Albuterol-Ipratrop 3 mg / 0.5 (3 ml) UD INH SCH ×4 (01:32→19:55)
[2018-10-24] MEDS: Cilostazol 100 mg Tab UD PO SCH ×2 (09:37→17:03)
[2018-10-24] MEDS: Pantoprazole 40 mg EC Tab PO SCH (09:37)
[2018-10-24] MEDS: Multiple Vitamins Tab PO SCH (09:37)
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
[2018-10-25] MEDS: Albuterol-Ipratrop 3 mg / 0.5 (3 ml) UD INH SCH ×4 (01:02→19:33)
[2018-10-25] MEDS: Multiple Vitamins Tab PO SCH (10:03)
[2018-10-25] MEDS: Pantoprazole 40 mg EC Tab PO SCH (10:04)
[2018-10-25] MEDS: Cilostazol 100 mg Tab UD PO SCH ×2 (10:04→17:02)
--- NOTE | 2018-10-25 11:30 | PCM.PYCHPN ---
Psychiatric Progress Note - Psychiatric Progress Note Medication Change: Yes Medical Record Reviewed: Yes Mental Status Examination - Cognitive Function Orientation: Person, Place, Situation, Time - Mood Mood: Depressed - Affect Affect: Depressed - Formal Thought Process Formal Thought Process: No Impairment - Homicidal Ideation Homicidal Ideation: No
--- NOTE | 2018-10-25 15:07 | CARD ---
APPROVED REPORT Date of service: 10/23/2018 EKG Measurement Heart [id number] <Conclusion> Normal sinus rhythm T wave abnormality, consider inferolateral ischemia Abnormal ECG
[2018-10-26] MEDS: Albuterol-Ipratrop 3 mg / 0.5 (3 ml) UD INH SCH ×2 (03:00→09:23)
[2018-10-26 06:33] VITALS: RESP 18
--- NOTE | 2018-10-26 08:58 | PCM.PYCHDC ---
Mental Status Examination - Mental Status Examination Orientation: Person, Place, Situation, Time Memory: Intact Mood: Anxious Affect: Constricted Speech: Appropriate Attention: WNL Concentration: WNL Association: WNL Fund of Knowledge: WNL Formal Thought Process: No Impairment Suicidal Ideation: No Current Homicidal Ideation?: No Discharge Summary - Discharge Note Consultations:: List each consultation separately and include: 1. Reason for request. 2. Findings. 3. Follow-up Summary of Hospital Course include:: 1. Description of specific treatment plan utilized for patients during their course of treatmen. 2. Summarize the time- course for resolution of acute symptoms and/or regressed behaviors. 3. Describe issues identified and worked on during hospitalization. 4. Describe medication utilized. 5. Describe medical problems identified and treated. 6. Reassessment of suicide risk Summary of Hospital Course: Hospital course: The pt was admitted and started on treatment with psychotherapy, support, psychoeducation and medications. AK and CBT used. The pt attended groups and activities, as well as milieu therapy. All the risks and benefits of medications are discussed and the patient understood and agreed. The pt improved with the treatments provided. After care discussed with the patient. He went to [facility]. - Final Diagnosis (DSM 5) Condition upon Discharge: GUARDED DSM 5: Alcohol withdrawal. Alcohol use disorder severe. Major depressive disorder recurrent severe without psychotic features. Disposition: HOME/ ROUTINE Follow-up Treatment Plan: Continue below medications after discharge. Follow after care plan as discussed. Use relapse prevention skills Return to ER or call 911 if suicidal, homicidal or symptoms relapse. Stay away from stress, alcohol and drugs. See primary doctor regularly and get labs. Prescriptions/Medication Reconciliation: Albuterol/Ipratropium [Duoneb 3 mg/0.5 mg (3 ml) UD] 3 ml INH RQ6 #1 neb Aspirin [Ecotrin] 81 mg PO DAILY #30 tabec Cilostazol [Pletal] 100 mg PO BID #60 tab Gabapentin [Neurontin] 100 mg PO TID #90 cap Losartan [Cozaar] 50 mg PO DAILY #30 tab Pantoprazole [Protonix EC Tab] 40 mg PO DAILY #30 ect Tamsulosin [Flomax] 0.4 mg PO DAILY #30 cap Topiramate [Topamax] 50 mg PO BID #60 tab
[2018-10-26] MEDS: Multiple Vitamins Tab PO SCH (10:06)
[2018-10-26] MEDS: Cilostazol 100 mg Tab UD PO SCH (10:08)
[2018-10-26] MEDS: Pantoprazole 40 mg EC Tab PO SCH (10:09)
[2018-10-26 11:59] VITALS: BP 104/62; PULSE 89; TEMP 98.4; O2SAT 98
== END 2018-10-26 11:00 | disposition home or self-care (01) | DRG 895 ==
LOC: C.ER 08:48 → C.7D 13:35
PROC: HZ2ZZZZ Detoxification Services for Substance Abuse Treatment (ICD-10-PCS; principal; 2018-10-23)
PROC: HZ52ZZZ Individual Psychotherapy for Substance Abuse Treatment, Cognitive-Behavioral (ICD-10-PCS; 2018-10-23)
PROC: HZ59ZZZ Individual Psychotherapy for Substance Abuse Treatment, Supportive (ICD-10-PCS; 2018-10-23)
PROC: HZ56ZZZ Individual Psychotherapy for Substance Abuse Treatment, Psychoeducation (ICD-10-PCS; 2018-10-23)
PROC: HZ42ZZZ Group Counseling for Substance Abuse Treatment, Cognitive-Behavioral (ICD-10-PCS; 2018-10-23)
PROC: HZ46ZZZ Group Counseling for Substance Abuse Treatment, Psychoeducation (ICD-10-PCS; 2018-10-23)
PROC: GZHZZZZ Group Psychotherapy (ICD-10-PCS; 2018-10-23)
PROC: GZ58ZZZ Individual Psychotherapy, Cognitive-Behavioral (ICD-10-PCS; 2018-10-23)
PROC: GZ56ZZZ Individual Psychotherapy, Supportive (ICD-10-PCS; 2018-10-23)
DX: F10.230 Alcohol dependence with withdrawal, uncomplicated (principal); F33.2 Major depressive disorder, recurrent severe without psychotic features; E11.9 Type 2 diabetes mellitus without complications; E78.00 Pure hypercholesterolemia, unspecified; I25.10 Atherosclerotic heart disease of native coronary artery without angina pectoris; I10 Essential (primary) hypertension; G47.30 Sleep apnea, unspecified; J44.9 Chronic obstructive pulmonary disease, unspecified; N40.0 Benign prostatic hyperplasia without lower urinary tract symptoms; Z91.19 Patient's noncompliance with other medical treatment and regimen; Z95.5 Presence of coronary angioplasty implant and graft; Z91.410 Personal history of adult physical and sexual abuse; F17.210 Nicotine dependence, cigarettes, uncomplicated; Y90.1 Blood alcohol level of 20-39 mg/100 ml

== ENCOUNTER 2018-10-30 21:19 | Emergency (ER) | payer OTHER ==
[2018-10-30 21:19] VITALS: BMI 27.2
--- NOTE | 2018-10-30 21:43 | C.PDOC ---
History Of Present Illness Patient reports he drank two pints of hard liquor tonight, called EMS because he fell and hit his mouth. "There was blood all over the house". Denies head trauma or LOC. No active bleeding from the mouth at this time. Patient appears intoxicated, with slurred speech and odor of alcohol on breath. He has no other complaints. Time Seen by Provider: 10/30/18 21:35 Chief Complaint (Nursing): Substance Abuse Past Medical History Reviewed: Historical Data, Nursing Documentation, Vital Signs Vital Signs: Last Vital Signs Temp 97.9 F 10/30/18 21:28 Pulse 90 10/30/18 21:28 Resp 14 10/30/18 21:28 BP Pulse Ox 94 L 10/30/18 21:28 - Medical History PMH: Anxiety, Arthritis, Asthma, Benign Prostatic Hyperplasia, Bipolar Disorder, Bronchitis, CAD, Cardia Arrhythmia, COPD, Depression, Diabetes, Emphysema, Gastritis, Hepatitis (PATIENT STATED HE HAS HEPATITIS BUT COULD NOT RECALL WHICH ONE), HTN, Hypercholesterolemia, Hyperlipidemia, Migraine, Pancreatitis, Pneumonia, Seizures (ETOH related), Sleep Apnea Denies: Anemia, Diverticulitis, Fractures, HIV, Hyperthyroidism, Hypothyroidism, Pulmonary Embolism, Chronic Kidney Disease, Sickle Cell Disease, Sexually Transmitted Disease Surgical History: CABG ((quadruple bypass) 2010), Coronary Stent - [facility] Procedures ALCOHOL DETOXIFICATION (03/12/15) CORONAR ARTERIOGR-2 CATH (07/24/15) CORONARY ARTERY STENT INSERTION [id number] (07/24/15) DETOXIFICATION SERVICES FOR SUBSTANCE ABUSE TREATMENT (10/23/18) ESOPHAGOGASTRODUODENOSCOPY [EGD] W/CLOSED BIOPSY (05/21/13) EXCISION OF DESCENDING COLON, ENDO, DIAGN (06/01/17) EXCISION OF STOMACH, ENDO, DIAGN (06/01/17) GROUP PROFESSOR OF VIOLIN FOR SUBSTANCE ABUSE TREATMENT, PSYCHOEDUCATION (10/23/18) GROUP PROFESSOR OF VIOLIN FOR SUBSTANCE ABUSE, COGNITIVE BEHAVIORAL (10/23/18) GROUP PSYCHOTHERAPY (10/23/18) INDIV PSYCHOTHERAPY FOR SUBSTANCE ABUSE TREATMENT, SUPPORT (10/23/18) INDIV PSYCHOTHERAPY FOR SUBSTANCE ABUSE, COGNITIV BEHAVIORAL (10/23/18) INDIV PSYCHOTHERAPY FOR SUBSTANCE ABUSE, MOTIVATION ENHANCE (11/29/17) INDIV PSYCHOTHERAPY FOR SUBSTANCE ABUSE, PSYCHOEDUCATION (10/23/18) INDIVID PSYCHOTHERAP NEC (11/04/14) INDIVIDUAL PSYCHOTHERAPY, BEHAVIORAL (02/23/18) INDIVIDUAL PSYCHOTHERAPY, COGNITIVE-BEHAVIORAL (10/23/18) INDIVIDUAL PSYCHOTHERAPY, SUPPORTIVE (10/23/18) INSERTION OF ONE VASCULAR STENT (07/24/15) INTRODUCE OF OTH THERAP SUBST INTO RESP TRACT, VIA OPENING (02/05/18) IRRIGATION OF EAR (05/23/15) LEFT HEART CARDIAC CATH (07/19/15) LT HEART ANGIOCARDIOGRAM (07/19/15) OTHER GROUP THERAPY (11/04/14) PACKED CELL TRANSFUSION (05/21/13) PERCUTANEOUS TRANSLUMINAL CORONARY ANGIOPLASTY [PTCA] (07/24/15) PROCEDURE ON SINGLE VESSEL (07/24/15) PSYCHIAT DRUG THERAP NEC (11/04/14) RT HEART ANGIOCARDIOGRAM (07/22/15) RT HEART CARDIAC CATH (07/22/15) VACCINATION NEC (09/28/14) Family History: States: Unknown Family Hx - Social History Hx Tobacco Use: Yes Hx Alcohol Use: Yes Hx Substance Use: Yes - Immunization History Hx Tetanus Toxoid Vaccination: Yes Hx Influenza Vaccination: No Hx Pneumococcal Vaccination: Yes Review Of Systems Except As Marked, All Systems Reviewed And Found Negative. Constitutional: Negative for: Fever, Chills ENT: Negative for: Mouth Pain Cardiovascular: Negative for: Chest Pain Respiratory: Negative for: Shortness of Breath Gastrointestinal: Negative for: Nausea, Vomiting Musculoskeletal: Negative for: Neck Pain, Arm Pain, Back Pain, Leg Pain Skin: Negative for: Bruising Neurological: Positive for: Change in Speech (Slurred- from intoxication) Psych: Negative for: Withdrawal Physical Exam - Physical Exam Appears: Unkempt, Other (Intoxicated) Skin: Normal Color, Warm, Dry Head: Atraumatic Eye(s): bilateral: Normal Inspection Nose: No Epistaxis, No Deformity Oral Mucosa: Moist Tongue: Fissured Lips: Normal Appearing, No Abrasion, No Laceration Teeth: No Tender To Palpation, No Loose Neck: No Midline Cervical Tenderness Cardiovascular: Rhythm Regular Respiratory: Normal Breath Sounds Gastrointestinal/Abdominal: Normal Exam, Soft Back: No Vertebral Tenderness Extremity: Normal ROM Neurological/Psych: Other (Intoxicated) ED Course And Treatment O2 Sat by Pulse Oximetry: 94 Medical Decision Making Medical Decision Making: Patient progressively returned to baseline throughout ED course. At time of discharge patient is awake and alert, and able to ambulate without difficulty. Disposition - Disposition Disposition: HOME/ ROUTINE Disposition Time: 06:00 Condition: STABLE Additional Instructions: CALISTA JIMENEZ, thank you for letting us take care of you today. Your provider was Bertha Song MD and you were treated for SUBSTANCE ABUSE. The emergency medical care you received today was directed at your acute symptoms. If you were prescribed any medication, please fill it and take as directed. It may take several days for your symptoms to resolve. Return to the Emergency Department if your symptoms worsen, do not improve, or if you have any other problems. Please contact your doctor or call one of the physicians/clinics you have been referred to that are listed on the Patient Visit Information form that is included in your discharge packet. Bring any paperwork you were given at d ischarge with you along with any medications you are taking to your follow up visit. Our treatment cannot replace ongoing medical care by a primary care provider outside of the emergency department. Thank you for allowing the [facility] team to be part of your care today. If you had an X-Ray or CT scan: A Radiologist will review the ED reading if any change in treatment is needed we will contact you. If you had a blood, urine, or wound culture: It will take several days for the results, if any change in treatment is needed we will contact you. If you had an STI test: It will take 48 hours for the results. Please call after 1 week if you have not heard back. Instructions: Alcohol Abuse and Alcoholism (DC) Forms: [place] (Burmese) - Clinical Impression Clinical Impression: Alcohol intoxication, Facial injury
[2018-10-31 01:52] VITALS: RESP 20
[2018-10-31 05:47] VITALS: BP 137/68; PULSE 75; TEMP 98.1
[2018-10-31 06:08] VITALS: O2SAT 94
== END 2018-10-31 06:06 | disposition home or self-care (01) ==
LOC: C.ER 21:19
DX: F10.129 Alcohol abuse with intoxication, unspecified (principal); S09.93XA Unspecified injury of face, initial encounter; W19.XXXA Unspecified fall, initial encounter; Y92.009 Unspecified place in unspecified non-institutional (private) residence as the place of occurrence of the external cause; E11.9 Type 2 diabetes mellitus without complications

== ENCOUNTER 2019-01-12 13:51 | Inpatient (IN) | payer OTHER ==
[2019-01-12 13:51] VITALS: BMI 27.2
[2019-01-12 14:33] LABS: HEMOGLOBIN 10.9 g/dL (12.0-18.0); MEAN CORPUSCULAR HEMOGLOBIN 20.5 pg (27.0-31.0); MEAN CORPUSCULAR HGB CONC 29.6 g/dL (33.0-37.0); MEAN PLATELET VOLUME 9.8 fL (7.2-11.7); PLATELET COUNT 180 K/uL (130-400); RBC 5.35 Mil/uL (4.40-5.90); RED CELL DISTRIBUTION WIDTH 20.4 % (11.5-14.5)
[2019-01-12] MEDS ORDERED: Albuterol 0.083% Inhal Sol (2.5 mg/3 mL) UD IH STA (14:46)
[2019-01-12 14:47] LABS: MEAN CELL VOLUME 69.2 fL (80.0-94.0); WHITE BLOOD COUNT 9.9 K/uL (4.8-10.8)
[2019-01-12 14:58] LABS: ALB/GLOB RATIO 1.1 (1.0-2.1); ALBUMIN 4.6 g/dL (3.5-5.0); ALT/SGPT 29 U/L (21-72); AST/SGOT 46 U/L (17-59); BLOOD UREA NITROGEN 16 mg/dL (9-20); CALCIUM 9.1 mg/dl (8.6-10.4); GFR NON-AFRICAN AMERICAN > 60; LIPASE 238 U/L (23-300)
[2019-01-12] MEDS ORDERED: Albuterol-Ipratrop 3 mg / 0.5 (3 ml) UD ONE (15:01)
--- NOTE | 2019-01-12 15:01 | C.PDOC ---
History Of Present Illness 63 y/o male w/PMhx of diabetes, CAD with stents, CABG, HTN, CHENCHO, hyperlipidemia brought to ER by BLS for evaluation of dizziness. Patient states that he has not been feeling well or sleeping well for the past several days. He reports that he took all his medications this morning (like he typically does), except that he took 1 additional anti-viral medication (unknown) which was prescribed on 12/08/18 "for influenza". After he took the medications, he ststes he became very lightheaded. Patient also c/onon-productive cough, "dry heaves", nausea, and decreased PO intake. He also complains of chronic right sided back/flank diallo n for the past 6 months. Patiet denies CP, SOB, palpitations, vomiting, abdominal pain, diarrhea, dysuria, hematuria, visual changes, facial droop, slurred speech, extremity weakness, sensory changes. Time Seen by Provider: 01/12/19 13:57 Chief Complaint (Nursing): Dizziness/Lightheaded History Per: Patient History/Exam Limitations: no limitations Onset/Duration Of Symptoms: Days Current Symptoms Are (Timing): Still Present Severity: Moderate Past Medical History Reviewed: Historical Data, Nursing Documentation, Vital Signs Vital Signs: Last Vital Signs Temp 98.1 F 01/12/19 14:03 Pulse 70 01/12/19 14:03 Resp 16 01/12/19 14:03 BP 144/72 01/12/19 14:03 Pulse Ox 100 01/12/19 14:03 - Medical History PMH: Anxiety, Arthritis, Asthma, Benign Prostatic Hyperplasia, Bipolar Disorder, Bronchitis, CAD, Cardia Arrhythmia, COPD, Depression, Diabetes, Emphysema, Gas tritis, Hepatitis (PATIENT STATED HE HAS HEPATITIS BUT COULD NOT RECALL WHICH ONE), HTN, Hypercholesterolemia, Hyperlipidemia, Migraine, Pancreatitis, Pneumonia, Seizures (ETOH related), Sleep Apnea Surgical History: CABG ((quadruple bypass) 2010), Coronary Stent - [facility] Procedures ALCOHOL DETOXIFICATION (03/12/15) CORONAR ARTERIOGR-2 CATH (07/24/15) CORONARY ARTERY STENT INSERTION [id number] (07/24/15) DETOXIFICATION SERVICES FOR SUBSTANCE ABUSE TREATMENT (10/23/18) ESOPHAGOGASTRODUODENOSCOPY [EGD] W/CLOSED BIOPSY (05/21/13) EXCISION OF DESCENDING COLON, ENDO, DIAGN (06/01/17) EXCISION OF STOMACH, ENDO, DIAGN (06/01/17) GROUP OIL REFINERY OPERATOR FOR SUBSTANCE ABUSE TREATMENT, PSYCHOEDUCATION (10/23/18) GROUP OIL REFINERY OPERATOR FOR SUBSTANCE ABUSE, COGNITIVE BEHAVIORAL (10/23/18) GROUP PSYCHOTHERAPY (10/23/18) INDIV PSYCHOTHERAPY FOR SUBSTANCE ABUSE TREATMENT, SUPPORT (10/23/18) INDIV PSYCHOTHERAPY FOR SUBSTANCE ABUSE, COGNITIV BEHAVIORAL (10/23/18) INDIV PSYCHOTHERAPY FOR SUBSTANCE ABUSE, MOTIVATION ENHANCE (11/29/17) INDIV PSYCHOTHERAPY FOR SUBSTANCE ABUSE, PSYCHOEDUCATION (10/23/18) INDIVID PSYCHOTHERAP NEC (11/04/14) INDIVIDUAL PSYCHOTHERAPY, BEHAVIORAL (02/23/18) INDIVIDUAL PSYCHOTHERAPY, COGNITIVE-BEHAVIORAL (10/23/18) INDIVIDUAL PSYCHOTHERAPY, SUPPORTIVE (10/23/18) INSERTION OF ONE VASCULAR STENT (07/24/15) INTRODUCE OF OTH THERAP SUBST INTO RESP TRACT, VIA OPENING (02/05/18) IRRIGATION OF EAR (05/23/15) LEFT HEART CARDIAC CATH (07/19/15) LT HEART ANGIOCARDIOGRAM (07/19/15) OTHER GROUP THERAPY (11/04/14) PACKED CELL TRANSFUSION (05/21/13) PERCUTANEOUS TRANSLUMINAL CORONARY ANGIOPLASTY [PTCA] (07/24/15) PROCEDURE ON SINGLE VESSEL (07/24/15) PSYCHIAT DRUG THERAP NEC (11/04/14) RT HEART ANGIOCARDIOGRAM (07/22/15) RT HEART CARDIAC CATH (07/22/15) VACCINATION NEC (09/28/14) Family History: States: No Known Family Hx - Social History Hx Tobacco Use: Yes Hx Alcohol Use: Yes Hx Substance Use: Yes - Immunization History Hx Tetanus Toxoid Vaccination: Yes Hx Influenza Vaccination: No Hx Pneumococcal Vaccination: Yes Review Of Systems Constitutional: Negative for: Fever, Chills Cardiovascular: Negative for: Chest Pain, Palpitations Respiratory: Positive for: Cough. Negative for: Shortness of Breath Gastrointestinal: Positive for: Nausea, Other (flank pain). Negative for: Vomiting, Abdominal Pain, Diarrhea Musculoskeletal: Positive for: Back Pain Skin: Negative for: Rash Neurological: Positive for: Dizziness. Negative for: Weakness, Numbness, Incoordination, Change in Speech, Confusion, Seizures, Altered Mental Status, Headache Physical Exam - Physical Exam Appears: Non-toxic, Chronically Ill, Other (awake,alert, oriented x3, appears mildly uncomfortable) Skin: Normal Color, Warm, Dry, No Rash Head: Atraumatic, Normacephalic Eye(s): bilateral: Normal Inspection (no nystagmus ), PERRL, EOMI Oral Mucosa: Moist Neck: Normal ROM, No Midline Cervical Tenderness, No Paracervical Tenderness, No Step Off Deformity, Supple Chest: Symmetrical, Other (midline sternotomy scar) Cardiovascular: Rhythm Regular, Murmur (5/6 holosystolic murmur) Respiratory: No Accessory Muscle Use, No Rales, No Rhonchi, Wheezing (mild expiratory wheezing (L>R)) Gastrointestinal/Abdominal: Bowel Sounds, Soft, Tenderness (mild RUQ tenderness to palpation), No Guarding, No Rebound, Other ((-) Lam's, (-) McBurney's) Back: CVA Tenderness (right sided mild CVA tenderness) Extremity: No Pedal Edema, No Calf Tenderness Pulses: Left Dorsalis Pedis: Normal, Right Dorsalis Pedis: Normal Neurological/Psych: Oriented x3, Normal Speech, Normal Cognition, Normal Cranial Nerves, No Cerebellar Signs, Normal Motor, Normal Sensation ED Course And Treatment - Laboratory Results Result Diagrams: 01/12/19 14:25 01/15/19 14:15 Lab Results: Total Bilirubin 0.9 mg/dL (0.2-1.3) 01/12/19 14:25 AST 46 U/L (17-59) 01/12/19 14:25 ALT 29 U/L (21-72) 01/12/19 14:25 Alkaline Phosphatase 83 U/L (38-126) 01/12/19 14:25 Total Protein 8.5 g/dL (6.3-8.3) H 01/12/19 14:25 Albumin 4.6 g/dL (3.5-5.0) 01/12/19 14:25 Globulin 4.0 gm/dL (2.2-3.9) H 01/12/19 14:25 Albumin/Globulin Ratio 1.1 (1.0-2.1) 01/12/19 14:25 Lipase 238 U/L (23-300) 01/12/19 14:25 ECG: Interpreted By Me, Viewed By Me (NSR 73 bpm, normal axis, T wave nversions I, II, aVL, V2-V6, no acute ST changes) ECG Interpretation: Abnormal (new T wave inversions when compared to prior EKG) O2 Sat by Pulse Oximetry: 100 (RA) Pulse Ox Interpretation: Normal - Other Rad CXR X-Ray: Viewed By Me, Read By Radiologist Interpretation: Date of service: 01/12/2019. PROCEDURE: CHEST RADIOGRAPH, 1 VIEW. HISTORY: Cough. COMPARISON: 07/05/2018. FINDINGS: LUNGS: The lungs are well inflated and clear. PLEURA: No pneumothorax or pleural effusion. CARDIOVASCULAR: There is moderate cardiomegaly. Status post CABG. There are aortic atherosclerotic calcifications present. OSSEOUS STRUCTURES: Within normal limits for the patient's age. VISUALIZED UPPER ABDOMEN: Normal. OTHER FINDINGS: None. IMPRESSION: No active pulmonary disease. Progress Note: Blood work, UA, EKG, CXR ordered and reviewed. Patient given albuterol neb treatment, IV zofran, IV protonix. EKG abnormal with new EKG ch anges - PO ASA given, as well as Kdur for mild hypokalemia. Reevaluation Time: 16:30 Reassessment Condition: Improved (Patient currently resting comfortably, states he feels better.) - Physician Consult Information Physician Contacted: Dennys Vasquez Outcome Of Conversation: Discussed patient with PMd, agrees with obs telemetry for abnormal EKG with new changes, dizziness, alcohol dependence. Disposition - Disposition Disposition: HOSPITALIZED Disposition Time: 16:56 Condition: STABLE - Clinical Impression Clinical Impression: Alcohol dependence, Abnormal EKG, Dizziness - Scribe Statement The provider has reviewed the documentation as recorded by the Dora Nunes Provider Attestation: All medical record entries made by the Hilarioibe were at my direction and personally dictated by me. I have reviewed the chart and agree that the record accurately reflects my personal performance of the history, physical exam, medical decision making, and the department course for this patient. I have also personally directed, reviewed, and agree with the discharge instructions and disposition. Decision To Admit - Pt Status Changed To: Hospital Disposition Of: Observation - . Bed Request Type: Telemetry Admitting Physician: Dennys Vasquez Patient Diagnosis: Dizziness, Abnormal EKG, Alcohol dependence
[2019-01-12 15:13] LABS: BASO # 0.1 K/uL (0.0-0.2); EOS # 0.1 K/uL (0.0-0.7); LYMPH # 0.6 K/uL (1.0-4.3); MONO # 0.8 K/uL (0.0-0.8); NEUT # 8.3 K/uL (1.8-7.0)
[2019-01-12 15:15] LABS: ANISOCYTOSIS SLIGHT; HYPOCHROMIC SLIGHT; LYMPHOCYTE 8 % (20-40); MONOCYTE 10 % (0-10); NEUTROPHIL 82 % (50-75); PLATELET ESTIMATE NORMAL (NORMAL); POIKILOCYTOSIS SLIGHT; TOTAL CELLS COUNTED 100
[2019-01-12 15:16] LABS: LARGE PLATELETS PRESENT; MICROCYTOSIS SLIGHT; OVALOCYTES SLIGHT; TARGET CELLS SLIGHT
--- NOTE | 2019-01-12 15:26 | RAD ---
Date of service: 01/12/2019 PROCEDURE: CHEST RADIOGRAPH, 1 VIEW HISTORY: Cough COMPARISON: 07/05/2018. FINDINGS: LUNGS: The lungs are well inflated and clear. PLEURA: No pneumothorax or pleural effusion. CARDIOVASCULAR: There is moderate cardiomegaly. Status post CABG. There are aortic atherosclerotic calcifications present. OSSEOUS STRUCTURES: Within normal limits for the patient's age. VISUALIZED UPPER ABDOMEN: Normal. OTHER FINDINGS: None. IMPRESSION: No active pulmonary disease.
[2019-01-12 15:54] LABS: CK-MB 2.68 ng/mL (0.0-3.38)
[2019-01-12] MEDS ORDERED: Potassium Chloride 20 mEq ER Tab PO STA (16:30)
[2019-01-12] MEDS ORDERED: Potassium Chloride 20 mEq ER Tab PO ONE (16:36)
[2019-01-12] MEDS ORDERED: Albuterol-Ipratrop 3 mg / 0.5 (3 ml) UD INH PRN (21:08)
[2019-01-12] MEDS ORDERED: Potassium Chloride 20 mEq/15 ml LIQ UD PO STA (21:11)
--- NOTE | 2019-01-12 21:13 | CP.PCM.HP ---
Present on Admission - Present on Admission Any Indicators Present on Admission: No Past Patient History - Infectious Disease Hx of Infectious Diseases: None - Past Medical History & Family History Past Medical History?: Yes - Past Social History Smoking Status: Light Smoker < 10 Cigarettes Daily - CARDIAC Hx Cardia Arrhythmia: Yes Hx Hypercholesterolemia: Yes Hx Hypertension: Yes - PULMONARY Hx Asthma: Yes Hx Bronchitis: Yes Hx Chronic Obstructive Pulmonary Disease (COPD): Yes Hx Emphysema: Yes Hx Pneumonia: Yes Hx Pulmonary Embolism: No Hx Sleep Apnea: Yes - NEUROLOGICAL Hx Migraine: Yes Hx Seizures: Yes (ETOH related) - HEENT Hx HEENT Problems: No - RENAL Hx Chronic Kidney Disease: No - ENDOCRINE/METABOLIC Hx Hyperthyroidism: No Hx Hypothyroidism: No - HEMATOLOGICAL/ONCOLOGICAL Hx Anemia: No Hx Human Immunodeficiency Virus (HIV): No Hx Sickle Cell Disease: No - INTEGUMENTARY Hx Dermatological Problems: No - MUSCULOSKELETAL/RHEUMATOLOGICAL Hx Arthritis: Yes Hx Fractures: No - GASTROINTESTINAL Hx Diverticulitis: No Hx Gastritis: Yes Hx Pancreatitis: Yes - GENITOURINARY/GYNECOLOGICAL Hx Sexually Transmitted Disorders: No - PSYCHIATRIC Hx Anxiety: Yes Hx Bipolar Disorder: Yes Hx Depression: Yes Hx Substance Use: Yes - SURGICAL HISTORY Hx Coronary Artery Bypass Graft: Yes ((quadruple bypass) 2010) Hx Coronary Stent: Yes - ANESTHESIA Hx Anesthesia: Yes Hx Anesthesia Reactions: No Hx Malignant Hyperthermia: No Meds Allergies/Adverse Reactions: Allergies Allergy/AdvReac Type Severity Reaction Status Date / Time No Known Allergies Allergy Verified 11/06/18 21:57 Results - Vital Signs Recent Vital Signs: Last Vital Signs Temp 98.7 F 01/12/19 19:54 Pulse 74 01/12/19 19:54 Resp 20 01/12/19 19:54 BP 109/54 L 01/12/19 19:54 Pulse Ox 100 01/12/19 19:54 - Labs Result Diagrams: 01/12/19 14:25 01/12/19 14:25 Labs: Laboratory Results - last 24 hr 01/12/19 01/12/19 01/12/19 14:25 14:25 14:25 WBC 9.9 D RBC 5.35 Hgb 10.9 L Hct 37.0 MCV 69.2 L D MCH 20.5 L MCHC 29.6 L RDW 20.4 H Plt Count 180 MPV 9.8 Neut % (Auto) 84.0 H Lymph % (Auto) 6.0 L [place] % (Auto) 8.0 Eos % (Auto) 1.0 Baso % (Auto) 1.0 Neut # (Auto) 8.3 H Lymph # (Auto) 0.6 L [place] # (Auto) 0.8 Eos # (Auto) 0.1 Baso # (Auto) 0.1 Neutrophils % (Manual) 82 H Lymphocytes % (Manual) 8 L Monocytes % (Manual) 10 Platelet Estimate Normal Large Platelets Present Hypochromasia (manual) Slight Poikilocytosis (manual Slight Anisocytosis (manual) Slight Microcytosis (manual) Slight Target Cells Slight Ovalocytes Slight Sodium 136 Potassium 3.5 L Chloride 96 L Carbon Dioxide 26 Anion Gap 17 BUN 16 Creatinine 1.1 Est GFR ( Amer) > 60 Est GFR (Non-Af Amer) > 60 POC Glucose (mg/dL) Random Glucose 170 H D Calcium 9.1 Total Bilirubin 0.9 AST 46 ALT 29 Alkaline Phosphatase 83 Total Creatine Kinase 78 CK-MB (Mass) 2.68 Troponin I 0.0190 Total Protein 8.5 H Albumin 4.6 Globulin 4.0 H Albumin/Globulin Ratio 1.1 Lipase 238 Alcohol, Quantitative < 10 01/12/19 14:38 WBC RBC Hgb Hct MCV MCH MCHC RDW Plt Count MPV Neut % (Auto) Lymph % (Auto) [place] % (Auto) Eos % (Auto) Baso % (Auto) Neut # (Auto) Lymph # (Auto) [place] # (Auto) Eos # (Auto) Baso # (Auto) Neutrophils % (Manual) Lymphocytes % (Manual) Monocytes % (Manual) Platelet Estimate Large Platelets Hypochromasia (manual) Poikilocytosis (manual Anisocytosis (manual) Microcytosis (manual) Target Cells Ovalocytes Sodium Potassium Chloride Carbon Dioxide Anion Gap BUN Creatinine Est GFR ( Amer) Est GFR (Non-Af Amer) POC Glucose (mg/dL) 142 H Random Glucose Calcium Total Bilirubin AST ALT Alkaline Phosphatase Total Creatine Kinase CK-MB (Mass) Troponin I Total Protein Albumin Globulin Albumin/Globulin Ratio Lipase Alcohol, Quantitative
[2019-01-12 22:58] LABS: SQUAMOUS EPITHIAL 1 /hpf (0-5); URINE BILIRUBIN NEGATIVE (NEGATIVE); URINE BLOOD NEGATIVE (NEGATIVE); URINE CLARITY Hazy (Clear); URINE COLOR Amber (YELLOW); URINE GLUCOSE (UA) NORMAL (Normal); URINE HYALINE CAST >20 /lpf (0-2); URINE LEUKOCYTE ESTERASE NEG Leu/uL (Negative); URINE PROTEIN 2+ mg/dL (NEGATIVE)
[2019-01-12 23:25] LABS: CK-MB 1.87 ng/mL (0.0-3.38); TROPONIN I 0.025 ng/mL (0.00-0.120)
--- NOTE | 2019-01-13 05:55 | HP ---
CHIEF COMPLAINT: Chest pain. HISTORY OF PRESENT ILLNESS: This is a 63-year-old white male, well known to me with history of major depression, alcoholism with history of multiple hospitalizations from alcohol intoxication, alcohol withdrawal, delirium, hypertension, hyperlipidemia, and chronic heavy smoker. He is noncompliant with his diet, medication, and followup. He has history of coronary artery bypass grafting about 7 years ago. He is noncompliant with his medications. The patient has not been feeling well. He has been feeling weak and dizzy. He has not been sleeping well, and he has been feeling chills and rigors for the past few days, and then this morning, he took some medication that was prescribed to him for his flu back in 11/2018. After he took medication, he felt lightheaded. He has chronic nonproductive cough, dry heaves, and he feels nauseous. He has been having decrease in oral intake, weakness, dizziness, and he has back pain, hip pain, leg pain. He denies any history of head injury, fall, or loss of consciousness. He denies any history of chest pain. He denies any history of dyspnea on exertion, orthopnea, paroxysmal nocturnal dyspnea. He denies any diarrhea. He denies any dysuria, hematuria, or pyuria. PAST MEDICAL HISTORY: Coronary artery disease, status post CABG; hypertension; depression; hyperlipidemia; and alcoholism. SOCIAL HISTORY: He smokes and he drinks. He lives alone. FAMILY HISTORY: Negative for premature coronary artery disease. CURRENT MEDICATIONS: At home, he is supposed to be on Topamax, multivitamin, losartan, Pravachol, pantoprazole, ibuprofen p.r.n., gabapentin, Lexapro, Pletal, Ecotrin, DuoNeb, and Campral. PHYSICAL EXAMINATION: GENERAL: An elderly male, in distress. VITAL SIGNS: Blood pressure 109/54, pulse 74, respiratory rate 20, temperature 98.7. SKIN: Senile turgor. No bruises. No purpura. No petechiae. HEENT: Atraumatic, normocephalic. Negative pallor. Negative jaundice. Extraocular movements are intact. NECK: Supple. No JVD. No lymph nodes. No thyromegaly. CHEST WALL: Bilateral symmetrical expansion. No tenderness. No deformity. LUNGS: Bilaterally clear. No rales. No rhonchi. CARDIOVASCULAR SYSTEM: PMI not localized. S1, S2 regular. No heave. No thrill. ABDOMEN: Soft, nontender. Bowel sounds are positive. EXTREMITIES: No clubbing, cyanosis, or edema. CENTRAL NERVOUS SYSTEM: Awake, alert, and oriented x3. Cranial nerves II through XII are normal. Power 5/5 x4. Plantars are downgoing. ASSESSMENT: 1. Chest pain, rule out myocardial infarction in a patient with coronary artery disease with multiple risk factors. 2. Hypertension 3. Alcoholism. 4. Depression. 5. Hyperlipidemia. PLAN: Admit. Detailed orders written. Seen and examined. Dennys Vasquez MD
[2019-01-13] MEDS: Multivitamin With Minerals Tab PO SCH (09:28)
[2019-01-13] MEDS: Enoxaparin 40 mg Syringe SC SCH (09:29)
[2019-01-13] MEDS: Cilostazol 100 mg Tab UD PO SCH ×2 (09:29→17:35)
[2019-01-13] MEDS: Pantoprazole 40 mg EC Tab PO SCH (09:29)
--- NOTE | 2019-01-13 10:31 | PCM.PSYCH ---
Initial Psychiatric Evaluation - Initial Psychiatric Evaluation Type of Admission: Voluntary Legal Status: Capacity Chief Complaint (in patient's own words): I relapsed on drinking History of Present Illness and Precipitating Events: Psychiatry consulted for 63yo Caucasiann male with PMH of DM, HTN, HLD, CAD, COPD, asthma, EtOH abuse, and bipolar disorder, with new onset dizziness after taking medications. Patient quit drinking 4 days ago and has since also cut down on his smoking, because he does not want to get sick anymore. Patient states he had headache, nausea, diarrhea, anxiety, and tremors for three days after he stopped drinking, and then he gained some relief once he initiated treatment at the hospital. Patient still complains of headache, anxiety, abdominal discomfort, and diarrhea, stating that he cannot hold fluids). Patient states he is depressed due to conflicts with his son. He feels guilty about how their relationship has developed, has been sleeping 2 hours/night, he reports poor appetite and denies suicidal ideation. Patient denies auditory/visual hallucinations. He has a history of suicide attempt (drinking heavily while taking multiple prescription drugs), patient cannot recall how log ago this was Patient says his last admission was 4-5 months ago and that he briefly attended AA after that admission. He would consider rejoining AA and speaking to a counselor. He does not recall dates of other admissions or how many times he has been admitted. Housing: lived alone until recently, when he invited an long-time acquaintance to live with him EtOH: Until Thursday he was drinking 1 pint of rum daily, he has not been craving alcohol Tobacco: has been smoking 1ppd for 40 years and cut down to 1/2 ppd this week, he still craves cigarettes after meals Patient states he follows with his psychiatrist, Dr. Vasquez, and is taking medications, but he has also stated that he was dumped by his psychiatrist and has not taken his respective (unnamed) medications for several weeks. Current Medications: Active Medications Generic Name Dose Route Start Last Admin Trade Name Freq PRN Reason Stop Dose Admin Albuterol/Ipratropium 3 ml 01/12/19 21:08 Duoneb 3 Mg/0.5 Mg (3 Ml) Ud INH RQ6 PRN Shortness of Breath Aspirin 81 mg 01/13/19 10:00 01/13/19 09:29 Ecotrin PO 81 mg DAILY EMILIE Administration Cilostazol 100 mg 01/13/19 10:00 01/13/19 09:29 Pletal PO 100 mg BID EMILIE Administration Enoxaparin Sodium 40 mg 01/13/19 10:00 01/13/19 09:29 Lovenox SC 40 mg DAILY EMILIE Administration Escitalopram Oxalate 10 mg 01/13/19 10:00 01/13/19 09:28 Lexapro PO 10 mg DAILY EMILIE Administration Folic Acid 1 mg 01/13/19 10:00 01/13/19 09:28 Folic Acid PO 1 mg DAILY EMILIE Administration Gabapentin 100 mg 01/13/19 10:00 01/13/19 09:28 Neurontin PO 100 mg TID EMILIE Administration Losartan Potassium 50 mg 01/13/19 10:00 01/13/19 09:28 Cozaar PO 50 mg DAILY EMILIE Administration Multivitamins/Minerals 1 tab 01/13/19 10:00 01/13/19 09:28 Therapeutic-M Tab PO 1 tab DAILY EMILIE Administration Pantoprazole Sodium 40 mg 01/13/19 10:00 01/13/19 09:29 Protonix Ec Tab PO 40 mg DAILY EMILIE Administration Rosuvastatin Calcium 5 mg 01/12/19 22:00 01/12/19 22:08 Crestor PO 5 mg HS EMILIE Administration Tamsulosin HCl 0.4 mg 01/13/19 10:00 01/13/19 09:29 Flomax PO 0.4 mg DAILY EMILIE Administration Thiamine HCl 100 mg 01/13/19 10:00 01/13/19 09:28 Vitamin B1 Tab PO 100 mg DAILY EMILIE Administration Topiramate 50 mg 01/13/19 10:00 01/13/19 09:28 Topamax PO 50 mg BID EMILIE Administration Past Psychiatric History - Past Psychiatric History Previous Treatment History: Inpatient Pertinent Medical Hx (Current Medical&Sleep Prob, Allergies): Allergies Allergy/AdvReac Type Severity Reaction Status Date / Time No Known Allergies Allergy Verified 11/06/18 21:57 Topiramate [Topamax] 50 mg PO BID #60 tab 11/20/17 Pantoprazole Sodium [Protonix] 40 mg PO DAILY 11/29/17 Folic Acid 1 mg PO DAILY tab 12/03/17 Gabapentin [Neurontin] 100 mg PO TID #90 cap 12/03/17 Losartan [Cozaar] 50 mg PO DAILY #30 tab 12/03/17 Thiamine [Vitamin B1 Tab] 100 mg PO DAILY tab 12/03/17 Aspirin [Ecotrin] 81 mg PO DAILY tabec 01/25/18 Multimineral/Multivitamin [Therapeutic-M Tab] 1 tab PO DAILY tab 02/09/18 Albuterol/Ipratropium [Duoneb 3 mg/0.5 mg (3 ml) UD] 3 ml INH RQ6 PRN 02/13/18 Escitalopram [Lexapro] 10 mg PO DAILY #30 tab 02/25/18 Ibuprofen 200 mg PO PRN PRN 07/05/18 Pravastatin Sodium 40 mg PO HS 07/05/18 Acamprosate Calcium 2 tab PO TID 07/06/18 Cilostazol [Pletal] 100 mg PO BID #60 tab 10/26/18 Tamsulosin [Flomax] 0.4 mg PO DAILY #30 cap 10/26/18 Review of Systems - Review of Systems All systems: reviewed and no additional remarkable complaints except - Psychiatric Psychiatric: Anxiety, Irritability. absent: Suicidal Ideation Mental Status Examination - Personal Presentation Personal Presentation: Looks stated age - Affect Affect: Constricted - Motor Activity Motor Activity: Calm - Reliability in Providing Information Reliability in Providing Information: Good - Speech Speech: Organized - Mood Mood: Anxious - Formal Thought Process Formal Thought Process: No Impairment - Obsessions/Compulsions Obsessions: No Compulsions: No - Cognitive Functions Orientation: Person, Place, Situation, Time Sensorium: Alert Attention/Concentration: Attentive Abstract Thinking: [place] Estimate of Intelligence: Below average Judgement: Imparied, as evidence by: Poor judgement, Intact, as evidence by: Good judgement - Risk Risk: Diminished functioning - Limitations Limitations: Living alone DSM 5 DX - DSM 5 DSM 5 Diagnosis: Alcohol use disorder severe Bipolar disorder mixed moderate - Recommended/Plan of Treatment Treatment Recommendations and Plan of Treatment: Supportive therapy Psychoeducation Continue Neurontin/Lexapro/Topamax Patient psychiatrically stable and cleared
[2019-01-13] MEDS: Sodium Chloride 0.9% 1,000 ML IV SCH ×2 (13:38→22:28)
[2019-01-13] MEDS: Potassium Chloride 20 mEq ER Tab PO SCH (17:35)
--- NOTE | 2019-01-13 21:19 | CP.PCM.PN ---
Subjective - Date & Time of Evaluation Date of Evaluation: 01/13/19 Time of Evaluation: 09:20 - Subjective Subjective: dictated Objective - Vital Signs/Intake and Output Vital Signs (last 24 hours): Temp Pulse Resp BP Pulse Ox 99.7 F H 73 20 105/59 L 99 01/13/19 15:37 01/13/19 20:00 01/13/19 15:37 01/13/19 15:37 01/13/19 15:37 Intake and Output: 01/13/19 01/14/19 18:59 06:59 Intake Total 725 Balance 725 - Medications Medications: Current Medications Albuterol/Ipratropium (Duoneb 3 Mg/0.5 Mg (3 Ml) Ud) 3 ml INH RQ6 PRN PRN Reason: Shortness of Breath Aspirin (Ecotrin) 81 mg PO DAILY [facility] Last Admin: 01/13/19 09:29 Dose: 81 mg Cilostazol (Pletal) 100 mg PO BID [facility] Last Admin: 01/13/19 17:35 Dose: 100 mg Enoxaparin Sodium (Lovenox) 40 mg SC DAILY [facility] Last Admin: 01/13/19 09:29 Dose: 40 mg Escitalopram Oxalate (Lexapro) 10 mg PO DAILY [facility] Last Admin: 01/13/19 09:28 Dose: 10 mg Folic Acid (Folic Acid) 1 mg PO DAILY [facility] Last Admin: 01/13/19 09:28 Dose: 1 mg Gabapentin (Neurontin) 100 mg PO TID [facility] Last Admin: 01/13/19 17:35 Dose: 100 mg Sodium Chloride (Sodium Chloride 0.9%) 1,000 mls @ 100 mls/hr IV .Q10H [facility] Last Admin: 01/13/19 13:38 Dose: 100 mls/hr Losartan Potassium (Cozaar) 50 mg PO DAILY [facility] Last Admin: 01/13/19 09:28 Dose: 50 mg Multivitamins/Minerals (Therapeutic-M Tab) 1 tab PO DAILY [facility] Last Admin: 01/13/19 09:28 Dose: 1 tab Pantoprazole Sodium (Protonix Ec Tab) 40 mg PO DAILY [facility] Last Admin: 01/13/19 09:29 Dose: 40 mg Potassium Chloride (K-Dur 20 Meq Er Tab) 20 meq PO DAILY [facility] Stop: 01/16/19 17:31 Last Admin: 01/13/19 17:35 Dose: 20 meq Rosuvastatin Calcium (Crestor) 5 mg PO HS [facility] Last Admin: 01/12/19 22:08 Dose: 5 mg Tamsulosin HCl (Flomax) 0.4 mg PO DAILY [facility] Last Admin: 01/13/19 09:29 Dose: 0.4 mg Thiamine HCl (Vitamin B1 Tab) 100 mg PO DAILY [facility] Last Admin: 01/13/19 09:28 Dose: 100 mg Topiramate (Topamax) 50 mg PO BID [facility] Last Admin: 01/13/19 17:35 Dose: 50 mg - Labs Labs: 01/12/19 14:25 01/12/19 14:25
--- NOTE | 2019-01-14 00:02 | PN ---
DATE: 01/13/2019 SUBJECTIVE: The patient is complaining of right upper quadrant abdominal pain. His troponin x3 are negative. He denies any nausea or vomiting. No cough. His EtOH level is less than 10. C. diff is negative. PHYSICAL EXAMINATION: VITAL SIGNS: Blood pressure is 105/59, pulse 78, respiratory rate 20, temperature 99.7. LUNGS: Clear. CENTRAL NERVOUS SYSTEM: S1 and S2. Regular. ABDOMEN: Soft and nontender. ASSESSMENT: 1. Alcoholism. 2. Depression. 3. Right upper quadrant pain. 4. Coronary artery disease. PLAN: Check abdominal ultrasound. The patient will need cardio evaluation. Monitor the patient. Dennys Vasquez MD
[2019-01-14] MEDS: Sodium Chloride 0.9% 1,000 ML IV SCH ×4 (01:55→22:17)
--- NOTE | 2019-01-14 02:23 | CON ---
DATE: 01/13/2019 CARDIOLOGY CONSULTATION REASON FOR CONSULTATION: Dizziness and shortness of breath. HISTORY OF PRESENT ILLNESS: The patient is a 63-year-old male who has history of hypertension, diabetes mellitus, coronary artery disease, status post coronary artery bypass surgery. The patient stated that following his bypass surgery he required coronary stenting at [facility]. The patient has history of hyperlipidemia. The patient is a heavy EtOH abuser and heavy smoker, and he is on nasal home O2. The patient at the time of my evaluation denies having chest pain. The patient admits to noncompliance with medications including aspirin. SOCIAL HISTORY: The patient is smoker, EtOH abuser. He moved recently apartment with a live-in helper. MEDICATIONS: Cozaar 50 mg once a day, Crestor 5 mg once a day, aspirin 81 mg once a day, folic acid 1 mg daily, Lexapro 10 mg once a day, Lovenox 40 mg subcutaneous once a day, Neurontin 100 mg t.i.d., Pletal 100 mg twice a day, thiamine 100 mg once a day. REVIEW OF SYSTEMS: No fever or chills. No recent fall. No palpitation. PHYSICAL EXAMINATION: GENERAL: The patient is a middle-aged male who does not appear to be in acute distress. VITAL SIGNS: Blood pressure 105/59, heart rate 78, temperature 99.7, respirations 20. HEENT: Pale conjunctivae. CHEST: Diffuse bilateral rhonchi. HEART: S1 and S2, regular. ABDOMEN: Soft. EXTREMITIES: No edema. LABORATORY DATA: Three sets of troponins are negative. SMA-7: Sodium 136, potassium 3.5, chloride 96, CO2 of 26, glucose 170, BUN 16, creatinine 1.1. Hemoglobin and hematocrit 10.9 and 37, white count and platelet count are within normal limits. EKG revealed sinus rhythm at rate of 79, T-wave abnormality, consider lateral ischemia, old septal infarct and possible left atrial enlargement. Chest x-ray revealed borderline cardiomegaly, right lower lobe haziness. Echocardiography study performed in 10/2017 revealed normal left ventricular systolic function and aortic sclerosis. The most recent cardiac catheterization performed in 07/2015 and the findings were: Severe multivessel coronary artery disease, patent bypass grafts, severe stenosis of the right posterior descending artery after the anastomosis. At that time, the patient was started Brilinta. No intervention was performed at that time. However, the patient at that time was considered for elective intervention on the right posterior descending artery via saphenous vein graft approach. The patient underwent this intervention on the same month, 07/2015, underwent successful PCI to the right posterior descending artery via saphenous vein graft with a bare-metal stent. ASSESSMENT: 1. Coronary artery disease, status post coronary bypass surgery with known severe napaimute vessel disease and stenting to the posterior descending artery via saphenous vein graft. 2. Chronic obstructive lung disease. 3. History of ethyl alcohol abuse. 4. Lateral ischemia, myocardial infarction is ruled out. 5. Mild hypokalemia. RECOMMENDATIONS: Continue Cozaar 50 mg once a day, Crestor 5 mg once a day, aspirin 81 mg once a day, Lovenox 40 mg subcutaneous once a day, Pletal 100 mg twice a day. Conservative medical approach is recommended as the patient is very poorly compliant even with the basic medications such as aspirin. The case will be discussed with Dr. Dennys Vasquez. Maxwell Moreno MD
[2019-01-14 07:36] LABS: BLOOD UREA NITROGEN 15 mg/dL (9-20); CALCIUM 8.4 mg/dl (8.6-10.4); GFR NON-AFRICAN AMERICAN > 60
--- NOTE | 2019-01-14 08:34 | US ---
Date of service: 01/13/2019 HISTORY: r upper quadarant pain COMPARISON: None. TECHNIQUE: Grayscale imaging was performed. FINDINGS: LIVER: Measures 15.6 cm. There is diffuse increased echogenicity of the liver parenchyma. No mass. No intrahepatic bile duct dilatation. GALLBLADDER: There are no gallstones, wall thickening or pericholecystic fluid. The sonographic Lam's sign is negative. COMMON BILE DUCT: Measures 3.0 mm. No stones. No dilatation. PANCREAS: Unremarkable as visualized. No mass. No ductal dilatation. RIGHT KIDNEY: Measures 10.2cm. Normal echogenicity. No calculus, mass, or hydronephrosis. There is a 3.1 x 2.6 x 2.9 cm septated cyst in the upper pole. LEFT KIDNEY: Measures 10.8cm. Normal echogenicity. No calculus, mass, or hydronephrosis. There is a 7 x 8 x 8 mm simple cyst in the upper pole. SPLEEN: Normal in size and contour. No mass. AORTA: No aneurysmal dilatation. IVC: Unremarkable. OTHER FINDINGS: None. IMPRESSION: Diffuse increased echogenicity in the liver may reflect hepatic steatosis however parenchymal infectious/ inflammatory etiologies cannot be entirely excluded. Clinical and laboratory correlation is advised. Cholelithiasis. 3.1 x 2.6 x 2.9 cm septated cyst in the upper pole of the right kidney. Follow-up ultrasound in 3-6 month interval is recommended to assess stability of this probably benign cyst. A preliminary report was provided by [facility].
[2019-01-14] MEDS: Multivitamin With Minerals Tab PO SCH (09:32)
[2019-01-14] MEDS: Potassium Chloride 20 mEq ER Tab PO SCH (09:32)
[2019-01-14] MEDS: Pantoprazole 40 mg EC Tab PO SCH (09:32)
[2019-01-14] MEDS: Enoxaparin 40 mg Syringe SC SCH (09:32)
[2019-01-14] MEDS: Cilostazol 100 mg Tab UD PO SCH ×2 (09:32→18:46)
[2019-01-14] MEDS ORDERED: Sodium Chloride 0.9% 1,000 ML IV SCH (09:36)
[2019-01-14] MEDS ORDERED: metroNIDAZOLE IV 500 mg/100 ml 500 MG/100 ML BAG IVPB SCH (09:45)
[2019-01-14] MEDS ORDERED: Potassium Chloride 20 mEq/15 ml LIQ UD PO STA (09:51)
[2019-01-14] MEDS ORDERED: Magnesium Sulfate 1 gm in D5W 1 GM/100 ML BAG IVPB SCH (10:00)
[2019-01-14] MEDS ORDERED: Potassium Chloride 20 mEq ER Tab PO ONE (10:00)
[2019-01-14] MEDS: Magnesium Sulfate 1 gm in D5W 1 GM/100 ML BAG IVPB SCH ×2 (10:52→11:48)
--- NOTE | 2019-01-14 17:31 | CP.PCM.PN ---
Subjective - Date & Time of Evaluation Date of Evaluation: 01/14/19 Time of Evaluation: 11:20 - Subjective Subjective: patient seen today, states feeling very week , dizziness , chest pain and RUQ pain , diarrhea continues every 2-3 hrs an d watery and poor p.o intake vss and labs reviewed- hypertensive despite with IVF Objective - Vital Signs/Intake and Output Vital Signs (last 24 hours): Temp Pulse Resp BP Pulse Ox 98.6 F 97 H 20 97/61 L 99 01/14/19 07:00 01/14/19 07:42 01/14/19 07:00 01/14/19 07:00 01/14/19 07:00 Intake and Output: 01/14/19 01/14/19 06:59 18:59 Intake Total 1970 Balance 1969 - Medications Medications: Current Medications Albuterol/Ipratropium (Duoneb 3 Mg/0.5 Mg (3 Ml) Ud) 3 ml INH RQ6 PRN PRN Reason: Shortness of Breath Aspirin (Ecotrin) 81 mg PO DAILY [facility] Last Admin: 01/14/19 09:32 Dose: 81 mg Cilostazol (Pletal) 100 mg PO BID [facility] Last Admin: 01/14/19 09:32 Dose: 100 mg Clopidogrel Bisulfate (Plavix) 75 mg PO DAILY [facility] Last Admin: 01/14/19 15:35 Dose: 75 mg Enoxaparin Sodium (Lovenox) 40 mg SC DAILY [facility] Last Admin: 01/14/19 09:32 Dose: 40 mg Escitalopram Oxalate (Lexapro) 10 mg PO DAILY [facility] Last Admin: 01/14/19 09:32 Dose: 10 mg Famotidine (Pepcid) 20 mg PO BID [facility] Folic Acid (Folic Acid) 1 mg PO DAILY [facility] Last Admin: 01/14/19 09:32 Dose: 1 mg Gabapentin (Neurontin) 100 mg PO TID [facility] Last Admin: 01/14/19 13:37 Dose: 100 mg Sodium Chloride (Sodium Chloride 0.9%) 1,000 mls @ 100 mls/hr IV .Q10H [facility] Last Admin: 01/14/19 10:53 Dose: 100 mls/hr Loperamide HCl (Imodium) 2 mg PO QID PRN PRN Reason: Diarrhea Last Admin: 01/14/19 11:48 Dose: 2 mg Magnesium Oxide (Mag-Ox) 400 mg PO BID [facility] Stop: 01/16/19 18:01 Multivitamins/Minerals (Therapeutic-M Tab) 1 tab PO DAILY [facility] Last Admin: 01/14/19 09:32 Dose: 1 tab Pantoprazole Sodium (Protonix Ec Tab) 40 mg PO DAILY [facility] Last Admin: 01/14/19 09:32 Dose: 40 mg Potassium Chloride (K-Dur 20 Meq Er Tab) 20 meq PO DAILY [facility] Stop: 01/16/19 17:31 Last Admin: 01/14/19 09:32 Dose: 20 meq Rosuvastatin Calcium (Crestor) 5 mg PO HS [facility] Last Admin: 01/13/19 21:22 Dose: 5 mg Tamsulosin HCl (Flomax) 0.4 mg PO DAILY [facility] Last Admin: 01/14/19 09:32 Dose: 0.4 mg Thiamine HCl (Vitamin B1 Tab) 100 mg PO DAILY [facility] Last Admin: 01/14/19 09:32 Dose: 100 mg Topiramate (Topamax) 50 mg PO BID [facility] Last Admin: 01/14/19 09:32 Dose: 50 mg - Labs Labs: 01/12/19 14:25 01/14/19 07:16 - Constitutional Appears: Other (looks sick ) - ENT Exam ENT Exam: Mucous Membranes Dry - Respiratory Exam Respiratory Exam: Clear to Ausculation Bilateral, NORMAL BREATHING PATTERN - Cardiovascular Exam Cardiovascular Exam: REGULAR RHYTHM - GI/Abdominal Exam GI & Abdominal Exam: Tenderness (RUQ) - Neurological Exam Neurological Exam: Abnormal Gait, Alert, Awake, Oriented x3 Assessment and Plan - Assessment and Plan (Free Text) Assessment: A/P 63 y/o male,w/PMhx of diabetes, HTN, and hyperlipidemia, and CABG , brought to ER by BLS for evaluation of dizziness Patietn continues have diarrhea and reported q 2-3 hrs associated with RUQ abdominal pain patient receiving IVF and bp noted low in 90"s K- Na mag low D/w Dr. Vasquez, patient require inpatient hospital admission , due to severity of his symptoms , needs IVF and close monitoring we will continue IVF and hold all BP medications , lesley cultures result pending - will hold off antibiotics until cultures are back will replaced K and mag and repeat labs in am
--- NOTE | 2019-01-14 18:40 | PN ---
DATE: 01/14/2019 SUBJECTIVE: The patient denies any chest pain. The shortness of breath has improved. PHYSICAL EXAMINATION: VITAL SIGNS: Blood pressure 197/61, heart 78, temperature 98.6, respirations 20. HEENT: Normocephalic. CHEST: Clear. HEART: S1 and S2 regular. EXTREMITIES: No edema. LABORATORY DATA: Today's potassium is 3.3 and magnesium is 1.8. Today's calcium is 8.4. Rest of chemistries within normal limit. ASSESSMENT: 1. Coronary artery disease status post coronary artery bypass surgery in 2010 and stenting to the posterior descending artery in 2014. The patient is extremely noncompliant. 2. Alcohol abuse. 3. Chronic obstructive pulmonary disease. 4. Hypokalemia and hypomagnesemia. RECOMMENDATIONS: Continue aspirin 81 mg once a day, folic acid 1 mg once a day, Imodium 2 mg daily, K-Dur 20 mEq daily, Lovenox 40 mg subcutaneus once a day, magnesium oxide 400 mg twice a day, thiamine 100 mg once a day. The patient did receive intravenous magnesium sulfate replacement. Obtain a followup BMP and magnesium level in the morning. Maxwell Moreno MD
[2019-01-14] MEDS: Magnesium Oxide 400 mg Tab UD PO SCH (18:46)
--- NOTE | 2019-01-15 01:08 | PN ---
DATE: 01/14/2019 SUBJECTIVE: The patient, Sherif Lombardi, is having persistent loose watery stool, low sodium, low magnesium, low potassium, weakness. His stool for C. diff is negative. His stool cultures are pending. He has abdominal discomfort. He has nausea, no vomiting. He is anxious. He is withdrawing from alcohol. He feels shaky, tremulous. He denies any fever or chills. He has no cough, no fever. PHYSICAL EXAMINATION: VITAL SIGNS: Blood pressure is 136/70, pulse 74, respiratory rate 16, and temperature 99. LUNGS: Decreased air entry. CENTRAL NERVOUS SYSTEM: S1 and S2, regular. ABDOMEN: Soft and nontender. Bowel sounds are positive. ASSESSMENT: 1. Persistent diarrhea. It could be withdrawal from alcohol. It could be gastroenteritis of viral origin. It could be colitis. 2. Dehydration, hypokalemia, hypomagnesemia. 3. Hypertension, but right now, he is hypotensive. PLAN: Switch the patient to inpatient because his blood pressure is low and he is dehydrated. He has persistent diarrhea. He has symptoms of alcohol withdrawal, and he has a potential to deteriorate, if the patient is not hydrated well and if withdrawals are not controlled and his electrolytes are not corrected. Dennys Vasquez MD
[2019-01-15] MEDS: Pantoprazole 40 mg EC Tab PO SCH (09:32)
[2019-01-15] MEDS: Cilostazol 100 mg Tab UD PO SCH ×2 (09:34→19:00)
[2019-01-15] MEDS: Enoxaparin 40 mg Syringe SC SCH (09:37)
[2019-01-15] MEDS: Magnesium Oxide 400 mg Tab UD PO SCH ×2 (10:07→17:48)
[2019-01-15] MEDS: Multivitamin With Minerals Tab PO SCH (10:07)
[2019-01-15] MEDS: Potassium Chloride 20 mEq ER Tab PO SCH (10:08)
--- NOTE | 2019-01-15 14:18 | PN ---
DATE: 01/15/2019 SUBJECTIVE: The patient is experiencing abdominal pain and diarrhea. No retrosternal chest pain. PHYSICAL EXAMINATION: VITAL SIGNS: Blood pressure 97/59, heart rate 79, temperature 98.2, respirations 20. HEENT: Pale conjunctivae. CHEST: Clear. HEART: S1 and S2 regular. ABDOMEN: Epigastric tenderness. ASSESSMENT: 1. Abdominal pain and diarrhea, rule out Clostridium difficile colitis. 2. Chest pain, myocardial infarction is ruled out. 3. Hypokalemia and hypomagnesemia. 4. Coronary artery disease, status post coronary artery bypass surgery in 2010 followed by coronary stenting 2014. RECOMMENDATIONS: Continue Crestor at 5 mg once a day, aspirin 81 mg once a day, K-Dur 20 milliequivalents once a day, Imodium 2 mg p.o. four times a day, Lovenox at 40 mg subcutaneous once a day, magnesium oxide 400 mg twice a day, Pletal 100 mg twice a day and Plavix 75 mg once a day. I requested stool for C. diff to be obtained and in the meantime, I will order BMP and magnesium level as a followup. Maxwell Moreno MD
[2019-01-15 14:36] LABS: BLOOD UREA NITROGEN 12 mg/dL (9-20); CALCIUM 8.5 mg/dl (8.6-10.4); GFR NON-AFRICAN AMERICAN > 60
[2019-01-15] MEDS: Sodium Chloride 0.9% 1,000 ML IV SCH (17:53)
[2019-01-16 02:23] VITALS: RESP 20
[2019-01-16 07:56] VITALS: BP 122/71; TEMP 98.1; O2SAT 100
--- NOTE | 2019-01-16 08:18 | CARD ---
APPROVED REPORT Date of service: 01/12/2019 EKG Measurement Heart [id number] <Conclusion> Normal sinus rhythm T wave abnormality, consider inferior ischemia T wave abnormality, consider anterolateral ischemia Abnormal ECG
[2019-01-16] MEDS: Cilostazol 100 mg Tab UD PO SCH (09:40)
[2019-01-16] MEDS: Pantoprazole 40 mg EC Tab PO SCH (09:40)
[2019-01-16] MEDS: Multivitamin With Minerals Tab PO SCH (09:40)
[2019-01-16] MEDS: Magnesium Oxide 400 mg Tab UD PO SCH (09:40)
[2019-01-16] MEDS: Enoxaparin 40 mg Syringe SC SCH (09:41)
[2019-01-16] MEDS: Potassium Chloride 20 mEq ER Tab PO SCH (09:41)
[2019-01-16 11:07] VITALS: PULSE 77
--- NOTE | 2019-01-16 19:23 | PN ---
DATE: 01/16/2019 SUBJECTIVE: The patient denies any abdominal pain or diarrhea. PHYSICAL EXAMINATION: VITAL SIGNS: Blood pressure 122/71, heart rate 71, temperature 98.4, respirations 20. HEENT: Normocephalic. CHEST: Clear. HEART: S1 and S2 regular. EXTREMITIES: No edema. LABORATORY DATA: Clostridium difficile antigen and toxin are negative. ASSESSMENT: 1. Chest pain, myocardial infarction is ruled out. 2. Coronary artery disease status post coronary artery bypass surgery followed by stenting to the posterior descending artery. 3. Alcohol abuse. 4. Chronic obstructive lung disease. RECOMMENDATIONS: The case is discussed with Dr. Dennys Vasquez, the primary physician. The patient will be discharged on his current medications including Crestor 5 mg once a day, aspirin 81 mg once a day, Plavix 75 mg once a day, Pletal 100 mg twice a day, Protonix 40 mg p.o. once a day, Topamax 25 mg twice a day, and thiamine 100 mg once a day. Maxwell Moreno MD
--- NOTE | 2019-01-17 22:36 | CARD ---
APPROVED REPORT Date of service: 01/13/2019 EKG Measurement Heart [id number] <Conclusion> Normal sinus rhythm Possible Left atrial enlargement T wave abnormality, consider lateral ischemia Abnormal ECG
== END 2019-01-16 14:33 | disposition home or self-care (01) | DRG 149 ==
LOC: C.ER 13:51 → C.6T 16:56 → OBSVTOIN 01-14 17:41
PROVIDERS: ADMIT Internal Medicine; ATTEND Internal Medicine
DX: R42 Dizziness and giddiness (principal); I25.10 Atherosclerotic heart disease of native coronary artery without angina pectoris; F10.239 Alcohol dependence with withdrawal, unspecified; E86.0 Dehydration; T37.5X5A Adverse effect of antiviral drugs, initial encounter; E87.6 Hypokalemia; J11.1 Influenza due to unidentified influenza virus with other respiratory manifestations; J43.9 Emphysema, unspecified; I10 Essential (primary) hypertension; F31.62 Bipolar disorder, current episode mixed, moderate; E11.9 Type 2 diabetes mellitus without complications; E83.42 Hypomagnesemia; R19.7 Diarrhea, unspecified; G47.33 Obstructive sleep apnea (adult) (pediatric); E78.5 Hyperlipidemia, unspecified; N40.0 Benign prostatic hyperplasia without lower urinary tract symptoms; F17.210 Nicotine dependence, cigarettes, uncomplicated; F41.9 Anxiety disorder, unspecified; E78.00 Pure hypercholesterolemia, unspecified; Z95.5 Presence of coronary angioplasty implant and graft; Z95.1 Presence of aortocoronary bypass graft; Z91.5 Personal history of self-harm; Z87.01 Personal history of pneumonia (recurrent); Z91.11 Patient's noncompliance with dietary regimen; Z91.14 Patient's other noncompliance with medication regimen; Z91.19 Patient's noncompliance with other medical treatment and regimen

== ENCOUNTER 2019-01-27 22:04 | Emergency (ER) | payer OTHER ==
[2019-01-27 22:04] VITALS: BMI 27.2
[2019-01-27 22:24] VITALS: BP 122/68; PULSE 74; RESP 18; TEMP 98.6; O2SAT 99
[2019-01-27] MEDS ORDERED: Sodium Chloride 0.9% 1,000 ML IV ONE (23:33)
--- NOTE | 2019-01-27 23:35 | C.PDOC ---
History Of Present Illness 63 year old male presents to the ED requesting detox for alcohol abuse. Patient reports he has been drinking for the last 11 days straight. Patient also c/o mid abdominal pain, dry heaving. Patient denies SI/HI, hallucinations, injury, fall, trauma. Time Seen by Provider: 01/27/19 23:33 Chief Complaint (Nursing): Substance Abuse History Per: Patient History/Exam Limitations: intoxication Onset/Duration Of Symptoms: Days, Waxing/Waning Suicide/Self Injury Attempted (Context): None Modifying Factor(s): Alcohol Associated Symptoms: denies: Depression, Suicidal Thoughts, Suicidal Plan Recent travel outside of the [place]: No Additional History Per: Patient Past Medical History Reviewed: Historical Data, Nursing Documentation, Vital Signs Vital Signs: Last Vital Signs Temp 98.6 F 01/27/19 22:18 Pulse 74 01/27/19 22:18 Resp 18 01/27/19 22:18 BP 122/68 01/27/19 22:18 Pulse Ox 99 01/27/19 22:18 - Medical History PMH: Anxiety, Arthritis, Asthma, Benign Prostatic Hyperplasia, Bipolar Disorder, Bronchitis, CAD, Cardia Arrhythmia, COPD, Depression, Diabetes, Emphysema, Gastritis, Hepatitis (PATIENT STATED HE HAS HEPATITIS BUT COULD NOT RECALL WHICH ONE), HTN, Hypercholesterolemia, Hyperlipidemia, Migraine, Pancreatitis, Pneumonia, Seizures (ETOH related), Sleep Apnea Denies: Anemia, Diverticulitis, Fractures, HIV, Hyperthyroidism, Hypothyroidism, Pulmonary Embolism, Chronic Kidney Disease, Sickle Cell Disease, Sexually Transmitted Disease Surgical History: CABG ((quadruple bypass) 2010), Coronary Stent - [facility] ALCOHOL DETOXIFICATION (03/12/15) CORONAR ARTERIOGR-2 CATH (07/24/15) CORONARY ARTERY STENT INSERTION [id number] (07/24/15) DETOXIFICATION SERVICES FOR SUBSTANCE ABUSE TREATMENT (10/23/18) ESOPHAGOGASTRODUODENOSCOPY [EGD] W/CLOSED BIOPSY (05/21/13) EXCISION OF DESCENDING COLON, ENDO, DIAGN (06/01/17) EXCISION OF STOMACH, ENDO, DIAGN (06/01/17) GROUP PIG CONVEYOR OPERATOR FOR SUBSTANCE ABUSE TREATMENT, PSYCHOEDUCATION (10/23/18) GROUP PIG CONVEYOR OPERATOR FOR SUBSTANCE ABUSE, COGNITIVE BEHAVIORAL (10/23/18) GROUP PSYCHOTHERAPY (10/23/18) INDIV PSYCHOTHERAPY FOR SUBSTANCE ABUSE TREATMENT, SUPPORT (10/23/18) INDIV PSYCHOTHERAPY FOR SUBSTANCE ABUSE, COGNITIV BEHAVIORAL (10/23/18) INDIV PSYCHOTHERAPY FOR SUBSTANCE ABUSE, MOTIVATION ENHANCE (11/29/17) INDIV PSYCHOTHERAPY FOR SUBSTANCE ABUSE, PSYCHOEDUCATION (10/23/18) INDIVID PSYCHOTHERAP NEC (11/04/14) INDIVIDUAL PSYCHOTHERAPY, BEHAVIORAL (02/23/18) INDIVIDUAL PSYCHOTHERAPY, COGNITIVE-BEHAVIORAL (10/23/18) INDIVIDUAL PSYCHOTHERAPY, SUPPORTIVE (10/23/18) INSERTION OF ONE VASCULAR STENT (07/24/15) INTRODUCE OF OTH THERAP SUBST INTO RESP TRACT, VIA OPENING (02/05/18) IRRIGATION OF EAR (05/23/15) LEFT HEART CARDIAC CATH (07/19/15) LT HEART ANGIOCARDIOGRAM (07/19/15) OTHER GROUP THERAPY (11/04/14) PACKED CELL TRANSFUSION (05/21/13) PERCUTANEOUS TRANSLUMINAL CORONARY ANGIOPLASTY [PTCA] (07/24/15) PROCEDURE ON SINGLE VESSEL (07/24/15) PSYCHIAT DRUG THERAP NEC (11/04/14) RT HEART ANGIOCARDIOGRAM (07/22/15) RT HEART CARDIAC CATH (07/22/15) VACCINATION NEC (09/28/14) Family History: States: Unknown Family Hx - Social History Hx Tobacco Use: Yes Hx Alcohol Use: Yes Hx Substance Use: Yes - Immunization History Hx Tetanus Toxoid Vaccination: Yes Hx Influenza Vaccination: No Hx Pneumococcal Vaccination: Yes Review Of Systems Constitutional: Negative for: Fever, Chills Cardiovascular: Negative for: Chest Pain Respiratory: Negative for: Shortness of Breath Gastrointestinal: Positive for: Abdominal Pain. Negative for: Nausea, Vomiting Skin: Negative for: Rash Neurological: Negative for: Weakness, Numbness Psych: Negative for: Depression, Suicidal ideation Physical Exam - Physical Exam Appears: Non-toxic, No Acute Distress Skin: Warm, Dry Head: Normacephalic Eye(s): bilateral: Normal Inspection Neck: Supple Chest: Symmetrical Cardiovascular: Rhythm Regular Respiratory: No Rales, No Rhonchi, No Wheezing Gastrointestinal/Abdominal: Soft, Tenderness (mild mid epigastric), No Guarding, No Rebound Extremity: Bilateral: Atraumatic, Normal Color And Temperature, Normal ROM Neurological/Psych: Oriented x3, Normal Speech, Normal Cognition Gait: Steady ED Course And Treatment O2 Sat by Pulse Oximetry: 99 (ON RA) Pulse Ox Interpretation: Normal Progress Note: 22:39 PM went to re-examine the pt but pt had eloped Disposition Counseled Patient/Family Regarding: Studies Performed, Diagnosis - Disposition Disposition: ELOPEMENT - ER ONLY Disposition Time: 23:34 Condition: FAIR Forms: [facility] (Kittitian) - Clinical Impression Clinical Impression: Alcohol abuse - Scribe Statement The provider has reviewed the documentation as recorded by the Scribe Ap Garcia All medical record entries made by the Scribe were at my direction and personally dictated by me. I have reviewed the chart and agree that the record accurately reflects my personal performance of the history, physical exam, medical decision making, and the department course for this patient. I have also personally directed, reviewed, and agree with the discharge instructions and disposition.
== END 2019-01-27 23:40 | disposition left against medical advice (07) ==
LOC: C.ER 22:04
DX: F10.10 Alcohol abuse, uncomplicated (principal); E11.9 Type 2 diabetes mellitus without complications; E78.00 Pure hypercholesterolemia, unspecified; I10 Essential (primary) hypertension; I25.10 Atherosclerotic heart disease of native coronary artery without angina pectoris; J44.9 Chronic obstructive pulmonary disease, unspecified; E78.5 Hyperlipidemia, unspecified; N40.0 Benign prostatic hyperplasia without lower urinary tract symptoms; F31.9 Bipolar disorder, unspecified; Z72.0 Tobacco use

== ENCOUNTER 2019-03-01 13:12 | Observation (INO) | payer OTHER ==
[2019-03-01 13:12] VITALS: BMI 27.2
--- NOTE | 2019-03-01 13:50 | C.PDOC ---
History Of Present Illness Patient is a 63 year old male with pmhx of CAD(stents/CABG), HTN, HLD, sleep apnea, alcohol abuse, BPH, seizure hx who presents to ED at the request of his account consultant for evaluation and treatment of worsening fluid in his lungs and LE edema. Patient reports for the past 2 days he has had worsening LE edema and pain causing him difficulty ambulating. Reports chest tightness, SOB, cough are all chronic 2/2 his underlying conditions. Patient admits to be non-compliant with his medications as he is a drinker(1 pt/day) and does not want to mix medications with alcohol. Pt recently cut down on his drinking, from 2 pts to 1 pt daily. Reports seizure hx but unknown if associated with withdrawal. Pt reports last drink was last night, currently reporting tremors, dizziness 2/2 withdrawal. Denies LOC, palpitations, nausea, hematochezia, melena. <Vear Adan - Last Filed: 03/01/19 15:45> History Per: Patient History/Exam Limitations: no limitations Onset/Duration Of Symptoms: Days Current Symptoms Are (Timing): Still Present Quality: Tightness Associated Symptoms: denies: Nausea, Syncope Additional History Per: Family <Vera Adan - Last Filed: 03/01/19 15:45> <Jackelin Young - Last Filed: 03/03/19 18:37> Time Seen by Provider: 03/01/19 13:29 Chief Complaint (Nursing): Chest Pain Past Medical History Reviewed: Historical Data, Nursing Documentation, Vital Signs Vital Signs: Last Vital Signs Temp 97.5 F L 03/01/19 13:24 Pulse 73 03/01/19 13:24 Resp 20 03/01/19 13:24 BP 165/79 H 03/01/19 13:24 Pulse Ox 99 03/01/19 13:24 - Medical History PMH: Anxiety, Arthritis, Asthma, Benign Prostatic Hyperplasia, Bipolar Disorder, Bronchitis, CAD, Cardia Arrhythmia, COPD, Depression, Diabetes, Emphysema, Gastr itis, Hepatitis (PATIENT STATED HE HAS HEPATITIS BUT COULD NOT RECALL WHICH ONE), HTN, Hypercholesterolemia, Hyperlipidemia, Migraine, Pancreatitis, Pneumonia, Seizures (ETOH related), Sleep Apnea Denies: Anemia, Diverticulitis, Fractures, HIV, Hyperthyroidism, Hypothyroidism, Pulmonary Embolism, Chronic Kidney Disease, Sickle Cell Disease, Sexually Transmitted Disease Surgical History: CABG ((quadruple bypass) 2010), Coronary Stent - [facility] Procedures ALCOHOL DETOXIFICATION (03/12/15) CORONAR ARTERIOGR-2 CATH (07/24/15) CORONARY ARTERY STENT INSERTION [id number] (07/24/15) DETOXIFICATION SERVICES FOR SUBSTANCE ABUSE TREATMENT (10/23/18) ESOPHAGOGASTRODUODENOSCOPY [EGD] W/CLOSED BIOPSY (05/21/13) EXCISION OF DESCENDING COLON, ENDO, DIAGN (06/01/17) EXCISION OF STOMACH, ENDO, DIAGN (06/01/17) GROUP FRONT OFFICE ASSISTANT FOR SUBSTANCE ABUSE TREATMENT, PSYCHOEDUCATION (10/23/18) GROUP FRONT OFFICE ASSISTANT FOR SUBSTANCE ABUSE, COGNITIVE BEHAVIORAL (10/23/18) GROUP PSYCHOTHERAPY (10/23/18) INDIV PSYCHOTHERAPY FOR SUBSTANCE ABUSE TREATMENT, SUPPORT (10/23/18) INDIV PSYCHOTHERAPY FOR SUBSTANCE ABUSE, COGNITIV BEHAVIORAL (10/23/18) INDIV PSYCHOTHERAPY FOR SUBSTANCE ABUSE, MOTIVATION ENHANCE (11/29/17) INDIV PSYCHOTHERAPY FOR SUBSTANCE ABUSE, PSYCHOEDUCATION (10/23/18) INDIVID PSYCHOTHERAP NEC (11/04/14) INDIVIDUAL PSYCHOTHERAPY, BEHAVIORAL (02/23/18) INDIVIDUAL PSYCHOTHERAPY, COGNITIVE-BEHAVIORAL (10/23/18) INDIVIDUAL PSYCHOTHERAPY, SUPPORTIVE (10/23/18) INSERTION OF ONE VASCULAR STENT (07/24/15) INTRODUCE OF OTH THERAP SUBST INTO RESP TRACT, VIA OPENING (02/05/18) IRRIGATION OF EAR (05/23/15) LEFT HEART CARDIAC CATH (07/19/15) LT HEART ANGIOCARDIOGRAM (07/19/15) OTHER GROUP THERAPY (11/04/14) PACKED CELL TRANSFUSION (05/21/13) PERCUTANEOUS TRANSLUMINAL CORONARY ANGIOPLASTY [PTCA] (07/24/15) PROCEDURE ON SINGLE VESSEL (07/24/15) PSYCHIAT DRUG THERAP NEC (11/04/14) RT HEART ANGIOCARDIOGRAM (07/22/15) RT HEART CARDIAC CATH (07/22/15) VACCINATION NEC (09/28/14) Family History: States: Unknown Family Hx - Social History Hx Tobacco Use: Yes Hx Alcohol Use: Yes Hx Substance Use: Yes - Immunization History Hx Tetanus Toxoid Vaccination: Yes Hx Influenza Vaccination: No Hx Pneumococcal Vaccination: Yes <Adan,Vera - Last Filed: 03/01/19 15:45> Vital Signs: Last Vital Signs Temp 98.4 F 03/03/19 16:00 Pulse 81 03/03/19 16:00 Resp 20 03/03/19 16:00 BP 172/88 H 03/03/19 16:00 Pulse Ox 96 03/03/19 16:00 - [facility] Procedures ALCOHOL DETOXIFICATION (03/12/15) CORONAR ARTERIOGR-2 CATH (07/24/15) CORONARY ARTERY STENT INSERTION [id number] (07/24/15) DETOXIFICATION SERVICES FOR SUBSTANCE ABUSE TREATMENT (10/23/18) ESOPHAGOGASTRODUODENOSCOPY [EGD] W/CLOSED BIOPSY (05/21/13) EXCISION OF DESCENDING COLON, ENDO, DIAGN (06/01/17) EXCISION OF STOMACH, ENDO, DIAGN (06/01/17) GROUP FRONT OFFICE ASSISTANT FOR SUBSTANCE ABUSE TREATMENT, PSYCHOEDUCATION (10/23/18) GROUP FRONT OFFICE ASSISTANT FOR SUBSTANCE ABUSE, COGNITIVE BEHAVIORAL (10/23/18) GROUP PSYCHOTHERAPY (10/23/18) INDIV PSYCHOTHERAPY FOR SUBSTANCE ABUSE TREATMENT, SUPPORT (10/23/18) INDIV PSYCHOTHERAPY FOR SUBSTANCE ABUSE, COGNITIV BEHAVIORAL (10/23/18) INDIV PSYCHOTHERAPY FOR SUBSTANCE ABUSE, MOTIVATION ENHANCE (11/29/17) INDIV PSYCHOTHERAPY FOR SUBSTANCE ABUSE, PSYCHOEDUCATION (10/23/18) INDIVID PSYCHOTHERAP NEC (11/04/14) INDIVIDUAL PSYCHOTHERAPY, BEHAVIORAL (02/23/18) INDIVIDUAL PSYCHOTHERAPY, COGNITIVE-BEHAVIORAL (10/23/18) INDIVIDUAL PSYCHOTHERAPY, SUPPORTIVE (10/23/18) INSERTION OF ONE VASCULAR STENT (07/24/15) INTRODUCE OF OTH THERAP SUBST INTO RESP TRACT, VIA OPENING (02/05/18) IRRIGATION OF EAR (05/23/15) LEFT HEART CARDIAC CATH (07/19/15) LT HEART ANGIOCARDIOGRAM (07/19/15) OTHER GROUP THERAPY (11/04/14) PACKED CELL TRANSFUSION (05/21/13) PERCUTANEOUS TRANSLUMINAL CORONARY ANGIOPLASTY [PTCA] (07/24/15) PROCEDURE ON SINGLE VESSEL (07/24/15) PSYCHIAT DRUG THERAP NEC (11/04/14) RT HEART ANGIOCARDIOGRAM (07/22/15) RT HEART CARDIAC CATH (07/22/15) VACCINATION NEC (09/28/14) <Jackelin Young A - Last Filed: 03/03/19 18:37> Review Of Systems Constitutional: Positive for: Weakness Eyes: Negative for: Vision Change Cardiovascular: Positive for: Chest Pain, Edema, Light Headedness. Negative for: Palpitations Respiratory: Positive for: Cough, Shortness of Breath Gastrointestinal: Negative for: Nausea, Abdominal Pain Genitourinary: Positive for: Other (decreased frequency) Musculoskeletal: Positive for: Leg Pain <Vera Adan - Last Filed: 03/01/19 15:45> Physical Exam - Physical Exam Appears: Non-toxic, No Acute Distress Skin: Warm, Dry, Pale, No Cyanotic Head: Atraumatic, Normacephalic Eye(s): bilateral: Normal Inspection, PERRL, EOMI Oral Mucosa: Moist Chest: Symmetrical Cardiovascular: Rhythm Regular, Murmur Respiratory: Decreased Breath Sounds, No Accessory Muscle Use, No Wheezing Gastrointestinal/Abdominal: Normal Exam, Bowel Sounds, Soft, No Tenderness Rectal: Normal Exam, Rectal Tone, Heme Negative, Hemorrhoids Extremity: No Tenderness, Pedal Edema (3+ to above knees) Neurological/Psych: Oriented x3, Other (UE tremor) <Vera Adan - Last Filed: 03/01/19 15:45> ED Course And Treatment - Laboratory Results Result Diagrams: 03/01/19 14:21 03/01/19 14:21 Lab Interpretation: Abnormal Interpretation Of Abnormal: anemia ECG: Viewed By Me ECG Rhythm: Sinus Rhythm ECG Interpretation: Abnormal Interpretation Of ECG: NSR, HR 77. Possible inferior infarct, age undetermined. ST & T wave abnormality, consider anterolateral ischemia O2 Sat by Pulse Oximetry: 99 Pulse Ox Interpretation: Normal - Radiology CXR: Viewed By Me, Read By Radiologist CXR Interpretation: Yes: No Acute Disease, Cardiomegaly, Other (mild diffuse pulmonary venous congestion) <Vera Adan - Last Filed: 03/01/19 15:45> - Laboratory Results Result Diagrams: 03/03/19 17:22 03/03/19 17:00 Lab Results: PT 15.1 SECONDS (9.7-12.2) H 03/01/19 14:57 INR 1.4 03/01/19 14:57 APTT 43 SECONDS (21-34) H 03/01/19 14:57 Troponin I 0.0150 ng/mL (0.00-0.120) 03/01/19 22:22 NT-Pro-B Natriuret Pep 1030 pg/mL (0-900) H 03/01/19 14:21 Total Bilirubin 0.7 mg/dL (0.2-1.3) 03/03/19 17:00 AST 31 U/L (17-59) 03/03/19 17:00 ALT 64 U/L (21-72) 03/03/19 17:00 Alkaline Phosphatase 88 U/L (38-126) 03/03/19 17:00 Total Protein 6.5 g/dL (6.3-8.3) 03/03/19 17:00 Albumin 3.4 g/dL (3.5-5.0) L 03/03/19 17:00 Globulin 3.1 gm/dL (2.2-3.9) 03/03/19 17:00 Albumin/Globulin Ratio 1.1 (1.0-2.1) 03/03/19 17:00 Urine Color Yellow (YELLOW) 03/01/19 14:23 Urine Clarity Clear (Clear) 03/01/19 14:23 Urine pH 6.0 (5.0-8.0) 03/01/19 14:23 Ur Specific Gruver 1.005 (1.003-1.030) 03/01/19 14:23 Urine Protein Negative mg/dL (NEGATIVE) 03/01/19 14:23 Urine Glucose (UA) Negative mg/dL (Normal) 03/01/19 14:23 Urine Ketones Negative mg/dL (NEGATIVE) 03/01/19 14:23 Urine Blood Negative (NEGATIVE) 03/01/19 14:23 Urine Nitrate Negative (NEGATIVE) 03/01/19 14:23 Urine Bilirubin Negative (NEGATIVE) 03/01/19 14:23 Urine Urobilinogen 0.2 mg/dL (0.2-1.0) 03/01/19 14:23 Ur Leukocyte Esterase Negative Ellie/uL (Negative) 03/01/19 14:23 Urine WBC (Auto) 1 /hpf (0-5) 03/01/19 14:23 Urine RBC (Auto) < 1 /hpf (0-3) 03/01/19 14:23 Ur Squamous Epith Cells < 1 /hpf (0-5) 03/01/19 14:23 <Jackelin Young A - Last Filed: 03/03/19 18:37> Critical Care Time - Critical Care Note Total Time (in mins): 35 Documented critical care: time excludes all time spent performing seperately billable procedures. <Jackelin Young - Last Filed: 03/03/19 18:37> Medical Decision Making Medical Decision Makin63 year old male with LE edema, chest discomfort/SOB CBC CMP Mg/Phos BETZAIDA pBNP EKG CXR UA ASA Ativan Duonebs Hgb 5.7; transfuse 2U PRBC Guaiac negative Admit per Dr. Vasquez <Vera Adan - Last Filed: 03/01/19 15:45> Disposition Discussed With : Dennys Vasquez Comment: spoke with Dr. Vasquez who will admit patient Doctor Will See Patient In The: Hospital Counseled Patient/Family Regarding: Studies Performed, Diagnosis, Need For Followup, Smoking Cessation - Disposition Disposition Time: 15:41 - POA Present On Arrival: None <Vera Adan - Last Filed: 03/01/19 15:45> <Jackelin Young - Last Filed: 03/03/19 18:37> - Disposition Disposition: HOSPITALIZED Condition: SERIOUS - Clinical Impression Clinical Impression: Abnormal EKG, Chest discomfort, Anemia, CAD (coronary artery disease), COPD (chronic obstructive pulmonary disease) - PA / LAB ANIMAL TECHNICIAN / Resident Statement MD/DO has examined the patient and agrees with the treatment plan. <Jackelin Young - Last Filed: 03/03/19 18:37>
[2019-03-01] MEDS ORDERED: Aspirin 325 mg EC Tablets PO STA (14:00)
[2019-03-01 14:29] LABS: BASO # 0.1 K/uL (0.0-0.2); BASO % 1.2 % (0.0-2.0); EOS % 0.3 % (0.0-4.0); LYMPH # 1.6 K/uL (1.0-4.3); LYMPH % 31.3 % (20.0-40.0); MEAN CORPUSCULAR HEMOGLOBIN 17.6 pg (27.0-31.0); MEAN CORPUSCULAR HGB CONC 27.3 g/dL (33.0-37.0); MEAN PLATELET VOLUME 8.9 fL (7.2-11.7); MONO # 0.8 K/uL (0.0-0.8); MONO % 15.8 % (0.0-10.0); NEUT # 2.6 K/uL (1.8-7.0); NEUT % 51.4 % (50.0-75.0); NRBC % 0.6 % (0.0-2.0); RBC 3.25 Mil/uL (4.40-5.90); RED CELL DISTRIBUTION WIDTH 21.5 % (11.5-14.5); WHITE BLOOD COUNT 5.1 K/uL (4.8-10.8)
[2019-03-01 14:35] LABS: SQUAMOUS EPITHIAL < 1 /hpf (0-5)
[2019-03-01 14:38] LABS: URINE BILIRUBIN NEGATIVE (NEGATIVE); URINE BLOOD NEGATIVE (NEGATIVE); URINE CLARITY Clear (Clear); URINE COLOR YELLOW (YELLOW); URINE GLUCOSE (UA) NEGATIVE (Normal)
[2019-03-01 14:39] LABS: URINE LEUKOCYTE ESTERASE NEGATIVE Leu/uL (Negative); URINE PROTEIN NEGATIVE (NEGATIVE); URINE UROBILINOGEN 0.2 mg/dL (0.2-1.0)
[2019-03-01 14:41] LABS: ALB/GLOB RATIO 1.2 (1.0-2.1); ALBUMIN 3.5 g/dL (3.5-5.0); ALT/SGPT 123 U/L (21-72); AST/SGOT 82 U/L (17-59); BLOOD UREA NITROGEN 8 mg/dL (9-20); CALCIUM 8.4 mg/dl (8.6-10.4); GFR NON-AFRICAN AMERICAN > 60
[2019-03-01 14:46] LABS: HEMOGLOBIN 5.7 g/dL (12.0-18.0); MEAN CELL VOLUME 64.4 fL (80.0-94.0)
[2019-03-01 14:52] LABS: B-TYPE NATRIURETIC PEPTIDE 1030 pg/mL (0-900); CK-MB 5.21 ng/mL (0.0-3.38)
[2019-03-01 15:11] LABS: INR 1.4; PROTHROMBIN TIME 15.1 SECONDS (9.7-12.2)
[2019-03-01] MEDS ORDERED: Albuterol-Ipratrop 3 mg / 0.5 (3 ml) UD ONE (15:18)
[2019-03-01] MEDS: Albuterol-Ipratrop 3 mg / 0.5 (3 ml) UD INH PRN (15:19)
--- NOTE | 2019-03-01 15:32 | RAD ---
Date of service: 03/01/2019 HISTORY: SOB COMPARISON: Comparison made with prior chest 01/12/2019. TECHNIQUE: 1 view obtained. FINDINGS: LUNGS: Diffuse pulmonary venous congestive changes present.. PLEURA: No significant pleural effusion identified, no pneumothorax apparent. CARDIOVASCULAR: Mild aortic atherosclerotic calcification present. Cardiomegaly. Sternotomy wires and CABG clips.. No pulmonary vascular congestion. OSSEOUS STRUCTURES: No significant abnormalities. VISUALIZED UPPER ABDOMEN: Normal. OTHER FINDINGS: None. IMPRESSION: Mild diffuse pulmonary venous congestion. Cardiomegaly.
[2019-03-01] MEDS ORDERED: Potassium Chloride 20 mEq ER Tab PO ONE ×2 (18:00→19:14)
[2019-03-01] MEDS: Multivitamin (MVI) 10 ML, Thiamine 100 MG, Folic Acid 1 MG in Sodium Chloride 0.9% 1,00... IV ONE (19:02)
[2019-03-01] MEDS: Magnesium Oxide 400 mg Tab UD PO SCH (19:28)
[2019-03-01 22:45] LABS: IRON 58 ug/dL (49-181)
[2019-03-01 22:54] LABS: % IRON SATURATION 13 (20-55); TOTAL IRON BINDING CAPACITY 446 ug/dL (250-450)
[2019-03-02] MEDS: Multivitamin (MVI) 10 ML, Thiamine 100 MG, Folic Acid 1 MG in Sodium Chloride 0.9% 1,00... IV ONE (03:34)
[2019-03-02 06:49] LABS: BASO # 0.1 K/uL (0.0-0.2); BASO % 1.7 % (0.0-2.0); EOS # 0.1 K/uL (0.0-0.7); EOS % 0.9 % (0.0-4.0); HEMOGLOBIN 8.4 g/dL (12.0-18.0); LYMPH # 1.1 K/uL (1.0-4.3); LYMPH % 16.1 % (20.0-40.0); MEAN CORPUSCULAR HEMOGLOBIN 20.5 pg (27.0-31.0); MEAN CORPUSCULAR HGB CONC 29.7 g/dL (33.0-37.0); MEAN PLATELET VOLUME 10.1 fL (7.2-11.7); MONO # 1.2 K/uL (0.0-0.8); MONO % 18.1 % (0.0-10.0); NEUT # 4.3 K/uL (1.8-7.0); NEUT % 63.2 % (50.0-75.0); RBC 4.09 Mil/uL (4.40-5.90); WHITE BLOOD COUNT 6.8 K/uL (4.8-10.8)
[2019-03-02 07:19] LABS: IRON 42 ug/dL (49-181)
[2019-03-02 07:27] LABS: BLOOD UREA NITROGEN 10 mg/dL (9-20); CALCIUM 8.4 mg/dl (8.6-10.4); GFR NON-AFRICAN AMERICAN > 60
[2019-03-02 07:52] LABS: % IRON SATURATION 10 (20-55)
[2019-03-02] MEDS: Ferric Sodium Gluconat Complex 62.5 mg/5 ml Vial IVPB SCH (09:45)
[2019-03-02] MEDS: Magnesium Oxide 400 mg Tab UD PO SCH (09:48)
[2019-03-02] MEDS: Multivitamin With Minerals Tab PO SCH (09:49)
[2019-03-02] MEDS ORDERED: Potassium Chloride 20 mEq ER Tab PO ONE (13:15)
--- NOTE | 2019-03-02 14:00 | VASCLAB ---
Date of service: 03/02/2019 PROCEDURE: Lower Extremity Venous Duplex Exam. HISTORY: Leg pain PRIORS: Previous LEV 01/22/2018, normal. TECHNIQUE: Bilateral common femoral, femoral, popliteal and posterior tibial, peroneal and great saphenous veins were evaluated. Flow was assessed with color Doppler, compressibility, assessment of phasic flow and augmentation response. Report prepared by VELASQUEZ [place] FINDINGS: RIGHT: 1. Common Femoral Vein: 1.1. Compressibility - Fully compressible: Thrombus - None : Flow - Phasic: Augmentation -Normal: Reflux - None. 2. Femoral Vein: 2.1. Compressibility - Fully compressible: Thrombus - None : Flow - Phasic: Augmentation -Normal: Reflux - None. 3. Popliteal Vein: 3.1. Compressibility - Fully compressible: Thrombus - None : Flow - Phasic: Augmentation -Normal: Reflux - None. 4. Posterior Tibial Vein: 4.1. Compressibility - Fully compressible: Thrombus - None: Flow - Phasic: Augmentation -Normal: Reflux - None. 5. Peroneal Vein: 5.1. Compressibility - Fully compressible: Thrombus - None: Flow - Phasic: Augmentation -Normal: Reflux - None. 6. Great Saphenous Vein: (lower) 6.1. Compressibility - Fully compressible: Thrombus - None: Flow - Phasic: Augmentation - Normal: Reflux - None. LEFT: 1. Common Femoral Vein: 1.1. Compressibility - Fully compressible: Thrombus - None: Flow - Phasic: Augmentation -Normal: Reflux - None. 2. Femoral Vein: 2.1. Compressibility - Fully compressible: Thrombus - None: Flow - Phasic: Augmentation -Normal: Reflux - None. 3. Popliteal Vein: 3.1. Compressibility - Fully compressible: Thrombus - None : Flow - Phasic: Augmentation -Normal: Reflux - None. 4. Posterior Tibial Vein: 4.1. Compressibility - Fully compressible: Thrombus - None: Flow - Phasic: Augmentation -Normal: Reflux - None. 5. Peroneal Vein: 5.1. Compressibility - Fully compressible: Thrombus - None: Flow - Phasic: Augmentation -Normal: Reflux - None. 6. Great Saphenous Vein: (lower) 6.1. Compressibility - Fully compressible: Thrombus - None: Flow - Phasic: Augmentation - Normal: Reflux - None. OTHER FINDINGS: None significant. IMPRESSION: No evidence of deep or superficial vein thrombosis of bilateral lower extremities. Pulsatile venous flow and soft tissue edema noted bilaterally.
[2019-03-02] MEDS: Albuterol-Ipratrop 3 mg / 0.5 (3 ml) UD INH PRN (18:32)
--- NOTE | 2019-03-02 18:58 | CP.PCM.CON ---
History of Present Illness - History of Present Illness History of Present Illness: 63 year old male with a history of HTN, HL, CAD s/p CABG, alcoholism, presenting with progressive shortness of breath, found to have severe anemia. The patient notes to progressive dyspnea with exertion which prompted him to come to the ER. In the ER he was found to have a hgb of 5.7. He is s/p PRBC transfusion and notes to feeling better. He denies abnormal bleeding and bruising. He drinks alcohol daily. Past medical history: HTN, HL, CAD s/p CABG, alcoholism Past surgical history: Denies Family history: Denies hematologic and oncologic problems Social history: 1/2ppd, 1 pint rum daily, denies illicit drug use. Allergies: NKA Review of systems: All remaining review of systems including HEENT, cardiovascular, respiratory, gastrointestinal, genitourinary, musculoskeletal, dermatologic, neurologic, and psychiatric are negative unless mentioned in the HPI. Past Patient History - Infectious Disease Hx of Infectious Diseases: None - Past Medical History & Family History Past Medical History?: Yes - Past Social History Smoking Status: Former Smoker - CARDIAC Hx Hypertension: Yes - PULMONARY Hx Chronic Obstructive Pulmonary Disease (COPD): Yes - NEUROLOGICAL Hx Migraine: Yes Hx Seizures: Yes (ETOH related) - HEENT Hx HEENT Problems: No - RENAL Hx Chronic Kidney Disease: No - ENDOCRINE/METABOLIC Hx Hyperthyroidism: No Hx Hypothyroidism: No - HEMATOLOGICAL/ONCOLOGICAL Hx Anemia: No Hx Human Immunodeficiency Virus (HIV): No Hx Sickle Cell Disease: No - INTEGUMENTARY Hx Dermatological Problems: No - MUSCULOSKELETAL/RHEUMATOLOGICAL Hx Arthritis: Yes Hx Fractures: No - GASTROINTESTINAL Hx Diverticulitis: No Hx Gastritis: Yes Hx Pancreatitis: Yes - GENITOURINARY/GYNECOLOGICAL Hx Sexually Transmitted Disorders: No - PSYCHIATRIC Hx Anxiety: Yes Hx Bipolar Disorder: Yes Hx Depression: Yes Hx Substance Use: Yes - SURGICAL HISTORY Hx Coronary Artery Bypass Graft: Yes ((quadruple bypass) 2010) Hx Coronary Stent: Yes - ANESTHESIA Hx Anesthesia: Yes Hx Anesthesia Reactions: No Hx Malignant Hyperthermia: No Meds Allergies/Adverse Reactions: Allergies Allergy/AdvReac Type Severity Reaction Status Date / Time No Known Allergies Allergy Verified 03/01/19 13:29 - Medications Medications: Current Medications Albuterol/Ipratropium (Duoneb 3 Mg/0.5 Mg (3 Ml) Ud) 3 ml INH RQ4 PRN PRN Reason: Shortness of Breath Last Admin: 03/02/19 18:32 Dose: 3 ml Cyanocobalamin (Vitamin B12 1000 Mcg/Ml Inj) 1,000 mcg IM DAILY PENDING SALE TO [facility] Last Admin: 03/02/19 09:46 Dose: 1,000 mcg Escitalopram Oxalate (Lexapro) 10 mg PO DAILY PENDING SALE TO [facility] Last Admin: 03/02/19 09:48 Dose: 10 mg Ferric Sodium Gluconate Complex (Ferrlecit) 125 mg IVPB DAILY PENDING SALE TO [facility] Stop: 03/10/19 10:01 Last Admin: 03/02/19 09:45 Dose: 125 mg Folic Acid (Folic Acid) 1 mg PO DAILY PENDING SALE TO [facility] Last Admin: 03/02/19 09:49 Dose: 1 mg Gabapentin (Neurontin) 100 mg PO TID PENDING SALE TO [facility] Last Admin: 03/02/19 17:48 Dose: 100 mg Lorazepam (Ativan) 1 mg IVP Q6H PRN PRN Reason: Anxiety Losartan Potassium (Cozaar) 25 mg PO DAILY PENDING SALE TO [facility] Last Admin: 03/02/19 09:44 Dose: 25 mg Magnesium Oxide (Mag-Ox) 400 mg PO DAILY PENDING SALE TO [facility] Stop: 03/05/19 18:01 Last Admin: 03/02/19 09:48 Dose: 400 mg Multivitamins/Minerals (Therapeutic-M Tab) 1 tab PO DAILY PENDING SALE TO [facility] Last Admin: 03/02/19 09:49 Dose: 1 tab Pantoprazole Sodium (Protonix Inj) 40 mg IVP DAILY PENDING SALE TO [facility] Last Admin: 03/02/19 09:46 Dose: 40 mg Rosuvastatin Calcium (Crestor) 5 mg PO HS PENDING SALE TO [facility] Last Admin: 03/01/19 21:24 Dose: 5 mg Tamsulosin HCl (Flomax) 0.4 mg PO DAILY PENDING SALE TO [facility] Last Admin: 03/02/19 09:49 Dose: 0.4 mg Thiamine HCl (Vitamin B1 Tab) 100 mg PO DAILY PENDING SALE TO [facility] Last Admin: 03/02/19 09:49 Dose: 100 mg Topiramate (Topamax) 50 mg PO BID PENDING SALE TO [facility] Last Admin: 03/02/19 17:48 Dose: 50 mg Physical Exam - Head Exam Head Exam: ATRAUMATIC - Eye Exam Eye Exam: Normal appearance - ENT Exam ENT Exam: Mucous Membranes Dry - Respiratory Exam Respiratory Exam: NORMAL BREATHING PATTERN - Cardiovascular Exam Cardiovascular Exam: +S1, +S2 - GI/Abdominal Exam GI & Abdominal Exam: Normal Bowel Sounds - Extremities Exam Extremities exam: Positive for: normal inspection - Neurological Exam Neurological exam: Oriented x3 - Psychiatric Exam Psychiatric exam: Normal Affect, Normal Mood - Skin Skin Exam: Warm Results - Vital Signs Recent Vital Signs: Last Vital Signs Temp 98 F 03/02/19 07:00 Pulse 89 03/02/19 16:00 Resp 20 03/02/19 07:00 BP 182/78 H 03/02/19 07:00 Pulse Ox 99 03/02/19 07:00 - Labs Result Diagrams: 03/03/19 17:22 03/03/19 17:00 Labs: Laboratory Results - last 24 hr 03/01/19 03/01/19 03/01/19 15:18 22:22 22:22 WBC RBC Hgb Hct MCV MCH MCHC RDW Plt Count MPV Neut % (Auto) Lymph % (Auto) Posey % (Auto) Eos % (Auto) Baso % (Auto) Neut # (Auto) Lymph # (Auto) Posey # (Auto) Eos # (Auto) Baso # (Auto) Sodium Potassium Chloride Carbon Dioxide Anion Gap BUN Creatinine Est GFR ( Amer) Est GFR (Non-Af Amer) Random Glucose Calcium Iron 58 TIBC 446 % Saturation 13 L Troponin I 0.0150 Vitamin B12 Blood Type O POSITIVE Antibody Screen Negative 03/02/19 03/02/19 03/02/19 06:30 06:30 06:30 WBC 6.8 RBC 4.09 L Hgb 8.4 L D Hct 28.2 L MCV 69.0 L D MCH 20.5 L MCHC 29.7 L RDW 26.0 H Plt Count 141 MPV 10.1 Neut % (Auto) 63.2 Lymph % (Auto) 16.1 L Posey % (Auto) 18.1 H Eos % (Auto) 0.9 Baso % (Auto) 1.7 Neut # (Auto) 4.3 Lymph # (Auto) 1.1 Posey # (Auto) 1.2 H Eos # (Auto) 0.1 Baso # (Auto) 0.1 Sodium 139 Potassium 3.4 L Chloride 100 Carbon Dioxide 29 Anion Gap 13 BUN 10 Creatinine 1.0 Est GFR ( Amer) > 60 Est GFR (Non-Af Amer) > 60 Random Glucose 89 Calcium 8.4 L Iron 42 L TIBC % Saturation 10 L Troponin I Vitamin B12 690 Blood Type Antibody Screen Assessment & Plan (1) Anemia Assessment and Plan: work up consistent with iron deficiency anemia and bone marrow suppression from alcohol agree with PRBC transfusion will start IV iron likely occult GI blood loss; GI evaluation Status: Acute (2) Thrombocytopenia Assessment and Plan: mild bone marrow suppression from alcohol Thank you for this interesting consult. Status: Acute
--- NOTE | 2019-03-02 19:48 | CP.PCM.CON ---
History of Present Illness - History of Present Illness History of Present Illness: I was asked to see patient by Dr Vasquez. patient seen 03/02/191929 Patient is a 63 year old male with HTN hypercholesterolemia, CAD s/p CABG, PCI RPDA, chronic alcoholism who presents with dyspnea. Patient complains of progressive dyspnea on exertion and chest pain. He was found to have severe anemia. he denies current chest pain. he drinks alcohol regularly Review of Systems - Constitutional Constitutional: absent: As Per HPI, Anorexia, Chills, Daytime Sleepiness, Excessive Sweating, Fatigue, Fever, Frequent Falls, Headache, Increased Appetite, Lethargy, Malaise, Night Sweats, Snoring, Sleep Apnea, Weight Gain, Weight Loss, Weakness, Other - EENT Eyes: absent: As Per HPI, Blind Spots, Blurred Vision, Change in Vision, Decreased Night Vision, Diplopia, Discharge, Dry Eye, Exophthalmos, Floaters, Irritation, Itchy Eyes, Loss of Peripheral Vision, Pain, Photophobia, Requires Corrective Lenses, Sees Flashes, Spots in Vision, Tunnel Vision, Other Visual Disturbances, Loss of Vision, Other Ears: absent: As Per HPI, Decreased Hearing, Ear Discharge, Ear Pain, Tinnitus, Abnormal Hearing, Disequilibrium, Dizziness, Other Nose/Mouth/Throat: absent: As Per HPI, Epistaxis, Nasal Congestion, Nasal Discharge, Nasal Obstruction, Nasal Trauma, Nose Pain, Post Nasal Drip, Sinus Pain, Sinus Pressure, Bleeding Gums, Change in Voice, Dental Pain, Dry Mouth, Dysphagia, Halitosis, Hoarsness, Lip Swelling, Mouth Lesions, Mouth Pain, Odynophagia, Sore Throat, Throat Swelling, Tongue Swelling, Facial Pain, Neck Pain, Neck Mass, Other - Cardiovascular Cardiovascular: Dyspnea - Respiratory Respiratory: Dyspnea - Gastrointestinal Gastrointestinal: absent: As Per HPI, Abdominal Pain, Belching, Bloating, Change in Bowel Habits, Change in Stool Character, Coffee Ground Emesis, Constipation, Cramping, Diarrhea, Dyspepsia, Dysphagia, Early Satiety, Excessive Flatus, Fecal Incontinence, Heartburn, Hematemesis, Hematochezia, Loose Stools, Melena, Nausea, Odynophagia, Temesmus, Vomiting, Other - Genitourinary Genitourinary: absent: As Per HPI, Change in Urinary Stream, Difficulty Urinating, Dysuria, Flank Pain, Hematuria, Pyuria, Nocturia, Urinary Incontinence, Urinary Frequency, Urinary Hesitance, Urinary Urgency, Voiding Freq/Small Amts, Freq UTI, Hx Renal/Bladder Calculi, Hx /Renal Surgery, Bladder Distension, Other - Musculoskeletal Musculoskeletal: absent: As Per HPI, Abnormal Gait, Arthralgias, Atrophy, Back Pain, Deformity, Joint Swelling, Limited Range of Motion, Loss of Height, Muscle Cramps, Muscle Weakness, Myalgias, Neck Pain, Numbness, Radiating Pain into Limb, Stiffness, Tingling, Other - Integumentary Integumentary: absent: As Per HPI, Acne, Alopecia, Bleeding Lesions, Change in Hair, Change in Nails, Change in Pigmentation, Changing Lesions, Dry Skin, Erythema, Furuncle, Hirsutism, Lesions, New Lesions, Non-Healing Lesions, Photosensitivity, Pruritus, Rash, Skin Pain, Skin Ulcer, Sores, Striae, Swelling , Unusual Bruising, Wounds, Jaundice, Other - Neurological Neurological: absent: As Per HPI, Abnormal Gait, Abnormal Hearing, Abnormal Movements, Abnormal Speech, Behavioral Changes, Burning Sensations, Confusion, Convulsions, Disequilibrium, Dizziness, Numbness, Focal Weakness, Frequent Falls, Headaches, Lack of Coordination, Loss of Vision, Memory Loss, Par esthesias, Radicular Pain, Restless Legs, Sensory Deficit, Syncope, Tingling, Tremor, Vertigo, Weakness, Other Visual Disturbances, Other - Psychiatric Psychiatric: absent: As Per HPI, Abnormal Sleep Pattern, Anhedonia, Anxiety, Auditory Hallucinations, Behavioral Changes, Change in Appetite, Change in Libido, Confusion, Depression, Difficulty Concentrating, Hallucinations, Homicidal Ideation, Hopelessness, Irritability, Memory Loss, Mood Swings, Panic Attacks, Paranoia, Suicidal Ideation, Visual Hallucinations, Tactile Hallucinations, Other - Endocrine Endocrine: absent: As Per HPI, Change in Body Appearance, Change in Libido, Cold Intolorance, Deepening of Voice, Excessive Sweating, Fatigue, Flushing, Heat Intolorance, Increase in Ring/Shoe/Hat Size, Palpitations, Polydipsia, Polyphagia, Polyuria, Other - Hematologic/Lymphatic Hematologic: absent: As Per HPI, Easy Bleeding, Easy Bruising, Lymphadenopathy, Other Past Patient History - Infectious Disease Hx of Infectious Diseases: None - Past Medical History & Family History Past Medical History?: Yes - Past Social History Smoking Status: Former Smoker - CARDIAC Hx Hypertension: Yes - PULMONARY Hx Chronic Obstructive Pulmonary Disease (COPD): Yes - NEUROLOGICAL Hx Migraine: Yes Hx Seizures: Yes (ETOH related) - HEENT Hx HEENT Problems: No - RENAL Hx Chronic Kidney Disease: No - ENDOCRINE/METABOLIC Hx Hyperthyroidism: No Hx Hypothyroidism: No - HEMATOLOGICAL/ONCOLOGICAL Hx Anemia: No Hx Human Immunodeficiency Virus (HIV): No Hx Sickle Cell Disease: No - INTEGUMENTARY Hx Dermatological Problems: No - MUSCULOSKELETAL/RHEUMATOLOGICAL Hx Arthritis: Yes Hx Fractures: No - GASTROINTESTINAL Hx Diverticulitis: No Hx Gastritis: Yes Hx Pancreatitis: Yes - GENITOURINARY/GYNECOLOGICAL Hx Sexually Transmitted Disorders: No - PSYCHIATRIC Hx Anxiety: Yes Hx Bipolar Disorder: Yes Hx Depression: Yes Hx Substance Use: Yes - SURGICAL HISTORY Hx Coronary Artery Bypass Graft: Yes ((quadruple bypass) 2010) Hx Coronary Stent: Yes - ANESTHESIA Hx Anesthesia: Yes Hx Anesthesia Reactions: No Hx Malignant Hyperthermia: No Meds Allergies/Adverse Reactions: Allergies Allergy/AdvReac Type Severity Reaction Status Date / Time No Known Allergies Allergy Verified 03/01/19 13:29 - Medications Medications: Current Medications Albuterol/Ipratropium (Duoneb 3 Mg/0.5 Mg (3 Ml) Ud) 3 ml INH RQ4 PRN PRN Reason: Shortness of Breath Last Admin: 03/02/19 18:32 Dose: 3 ml Cyanocobalamin (Vitamin B12 1000 Mcg/Ml Inj) 1,000 mcg IM DAILY [facility] Last Admin: 03/02/19 09:46 Dose: 1,000 mcg Escitalopram Oxalate (Lexapro) 10 mg PO DAILY [facility] Last Admin: 03/02/19 09:48 Dose: 10 mg Ferric Sodium Gluconate Complex (Ferrlecit) 125 mg IVPB DAILY [facility] Stop: 03/10/19 10:01 Last Admin: 03/02/19 09:45 Dose: 125 mg Folic Acid (Folic Acid) 1 mg PO DAILY [facility] Last Admin: 03/02/19 09:49 Dose: 1 mg Gabapentin (Neurontin) 100 mg PO TID [facility] Last Admin: 03/02/19 17:48 Dose: 100 mg Lorazepam (Ativan) 1 mg IVP Q6H PRN PRN Reason: Anxiety Losartan Potassium (Cozaar) 25 mg PO DAILY [facility] Last Admin: 03/02/19 09:44 Dose: 25 mg Magnesium Oxide (Mag-Ox) 400 mg PO DAILY [facility] Stop: 03/05/19 18:01 Last Admin: 03/02/19 09:48 Dose: 400 mg Multivitamins/Minerals (Therapeutic-M Tab) 1 tab PO DAILY [facility] Last Admin: 03/02/19 09:49 Dose: 1 tab Pantoprazole Sodium (Protonix Inj) 40 mg IVP DAILY [facility] Last Admin: 03/02/19 09:46 Dose: 40 mg Rosuvastatin Calcium (Crestor) 5 mg PO HS [facility] Last Admin: 03/01/19 21:24 Dose: 5 mg Tamsulosin HCl (Flomax) 0.4 mg PO DAILY [facility] Last Admin: 03/02/19 09:49 Dose: 0.4 mg Thiamine HCl (Vitamin B1 Tab) 100 mg PO DAILY [facility] Last Admin: 03/02/19 09:49 Dose: 100 mg Topiramate (Topamax) 50 mg PO BID [facility] Last Admin: 03/02/19 17:48 Dose: 50 mg Physical Exam - Constitutional Appears: Non-toxic - Head Exam Head Exam: NORMAL INSPECTION - Eye Exam Eye Exam: Normal appearance - ENT Exam ENT Exam: Mucous Membranes Moist - Neck Exam Neck exam: Positive for: Full Rom - Respiratory Exam Respiratory Exam: NORMAL BREATHING PATTERN - Cardiovascular Exam Cardiovascular Exam: REGULAR RHYTHM, Systolic Murmur - GI/Abdominal Exam GI & Abdominal Exam: Normal Bowel Sounds - Rectal Exam Rectal Exam: Deferred - Extremities Exam Extremities exam: Negative for: pedal edema - Back Exam Back exam: NORMAL INSPECTION - Neurological Exam Neurological exam: Alert, Oriented x3 - Psychiatric Exam Psychiatric exam: Normal Affect - Skin Skin Exam: Normal Color Results - Vital Signs Recent Vital Signs: Last Vital Signs Temp 98.5 F 03/02/19 18:00 Pulse 78 03/02/19 18:00 Resp 20 03/02/19 18:00 BP 165/82 H 03/02/19 18:00 Pulse Ox 96 03/02/19 18:00 - Labs Result Diagrams: 03/02/19 06:30 03/02/19 06:30 Labs: Laboratory Results - last 24 hr 03/01/19 03/01/19 03/01/19 15:18 22:22 22:22 WBC RBC Hgb Hct MCV MCH MCHC RDW Plt Count MPV Neut % (Auto) Lymph % (Auto) Haines % (Auto) Eos % (Auto) Baso % (Auto) Neut # (Auto) Lymph # (Auto) Haines # (Auto) Eos # (Auto) Baso # (Auto) Sodium Potassium Chloride Carbon Dioxide Anion Gap BUN Creatinine Est GFR ( Amer) Est GFR (Non-Af Amer) Random Glucose Calcium Iron 58 TIBC 446 % Saturation 13 L Troponin I 0.0150 Vitamin B12 Blood Type O POSITIVE Antibody Screen Negative 03/02/19 03/02/19 03/02/19 06:30 06:30 06:30 WBC 6.8 RBC 4.09 L Hgb 8.4 L D Hct 28.2 L MCV 69.0 L D MCH 20.5 L MCHC 29.7 L RDW 26.0 H Plt Count 141 MPV 10.1 Neut % (Auto) 63.2 Lymph % (Auto) 16.1 L Haines % (Auto) 18.1 H Eos % (Auto) 0.9 Baso % (Auto) 1.7 Neut # (Auto) 4.3 Lymph # (Auto) 1.1 Haines # (Auto) 1.2 H Eos # (Auto) 0.1 Baso # (Auto) 0.1 Sodium 139 Potassium 3.4 L Chloride 100 Carbon Dioxide 29 Anion Gap 13 BUN 10 Creatinine 1.0 Est GFR ( Amer) > 60 Est GFR (Non-Af Amer) > 60 Random Glucose 89 Calcium 8.4 L Iron 42 L TIBC % Saturation 10 L Troponin I Vitamin B12 690 Blood Type Antibody Screen - EKG Data EKG Interpreted by: Myself EKG shows normal: Sinus rhythm Assessment & Plan (1) Aortic stenosis Assessment and Plan: appears midl to moderate by exam. will review echo Status: Acute (2) CAD (coronary artery disease) Assessment and Plan: previous PCI. noncompliant and has chronic alcoholism. medicla therapy. hold antiplatelet therapy in the setting of anemia Status: Chronic (3) GI bleed Assessment and Plan: no contraindication to EGD. KEEP MAP>75 Status: Acute
--- NOTE | 2019-03-03 00:24 | CP.PCM.HP ---
Present on Admission - Present on Admission Any Indicators Present on Admission: No Past Patient History - Infectious Disease Hx of Infectious Diseases: None - Past Medical History & Family History Past Medical History?: Yes - Past Social History Smoking Status: Former Smoker - CARDIAC Hx Hypertension: Yes - PULMONARY Hx Chronic Obstructive Pulmonary Disease (COPD): Yes - NEUROLOGICAL Hx Migraine: Yes Hx Seizures: Yes (ETOH related) - HEENT Hx HEENT Problems: No - RENAL Hx Chronic Kidney Disease: No - ENDOCRINE/METABOLIC Hx Hyperthyroidism: No Hx Hypothyroidism: No - HEMATOLOGICAL/ONCOLOGICAL Hx Anemia: No Hx Human Immunodeficiency Virus (HIV): No Hx Sickle Cell Disease: No - INTEGUMENTARY Hx Dermatological Problems: No - MUSCULOSKELETAL/RHEUMATOLOGICAL Hx Arthritis: Yes Hx Fractures: No - GASTROINTESTINAL Hx Diverticulitis: No Hx Gastritis: Yes Hx Pancreatitis: Yes - GENITOURINARY/GYNECOLOGICAL Hx Sexually Transmitted Disorders: No - PSYCHIATRIC Hx Anxiety: Yes Hx Bipolar Disorder: Yes Hx Depression: Yes Hx Substance Use: Yes - SURGICAL HISTORY Hx Coronary Artery Bypass Graft: Yes ((quadruple bypass) 2010) Hx Coronary Stent: Yes - ANESTHESIA Hx Anesthesia: Yes Hx Anesthesia Reactions: No Hx Malignant Hyperthermia: No Meds Allergies/Adverse Reactions: Allergies Allergy/AdvReac Type Severity Reaction Status Date / Time No Known Allergies Allergy Verified 03/01/19 13:29 Results - Vital Signs Recent Vital Signs: Last Vital Signs Temp 98.5 F 03/02/19 18:00 Pulse 75 03/02/19 23:30 Resp 20 03/02/19 18:00 BP 165/82 H 03/02/19 18:00 Pulse Ox 96 03/02/19 18:00 - Labs Result Diagrams: 03/02/19 06:30 03/02/19 06:30 Labs: Laboratory Results - last 24 hr 03/02/19 03/02/19 03/02/19 06:30 06:30 06:30 WBC 6.8 RBC 4.09 L Hgb 8.4 L D Hct 28.2 L MCV 69.0 L D MCH 20.5 L MCHC 29.7 L RDW 26.0 H Plt Count 141 MPV 10.1 Neut % (Auto) 63.2 Lymph % (Auto) 16.1 L Barton % (Auto) 18.1 H Eos % (Auto) 0.9 Baso % (Auto) 1.7 Neut # (Auto) 4.3 Lymph # (Auto) 1.1 Barton # (Auto) 1.2 H Eos # (Auto) 0.1 Baso # (Auto) 0.1 Sodium 139 Potassium 3.4 L Chloride 100 Carbon Dioxide 29 Anion Gap 13 BUN 10 Creatinine 1.0 Est GFR ( Amer) > 60 Est GFR (Non-Af Amer) > 60 Random Glucose 89 Calcium 8.4 L Iron 42 L % Saturation 10 L Vitamin B12 690
--- NOTE | 2019-03-03 03:17 | CON ---
DATE: 03/02/2019 CARDIOLOGY CONSULTATION REASON FOR CONSULTATION: Congestive heart failure, GI bleeding, and EtOH abuse. HISTORY OF PRESENT ILLNESS: The patient is a 63-year-old male who has a history of coronary artery disease, status post coronary artery bypass surgery in [facility] a few years ago. The patient also underwent coronary stenting following that at [facility]. The patient has multiple admissions for either exacerbation of congestive heart failure or chronic obstructive lung disease. He has advanced chronic obstructive lung disease and is on nasal O2 at home. He smokes and drinks. He is noncompliant with his medications. The patient was referred to the emergency room because of shortness of breath and leg swelling as well as chest discomfort. The patient does not recall having rectal bleeding and denies any hematemesis. The patient stated that he has a history of anemia in the past, which required blood transfusion. SOCIAL HISTORY: The patient is a smoker and drinker. MEDICATIONS: Ativan 1 mg intravenously every 6 hours p.r.n., Cozaar 25 mg daily, Crestor 5 mg once a day, Ferrlecit infusion, folic acid 1 mg daily, Lexapro 10 mg once a day, Protonix 40 mg intravenously daily, Neurontin 100 mg t.i.d., thiamine 100 mg once a day, and vitamin B12 of 1 mg IM daily. The patient received K-Dur replacement yesterday. REVIEW OF SYSTEMS: No hematemesis, no hemoptysis, and no hematuria. PHYSICAL EXAMINATION: GENERAL: The patient is a middle-aged male who does not appear to be in acute distress. VITAL SIGNS: Blood pressure 182/78, heart rate 77, temperature 98, and respirations 20. HEENT: Pale conjunctivae. CHEST: Bibasilar rhonchi. HEART: S1 and S2, regular. ABDOMEN: Soft. EXTREMITIES: 1+ pitting edema. LABORATORY DATA: Admitting hemoglobin and hematocrit were 5.7 and 20.9. Today's hemoglobin and hematocrit 8.4 and 28.2 following packed RBC transfusion. Today's SMA-7: Sodium 139, potassium 3.4, chloride 100, CO2 of 29, glucose 89, BUN 10, and creatinine 1. Two sets of troponins are negative. ProBNP is 1030. Magnesium is below normal at 1.5. Iron saturation is 10, below normal and serum iron is 42, below normal. Admitting EKG revealed sinus rhythm at the rate of 77, consider anterolateral ischemic ST-T wave changes. Venous Doppler of the lower extremities, no evidence of deep or superficial thrombosis of bilateral lower extremities. Chest x-ray revealed cardiomegaly, bilateral hilar congestion. Sternotomy wires noted. Recent abdominal ultrasound on 01/14/2019 revealed: 1. Diffuse increased echogenicity in the liver may reflect hepatic steatosis, however parenchymal etiology cannot be entirely precluded. 2. Cholelithiasis. 3. A 0.1 x 2.6 x 2.9 septated cyst in the upper pole of the right kidney. Followup ultrasound in three to six months' interval is recommended. ASSESSMENT: 1. Exacerbation of congestive heart failure. 2. Severe anemia, consider underlying gastrointestinal bleed. 3. Improving hypokalemia. 4. Hypomagnesemia. 5. Chronic obstructive lung disease. 6. Anterolateral ischemic EKG changes. Myocardial infarction so far is ruled out. RECOMMENDATIONS: Continue Cozaar 25 mg once a day, Crestor 5 mg once a day, and albuterol inhaler every 4 hours p.r.n. Continue Ferrlecit infusion. Continue Lexapro 10 mg once a day, magnesium oxide 400 mg once a day, gabapentin 100 mg t.i.d., Protonix 40 mg intravenously daily, thiamine 100 mg once a day, and vitamin B12 of 1 mg IM daily. The patient will be evaluated by see wheeler, Dr. Bo. In the meantime, neither antiplatelet nor anticoagulation are justified at this time. Maxwell Moreno MD
[2019-03-03] MEDS: Multivitamin With Minerals Tab PO SCH (09:51)
[2019-03-03] MEDS: Ferric Sodium Gluconat Complex 62.5 mg/5 ml Vial IVPB SCH (09:51)
[2019-03-03] MEDS: Magnesium Oxide 400 mg Tab UD PO SCH (09:51)
--- NOTE | 2019-03-03 10:04 | HP ---
CHIEF COMPLAINT: Chest pain. HISTORY OF PRESENT ILLNESS: This is a 63-year-old white male well known to me with history of smoking, hypertension, hyperlipidemia, gastroesophageal reflux disease, and the patient is alcoholic. He has history of multiple hospitalizations for alcohol abuse. He drinks and he is a chronic heavy drinker and he has history of alcohol-induced seizures. 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 For the last two days, he has worsening leg swelling, dyspnea at rest, dyspnea on exertion, chest tightness, orthopnea, cough which is chronic, no sputum production. He is noncompliant with his diet, medication and followup. He smokes and he drinks. He has been trying to cut down his alcohol. He sometimes in the morning to stay awake. Last drink was the night before the day of admission. On the day of admission, he was having tremors, dizziness, withdrawing nausea, palpitation. There is no history of hematemesis, melena, hematochezia. There is no history of polyuria, polydipsia, polyphagia. There is no history of hematuria, pyuria. PAST SURGICAL HISTORY: CABG. [facility] [place] MEDICAL HISTORY: Coronary artery disease, hypertension, osteoarthritis, BPH, GERD, alcoholism. SOCIAL HISTORY: Smokes and he drinks. CURRENT MEDICATIONS: He is supposed to be on Topamax, thiamine, Flomax, Pravachol, Protonix, multivitamin, Cozaar, Neurontin, Lexapro, Pletal, Ecotrin, DuoNeb, and Campral. FAMILY HISTORY: Noncontributory. PHYSICAL EXAMINATION: GENERAL: An elderly male in distress. VITAL SIGNS: Blood pressure 165/82, pulse 78, respiratory rate 22, temperature 98.5. SKIN: Pale. No bruises. No purpura. No petechia. HEENT: Atraumatic and normocephalic. Positive pallor. Negative jaundice. Extraocular movements are intact. NECK: Supple. No JVD. No accessory muscle use. No thyromegaly. No carotid bruits. CHEST WALL: Bilateral symmetrical expansion. No masses present. The patient has midline scar. LUNGS: Bilateral basal crepitation. Decreased air entry. ABDOMEN: Soft and nontender. Bowel sounds are positive. RECTAL: Enlarged prostate. EXTREMITIES: +2 pitting edema. CENTRAL NERVOUS SYSTEM: Awake, alert and oriented x3 and just shaking tremulous. ASSESSMENT: 1. Severe anemia, rule out gastrointestinal bleed. Upper versus lower, upper could be due to gastritis versus peptic ulcer disease. Lower could be due to colon cancer versus colon polyps, angiodysplasia. The other etiology of anemia could be alcohol-induced anemia. Could be B12 deficiency. Could be myelodysplasia less likely. 2. Alcoholism with alcohol abuse. 3. Coronary artery disease. 4. Hypertension. PLAN: Admit. Detailed orders are written. Seen and examined. Dennys Vasquez MD
--- NOTE | 2019-03-03 10:43 | CARD ---
APPROVED REPORT Date of service: 03/02/2019 EXAM: Two-dimensional and M-mode echocardiogram with Doppler and color Doppler. INDICATION Abnormal EKG/Arrhythmia Dyspnea Murmur Congestive Heart Failure COPD pneumonia, chest tightness, le edema, alcohol abuse, cad (stents, cabg) RISK FACTORS Hypertension Hyperlipidemia 2D DIMENSIONS IVSd0.7 (0.7-1.1cm)LVDd4.9 (3.9-5.9cm) LVOT Diameter2.0 (1.8-2.4cm)PWd1.0 (0.7-1.1cm) LA Fdxlec07 (18-58mL)LVDs3.2 (2.5-4.0cm) FS (%) 35.6 %LVEF (%)64.9 (>50%) LVEF (Harrison's)53.40 %IVC0.00 cm M-Mode DIMENSIONS RVDd1.98 (2.1-3.2cm)Left Atrium (MM)5.20 (2.5-4.0cm) IVSd1.05 (0.7-1.1cm)Aortic Root3.15 (2.2-3.7cm) LVDd5.32 (4.0-5.6cm)Aortic Cusp Exc.1.17 (1.5-2.0cm) PWd0.96 (0.7-1.1cm)FS (%) 39 % LVDs3.24 (2.0-3.8cm)TAPSE9.96 cm LVEF (%)69 (>50%) Aortic Valve AoV Peak Adtvqsxd966.2cm/sAoV VTI58.1cmAO Peak GR.37mmHg LVOT Peak Eywlmwim445.2cm/sLVOT VTI23.40cmAO Mean GR.16mmHg ENEDINA (VMAX)1.38nn6FXO (VTI)1.26cm2 Mitral Valve MV E Nnvlawua407.4cm/sMV A Cwtalott863.4cm/sE/A ratio1.5 MLIF112.06 cm/s TDI Lateral E' Peak V8.48cm/sMedial E' Peak V3.90cm/sE/Lateral E'22.2 E/Medial E'48.3 Tricuspid Valve TR Peak Bjqsbewo297bm/sTR Peak Gr.25ynCjGIUK01xsWa <Conclusion> Left ventricle: thickness: normal; size: normal; anterior septal wall motion abnormality likely post surgical ;overall ejection fraction: 50%: diastolic filling pressures: elevated Mitral valve: annulus: normal: leaflets: normal: excursion: normal; no trans-mitral gradient: mild incompetence: left atrium: dilated Aortic valve: leaflets:thickendd calcified: excursion: normal; 36/16 trans-aortic gradient: No significant incompetence: aortic root: normal; AV area 1.2cm2 Right sided Structures: Pulmonary valve: normal; no significant incompetence; Tricuspid valve: normal; mild incompetence: Intra-cardiac hemodynamics: pulmonary systolic pressures:50mmHg; central venous pressures: normal No pericardial effusion
[2019-03-03] MEDS ORDERED: Propofol 10 mg/ml Inj (20 ML) ONE (12:30)
[2019-03-03] MEDS ORDERED: Midazolam 2 MG/2 ML VIAL ONE (12:30)
[2019-03-03] MEDS ORDERED: Phytonadione 10 mg/ml Inj (Adult) SC STA (13:07)
[2019-03-03] MEDS ORDERED: Peg-Electrolyte Oral Soln 4L (Golytely) PO ONE (14:00)
--- NOTE | 2019-03-03 14:06 | CARD ---
APPROVED REPORT Date of service: 03/01/2019 EKG Measurement Heart [id number] SD [id number] <Conclusion> Normal sinus rhythm Possible Inferior infarct, age undetermined ST & T wave abnormality, consider anterolateral ischemia Abnormal ECG
[2019-03-03] MEDS ORDERED: Bisacodyl 5mg EC Tab PO ONE (17:00)
[2019-03-03 17:29] LABS: HEMOGLOBIN 8.4 g/dL (12.0-18.0); MEAN CELL VOLUME 69.7 fL (80.0-94.0); MEAN CORPUSCULAR HEMOGLOBIN 20.6 pg (27.0-31.0); MEAN CORPUSCULAR HGB CONC 29.6 g/dL (33.0-37.0); MEAN PLATELET VOLUME 9.4 fL (7.2-11.7); RBC 4.07 Mil/uL (4.40-5.90); RED CELL DISTRIBUTION WIDTH 26.3 % (11.5-14.5); WHITE BLOOD COUNT 5.2 K/uL (4.8-10.8)
[2019-03-03 17:58] LABS: ALB/GLOB RATIO 1.1 (1.0-2.1); ALBUMIN 3.4 g/dL (3.5-5.0); ALT/SGPT 64 U/L (21-72); AST/SGOT 31 U/L (17-59); BLOOD UREA NITROGEN 7 mg/dL (9-20); CALCIUM 8.7 mg/dl (8.6-10.4); GFR NON-AFRICAN AMERICAN > 60
[2019-03-03 18:23] LABS: HEPATITIS B SURFACE AG Negative (NEGATIVE)
[2019-03-03 18:28] LABS: HEPATITIS A IGM NEGATIVE (NEGATIVE); HEPATITIS B CORE AB NEGATIVE (NEGATIVE)
[2019-03-03 18:54] LABS: HEPATITIS C ANTIBODY REACTIVE (NEGATIVE)
--- NOTE | 2019-03-03 19:15 | CP.PCM.PN ---
Subjective - Date & Time of Evaluation Date of Evaluation: 03/03/19 Time of Evaluation: 19:10 - Subjective Subjective: patient has no new complains. preliminary EGD report reveals gastritis Objective - Vital Signs/Intake and Output Vital Signs (last 24 hours): Temp Pulse Resp BP Pulse Ox 98.4 F 81 20 172/88 H 96 03/03/19 16:00 03/03/19 16:00 03/03/19 16:00 03/03/19 16:00 03/03/19 16:00 Intake and Output: 03/03/19 03/04/19 18:59 06:59 Intake Total 440 Output Total 500 Balance -60 - Medications Medications: Current Medications Albuterol/Ipratropium (Duoneb 3 Mg/0.5 Mg (3 Ml) Ud) 3 ml INH RQ4 PRN PRN Reason: Shortness of Breath Last Admin: 03/02/19 18:32 Dose: 3 ml Cyanocobalamin (Vitamin B12 1000 Mcg/Ml Inj) 1,000 mcg IM DAILY [facility] Last Admin: 03/03/19 09:51 Dose: 1,000 mcg Escitalopram Oxalate (Lexapro) 10 mg PO DAILY [facility] Last Admin: 03/03/19 09:51 Dose: 10 mg Ferric Sodium Gluconate Complex (Ferrlecit) 125 mg IVPB DAILY [facility] Stop: 03/10/19 10:01 Last Admin: 03/03/19 09:51 Dose: 125 mg Folic Acid (Folic Acid) 1 mg PO DAILY [facility] Last Admin: 03/03/19 09:51 Dose: Not Given Gabapentin (Neurontin) 100 mg PO TID [facility] Last Admin: 03/03/19 18:58 Dose: 100 mg Lorazepam (Ativan) 1 mg IVP Q6H PRN PRN Reason: Anxiety Losartan Potassium (Cozaar) 25 mg PO DAILY [facility] Last Admin: 03/03/19 09:51 Dose: 25 mg Magnesium Oxide (Mag-Ox) 400 mg PO DAILY [facility] Stop: 03/05/19 18:01 Last Admin: 03/03/19 09:51 Dose: Not Given Metoclopramide HCl (Reglan) 5 mg IVP Q6H [facility] Stop: 03/05/19 10:00 Last Admin: 03/03/19 18:58 Dose: 5 mg Multivitamins/Minerals (Therapeutic-M Tab) 1 tab PO DAILY [facility] Last Admin: 03/03/19 09:51 Dose: Not Given Pantoprazole Sodium (Protonix Inj) 40 mg IVP DAILY [facility] Last Admin: 03/03/19 09:51 Dose: 40 mg Rosuvastatin Calcium (Crestor) 5 mg PO HS [facility] Last Admin: 03/02/19 21:37 Dose: 5 mg Tamsulosin HCl (Flomax) 0.4 mg PO DAILY [facility] Last Admin: 03/03/19 09:51 Dose: Not Given Thiamine HCl (Vitamin B1 Tab) 100 mg PO DAILY [facility] Last Admin: 03/03/19 09:51 Dose: 100 mg Topiramate (Topamax) 50 mg PO BID [facility] Last Admin: 03/03/19 18:57 Dose: 50 mg - Labs Labs: 03/03/19 17:22 03/03/19 17:00 PT 15.1 SECONDS (9.7-12.2) H 03/01/19 14:57 INR 1.4 03/01/19 14:57 APTT 43 SECONDS (21-34) H 03/01/19 14:57 - Constitutional Appears: Non-toxic - Head Exam Head Exam: NORMAL INSPECTION - Eye Exam Eye Exam: Normal appearance - ENT Exam ENT Exam: Mucous Membranes Moist - Neck Exam Neck Exam: Full ROM - Respiratory Exam Respiratory Exam: NORMAL BREATHING PATTERN - Cardiovascular Exam Cardiovascular Exam: REGULAR RHYTHM, Murmur - GI/Abdominal Exam GI & Abdominal Exam: Normal Bowel Sounds - Rectal Exam Rectal Exam: Deferred - Extremities Exam Extremities Exam: absent: Pedal Edema - Back Exam Back Exam: NORMAL INSPECTION - Neurological Exam Neurological Exam: Alert - Psychiatric Exam Psychiatric exam: Normal Affect - Skin Skin Exam: Normal Color Assessment and Plan (1) Aortic stenosis Assessment & Plan: moderate by echo. medical management. no indication for replacement at this time Status: Acute (2) CAD (coronary artery disease) Assessment & Plan: medical therapy Status: Chronic (3) GI bleed Assessment & Plan: GI following Status: Acute
[2019-03-03] MEDS: Albuterol-Ipratrop 3 mg / 0.5 (3 ml) UD INH PRN (20:27)
--- NOTE | 2019-03-03 22:29 | CP.PCM.PN ---
Subjective - Date & Time of Evaluation Date of Evaluation: 03/03/19 Time of Evaluation: 14:00 - Subjective Subjective: No complaints. EGD showed non bleeding gastric ulcers Objective - Vital Signs/Intake and Output Vital Signs (last 24 hours): Temp Pulse Resp BP Pulse Ox 98.4 F 81 20 172/88 H 96 03/03/19 16:00 03/03/19 16:00 03/03/19 16:00 03/03/19 16:00 03/03/19 16:00 Intake and Output: 03/03/19 03/04/19 18:59 06:59 Intake Total 440 Output Total 500 Balance -60 - Medications Medications: Current Medications Albuterol/Ipratropium (Duoneb 3 Mg/0.5 Mg (3 Ml) Ud) 3 ml INH RQ4 PRN PRN Reason: Shortness of Breath Last Admin: 03/03/19 20:27 Dose: 3 ml Cyanocobalamin (Vitamin B12 1000 Mcg/Ml Inj) 1,000 mcg IM DAILY [facility] Last Admin: 03/03/19 09:51 Dose: 1,000 mcg Escitalopram Oxalate (Lexapro) 10 mg PO DAILY [facility] Last Admin: 03/03/19 09:51 Dose: 10 mg Ferric Sodium Gluconate Complex (Ferrlecit) 125 mg IVPB DAILY [facility] Stop: 03/10/19 10:01 Last Admin: 03/03/19 09:51 Dose: 125 mg Folic Acid (Folic Acid) 1 mg PO DAILY [facility] Last Admin: 03/03/19 09:51 Dose: Not Given Gabapentin (Neurontin) 100 mg PO TID [facility] Last Admin: 03/03/19 18:58 Dose: 100 mg Lorazepam (Ativan) 1 mg IVP Q6H PRN PRN Reason: Anxiety Losartan Potassium (Cozaar) 25 mg PO DAILY [facility] Last Admin: 03/03/19 09:51 Dose: 25 mg Magnesium Oxide (Mag-Ox) 400 mg PO DAILY [facility] Stop: 03/05/19 18:01 Last Admin: 03/03/19 09:51 Dose: Not Given Metoclopramide HCl (Reglan) 5 mg IVP Q6H [facility] Stop: 03/05/19 10:00 Last Admin: 03/03/19 18:58 Dose: 5 mg Multivitamins/Minerals (Therapeutic-M Tab) 1 tab PO DAILY [facility] Last Admin: 03/03/19 09:51 Dose: Not Given Pantoprazole Sodium (Protonix Inj) 40 mg IVP DAILY [facility] Last Admin: 03/03/19 09:51 Dose: 40 mg Rosuvastatin Calcium (Crestor) 5 mg PO HS [facility] Last Admin: 03/03/19 21:57 Dose: 5 mg Tamsulosin HCl (Flomax) 0.4 mg PO DAILY [facility] Last Admin: 03/03/19 09:51 Dose: Not Given Thiamine HCl (Vitamin B1 Tab) 100 mg PO DAILY [facility] Last Admin: 03/03/19 09:51 Dose: 100 mg Topiramate (Topamax) 50 mg PO BID [facility] Last Admin: 03/03/19 18:57 Dose: 50 mg - Labs Labs: 03/03/19 17:22 03/03/19 17:00 PT 15.1 SECONDS (9.7-12.2) H 03/01/19 14:57 INR 1.4 03/01/19 14:57 APTT 43 SECONDS (21-34) H 03/01/19 14:57 - Head Exam Head Exam: ATRAUMATIC - Eye Exam Eye Exam: Normal appearance - ENT Exam ENT Exam: Mucous Membranes Dry - Respiratory Exam Respiratory Exam: NORMAL BREATHING PATTERN - Cardiovascular Exam Cardiovascular Exam: +S1, +S2 - GI/Abdominal Exam GI & Abdominal Exam: Normal Bowel Sounds Assessment and Plan (1) Anemia Assessment & Plan: iron deficiency anemia s/p PRBC transfusion on IV iron for colonoscopy Status: Acute (2) Thrombocytopenia Assessment & Plan: mild secondary to bone marrow suppression from alcohol Status: Acute
--- NOTE | 2019-03-04 00:53 | CP.PCM.PN ---
Subjective - Date & Time of Evaluation Date of Evaluation: 03/03/19 Time of Evaluation: 08:16 - Subjective Subjective: dict Objective - Vital Signs/Intake and Output Vital Signs (last 24 hours): Temp Pulse Resp BP Pulse Ox 98.4 F 81 20 172/88 H 96 03/03/19 16:00 03/03/19 16:00 03/03/19 16:00 03/03/19 16:00 03/03/19 16:00 Intake and Output: 03/03/19 03/04/19 18:59 06:59 Intake Total 440 2500 Output Total 500 Balance -60 2500 - Medications Medications: Current Medications Albuterol/Ipratropium (Duoneb 3 Mg/0.5 Mg (3 Ml) Ud) 3 ml INH RQ4 PRN PRN Reason: Shortness of Breath Last Admin: 03/03/19 20:27 Dose: 3 ml Cyanocobalamin (Vitamin B12 1000 Mcg/Ml Inj) 1,000 mcg IM DAILY [facility] Last Admin: 03/03/19 09:51 Dose: 1,000 mcg Escitalopram Oxalate (Lexapro) 10 mg PO DAILY [facility] Last Admin: 03/03/19 09:51 Dose: 10 mg Ferric Sodium Gluconate Complex (Ferrlecit) 125 mg IVPB DAILY [facility] Stop: 03/10/19 10:01 Last Admin: 03/03/19 09:51 Dose: 125 mg Folic Acid (Folic Acid) 1 mg PO DAILY [facility] Last Admin: 03/03/19 09:51 Dose: Not Given Gabapentin (Neurontin) 100 mg PO TID [facility] Last Admin: 03/03/19 18:58 Dose: 100 mg Lorazepam (Ativan) 1 mg IVP Q6H PRN PRN Reason: Anxiety Losartan Potassium (Cozaar) 25 mg PO DAILY [facility] Last Admin: 03/03/19 09:51 Dose: 25 mg Magnesium Oxide (Mag-Ox) 400 mg PO DAILY [facility] Stop: 03/05/19 18:01 Last Admin: 03/03/19 09:51 Dose: Not Given Metoclopramide HCl (Reglan) 5 mg IVP Q6H [facility] Stop: 03/05/19 10:00 Last Admin: 03/04/19 00:13 Dose: 5 mg Multivitamins/Minerals (Therapeutic-M Tab) 1 tab PO DAILY [facility] Last Admin: 03/03/19 09:51 Dose: Not Given Pantoprazole Sodium (Protonix Inj) 40 mg IVP DAILY [facility] Last Admin: 03/03/19 09:51 Dose: 40 mg Rosuvastatin Calcium (Crestor) 5 mg PO HS [facility] Last Admin: 03/03/19 21:57 Dose: 5 mg Tamsulosin HCl (Flomax) 0.4 mg PO DAILY [facility] Last Admin: 03/03/19 09:51 Dose: Not Given Thiamine HCl (Vitamin B1 Tab) 100 mg PO DAILY [facility] Last Admin: 03/03/19 09:51 Dose: 100 mg Topiramate (Topamax) 50 mg PO BID [facility] Last Admin: 03/03/19 18:57 Dose: 50 mg - Labs Labs: 03/03/19 17:22 03/03/19 17:00 PT 15.1 SECONDS (9.7-12.2) H 03/01/19 14:57 INR 1.4 03/01/19 14:57 APTT 43 SECONDS (21-34) H 03/01/19 14:57
--- NOTE | 2019-03-04 03:27 | PN ---
DATE: 03/04/2019 SUBJECTIVE: The patient is still confused, weak, depressed, and he is tremulous and he is shaking. The patient is afebrile. No nausea or vomiting. PHYSICAL EXAMINATION: VITAL SIGNS: Blood pressure 172/88, pulse 83, respiratory rate 20, and temperature 98.4. LUNGS: Bilateral scattered rales and rhonchi. CARDIOVASCULAR: S1 and S2, regular. ABDOMEN: Soft and nontender. Bowel sounds are positive. ASSESSMENT: 1. Alcohol withdrawal, delirium tremens. 2. Anemia, which could be due to alcohol-induced, bone marrow suppression versus gastrointestinal bleed. 3. Hypertension. 4. Depression. PLAN: Continue to monitor the patient. Physical therapy rehab. Monitor the patient. Dennys Vasquez MD
[2019-03-04] MEDS ORDERED: Midazolam 2 MG/2 ML VIAL ONE (10:50)
[2019-03-04] MEDS ORDERED: Propofol 10 mg/ml Inj (20 ML) ONE (10:50)
[2019-03-04] MEDS ORDERED: Lactated Ringer's 1,000 ML IV ONE (10:50)
[2019-03-04 12:09] VITALS: TEMP 98.1; O2SAT 100
[2019-03-04 12:11] VITALS: BP 137/61; PULSE 70; RESP 14
[2019-03-04] MEDS: Ferric Sodium Gluconat Complex 62.5 mg/5 ml Vial IVPB SCH (12:23)
[2019-03-04] MEDS: Multivitamin With Minerals Tab PO SCH (12:23)
[2019-03-04] MEDS: Magnesium Oxide 400 mg Tab UD PO SCH (12:24)
[2019-03-04] MEDS: Albuterol-Ipratrop 3 mg / 0.5 (3 ml) UD INH PRN (12:31)
--- NOTE | 2019-03-04 17:16 | CP.PCM.PN ---
Objective - Vital Signs/Intake and Output Vital Signs (last 24 hours): Temp Pulse Resp BP Pulse Ox 98.1 F 70 14 137/61 100 03/04/19 11:50 03/04/19 11:50 03/04/19 11:50 03/04/19 11:50 03/04/19 11:50 Intake and Output: 03/04/19 03/04/19 06:59 18:59 Intake Total 2500 Balance 2500 - Labs Labs: 03/03/19 17:22 03/03/19 17:00 PT 15.1 SECONDS (9.7-12.2) H 03/01/19 14:57 INR 1.4 03/01/19 14:57 APTT 43 SECONDS (21-34) H 03/01/19 14:57 Assessment and Plan - Assessment and Plan (Free Text) Assessment: Patient admitted with chest pain seen and examined. Alert awake, no acute distress.
--- NOTE | 2019-03-04 22:57 | CP.PCM.DIS ---
Provider - Provider Date of Admission: 03/01/19 15:34 Attending physician: Dennys Vasquez MD Consults: 03/01/19 17:48 Gastroenterology Consult Routine Comment: Consulting Provider: Becca Bo Consulting Physician: Becca Bo Reason for Consult: gi bleed 03/01/19 17:52 Cardiology Consult Routine Comment: notified by [facility] Consulting Provider: Maxwell Moreno Consulting Physician: Maxwell Moreno Reason for Consult: chest pain /sob 03/01/19 18:00 Psychiatry Consult Routine Comment: Consulting Provider: Venktaa Lazo Consulting Physician: Venkata Lazo Reason for Consult: ETOH / NEED ETOX 03/01/19 18:01 Hematology Oncology Consult Routine Comment: Consulting Provider: Froilan Bonilla Consulting Physician: Froilan Bonilla Reason for Consult: anemia 03/02/19 15:52 Physician Consult Routine Comment: Consulting Provider: Zaida Erwin Consulting Physician: Zaida Erwin Reason for Consult: CHF 03/04/19 08:30 Inpatient [facility] Core Measures Referral Routine Comment: Physician Instructions: Reason For Exam: Hx CAD,Fluid overload Time Spent in preparation of Discharge (in minutes): 30 Hospital Course - Lab Results Lab Results: Most Recent Lab Values WBC 5.2 K/uL (4.8-10.8) 03/03/19 17:22 RBC 4.07 Mil/uL (4.40-5.90) L 03/03/19 17:22 Hgb 8.4 g/dL (12.0-18.0) L 03/03/19 17:22 Hct 28.3 % (35.0-51.0) L 03/03/19 17:22 MCV 69.7 fL (80.0-94.0) L 03/03/19 17:22 MCH 20.6 pg (27.0-31.0) L 03/03/19 17:22 MCHC 29.6 g/dL (33.0-37.0) L 03/03/19 17:22 RDW 26.3 % (11.5-14.5) H 03/03/19 17:22 Plt Count 128 K/uL (130-400) L 03/03/19 17:22 MPV 9.4 fL (7.2-11.7) 03/03/19 17:22 Neut % (Auto) 63.2 % (50.0-75.0) 03/02/19 06:30 Lymph % (Auto) 16.1 % (20.0-40.0) L 03/02/19 06:30 Turner % (Auto) 18.1 % (0.0-10.0) H 03/02/19 06:30 Eos % (Auto) 0.9 % (0.0-4.0) 03/02/19 06:30 Baso % (Auto) 1.7 % (0.0-2.0) 03/02/19 06:30 Neut # (Auto) 4.3 K/uL (1.8-7.0) 03/02/19 06:30 Lymph # (Auto) 1.1 K/uL (1.0-4.3) 03/02/19 06:30 Turner # (Auto) 1.2 K/uL (0.0-0.8) H 03/02/19 06:30 Eos # (Auto) 0.1 K/uL (0.0-0.7) 03/02/19 06:30 Baso # (Auto) 0.1 K/uL (0.0-0.2) 03/02/19 06:30 PT 15.1 SECONDS (9.7-12.2) H 03/01/19 14:57 INR 1.4 03/01/19 14:57 APTT 43 SECONDS (21-34) H 03/01/19 14:57 Sodium 137 mmol/L (132-148) 03/03/19 17:00 Potassium 4.3 mmol/L (3.6-5.2) 03/03/19 17:00 Chloride 102 mmol/L (98-107) 03/03/19 17:00 Carbon Dioxide 25 mmol/L (22-30) 03/03/19 17:00 Anion Gap 13 (10-20) 03/03/19 17:00 BUN 7 mg/dL (9-20) L 03/03/19 17:00 Creatinine 0.8 mg/dL (0.8-1.5) 03/03/19 17:00 Est GFR ( Amer) > 60 03/03/19 17:00 Est GFR (Non-Af Amer) > 60 03/03/19 17:00 Random Glucose 280 mg/dL (75-110) H D 03/03/19 17:00 Calcium 8.7 mg/dl (8.6-10.4) 03/03/19 17:00 Phosphorus 2.9 mg/dL (2.5-4.5) 03/03/19 17:00 Magnesium 1.5 mg/dL (1.6-2.3) L 03/03/19 17:00 Iron 42 ug/dL (49-181) L 03/02/19 06:30 TIBC 446 ug/dL (250-450) 03/01/19 22:22 % Saturation 10 (20-55) L 03/02/19 06:30 Total Bilirubin 0.7 mg/dL (0.2-1.3) 03/03/19 17:00 AST 31 U/L (17-59) 03/03/19 17:00 ALT 64 U/L (21-72) 03/03/19 17:00 Alkaline Phosphatase 88 U/L (38-126) 03/03/19 17:00 Total Creatine Kinase 97 U/L (55-170) 03/01/19 14:21 CK-MB (Mass) 5.21 ng/mL (0.0-3.38) H 03/01/19 14:21 Troponin I 0.0150 ng/mL (0.00-0.120) 03/01/19 22:22 NT-Pro-B Natriuret Pep 1030 pg/mL (0-900) H 03/01/19 14:21 Total Protein 6.5 g/dL (6.3-8.3) 03/03/19 17:00 Albumin 3.4 g/dL (3.5-5.0) L 03/03/19 17:00 Globulin 3.1 gm/dL (2.2-3.9) 03/03/19 17:00 Albumin/Globulin Ratio 1.1 (1.0-2.1) 03/03/19 17:00 Alpha Fetoprotein 2.0 ng/mL (0.0-7.5) 03/03/19 17:22 Carcinoembryonic Ag 2.4 ng/mL (0-3.0) 03/03/19 17:00 Vitamin B12 690 pg/mL (239-931) 03/02/19 06:30 Urine Color Yellow (YELLOW) 03/01/19 14:23 Urine Clarity Clear (Clear) 03/01/19 14:23 Urine pH 6.0 (5.0-8.0) 03/01/19 14:23 Ur Specific Mckee 1.005 (1.003-1.030) 03/01/19 14:23 Urine Protein Negative mg/dL (NEGATIVE) 03/01/19 14:23 Urine Glucose (UA) Negative mg/dL (Normal) 03/01/19 14:23 Urine Ketones Negative mg/dL (NEGATIVE) 03/01/19 14:23 Urine Blood Negative (NEGATIVE) 03/01/19 14:23 Urine Nitrate Negative (NEGATIVE) 03/01/19 14:23 Urine Bilirubin Negative (NEGATIVE) 03/01/19 14:23 Urine Urobilinogen 0.2 mg/dL (0.2-1.0) 03/01/19 14:23 Ur Leukocyte Esterase Negative Ellie/uL (Negative) 03/01/19 14:23 Urine WBC (Auto) 1 /hpf (0-5) 03/01/19 14:23 Urine RBC (Auto) < 1 /hpf (0-3) 03/01/19 14:23 Ur Squamous Epith Cells < 1 /hpf (0-5) 03/01/19 14:23 Alcohol, Quantitative 69 mg/dl (0-10) H 03/01/19 14:21 Hepatitis A IgM Ab Negative (NEGATIVE) 03/03/19 17:22 Hep Bs Antigen Negative (NEGATIVE) 03/03/19 17:22 Hep B Core IgM Ab Negative (NEGATIVE) 03/03/19 17:22 Hepatitis C Antibody Reactive (NEGATIVE) 03/03/19 17:22 Blood Type O POSITIVE 03/01/19 15:18 Antibody Screen Negative 03/01/19 15:18 Discharge Exam - Head Exam Head Exam: ATRAUMATIC Discharge Plan - Discharge Medications Prescriptions: Ferrous Sulfate 325 mg PO BID #60 tablet Famotidine [Pepcid] 20 mg PO BID #60 tab - Follow Up Plan Condition: SERIOUS Disposition: HOME/ ROUTINE Instructions: Alcohol Use - When Is Drinking a Problem?, Colonoscopy (DC), Chest Pain (DC), Alcohol Abuse and Alcoholism (DC), Upper GI Endoscopy (DC), Famotidine, Ferrous Sulfate, Normocytic Normochromic Anemia (DC) Additional Instructions: follow up with PMD in 1 week home care/home PT/ home oxygen to continue pepcid/iron pills high fiber diet follow up with GI as advised Referrals: Froilan Bonilla MD [Staff Provider] - Becca Bo [Staff Provider] - Maxwell Moreno MD [Staff Provider] - Venkata Lazo MD [Staff Provider] - Dennys Vasquez MD [Staff Provider] - Zaida Erwin MD [Staff Provider] -
--- NOTE | 2019-03-05 05:30 | DS ---
DISCHARGE DIAGNOSES: 1. Alcohol withdrawal. 2. Delirium tremens. 3. Anemia, due to alcohol. 4. Coronary artery disease. 5. Alcohol abuse. 6. Chronic obstructive pulmonary disease. HISTORY OF PRESENT ILLNESS: This is a 63-year-old white male with history of depression, anxiety, alcoholism with recurrent alcohol related admissions with history of coronary artery disease, status post CABG many years ago, hypertension, who is compliant with diet, medication, and followup. He came in because of weakness, leg swelling, found to have severe anemia. He was transfused. He underwent endoscopy, colonoscopy, and the patient did well. The patient is for discharge. The patient's condition is stable upon discharge. PHYSICAL EXAMINATION: VITAL SIGNS: Blood pressure 137/61, pulse 70, respiratory rate 14, temperature 98.1. LUNGS: Bilaterally clear. No rales, no rhonchi. CVS: S1 and S2, regular. ABDOMEN: Soft. ASSESSMENT: Anemia, due to alcoholism, depression and anxiety. PLAN: Discharge patient. Dennys Vasquez MD
--- NOTE | 2019-03-07 04:46 | CON ---
DATE: 03/02/[address] Sanchez to Dr. Dennys Vasquez. I was called for GI consultation by the admitting MD. The patient is seen and fully examined on 03/02/2019 at the request of the admitting medica staff. The entire chart is reviewed including, but not limited to the most recent lab and radiology study results, current and the previous medication lists, current and the previous medical events. Case discussed at length with the admitting medical team at the time of my GI consultation and short handwritten consultation sheet left in the chart immediately after my GI consultation on 03/02/2019. Case discussed at length with Dr. Vasquez at the time of the consultation. HISTORY OF PRESENT ILLNESS: This is a 63-year-old male with a known history including alcohol abuse, was admitted to the hospital due to lower extremity edematous changes associated with pain, difficulty with walking or ambulating with some stiff tightness with slight shortness of breath and intermittent period of cough. On record, the patient is still drinking on a regular basis associated with period of dizziness and tremors, apparently secondary to alcohol withdrawal recently. After being admitted to the hospital, initial blood workup showed hemoglobin of 5.7, hematocrit 20.9 with potassium 3.3, BUN 8, creatinine of 0.7. His PT was elevated to 15.1, PTT 43, could be drug induced. PAST MEDICAL HISTORY: Including, but not limited to: 1. Alcoholism. 2. Depression with severe anxiety syndrome. 3. COPD. 4. Cardiac arrhythmia, hypertension, coronary artery disease. 5. Poorly controlled diabetes mellitus. 6. Benign prostatic hypertrophy. 7. Hyperlipidemia. 8. Migraine headache. 9. Alcohol-induced pancreatitis. 10. Alcohol-related seizure disorders associated with sleep apnea. 11. Previous history of pneumonia. 12. Status post coronary artery stent insertion as well as status post CABG. 13. The patient had multiple extensive procedure before including alcohol detoxification. FAMILY HISTORY: Unknown. SOCIAL HISTORY: Positive for cigarette smoking and alcohol intake as well as substance abuse. CURRENT MEDICATIONS: Postadmission medication lists reviewed. ALLERGIES TO MEDICATION: UNCLEAR. PHYSICAL EXAMINATION: GENERAL: A 63-year-old male. VITAL SIGNS: Afebrile with pulse of 76, respiratory rate 20 to 24, and blood pressure 168/86. HEENT: Showed pale, dry oral mucous membrane. Nonicteric sclerae. LUNGS: Few scattered crepitation, decreased air entry at bases. HEART: Positive S1 and S2. LYMPH NODES: No lymphadenitis or lymphadenopathy. ABDOMEN: Soft with mild generalized tenderness. No mass or organomegaly, but generalized abdominal mild tenderness. RECTAL: Refused. EXTREMITIES: With lower extremity edematous changes. No clubbing or cyanosis. NEUROLOGIC: No reported new neurological deficits, sensory or motor. No reported new focal deficits. IMPRESSION: 1. Severe symptomatic anemia, to rule out upper versus lower gastrointestinal blood loss, this is likely anemia secondary to chronic disease. 2. To rule out occult gastrointestinal malignancy. 3. Electrolyte imbalance. 4. Multiple medical history as mentioned above. SUGGESTION: 1. Agree with your plan. 2. Sectional abdominal and pelvic CAT scan. 3. Cancer makers including CEA, alpha-fetoprotein, and CA 19-9 as well as PSA. 4. Correct underlying coagulopathy. 5. Proton pump inhibitor IV. 6. Cardiology evaluation prior to any aggressive GI endoscopic procedure. 7. Antiarrhythmic measures. 8. Endoscopic evaluation of upper and lower GI tract when the patient is more stable clinically. 9. Further recommendation to follow. Becca Sanchez MD
== END 2019-03-04 15:00 | disposition home or self-care (01) ==
LOC: C.ER 13:12 → C.9E 15:34 → C.6T 16:42
PROVIDERS: ADMIT Internal Medicine; ATTEND Internal Medicine
DX: K25.9 Gastric ulcer, unspecified as acute or chronic, without hemorrhage or perforation (principal); K44.9 Diaphragmatic hernia without obstruction or gangrene; D50.9 Iron deficiency anemia, unspecified; E78.5 Hyperlipidemia, unspecified; E83.42 Hypomagnesemia; E87.6 Hypokalemia; F17.210 Nicotine dependence, cigarettes, uncomplicated; D12.2 Benign neoplasm of ascending colon
CPT/HCPCS: 36415; 36430; 43239; 45388; 71045; 80048; 80053; 80074; 81001; 82105; 82378; 82607; 83540; 83550; 83735; 83880; 84100; 84484; 85025; 85027; 85610; 85730; 86850; 86900; 86920; 88305; 88342; 93005; 93306; 93970; 94640; 96374; 97110; 97116; 97162; 99285; C9113; G0378; G0480; G8978; G8979; J1940; J2060; J2765; J2916; J2930; J3411; J3420; J3430; J7030; J7120; P9051

== ENCOUNTER 2019-03-06 09:52 | Inpatient (IN) | payer OTHER ==
[2019-03-06] MEDS ORDERED: Albuterol-Ipratrop 3 mg / 0.5 (3 ml) UD INH STA (10:00)
--- NOTE | 2019-03-06 10:24 | RAD ---
Date of service: 03/06/2019 PROCEDURE: CHEST RADIOGRAPH, 1 VIEW HISTORY: SOB COMPARISON: 03/01/2019 FINDINGS: LUNGS: The lungs are well inflated. There is worsening pulmonary venous congestion with redistribution. There is interval development of haziness in both lower lobes. PLEURA: Suspect small effusions. No pneumothorax. CARDIOVASCULAR: Persistent moderate cardiomegaly. There are aortic atherosclerotic calcifications present. Status post CABG. OSSEOUS STRUCTURES: Within normal limits for the patient's age. VISUALIZED UPPER ABDOMEN: Normal. OTHER FINDINGS: None. IMPRESSION: Worsening cardiomegaly with development presumable pulmonary edema in the lower lobes.
[2019-03-06] MEDS ORDERED: Albuterol-Ipratrop 3 mg / 0.5 (3 ml) UD ONE (10:29)
--- NOTE | 2019-03-06 10:30 | C.PDOC ---
History Of Present Illness 63 year old male presents to ED with complaint of chest tightness and epigastric pain since last night. Patient also complains of wheezing. Patient has a PMHx of COPD. He denies vomiting and diarrhea. Time Seen by Provider: 03/06/19 09:58 Chief Complaint (Nursing): Shortness Of Breath History Per: Patient History/Exam Limitations: no limitations Onset/Duration Of Symptoms: Days (1) Current Symptoms Are (Timing): Still Present Quality: "Pain" Associated Symptoms: Chest Pain. denies: Fever, Bloody Cough, Productive Cough Past Medical History Reviewed: Historical Data, Nursing Documentation, Vital Signs Vital Signs: Last Vital Signs Temp 97.9 F 03/06/19 10:00 Pulse 98 H 03/06/19 10:00 Resp 40 H 03/06/19 10:00 BP 219/106 H 03/06/19 10:00 Pulse Ox 90 L 03/06/19 10:00 - Medical History PMH: Anxiety, Arthritis, Asthma, Benign Prostatic Hyperplasia, Bipolar Disorder, Bronchitis, CAD, Cardia Arrhythmia, COPD, Depression, Diabetes, Emphysema, Gastritis, Hepatitis (PATIENT STATED HE HAS HEPATITIS BUT COULD NOT RECALL WHICH ONE), HTN, Hypercholesterolemia, Hyperlipidemia, Migraine, Pancreatitis, Pneumonia, Seizures (ETOH related), Sleep Apnea Denies: Anemia, Diverticulitis, Fractures, HIV, Hyperthyroidism, Hypothyroidism, Pulmonary Embolism, Chronic Kidney Disease, Sickle Cell Disease, Sexually Transmitted Disease Surgical History: CABG ((quadruple bypass) 2010), Coronary Stent - [facility] Procedures ALCOHOL DETOXIFICATION (03/12/15) CORONAR ARTERIOGR-2 CATH (07/24/15) CORONARY ARTERY STENT INSERTION [id number] (07/24/15) DETOXIFICATION SERVICES FOR SUBSTANCE ABUSE TREATMENT (10/23/18) ESOPHAGOGASTRODUODENOSCOPY [EGD] W/CLOSED BIOPSY (05/21/13) EXCISION OF DESCENDING COLON, ENDO, DIAGN (06/01/17) EXCISION OF STOMACH, ENDO, DIAGN (06/01/17) GROUP FUR OPERATOR FOR SUBSTANCE ABUSE TREATMENT, PSYCHOEDUCATION (10/23/18) GROUP FUR OPERATOR FOR SUBSTANCE ABUSE, COGNITIVE BEHAVIORAL (10/23/18) GROUP PSYCHOTHERAPY (10/23/18) INDIV PSYCHOTHERAPY FOR SUBSTANCE ABUSE TREATMENT, SUPPORT (10/23/18) INDIV PSYCHOTHERAPY FOR SUBSTANCE ABUSE, COGNITIV BEHAVIORAL (10/23/18) INDIV PSYCHOTHERAPY FOR SUBSTANCE ABUSE, MOTIVATION ENHANCE (11/29/17) INDIV PSYCHOTHERAPY FOR SUBSTANCE ABUSE, PSYCHOEDUCATION (10/23/18) INDIVID PSYCHOTHERAP NEC (11/04/14) INDIVIDUAL PSYCHOTHERAPY, BEHAVIORAL (02/23/18) INDIVIDUAL PSYCHOTHERAPY, COGNITIVE-BEHAVIORAL (10/23/18) INDIVIDUAL PSYCHOTHERAPY, SUPPORTIVE (10/23/18) INSERTION OF ONE VASCULAR STENT (07/24/15) INTRODUCE OF OTH THERAP SUBST INTO RESP TRACT, VIA OPENING (02/05/18) IRRIGATION OF EAR (05/23/15) LEFT HEART CARDIAC CATH (07/19/15) LT HEART ANGIOCARDIOGRAM (07/19/15) OTHER GROUP THERAPY (11/04/14) PACKED CELL TRANSFUSION (05/21/13) PERCUTANEOUS TRANSLUMINAL CORONARY ANGIOPLASTY [PTCA] (07/24/15) PROCEDURE ON SINGLE VESSEL (07/24/15) PSYCHIAT DRUG THERAP NEC (11/04/14) RT HEART ANGIOCARDIOGRAM (07/22/15) RT HEART CARDIAC CATH (07/22/15) VACCINATION NEC (09/28/14) Family History: States: Unknown Family Hx - Social History Hx Tobacco Use: Yes Hx Alcohol Use: Yes Hx Substance Use: Yes - Immunization History Hx Tetanus Toxoid Vaccination: Yes Hx Influenza Vaccination: No Hx Pneumococcal Vaccination: Yes Review Of Systems Except As Marked, All Systems Reviewed And Found Negative. Cardiovascular: Positive for: Chest Pain (chest tightness) Respiratory: Positive for: Wheezing Gastrointestinal: Positive for: Abdominal Pain (epigastric pain ) Physical Exam - Physical Exam Appears: Non-toxic, Other (mild distress) Skin: Normal Color, Warm, Dry Head: Atraumatic, Normacephalic Neck: Normal ROM, Supple Chest: Symmetrical, No Deformity, No Tenderness Cardiovascular: Rhythm Regular, No Murmur Respiratory: Decreased Breath Sounds (decreased air movement in the lungs), No Accessory Muscle Use, No Rales, No Rhonchi, Wheezing (bilaterally), Other (mild respiratory distress) Gastrointestinal/Abdominal: Soft, Tenderness (diffuse epigastric tenderness ) Extremity: Capillary Refill (<2 seconds) Neurological/Psych: Oriented x3 ED Course And Treatment - Laboratory Results Result Diagrams: 03/06/19 10:21 03/06/19 10:21 Interpretation Of ECG: Normal sinus rhythm at 87bpm, nonspecific ST abnormality, abnormal EKG. O2 Sat by Pulse Oximetry: 90 (in RA) Pulse Ox Interpretation: Normal - Other Rad CXR X-Ray: Interpreted by Me, Viewed By Me Interpretation: IMPRESSION: Worsening cardiomegaly with development presumable pulmonary edema in the lower lobes. - CT Scan/US Abdomen/Pelvis CT Other Rad Studies (CT/US): Interpreted By Me, Read By Radiologist CT/US Interpretation: IMPRESSION: 1. No acute abdominal or pelvic abnormality. 2. Moderate circumferential mural thickening of the urinary bladder wall is nonspecific and could be related to underdistention however cystitis is a consideration. Please correlate with urine analysis. 3. Mild enlargement of the prostate gland. Please correlate with PSA levels. 4. Moderate pleural effusions, larger on the right. Medical Decision Making Medical Decision Making: Impression: 63 year old male with chest tightness and epigastric pain Plan: EKG and CXR ordered for patient Labs ordered with CMP, CBC, and troponin Patient given Duoneb and solu-medrol Disposition Discussed With Dr.: Dennys Vasquez Counseled Patient/Family Regarding: Studies Performed, Diagnosis - Disposition Disposition: HOSPITALIZED Disposition Time: 13:44 Condition: STABLE - Clinical Impression Clinical Impression: COPD exacerbation, Heart failure, Respiratory distress - Scribe Statement The provider has reviewed the documentation as recorded by the Scribe (Luda Larsen) All medical record entries made by the Scribe were at my direction and personally dictated by me. I have reviewed the chart and agree that the record accurately reflects my personal performance of the history, physical exam, medical decision making, and the department course for this patient. I have also personally directed, reviewed, and agree with the discharge instructions and disposition.
[2019-03-06 10:36] LABS: BASO # 0.1 K/uL (0.0-0.2); BASO % 0.8 % (0.0-2.0); EOS % 0.5 % (0.0-4.0); HEMOGLOBIN 9.6 g/dL (12.0-18.0); LYMPH # 0.9 K/uL (1.0-4.3); LYMPH % 8.1 % (20.0-40.0); MEAN CELL VOLUME 73.8 fL (80.0-94.0); MEAN CORPUSCULAR HEMOGLOBIN 21.3 pg (27.0-31.0); MEAN CORPUSCULAR HGB CONC 28.9 g/dL (33.0-37.0); MONO # 0.9 K/uL (0.0-0.8); MONO % 7.8 % (0.0-10.0); NEUT # 9.1 K/uL (1.8-7.0); NEUT % 82.8 % (50.0-75.0); PLATELET COUNT 163 K/uL (130-400); RED CELL DISTRIBUTION WIDTH 27.6 % (11.5-14.5)
[2019-03-06 10:42] LABS: ALB/GLOB RATIO 1.1 (1.0-2.1); ALBUMIN 3.7 g/dL (3.5-5.0); ALT/SGPT 53 U/L (21-72); AST/SGOT 32 U/L (17-59); BLOOD UREA NITROGEN 9 mg/dL (9-20); CALCIUM 9.1 mg/dl (8.6-10.4); GFR NON-AFRICAN AMERICAN > 60
[2019-03-06 11:13] LABS: LYMPHOCYTE 5 % (20-40); MONOCYTE 6 % (0-10); NEUTROPHIL 89 % (50-75); PLATELET ESTIMATE NORMAL (NORMAL); TOTAL CELLS COUNTED 100
[2019-03-06 11:14] LABS: ANISOCYTOSIS MODERATE
[2019-03-06 11:15] LABS: HYPOCHROMIC SLIGHT
[2019-03-06 11:27] LABS: B-TYPE NATRIURETIC PEPTIDE 3040 pg/mL (0-900)
[2019-03-06] MEDS ORDERED: Iodixanol 320 MG/ML 100 ML BOTTLE IV ONE (11:30)
--- NOTE | 2019-03-06 13:24 | CT ---
Date of service: 03/06/2019 PROCEDURE: CT Abdomen and Pelvis with contrast HISTORY: Abdominal pain COMPARISON: 10/23/2018. TECHNIQUE: CT scan of the abdomen and pelvis was performed after administration of intravenous contrast. Oral contrast was not administered. Coronal and sagittal reformatted images were obtained. Contrast dose: 100 mL Visipaque 320 Radiation dose: Total exam DLP = 575.21 mGy-cm. This CT exam was performed using one or more of the following dose reduction techniques: Automated exposure control, adjustment of the mA and/or kV according to patient size, and/or use of iterative reconstruction technique. FINDINGS: LOWER THORAX: Moderate right and small left pleural effusions. Small amount of fluid in the left inferior major fissure. LIVER: Normal in size with homogeneous enhancement. Fatty liver. No gross lesion or ductal dilatation. GALLBLADDER AND BILE DUCTS: Well distended. No calcified gallstones, wall thickening or pericholecystic fluid. PANCREAS: Normal in size with homogeneous enhancement. No gross lesion or ductal dilatation. SPLEEN: Normal in size and appearance. ADRENALS: No discrete nodule. KIDNEYS AND URETERS: Normal in size with homogeneous enhancement. No hydronephrosis. There is redemonstration of a 2.2 x 1.8 cm complicated/septated cyst in the upper pole of the right kidney. There is a punctate nonobstructing stone in the lower pole of the left kidney. There is nonspecific perinephric fat stranding. VASCULATURE: No aortic aneurysm. There are advanced aortic atherosclerotic calcifications and mural plaques present. BOWEL: Evaluation of the bowel is limited in the absence of oral contrast. The small bowel loops are normal in caliber. There is moderate amount of stool in the ascending colon. The left hemicolon is essentially decompressed. APPENDIX: Normal appendix. PERITONEUM: No free fluid. No free air. LYMPH NODES: No enlarged lymph nodes. BLADDER: The urinary bladder is well distended. There is apparent moderate circumferential mural thickening of the bladder wall. REPRODUCTIVE: Mild enlargement of the prostate gland with central coarse calcifications.. BONES: No acute fracture. Within normal limits for the patient's age. OTHER FINDINGS: There are bilateral small fat containing inguinal hernias, larger on the right. There is a small sliding hiatal hernia. IMPRESSION: 1. No acute abdominal or pelvic abnormality. 2. Moderate circumferential mural thickening of the urinary bladder wall is nonspecific and could be related to underdistention however cystitis is a consideration. Please correlate with urine analysis. 3. Mild enlargement of the prostate gland. Please correlate with PSA levels. 4. Moderate pleural effusions, larger on the right.
[2019-03-06 13:42] LABS: LIPASE 158 U/L (23-300)
[2019-03-06] MEDS ORDERED: Morphine 4 MG/ML VIAL IV ONE (13:47)
[2019-03-06] MEDS: Albuterol-Ipratrop 3 mg / 0.5 (3 ml) UD INH SCH ×3 (16:10→19:19)
[2019-03-06] MEDS: Cilostazol 100 mg Tab UD PO SCH (17:41)
[2019-03-06] MEDS: guaiFENesin 100 mg/5 ml Syrup UD PO PRN (17:42)
[2019-03-06] MEDS: MethylPREDNISolone 40 mg Vial IVP SCH (17:42)
[2019-03-07] MEDS: Albuterol-Ipratrop 3 mg / 0.5 (3 ml) UD INH SCH ×7 (00:18→23:46)
[2019-03-07] MEDS: MethylPREDNISolone 40 mg Vial IVP SCH ×2 (06:02→17:29)
[2019-03-07] MEDS: Enoxaparin 30 mg Syringe SC SCH ×2 (09:20→21:54)
[2019-03-07] MEDS: Pantoprazole 40 mg EC Tab PO SCH (09:20)
[2019-03-07] MEDS: Multivitamin With Minerals Tab PO SCH (09:20)
[2019-03-07] MEDS: guaiFENesin 100 mg/5 ml Syrup UD PO PRN (09:20)
[2019-03-07] MEDS: Ferric Sodium Gluconat Complex 62.5 mg/5 ml Vial IVPB SCH (09:45)
[2019-03-07] MEDS: Cilostazol 100 mg Tab UD PO SCH ×2 (09:45→17:31)
--- NOTE | 2019-03-07 11:01 | CARD ---
APPROVED REPORT Date of service: 03/06/2019 EKG Measurement Heart [id number] <Conclusion> Normal sinus rhythm Nonspecific ST abnormality Abnormal ECG
--- NOTE | 2019-03-07 18:19 | CP.PCM.CON ---
History of Present Illness - History of Present Illness History of Present Illness: 63 year old male with a PMH: HTN, HLD, COPD on 3L of home oxygen, CAD, cardia arrhythmia, anxiety, arthirits, asthma, BPH, hyperplasia, bipolar, bronchitis, depression, gastritis, hepatitis, migraine, pancreatitis, seizure (etoh relat ed), and sleep apnea. Patient was admitted for chest tightness and epigastric pain since last 03/05. Patient said he felt SOB that did not resolve. He admits to a productive cough of clear or yellowish sputum, chills, diarrhea, and a 6 lb weight gain in the past month. He denies current CP, fever, nausea, vomiting, and constipation. PMH: HTN, HLD, COPD, CAD, cardia arrhythmia, anxiety, arthirits, asthma, BPH, hyperplasia, bipolar, bronchitis, depression, gastritis, hepatitis, migraine, pancreatitis, seizure (etoh related), and sleep apnea. PSH: CABG 2010 (quadruple bypass), coronary stent Family Hx: patient has a daughter Social: Smoker for 48 year, used to smoke a pack/day, has reduced to 1/2 a pack/day, drink 1 pint of 80 percent proof rum daily, admits to substance abuse, lives with a roommate, and patient is on disability PMD: Dr. Vasquez Furnace Loader: Dr. Collins Moraes ROS: as per HPI Physical Exam: General: no toxic, mild distress, AAOx3 HEENT: atraumatic, normocephalic, Cardio: RRR, no murmurs Pulm: Decreased breath sounds, + wheezes, - rales Extremities: pulses present, no pedal edema Imaging: CT chest/abd/ pelvis on 03/06 shows moderate pleural effusions, larger on right, no pelvic or abdominal abnormality. Enlarged prostate and thicken urinary bladder. CXR 03/06: worsening cardiomegaly presumable pulm edema in lower lobes. Assessment: 63 year old male with multiple co-morbidities who was admitted for epigastric pain and SOB. Epigastric pain has since resolved. Clinical presentation is more indicative of CHF exacerbation cannot r/o underlining pneumonia. Plan: would recommend a cardiology consult for chf exacerbation continue Duoneb, robitussin, and solu-medrol. All further recommendation as per primary team Past Patient History - Infectious Disease Hx of Infectious Diseases: None - Past Medical History & Family History Past Medical History?: Yes - Past Social History Smoking Status: Light Smoker < 10 Cigarettes Daily - CARDIAC Hx Cardia Arrhythmia: Yes Hx Hypercholesterolemia: Yes Hx Hypertension: Yes - PULMONARY Hx Asthma: Yes Hx Bronchitis: Yes Hx Chronic Obstructive Pulmonary Disease (COPD): Yes Hx Emphysema: Yes Hx Pneumonia: Yes Hx Pulmonary Embolism: No Hx Sleep Apnea: Yes - NEUROLOGICAL Hx Migraine: Yes Hx Seizures: Yes (ETOH related) - HEENT Hx HEENT Problems: No - RENAL Hx Chronic Kidney Disease: No - ENDOCRINE/METABOLIC Hx Hyperthyroidism: No Hx Hypothyroidism: No - HEMATOLOGICAL/ONCOLOGICAL Hx Anemia: No Hx Human Immunodeficiency Virus (HIV): No Hx Sickle Cell Disease: No - INTEGUMENTARY Hx Dermatological Problems: No - MUSCULOSKELETAL/RHEUMATOLOGICAL Hx Arthritis: Yes Hx Fractures: No - GASTROINTESTINAL Hx Diverticulitis: No Hx Gastritis: Yes Hx Pancreatitis: Yes - GENITOURINARY/GYNECOLOGICAL Hx Sexually Transmitted Disorders: No - PSYCHIATRIC Hx Anxiety: Yes Hx Bipolar Disorder: Yes Hx Depression: Yes Hx Substance Use: Yes - SURGICAL HISTORY Hx Coronary Artery Bypass Graft: Yes ((quadruple bypass) 2010) Hx Coronary Stent: Yes - ANESTHESIA Hx Anesthesia: Yes Hx Anesthesia Reactions: No Hx Malignant Hyperthermia: No Meds Allergies/Adverse Reactions: Allergies Allergy/AdvReac Type Severity Reaction Status Date / Time No Known Allergies Allergy Verified 03/01/19 13:29 - Medications Medications: Current Medications Albuterol/Ipratropium (Duoneb 3 Mg/0.5 Mg (3 Ml) Ud) 3 ml INH RQ4 [facility] Last Admin: 03/07/19 15:34 Dose: 3 ml Aspirin (Ecotrin) 81 mg PO DAILY [facility] Last Admin: 03/07/19 09:20 Dose: 81 mg Cilostazol (Pletal) 100 mg PO BID [facility] Last Admin: 03/07/19 17:31 Dose: 100 mg Enoxaparin Sodium (Lovenox) 30 mg SC 1000,2200 [facility] Last Admin: 03/07/19 09:20 Dose: 30 mg Escitalopram Oxalate (Lexapro) 10 mg PO DAILY [facility] Last Admin: 03/07/19 09:19 Dose: 10 mg Famotidine (Pepcid) 20 mg PO BID [facility] Last Admin: 03/07/19 17:29 Dose: 20 mg Ferrous Sulfate (Feosol) 325 mg PO BID [facility] Last Admin: 03/07/19 17:29 Dose: 325 mg Folic Acid (Folic Acid) 1 mg PO DAILY [facility] Last Admin: 03/07/19 09:20 Dose: 1 mg Gabapentin (Neurontin) 100 mg PO TID [facility] Last Admin: 03/07/19 17:29 Dose: 100 mg Guaifenesin (Robitussin) 100 mg PO BID PRN PRN Reason: Cough Last Admin: 03/07/19 09:20 Dose: 100 mg Home Med (Acamprosate Calcium [Acamprosate Calcium]) 2 tab PO TID [facility] Ibuprofen (Motrin Oral Susp) 200 mg PO Q4H PRN PRN Reason: Pain, Mild (1-3) Losartan Potassium (Cozaar) 50 mg PO DAILY [facility] Last Admin: 03/07/19 09:20 Dose: 50 mg Methylprednisolone (Solu-Medrol) 40 mg IVP Q12H [facility] Last Admin: 03/07/19 17:29 Dose: 40 mg Multivitamins/Minerals (Therapeutic-M Tab) 1 tab PO DAILY [facility] Last Admin: 03/07/19 09:20 Dose: 1 tab Pantoprazole Sodium (Protonix Ec Tab) 40 mg PO DAILY [facility] Last Admin: 03/07/19 09:20 Dose: 40 mg Rosuvastatin Calcium (Crestor) 5 mg PO HS [facility] Last Admin: 03/06/19 21:09 Dose: 5 mg Tamsulosin HCl (Flomax) 0.4 mg PO DAILY [facility] Last Admin: 03/07/19 09:19 Dose: 0.4 mg Thiamine HCl (Vitamin B1 Tab) 100 mg PO DAILY [facility] Last Admin: 03/07/19 09:19 Dose: 100 mg Topiramate (Topamax) 50 mg PO BID [facility] Last Admin: 03/07/19 17:29 Dose: 50 mg Results - Vital Signs Recent Vital Signs: Last Vital Signs Temp 97.9 F 03/07/19 16:48 Pulse 75 03/07/19 16:48 Resp 20 03/07/19 16:48 BP 129/69 03/07/19 16:48 Pulse Ox 96 03/07/19 16:48 - Labs Result Diagrams: 03/06/19 10:21 03/06/19 10:21
--- NOTE | 2019-03-07 22:36 | CP.PCM.HP ---
Present on Admission - Present on Admission Any Indicators Present on Admission: No Past Patient History - Infectious Disease Hx of Infectious Diseases: None - Past Medical History & Family History Past Medical History?: Yes - Past Social History Smoking Status: Light Smoker < 10 Cigarettes Daily - CARDIAC Hx Cardia Arrhythmia: Yes Hx Hypercholesterolemia: Yes Hx Hypertension: Yes - PULMONARY Hx Asthma: Yes Hx Bronchitis: Yes Hx Chronic Obstructive Pulmonary Disease (COPD): Yes Hx Emphysema: Yes Hx Pneumonia: Yes Hx Pulmonary Embolism: No Hx Sleep Apnea: Yes - NEUROLOGICAL Hx Migraine: Yes Hx Seizures: Yes (ETOH related) - HEENT Hx HEENT Problems: No - RENAL Hx Chronic Kidney Disease: No - ENDOCRINE/METABOLIC Hx Hyperthyroidism: No Hx Hypothyroidism: No - HEMATOLOGICAL/ONCOLOGICAL Hx Anemia: No Hx Human Immunodeficiency Virus (HIV): No Hx Sickle Cell Disease: No - INTEGUMENTARY Hx Dermatological Problems: No - MUSCULOSKELETAL/RHEUMATOLOGICAL Hx Arthritis: Yes Hx Fractures: No - GASTROINTESTINAL Hx Diverticulitis: No Hx Gastritis: Yes Hx Pancreatitis: Yes - GENITOURINARY/GYNECOLOGICAL Hx Sexually Transmitted Disorders: No - PSYCHIATRIC Hx Anxiety: Yes Hx Bipolar Disorder: Yes Hx Depression: Yes Hx Substance Use: Yes - SURGICAL HISTORY Hx Coronary Artery Bypass Graft: Yes ((quadruple bypass) 2010) Hx Coronary Stent: Yes - ANESTHESIA Hx Anesthesia: Yes Hx Anesthesia Reactions: No Hx Malignant Hyperthermia: No Meds Allergies/Adverse Reactions: Allergies Allergy/AdvReac Type Severity Reaction Status Date / Time No Known Allergies Allergy Verified 03/01/19 13:29 Results - Vital Signs Recent Vital Signs: Last Vital Signs Temp 97.9 F 03/07/19 16:48 Pulse 75 03/07/19 16:48 Resp 20 03/07/19 16:48 BP 129/69 03/07/19 16:48 Pulse Ox 96 03/07/19 16:48 - Labs Result Diagrams: 03/06/19 10:21 03/06/19 10:21
[2019-03-08] MEDS: Albuterol-Ipratrop 3 mg / 0.5 (3 ml) UD INH SCH ×3 (04:56→15:28)
--- NOTE | 2019-03-08 06:19 | HP ---
CHIEF COMPLAINT: Cough and shortness of breath. HISTORY OF PRESENT ILLNESS: This is a 63-year-old white male well known to me with history of major depression, anxiety, alcoholism in large quantity with recurrent hospitalization for alcohol. He also has history of coronary artery disease, status post CABG. He is a chronic heavy smoker along with alcoholic who came in because of cough, congestion, shortness of breath. There is white sputum production, wheezing, chills, rigors, and body aches. There is no history of abdominal pain, nausea, vomiting or diarrhea. He denied any history of polyuria, polydipsia, polyphagia. He denies any history of chest pain. He has chest pain only upon coughing, generalized weakness. There is no history of trauma, fall, loss of consciousness. There is no history of seizure like activity. There is no history of tingling, numbness, paresthesias. He is anxious. He is stressed. He is depressed. He is having vague physical symptoms with palpitations, sweating, trembling and he is hopeless and he is helpless, and he is coughing, wheezing and he is short of breath. SOCIAL HISTORY: He smokes. He drinks. He is alcoholic. He has multiple hospitalizations. His CAGE questionnaire is positive. PAST MEDICAL HISTORY: Coronary artery disease, CABG, hypertension, BPH, peripheral vascular disease. CURRENT MEDICATIONS: At home, he is on Topamax, folic acid, losartan, Protonix, thiamine, folic acid, ferrous sulphate, Pepcid, Lexapro, Pletal, aspirin, DuoNeb, and Campral. PHYSICAL EXAMINATION: GENERAL: An elderly male, in distress with cough, wheezing. VITAL SIGNS: Blood pressure 129/59, pulse 75, respiratory rate 20, temperature 97.9. SKIN: No rashes. No bruises. No purpura. No petechiae. HEENT: Atraumatic and normocephalic. Negative pallor. Negative jaundice. Extraocular movements are intact. NECK: Supple. No JVD. No lymph node. No thyromegaly. No carotid bruits. CHEST WALL: Bilateral symmetrical expansion. No tenderness. No deformity. Midline scar is clean, healed. LUNGS: Bilateral inspiratory and expiratory rales and rhonchi. CARDIOVASCULAR SYSTEM: S1 and S2, regular. No heave. No thrill. ABDOMEN: Soft and nontender. Bowel sounds are positive. RECTAL: Enlarged prostate. EXTREMITIES: No clubbing, cyanosis or edema. GENITAL: Normal. CENTRAL NERVOUS SYSTEM: Awake, alert and oriented x3. Cranial nerves II through XII are normal. Power 5/5 x4. Plantars are downgoing. ASSESSMENT: 1. Acute exacerbation of chronic obstructive pulmonary disease. There is unlikely to be pneumonia or bronchitis. 2. Hypertension. 3. Alcoholism with alcohol withdrawal, delirium tremens. 4. Hypertension. PLAN: Admit. Detailed orders are written. The patient has been seen and examined by me. Dennys Vasquez MD
[2019-03-08] MEDS: MethylPREDNISolone 40 mg Vial IVP SCH ×2 (06:34→17:20)
[2019-03-08] MEDS: Cilostazol 100 mg Tab UD PO SCH ×2 (10:10→17:21)
[2019-03-08] MEDS: Ferric Sodium Gluconat Complex 62.5 mg/5 ml Vial IVPB SCH (10:11)
[2019-03-08] MEDS: Multivitamin With Minerals Tab PO SCH (10:11)
[2019-03-08] MEDS: guaiFENesin 100 mg/5 ml Syrup UD PO PRN ×2 (10:11→17:19)
[2019-03-08] MEDS: Enoxaparin 30 mg Syringe SC SCH (10:12)
[2019-03-08] MEDS: Pantoprazole 40 mg EC Tab PO SCH (10:16)
--- NOTE | 2019-03-08 15:22 | CP.PCM.PN ---
Subjective - Date & Time of Evaluation Date of Evaluation: 03/08/19 Time of Evaluation: 11:00 - Subjective Subjective: : Patient seen and examined at bedside. Patient is ambulating. He complains of SOB and cough. He denies current CP, fever, nausea, vomiting, and constipation. O: General: no toxic, mild distress, AAOx3 HEENT: atraumatic, normocephalic, Cardio: RRR, no murmurs Pulm: Decreased breath sounds, patient has crackles, no wheezes or rales Extremities: pulses present, no pedal edema Imaging: CT chest/abd/ pelvis on 03/06 shows moderate pleural effusions, larger on right, no pelvic or abdominal abnormality. Enlarged prostate and thicken urinary bladder. CXR 03/06: worsening cardiomegaly presumable pulm edema in lower lobes. A: 63 year old male with a PMH: HTN, HLD, COPD on 3L of home oxygen, ETOH use disorder, seizure (etoh related), CAD, cardia arrhythmia, anxiety, arthirits, asthma, BPH, hyperplasia, bipolar, bronchitis, depression, gastritis, hepatitis, migraine, pancreatitis, and sleep apnea. Patient was admitted for chest tightness and epigastric pain on 03/05. Pulmonary was consulted for SOB and respiratory distress. Clinical presentation is more indicative of CHF exacerbation cannot r/o underlining pneumonia. Patient is clinically improving. Plan: would recommend a cardiology consult for chf exacerbation continue Duoneb, robitussin, and solu-medrol. Objective - Vital Signs/Intake and Output Vital Signs (last 24 hours): Temp Pulse Resp BP Pulse Ox 98.1 F 81 20 151/62 H 99 03/08/19 08:13 03/08/19 11:48 03/08/19 08:13 03/08/19 10:17 03/08/19 08:13 Intake and Output: 03/08/19 03/08/19 06:59 18:59 Intake Total 400 Balance 400 - Medications Medications: Current Medications Albuterol/Ipratropium (Duoneb 3 Mg/0.5 Mg (3 Ml) Ud) 3 ml INH RQ4 [facility] Last Admin: 03/08/19 09:37 Dose: 3 ml Aspirin (Ecotrin) 81 mg PO DAILY [facility] Last Admin: 03/08/19 10:11 Dose: 81 mg Cilostazol (Pletal) 100 mg PO BID [facility] Last Admin: 03/08/19 10:10 Dose: 100 mg Enoxaparin Sodium (Lovenox) 30 mg SC 1000,2200 [facility] Last Admin: 03/08/19 10:12 Dose: 30 mg Escitalopram Oxalate (Lexapro) 10 mg PO DAILY [facility] Last Admin: 03/08/19 10:10 Dose: 10 mg Famotidine (Pepcid) 20 mg PO BID [facility] Last Admin: 03/08/19 10:10 Dose: 20 mg Ferric Sodium Gluconate Complex (Ferrlecit) 125 mg IVPB DAILY [facility] Stop: 03/15/19 10:01 Last Admin: 03/08/19 10:11 Dose: 125 mg Ferrous Sulfate (Feosol) 325 mg PO BID [facility] Last Admin: 03/08/19 10:10 Dose: 325 mg Folic Acid (Folic Acid) 1 mg PO DAILY [facility] Last Admin: 03/08/19 10:55 Dose: 1 mg Gabapentin (Neurontin) 100 mg PO TID [facility] Last Admin: 03/08/19 13:09 Dose: 100 mg Guaifenesin (Robitussin) 100 mg PO BID PRN PRN Reason: Cough Last Admin: 03/08/19 10:11 Dose: 100 mg Home Med (Acamprosate Calcium [Acamprosate Calcium]) 2 tab PO TID [facility] Ibuprofen (Motrin Oral Susp) 200 mg PO Q4H PRN PRN Reason: Pain, Mild (1-3) Losartan Potassium (Cozaar) 50 mg PO DAILY [facility] Last Admin: 03/08/19 10:10 Dose: 50 mg Methylprednisolone (Solu-Medrol) 40 mg IVP Q12H [facility] Last Admin: 03/08/19 06:34 Dose: 40 mg Multivitamins/Minerals (Therapeutic-M Tab) 1 tab PO DAILY [facility] Last Admin: 03/08/19 10:11 Dose: 1 tab Pantoprazole Sodium (Protonix Ec Tab) 40 mg PO DAILY [facility] Last Admin: 03/08/19 10:16 Dose: 40 mg Rosuvastatin Calcium (Crestor) 5 mg PO HS [facility] Last Admin: 03/07/19 21:54 Dose: 5 mg Tamsulosin HCl (Flomax) 0.4 mg PO DAILY [facility] Last Admin: 03/08/19 10:11 Dose: 0.4 mg Thiamine HCl (Vitamin B1 Tab) 100 mg PO DAILY [facility] Last Admin: 03/08/19 10:11 Dose: 100 mg Topiramate (Topamax) 50 mg PO BID [facility] Last Admin: 03/08/19 10:10 Dose: 50 mg - Labs Labs: 03/06/19 10:21 03/06/19 10:21
--- NOTE | 2019-03-08 17:49 | PCM.RRT ---
<Keila Mcdonnell - Last Filed: 03/08/19 19:23> DEHAIRER Nurses Assessment - Situation Date: 03/08/19 Time DEHAIRER was called: 17:38 DEHAIRER Responder Arrival Time:: 17:39 DEHAIRER Location:: Med/Surg Room Number: 553B DEHAIRER Reason for Call: Chest Pain, Tachycardia DEHAIRER Called By: RN - IV IV Inserted during DEHAIRER?: No - Respiratory DEHAIRER Delivery Method: Nasal Cannula @L/min Oxygen Flow Rate: 3 Received Nebulizer Treatments: No Was the Patient Ventilated with Bag/Mask 100% O2?: No Secretions Suctioned?: No Was the Patient Intubated?: No Was the Patient Placed on a Ventilator?: No - Medication Medications Administered During DEHAIRER: ASA 81 mg x3, nitroglycerin SL x2, Lasix 20 mg IVP - Diagnostic Test Ordered EKG: Yes Chest X-Ray: Yes CT Scan: No - Stat Labs Ordered DEHAIRER Stat Labs Ordered: CBC, BMP, TROPONIN CPR started during DEHAIRER?: No - Vital Signs Vital Signs: HR 163 BP 143/76 spO2 98% RR 25 - Malinda Coma Scale Coma Scale Eye Opening: Spontaneous Coma Scale Motor: Obeys Commands Movement Coma Scale Verbal: Oriented Coma Scale Total: 15 - Time DEHAIRER Ended Time DEHAIRER Ended: 18:20 - Vital Signs at end of DEHAIRER Vital Signs at end of DEHAIRER: BP 120/70 HR 114 spO2 97% on 3L RR 20 - Recommendations 5) DEHAIRER Level of Care Recommendations: Transfer to ICU Notifications: Attending Physician, Consultations I.Reason for DEHAIRER - A) Acute Change in Patient: (Select all that apply): Acute change in heart rate less than 50 or greater than 120 Subjective: DEHAIRER called for chest tightness and tachycardia. Patient is already on telemetry. Monitor appears to show Afib/flutter with HR in 160s. Patient states that he feels 10/10 chest pain. He says that he has baseline chest pain, but this is significantly worse. He was given full dose ASA (received 81 earlier and given 81x3 now) and sublingual nitroglycerin x2. This only improved chest pain to 8/10. EKG done showed Afib RVR with new T wave inversions. Cardiology on consult, Dr. Condon, was called and recs given. ICU consulted and accepted patient for management, including heparin, Cardizem, and nitroglycerin drips. Patient transported to ICU without complication. - Neurological Status (Select all that apply): Alert, Responsive, Oriented, Verbal, Follows Commands - Respiratory Oxygen Delivery Method: Nasal Cannula @L/min (3) Oxygen Flow Rate: 3 - Constitutional Appears: In Acute Distress - Head Head Exam: ATRAUMATIC, NORMAL INSPECTION - Eyes Eye Exam: EOMI, Normal appearance - Respiratory Exam Respiratory Exam: Decreased Breath Sounds. absent: Wheezes - Cardiovascular Exam Cardiovascular Exam: Tachycardia - GI/Abdominal Exam GI & Abdominal Exam: Soft. absent: Tenderness - Neurological Exam Neurological Exam: Alert, Awake, Oriented x3 - Extremities Exam Extremities Exam: Normal Inspection Plan - Assessment of Findings&Treatment Plan Patient is a 63 yo male admitted for chest pain. Patient has a significant cardiac history including CABG and arrhythmia. Patient also has COPD on 3 L at home. Plan: - Stat EKG - Stat CXR - Stat BETZAIDA, CBC, CMP, Mg, Ph, TSH, free T4, D-dimer, BNP - Trend BETZAIDA - Stat ASA 243 mg (patient received 81 mg today) - Stat nitroglycerin SL x2 - Stat Lasix 20 mg IV--> Lasix 20 mg IV Q12H - Heparin bolus 3000 units--> drip - Nitroglycerin drip - Cardizem 10 mg IVP--> drip - Called cardiology, Dr. Condon - ICU consult (Connor)- accepted <Esme Moore V - Last Filed: 03/09/19 23:26> DEHAIRER Nurses Assessment - Vital Signs Vital Signs: Rapid Response Vital Sign Blood Pressure 143/76 Pulse Rate 115 Respiratory Rate 28 Temperature 97.6 F Oxygen Saturation 96 - Vital Signs at end of DEHAIRER Vital Signs at end of DEHAIRER: Rapid Response End Vital Sign Blood Pressure 120/62 Pulse Rate 106 Respiratory Rate 22 O2 Sat by Pulse Oximetry 98 Attending/Attestation - Attestation I have personally seen and examined this patient.: Yes I have fully participated in the care of the patient.: Yes I have reviewed all pertinent clinical information, including history, physical exam and plan: Yes Notes (Text): 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 patient awake, alert, oriented X3. reports chest pain 8/10. Patient's ekg changed from admission, irregular R to R with t wave inversions v1,v2,v3,v4. Blood work drawn at time of admission. Patient required 2 nitro sublingual; chest pain was not abated; recommended for 3rd but refused. Patient w hx of cabg 2000, copd, chf, prior gi bleed 2 years ago, hx of alcohol use. Resident spoke with chief lending officer, dr condon aware of events, heparin drip and cardizem drip; and EP for arrhythmia Discussed ICU, given persistent chest pain, nitrodrip. Patient on exertion such as urinating heart rate 160s when he is at rest 110s. Per nurse no rate control agent on board. chest xray improved in pulmonary venous congestion compared to 03/06 chest xray cardiac enzymes next at 11pm. Patient accepted to the icu critical care time >30 min
[2019-03-08 18:10] LABS: MEAN PLATELET VOLUME 9.1 fL (7.2-11.7); PLATELET COUNT 179 K/uL (130-400)
[2019-03-08 18:16] LABS: MEAN CELL VOLUME 75.2 fL (80.0-94.0); MEAN CORPUSCULAR HEMOGLOBIN 22.2 pg (27.0-31.0); MEAN CORPUSCULAR HGB CONC 29.5 g/dL (33.0-37.0); RBC 3.87 Mil/uL (4.40-5.90); RED CELL DISTRIBUTION WIDTH 32.4 % (11.5-14.5); WHITE BLOOD COUNT 10.1 K/uL (4.8-10.8)
[2019-03-08] MEDS ORDERED: Heparin25000 units/250ml 1/2NS 25,000 UNITS/250 ML BAG IV PRN (18:20)
--- NOTE | 2019-03-08 18:20 | RAD ---
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 FINDINGS: LUNGS: Improving but persistent pulmonary venous congestion. PLEURA: No significant pleural effusion identified. No definite pneumothorax . CARDIOVASCULAR: Median sternotomy wires with evidence of CABG. Cardiomegaly. Atherosclerotic calcifications of the aorta. OSSEOUS STRUCTURES: Degenerative changes. VISUALIZED UPPER ABDOMEN: Unremarkable. OTHER FINDINGS: None. IMPRESSION: Improving but persistent pulmonary venous congestion. Cardiomegaly. Median sternotomy wires with evidence of CABG. Atherosclerotic calcifications of the aorta.
[2019-03-08 18:21] LABS: HEMOGLOBIN 8.7 g/dL (12.0-18.0)
[2019-03-08 18:32] LABS: INR 1.2; PROTHROMBIN TIME 12.7 SECONDS (9.7-12.2)
[2019-03-08 18:32] LABS: ALB/GLOB RATIO 1.2 (1.0-2.1); ALBUMIN 3.3 g/dL (3.5-5.0); ALT/SGPT 36 U/L (21-72); AST/SGOT 19 U/L (17-59); BLOOD UREA NITROGEN 14 mg/dL (9-20); CALCIUM 8.6 mg/dl (8.6-10.4); GFR NON-AFRICAN AMERICAN > 60
[2019-03-08 18:37] LABS: B-TYPE NATRIURETIC PEPTIDE 2180 pg/mL (0-900); CK-MB 1.93 ng/mL (0.0-3.38)
--- NOTE | 2019-03-08 18:37 | CP.PCM.CON ---
History of Present Illness - History of Present Illness History of Present Illness: PGY-1 Critical Care Consult Note for Dr. Ryan Patient is a 63 year old male with PMHx CAD s/p CABG/quadruple bypass, BOPD, DM, hepatitis, HTN, HLD, seizures, CHENCHO, hep C and A fib who presented to ED 03/06 with chief complaint of chest pain/epigastric pain and shortness of breath. Patient has history COPD on 3L home O2. ICU eval for patient complaining of chest pain and rapid heart rate noted on telemetry in 160s. Patient also c/o shortness of breath but noted to be satting in high 90s on 3L NC and receiving solumedrol already for COPD exacerbation. Patient still complaining of chest tightness, though states similar to pain he was feeling when he came in. Patient state shortness of breath improving. Does state having some nausea, but without vomiting. He does state he has chest pain at home that is worse with exertion, even has had pain walking short distances recently. Patient admits to drinking 1 pint alcohol/day with last drink on thursday, and smokes 1 ppd but is intent on quitting due to recent Review of Systems - Constitutional Constitutional: absent: Chills, Fever - EENT Eyes: absent: Blurred Vision, Change in Vision - Cardiovascular Cardiovascular: Chest Pain, Chest Pain with Activity, Dyspnea. absent: Diaphoresis, Edema, Lightheadedness, Radiating Pain, Syncope - Respiratory Respiratory: absent: Cough - Gastrointestinal Gastrointestinal: absent: Abdominal Pain, Constipation, Nausea, Vomiting - Musculoskeletal Musculoskeletal: absent: Numbness, Stiffness - Neurological Neurological: absent: Dizziness, Paresthesias - Psychiatric Psychiatric: absent: Anxiety, Depression - Hematologic/Lymphatic Hematologic: absent: Easy Bleeding, Easy Bruising Past Patient History - Infectious Disease Hx of Infectious Diseases: None - Past Medical History & Family History Past Medical History?: Yes - Past Social History Smoking Status: Heavy Smoker > 10 Cigarettes Daily - CARDIAC Hx Cardia Arrhythmia: Yes Hx Hypercholesterolemia: Yes Hx Hypertension: Yes - PULMONARY Hx Asthma: Yes Hx Bronchitis: Yes Hx Chronic Obstructive Pulmonary Disease (COPD): Yes Hx Emphysema: Yes Hx Pneumonia: Yes Hx Pulmonary Embolism: No Hx Sleep Apnea: Yes - NEUROLOGICAL Hx Migraine: Yes Hx Seizures: Yes (ETOH related) - HEENT Hx HEENT Problems: No - RENAL Hx Chronic Kidney Disease: No - ENDOCRINE/METABOLIC Hx Hyperthyroidism: No Hx Hypothyroidism: No - HEMATOLOGICAL/ONCOLOGICAL Hx Anemia: No Hx Human Immunodeficiency Virus (HIV): No Hx Sickle Cell Disease: No - INTEGUMENTARY Hx Dermatological Problems: No - MUSCULOSKELETAL/RHEUMATOLOGICAL Hx Arthritis: Yes Hx Falls: Yes Hx Fractures: No - GASTROINTESTINAL Hx Diverticulitis: No Hx Gastritis: Yes Hx Pancreatitis: Yes - GENITOURINARY/GYNECOLOGICAL Hx Sexually Transmitted Disorders: No - PSYCHIATRIC Hx Anxiety: Yes Hx Bipolar Disorder: Yes Hx Depression: Yes Hx Substance Use: Yes - SURGICAL HISTORY Hx Coronary Artery Bypass Graft: Yes ((quadruple bypass) 2010) Hx Coronary Stent: Yes - ANESTHESIA Hx Anesthesia: Yes Hx Anesthesia Reactions: No Hx Malignant Hyperthermia: No Meds Allergies/Adverse Reactions: Allergies Allergy/AdvReac Type Severity Reaction Status Date / Time No Known Allergies Allergy Verified 03/01/19 13:29 - Medications Medications: Current Medications Albuterol/Ipratropium (Duoneb 3 Mg/0.5 Mg (3 Ml) Ud) 3 ml INH RQ4 [facility] Last Admin: 03/08/19 15:28 Dose: 3 ml Aspirin (Ecotrin) 81 mg PO DAILY [facility] Last Admin: 03/08/19 10:11 Dose: 81 mg Cilostazol (Pletal) 100 mg PO BID [facility] Last Admin: 03/08/19 17:21 Dose: 100 mg Enoxaparin Sodium (Lovenox) 30 mg SC 1000,2200 [facility] Last Admin: 03/08/19 10:12 Dose: 30 mg Escitalopram Oxalate (Lexapro) 10 mg PO DAILY [facility] Last Admin: 03/08/19 10:10 Dose: 10 mg Famotidine (Pepcid) 20 mg PO BID [facility] Last Admin: 03/08/19 17:19 Dose: 20 mg Ferric Sodium Gluconate Complex (Ferrlecit) 125 mg IVPB DAILY [facility] Stop: 03/15/19 10:01 Last Admin: 03/08/19 10:11 Dose: 125 mg Ferrous Sulfate (Feosol) 325 mg PO BID [facility] Last Admin: 03/08/19 17:19 Dose: 325 mg Folic Acid (Folic Acid) 1 mg PO DAILY [facility] Last Admin: 03/08/19 10:55 Dose: 1 mg Gabapentin (Neurontin) 100 mg PO TID [facility] Last Admin: 03/08/19 17:20 Dose: 100 mg Guaifenesin (Robitussin) 100 mg PO BID PRN PRN Reason: Cough Last Admin: 03/08/19 17:19 Dose: 100 mg Home Med (Acamprosate Calcium [Acamprosate Calcium]) 2 tab PO TID [facility] Heparin Sodium/Sodium Chloride (Heparin 50928 Units/250ml 1/2 Normal Saline) 25,000 units in 250 mls @ 9.58 mls/hr IV .Q24H PRN; Protocol PRN Reason: PROTOCOL Nitroglycerin/Dextrose (Nitroglycerin 50 Mg/250 Ml D5w) 50 mg in 250 mls @ 1.5 mls/hr IV .Q24H [facility]; Protocol Ibuprofen (Motrin Oral Susp) 200 mg PO Q4H PRN PRN Reason: Pain, Mild (1-3) Losartan Potassium (Cozaar) 50 mg PO DAILY [facility] Last Admin: 03/08/19 10:10 Dose: 50 mg Methylprednisolone (Solu-Medrol) 40 mg IVP Q12H [facility] Last Admin: 03/08/19 17:20 Dose: 40 mg Multivitamins/Minerals (Therapeutic-M Tab) 1 tab PO DAILY [facility] Last Admin: 03/08/19 10:11 Dose: 1 tab Nitroglycerin (Nitrostat Sl Tab) 0.4 mg SL Q5M PRN PRN Reason: Other Pantoprazole Sodium (Protonix Ec Tab) 40 mg PO DAILY [facility] Last Admin: 03/08/19 10:16 Dose: 40 mg Rosuvastatin Calcium (Crestor) 5 mg PO HS [facility] Last Admin: 03/07/19 21:54 Dose: 5 mg Tamsulosin HCl (Flomax) 0.4 mg PO DAILY [facility] Last Admin: 03/08/19 10:11 Dose: 0.4 mg Thiamine HCl (Vitamin B1 Tab) 100 mg PO DAILY [facility] Last Admin: 03/08/19 10:11 Dose: 100 mg Topiramate (Topamax) 50 mg PO BID [facility] Last Admin: 03/08/19 17:20 Dose: 50 mg Physical Exam - Constitutional Appears: No Acute Distress - Head Exam Head Exam: ATRAUMATIC, NORMOCEPHALIC - Eye Exam Eye Exam: EOMI - ENT Exam ENT Exam: Mucous Membranes Moist - Respiratory Exam Respiratory Exam: Decreased Breath Sounds. absent: Rales, Rhonchi, Wheezes - Cardiovascular Exam Cardiovascular Exam: REGULAR RHYTHM, +S1, +S2 - Extremities Exam Extremities exam: Positive for: normal inspection. Negative for: pedal edema, tenderness - Neurological Exam Neurological exam: Alert, CN II-XII Intact, Oriented x3 - Psychiatric Exam Psychiatric exam: Normal Affect, Normal Mood - Skin Skin Exam: Dry, Intact Results - Vital Signs Recent Vital Signs: Last Vital Signs Temp 97.6 F 03/08/19 17:38 Pulse 115 H 03/08/19 17:38 Resp 28 H 03/08/19 17:38 BP 128/62 03/08/19 18:00 Pulse Ox 96 03/08/19 17:38 - Labs Result Diagrams: 03/08/19 18:05 03/08/19 18:05 Labs: Laboratory Results - last 24 hr 03/08/19 18:05 WBC 10.1 RBC 3.87 L Hgb 8.7 L Hct 29.1 L MCV 75.2 L MCH 22.2 L MCHC 29.5 L RDW 32.4 H Plt Count 179 MPV 9.1 Assessment & Plan - Assessment and Plan (Free Text) Assessment: 63 y/o male with hx CAD s/p CABG, COPD, CHF to ICU following INSTRUCTIONAL MATERIAL DIRECTOR called for rapid a fib, started on cardizem drip. Cardio Chest Pain, A Fib RVR -INSTRUCTIONAL MATERIAL DIRECTOR called for rapid A fib/chest pain --Initial trops negative --A fib RVR on monitor --Cardizem IV and nitro SL given x2 on floor with HR coming down to 110s -Cardiology Consulted - Dr. Moraes - f/u -EP consulted, Dr. Middleton - f/u -ICU cardiac monitoring -Cardizem ggt -Nitro ggt -Eliquis 30 mg BID CHF -Elevated pro-BNP -Monitor Is and Os Pulm COPD -Continue home meds -Duonbeds Q4 [facility] Heme Anemia -Home Feosol -Monitor H and H PPx -Eliquis 30 mg BID Assessment and plan d/w Dr. Connor Espinal, PGY-1
[2019-03-08] MEDS: Nitroglycerin 50mg in D5W 50 MG/250 ML BOTTLE IV SCH (19:06)
[2019-03-08 20:30] LABS: NEUT % 80.8 % (50.0-75.0)
[2019-03-08 20:31] LABS: BASO % 0.1 % (0.0-2.0); LYMPH # 0.7 K/uL (1.0-4.3); LYMPH % 6.8 % (20.0-40.0); MONO # 1.3 K/uL (0.0-0.8); MONO % 12.3 % (0.0-10.0); NEUT # 8.3 K/uL (1.8-7.0)
[2019-03-08 20:33] LABS: LYMPHOCYTE 6 % (20-40); MONOCYTE 13 % (0-10); NEUTROPHIL 81 % (50-75); PLATELET ESTIMATE NORMAL (NORMAL); TOTAL CELLS COUNTED 100
[2019-03-08 20:41] LABS: ANISOCYTOSIS SLIGHT
[2019-03-08 20:42] LABS: HYPOCHROMIC MODERATE; MICROCYTOSIS SLIGHT; POIKILOCYTOSIS SLIGHT
--- NOTE | 2019-03-08 21:37 | CP.PCM.PN ---
Subjective - Date & Time of Evaluation Date of Evaluation: 03/08/19 Time of Evaluation: 10:00 - Subjective Subjective: dict Objective - Vital Signs/Intake and Output Vital Signs (last 24 hours): Temp Pulse Resp BP Pulse Ox 97.6 F 115 H 28 H 131/71 96 03/08/19 17:38 03/08/19 17:38 03/08/19 17:38 03/08/19 19:06 03/08/19 17:38 Intake and Output: 03/08/19 03/09/19 18:59 06:59 Intake Total 50 Balance 50 - Medications Medications: Current Medications Albuterol/Ipratropium (Duoneb 3 Mg/0.5 Mg (3 Ml) Ud) 3 ml INH RQ4 [facility] Last Admin: 03/08/19 15:28 Dose: 3 ml Aspirin (Ecotrin) 81 mg PO DAILY [facility] Last Admin: 03/08/19 10:11 Dose: 81 mg Cilostazol (Pletal) 100 mg PO BID [facility] Last Admin: 03/08/19 17:21 Dose: 100 mg Escitalopram Oxalate (Lexapro) 10 mg PO DAILY [facility] Last Admin: 03/08/19 10:10 Dose: 10 mg Ferric Sodium Gluconate Complex (Ferrlecit) 125 mg IVPB DAILY [facility] Stop: 03/15/19 10:01 Last Admin: 03/08/19 10:11 Dose: 125 mg Folic Acid (Folic Acid) 1 mg PO DAILY [facility] Last Admin: 03/08/19 10:55 Dose: 1 mg Gabapentin (Neurontin) 100 mg PO TID [facility] Last Admin: 03/08/19 17:20 Dose: 100 mg Guaifenesin (Robitussin) 600 mg PO BID [facility] Home Med (Acamprosate Calcium [Acamprosate Calcium]) 2 tab PO TID [facility] Heparin Sodium/Sodium Chloride (Heparin 06937 Units/250ml 1/2 Normal Saline) 25,000 units in 250 mls @ 9.58 mls/hr IV .Q24H PRN; Protocol PRN Reason: PROTOCOL Last Admin: 03/08/19 20:16 Dose: 12 units/kg/hr, 9.58 mls/hr Nitroglycerin/Dextrose (Nitroglycerin 50 Mg/250 Ml D5w) 50 mg in 250 mls @ 1.5 mls/hr IV .Q24H [facility]; Protocol Last Titration: 03/08/19 20:00 Dose: 10 mcg/min, 3 mls/hr Diltiazem HCl 125 mg/ Sodium (Chloride) 125 mls @ 10 mls/hr IV .[id number] [facility]; Protocol Last Admin: 03/08/19 21:05 Dose: Not Given Losartan Potassium (Cozaar) 50 mg PO DAILY [facility] Last Admin: 03/08/19 10:10 Dose: 50 mg Methylprednisolone (Solu-Medrol) 40 mg IVP Q12H [facility] Last Admin: 03/08/19 17:20 Dose: 40 mg Multivitamins/Minerals (Therapeutic-M Tab) 1 tab PO DAILY [facility] Last Admin: 03/08/19 10:11 Dose: 1 tab Nitroglycerin (Nitrostat Sl Tab) 0.4 mg SL Q5M PRN PRN Reason: Other Pantoprazole Sodium (Protonix Ec Tab) 40 mg PO DAILY [facility] Last Admin: 03/08/19 10:16 Dose: 40 mg Rosuvastatin Calcium (Crestor) 5 mg PO HS [facility] Last Admin: 03/07/19 21:54 Dose: 5 mg Tamsulosin HCl (Flomax) 0.4 mg PO DAILY [facility] Last Admin: 03/08/19 10:11 Dose: 0.4 mg Thiamine HCl (Vitamin B1 Tab) 100 mg PO DAILY [facility] Last Admin: 03/08/19 10:11 Dose: 100 mg Topiramate (Topamax) 50 mg PO BID [facility] Last Admin: 03/08/19 17:20 Dose: 50 mg - Labs Labs: 03/08/19 18:05 03/08/19 18:05 PT 12.7 SECONDS (9.7-12.2) H 03/08/19 18:16 INR 1.2 03/08/19 18:16 APTT 43.0 SECONDS (21-34) H 03/08/19 18:16
[2019-03-09 00:08] LABS: CK-MB 1.83 ng/mL (0.0-3.38); TROPONIN I 0.02 ng/mL (0.00-0.120)
[2019-03-09] MEDS: Albuterol-Ipratrop 3 mg / 0.5 (3 ml) UD INH SCH ×6 (00:20→19:13)
--- NOTE | 2019-03-09 01:17 | PN ---
DATE: 03/08/2019 SUBJECTIVE: The patient is coughing, congested, short of breath, and wheezing. He is dyspneic at rest, dyspnea on exertion and he has orthopnea. He has chest pain upon deep cough. He is afebrile, on antibiotics. PHYSICAL EXAMINATION: VITAL SIGNS: Blood pressure 131/71, pulse 115, respiratory rate 20, temperature 97.6. LUNGS: Bilateral inspiratory and expiratory rales and rhonchi. Decreased air entry. CARDIOVASCULAR SYSTEM: S1, S2 plus S3 positive. ABDOMEN: Soft, nontender. Bowel sounds are positive. ASSESSMENT: 1. Acute exacerbation of chronic obstructive pulmonary disease. The patient is a chronic smoker. He is coughing. He is wheezing and his lung signs are more suggestive of chronic obstructive pulmonary disease. 2. Rule out underlying congestive heart failure in a patient with coronary artery disease, status post coronary artery bypass graft. 3. Alcoholism with history of delirium tremens. 4. Anemia of iron deficiency. No active bleeding. It could be alcohol-induced gastritis. PLAN: Monitor the patient. Dennys Vasquez MD
[2019-03-09 04:10] LABS: BASO % 0.4 % (0.0-2.0); HEMOGLOBIN 8.8 g/dL (12.0-18.0); MEAN CORPUSCULAR HGB CONC 29.1 g/dL (33.0-37.0)
[2019-03-09 04:20] LABS: LYMPH % 9.8 % (20.0-40.0); MEAN CELL VOLUME 75.6 fL (80.0-94.0); MEAN PLATELET VOLUME 9.3 fL (7.2-11.7); MONO # 1.1 K/uL (0.0-0.8); MONO % 10.4 % (0.0-10.0); NEUT # 8.3 K/uL (1.8-7.0); NEUT % 79.4 % (50.0-75.0); PLATELET COUNT 190 K/uL (130-400); RBC 3.99 Mil/uL (4.40-5.90); RED CELL DISTRIBUTION WIDTH 32.8 % (11.5-14.5); WHITE BLOOD COUNT 10.4 K/uL (4.8-10.8)
[2019-03-09 04:26] LABS: CK-MB 1.64 ng/mL (0.0-3.38)
[2019-03-09 05:01] LABS: ALB/GLOB RATIO 1.2 (1.0-2.1); ALBUMIN 3.2 g/dL (3.5-5.0); ALT/SGPT 33 U/L (21-72); AST/SGOT 24 U/L (17-59); BLOOD UREA NITROGEN 14 mg/dL (9-20); CALCIUM 8.8 mg/dl (8.6-10.4); GFR NON-AFRICAN AMERICAN > 60
[2019-03-09 05:53] LABS: ANISOCYTOSIS SLIGHT; BANDS 1 % (0-2); LYMPHOCYTE 8 % (20-40); MONOCYTE 10 % (0-10); NEUTROPHIL 81 % (50-75); PLATELET ESTIMATE NORMAL (NORMAL); POIKILOCYTOSIS SLIGHT; TOTAL CELLS COUNTED 100
[2019-03-09] MEDS: MethylPREDNISolone 40 mg Vial IVP SCH ×2 (05:59→17:11)
[2019-03-09] MEDS: Ferric Sodium Gluconat Complex 62.5 mg/5 ml Vial IVPB SCH (09:23)
[2019-03-09] MEDS: Pantoprazole 40 mg EC Tab PO SCH (09:24)
[2019-03-09] MEDS: Multivitamin With Minerals Tab PO SCH (09:25)
[2019-03-09] MEDS: guaiFENesin 600 mg ER Tab PO SCH ×2 (09:26→17:11)
[2019-03-09] MEDS: Cilostazol 100 mg Tab UD PO SCH ×2 (10:30→17:10)
--- NOTE | 2019-03-09 10:37 | CP.CCUPN ---
<Chapito Espinal - Last Filed: 03/09/19 10:38> CCU Subjective - Physician Review Subjective (Free Text): 03/09/19 10:42 PGY-1 Critical Care Progress Note for Dr. Ryan Patient seen and examined at bedside. No acute events overnight. Patient reports improved chest pain (3/10 from 07/26), felt relief from nitro drip. Still complains of mild shortness of breath, but also improved. Tolerating room air/nasal canula. CCU Objective - Vital Signs / Intake & Output Vital Signs (Last 4 hours): Vital Signs Temp Pulse Resp BP Pulse Ox 03/09/19 08:16 102 H 14 144/67 03/09/19 08:00 98.6 F 99 03/09/19 07:30 78 17 175/79 H 93 L Intake and Output (Last 8hrs): Intake & Output 03/08/19 03/09/19 03/09/19 22:59 06:59 14:59 Intake Total 78.2 481.2 305.4 Output Total 700 1500 200 Balance -621.8 -1018.8 105.4 Weight 171 lb 5 oz Intake: IV 50 50 105 Intake, IV Amount 28.2 91.2 20.4 Left Antecubital 9 24 6 Left Forearm 19.2 67.2 14.4 Oral 340 180 Output: Urine 700 1500 200 Urine, Voided 700 1500 200 Other: # Voids Urine, Voided 1 # Bowel Movements 0 0 - Physical Exam Head: Positive for: Atraumatic, Normocephalic Pupils: Positive for: PERRL Extroacular Muscles: Positive for: EOMI Mouth: Positive for: Moist Mucous Membranes Respiratory/Chest: Positive for: Clear to Auscultation, Good Air Exchange. Negative for: Accessory Muscle Use, Wheezes, Rales Cardiovascular: Positive for: Regular Rate and Rhythm, Normal S1, S2. Negative for: Murmurs, Tachycardic Abdomen: Negative for: Tenderness, Distention Lower Extremity: Positive for: Normal Inspection. Negative for: Edema Neurological: Positive for: GCS=15, CN II-XII Intact Skin: Positive for: Warm, Dry, Normal Color Psychiatric: Positive for: Alert, Oriented x 3 - Medications Active Medications: Active Medications Generic Name Dose Route Start Last Admin Trade Name Freq PRN Reason Stop Dose Admin Albuterol/Ipratropium 3 ml 03/06/19 15:45 03/09/19 07:54 Duoneb 3 Mg/0.5 Mg (3 Ml) Ud INH 3 ml RQ4 EMILIE Administration Aspirin 81 mg 03/07/19 10:00 03/09/19 09:29 Ecotrin PO 81 mg DAILY EMILIE Administration Cilostazol 100 mg 03/06/19 18:00 03/09/19 10:30 Pletal PO 100 mg BID EMILIE Administration Diltiazem HCl 30 mg 03/08/19 23:15 03/09/19 10:30 Cardizem PO 30 mg Q6H EMILIE Administration Escitalopram Oxalate 10 mg 03/07/19 10:00 03/09/19 09:26 Lexapro PO 10 mg DAILY [facility] Administration Ferric Sodium Gluconate Complex 125 mg 03/07/19 10:00 03/09/19 09:23 Ferrlecit IVPB 03/15/19 10:01 125 mg DAILY [facility] Administration Folic Acid 1 mg 03/07/19 10:00 03/09/19 09:25 Folic Acid PO 1 mg DAILY [facility] Administration Gabapentin 100 mg 03/06/19 18:00 03/09/19 09:24 Neurontin PO 100 mg TID [facility] Administration Guaifenesin 600 mg 03/09/19 10:00 03/09/19 09:26 Mucinex La PO 600 mg BID [facility] Administration Home Med 2 tab 03/06/19 18:00 Acamprosate Calcium [Acamprosate Calcium] PO TID [facility] Heparin Sodium/Sodium Chloride 25,000 units in 250 mls @ 9.58 mls/hr 03/08/19 18:20 03/09/19 06:30 Heparin 81054 Units/250ml 1/2 Normal Saline IV 9 units/kg/hr .Q24H PRN 7.185 mls/hr PROTOCOL Titration Protocol 12 UNITS/KG/HR Nitroglycerin/Dextrose 50 mg in 250 mls @ 1.5 mls/hr 03/08/19 18:30 03/09/19 10:34 Nitroglycerin 50 Mg/250 Ml D5w IV 0 mcg/min .Q24H EMILIE 0 mls/hr Titration Protocol 5 MCG/MIN Losartan Potassium 50 mg 03/07/19 10:00 03/09/19 09:26 Cozaar PO 50 mg DAILY [facility] Administration Methylprednisolone 40 mg 03/06/19 18:00 03/09/19 05:59 Solu-Medrol IVP 40 mg Q12H EMILIE Administration Multivitamins/Minerals 1 tab 03/07/19 10:00 03/09/19 09:25 Therapeutic-M Tab PO 1 tab DAILY EMILIE Administration Nitroglycerin 0.4 mg 03/08/19 17:49 Nitrostat Sl Tab SL Q5M PRN Other Pantoprazole Sodium 40 mg 03/07/19 10:00 03/09/19 09:24 Protonix Ec Tab PO 40 mg DAILY EMILIE Administration Rosuvastatin Calcium 5 mg 03/06/19 22:00 03/08/19 22:23 Crestor PO 5 mg HS EMILIE Administration Tamsulosin HCl 0.4 mg 03/07/19 10:00 03/09/19 09:25 Flomax PO 0.4 mg DAILY EMILIE Administration Thiamine HCl 100 mg 03/07/19 10:00 03/09/19 09:25 Vitamin B1 Tab PO 100 mg DAILY EMILIE Administration Topiramate 50 mg 03/06/19 18:00 03/09/19 09:24 Topamax PO 50 mg BID EMILIE Administration - Patient Studies Lab Studies: Lab Studies 03/09/19 03/09/19 03/09/19 Range/Units 04:04 04:04 04:04 WBC 10.4 (4.8-10.8) K/uL RBC 3.99 L (4.40-5.90) Mil/uL Hgb 8.8 L (12.0-18.0) g/dL Hct 30.2 L (35.0-51.0) % MCV 75.6 L (80.0-94.0) fL MCH 22.0 L (27.0-31.0) pg MCHC 29.1 L (33.0-37.0) g/dL RDW 32.8 H (11.5-14.5) % Plt Count 190 (130-400) K/uL MPV 9.3 (7.2-11.7) fL Neut % (Auto) 79.4 H (50.0-75.0) % Lymph % (Auto) 9.8 L (20.0-40.0) % Faulk % (Auto) 10.4 H (0.0-10.0) % Eos % (Auto) 0.0 (0.0-4.0) % Baso % (Auto) 0.4 (0.0-2.0) % Neut # (Auto) 8.3 H (1.8-7.0) K/uL Lymph # (Auto) 1.0 (1.0-4.3) K/uL Faulk # (Auto) 1.1 H (0.0-0.8) K/uL Eos # (Auto) 0.0 (0.0-0.7) K/uL Baso # (Auto) 0.0 (0.0-0.2) K/uL Neutrophils % (Manual) 81 H (50-75) % Band Neutrophils % 1 (0-2) % Lymphocytes % (Manual) 8 L (20-40) % Monocytes % (Manual) 10 (0-10) % Platelet Estimate Normal (NORMAL) Hypochromasia (manual) Poikilocytosis (manual Slight Anisocytosis (manual) Slight Microcytosis (manual) Macrocytosis (manual) PT (9.7-12.2) SECONDS INR APTT 211.0 H* D (21-34) SECONDS Sodium 135 (132-148) mmol/L Potassium 4.0 (3.6-5.2) mmol/L Chloride 101 (98-107) mmol/L Carbon Dioxide 30 (22-30) mmol/L Anion Gap 8 L (10-20) BUN 14 (9-20) mg/dL Creatinine 1.1 (0.8-1.5) mg/dL Est GFR ( Amer) > 60 Est GFR (Non-Af Amer) > 60 Random Glucose 134 H (75-110) mg/dL Calcium 8.8 (8.6-10.4) mg/dl Phosphorus 3.4 (2.5-4.5) mg/dL Magnesium 1.9 (1.6-2.3) mg/dL Total Bilirubin 0.5 (0.2-1.3) mg/dL AST 24 (17-59) U/L ALT 33 (21-72) U/L Alkaline Phosphatase 73 (38-126) U/L Total Creatine Kinase < 20 L (55-170) U/L CK-MB (Mass) 1.64 (0.0-3.38) ng/mL Troponin I 0.0190 (0.00-0.120) ng/mL NT-Pro-B Natriuret Pep (0-900) pg/mL Total Protein 5.9 L (6.3-8.3) g/dL Albumin 3.2 L (3.5-5.0) g/dL Globulin 2.7 (2.2-3.9) gm/dL Albumin/Globulin Ratio 1.2 (1.0-2.1) Free T4 (0.78-2.19) ng/dL TSH 3rd Generation (0.46-4.68) mIU/L 03/08/19 03/08/19 03/08/19 Range/Units 23:38 23:38 18:16 WBC (4.8-10.8) K/uL RBC (4.40-5.90) Mil/uL Hgb (12.0-18.0) g/dL Hct (35.0-51.0) % MCV (80.0-94.0) fL MCH (27.0-31.0) pg MCHC (33.0-37.0) g/dL RDW (11.5-14.5) % Plt Count (130-400) K/uL MPV (7.2-11.7) fL Neut % (Auto) (50.0-75.0) % Lymph % (Auto) (20.0-40.0) % Faulk % (Auto) (0.0-10.0) % Eos % (Auto) (0.0-4.0) % Baso % (Auto) (0.0-2.0) % Neut # (Auto) (1.8-7.0) K/uL Lymph # (Auto) (1.0-4.3) K/uL Faulk # (Auto) (0.0-0.8) K/uL Eos # (Auto) (0.0-0.7) K/uL Baso # (Auto) (0.0-0.2) K/uL Neutrophils % (Manual) (50-75) % Band Neutrophils % (0-2) % Lymphocytes % (Manual) (20-40) % Monocytes % (Manual) (0-10) % Platelet Estimate (NORMAL) Hypochromasia (manual) Poikilocytosis (manual Anisocytosis (manual) Microcytosis (manual) Macrocytosis (manual) PT 12.7 H (9.7-12.2) SECONDS INR 1.2 APTT 43.0 H (21-34) SECONDS Sodium (132-148) mmol/L Potassium (3.6-5.2) mmol/L Chloride (98-107) mmol/L Carbon Dioxide (22-30) mmol/L Anion Gap (10-20) BUN (9-20) mg/dL Creatinine (0.8-1.5) mg/dL Est GFR ( Amer) Est GFR (Non-Af Amer) Random Glucose (75-110) mg/dL Calcium (8.6-10.4) mg/dl Phosphorus (2.5-4.5) mg/dL Magnesium (1.6-2.3) mg/dL Total Bilirubin (0.2-1.3) mg/dL AST (17-59) U/L ALT (21-72) U/L Alkaline Phosphatase (38-126) U/L Total Creatine Kinase 22 L (55-170) U/L CK-MB (Mass) 1.83 (0.0-3.38) ng/mL Troponin I 0.0200 (0.00-0.120) ng/mL NT-Pro-B Natriuret Pep (0-900) pg/mL Total Protein (6.3-8.3) g/dL Albumin (3.5-5.0) g/dL Globulin (2.2-3.9) gm/dL Albumin/Globulin Ratio (1.0-2.1) Free T4 1.03 (0.78-2.19) ng/dL TSH 3rd Generation 1.37 (0.46-4.68) mIU/L 03/08/19 03/08/19 Range/Units 18:05 18:05 WBC 10.1 (4.8-10.8) K/uL RBC 3.87 L (4.40-5.90) Mil/uL Hgb 8.7 L (12.0-18.0) g/dL Hct 29.1 L (35.0-51.0) % MCV 75.2 L (80.0-94.0) fL MCH 22.2 L (27.0-31.0) pg MCHC 29.5 L (33.0-37.0) g/dL RDW 32.4 H (11.5-14.5) % Plt Count 179 (130-400) K/uL MPV 9.1 (7.2-11.7) fL Neut % (Auto) 80.8 H (50.0-75.0) % Lymph % (Auto) 6.8 L (20.0-40.0) % Faulk % (Auto) 12.3 H (0.0-10.0) % Eos % (Auto) 0.0 (0.0-4.0) % Baso % (Auto) 0.1 (0.0-2.0) % Neut # (Auto) 8.3 H (1.8-7.0) K/uL Lymph # (Auto) 0.7 L (1.0-4.3) K/uL Faulk # (Auto) 1.3 H (0.0-0.8) K/uL Eos # (Auto) 0.0 (0.0-0.7) K/uL Baso # (Auto) 0.0 (0.0-0.2) K/uL Neutrophils % (Manual) 81 H (50-75) % Band Neutrophils % (0-2) % Lymphocytes % (Manual) 6 L (20-40) % Monocytes % (Manual) 13 H (0-10) % Platelet Estimate Normal (NORMAL) Hypochromasia (manual) Moderate Poikilocytosis (manual Slight Anisocytosis (manual) Slight Microcytosis (manual) Slight Macrocytosis (manual) Slight PT (9.7-12.2) SECONDS INR APTT (21-34) SECONDS Sodium 136 (132-148) mmol/L Potassium 4.1 (3.6-5.2) mmol/L Chloride 102 (98-107) mmol/L Carbon Dioxide 27 (22-30) mmol/L Anion Gap 11 (10-20) BUN 14 (9-20) mg/dL Creatinine 1.0 (0.8-1.5) mg/dL Est GFR ( Amer) > 60 Est GFR (Non-Af Amer) > 60 Random Glucose 124 H (75-110) mg/dL Calcium 8.6 (8.6-10.4) mg/dl Phosphorus 2.2 L (2.5-4.5) mg/dL Magnesium 2.0 (1.6-2.3) mg/dL Total Bilirubin 0.3 (0.2-1.3) mg/dL AST 19 (17-59) U/L ALT 36 (21-72) U/L Alkaline Phosphatase 86 (38-126) U/L Total Creatine Kinase 26 L (55-170) U/L CK-MB (Mass) 1.93 (0.0-3.38) ng/mL Troponin I 0.0140 (0.00-0.120) ng/mL NT-Pro-B Natriuret Pep 2180 H (0-900) pg/mL Total Protein 5.9 L (6.3-8.3) g/dL Albumin 3.3 L (3.5-5.0) g/dL Globulin 2.7 (2.2-3.9) gm/dL Albumin/Globulin Ratio 1.2 (1.0-2.1) Free T4 (0.78-2.19) ng/dL TSH 3rd Generation (0.46-4.68) mIU/L Laboratory Results - last 24 hr 03/08/19 03/08/19 03/08/19 18:05 18:05 18:16 WBC 10.1 RBC 3.87 L Hgb 8.7 L Hct 29.1 L MCV 75.2 L MCH 22.2 L MCHC 29.5 L RDW 32.4 H Plt Count 179 MPV 9.1 Neut % (Auto) 80.8 H Lymph % (Auto) 6.8 L Faulk % (Auto) 12.3 H Eos % (Auto) 0.0 Baso % (Auto) 0.1 Neut # (Auto) 8.3 H Lymph # (Auto) 0.7 L Faulk # (Auto) 1.3 H Eos # (Auto) 0.0 Baso # (Auto) 0.0 Neutrophils % (Manual) 81 H Band Neutrophils % Lymphocytes % (Manual) 6 L Monocytes % (Manual) 13 H Platelet Estimate Normal Hypochromasia (manual) Moderate Poikilocytosis (manual Slight Anisocytosis (manual) Slight Microcytosis (manual) Slight Macrocytosis (manual) Slight PT 12.7 H INR 1.2 APTT 43.0 H Sodium 136 Potassium 4.1 Chloride 102 Carbon Dioxide 27 Anion Gap 11 BUN 14 Creatinine 1.0 Est GFR ( Amer) > 60 Est GFR (Non-Af Amer) > 60 Random Glucose 124 H Calcium 8.6 Phosphorus 2.2 L Magnesium 2.0 Total Bilirubin 0.3 AST 19 ALT 36 Alkaline Phosphatase 86 Total Creatine Kinase 26 L CK-MB (Mass) 1.93 Troponin I 0.0140 NT-Pro-B Natriuret Pep 2180 H Total Protein 5.9 L Albumin 3.3 L Globulin 2.7 Albumin/Globulin Ratio 1.2 Free T4 TSH 3rd Generation 03/08/19 03/08/19 03/09/19 23:38 23:38 04:04 WBC RBC Hgb Hct MCV MCH MCHC RDW Plt Count MPV Neut % (Auto) Lymph % (Auto) Faulk % (Auto) Eos % (Auto) Baso % (Auto) Neut # (Auto) Lymph # (Auto) Faulk # (Auto) Eos # (Auto) Baso # (Auto) Neutrophils % (Manual) Band Neutrophils % Lymphocytes % (Manual) Monocytes % (Manual) Platelet Estimate Hypochromasia (manual) Poikilocytosis (manual Anisocytosis (manual) Microcytosis (manual) Macrocytosis (manual) PT INR APTT Sodium 135 Potassium 4.0 Chloride 101 Carbon Dioxide 30 Anion Gap 8 L BUN 14 Creatinine 1.1 Est GFR ( Amer) > 60 Est GFR (Non-Af Amer) > 60 Random Glucose 134 H Calcium 8.8 Phosphorus 3.4 Magnesium 1.9 Total Bilirubin 0.5 AST 24 ALT 33 Alkaline Phosphatase 73 Total Creatine Kinase 22 L < 20 L CK-MB (Mass) 1.83 1.64 Troponin I 0.0200 0.0190 NT-Pro-B Natriuret Pep Total Protein 5.9 L Albumin 3.2 L Globulin 2.7 Albumin/Globulin Ratio 1.2 Free T4 1.03 TSH 3rd Generation 1.37 03/09/19 03/09/19 04:04 04:04 WBC 10.4 RBC 3.99 L Hgb 8.8 L Hct 30.2 L MCV 75.6 L MCH 22.0 L MCHC 29.1 L RDW 32.8 H Plt Count 190 MPV 9.3 Neut % (Auto) 79.4 H Lymph % (Auto) 9.8 L Faulk % (Auto) 10.4 H Eos % (Auto) 0.0 Baso % (Auto) 0.4 Neut # (Auto) 8.3 H Lymph # (Auto) 1.0 Faulk # (Auto) 1.1 H Eos # (Auto) 0.0 Baso # (Auto) 0.0 Neutrophils % (Manual) 81 H Band Neutrophils % 1 Lymphocytes % (Manual) 8 L Monocytes % (Manual) 10 Platelet Estimate Normal Hypochromasia (manual) Poikilocytosis (manual Slight Anisocytosis (manual) Slight Microcytosis (manual) Macrocytosis (manual) PT INR APTT 211.0 H* D Sodium Potassium Chloride Carbon Dioxide Anion Gap BUN Creatinine Est GFR ( Amer) Est GFR (Non-Af Amer) Random Glucose Calcium Phosphorus Magnesium Total Bilirubin AST ALT Alkaline Phosphatase Total Creatine Kinase CK-MB (Mass) Troponin I NT-Pro-B Natriuret Pep Total Protein Albumin Globulin Albumin/Globulin Ratio Free T4 TSH 3rd Generation Radiology Impressions: Radiology Impressions Chest X-Ray 03/08/19 17:47 IMPRESSION: Improving but persistent pulmonary venous congestion. Cardiomegaly. Median sternotomy wires with evidence of CABG. Atherosclerotic calcifications of the aorta. 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 Moraes - f/u -EP consulted, Dr. Middleton - f/u -ICU cardiac monitoring -Cardizem ggt - discontinued -Nitro ggt -Eliquis 30 mg BID Elevated pro-BNP -Monitor Is and Os -f/u cardio recs Pulm COPD -Continue home meds -Duonebs Q4 EMILIE Heme Anemia -Home Feosol -Monitor H and H PPx -Eliquis 30 mg BID Assessment and plan d/w Dr. Connor Espinal, PGY-1 <Delfino Ryan S - Last Filed: 03/09/19 13:24> CCU Subjective - Physician Review Critical Care Time Spent (in minutes): 40 CCU Objective - Vital Signs / Intake & Output Vital Signs (Last 4 hours): Vital Signs Temp Pulse Resp BP Pulse Ox 03/09/19 12:16 74 17 125/52 L 95 03/09/19 12:00 98.5 F 96 03/09/19 11:16 142/60 03/09/19 11:00 71 19 98 03/09/19 10:16 66 18 137/65 96 Intake and Output (Last 8hrs): Intake & Output 03/08/19 03/09/19 03/09/19 22:59 06:59 14:59 Intake Total 78.2 481.2 645.0 Output Total 700 1500 950 Balance -621.8 -1018.8 -305.0 Weight 171 lb 5 oz Intake: IV 50 50 109 Intake, IV Amount 28.2 91.2 56.0 Left Antecubital 9 24 20 Left Forearm 19.2 67.2 36.0 Oral 340 480 Output: Urine 700 1500 950 Urine, Voided 700 1500 950 Other: # Voids Urine, Voided 1 # Bowel Movements 0 0 - Medications Active Medications: Active Medications Generic Name Dose Route Start Last Admin Trade Name Freq PRN Reason Stop Dose Admin Albuterol/Ipratropium 3 ml 03/06/19 15:45 03/09/19 11:08 Duoneb 3 Mg/0.5 Mg (3 Ml) Ud INH 3 ml RQ4 EMILIE Administration Aspirin 81 mg 03/07/19 10:00 03/09/19 09:29 Ecotrin PO 81 mg DAILY EMILIE Administration Cilostazol 100 mg 03/06/19 18:00 03/09/19 10:30 Pletal PO 100 mg BID EMILIE Administration Diltiazem HCl 30 mg 03/08/19 23:15 03/09/19 10:30 Cardizem PO 30 mg Q6H EMILIE Administration Enoxaparin Sodium 60 mg 03/09/19 22:00 Lovenox SC Q12 EMILIE Escitalopram Oxalate 10 mg 03/07/19 10:00 03/09/19 09:26 Lexapro PO 10 mg DAILY EMILIE Administration Ferric Sodium Gluconate Complex 125 mg 03/07/19 10:00 03/09/19 09:23 Ferrlecit IVPB 03/15/19 10:01 125 mg DAILY EMILIE Administration Folic Acid 1 mg 03/07/19 10:00 03/09/19 09:25 Folic Acid PO 1 mg DAILY EMILIE Administration Gabapentin 100 mg 03/06/19 18:00 03/09/19 09:24 Neurontin PO 100 mg TID [facility] Administration Guaifenesin 600 mg 03/09/19 10:00 03/09/19 09:26 Mucinex La PO 600 mg BID EMILIE Administration Nitroglycerin/Dextrose 50 mg in 250 mls @ 1.5 mls/hr 03/08/19 18:30 03/09/19 12:00 Nitroglycerin 50 Mg/250 Ml D5w IV 10 mcg/min .Q24H [facility] 3 mls/hr Titration Protocol 5 MCG/MIN Losartan Potassium 50 mg 03/07/19 10:00 03/09/19 09:26 Cozaar PO 50 mg DAILY [facility] Administration Methylprednisolone 40 mg 03/06/19 18:00 03/09/19 05:59 Solu-Medrol IVP 40 mg Q12H [facility] Administration Multivitamins/Minerals 1 tab 03/07/19 10:00 03/09/19 09:25 Therapeutic-M Tab PO 1 tab DAILY [facility] Administration Naltrexone HCl 50 mg 03/10/19 10:00 Revia PO DAILY [facility] Nitroglycerin 0.4 mg 03/08/19 17:49 Nitrostat Sl Tab SL Q5M PRN Other Pantoprazole Sodium 40 mg 03/07/19 10:00 03/09/19 09:24 Protonix Ec Tab PO 40 mg DAILY [facility] Administration Rosuvastatin Calcium 5 mg 03/06/19 22:00 03/08/19 22:23 Crestor PO 5 mg HS EMILIE Administration Tamsulosin HCl 0.4 mg 03/07/19 10:00 03/09/19 09:25 Flomax PO 0.4 mg DAILY [facility] Administration Thiamine HCl 100 mg 03/07/19 10:00 03/09/19 09:25 Vitamin B1 Tab PO 100 mg DAILY EMILIE Administration Topiramate 50 mg 03/06/19 18:00 03/09/19 09:24 Topamax PO 50 mg BID EMILIE Administration - Patient Studies Lab Studies: Lab Studies 03/09/19 03/09/19 03/09/19 Range/Units 12:41 04:04 04:04 WBC 10.4 (4.8-10.8) K/uL RBC 3.99 L (4.40-5.90) Mil/uL Hgb 8.8 L (12.0-18.0) g/dL Hct 30.2 L (35.0-51.0) % MCV 75.6 L (80.0-94.0) fL MCH 22.0 L (27.0-31.0) pg MCHC 29.1 L (33.0-37.0) g/dL RDW 32.8 H (11.5-14.5) % Plt Count 190 (130-400) K/uL MPV 9.3 (7.2-11.7) fL Neut % (Auto) 79.4 H (50.0-75.0) % Lymph % (Auto) 9.8 L (20.0-40.0) % Faulk % (Auto) 10.4 H (0.0-10.0) % Eos % (Auto) 0.0 (0.0-4.0) % Baso % (Auto) 0.4 (0.0-2.0) % Neut # (Auto) 8.3 H (1.8-7.0) K/uL Lymph # (Auto) 1.0 (1.0-4.3) K/uL Faulk # (Auto) 1.1 H (0.0-0.8) K/uL Eos # (Auto) 0.0 (0.0-0.7) K/uL Baso # (Auto) 0.0 (0.0-0.2) K/uL Neutrophils % (Manual) 81 H (50-75) % Band Neutrophils % 1 (0-2) % Lymphocytes % (Manual) 8 L (20-40) % Monocytes % (Manual) 10 (0-10) % Platelet Estimate Normal (NORMAL) Hypochromasia (manual) Poikilocytosis (manual Slight Anisocytosis (manual) Slight Microcytosis (manual) Macrocytosis (manual) PT (9.7-12.2) SECONDS INR APTT 90.0 H D 211.0 H* D (21-34) SECONDS Sodium (132-148) mmol/L Potassium (3.6-5.2) mmol/L Chloride (98-107) mmol/L Carbon Dioxide (22-30) mmol/L Anion Gap (10-20) BUN (9-20) mg/dL Creatinine (0.8-1.5) mg/dL Est GFR ( Amer) Est GFR (Non-Af Amer) Random Glucose (75-110) mg/dL Calcium (8.6-10.4) mg/dl Phosphorus (2.5-4.5) mg/dL Magnesium (1.6-2.3) mg/dL Total Bilirubin (0.2-1.3) mg/dL AST (17-59) U/L ALT (21-72) U/L Alkaline Phosphatase (38-126) U/L Total Creatine Kinase (55-170) U/L CK-MB (Mass) (0.0-3.38) ng/mL Troponin I (0.00-0.120) ng/mL NT-Pro-B Natriuret Pep (0-900) pg/mL Total Protein (6.3-8.3) g/dL Albumin (3.5-5.0) g/dL Globulin (2.2-3.9) gm/dL Albumin/Globulin Ratio (1.0-2.1) Free T4 (0.78-2.19) ng/dL TSH 3rd Generation (0.46-4.68) mIU/L 03/09/19 03/08/19 03/08/19 Range/Units 04:04 23:38 23:38 WBC (4.8-10.8) K/uL RBC (4.40-5.90) Mil/uL Hgb (12.0-18.0) g/dL Hct (35.0-51.0) % MCV (80.0-94.0) fL MCH (27.0-31.0) pg MCHC (33.0-37.0) g/dL RDW (11.5-14.5) % Plt Count (130-400) K/uL MPV (7.2-11.7) fL Neut % (Auto) (50.0-75.0) % Lymph % (Auto) (20.0-40.0) % Faulk % (Auto) (0.0-10.0) % Eos % (Auto) (0.0-4.0) % Baso % (Auto) (0.0-2.0) % Neut # (Auto) (1.8-7.0) K/uL Lymph # (Auto) (1.0-4.3) K/uL Faulk # (Auto) (0.0-0.8) K/uL Eos # (Auto) (0.0-0.7) K/uL Baso # (Auto) (0.0-0.2) K/uL Neutrophils % (Manual) (50-75) % Band Neutrophils % (0-2) % Lymphocytes % (Manual) (20-40) % Monocytes % (Manual) (0-10) % Platelet Estimate (NORMAL) Hypochromasia (manual) Poikilocytosis (manual Anisocytosis (manual) Microcytosis (manual) Macrocytosis (manual) PT (9.7-12.2) SECONDS INR APTT (21-34) SECONDS Sodium 135 (132-148) mmol/L Potassium 4.0 (3.6-5.2) mmol/L Chloride 101 (98-107) mmol/L Carbon Dioxide 30 (22-30) mmol/L Anion Gap 8 L (10-20) BUN 14 (9-20) mg/dL Creatinine 1.1 (0.8-1.5) mg/dL Est GFR ( Amer) > 60 Est GFR (Non-Af Amer) > 60 Random Glucose 134 H (75-110) mg/dL Calcium 8.8 (8.6-10.4) mg/dl Phosphorus 3.4 (2.5-4.5) mg/dL Magnesium 1.9 (1.6-2.3) mg/dL Total Bilirubin 0.5 (0.2-1.3) mg/dL AST 24 (17-59) U/L ALT 33 (21-72) U/L Alkaline Phosphatase 73 (38-126) U/L Total Creatine Kinase < 20 L 22 L (55-170) U/L CK-MB (Mass) 1.64 1.83 (0.0-3.38) ng/mL Troponin I 0.0190 0.0200 (0.00-0.120) ng/mL NT-Pro-B Natriuret Pep (0-900) pg/mL Total Protein 5.9 L (6.3-8.3) g/dL Albumin 3.2 L (3.5-5.0) g/dL Globulin 2.7 (2.2-3.9) gm/dL Albumin/Globulin Ratio 1.2 (1.0-2.1) Free T4 1.03 (0.78-2.19) ng/dL TSH 3rd Generation 1.37 (0.46-4.68) mIU/L 03/08/19 03/08/19 03/08/19 Range/Units 18:16 18:05 18:05 WBC 10.1 (4.8-10.8) K/uL RBC 3.87 L (4.40-5.90) Mil/uL Hgb 8.7 L (12.0-18.0) g/dL Hct 29.1 L (35.0-51.0) % MCV 75.2 L (80.0-94.0) fL MCH 22.2 L (27.0-31.0) pg MCHC 29.5 L (33.0-37.0) g/dL RDW 32.4 H (11.5-14.5) % Plt Count 179 (130-400) K/uL MPV 9.1 (7.2-11.7) fL Neut % (Auto) 80.8 H (50.0-75.0) % Lymph % (Auto) 6.8 L (20.0-40.0) % Faulk % (Auto) 12.3 H (0.0-10.0) % Eos % (Auto) 0.0 (0.0-4.0) % Baso % (Auto) 0.1 (0.0-2.0) % Neut # (Auto) 8.3 H (1.8-7.0) K/uL Lymph # (Auto) 0.7 L (1.0-4.3) K/uL Faulk # (Auto) 1.3 H (0.0-0.8) K/uL Eos # (Auto) 0.0 (0.0-0.7) K/uL Baso # (Auto) 0.0 (0.0-0.2) K/uL Neutrophils % (Manual) 81 H (50-75) % Band Neutrophils % (0-2) % Lymphocytes % (Manual) 6 L (20-40) % Monocytes % (Manual) 13 H (0-10) % Platelet Estimate Normal (NORMAL) Hypochromasia (manual) Moderate Poikilocytosis (manual Slight Anisocytosis (manual) Slight Microcytosis (manual) Slight Macrocytosis (manual) Slight PT 12.7 H (9.7-12.2) SECONDS INR 1.2 APTT 43.0 H (21-34) SECONDS Sodium 136 (132-148) mmol/L Potassium 4.1 (3.6-5.2) mmol/L Chloride 102 (98-107) mmol/L Carbon Dioxide 27 (22-30) mmol/L Anion Gap 11 (10-20) BUN 14 (9-20) mg/dL Creatinine 1.0 (0.8-1.5) mg/dL Est GFR ( Amer) > 60 Est GFR (Non-Af Amer) > 60 Random Glucose 124 H (75-110) mg/dL Calcium 8.6 (8.6-10.4) mg/dl Phosphorus 2.2 L (2.5-4.5) mg/dL Magnesium 2.0 (1.6-2.3) mg/dL Total Bilirubin 0.3 (0.2-1.3) mg/dL AST 19 (17-59) U/L ALT 36 (21-72) U/L Alkaline Phosphatase 86 (38-126) U/L Total Creatine Kinase 26 L (55-170) U/L CK-MB (Mass) 1.93 (0.0-3.38) ng/mL Troponin I 0.0140 (0.00-0.120) ng/mL NT-Pro-B Natriuret Pep 2180 H (0-900) pg/mL Total Protein 5.9 L (6.3-8.3) g/dL Albumin 3.3 L (3.5-5.0) g/dL Globulin 2.7 (2.2-3.9) gm/dL Albumin/Globulin Ratio 1.2 (1.0-2.1) Free T4 (0.78-2.19) ng/dL TSH 3rd Generation (0.46-4.68) mIU/L Laboratory Results - last 24 hr 03/08/19 03/08/19 03/08/19 18:05 18:05 18:16 WBC 10.1 RBC 3.87 L Hgb 8.7 L Hct 29.1 L MCV 75.2 L MCH 22.2 L MCHC 29.5 L RDW 32.4 H Plt Count 179 MPV 9.1 Neut % (Auto) 80.8 H Lymph % (Auto) 6.8 L Faulk % (Auto) 12.3 H Eos % (Auto) 0.0 Baso % (Auto) 0.1 Neut # (Auto) 8.3 H Lymph # (Auto) 0.7 L Faulk # (Auto) 1.3 H Eos # (Auto) 0.0 Baso # (Auto) 0.0 Neutrophils % (Manual) 81 H Band Neutrophils % Lymphocytes % (Manual) 6 L Monocytes % (Manual) 13 H Platelet Estimate Normal Hypochromasia (manual) Moderate Poikilocytosis (manual Slight Anisocytosis (manual) Slight Microcytosis (manual) Slight Macrocytosis (manual) Slight PT 12.7 H INR 1.2 APTT 43.0 H Sodium 136 Potassium 4.1 Chloride 102 Carbon Dioxide 27 Anion Gap 11 BUN 14 Creatinine 1.0 Est GFR ( Amer) > 60 Est GFR (Non-Af Amer) > 60 Random Glucose 124 H Calcium 8.6 Phosphorus 2.2 L Magnesium 2.0 Total Bilirubin 0.3 AST 19 ALT 36 Alkaline Phosphatase 86 Total Creatine Kinase 26 L CK-MB (Mass) 1.93 Troponin I 0.0140 NT-Pro-B Natriuret Pep 2180 H Total Protein 5.9 L Albumin 3.3 L Globulin 2.7 Albumin/Globulin Ratio 1.2 Free T4 TSH 3rd Generation 03/08/19 03/08/19 03/09/19 23:38 23:38 04:04 WBC RBC Hgb Hct MCV MCH MCHC RDW Plt Count MPV Neut % (Auto) Lymph % (Auto) Faulk % (Auto) Eos % (Auto) Baso % (Auto) Neut # (Auto) Lymph # (Auto) Faulk # (Auto) Eos # (Auto) Baso # (Auto) Neutrophils % (Manual) Band Neutrophils % Lymphocytes % (Manual) Monocytes % (Manual) Platelet Estimate Hypochromasia (manual) Poikilocytosis (manual Anisocytosis (manual) Microcytosis (manual) Macrocytosis (manual) PT INR APTT Sodium 135 Potassium 4.0 Chloride 101 Carbon Dioxide 30 Anion Gap 8 L BUN 14 Creatinine 1.1 Est GFR ( Amer) > 60 Est GFR (Non-Af Amer) > 60 Random Glucose 134 H Calcium 8.8 Phosphorus 3.4 Magnesium 1.9 Total Bilirubin 0.5 AST 24 ALT 33 Alkaline Phosphatase 73 Total Creatine Kinase 22 L < 20 L CK-MB (Mass) 1.83 1.64 Troponin I 0.0200 0.0190 NT-Pro-B Natriuret Pep Total Protein 5.9 L Albumin 3.2 L Globulin 2.7 Albumin/Globulin Ratio 1.2 Free T4 1.03 TSH 3rd Generation 1.37 03/09/19 03/09/19 03/09/19 04:04 04:04 12:41 WBC 10.4 RBC 3.99 L Hgb 8.8 L Hct 30.2 L MCV 75.6 L MCH 22.0 L MCHC 29.1 L RDW 32.8 H Plt Count 190 MPV 9.3 Neut % (Auto) 79.4 H Lymph % (Auto) 9.8 L Faulk % (Auto) 10.4 H Eos % (Auto) 0.0 Baso % (Auto) 0.4 Neut # (Auto) 8.3 H Lymph # (Auto) 1.0 Faulk # (Auto) 1.1 H Eos # (Auto) 0.0 Baso # (Auto) 0.0 Neutrophils % (Manual) 81 H Band Neutrophils % 1 Lymphocytes % (Manual) 8 L Monocytes % (Manual) 10 Platelet Estimate Normal Hypochromasia (manual) Poikilocytosis (manual Slight Anisocytosis (manual) Slight Microcytosis (manual) Macrocytosis (manual) PT INR APTT 211.0 H* D 90.0 H D Sodium Potassium Chloride Carbon Dioxide Anion Gap BUN Creatinine Est GFR ( Amer) Est GFR (Non-Af Amer) Random Glucose Calcium Phosphorus Magnesium Total Bilirubin AST ALT Alkaline Phosphatase Total Creatine Kinase CK-MB (Mass) Troponin I NT-Pro-B Natriuret Pep Total Protein Albumin Globulin Albumin/Globulin Ratio Free T4 TSH 3rd Generation Radiology Impressions: Radiology Impressions Chest X-Ray 03/08/19 17:47 IMPRESSION: Improving but persistent pulmonary venous congestion. Cardiomegaly. Median sternotomy wires with evidence of CABG. Atherosclerotic calcifications of the aorta. 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 Case discussed with housestaff in the morning rounds. Denies any chest pain, denies fever chills Complaining of productive cough Taper off Tridil drip On heparin drip For repeat echocardiogram Cardiology follow-up
--- NOTE | 2019-03-09 18:32 | CARD ---
APPROVED REPORT Date of service: 03/08/2019 EKG Measurement Heart [id number] <Conclusion> Atrial flutter with variable AV block ST & T wave abnormality, consider anterior ischemia Abnormal ECG
[2019-03-09] MEDS: Nitroglycerin 50mg in D5W 50 MG/250 ML BOTTLE IV SCH (19:16)
[2019-03-09] MEDS: Enoxaparin 60 mg Syringe SC SCH (21:54)
--- NOTE | 2019-03-09 22:15 | CP.PCM.PN ---
Subjective - Date & Time of Evaluation Date of Evaluation: 03/09/19 Time of Evaluation: 07:35 - Subjective Subjective: dict Objective - Vital Signs/Intake and Output Vital Signs (last 24 hours): Temp Pulse Resp BP Pulse Ox 98.8 F 79 10 L 127/55 L 98 03/09/19 20:00 03/09/19 22:00 03/09/19 22:00 03/09/19 21:16 03/09/19 19:16 Intake and Output: 03/09/19 03/10/19 18:59 06:59 Intake Total 901.0 0 Output Total 2000 700 Balance -1099.0 -700 - Medications Medications: Current Medications Albuterol/Ipratropium (Duoneb 3 Mg/0.5 Mg (3 Ml) Ud) 3 ml INH RQ4 [facility] Last Admin: 03/09/19 19:13 Dose: 3 ml Aspirin (Ecotrin) 81 mg PO DAILY [facility] Last Admin: 03/09/19 09:29 Dose: 81 mg Cilostazol (Pletal) 100 mg PO BID [facility] Last Admin: 03/09/19 17:10 Dose: 100 mg Diltiazem HCl (Cardizem) 30 mg PO Q6H [facility] Last Admin: 03/09/19 21:54 Dose: 30 mg Enoxaparin Sodium (Lovenox) 60 mg SC Q12 [facility] Last Admin: 03/09/19 21:54 Dose: 60 mg Escitalopram Oxalate (Lexapro) 10 mg PO DAILY [facility] Last Admin: 03/09/19 09:26 Dose: 10 mg Ferric Sodium Gluconate Complex (Ferrlecit) 125 mg IVPB DAILY [facility] Stop: 03/15/19 10:01 Last Admin: 03/09/19 09:23 Dose: 125 mg Folic Acid (Folic Acid) 1 mg PO DAILY [facility] Last Admin: 03/09/19 09:25 Dose: 1 mg Gabapentin (Neurontin) 100 mg PO TID [facility] Last Admin: 03/09/19 17:11 Dose: 100 mg Guaifenesin (Mucinex La) 600 mg PO BID [facility] Last Admin: 03/09/19 17:11 Dose: 600 mg Nitroglycerin/Dextrose (Nitroglycerin 50 Mg/250 Ml D5w) 50 mg in 250 mls @ 1.5 mls/hr IV .Q24H [facility]; Protocol Last Admin: 03/09/19 19:16 Dose: Not Given Lorazepam (Ativan) 1 mg IVP Q6H PRN PRN Reason: Symptoms of alcohol withdrawl Last Admin: 03/09/19 21:53 Dose: 1 mg Losartan Potassium (Cozaar) 50 mg PO DAILY [facility] Last Admin: 03/09/19 09:26 Dose: 50 mg Methylprednisolone (Solu-Medrol) 40 mg IVP Q12H [facility] Last Admin: 03/09/19 17:11 Dose: 40 mg Multivitamins/Minerals (Therapeutic-M Tab) 1 tab PO DAILY [facility] Last Admin: 03/09/19 09:25 Dose: 1 tab Naltrexone HCl (Revia) 50 mg PO DAILY [facility] Nitroglycerin (Nitrostat Sl Tab) 0.4 mg SL Q5M PRN PRN Reason: Other Pantoprazole Sodium (Protonix Ec Tab) 40 mg PO DAILY [facility] Last Admin: 03/09/19 09:24 Dose: 40 mg Rosuvastatin Calcium (Crestor) 5 mg PO HS [facility] Last Admin: 03/09/19 21:54 Dose: 5 mg Tamsulosin HCl (Flomax) 0.4 mg PO DAILY [facility] Last Admin: 03/09/19 09:25 Dose: 0.4 mg Thiamine HCl (Vitamin B1 Tab) 100 mg PO DAILY [facility] Last Admin: 03/09/19 09:25 Dose: 100 mg Topiramate (Topamax) 50 mg PO BID [facility] Last Admin: 03/09/19 17:10 Dose: 50 mg - Labs Labs: 03/09/19 04:04 03/09/19 04:04 PT 12.7 SECONDS (9.7-12.2) H 03/08/19 18:16 INR 1.2 03/08/19 18:16 APTT 90.0 SECONDS (21-34) H D 03/09/19 12:41
[2019-03-10] MEDS: Albuterol-Ipratrop 3 mg / 0.5 (3 ml) UD INH SCH ×6 (00:27→19:35)
[2019-03-10] MEDS: MethylPREDNISolone 40 mg Vial IVP SCH ×2 (05:03→18:56)
[2019-03-10 05:32] LABS: ALB/GLOB RATIO 1.2 (1.0-2.1); ALBUMIN 3.2 g/dL (3.5-5.0); ALT/SGPT 35 U/L (21-72); AST/SGOT 27 U/L (17-59); BLOOD UREA NITROGEN 15 mg/dL (9-20); CALCIUM 8.8 mg/dl (8.6-10.4); GFR NON-AFRICAN AMERICAN > 60
[2019-03-10 05:42] LABS: HEMOGLOBIN 9.7 g/dL (12.0-18.0); MEAN CELL VOLUME 75.9 fL (80.0-94.0); MEAN CORPUSCULAR HEMOGLOBIN 22.9 pg (27.0-31.0); MEAN CORPUSCULAR HGB CONC 30.2 g/dL (33.0-37.0); MEAN PLATELET VOLUME 9.3 fL (7.2-11.7); RBC 4.22 Mil/uL (4.40-5.90); RED CELL DISTRIBUTION WIDTH 33.5 % (11.5-14.5)
--- NOTE | 2019-03-10 06:00 | CP.PCM.CON ---
History of Present Illness - History of Present Illness History of Present Illness: CC: Dyspnea, CHF Patient is a 63 year old male with PMHx CAD s/p CABG/quadruple bypass, BOPD, DM, hepatitis, HTN, HLD, seizures, CHENCHO, hep C and A fib who presented to ED 03/06 with chief complaint of chest pain/epigastric pain and shortness of breath. Patient has history COPD on 3L home O2. ICU eval for patient complaining of chest pain and rapid heart rate noted on telemetry in 160s. Patient also c/o shortness of breath but noted to be satting in high 90s on 3L NC and receiving solumedrol already for COPD exacerbation. Patient still complaining of chest tightness, though states similar to pain he was feeling when he came in. Patient state shortness of breath improving. Does state having some nausea, but without vomiting. He does state he has chest pain at home that is worse with exertion, even has had pain walking short distances recently. Patient admits to drinking 1 pint alcohol/day with last drink on thursday, and smokes 1 ppd but is intent on quitting due to recent Review of Systems - Constitutional Constitutional: absent: Chills, Fever - EENT Eyes: absent: Blurred Vision, Change in Vision - Cardiovascular Cardiovascular: Chest Pain, Chest Pain with Activity, Dyspnea. absent: Diaphoresis, Edema, Lightheadedness, Radiating Pain, Syncope - Respiratory Respiratory: absent: Cough - Gastrointestinal Gastrointestinal: absent: Abdominal Pain, Constipation, Nausea, Vomiting - Musculoskeletal Musculoskeletal: absent: Numbness, Stiffness - Neurological Neurological: absent: Dizziness, Paresthesias - Psychiatric Psychiatric: absent: Anxiety, Depression - Hematologic/Lymphatic Hematologic: absent: Easy Bleeding, Easy Bruising Physical Exam - Constitutional Appears: No Acute Distress - Head Exam Head Exam: ATRAUMATIC, NORMOCEPHALIC - Eye Exam Eye Exam: EOMI - ENT Exam ENT Exam: Mucous Membranes Moist - Respiratory Exam Respiratory Exam: Decreased Breath Sounds. absent: Rales, Rhonchi, Wheezes - Cardiovascular Exam Cardiovascular Exam: REGULAR RHYTHM, +S1, +S2 - Extremities Exam Extremities exam: Positive for: normal inspection. Negative for: pedal edema, tenderness - Neurological Exam Neurological exam: Alert, CN II-XII Intact, Oriented x3 - Psychiatric Exam Psychiatric exam: Normal Affect, Normal Mood - Skin Skin Exam: Dry, Intact Assessment & Plan - Assessment and Plan (Free Text) Assessment: 63 y/o male with hx CAD s/p CABG, COPD, CHF to ICU following SOLUTIONS DELIVERY CONSULTANT called for rapid a fib, started on cardizem drip. Cardio Chest Pain, A Fib RVR -SOLUTIONS DELIVERY CONSULTANT called for rapid A fib/chest pain --Initial trops negative --A fib RVR on monitor --Cardizem IV and nitro SL given x2 on floor with HR coming down to 110s -ICU cardiac monitoring -Cardizem ggt -Nitro ggt -Eliquis 30 mg BID CHF -Elevated pro-BNP -Monitor Is and Os Pulm COPD -Continue home meds -Duonbeds Q4 [facility] Heme Anemia -Home Feosol -Monitor H and H Acute on Chronic diastolic CHF A Fib Medical management Past Patient History - Infectious Disease Hx of Infectious Diseases: None - Past Medical History & Family History Past Medical History?: Yes - Past Social History Smoking Status: Heavy Smoker > 10 Cigarettes Daily - CARDIAC Hx Cardia Arrhythmia: Yes Hx Hypercholesterolemia: Yes Hx Hypertension: Yes - PULMONARY Hx Asthma: Yes Hx Bronchitis: Yes Hx Chronic Obstructive Pulmonary Disease (COPD): Yes Hx Emphysema: Yes Hx Pneumonia: Yes Hx Pulmonary Embolism: No Hx Sleep Apnea: Yes - NEUROLOGICAL Hx Migraine: Yes Hx Seizures: Yes (ETOH related) - HEENT Hx HEENT Problems: No - RENAL Hx Chronic Kidney Disease: No - ENDOCRINE/METABOLIC Hx Hyperthyroidism: No Hx Hypothyroidism: No - HEMATOLOGICAL/ONCOLOGICAL Hx Anemia: No Hx Human Immunodeficiency Virus (HIV): No Hx Sickle Cell Disease: No - INTEGUMENTARY Hx Dermatological Problems: No - MUSCULOSKELETAL/RHEUMATOLOGICAL Hx Arthritis: Yes Hx Falls: Yes Hx Fractures: No - GASTROINTESTINAL Hx Diverticulitis: No Hx Gastritis: Yes Hx Pancreatitis: Yes - GENITOURINARY/GYNECOLOGICAL Hx Sexually Transmitted Disorders: No - PSYCHIATRIC Hx Anxiety: Yes Hx Bipolar Disorder: Yes Hx Depression: Yes Hx Substance Use: Yes - SURGICAL HISTORY Hx Coronary Artery Bypass Graft: Yes ((quadruple bypass) 2010) Hx Coronary Stent: Yes - ANESTHESIA Hx Anesthesia: Yes Hx Anesthesia Reactions: No Hx Malignant Hyperthermia: No Meds Allergies/Adverse Reactions: Allergies Allergy/AdvReac Type Severity Reaction Status Date / Time No Known Allergies Allergy Verified 03/01/19 13:29 - Medications Medications: Current Medications Albuterol/Ipratropium (Duoneb 3 Mg/0.5 Mg (3 Ml) Ud) 3 ml INH RQ4 [facility] Last Admin: 03/10/19 03:15 Dose: 3 ml Aspirin (Ecotrin) 81 mg PO DAILY [facility] Last Admin: 03/09/19 09:29 Dose: 81 mg Cilostazol (Pletal) 100 mg PO BID [facility] Last Admin: 03/09/19 17:10 Dose: 100 mg Diltiazem HCl (Cardizem) 30 mg PO Q6H [facility] Last Admin: 03/10/19 05:03 Dose: 30 mg Enoxaparin Sodium (Lovenox) 60 mg SC Q12 [facility] Last Admin: 03/09/19 21:54 Dose: 60 mg Escitalopram Oxalate (Lexapro) 10 mg PO DAILY [facility] Last Admin: 03/09/19 09:26 Dose: 10 mg Ferric Sodium Gluconate Complex (Ferrlecit) 125 mg IVPB DAILY [facility] Stop: 03/15/19 10:01 Last Admin: 03/09/19 09:23 Dose: 125 mg Folic Acid (Folic Acid) 1 mg PO DAILY [facility] Last Admin: 03/09/19 09:25 Dose: 1 mg Gabapentin (Neurontin) 100 mg PO TID [facility] Last Admin: 03/09/19 17:11 Dose: 100 mg Guaifenesin (Mucinex La) 600 mg PO BID [facility] Last Admin: 03/09/19 17:11 Dose: 600 mg Nitroglycerin/Dextrose (Nitroglycerin 50 Mg/250 Ml D5w) 50 mg in 250 mls @ 1.5 mls/hr IV .Q24H [facility]; Protocol Last Admin: 03/09/19 19:16 Dose: Not Given Lorazepam (Ativan) 1 mg IVP Q6H PRN PRN Reason: Symptoms of alcohol withdrawl Last Admin: 03/09/19 21:53 Dose: 1 mg Losartan Potassium (Cozaar) 50 mg PO DAILY [facility] Last Admin: 03/09/19 09:26 Dose: 50 mg Methylprednisolone (Solu-Medrol) 40 mg IVP Q12H [facility] Last Admin: 03/10/19 05:03 Dose: 40 mg Multivitamins/Minerals (Therapeutic-M Tab) 1 tab PO DAILY [facility] Last Admin: 03/09/19 09:25 Dose: 1 tab Naltrexone HCl (Revia) 50 mg PO DAILY [facility] Nitroglycerin (Nitrostat Sl Tab) 0.4 mg SL Q5M PRN PRN Reason: Other Pantoprazole Sodium (Protonix Ec Tab) 40 mg PO DAILY [facility] Last Admin: 03/09/19 09:24 Dose: 40 mg Rosuvastatin Calcium (Crestor) 5 mg PO HS [facility] Last Admin: 03/09/19 21:54 Dose: 5 mg Tamsulosin HCl (Flomax) 0.4 mg PO DAILY [facility] Last Admin: 03/09/19 09:25 Dose: 0.4 mg Thiamine HCl (Vitamin B1 Tab) 100 mg PO DAILY [facility] Last Admin: 03/09/19 09:25 Dose: 100 mg Topiramate (Topamax) 50 mg PO BID [facility] Last Admin: 03/09/19 17:10 Dose: 50 mg Results - Vital Signs Recent Vital Signs: Last Vital Signs Temp 98.8 F 03/10/19 00:00 Pulse 70 03/10/19 05:00 Resp 16 03/10/19 05:00 BP 120/39 L 03/10/19 04:16 Pulse Ox 98 03/09/19 19:16 - Labs Result Diagrams: 03/10/19 05:13 03/10/19 05:13 Labs: Laboratory Results - last 24 hr 03/09/19 03/10/19 03/10/19 12:41 05:13 05:13 WBC 10.0 RBC 4.22 L Hgb 9.7 L Hct 32.0 L MCV 75.9 L MCH 22.9 L MCHC 30.2 L RDW 33.5 H Plt Count 210 MPV 9.3 APTT 90.0 H D Sodium 135 Potassium 4.2 Chloride 101 Carbon Dioxide 29 Anion Gap 10 BUN 15 Creatinine 0.8 Est GFR ( Amer) > 60 Est GFR (Non-Af Amer) > 60 Random Glucose 144 H Calcium 8.8 Phosphorus 3.8 Magnesium 2.1 Total Bilirubin 0.4 AST 27 ALT 35 Alkaline Phosphatase 64 Total Protein 5.9 L Albumin 3.2 L Globulin 2.7 Albumin/Globulin Ratio 1.2
--- NOTE | 2019-03-10 06:04 | CP.PCM.PN ---
Subjective - Date & Time of Evaluation Date of Evaluation: 03/09/19 Time of Evaluation: 16:20 - Subjective Subjective: Patient seen and evaluated Still dyspnea. But improved Review of Systems - Constitutional Constitutional: absent: Chills, Fever - EENT Eyes: absent: Blurred Vision, Change in Vision - Cardiovascular Cardiovascular: Chest Pain, Chest Pain with Activity, Dyspnea. absent: Diaphoresis, Edema, Lightheadedness, Radiating Pain, Syncope - Respiratory Respiratory: absent: Cough - Gastrointestinal Gastrointestinal: absent: Abdominal Pain, Constipation, Nausea, Vomiting - Musculoskeletal Musculoskeletal: absent: Numbness, Stiffness - Neurological Neurological: absent: Dizziness, Paresthesias - Psychiatric Psychiatric: absent: Anxiety, Depression - Hematologic/Lymphatic Hematologic: absent: Easy Bleeding, Easy Bruising Physical Exam - Constitutional Appears: No Acute Distress - Head Exam Head Exam: ATRAUMATIC, NORMOCEPHALIC - Eye Exam Eye Exam: EOMI - ENT Exam ENT Exam: Mucous Membranes Moist - Respiratory Exam Respiratory Exam: Decreased Breath Sounds. absent: Rales, Rhonchi, Wheezes - Cardiovascular Exam Cardiovascular Exam: REGULAR RHYTHM, +S1, +S2 - Extremities Exam Extremities exam: Positive for: normal inspection. 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 Cardio Chest Pain, A Fib RVR -RECRUITMENT COORDINATOR called for rapid A fib/chest pain --Initial trops negative --A fib RVR on monitor --Cardizem IV and nitro SL given x2 on floor with HR coming down to 110s -ICU cardiac monitoring -Cardizem ggt -Nitro ggt -Eliquis 30 mg BID CHF -Elevated pro-BNP -Monitor Is and Os Pulm COPD -Continue home meds -Duonbeds Q4 [facility] Heme Anemia -Home Feosol -Monitor H and H Acute on Chronic diastolic CHF A Fib Medical management Objective - Vital Signs/Intake and Output Vital Signs (last 24 hours): Temp Pulse Resp BP Pulse Ox 98.8 F 70 16 120/39 L 98 03/10/19 00:00 03/10/19 05:00 03/10/19 05:00 03/10/19 04:16 03/09/19 19:16 Intake and Output: 03/09/19 03/10/19 18:59 06:59 Intake Total 901.0 0 Output Total 2000 900 Balance -1099.0 -900 - Medications Medications: Current Medications Albuterol/Ipratropium (Duoneb 3 Mg/0.5 Mg (3 Ml) Ud) 3 ml INH RQ4 [facility] Last Admin: 03/10/19 03:15 Dose: 3 ml Aspirin (Ecotrin) 81 mg PO DAILY [facility] Last Admin: 03/09/19 09:29 Dose: 81 mg Cilostazol (Pletal) 100 mg PO BID [facility] Last Admin: 03/09/19 17:10 Dose: 100 mg Diltiazem HCl (Cardizem) 30 mg PO Q6H [facility] Last Admin: 03/10/19 05:03 Dose: 30 mg Enoxaparin Sodium (Lovenox) 60 mg SC Q12 [facility] Last Admin: 03/09/19 21:54 Dose: 60 mg Escitalopram Oxalate (Lexapro) 10 mg PO DAILY [facility] Last Admin: 03/09/19 09:26 Dose: 10 mg Ferric Sodium Gluconate Complex (Ferrlecit) 125 mg IVPB DAILY [facility] Stop: 03/15/19 10:01 Last Admin: 03/09/19 09:23 Dose: 125 mg Folic Acid (Folic Acid) 1 mg PO DAILY [facility] Last Admin: 03/09/19 09:25 Dose: 1 mg Gabapentin (Neurontin) 100 mg PO TID [facility] Last Admin: 03/09/19 17:11 Dose: 100 mg Guaifenesin (Mucinex La) 600 mg PO BID [facility] Last Admin: 03/09/19 17:11 Dose: 600 mg Nitroglycerin/Dextrose (Nitroglycerin 50 Mg/250 Ml D5w) 50 mg in 250 mls @ 1.5 mls/hr IV .Q24H [facility]; Protocol Last Admin: 03/09/19 19:16 Dose: Not Given Lorazepam (Ativan) 1 mg IVP Q6H PRN PRN Reason: Symptoms of alcohol withdrawl Last Admin: 03/09/19 21:53 Dose: 1 mg Losartan Potassium (Cozaar) 50 mg PO DAILY [facility] Last Admin: 03/09/19 09:26 Dose: 50 mg Methylprednisolone (Solu-Medrol) 40 mg IVP Q12H [facility] Last Admin: 03/10/19 05:03 Dose: 40 mg Multivitamins/Minerals (Therapeutic-M Tab) 1 tab PO DAILY [facility] Last Admin: 03/09/19 09:25 Dose: 1 tab Naltrexone HCl (Revia) 50 mg PO DAILY [facility] Nitroglycerin (Nitrostat Sl Tab) 0.4 mg SL Q5M PRN PRN Reason: Other Pantoprazole Sodium (Protonix Ec Tab) 40 mg PO DAILY [facility] Last Admin: 03/09/19 09:24 Dose: 40 mg Rosuvastatin Calcium (Crestor) 5 mg PO HS [facility] Last Admin: 03/09/19 21:54 Dose: 5 mg Tamsulosin HCl (Flomax) 0.4 mg PO DAILY [facility] Last Admin: 03/09/19 09:25 Dose: 0.4 mg Thiamine HCl (Vitamin B1 Tab) 100 mg PO DAILY [facility] Last Admin: 03/09/19 09:25 Dose: 100 mg Topiramate (Topamax) 50 mg PO BID [facility] Last Admin: 03/09/19 17:10 Dose: 50 mg - Labs Labs: 03/10/19 05:13 03/10/19 05:13 PT 12.7 SECONDS (9.7-12.2) H 03/08/19 18:16 INR 1.2 03/08/19 18:16 APTT 90.0 SECONDS (21-34) H D 03/09/19 12:41
[2019-03-10 09:16] LABS: LYMPH # 1.2 K/uL (1.0-4.3); MONO # 1.2 K/uL (0.0-0.8); NEUT # 7.6 K/uL (1.8-7.0)
--- NOTE | 2019-03-10 09:28 | PN ---
DATE: 03/10/2019 SUBJECTIVE: The patient is in ICU, on heparin drip. He has decreased cough, decreased congestion, decreased shortness of breath. No chest pain. PHYSICAL EXAMINATION: VITAL SIGNS: Blood pressure 120/39, pulse 70, respiratory rate 20, temperature 98. LUNGS: Bilateral rales. Decreased air entry. Bilateral scattered rhonchi. CARDIOVASCULAR SYSTEM: S1 and S2 regular. ABDOMEN: Soft and nontender. Bowel sounds are positive. ASSESSMENT: 1. Acute coronary syndrome, on heparin drip. 2. Exacerbation of chronic obstructive pulmonary disease, on Solu-Medrol. 3. 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 4. Hypertension. 5. Depression. PLAN: Continue current medications. Intravenous heparin. See Cardiology. We will monitor patient. Dennys Vasquez MD
[2019-03-10] MEDS: Multivitamin With Minerals Tab PO SCH (10:56)
[2019-03-10] MEDS: guaiFENesin 600 mg ER Tab PO SCH ×2 (10:56→18:56)
[2019-03-10] MEDS: Cilostazol 100 mg Tab UD PO SCH ×2 (10:57→18:57)
[2019-03-10] MEDS: Pantoprazole 40 mg EC Tab PO SCH (10:57)
[2019-03-10] MEDS: Ferric Sodium Gluconat Complex 62.5 mg/5 ml Vial IVPB SCH (10:57)
[2019-03-10] MEDS: Enoxaparin 60 mg Syringe SC SCH ×2 (10:58→21:40)
--- NOTE | 2019-03-10 11:10 | CP.PCM.PN ---
<Eva Chen - Last Filed: 03/10/19 16:27> Subjective - Date & Time of Evaluation Date of Evaluation: 03/10/19 Time of Evaluation: 11:10 - Subjective Subjective: Progress note for Dr. Moraes Patient was seen and examined at bedside in no acute distress. Patient reports still having chest discomfort, sob, and leg swelling, but denies palpitations, dizziness, vision changes, n/v, abdominal pain, leg pain. Objective - Vital Signs/Intake and Output Vital Signs (last 24 hours): Temp Pulse Resp BP Pulse Ox 98.9 F 75 13 120/39 L 98 03/10/19 08:00 03/10/19 11:00 03/10/19 11:00 03/10/19 04:16 03/09/19 19:16 Intake and Output: 03/10/19 03/10/19 06:59 18:59 Intake Total 0 0 Output Total 1900 700 Balance -1900 -700 - Medications Medications: Current Medications Albuterol/Ipratropium (Duoneb 3 Mg/0.5 Mg (3 Ml) Ud) 3 ml INH RQ4 [facility] Last Admin: 03/10/19 07:28 Dose: 3 ml Aspirin (Ecotrin) 81 mg PO DAILY [facility] Last Admin: 03/10/19 10:56 Dose: 81 mg Cilostazol (Pletal) 100 mg PO BID [facility] Last Admin: 03/10/19 10:57 Dose: 100 mg Diltiazem HCl (Cardizem) 30 mg PO Q6H [facility] Last Admin: 03/10/19 10:56 Dose: 30 mg Enoxaparin Sodium (Lovenox) 60 mg SC Q12 [facility] Last Admin: 03/10/19 10:58 Dose: 60 mg Escitalopram Oxalate (Lexapro) 10 mg PO DAILY [facility] Last Admin: 03/10/19 10:57 Dose: 10 mg Ferric Sodium Gluconate Complex (Ferrlecit) 125 mg IVPB DAILY [facility] Stop: 03/15/19 10:01 Last Admin: 03/10/19 10:57 Dose: 125 mg Folic Acid (Folic Acid) 1 mg PO DAILY [facility] Last Admin: 03/10/19 10:56 Dose: 1 mg Gabapentin (Neurontin) 100 mg PO TID [facility] Last Admin: 03/10/19 10:57 Dose: 100 mg Guaifenesin (Mucinex La) 600 mg PO BID [facility] Last Admin: 03/10/19 10:56 Dose: 600 mg Nitroglycerin/Dextrose (Nitroglycerin 50 Mg/250 Ml D5w) 50 mg in 250 mls @ 1.5 mls/hr IV .Q24H [facility]; Protocol Last Admin: 03/09/19 19:16 Dose: Not Given Lorazepam (Ativan) 1 mg IVP Q6H PRN PRN Reason: Symptoms of alcohol withdrawl Last Admin: 03/09/19 21:53 Dose: 1 mg Losartan Potassium (Cozaar) 50 mg PO DAILY [facility] Last Admin: 03/10/19 10:56 Dose: 50 mg Methylprednisolone (Solu-Medrol) 40 mg IVP Q12H [facility] Last Admin: 03/10/19 05:03 Dose: 40 mg Multivitamins/Minerals (Therapeutic-M Tab) 1 tab PO DAILY [facility] Last Admin: 03/10/19 10:56 Dose: 1 tab Naltrexone HCl (Revia) 50 mg PO DAILY [facility] Last Admin: 03/10/19 10:57 Dose: 50 mg Nitroglycerin (Nitrostat Sl Tab) 0.4 mg SL Q5M PRN PRN Reason: Other Pantoprazole Sodium (Protonix Ec Tab) 40 mg PO DAILY [facility] Last Admin: 03/10/19 10:57 Dose: 40 mg Rosuvastatin Calcium (Crestor) 5 mg PO HS [facility] Last Admin: 03/09/19 21:54 Dose: 5 mg Tamsulosin HCl (Flomax) 0.4 mg PO DAILY [facility] Last Admin: 03/10/19 10:56 Dose: 0.4 mg Thiamine HCl (Vitamin B1 Tab) 100 mg PO DAILY [facility] Last Admin: 03/10/19 10:56 Dose: 100 mg Topiramate (Topamax) 50 mg PO BID [facility] Last Admin: 03/10/19 10:57 Dose: 50 mg - Labs Labs: 03/10/19 05:13 03/10/19 05:13 PT 12.7 SECONDS (9.7-12.2) H 03/08/19 18:16 INR 1.2 03/08/19 18:16 APTT 90.0 SECONDS (21-34) H D 03/09/19 12:41 - Constitutional Appears: No Acute Distress - Head Exam Head Exam: NORMAL INSPECTION - Eye Exam Eye Exam: EOMI, Normal appearance - ENT Exam ENT Exam: Mucous Membranes Moist - Respiratory Exam Respiratory Exam: Rhonchi, Wheezes, NORMAL BREATHING PATTERN. absent: Respiratory Distress - Cardiovascular Exam Cardiovascular Exam: +S1, +S2 - GI/Abdominal Exam GI & Abdominal Exam: Soft, Normal Bowel Sounds. absent: Distended, Tenderness - Extremities Exam Extremities Exam: absent: Pedal Edema, Tenderness - Neurological Exam Neurological Exam: Alert, Awake, Oriented x3 - Psychiatric Exam Psychiatric exam: Normal Mood - Skin Skin Exam: Dry, Normal Color, Warm Assessment and Plan - Assessment and Plan (Free Text) Plan: 63 y/o male with hx CAD s/p CABG, COPD, CHF, Afib. Cardiology consulted for CHF. Acute on Chronic Diastolic CHF - Started Lasix 20mg IV BID - Monitor CMP - BNP 3040 --> 2180 - CXR at admission: worsening cardiomegaly w/development presumable pulm edema in lower lobes - Repeat CXR: improving but persistent pulmon congestion; cardiomegaly; median sternotomy wires, evidence of CABG. - Continue ASA 81mg PO daily, Losartan 50mg PO daily, Crestor 5mg PO HS Afib - Currently rate controlled - Continue Cardizem 30mg PO Q6h, nitro drip - Continue to monitor on telemetry Hx of CAD, s/p CABG - Continue Pletal 100mg PO BID, ASA 81mg PO daily, Losartan 50mg PO daily, Crestor 5mg PO HS Case discussed with Dr. Moraes, Eva Rowell, PGY2 <Rob Moraes - Last Filed: 03/11/19 21:25> Objective - Vital Signs/Intake and Output Vital Signs (last 24 hours): Temp Pulse Resp BP Pulse Ox 98.4 F 76 20 91/47 L 96 03/11/19 15:10 03/11/19 17:30 03/11/19 15:10 03/11/19 17:55 03/11/19 15:10 Intake and Output: 03/11/19 03/12/19 18:59 06:59 Intake Total 550 Output Total 1100 Balance -550 - Medications Medications: Current Medications Albuterol/Ipratropium (Duoneb 3 Mg/0.5 Mg (3 Ml) Ud) 3 ml INH RQ4 [facility] Last Admin: 03/11/19 19:40 Dose: 3 ml Aspirin (Ecotrin) 81 mg PO DAILY [facility] Last Admin: 03/11/19 10:52 Dose: 81 mg Cilostazol (Pletal) 100 mg PO BID [facility] Last Admin: 03/11/19 10:49 Dose: 100 mg Diltiazem HCl (Cardizem) 30 mg PO Q6H [facility] Last Admin: 03/11/19 16:17 Dose: 30 mg Enoxaparin Sodium (Lovenox) 60 mg SC Q12 [facility] Last Admin: 03/11/19 10:52 Dose: 60 mg Escitalopram Oxalate (Lexapro) 10 mg PO DAILY [facility] Last Admin: 03/11/19 10:50 Dose: 10 mg Ferric Sodium Gluconate Complex (Ferrlecit) 125 mg IVPB DAILY [facility] Stop: 03/15/19 10:01 Last Admin: 03/11/19 10:51 Dose: 125 mg Folic Acid (Folic Acid) 1 mg PO DAILY [facility] Last Admin: 03/11/19 10:50 Dose: 1 mg Furosemide (Lasix) 20 mg IVP BID [facility] Last Admin: 03/11/19 17:55 Dose: Not Given Gabapentin (Neurontin) 100 mg PO TID [facility] Last Admin: 03/11/19 17:57 Dose: 100 mg Guaifenesin (Mucinex La) 600 mg PO BID [facility] Last Admin: 03/11/19 17:57 Dose: 600 mg Ceftriaxone Sodium 1 gm/ (Sodium Chloride) 100 mls @ 100 mls/hr IVPB DAILY [facility]; Protocol Last Admin: 03/11/19 10:49 Dose: 100 mls/hr Azithromycin 500 mg/ Sodium (Chloride) 250 mls @ 250 mls/hr IVPB Q24H [facility]; Protocol Last Admin: 03/11/19 13:35 Dose: 250 mls/hr Lorazepam (Ativan) 1 mg IVP Q6H PRN PRN Reason: Symptoms of alcohol withdrawl Last Admin: 03/09/19 21:53 Dose: 1 mg Losartan Potassium (Cozaar) 50 mg PO DAILY [facility] Last Admin: 03/11/19 10:51 Dose: 50 mg Methylprednisolone (Solu-Medrol) 40 mg IVP Q12H [facility] Last Admin: 03/11/19 17:58 Dose: 40 mg Multivitamins/Minerals (Therapeutic-M Tab) 1 tab PO DAILY [facility] Last Admin: 03/11/19 10:51 Dose: 1 tab Naltrexone HCl (Revia) 50 mg PO DAILY [facility] Last Admin: 03/11/19 10:50 Dose: 50 mg Nitroglycerin (Nitrostat Sl Tab) 0.4 mg SL Q5M PRN PRN Reason: Other Pantoprazole Sodium (Protonix Ec Tab) 40 mg PO DAILY [facility] Last Admin: 03/11/19 10:50 Dose: 40 mg Rosuvastatin Calcium (Crestor) 5 mg PO HS [facility] Last Admin: 03/10/19 21:41 Dose: 5 mg Tamsulosin HCl (Flomax) 0.4 mg PO DAILY [facility] Last Admin: 03/11/19 10:51 Dose: 0.4 mg Thiamine HCl (Vitamin B1 Tab) 100 mg PO DAILY [facility] Last Admin: 03/11/19 10:51 Dose: 100 mg Topiramate (Topamax) 50 mg PO BID [facility] Last Admin: 03/11/19 17:58 Dose: 50 mg - Labs Labs: 03/11/19 05:47 03/11/19 06:00 PT 12.7 SECONDS (9.7-12.2) H 03/08/19 18:16 INR 1.2 03/08/19 18:16 APTT 90.0 SECONDS (21-34) H D 03/09/19 12:41 Assessment and Plan - Assessment and Plan (Free Text) Plan: Patient seen and evaluated personally by me. Plan of esthela d/w the medical bill processor and as documented
[2019-03-10] MEDS: Azithromycin 500 MG in Sodium Chloride 0.9% 250 ML IVPB SCH (13:56)
--- NOTE | 2019-03-10 18:31 | CP.PCM.PN ---
Subjective - Date & Time of Evaluation Date of Evaluation: 03/10/19 Time of Evaluation: 11:00 - Subjective Subjective: Patient seen and examined Breathing better but still complaining of cough Objective - Vital Signs/Intake and Output Vital Signs (last 24 hours): Temp Pulse Resp BP Pulse Ox 98.4 F 78 23 120/39 L 98 03/10/19 16:00 03/10/19 17:00 03/10/19 17:00 03/10/19 04:16 03/09/19 19:16 Intake and Output: 03/10/19 03/10/19 06:59 18:59 Intake Total 0 950 Output Total 1900 1800 Balance -1900 -850 - Medications Medications: Current Medications Albuterol/Ipratropium (Duoneb 3 Mg/0.5 Mg (3 Ml) Ud) 3 ml INH RQ4 [facility] Last Admin: 03/10/19 15:53 Dose: 3 ml Aspirin (Ecotrin) 81 mg PO DAILY [facility] Last Admin: 03/10/19 10:56 Dose: 81 mg Cilostazol (Pletal) 100 mg PO BID [facility] Last Admin: 03/10/19 10:57 Dose: 100 mg Diltiazem HCl (Cardizem) 30 mg PO Q6H [facility] Last Admin: 03/10/19 10:56 Dose: 30 mg Enoxaparin Sodium (Lovenox) 60 mg SC Q12 [facility] Last Admin: 03/10/19 10:58 Dose: 60 mg Escitalopram Oxalate (Lexapro) 10 mg PO DAILY [facility] Last Admin: 03/10/19 10:57 Dose: 10 mg Ferric Sodium Gluconate Complex (Ferrlecit) 125 mg IVPB DAILY [facility] Stop: 03/15/19 10:01 Last Admin: 03/10/19 10:57 Dose: 125 mg Folic Acid (Folic Acid) 1 mg PO DAILY [facility] Last Admin: 03/10/19 10:56 Dose: 1 mg Furosemide (Lasix) 20 mg IVP BID [facility] Gabapentin (Neurontin) 100 mg PO TID [facility] Last Admin: 03/10/19 13:56 Dose: 100 mg Guaifenesin (Mucinex La) 600 mg PO BID [facility] Last Admin: 03/10/19 10:56 Dose: 600 mg Ceftriaxone Sodium 1 gm/ (Sodium Chloride) 100 mls @ 100 mls/hr IVPB DAILY [facility]; Protocol Last Admin: 03/10/19 13:55 Dose: 100 mls/hr Azithromycin 500 mg/ Sodium (Chloride) 250 mls @ 250 mls/hr IVPB Q24H [facility]; Protocol Last Admin: 03/10/19 13:56 Dose: 250 mls/hr Lorazepam (Ativan) 1 mg IVP Q6H PRN PRN Reason: Symptoms of alcohol withdrawl Last Admin: 03/09/19 21:53 Dose: 1 mg Losartan Potassium (Cozaar) 50 mg PO DAILY [facility] Last Admin: 03/10/19 10:56 Dose: 50 mg Methylprednisolone (Solu-Medrol) 40 mg IVP Q12H [facility] Last Admin: 03/10/19 05:03 Dose: 40 mg Multivitamins/Minerals (Therapeutic-M Tab) 1 tab PO DAILY [facility] Last Admin: 03/10/19 10:56 Dose: 1 tab Naltrexone HCl (Revia) 50 mg PO DAILY [facility] Last Admin: 03/10/19 10:57 Dose: 50 mg Nitroglycerin (Nitrostat Sl Tab) 0.4 mg SL Q5M PRN PRN Reason: Other Pantoprazole Sodium (Protonix Ec Tab) 40 mg PO DAILY [facility] Last Admin: 03/10/19 10:57 Dose: 40 mg Rosuvastatin Calcium (Crestor) 5 mg PO HS [facility] Last Admin: 03/09/19 21:54 Dose: 5 mg Tamsulosin HCl (Flomax) 0.4 mg PO DAILY [facility] Last Admin: 03/10/19 10:56 Dose: 0.4 mg Thiamine HCl (Vitamin B1 Tab) 100 mg PO DAILY [facility] Last Admin: 03/10/19 10:56 Dose: 100 mg Topiramate (Topamax) 50 mg PO BID [facility] Last Admin: 03/10/19 10:57 Dose: 50 mg - Labs Labs: 03/10/19 05:13 03/10/19 05:13 PT 12.7 SECONDS (9.7-12.2) H 03/08/19 18:16 INR 1.2 03/08/19 18:16 APTT 90.0 SECONDS (21-34) H D 03/09/19 12:41 - Head Exam Head Exam: ATRAUMATIC, NORMOCEPHALIC - ENT Exam ENT Exam: Mucous Membranes Moist - Neck Exam Neck Exam: Normal Inspection - Respiratory Exam Respiratory Exam: Rales - Cardiovascular Exam Cardiovascular Exam: REGULAR RHYTHM - GI/Abdominal Exam GI & Abdominal Exam: Soft, Normal Bowel Sounds - Extremities Exam Extremities Exam: Full ROM, Normal Inspection Assessment and Plan (1) COPD exacerbation Assessment & Plan: Persistent cough Continue nebulizer treatment Antitussive Steroids Status: Acute (2) CHF (congestive heart failure) Status: Acute
--- NOTE | 2019-03-10 22:42 | CP.PCM.PN ---
Subjective - Date & Time of Evaluation Date of Evaluation: 03/10/19 Time of Evaluation: 08:40 - Subjective Subjective: dict Objective - Vital Signs/Intake and Output Vital Signs (last 24 hours): Temp Pulse Resp BP Pulse Ox 97.8 F 76 18 84/31 L 98 03/10/19 20:00 03/10/19 20:00 03/10/19 20:00 03/10/19 20:00 03/10/19 20:00 Intake and Output: 03/10/19 03/11/19 18:59 06:59 Intake Total 950 Output Total 1800 Balance -850 - Medications Medications: Current Medications Albuterol/Ipratropium (Duoneb 3 Mg/0.5 Mg (3 Ml) Ud) 3 ml INH RQ4 [facility] Last Admin: 03/10/19 19:35 Dose: 3 ml Aspirin (Ecotrin) 81 mg PO DAILY [facility] Last Admin: 03/10/19 10:56 Dose: 81 mg Cilostazol (Pletal) 100 mg PO BID [facility] Last Admin: 03/10/19 18:57 Dose: 100 mg Diltiazem HCl (Cardizem) 30 mg PO Q6H [facility] Last Admin: 03/10/19 21:29 Dose: Not Given Enoxaparin Sodium (Lovenox) 60 mg SC Q12 [facility] Last Admin: 03/10/19 21:40 Dose: 60 mg Escitalopram Oxalate (Lexapro) 10 mg PO DAILY [facility] Last Admin: 03/10/19 10:57 Dose: 10 mg Ferric Sodium Gluconate Complex (Ferrlecit) 125 mg IVPB DAILY [facility] Stop: 03/15/19 10:01 Last Admin: 03/10/19 10:57 Dose: 125 mg Folic Acid (Folic Acid) 1 mg PO DAILY [facility] Last Admin: 03/10/19 10:56 Dose: 1 mg Furosemide (Lasix) 20 mg IVP BID [facility] Last Admin: 03/10/19 18:55 Dose: 20 mg Gabapentin (Neurontin) 100 mg PO TID [facility] Last Admin: 03/10/19 18:56 Dose: 100 mg Guaifenesin (Mucinex La) 600 mg PO BID [facility] Last Admin: 03/10/19 18:56 Dose: 600 mg Ceftriaxone Sodium 1 gm/ (Sodium Chloride) 100 mls @ 100 mls/hr IVPB DAILY [facility]; Protocol Last Admin: 03/10/19 13:55 Dose: 100 mls/hr Azithromycin 500 mg/ Sodium (Chloride) 250 mls @ 250 mls/hr IVPB Q24H [facility]; Protocol Last Admin: 03/10/19 13:56 Dose: 250 mls/hr Lorazepam (Ativan) 1 mg IVP Q6H PRN PRN Reason: Symptoms of alcohol withdrawl Last Admin: 03/09/19 21:53 Dose: 1 mg Losartan Potassium (Cozaar) 50 mg PO DAILY [facility] Last Admin: 03/10/19 10:56 Dose: 50 mg Methylprednisolone (Solu-Medrol) 40 mg IVP Q12H [facility] Last Admin: 03/10/19 18:56 Dose: 40 mg Multivitamins/Minerals (Therapeutic-M Tab) 1 tab PO DAILY [facility] Last Admin: 03/10/19 10:56 Dose: 1 tab Naltrexone HCl (Revia) 50 mg PO DAILY [facility] Last Admin: 03/10/19 10:57 Dose: 50 mg Nitroglycerin (Nitrostat Sl Tab) 0.4 mg SL Q5M PRN PRN Reason: Other Pantoprazole Sodium (Protonix Ec Tab) 40 mg PO DAILY [facility] Last Admin: 03/10/19 10:57 Dose: 40 mg Rosuvastatin Calcium (Crestor) 5 mg PO HS [facility] Last Admin: 03/10/19 21:41 Dose: 5 mg Tamsulosin HCl (Flomax) 0.4 mg PO DAILY [facility] Last Admin: 03/10/19 10:56 Dose: 0.4 mg Thiamine HCl (Vitamin B1 Tab) 100 mg PO DAILY [facility] Last Admin: 03/10/19 10:56 Dose: 100 mg Topiramate (Topamax) 50 mg PO BID [facility] Last Admin: 03/10/19 18:55 Dose: 50 mg - Labs Labs: 03/10/19 05:13 03/10/19 05:13 PT 12.7 SECONDS (9.7-12.2) H 03/08/19 18:16 INR 1.2 03/08/19 18:16 APTT 90.0 SECONDS (21-34) H D 03/09/19 12:41
[2019-03-11] MEDS: Albuterol-Ipratrop 3 mg / 0.5 (3 ml) UD INH SCH ×8 (00:54→23:25)
--- NOTE | 2019-03-11 01:09 | PN ---
DATE: 03/10/2019 SUBJECTIVE: The patient is in ICU. The patient is afebrile. He is still coughing and wheezing. The patient has heavy sputum. It is turning more yellow, thick with generalized weakness, fever, chills. He denies any nausea, vomiting, diarrhea, . PHYSICAL EXAMINATION: VITAL SIGNS: Blood pressure is 152/60, pulse 68, respiratory rate 18, temperature 99. LUNGS: Bilateral rales and rhonchi. All over the lung barrios. CARDIOVASCULAR SYSTEM: S1, S2 plus S3 positive. ABDOMEN: Soft, nontender. Bowel sounds are positive. ASSESSMENT: 1. 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 2. Acute exacerbation of chronic obstructive pulmonary disease with new onset tracheobronchitis. 3. Congestive heart failure. 4. Anxiety and depression. PLAN: Continue ICU, heparin drip. Add antibiotics and Zithromax. Continue Solu-Medrol nebulizer. Monitor the patient. Dennys Vasquez MD
[2019-03-11 06:04] LABS: BASO % 0.1 % (0.0-2.0); LYMPH # 0.3 K/uL (1.0-4.3); LYMPH % 3.1 % (20.0-40.0); MEAN CELL VOLUME 76.6 fL (80.0-94.0); MEAN CORPUSCULAR HEMOGLOBIN 22.7 pg (27.0-31.0); MEAN CORPUSCULAR HGB CONC 29.6 g/dL (33.0-37.0); MONO # 0.7 K/uL (0.0-0.8); MONO % 7.1 % (0.0-10.0); NEUT # 9.2 K/uL (1.8-7.0); NEUT % 89.7 % (50.0-75.0); PLATELET COUNT 253 K/uL (130-400); RBC 4.39 Mil/uL (4.40-5.90); RED CELL DISTRIBUTION WIDTH 33.7 % (11.5-14.5); WHITE BLOOD COUNT 10.3 K/uL (4.8-10.8)
[2019-03-11 06:15] LABS: ALB/GLOB RATIO 1.3 (1.0-2.1); ALBUMIN 3.3 g/dL (3.5-5.0); ALT/SGPT 24 U/L (21-72); AST/SGOT 15 U/L (17-59); BLOOD UREA NITROGEN 17 mg/dL (9-20); CALCIUM 8.7 mg/dl (8.6-10.4); GFR NON-AFRICAN AMERICAN > 60
--- NOTE | 2019-03-11 08:15 | CP.PCM.PN ---
<Eva Chen - Last Filed: 03/11/19 09:42> Subjective - Date & Time of Evaluation Date of Evaluation: 03/11/19 Time of Evaluation: 08:14 - Subjective Subjective: Progress note for Dr. Moraes Patient was seen and examined at bedside in no acute distress. Patient reports he is feeling better than yesterday and no longer complains of chest pain. He states he is wheezing. Patient denies palpitations, sob, cough, nausea, vomit ing, abdominal pain, fevers, headaches, dizziness, leg pain, and leg swelling. Objective - Vital Signs/Intake and Output Vital Signs (last 24 hours): Temp Pulse Resp BP Pulse Ox 98.7 F 77 20 139/60 98 03/11/19 06:00 03/11/19 06:00 03/11/19 06:00 03/11/19 06:00 03/11/19 06:00 Intake and Output: 03/11/19 03/11/19 06:59 18:59 Intake Total 300 Output Total 1200 Balance -900 - Medications Medications: Current Medications Albuterol/Ipratropium (Duoneb 3 Mg/0.5 Mg (3 Ml) Ud) 3 ml INH RQ4 [facility] Last Admin: 03/11/19 07:35 Dose: 3 ml Aspirin (Ecotrin) 81 mg PO DAILY [facility] Last Admin: 03/10/19 10:56 Dose: 81 mg Cilostazol (Pletal) 100 mg PO BID [facility] Last Admin: 03/10/19 18:57 Dose: 100 mg Diltiazem HCl (Cardizem) 30 mg PO Q6H [facility] Last Admin: 03/11/19 05:23 Dose: 30 mg Enoxaparin Sodium (Lovenox) 60 mg SC Q12 [facility] Last Admin: 03/10/19 21:40 Dose: 60 mg Escitalopram Oxalate (Lexapro) 10 mg PO DAILY [facility] Last Admin: 03/10/19 10:57 Dose: 10 mg Ferric Sodium Gluconate Complex (Ferrlecit) 125 mg IVPB DAILY [facility] Stop: 03/15/19 10:01 Last Admin: 03/10/19 10:57 Dose: 125 mg Folic Acid (Folic Acid) 1 mg PO DAILY [facility] Last Admin: 03/10/19 10:56 Dose: 1 mg Furosemide (Lasix) 20 mg IVP BID [facility] Last Admin: 03/10/19 18:55 Dose: 20 mg Gabapentin (Neurontin) 100 mg PO TID [facility] Last Admin: 03/10/19 18:56 Dose: 100 mg Guaifenesin (Mucinex La) 600 mg PO BID [facility] Last Admin: 03/10/19 18:56 Dose: 600 mg Ceftriaxone Sodium 1 gm/ (Sodium Chloride) 100 mls @ 100 mls/hr IVPB DAILY [facility]; Protocol Last Admin: 03/10/19 13:55 Dose: 100 mls/hr Azithromycin 500 mg/ Sodium (Chloride) 250 mls @ 250 mls/hr IVPB Q24H [facility]; Protocol Last Admin: 03/10/19 13:56 Dose: 250 mls/hr Lorazepam (Ativan) 1 mg IVP Q6H PRN PRN Reason: Symptoms of alcohol withdrawl Last Admin: 03/09/19 21:53 Dose: 1 mg Losartan Potassium (Cozaar) 50 mg PO DAILY [facility] Last Admin: 03/10/19 10:56 Dose: 50 mg Methylprednisolone (Solu-Medrol) 40 mg IVP Q12H [facility] Last Admin: 03/10/19 18:56 Dose: 40 mg Multivitamins/Minerals (Therapeutic-M Tab) 1 tab PO DAILY [facility] Last Admin: 03/10/19 10:56 Dose: 1 tab Naltrexone HCl (Revia) 50 mg PO DAILY [facility] Last Admin: 03/10/19 10:57 Dose: 50 mg Nitroglycerin (Nitrostat Sl Tab) 0.4 mg SL Q5M PRN PRN Reason: Other Pantoprazole Sodium (Protonix Ec Tab) 40 mg PO DAILY [facility] Last Admin: 03/10/19 10:57 Dose: 40 mg Rosuvastatin Calcium (Crestor) 5 mg PO HS [facility] Last Admin: 03/10/19 21:41 Dose: 5 mg Tamsulosin HCl (Flomax) 0.4 mg PO DAILY [facility] Last Admin: 03/10/19 10:56 Dose: 0.4 mg Thiamine HCl (Vitamin B1 Tab) 100 mg PO DAILY [facility] Last Admin: 03/10/19 10:56 Dose: 100 mg Topiramate (Topamax) 50 mg PO BID [facility] Last Admin: 03/10/19 18:55 Dose: 50 mg - Labs Labs: 03/11/19 05:47 03/11/19 06:00 PT 12.7 SECONDS (9.7-12.2) H 03/08/19 18:16 INR 1.2 03/08/19 18:16 APTT 90.0 SECONDS (21-34) H D 03/09/19 12:41 - Additional Findings Additional findings: - Constitutional Appears: No Acute Distress - Head Exam Head Exam: NORMAL INSPECTION - Eye Exam Eye Exam: EOMI, Normal appearance - ENT Exam ENT Exam: Mucous Membranes Moist - Respiratory Exam Respiratory Exam: NORMAL BREATHING PATTERN. absent: Respiratory Distress, Rhonchi, Wheezes when auscultated - Cardiovascular Exam Cardiovascular Exam: +S1, +S2, + murmur - GI/Abdominal Exam GI & Abdominal Exam: Soft, Normal Bowel Sounds. absent: Distended, Tenderness - Extremities Exam Extremities Exam: absent: Pedal Edema, Tenderness - Neurological Exam Neurological Exam: Alert, Awake, Oriented x3 - Psychiatric Exam Psychiatric exam: Normal Mood - Skin Skin Exam: Dry, Normal Color, Warm Assessment and Plan - Assessment and Plan (Free Text) Plan: 63 y/o male with hx CAD s/p CABG, COPD, CHF, Afib. Cardiology consulted for CHF. Acute on Chronic Diastolic CHF - Continue Lasix 20mg IV BID - Monitor CMP - BNP 3040 --> 2180 - CXR at admission: worsening cardiomegaly w/development presumable pulm edema in lower lobes - Repeat CXR: improving but persistent pulmon congestion; cardiomegaly; median sternotomy wires, evidence of CABG. - Continue ASA 81mg PO daily, Losartan 50mg PO daily, Crestor 5mg PO HS Afib - Currently rate controlled - Continue Cardizem 30mg PO Q6h - Continue to monitor on telemetry Hx of CAD, s/p CABG - Continue Pletal 100mg PO BID, ASA 81mg PO daily, Losartan 50mg PO daily, Crestor 5mg PO HS Case discussed with Eva Orosco, PGY2 <Rob Moraes - Last Filed: 03/11/19 21:25> Objective - Vital Signs/Intake and Output Vital Signs (last 24 hours): Temp Pulse Resp BP Pulse Ox 98.4 F 76 20 91/47 L 96 03/11/19 15:10 03/11/19 17:30 03/11/19 15:10 03/11/19 17:55 03/11/19 15:10 Intake and Output: 03/11/19 03/12/19 18:59 06:59 Intake Total 550 Output Total 1100 Balance -550 - Medications Medications: Current Medications Albuterol/Ipratropium (Duoneb 3 Mg/0.5 Mg (3 Ml) Ud) 3 ml INH RQ4 [facility] Last Admin: 03/11/19 19:40 Dose: 3 ml Aspirin (Ecotrin) 81 mg PO DAILY [facility] Last Admin: 03/11/19 10:52 Dose: 81 mg Cilostazol (Pletal) 100 mg PO BID [facility] Last Admin: 03/11/19 10:49 Dose: 100 mg Diltiazem HCl (Cardizem) 30 mg PO Q6H [facility] Last Admin: 03/11/19 16:17 Dose: 30 mg Enoxaparin Sodium (Lovenox) 60 mg SC Q12 [facility] Last Admin: 03/11/19 10:52 Dose: 60 mg Escitalopram Oxalate (Lexapro) 10 mg PO DAILY [facility] Last Admin: 03/11/19 10:50 Dose: 10 mg Ferric Sodium Gluconate Complex (Ferrlecit) 125 mg IVPB DAILY [facility] Stop: 03/15/19 10:01 Last Admin: 03/11/19 10:51 Dose: 125 mg Folic Acid (Folic Acid) 1 mg PO DAILY [facility] Last Admin: 03/11/19 10:50 Dose: 1 mg Furosemide (Lasix) 20 mg IVP BID [facility] Last Admin: 03/11/19 17:55 Dose: Not Given Gabapentin (Neurontin) 100 mg PO TID [facility] Last Admin: 03/11/19 17:57 Dose: 100 mg Guaifenesin (Mucinex La) 600 mg PO BID [facility] Last Admin: 03/11/19 17:57 Dose: 600 mg Ceftriaxone Sodium 1 gm/ (Sodium Chloride) 100 mls @ 100 mls/hr IVPB DAILY [facility]; Protocol Last Admin: 03/11/19 10:49 Dose: 100 mls/hr Azithromycin 500 mg/ Sodium (Chloride) 250 mls @ 250 mls/hr IVPB Q24H [facility]; Protocol Last Admin: 03/11/19 13:35 Dose: 250 mls/hr Lorazepam (Ativan) 1 mg IVP Q6H PRN PRN Reason: Symptoms of alcohol withdrawl Last Admin: 03/09/19 21:53 Dose: 1 mg Losartan Potassium (Cozaar) 50 mg PO DAILY [facility] Last Admin: 03/11/19 10:51 Dose: 50 mg Methylprednisolone (Solu-Medrol) 40 mg IVP Q12H [facility] Last Admin: 03/11/19 17:58 Dose: 40 mg Multivitamins/Minerals (Therapeutic-M Tab) 1 tab PO DAILY [facility] Last Admin: 03/11/19 10:51 Dose: 1 tab Naltrexone HCl (Revia) 50 mg PO DAILY [facility] Last Admin: 03/11/19 10:50 Dose: 50 mg Nitroglycerin (Nitrostat Sl Tab) 0.4 mg SL Q5M PRN PRN Reason: Other Pantoprazole Sodium (Protonix Ec Tab) 40 mg PO DAILY [facility] Last Admin: 03/11/19 10:50 Dose: 40 mg Rosuvastatin Calcium (Crestor) 5 mg PO HS [facility] Last Admin: 03/10/19 21:41 Dose: 5 mg Tamsulosin HCl (Flomax) 0.4 mg PO DAILY [facility] Last Admin: 03/11/19 10:51 Dose: 0.4 mg Thiamine HCl (Vitamin B1 Tab) 100 mg PO DAILY [facility] Last Admin: 03/11/19 10:51 Dose: 100 mg Topiramate (Topamax) 50 mg PO BID [facility] Last Admin: 03/11/19 17:58 Dose: 50 mg - Labs Labs: 03/11/19 05:47 03/11/19 06:00 PT 12.7 SECONDS (9.7-12.2) H 03/08/19 18:16 INR 1.2 03/08/19 18:16 APTT 90.0 SECONDS (21-34) H D 03/09/19 12:41 Assessment and Plan - Assessment and Plan (Free Text) Plan: Patient seen and evaluated personally by me. Plan of esthela d/w the medical officer psychiatry and as documented
[2019-03-11 09:41] LABS: ANISOCYTOSIS SLIGHT; BANDS 2 % (0-2); HYPOCHROMIC SLIGHT; LYMPHOCYTE 3 % (20-40); MONOCYTE 5 % (0-10); NEUTROPHIL 90 % (50-75); OVALOCYTES SLIGHT; PLATELET ESTIMATE NORMAL (NORMAL); POIKILOCYTOSIS SLIGHT; TOTAL CELLS COUNTED 100
[2019-03-11] MEDS: Cilostazol 100 mg Tab UD PO SCH ×2 (10:49→21:59)
[2019-03-11] MEDS: guaiFENesin 600 mg ER Tab PO SCH ×2 (10:50→17:57)
[2019-03-11] MEDS: Pantoprazole 40 mg EC Tab PO SCH (10:50)
[2019-03-11] MEDS: Multivitamin With Minerals Tab PO SCH (10:51)
[2019-03-11] MEDS: Ferric Sodium Gluconat Complex 62.5 mg/5 ml Vial IVPB SCH (10:51)
[2019-03-11] MEDS: Enoxaparin 60 mg Syringe SC SCH ×2 (10:52→21:59)
[2019-03-11 13:11] VITALS: RESP 20
[2019-03-11] MEDS: Azithromycin 500 MG in Sodium Chloride 0.9% 250 ML IVPB SCH (13:35)
[2019-03-11] MEDS: MethylPREDNISolone 40 mg Vial IVP SCH (17:58)
--- NOTE | 2019-03-11 23:02 | CP.PCM.PN ---
Subjective - Date & Time of Evaluation Date of Evaluation: 03/11/19 Time of Evaluation: 17:20 - Subjective Subjective: dict Objective - Vital Signs/Intake and Output Vital Signs (last 24 hours): Temp Pulse Resp BP Pulse Ox 98.4 F 87 20 113/61 96 03/11/19 15:10 03/11/19 21:30 03/11/19 21:30 03/11/19 21:30 03/11/19 15:10 Intake and Output: 03/11/19 03/12/19 18:59 06:59 Intake Total 550 Output Total 1100 Balance -550 - Medications Medications: Current Medications Albuterol/Ipratropium (Duoneb 3 Mg/0.5 Mg (3 Ml) Ud) 3 ml INH RQ4 [facility] Last Admin: 03/11/19 19:40 Dose: 3 ml Aspirin (Ecotrin) 81 mg PO DAILY [facility] Last Admin: 03/11/19 10:52 Dose: 81 mg Cilostazol (Pletal) 100 mg PO BID [facility] Last Admin: 03/11/19 21:59 Dose: 100 mg Diltiazem HCl (Cardizem) 30 mg PO Q6H [facility] Last Admin: 03/11/19 21:58 Dose: 30 mg Escitalopram Oxalate (Lexapro) 10 mg PO DAILY [facility] Last Admin: 03/11/19 10:50 Dose: 10 mg Folic Acid (Folic Acid) 1 mg PO DAILY [facility] Last Admin: 03/11/19 10:50 Dose: 1 mg Gabapentin (Neurontin) 100 mg PO TID [facility] Last Admin: 03/11/19 17:57 Dose: 100 mg Guaifenesin (Mucinex La) 600 mg PO BID [facility] Last Admin: 03/11/19 17:57 Dose: 600 mg Ceftriaxone Sodium 1 gm/ (Sodium Chloride) 100 mls @ 100 mls/hr IVPB DAILY [facility]; Protocol Last Admin: 03/11/19 10:49 Dose: 100 mls/hr Azithromycin 500 mg/ Sodium (Chloride) 250 mls @ 250 mls/hr IVPB Q24H [facility]; Protocol Last Admin: 03/11/19 13:35 Dose: 250 mls/hr Lorazepam (Ativan) 1 mg IVP Q6H PRN PRN Reason: Symptoms of alcohol withdrawl Last Admin: 03/09/19 21:53 Dose: 1 mg Methylprednisolone (Solu-Medrol) 40 mg IVP Q12H [facility] Last Admin: 03/11/19 17:58 Dose: 40 mg Multivitamins/Minerals (Therapeutic-M Tab) 1 tab PO DAILY [facility] Last Admin: 03/11/19 10:51 Dose: 1 tab Naltrexone HCl (Revia) 50 mg PO DAILY [facility] Last Admin: 03/11/19 10:50 Dose: 50 mg Nitroglycerin (Nitrostat Sl Tab) 0.4 mg SL Q5M PRN PRN Reason: Other Pantoprazole Sodium (Protonix Ec Tab) 40 mg PO DAILY [facility] Last Admin: 03/11/19 10:50 Dose: 40 mg Rosuvastatin Calcium (Crestor) 5 mg PO HS [facility] Last Admin: 03/11/19 21:59 Dose: 5 mg Tamsulosin HCl (Flomax) 0.4 mg PO DAILY [facility] Last Admin: 03/11/19 10:51 Dose: 0.4 mg Thiamine HCl (Vitamin B1 Tab) 100 mg PO DAILY [facility] Last Admin: 03/11/19 10:51 Dose: 100 mg Topiramate (Topamax) 50 mg PO BID [facility] Last Admin: 03/11/19 17:58 Dose: 50 mg - Labs Labs: 03/11/19 05:47 03/11/19 06:00 PT 12.7 SECONDS (9.7-12.2) H 03/08/19 18:16 INR 1.2 03/08/19 18:16 APTT 90.0 SECONDS (21-34) H D 03/09/19 12:41
--- NOTE | 2019-03-12 02:20 | PN ---
DATE: 03/12/2019 SUBJECTIVE: The patient is still coughing, wheezing. He is out of ICU. The patient is on Cardizem. No fever. No chills. No nausea or vomiting. His sputum is thick yellow. He is on antibiotics since yesterday. PHYSICAL EXAMINATION: VITAL SIGNS: Blood pressure 91/47, pulse 76, respiratory rate 20, temperature 98.4. LUNGS: Bilateral inspiratory and expiratory rales and rhonchi. Decreased air entry. CARDIOVASCULAR SYSTEM: PMI not localized. S1 and S2 regular. ABDOMEN: Soft, nontender. Bowel sounds are positive. ASSESSMENT: 1. Acute exacerbation of chronic obstructive pulmonary disease. 2. Tracheobronchitis, rule out pneumonia. 3. Alcohol-induced anemia. 4. Alcoholism. PLAN: Continue Solu-Medrol. Pulmonary followup. Monitor the patient. Dennys Vasquez MD
[2019-03-12] MEDS: Albuterol-Ipratrop 3 mg / 0.5 (3 ml) UD INH SCH ×5 (03:34→19:39)
[2019-03-12] MEDS: MethylPREDNISolone 40 mg Vial IVP SCH ×2 (05:30→17:11)
[2019-03-12 08:24] LABS: BASO % 0.2 % (0.0-2.0); HEMOGLOBIN 10.3 g/dL (12.0-18.0); LYMPH # 0.3 K/uL (1.0-4.3); LYMPH % 3.8 % (20.0-40.0); MEAN CORPUSCULAR HEMOGLOBIN 23.7 pg (27.0-31.0); MEAN CORPUSCULAR HGB CONC 30.8 g/dL (33.0-37.0); MONO # 0.6 K/uL (0.0-0.8); MONO % 8.5 % (0.0-10.0); NEUT # 6.6 K/uL (1.8-7.0); NEUT % 87.5 % (50.0-75.0); NRBC % 0.1 % (0.0-2.0); PLATELET COUNT 278 K/uL (130-400); RBC 4.35 Mil/uL (4.40-5.90); RED CELL DISTRIBUTION WIDTH 34.6 % (11.5-14.5); WHITE BLOOD COUNT 7.5 K/uL (4.8-10.8)
[2019-03-12 08:37] LABS: ALB/GLOB RATIO 1.2 (1.0-2.1); ALBUMIN 3.1 g/dL (3.5-5.0); ALT/SGPT 29 U/L (21-72); AST/SGOT 20 U/L (17-59); BLOOD UREA NITROGEN 18 mg/dL (9-20); CALCIUM 8.7 mg/dl (8.6-10.4); GFR NON-AFRICAN AMERICAN > 60
--- NOTE | 2019-03-12 08:54 | CP.PCM.PN ---
Subjective - Date & Time of Evaluation Date of Evaluation: 03/12/19 Time of Evaluation: 08:40 - Subjective Subjective: Patient seen and examined Sitting comfortably in no distress Slight cough productive of clear phlegm No chest pain Afebrile Objective - Vital Signs/Intake and Output Vital Signs (last 24 hours): Temp Pulse Resp BP Pulse Ox 98.4 F 73 20 109/58 L 95 03/12/19 07:15 03/12/19 07:15 03/12/19 07:15 03/12/19 07:15 03/12/19 07:15 - Medications Medications: Current Medications Albuterol/Ipratropium (Duoneb 3 Mg/0.5 Mg (3 Ml) Ud) 3 ml INH RQ4 [facility] Last Admin: 03/12/19 03:34 Dose: Not Given Aspirin (Ecotrin) 81 mg PO DAILY [facility] Last Admin: 03/11/19 10:52 Dose: 81 mg Cilostazol (Pletal) 100 mg PO BID [facility] Last Admin: 03/11/19 21:59 Dose: 100 mg Diltiazem HCl (Cardizem) 30 mg PO Q6H [facility] Last Admin: 03/12/19 04:45 Dose: 30 mg Escitalopram Oxalate (Lexapro) 10 mg PO DAILY [facility] Last Admin: 03/11/19 10:50 Dose: 10 mg Folic Acid (Folic Acid) 1 mg PO DAILY [facility] Last Admin: 03/11/19 10:50 Dose: 1 mg Gabapentin (Neurontin) 100 mg PO TID [facility] Last Admin: 03/11/19 17:57 Dose: 100 mg Guaifenesin (Mucinex La) 600 mg PO BID [facility] Last Admin: 03/11/19 17:57 Dose: 600 mg Ceftriaxone Sodium 1 gm/ (Sodium Chloride) 100 mls @ 100 mls/hr IVPB DAILY [facility]; Protocol Last Admin: 03/11/19 10:49 Dose: 100 mls/hr Azithromycin 500 mg/ Sodium (Chloride) 250 mls @ 250 mls/hr IVPB Q24H [facility]; Protocol Last Admin: 03/11/19 13:35 Dose: 250 mls/hr Lorazepam (Ativan) 1 mg IVP Q6H PRN PRN Reason: Symptoms of alcohol withdrawl Last Admin: 03/09/19 21:53 Dose: 1 mg Methylprednisolone (Solu-Medrol) 40 mg IVP Q12H [facility] Last Admin: 03/12/19 05:30 Dose: 40 mg Multivitamins/Minerals (Therapeutic-M Tab) 1 tab PO DAILY [facility] Last Admin: 03/11/19 10:51 Dose: 1 tab Naltrexone HCl (Revia) 50 mg PO DAILY [facility] Last Admin: 03/11/19 10:50 Dose: 50 mg Nitroglycerin (Nitrostat Sl Tab) 0.4 mg SL Q5M PRN PRN Reason: Other Pantoprazole Sodium (Protonix Ec Tab) 40 mg PO DAILY [facility] Last Admin: 03/11/19 10:50 Dose: 40 mg Rosuvastatin Calcium (Crestor) 5 mg PO HS [facility] Last Admin: 03/11/19 21:59 Dose: 5 mg Tamsulosin HCl (Flomax) 0.4 mg PO DAILY [facility] Last Admin: 03/11/19 10:51 Dose: 0.4 mg Thiamine HCl (Vitamin B1 Tab) 100 mg PO DAILY [facility] Last Admin: 03/11/19 10:51 Dose: 100 mg Topiramate (Topamax) 50 mg PO BID [facility] Last Admin: 03/11/19 17:58 Dose: 50 mg - Labs Labs: 03/12/19 08:00 03/12/19 08:00 PT 12.7 SECONDS (9.7-12.2) H 03/08/19 18:16 INR 1.2 03/08/19 18:16 APTT 90.0 SECONDS (21-34) H D 03/09/19 12:41 - Head Exam Head Exam: ATRAUMATIC, NORMOCEPHALIC - ENT Exam ENT Exam: Mucous Membranes Moist - Neck Exam Neck Exam: Normal Inspection - Respiratory Exam Respiratory Exam: Decreased Breath Sounds - Cardiovascular Exam Cardiovascular Exam: REGULAR RHYTHM - GI/Abdominal Exam GI & Abdominal Exam: Soft, Normal Bowel Sounds Assessment and Plan (1) COPD exacerbation Assessment & Plan: Continue nebulizer treatment Continue steroids Diuretics Antibiotics Status: Acute (2) CHF (congestive heart failure) Status: Acute
[2019-03-12] MEDS: Cilostazol 100 mg Tab UD PO SCH ×2 (09:51→17:10)
[2019-03-12] MEDS: Pantoprazole 40 mg EC Tab PO SCH (09:51)
[2019-03-12] MEDS: guaiFENesin 600 mg ER Tab PO SCH ×2 (09:51→17:11)
[2019-03-12] MEDS: Multivitamin With Minerals Tab PO SCH (09:51)
[2019-03-12 11:18] LABS: NEUTROPHIL 91 % (50-75); TOTAL CELLS COUNTED 100
[2019-03-12 11:19] LABS: LYMPHOCYTE 3 % (20-40); MONOCYTE 6 % (0-10); PLATELET ESTIMATE NORMAL (NORMAL)
[2019-03-12 11:21] LABS: ANISOCYTOSIS MARKED; POIKILOCYTOSIS SLIGHT
[2019-03-12 11:22] LABS: MICROCYTOSIS SLIGHT
[2019-03-12 11:23] LABS: HYPOCHROMIC SLIGHT
[2019-03-12 11:24] LABS: OVALOCYTES SLIGHT; POLYCHROMIC SLIGHT; SCHISTOCYTES SLIGHT; SPHEROCYTES SLIGHT
[2019-03-12 11:25] LABS: TEARDROP CELLS SLIGHT
[2019-03-12] MEDS: Azithromycin 500 MG in Sodium Chloride 0.9% 250 ML IVPB SCH (13:23)
--- NOTE | 2019-03-12 20:31 | CP.PCM.PN ---
Subjective - Date & Time of Evaluation Date of Evaluation: 03/12/19 Time of Evaluation: 08:00 - Subjective Subjective: dict Objective - Vital Signs/Intake and Output Vital Signs (last 24 hours): Temp Pulse Resp BP Pulse Ox 99 F 80 20 146/67 97 03/12/19 15:00 03/12/19 15:10 03/12/19 15:00 03/12/19 15:00 03/12/19 15:00 - Medications Medications: Current Medications Albuterol/Ipratropium (Duoneb 3 Mg/0.5 Mg (3 Ml) Ud) 3 ml INH RQ4 [facility] Last Admin: 03/12/19 16:10 Dose: 3 ml Aspirin (Ecotrin) 81 mg PO DAILY [facility] Last Admin: 03/12/19 09:52 Dose: 81 mg Cilostazol (Pletal) 100 mg PO BID [facility] Last Admin: 03/12/19 17:10 Dose: 100 mg Diltiazem HCl (Cardizem) 30 mg PO Q6H [facility] Last Admin: 03/12/19 16:11 Dose: 30 mg Escitalopram Oxalate (Lexapro) 10 mg PO DAILY [facility] Last Admin: 03/12/19 09:51 Dose: 10 mg Folic Acid (Folic Acid) 1 mg PO DAILY [facility] Last Admin: 03/12/19 09:51 Dose: 1 mg Gabapentin (Neurontin) 100 mg PO TID [facility] Last Admin: 03/12/19 17:10 Dose: 100 mg Guaifenesin (Mucinex La) 600 mg PO BID [facility] Last Admin: 03/12/19 17:11 Dose: 600 mg Ceftriaxone Sodium 1 gm/ (Sodium Chloride) 100 mls @ 100 mls/hr IVPB DAILY [facility]; Protocol Last Admin: 03/12/19 09:56 Dose: 100 mls/hr Azithromycin 500 mg/ Sodium (Chloride) 250 mls @ 250 mls/hr IVPB Q24H [facility]; Protocol Last Admin: 03/12/19 13:23 Dose: 250 mls/hr Lorazepam (Ativan) 1 mg IVP Q6H PRN PRN Reason: Symptoms of alcohol withdrawl Last Admin: 03/09/19 21:53 Dose: 1 mg Methylprednisolone (Solu-Medrol) 40 mg IVP Q12H [facility] Last Admin: 03/12/19 17:11 Dose: 40 mg Multivitamins/Minerals (Therapeutic-M Tab) 1 tab PO DAILY [facility] Last Admin: 03/12/19 09:51 Dose: 1 tab Naltrexone HCl (Revia) 50 mg PO DAILY [facility] Last Admin: 03/12/19 09:51 Dose: 50 mg Nitroglycerin (Nitrostat Sl Tab) 0.4 mg SL Q5M PRN PRN Reason: Other Pantoprazole Sodium (Protonix Ec Tab) 40 mg PO DAILY [facility] Last Admin: 03/12/19 09:51 Dose: 40 mg Rosuvastatin Calcium (Crestor) 5 mg PO HS [facility] Last Admin: 03/11/19 21:59 Dose: 5 mg Tamsulosin HCl (Flomax) 0.4 mg PO DAILY [facility] Last Admin: 03/12/19 09:52 Dose: 0.4 mg Thiamine HCl (Vitamin B1 Tab) 100 mg PO DAILY [facility] Last Admin: 03/12/19 09:52 Dose: 100 mg Topiramate (Topamax) 50 mg PO BID [facility] Last Admin: 03/12/19 17:11 Dose: 50 mg - Labs Labs: 03/12/19 08:00 03/12/19 08:00 PT 12.7 SECONDS (9.7-12.2) H 03/08/19 18:16 INR 1.2 03/08/19 18:16 APTT 90.0 SECONDS (21-34) H D 03/09/19 12:41
--- NOTE | 2019-03-13 00:26 | PN ---
DATE: 03/12/2019 SUBJECTIVE: The patient is coughing and wheezing. He is denying any chest pain. He does get congested in the chest. He is afebrile. He is weak. PHYSICAL EXAMINATION: VITAL SIGNS: Blood pressure 146/67, pulse 77, respiratory rate 20, temperature 99. LUNGS: Bilateral inspiratory and expiratory rhonchi. Decreased air entry. CARDIOVASCULAR SYSTEM: PMI in fifth intercostal space. S1 and S2. Regular. ABDOMEN: Soft, nontender. Bowel sounds are positive. ASSESSMENT: 1. Acute exacerbation of chronic obstructive pulmonary disease. 2. Tracheobronchitis, rule out pneumonia. 3. Hypertension. 4. Alcohol abuse. PLAN: Antibiotics. Rocephin, Zithromax, Solu-Medrol, oxygen nebulizer, expectorant. Monitor the patient. Dennys Vasquez MD
[2019-03-13] MEDS: Albuterol-Ipratrop 3 mg / 0.5 (3 ml) UD INH SCH ×6 (00:57→19:56)
[2019-03-13] MEDS: MethylPREDNISolone 40 mg Vial IVP SCH ×2 (05:09→17:52)
[2019-03-13 09:02] LABS: MONO # 0.6 K/uL (0.0-0.8); NEUT # 7.9 K/uL (1.8-7.0); WHITE BLOOD COUNT 8.8 K/uL (4.8-10.8)
[2019-03-13 09:15] LABS: ALB/GLOB RATIO 1.3 (1.0-2.1); ALBUMIN 3.4 g/dL (3.5-5.0); ALT/SGPT 32 U/L (21-72); AST/SGOT 27 U/L (17-59); BLOOD UREA NITROGEN 24 mg/dL (9-20); CALCIUM 9.2 mg/dl (8.6-10.4); GFR NON-AFRICAN AMERICAN > 60
[2019-03-13 09:26] LABS: BASO % 0.2 % (0.0-2.0); HEMOGLOBIN 10.8 g/dL (12.0-18.0); LYMPH # 0.3 K/uL (1.0-4.3); LYMPH % 3.2 % (20.0-40.0); MEAN CELL VOLUME 77.4 fL (80.0-94.0); MEAN CORPUSCULAR HEMOGLOBIN 23.4 pg (27.0-31.0); MEAN CORPUSCULAR HGB CONC 30.2 g/dL (33.0-37.0); MEAN PLATELET VOLUME 9.4 fL (7.2-11.7); MONO % 6.3 % (0.0-10.0); NEUT % 90.3 % (50.0-75.0); NRBC % 0.1 % (0.0-2.0); PLATELET COUNT 305 K/uL (130-400); RBC 4.64 Mil/uL (4.40-5.90); RED CELL DISTRIBUTION WIDTH 34.8 % (11.5-14.5)
--- NOTE | 2019-03-13 09:27 | CP.PCM.PN ---
Subjective - Date & Time of Evaluation Date of Evaluation: 03/12/19 Time of Evaluation: 15:20 - Subjective Subjective: Patient was seen and examined Feels chest pain and dyspnea getting better Physical examination - Additional Findings Additional findings: - Constitutional Appears: No Acute Distress - Head Exam Head Exam: NORMAL INSPECTION - Eye Exam Eye Exam: EOMI, Normal appearance - ENT Exam ENT Exam: Mucous Membranes Moist - Respiratory Exam Respiratory Exam: NORMAL BREATHING PATTERN. absent: Respiratory Distress, Rhonchi, Wheezes when auscultated - Cardiovascular Exam Cardiovascular Exam: +S1, +S2, + murmur - GI/Abdominal Exam GI & Abdominal Exam: Soft, Normal Bowel Sounds. absent: Distended, Tenderness - Extremities Exam Extremities Exam: absent: Pedal Edema, Tenderness - Neurological Exam Neurological Exam: Alert, Awake, Oriented x3 - Psychiatric Exam Psychiatric exam: Normal Mood - Skin Skin Exam: Dry, Normal Color, Warm Assessment and Plan - Assessment and Plan (Free Text) Plan: 63 y/o male with hx CAD s/p CABG, COPD, CHF, Afib. Cardiology consulted for CHF. Acute on Chronic Diastolic CHF - Continue Lasix 20mg IV BID - Monitor CMP - BNP 3040 --> 2180 - CXR at admission: worsening cardiomegaly w/development presumable pulm edema in lower lobes - Repeat CXR: improving but persistent pulmon congestion; cardiomegaly; median sternotomy wires, evidence of CABG. - Continue ASA 81mg PO daily, Losartan 50mg PO daily, Crestor 5mg PO HS Afib - Currently rate controlled - Continue Cardizem 30mg PO Q6h - Continue to monitor on telemetry Hx of CAD, s/p CABG - Continue Pletal 100mg PO BID, ASA 81mg PO daily, Losartan 50mg PO daily, Crestor 5mg PO HS Objective - Vital Signs/Intake and Output Vital Signs (last 24 hours): Temp Pulse Resp BP Pulse Ox 97.9 F 68 20 144/71 100 03/13/19 07:15 03/13/19 08:00 03/13/19 07:15 03/13/19 07:15 03/13/19 07:15 - Medications Medications: Current Medications Albuterol/Ipratropium (Duoneb 3 Mg/0.5 Mg (3 Ml) Ud) 3 ml INH RQ4 [facility] Last Admin: 03/13/19 04:48 Dose: Not Given Aspirin (Ecotrin) 81 mg PO DAILY [facility] Last Admin: 03/12/19 09:52 Dose: 81 mg Cilostazol (Pletal) 100 mg PO BID [facility] Last Admin: 03/12/19 17:10 Dose: 100 mg Diltiazem HCl (Cardizem) 30 mg PO Q6H [facility] Last Admin: 03/13/19 05:00 Dose: 30 mg Escitalopram Oxalate (Lexapro) 10 mg PO DAILY [facility] Last Admin: 03/12/19 09:51 Dose: 10 mg Folic Acid (Folic Acid) 1 mg PO DAILY [facility] Last Admin: 03/12/19 09:51 Dose: 1 mg Gabapentin (Neurontin) 100 mg PO TID [facility] Last Admin: 03/12/19 17:10 Dose: 100 mg Guaifenesin (Mucinex La) 600 mg PO BID [facility] Last Admin: 03/12/19 17:11 Dose: 600 mg Ceftriaxone Sodium 1 gm/ (Sodium Chloride) 100 mls @ 100 mls/hr IVPB DAILY [facility]; Protocol Last Admin: 03/12/19 09:56 Dose: 100 mls/hr Azithromycin 500 mg/ Sodium (Chloride) 250 mls @ 250 mls/hr IVPB Q24H [facility]; Protocol Last Admin: 03/12/19 13:23 Dose: 250 mls/hr Lorazepam (Ativan) 1 mg IVP Q6H PRN PRN Reason: Symptoms of alcohol withdrawl Last Admin: 03/09/19 21:53 Dose: 1 mg Methylprednisolone (Solu-Medrol) 40 mg IVP Q12H [facility] Last Admin: 03/13/19 05:09 Dose: 40 mg Multivitamins/Minerals (Therapeutic-M Tab) 1 tab PO DAILY [facility] Last Admin: 03/12/19 09:51 Dose: 1 tab Naltrexone HCl (Revia) 50 mg PO DAILY [facility] Last Admin: 03/12/19 09:51 Dose: 50 mg Nitroglycerin (Nitrostat Sl Tab) 0.4 mg SL Q5M PRN PRN Reason: Other Pantoprazole Sodium (Protonix Ec Tab) 40 mg PO DAILY [facility] Last Admin: 03/12/19 09:51 Dose: 40 mg Rosuvastatin Calcium (Crestor) 5 mg PO HS [facility] Last Admin: 03/12/19 21:13 Dose: 5 mg Tamsulosin HCl (Flomax) 0.4 mg PO DAILY [facility] Last Admin: 03/12/19 09:52 Dose: 0.4 mg Thiamine HCl (Vitamin B1 Tab) 100 mg PO DAILY [facility] Last Admin: 03/12/19 09:52 Dose: 100 mg Topiramate (Topamax) 50 mg PO BID [facility] Last Admin: 03/12/19 17:11 Dose: 50 mg - Labs Labs: 03/12/19 08:00 03/13/19 08:40 PT 12.7 SECONDS (9.7-12.2) H 03/08/19 18:16 INR 1.2 03/08/19 18:16 APTT 90.0 SECONDS (21-34) H D 03/09/19 12:41
[2019-03-13] MEDS: guaiFENesin 600 mg ER Tab PO SCH ×2 (10:41→17:52)
[2019-03-13] MEDS: Pantoprazole 40 mg EC Tab PO SCH (10:41)
[2019-03-13] MEDS: Multivitamin With Minerals Tab PO SCH (10:41)
[2019-03-13] MEDS: Cilostazol 100 mg Tab UD PO SCH ×2 (10:42→17:52)
[2019-03-13 10:52] LABS: LYMPHOCYTE 5 % (20-40); MONOCYTE 3 % (0-10); NEUTROPHIL 92 % (50-75); TOTAL CELLS COUNTED 100
--- NOTE | 2019-03-13 10:54 | CP.PCM.PN ---
Subjective - Date & Time of Evaluation Date of Evaluation: 03/13/19 Time of Evaluation: 06:40 - Subjective Subjective: dict Objective - Vital Signs/Intake and Output Vital Signs (last 24 hours): Temp Pulse Resp BP Pulse Ox 97.9 F 68 20 144/71 100 03/13/19 07:15 03/13/19 08:00 03/13/19 07:15 03/13/19 07:15 03/13/19 07:15 - Medications Medications: Current Medications Albuterol/Ipratropium (Duoneb 3 Mg/0.5 Mg (3 Ml) Ud) 3 ml INH RQ4 [facility] Last Admin: 03/13/19 04:48 Dose: Not Given Aspirin (Ecotrin) 81 mg PO DAILY [facility] Last Admin: 03/13/19 10:41 Dose: 81 mg Cilostazol (Pletal) 100 mg PO BID [facility] Last Admin: 03/13/19 10:42 Dose: 100 mg Diltiazem HCl (Cardizem) 30 mg PO Q6H [facility] Last Admin: 03/13/19 10:41 Dose: 30 mg Escitalopram Oxalate (Lexapro) 10 mg PO DAILY [facility] Last Admin: 03/13/19 10:41 Dose: 10 mg Folic Acid (Folic Acid) 1 mg PO DAILY [facility] Last Admin: 03/13/19 10:42 Dose: 1 mg Gabapentin (Neurontin) 100 mg PO TID [facility] Last Admin: 03/13/19 10:41 Dose: 100 mg Guaifenesin (Mucinex La) 600 mg PO BID [facility] Last Admin: 03/13/19 10:41 Dose: 600 mg Ceftriaxone Sodium 1 gm/ (Sodium Chloride) 100 mls @ 100 mls/hr IVPB DAILY [facility]; Protocol Last Admin: 03/13/19 10:43 Dose: 100 mls/hr Azithromycin 500 mg/ Sodium (Chloride) 250 mls @ 250 mls/hr IVPB Q24H [facility]; Protocol Last Admin: 03/12/19 13:23 Dose: 250 mls/hr Lorazepam (Ativan) 1 mg IVP Q6H PRN PRN Reason: Symptoms of alcohol withdrawl Last Admin: 03/09/19 21:53 Dose: 1 mg Methylprednisolone (Solu-Medrol) 40 mg IVP Q12H [facility] Last Admin: 03/13/19 05:09 Dose: 40 mg Multivitamins/Minerals (Therapeutic-M Tab) 1 tab PO DAILY [facility] Last Admin: 03/13/19 10:41 Dose: 1 tab Naltrexone HCl (Revia) 50 mg PO DAILY [facility] Last Admin: 03/13/19 10:42 Dose: 50 mg Nitroglycerin (Nitrostat Sl Tab) 0.4 mg SL Q5M PRN PRN Reason: Other Pantoprazole Sodium (Protonix Ec Tab) 40 mg PO DAILY [facility] Last Admin: 03/13/19 10:41 Dose: 40 mg Rosuvastatin Calcium (Crestor) 5 mg PO HS [facility] Last Admin: 03/12/19 21:13 Dose: 5 mg Tamsulosin HCl (Flomax) 0.4 mg PO DAILY [facility] Last Admin: 03/13/19 10:41 Dose: 0.4 mg Thiamine HCl (Vitamin B1 Tab) 100 mg PO DAILY [facility] Last Admin: 03/13/19 10:42 Dose: 100 mg Topiramate (Topamax) 50 mg PO BID [facility] Last Admin: 03/13/19 10:43 Dose: 50 mg - Labs Labs: 03/13/19 08:40 03/13/19 08:40 PT 12.7 SECONDS (9.7-12.2) H 03/08/19 18:16 INR 1.2 03/08/19 18:16 APTT 90.0 SECONDS (21-34) H D 03/09/19 12:41
[2019-03-13 11:00] LABS: ANISOCYTOSIS MARKED; LARGE PLATELETS PRESENT; MICROCYTOSIS SLIGHT; PLATELET ESTIMATE NORMAL (NORMAL)
[2019-03-13 11:01] LABS: HYPOCHROMIC MODERATE; POLYCHROMIC SLIGHT
[2019-03-13 11:03] LABS: POIKILOCYTOSIS SLIGHT; SCHISTOCYTES SLIGHT; TOXIC GRANULATION PRESENT
[2019-03-13 11:04] LABS: TEARDROP CELLS SLIGHT
[2019-03-13] MEDS: Azithromycin 500 MG in Sodium Chloride 0.9% 250 ML IVPB SCH (13:18)
--- NOTE | 2019-03-13 21:55 | CP.PCM.PN ---
Subjective - Date & Time of Evaluation Date of Evaluation: 03/13/19 Time of Evaluation: 18:10 - Subjective Subjective: Patient was seen and examined Feels chest pain and dyspnea getting better Physical examination - Additional Findings Additional findings: - Constitutional Appears: No Acute Distress - Head Exam Head Exam: NORMAL INSPECTION - Eye Exam Eye Exam: EOMI, Normal appearance - ENT Exam ENT Exam: Mucous Membranes Moist - Respiratory Exam Respiratory Exam: NORMAL BREATHING PATTERN. absent: Respiratory Distress, Rhonchi, Wheezes when auscultated - Cardiovascular Exam Cardiovascular Exam: +S1, +S2, + murmur - GI/Abdominal Exam GI & Abdominal Exam: Soft, Normal Bowel Sounds. absent: Distended, Tenderness - Extremities Exam Extremities Exam: absent: Pedal Edema, Tenderness - Neurological Exam Neurological Exam: Alert, Awake, Oriented x3 - Psychiatric Exam Psychiatric exam: Normal Mood - Skin Skin Exam: Dry, Normal Color, Warm Assessment and Plan - Assessment and Plan (Free Text) Plan: 63 y/o male with hx CAD s/p CABG, COPD, CHF, Afib. Cardiology consulted for CHF. Acute on Chronic Diastolic CHF - Continue Lasix 20mg IV BID - Monitor CMP - BNP 3040 --> 2180 - CXR at admission: worsening cardiomegaly w/development presumable pulm edema in lower lobes - Repeat CXR: improving but persistent pulmon congestion; cardiomegaly; median sternotomy wires, evidence of CABG. - Continue ASA 81mg PO daily, Losartan 50mg PO daily, Crestor 5mg PO HS Afib - Currently rate controlled - Continue Cardizem 30mg PO Q6h - Continue to monitor on telemetry Hx of CAD, s/p CABG - Continue Pletal 100mg PO BID, ASA 81mg PO daily, Losartan 50mg PO daily, Crestor 5mg PO HS Objective - Vital Signs/Intake and Output Vital Signs (last 24 hours): Temp Pulse Resp BP Pulse Ox 97.7 F 70 20 137/58 L 100 03/13/19 15:00 03/13/19 15:12 03/13/19 15:00 03/13/19 15:00 03/13/19 15:00 - Medications Medications: Current Medications Albuterol/Ipratropium (Duoneb 3 Mg/0.5 Mg (3 Ml) Ud) 3 ml INH RQ4 [facility] Last Admin: 03/13/19 19:56 Dose: 3 ml Aspirin (Ecotrin) 81 mg PO DAILY [facility] Last Admin: 03/13/19 10:41 Dose: 81 mg Cilostazol (Pletal) 100 mg PO BID [facility] Last Admin: 03/13/19 17:52 Dose: 100 mg Diltiazem HCl (Cardizem) 30 mg PO Q6H [facility] Last Admin: 03/13/19 21:20 Dose: 30 mg Escitalopram Oxalate (Lexapro) 10 mg PO DAILY [facility] Last Admin: 03/13/19 10:41 Dose: 10 mg Folic Acid (Folic Acid) 1 mg PO DAILY [facility] Last Admin: 03/13/19 10:42 Dose: 1 mg Gabapentin (Neurontin) 100 mg PO TID [facility] Last Admin: 03/13/19 17:52 Dose: 100 mg Guaifenesin (Mucinex La) 600 mg PO BID [facility] Last Admin: 03/13/19 17:52 Dose: 600 mg Ceftriaxone Sodium 1 gm/ (Sodium Chloride) 100 mls @ 100 mls/hr IVPB DAILY [facility]; Protocol Last Admin: 03/13/19 10:43 Dose: 100 mls/hr Azithromycin 500 mg/ Sodium (Chloride) 250 mls @ 250 mls/hr IVPB Q24H [facility]; Protocol Last Admin: 03/13/19 13:18 Dose: 250 mls/hr Lorazepam (Ativan) 1 mg IVP Q6H PRN PRN Reason: Symptoms of alcohol withdrawl Last Admin: 03/09/19 21:53 Dose: 1 mg Methylprednisolone (Solu-Medrol) 40 mg IVP Q12H [facility] Last Admin: 03/13/19 17:52 Dose: 40 mg Multivitamins/Minerals (Therapeutic-M Tab) 1 tab PO DAILY [facility] Last Admin: 03/13/19 10:41 Dose: 1 tab Naltrexone HCl (Revia) 50 mg PO DAILY [facility] Last Admin: 03/13/19 10:42 Dose: 50 mg Nitroglycerin (Nitrostat Sl Tab) 0.4 mg SL Q5M PRN PRN Reason: Other Pantoprazole Sodium (Protonix Ec Tab) 40 mg PO DAILY [facility] Last Admin: 03/13/19 10:41 Dose: 40 mg Rosuvastatin Calcium (Crestor) 5 mg PO HS [facility] Last Admin: 03/13/19 21:20 Dose: 5 mg Tamsulosin HCl (Flomax) 0.4 mg PO DAILY [facility] Last Admin: 03/13/19 10:41 Dose: 0.4 mg Thiamine HCl (Vitamin B1 Tab) 100 mg PO DAILY [facility] Last Admin: 03/13/19 10:42 Dose: 100 mg Topiramate (Topamax) 50 mg PO BID [facility] Last Admin: 03/13/19 17:52 Dose: 50 mg - Labs Labs: 03/13/19 08:40 03/13/19 08:40 PT 12.7 SECONDS (9.7-12.2) H 03/08/19 18:16 INR 1.2 03/08/19 18:16 APTT 90.0 SECONDS (21-34) H D 03/09/19 12:41
[2019-03-14] MEDS: Albuterol-Ipratrop 3 mg / 0.5 (3 ml) UD INH SCH ×7 (00:31→23:24)
--- NOTE | 2019-03-14 03:28 | PN ---
DATE: 03/13/2019 SUBJECTIVE: The patient is still coughing, wheezing. Less short of breath. No nausea, vomiting. No chest pain. Feels more alert. The patient is not withdrawing. He is still depressed with flat affect. PHYSICAL EXAMINATION: VITAL SIGNS: Blood pressure is 130/70, pulse 68, respiratory rate 20, temperature 99. LUNGS: Bilateral inspiratory and expiratory rhonchi. Decreased air entry. CARDIOVASCULAR SYSTEM: S1 and S2. Regular. ABDOMEN: Soft. ASSESSMENT: 1. Acute exacerbation of chronic obstructive pulmonary disease. 2. Tracheobronchitis. 3. Hypertension. 4. Coronary artery disease. PLAN: Medical management. Monitor the patient. Dennys Vasquez MD
[2019-03-14] MEDS: MethylPREDNISolone 40 mg Vial IVP SCH ×2 (05:23→17:30)
[2019-03-14] MEDS: Cilostazol 100 mg Tab UD PO SCH ×2 (10:43→17:31)
[2019-03-14] MEDS: Pantoprazole 40 mg EC Tab PO SCH (10:49)
[2019-03-14] MEDS: guaiFENesin 600 mg ER Tab PO SCH ×2 (10:49→17:31)
[2019-03-14] MEDS: Multivitamin With Minerals Tab PO SCH (10:50)
[2019-03-14] MEDS: Azithromycin 500 MG in Sodium Chloride 0.9% 250 ML IVPB SCH (13:26)
--- NOTE | 2019-03-14 17:44 | CP.PCM.PN ---
Subjective - Date & Time of Evaluation Date of Evaluation: 03/14/19 Time of Evaluation: 11:00 - Subjective Subjective: patient seen and examined Sitting comfortably in no distress Slight cough Difficulty sleeping at night Patient states that he had sleep study done 2 years ago and was told obstructive sleep apnea but never followed up for CPAP titration Objective - Vital Signs/Intake and Output Vital Signs (last 24 hours): Temp Pulse Resp BP Pulse Ox 98.2 F 65 20 137/69 98 03/14/19 15:29 03/14/19 15:29 03/14/19 15:29 03/14/19 15:29 03/14/19 15:29 Intake and Output: 03/14/19 03/14/19 06:59 18:59 Intake Total 30 100 Balance 30 100 - Medications Medications: Current Medications Albuterol/Ipratropium (Duoneb 3 Mg/0.5 Mg (3 Ml) Ud) 3 ml INH RQ4 [facility] Last Admin: 03/14/19 11:20 Dose: 3 ml Aspirin (Ecotrin) 81 mg PO DAILY [facility] Last Admin: 03/14/19 10:49 Dose: 81 mg Cilostazol (Pletal) 100 mg PO BID [facility] Last Admin: 03/14/19 17:31 Dose: 100 mg Diltiazem HCl (Cardizem) 30 mg PO Q6H [facility] Last Admin: 03/14/19 17:00 Dose: 30 mg Escitalopram Oxalate (Lexapro) 10 mg PO DAILY [facility] Last Admin: 03/14/19 10:49 Dose: 10 mg Folic Acid (Folic Acid) 1 mg PO DAILY [facility] Last Admin: 03/14/19 10:49 Dose: 1 mg Gabapentin (Neurontin) 100 mg PO TID [facility] Last Admin: 03/14/19 17:31 Dose: 100 mg Guaifenesin (Mucinex La) 600 mg PO BID [facility] Last Admin: 03/14/19 17:31 Dose: 600 mg Ceftriaxone Sodium 1 gm/ (Sodium Chloride) 100 mls @ 100 mls/hr IVPB DAILY [facility]; Protocol Last Admin: 03/14/19 10:57 Dose: 100 mls/hr Azithromycin 500 mg/ Sodium (Chloride) 250 mls @ 250 mls/hr IVPB Q24H [facility]; Protocol Last Admin: 03/14/19 13:26 Dose: 250 mls/hr Lorazepam (Ativan) 1 mg IVP Q6H PRN PRN Reason: Symptoms of alcohol withdrawl Last Admin: 03/09/19 21:53 Dose: 1 mg Methylprednisolone (Solu-Medrol) 40 mg IVP Q12H [facility] Last Admin: 03/14/19 17:30 Dose: 40 mg Multivitamins/Minerals (Therapeutic-M Tab) 1 tab PO DAILY [facility] Last Admin: 03/14/19 10:50 Dose: 1 tab Naltrexone HCl (Revia) 50 mg PO DAILY [facility] Last Admin: 03/14/19 10:51 Dose: 50 mg Nitroglycerin (Nitrostat Sl Tab) 0.4 mg SL Q5M PRN PRN Reason: Other Pantoprazole Sodium (Protonix Ec Tab) 40 mg PO DAILY [facility] Last Admin: 03/14/19 10:49 Dose: 40 mg Rosuvastatin Calcium (Crestor) 5 mg PO HS [facility] Last Admin: 03/13/19 21:20 Dose: 5 mg Tamsulosin HCl (Flomax) 0.4 mg PO DAILY [facility] Last Admin: 03/14/19 10:49 Dose: 0.4 mg Thiamine HCl (Vitamin B1 Tab) 100 mg PO DAILY [facility] Last Admin: 03/14/19 10:49 Dose: 100 mg Topiramate (Topamax) 50 mg PO BID [facility] Last Admin: 03/14/19 17:31 Dose: 50 mg - Labs Labs: 03/13/19 08:40 03/13/19 08:40 PT 12.7 SECONDS (9.7-12.2) H 03/08/19 18:16 INR 1.2 03/08/19 18:16 APTT 90.0 SECONDS (21-34) H D 03/09/19 12:41 - Head Exam Head Exam: ATRAUMATIC, NORMOCEPHALIC - ENT Exam ENT Exam: Mucous Membranes Moist - Neck Exam Neck Exam: Normal Inspection - Respiratory Exam Respiratory Exam: Clear to Ausculation Bilateral Assessment and Plan (1) COPD exacerbation Assessment & Plan: continue nebulizer treatment, antibiotics and steroids Followup sleep study Status: Acute (2) CHF (congestive heart failure) Status: Acute
[2019-03-14 19:28] LABS: ABG ALLEN TEST POS; ARTERIAL BLOOD GAS HCO3 27.2 mmol/L (21-28); ARTERIAL BLOOD GAS HEMOGLOBIN 10.3 g/dL (11.7-17.4); ARTERIAL BLOOD GAS O2 SAT 99.4 % (95-98); ARTERIAL BLOOD GAS PCO2 38 mm/Hg (35-45); ARTERIAL BLOOD GAS PH 7.46 (7.35-7.45); ARTERIAL BLOOD GAS PO2 94 mm/Hg (80-100); ARTERIAL BLOOD GAS TCO2 28.2 mmol/L (22-28)
--- NOTE | 2019-03-14 20:24 | CP.PCM.PN ---
Subjective - Date & Time of Evaluation Date of Evaluation: 03/14/19 Time of Evaluation: 07:40 - Subjective Subjective: dict Objective - Vital Signs/Intake and Output Vital Signs (last 24 hours): Temp Pulse Resp BP Pulse Ox 98.2 F 65 20 137/69 98 03/14/19 15:29 03/14/19 15:29 03/14/19 15:29 03/14/19 15:29 03/14/19 15:29 Intake and Output: 03/14/19 03/15/19 18:59 06:59 Intake Total 100 Balance 100 - Medications Medications: Current Medications Albuterol/Ipratropium (Duoneb 3 Mg/0.5 Mg (3 Ml) Ud) 3 ml INH RQ4 [facility] Last Admin: 03/14/19 11:20 Dose: 3 ml Aspirin (Ecotrin) 81 mg PO DAILY [facility] Last Admin: 03/14/19 10:49 Dose: 81 mg Cilostazol (Pletal) 100 mg PO BID [facility] Last Admin: 03/14/19 17:31 Dose: 100 mg Diltiazem HCl (Cardizem) 30 mg PO Q6H [facility] Last Admin: 03/14/19 17:00 Dose: 30 mg Escitalopram Oxalate (Lexapro) 10 mg PO DAILY [facility] Last Admin: 03/14/19 10:49 Dose: 10 mg Folic Acid (Folic Acid) 1 mg PO DAILY [facility] Last Admin: 03/14/19 10:49 Dose: 1 mg Gabapentin (Neurontin) 100 mg PO TID [facility] Last Admin: 03/14/19 17:31 Dose: 100 mg Guaifenesin (Mucinex La) 600 mg PO BID [facility] Last Admin: 03/14/19 17:31 Dose: 600 mg Ceftriaxone Sodium 1 gm/ (Sodium Chloride) 100 mls @ 100 mls/hr IVPB DAILY [facility]; Protocol Last Admin: 03/14/19 10:57 Dose: 100 mls/hr Azithromycin 500 mg/ Sodium (Chloride) 250 mls @ 250 mls/hr IVPB Q24H [facility]; Protocol Last Admin: 03/14/19 13:26 Dose: 250 mls/hr Lorazepam (Ativan) 1 mg IVP Q6H PRN PRN Reason: Symptoms of alcohol withdrawl Last Admin: 03/09/19 21:53 Dose: 1 mg Methylprednisolone (Solu-Medrol) 40 mg IVP Q12H [facility] Last Admin: 03/14/19 17:30 Dose: 40 mg Multivitamins/Minerals (Therapeutic-M Tab) 1 tab PO DAILY [facility] Last Admin: 03/14/19 10:50 Dose: 1 tab Naltrexone HCl (Revia) 50 mg PO DAILY [facility] Last Admin: 03/14/19 10:51 Dose: 50 mg Nitroglycerin (Nitrostat Sl Tab) 0.4 mg SL Q5M PRN PRN Reason: Other Pantoprazole Sodium (Protonix Ec Tab) 40 mg PO DAILY [facility] Last Admin: 03/14/19 10:49 Dose: 40 mg Rosuvastatin Calcium (Crestor) 5 mg PO HS [facility] Last Admin: 03/13/19 21:20 Dose: 5 mg Tamsulosin HCl (Flomax) 0.4 mg PO DAILY [facility] Last Admin: 03/14/19 10:49 Dose: 0.4 mg Thiamine HCl (Vitamin B1 Tab) 100 mg PO DAILY [facility] Last Admin: 03/14/19 10:49 Dose: 100 mg Topiramate (Topamax) 50 mg PO BID [facility] Last Admin: 03/14/19 17:31 Dose: 50 mg - Labs Labs: 03/13/19 08:40 03/13/19 08:40 PT 12.7 SECONDS (9.7-12.2) H 03/08/19 18:16 INR 1.2 03/08/19 18:16 APTT 90.0 SECONDS (21-34) H D 03/09/19 12:41
--- NOTE | 2019-03-14 22:53 | CP.PCM.PN ---
Subjective - Date & Time of Evaluation Date of Evaluation: 03/14/19 Time of Evaluation: 11:20 - Subjective Subjective: Patient seen and evaluated Feels better Improved breathing Objective - Vital Signs/Intake and Output Vital Signs (last 24 hours): Temp Pulse Resp BP Pulse Ox 98.2 F 65 20 137/69 98 03/14/19 15:29 03/14/19 15:29 03/14/19 15:29 03/14/19 15:29 03/14/19 15:29 Intake and Output: 03/14/19 03/15/19 18:59 06:59 Intake Total 100 Balance 100 - Medications Medications: Current Medications Albuterol/Ipratropium (Duoneb 3 Mg/0.5 Mg (3 Ml) Ud) 3 ml INH RQ4 [facility] Last Admin: 03/14/19 20:40 Dose: 3 ml Aspirin (Ecotrin) 81 mg PO DAILY [facility] Last Admin: 03/14/19 10:49 Dose: 81 mg Cilostazol (Pletal) 100 mg PO BID [facility] Last Admin: 03/14/19 17:31 Dose: 100 mg Diltiazem HCl (Cardizem) 30 mg PO Q6H [facility] Last Admin: 03/14/19 21:10 Dose: 30 mg Escitalopram Oxalate (Lexapro) 10 mg PO DAILY [facility] Last Admin: 03/14/19 10:49 Dose: 10 mg Folic Acid (Folic Acid) 1 mg PO DAILY [facility] Last Admin: 03/14/19 10:49 Dose: 1 mg Gabapentin (Neurontin) 100 mg PO TID [facility] Last Admin: 03/14/19 17:31 Dose: 100 mg Guaifenesin (Mucinex La) 600 mg PO BID [facility] Last Admin: 03/14/19 17:31 Dose: 600 mg Ceftriaxone Sodium 1 gm/ (Sodium Chloride) 100 mls @ 100 mls/hr IVPB DAILY [facility]; Protocol Last Admin: 03/14/19 10:57 Dose: 100 mls/hr Azithromycin 500 mg/ Sodium (Chloride) 250 mls @ 250 mls/hr IVPB Q24H [facility]; Protocol Last Admin: 03/14/19 13:26 Dose: 250 mls/hr Lorazepam (Ativan) 1 mg IVP Q6H PRN PRN Reason: Symptoms of alcohol withdrawl Last Admin: 03/09/19 21:53 Dose: 1 mg Methylprednisolone (Solu-Medrol) 40 mg IVP Q12H [facility] Last Admin: 03/14/19 17:30 Dose: 40 mg Multivitamins/Minerals (Therapeutic-M Tab) 1 tab PO DAILY [facility] Last Admin: 03/14/19 10:50 Dose: 1 tab Naltrexone HCl (Revia) 50 mg PO DAILY [facility] Last Admin: 03/14/19 10:51 Dose: 50 mg Nitroglycerin (Nitrostat Sl Tab) 0.4 mg SL Q5M PRN PRN Reason: Other Pantoprazole Sodium (Protonix Ec Tab) 40 mg PO DAILY [facility] Last Admin: 03/14/19 10:49 Dose: 40 mg Rosuvastatin Calcium (Crestor) 5 mg PO HS [facility] Last Admin: 03/14/19 21:10 Dose: 5 mg Tamsulosin HCl (Flomax) 0.4 mg PO DAILY [facility] Last Admin: 03/14/19 10:49 Dose: 0.4 mg Thiamine HCl (Vitamin B1 Tab) 100 mg PO DAILY [facility] Last Admin: 03/14/19 10:49 Dose: 100 mg Topiramate (Topamax) 50 mg PO BID [facility] Last Admin: 03/14/19 17:31 Dose: 50 mg - Labs Labs: 03/13/19 08:40 03/13/19 08:40 PT 12.7 SECONDS (9.7-12.2) H 03/08/19 18:16 INR 1.2 03/08/19 18:16 APTT 90.0 SECONDS (21-34) H D 03/09/19 12:41
--- NOTE | 2019-03-15 01:39 | PN ---
DATE: 03/15/2019 SUBJECTIVE: The patient is less short of breath, less congestion, more alert. He is in no distress. His room air PO2 is 94. PHYSICAL EXAMINATION: VITAL SIGNS: Blood pressure is 137/69, pulse 65, respiratory rate 20, temperature 98.2. LUNGS: Bilateral scattered rales and rhonchi. CARDIOVASCULAR SYSTEM: S1, S2. Regular. ABDOMEN: Soft. ASSESSMENT: 1. Exacerbation of chronic obstructive pulmonary disease. 2. Alcoholism. 3. Steroid-induced elevated sugar. PLAN: Medical management. Monitor the patient. Dennys Vasquez MD
[2019-03-15] MEDS: Albuterol-Ipratrop 3 mg / 0.5 (3 ml) UD INH SCH ×4 (03:09→19:30)
[2019-03-15] MEDS: MethylPREDNISolone 40 mg Vial IVP SCH ×2 (05:09→17:59)
[2019-03-15 07:29] VITALS: TEMP 98.2
[2019-03-15] MEDS: Pantoprazole 40 mg EC Tab PO SCH (09:55)
[2019-03-15] MEDS: Cilostazol 100 mg Tab UD PO SCH ×2 (09:55→17:58)
[2019-03-15] MEDS: guaiFENesin 600 mg ER Tab PO SCH (09:55)
[2019-03-15] MEDS: Multivitamin With Minerals Tab PO SCH (09:56)
[2019-03-15] MEDS: Azithromycin 500 MG in Sodium Chloride 0.9% 250 ML IVPB SCH (13:02)
--- NOTE | 2019-03-15 14:43 | CP.PCM.PN ---
Subjective - Date & Time of Evaluation Date of Evaluation: 03/15/19 Time of Evaluation: 11:40 - Subjective Subjective: Patient seen today, denies any chest pain, dizziness, c/o sob with minimal activity up to the BR vss and labs reviewed- stable spo2 96% on nasal canula HR controlled with cardizem Objective - Vital Signs/Intake and Output Vital Signs (last 24 hours): Temp Pulse Resp BP Pulse Ox 98.2 F 67 20 144/71 97 03/15/19 07:15 03/15/19 12:03 03/15/19 07:15 03/15/19 07:15 03/15/19 07:15 Intake and Output: 03/15/19 03/15/19 06:59 18:59 Intake Total 240 Balance 240 - Medications Medications: Current Medications Albuterol/Ipratropium (Duoneb 3 Mg/0.5 Mg (3 Ml) Ud) 3 ml INH RQ4 [facility] Last Admin: 03/15/19 11:49 Dose: 3 ml Aspirin (Ecotrin) 81 mg PO DAILY [facility] Last Admin: 03/15/19 09:56 Dose: 81 mg Cilostazol (Pletal) 100 mg PO BID [facility] Last Admin: 03/15/19 09:55 Dose: 100 mg Diltiazem HCl (Cardizem) 30 mg PO Q6H [facility] Last Admin: 03/15/19 09:56 Dose: 30 mg Escitalopram Oxalate (Lexapro) 10 mg PO DAILY [facility] Last Admin: 03/15/19 09:55 Dose: 10 mg Folic Acid (Folic Acid) 1 mg PO DAILY [facility] Last Admin: 03/15/19 09:55 Dose: 1 mg Gabapentin (Neurontin) 100 mg PO TID [facility] Last Admin: 03/15/19 13:02 Dose: 100 mg Guaifenesin (Mucinex La) 600 mg PO BID [facility] Last Admin: 03/15/19 09:55 Dose: 600 mg Ceftriaxone Sodium 1 gm/ (Sodium Chloride) 100 mls @ 100 mls/hr IVPB DAILY EMILIE; Protocol Last Admin: 03/15/19 10:57 Dose: 100 mls/hr Azithromycin 500 mg/ Sodium (Chloride) 250 mls @ 250 mls/hr IVPB Q24H EMILIE; Protocol Last Admin: 03/15/19 13:02 Dose: 250 mls/hr Lorazepam (Ativan) 1 mg IVP Q6H PRN PRN Reason: Symptoms of alcohol withdrawl Last Admin: 03/09/19 21:53 Dose: 1 mg Methylprednisolone (Solu-Medrol) 40 mg IVP Q12H [facility] Last Admin: 03/15/19 05:09 Dose: 40 mg Multivitamins/Minerals (Therapeutic-M Tab) 1 tab PO DAILY [facility] Last Admin: 03/15/19 09:56 Dose: 1 tab Naltrexone HCl (Revia) 50 mg PO DAILY [facility] Last Admin: 03/15/19 09:56 Dose: 50 mg Nitroglycerin (Nitrostat Sl Tab) 0.4 mg SL Q5M PRN PRN Reason: Other Pantoprazole Sodium (Protonix Ec Tab) 40 mg PO DAILY [facility] Last Admin: 03/15/19 09:55 Dose: 40 mg Rosuvastatin Calcium (Crestor) 5 mg PO HS [facility] Last Admin: 03/14/19 21:10 Dose: 5 mg Tamsulosin HCl (Flomax) 0.4 mg PO DAILY [facility] Last Admin: 03/15/19 09:55 Dose: 0.4 mg Thiamine HCl (Vitamin B1 Tab) 100 mg PO DAILY [facility] Last Admin: 03/15/19 09:56 Dose: 100 mg Topiramate (Topamax) 50 mg PO BID [facility] Last Admin: 03/15/19 09:55 Dose: 50 mg - Labs Labs: 03/13/19 08:40 03/13/19 08:40 PT 12.7 SECONDS (9.7-12.2) H 03/08/19 18:16 INR 1.2 03/08/19 18:16 APTT 90.0 SECONDS (21-34) H D 03/09/19 12:41 Assessment and Plan - Assessment and Plan (Free Text) Assessment: A/P Arthritis, Asthma, Benign Prostatic Hyperplasia, Bipolar Disorder, Bronchitis, CAD, Cardia Arrhythmia, COPD, Depression, Diabetes, Emphysema,presents to ED with complaint of chest tightness and epigastric pain since last night. Patient also complains of wheezing. admitted with C OPD exacerbation, Heart failure, Respiratory distress patient developed afib with RVR transferred to ICu AND HR CONTROLLED WITH CARDIZEM DRIP and change to po cardizem HR controlled Patient still dyspneic upon ambulation patient [facility] and patient in agreement D/w Dr. Vasquez cleared for discharge to [facility] today and Dr. vasquez will follow the patient at [facility] Discussed with Dr. Vasquez regarding anticoagulation for a fib not a candidate secondary to recent GI blood and chronic alcoholic
[2019-03-15 15:50] VITALS: O2SAT 95
--- NOTE | 2019-03-15 16:22 | CP.PCM.PN ---
Subjective - Date & Time of Evaluation Date of Evaluation: 03/15/19 Time of Evaluation: 12:00 - Subjective Subjective: Patient seen and examined Breathing and cough much improved Lying comfortably Complaining of difficulty sleeping at night CPAP titration study as outpatient Awaiting transfer to subacute Objective - Vital Signs/Intake and Output Vital Signs (last 24 hours): Temp Pulse Resp BP Pulse Ox 98.2 F 70 20 126/53 L 95 03/15/19 15:49 03/15/19 15:49 03/15/19 15:49 03/15/19 15:49 03/15/19 15:49 Intake and Output: 03/15/19 03/15/19 06:59 18:59 Intake Total 240 Balance 240 - Medications Medications: Current Medications Albuterol/Ipratropium (Duoneb 3 Mg/0.5 Mg (3 Ml) Ud) 3 ml INH RQ4 [facility] Last Admin: 03/15/19 11:49 Dose: 3 ml Aspirin (Ecotrin) 81 mg PO DAILY [facility] Last Admin: 03/15/19 09:56 Dose: 81 mg Cilostazol (Pletal) 100 mg PO BID [facility] Last Admin: 03/15/19 09:55 Dose: 100 mg Diltiazem HCl (Cardizem) 30 mg PO Q6H [facility] Last Admin: 03/15/19 09:56 Dose: 30 mg Escitalopram Oxalate (Lexapro) 10 mg PO DAILY [facility] Last Admin: 03/15/19 09:55 Dose: 10 mg Folic Acid (Folic Acid) 1 mg PO DAILY [facility] Last Admin: 03/15/19 09:55 Dose: 1 mg Gabapentin (Neurontin) 100 mg PO TID [facility] Last Admin: 03/15/19 13:02 Dose: 100 mg Guaifenesin (Mucinex La) 600 mg PO BID [facility] Last Admin: 03/15/19 09:55 Dose: 600 mg Ceftriaxone Sodium 1 gm/ (Sodium Chloride) 100 mls @ 100 mls/hr IVPB DAILY [facility]; Protocol Last Admin: 03/15/19 10:57 Dose: 100 mls/hr Azithromycin 500 mg/ Sodium (Chloride) 250 mls @ 250 mls/hr IVPB Q24H [facility]; Protocol Last Admin: 03/15/19 13:02 Dose: 250 mls/hr Lorazepam (Ativan) 1 mg IVP Q6H PRN PRN Reason: Symptoms of alcohol withdrawl Last Admin: 03/09/19 21:53 Dose: 1 mg Methylprednisolone (Solu-Medrol) 40 mg IVP Q12H [facility]PL[facility] Last Admin: 03/15/19 05:09 Dose: 40 mg Multivitamins/Minerals (Therapeutic-M Tab) 1 tab PO DAILY [facility] Last Admin: 03/15/19 09:56 Dose: 1 tab Naltrexone HCl (Revia) 50 mg PO DAILY [facility] Last Admin: 03/15/19 09:56 Dose: 50 mg Nitroglycerin (Nitrostat Sl Tab) 0.4 mg SL Q5M PRN PRN Reason: Other Pantoprazole Sodium (Protonix Ec Tab) 40 mg PO DAILY [facility] Last Admin: 03/15/19 09:55 Dose: 40 mg Rosuvastatin Calcium (Crestor) 5 mg PO HS [facility]PL[facility] Last Admin: 03/14/19 21:10 Dose: 5 mg Tamsulosin HCl (Flomax) 0.4 mg PO DAILY [facility] Last Admin: 03/15/19 09:55 Dose: 0.4 mg Thiamine HCl (Vitamin B1 Tab) 100 mg PO DAILY [facility] Last Admin: 03/15/19 09:56 Dose: 100 mg Topiramate (Topamax) 50 mg PO BID [facility] Last Admin: 03/15/19 09:55 Dose: 50 mg - Labs Labs: 03/13/19 08:40 03/13/19 08:40 PT 12.7 SECONDS (9.7-12.2) H 03/08/19 18:16 INR 1.2 03/08/19 18:16 APTT 90.0 SECONDS (21-34) H D 03/09/19 12:41 Assessment and Plan (1) COPD exacerbation Status: Acute (2) CHF (congestive heart failure) Status: Acute
--- NOTE | 2019-03-15 17:12 | PCM.HF ---
Heart Failure Core Measure - Heart Failure Ejection Fraction: 40 % or Greater EDA Inhibitor Prescribed: No Contraindication/Reason for not providing: on arb Beta-Frida Prescribed: None Contraindication/Reason for not providing: copd Angiotensin II Receptor Frida Prescribed: Yes AnticoagulationTherapy for Atrial Fibrillation/Atrialflutter: No Contraindication/Reason for not providing: GI bleed , Aldosterone Antagonist Prescribed: No Contraindication/Reason for not providing: ef.45 Hydralazine Nitrate Prescribed: No Contraindication/Reason for not providing: on cardizem for rate controll Implantable Cardioverter Defibrillator Therapy: No Contraindication/Reason for not providing: ef>45 Cardiac Resynchronization Therapy Prescribed: No Contraindication/Reason for not providing: ef>45 - Follow up Will be discharged to: [facility] ([facility]) Follow Up Date (must be within 7 days from discharge): 03/17/19 Follow Up Time: 18:00
[2019-03-15 18:05] VITALS: BP 108/51; PULSE 77
--- NOTE | 2019-03-15 22:48 | CP.PCM.DIS ---
Provider - Provider Date of Admission: 03/08/19 12:33 Attending physician: Dennys Vasquez MD Consults: 03/06/19 15:49 Physician Consult Routine Comment: Consulting Provider: Delfino Ryan Consulting Physician: Delfino Ryan Reason for Consult: SOB, respiratory distress 03/08/19 12:31 Cardiology Consult Routine Comment: CHF Consulting Provider: Rob Moraes Consulting Physician: Rob Moraes Reason for Consult: CHF 03/08/19 18:05 Critical Care Consult Routine Comment: Consulting Provider: Delfino Ryan Consulting Physician: Delfino Ryan Reason for Consult: Afib RVR Time Spent in preparation of Discharge (in minutes): 30 Hospital Course - Lab Results Lab Results: Micro Results 03/11/19 13:04 Nose MRSA Culture - Final MRSA DETECTED 03/08/19 23:38 Naris MRSA Culture (Admit) - Final MRSA NOT DETECTED Most Recent Lab Values WBC 8.8 K/uL (4.8-10.8) 03/13/19 08:40 RBC 4.64 Mil/uL (4.40-5.90) 03/13/19 08:40 Hgb 10.8 g/dL (12.0-18.0) L 03/13/19 08:40 Hct 36.0 % (35.0-51.0) 03/13/19 08:40 MCV 77.4 fL (80.0-94.0) L 03/13/19 08:40 MCH 23.4 pg (27.0-31.0) L 03/13/19 08:40 MCHC 30.2 g/dL (33.0-37.0) L 03/13/19 08:40 RDW 34.8 % (11.5-14.5) H 03/13/19 08:40 Plt Count 305 K/uL (130-400) 03/13/19 08:40 MPV 9.4 fL (7.2-11.7) 03/13/19 08:40 Neut % (Auto) 90.3 % (50.0-75.0) H 03/13/19 08:40 Lymph % (Auto) 3.2 % (20.0-40.0) L 03/13/19 08:40 [place] % (Auto) 6.3 % (0.0-10.0) 03/13/19 08:40 Eos % (Auto) 0.0 % (0.0-4.0) 03/13/19 08:40 Baso % (Auto) 0.2 % (0.0-2.0) 03/13/19 08:40 Neut # (Auto) 7.9 K/uL (1.8-7.0) H 03/13/19 08:40 Lymph # (Auto) 0.3 K/uL (1.0-4.3) L 03/13/19 08:40 [place] # (Auto) 0.6 K/uL (0.0-0.8) 03/13/19 08:40 Eos # (Auto) 0.0 K/uL (0.0-0.7) 03/13/19 08:40 Baso # (Auto) 0.0 K/uL (0.0-0.2) 03/13/19 08:40 Neutrophils % (Manual) 92 % (50-75) H 03/13/19 08:40 Band Neutrophils % 2 % (0-2) 03/11/19 05:47 Lymphocytes % (Manual) 5 % (20-40) L 03/13/19 08:40 Monocytes % (Manual) 3 % (0-10) 03/13/19 08:40 Toxic Granulation Present 03/13/19 08:40 Platelet Estimate Normal (NORMAL) 03/13/19 08:40 Large Platelets Present 03/13/19 08:40 Polychromasia Slight 03/13/19 08:40 Hypochromasia (manual) Moderate 03/13/19 08:40 Poikilocytosis (manual Slight 03/13/19 08:40 Anisocytosis (manual) Marked 03/13/19 08:40 Microcytosis (manual) Slight 03/13/19 08:40 Macrocytosis (manual) Slight 03/08/19 18:05 Spherocytes Slight 03/12/19 08:00 Tear Drop Cells Slight 03/13/19 08:40 Ovalocytes Slight 03/12/19 08:00 Schistocytes Slight 03/13/19 08:40 PT 12.7 SECONDS (9.7-12.2) H 03/08/19 18:16 INR 1.2 03/08/19 18:16 APTT 90.0 SECONDS (21-34) H D 03/09/19 12:41 Puncture Site Rra 03/14/19 19:25 pCO2 38 mm/Hg (35-45) 03/14/19 19:25 pO2 94 mm/Hg (80-100) 03/14/19 19:25 HCO3 27.2 mmol/L (21-28) 03/14/19 19:25 ABG pH 7.46 (7.35-7.45) H 03/14/19 19:25 ABG Total CO2 28.2 mmol/L (22-28) H 03/14/19 19:25 ABG O2 Saturation 99.4 % (95-98) H 03/14/19 19:25 ABG Base Excess 3.0 mmol/L (-2.0-3.0) 03/14/19 19:25 ABG Hemoglobin 10.3 g/dL (11.7-17.4) L 03/14/19 19:25 ABG Carboxyhemoglobin 2.7 % (0.5-1.5) H 03/14/19 19:25 POC ABG HHb (Measured) 0.6 % (0.0-5.0) 03/14/19 19:25 ABG Methemoglobin 1.6 % (0.0-3.0) 03/14/19 19:25 Indra Test Pos 03/14/19 19:25 A-a O2 Difference 8.0 mm/Hg 03/14/19 19:25 Respiratory Index 0.1 03/14/19 19:25 Hgb O2 Saturation 95.0 % (95.0-98.0) 03/14/19 19:25 FiO2 21.0 % 03/14/19 19:25 Sodium 137 mmol/L (132-148) 03/13/19 08:40 Potassium 4.4 mmol/L (3.6-5.2) 03/13/19 08:40 Chloride 102 mmol/L (98-107) 03/13/19 08:40 Carbon Dioxide 27 mmol/L (22-30) 03/13/19 08:40 Anion Gap 13 (10-20) 03/13/19 08:40 BUN 24 mg/dL (9-20) H 03/13/19 08:40 Creatinine 1.0 mg/dL (0.8-1.5) 03/13/19 08:40 Est GFR ( Amer) > 60 03/13/19 08:40 Est GFR (Non-Af Amer) > 60 03/13/19 08:40 POC Glucose (mg/dL) 277 mg/dL (65-110) H 03/15/19 11:08 Random Glucose 202 mg/dL (75-110) H 03/13/19 08:40 Calcium 9.2 mg/dl (8.6-10.4) 03/13/19 08:40 Phosphorus 3.6 mg/dL (2.5-4.5) 03/13/19 08:40 Magnesium 2.0 mg/dL (1.6-2.3) 03/13/19 08:40 Total Bilirubin 0.3 mg/dL (0.2-1.3) 03/13/19 08:40 AST 27 U/L (17-59) 03/13/19 08:40 ALT 32 U/L (21-72) 03/13/19 08:40 Alkaline Phosphatase 67 U/L (38-126) 03/13/19 08:40 Total Creatine Kinase < 20 U/L (55-170) L 03/09/19 04:04 CK-MB (Mass) 1.64 ng/mL (0.0-3.38) 03/09/19 04:04 Troponin I 0.0190 ng/mL (0.00-0.120) 03/09/19 04:04 NT-Pro-B Natriuret Pep 2180 pg/mL (0-900) H 03/08/19 18:05 Total Protein 6.1 g/dL (6.3-8.3) L 03/13/19 08:40 Albumin 3.4 g/dL (3.5-5.0) L 03/13/19 08:40 Globulin 2.7 gm/dL (2.2-3.9) 03/13/19 08:40 Albumin/Globulin Ratio 1.3 (1.0-2.1) 03/13/19 08:40 Lipase 158 U/L (23-300) 03/06/19 10:21 Free T4 1.03 ng/dL (0.78-2.19) 03/08/19 23:38 TSH 3rd Generation 1.37 mIU/L (0.46-4.68) 03/08/19 23:38 Discharge Exam - Head Exam Head Exam: ATRAUMATIC, NORMOCEPHALIC Discharge Plan - Discharge Medications Prescriptions: Nebulizer Accessories [Adult Aerosol Mask] 1 each MC Q6 #2 each Nebulizer Accessories [Air Filter] 1 each MC Q6 #2 each Nebulizer Accessories [Air Tube with Air Plugs] 1 each MC Q6 #2 each diltiaZEM CD [Cardizem CD] 120 mg PO DAILY #30 c24 Nebulizer [Compact Compressor Nebulizer] 1 dev XX PRN #1 dev Albuterol/Ipratropium [Duoneb 3 MG/3 Ml-0.5 MG/3 Ml 3 Ml] 3 ml IH Q6 30 Days neb Methylprednisolone [Medrol Dose Pack (21 tabs)] 4 mg PO DAILY #21 mg Tiotropium [Spiriva] 18 mcg IH DAILY #30 cap - Follow Up Plan Condition: STABLE Disposition: REHAB FACILITY/REHAB UNIT Instructions: Heart Healthy Diet, Heart Failure, Adult (DC), Exacerbation of COPD (DC) Additional Instructions: Please admit patient under service -Call upon patient arrival to the facility Please continue medication as per med. rec Referrals: Dennys Vasquez MD [Staff Provider] -
--- NOTE | 2019-03-16 11:05 | DS ---
DISCHARGE DIAGNOSES: 1. Acute exacerbation of chronic obstructive pulmonary disease. 2. Alcohol withdrawal, delirium tremens with alcoholism. 3. Hyperglycemia due to steroid. 4. Coronary artery disease. HISTORY OF PRESENT ILLNESS: This is a 63-year-old white male with history of chronic heavy smoking, coronary artery disease, hypertension, hyperlipidemia, who came in because of cough, congestion, shortness of breath, wheezing. The patient initially thought that he had CHF, but later on, it turns out the patient has COPD. The patient was started on Solu-Medrol, oxygen nebulizer treatment. The patient did well and the patient is for discharge. When the patient has difficulty walking, he needs more time to recuperate . He will be followed up as outpatient. PHYSICAL EXAMINATION: VITAL SIGNS: Blood pressure 108/51, pulse 77, respiratory rate 20, temperature 98.2. LUNGS: Bilateral inspiratory and expiratory rhonchi. Decreased air entry. CARDIOVASCULAR SYSTEM: S1 and S2, regular. ABDOMEN: Soft. PLAN: Discharge the patient. Monitor the patient. Dennys Vasquez MD
== END 2019-03-15 20:40 | DRG 190 ==
LOC: C.ER 09:52 → C.9E 14:12 → C.5S 15:03 → OBSVTOIN 03-08 12:33 → C.9I 03-08 18:33 → C.6T 03-11 12:57
PROVIDERS: ADMIT Internal Medicine; ATTEND Internal Medicine
DX: J44.1 Chronic obstructive pulmonary disease with (acute) exacerbation (principal); I50.33 Acute on chronic diastolic (congestive) heart failure; F10.231 Alcohol dependence with withdrawal delirium; I11.0 Hypertensive heart disease with heart failure; G47.33 Obstructive sleep apnea (adult) (pediatric); I25.119 Atherosclerotic heart disease of native coronary artery with unspecified angina pectoris; I48.91 Unspecified atrial fibrillation; J43.9 Emphysema, unspecified; N40.0 Benign prostatic hyperplasia without lower urinary tract symptoms; R56.9 Unspecified convulsions; Z95.1 Presence of aortocoronary bypass graft; Z99.81 Dependence on supplemental oxygen; I70.0 Atherosclerosis of aorta; E78.5 Hyperlipidemia, unspecified; F17.210 Nicotine dependence, cigarettes, uncomplicated; F41.9 Anxiety disorder, unspecified; D50.9 Iron deficiency anemia, unspecified; B19.20 Unspecified viral hepatitis C without hepatic coma; F31.9 Bipolar disorder, unspecified; M19.90 Unspecified osteoarthritis, unspecified site; E09.65 Drug or chemical induced diabetes mellitus with hyperglycemia; T38.0X5A Adverse effect of glucocorticoids and synthetic analogues, initial encounter